=== PATIENT | female | born 1970 | race Caucasian/White ===

== ENCOUNTER 2016-05-04 02:36 | Inpatient (IN) | payer MEDICAID, OTHER ==
[2016-05-04] VITALS (12 sets, daily range): BP systolic 81–127; BP diastolic 47–78; PULSE 55–113; RESP 20–36; TEMP 99; Ht 167.6 cm; Wt 90.0 kg
[~2016-05-04] VITALS: Ht 167.6 cm; Wt 90.0 kg
[~2016-05-04 02:36] MED LIST: ACET650S13 PR; ASCO500S2 GTB; ATOR20TA38 GTB; BISA10SU58 PR; CLON-379 PO; CRAN3875 GTB; ENOX80DI12 SC; FAMO20TA18 PO; FER325 GTB; HYDR-3498 PO; HYDR-3671 PO; INSU100C SC; IPRA12.93 INHALATION; LEVE500S9 PO; MAGN2400 PO; MULT9LIQ4 GTB; ONDA4DIS4 IV; POLY15DR42 BOTH EYES; SENN-53 PO; UDREG GTB
[2016-05-04] MEDS ORDERED: IPRATROPIUM (NEB) 0.5 MG/2.5 ML AMP INH STA (02:44)
[2016-05-04] MEDS ORDERED: ALBUTEROL 0.5% (NEB) 2.5 MG/0.5 ML AMP INH STA (02:44)
--- NOTE | 2016-05-04 03:18 | RADRPT ---
PROCEDURE: CHEST - 1 VIEW CLINICAL INDICATION: 46-year-old female with shortness of breath. TECHNIQUE: A single frontal AP semi-erect view of the chest was performed portably. The images we re reviewed on a PACS workstation. COMPARISON: Chest x-ray January 08, 2016 FINDINGS: The cardiomediastinal silhouette is within normal limits. There is a shallow inspiration. There is no evidence for an infiltrate. There is no evidence for congestive heart failure. There is no evid ence for pneumothorax. The osseous structures are intact. IMPRESSION: No evidence for active cardiopulmonary disease. .Dimitri Montgomery MD, MD Date Time Electronically viewed and signed by .Dimitri Montgomery MD, on 05/04/2016 03:17 .Kathy/
[2016-05-04] MEDS ORDERED: SODIUM CHLORIDE 0.9% 1L BAG IV* STA (03:33)
[2016-05-04 03:35] LABS: ADD UMIC YES; URINE BILIRUBIN (Dip) 2+ (NEGATIVE); URINE BLOOD (Dip) TRACE (NEGATIVE); URINE COLOR AMBER (YELLOW); URINE GLUCOSE (Dip) NEGATIVE (NEGATIVE); URINE KETONES (Dip) 15 (NEGATIVE); URINE LEUKOCYTE ESTERASE (Dip) 1+ (NEGATIVE); URINE NITRITE (Dip) POSITIVE (NEGATIVE); URINE TOTAL PROTEIN (Dip) 2+ (NEGATIVE); URINE UROBILINOGEN (Dip) 1.0 E.U./dL (0.1-1.0)
[2016-05-04 03:38] LABS: BASOPHILS % 0.2 % (0.0-2.0); EOSINOPHILS # 0.3 10^3/ul (0.0-0.5); HEMATOCRIT 28.1 % (37.0-47.0); HEMOGLOBIN 9.4 g/dl (12.0-16.0); LYMPHOCYTES % 7.1 % (15.0-51.0); MEAN CORPUSCULAR HEMOGLOBIN 30.1 pg (29.0-33.0); MEAN CORPUSCULAR HGB CONC 33.7 g/dl (32.0-37.0); MEAN CORPUSCULAR VOLUME 89.3 fl (82.0-101.0); MEAN PLATELET VOLUME 9.7 fl (7.4-10.4); MONOCYTE # 0.5 10^3/ul (0.3-0.9); MONOCYTES % 3.3 % (0.0-11.0); NEUTROPHIL # 12.7 10^3/ul (1.6-7.5); NEUTROPHILS % 87.4 % (39.0-77.0); PLATELET COUNT 355 10^3/UL (140-440); RED BLOOD COUNT 3.14 10^6/ul (4.20-5.40); RED CELL DISTRIBUTION WIDTH 14.9 % (11.5-14.5); UNCORRECTED WBC 14.5 10^3/ul (4.8-10.8); WHITE BLOOD COUNT 14.5 10^3/ul (4.8-10.8)
[2016-05-04 03:48] LABS: CONDITION 1; LH ANALYZER COMMENTS 1; SUSPECT 1
[2016-05-04 03:57] LABS: INR 1.26; PROTIME 15.9 Sec (12.2-14.2); PT RATIO 1.2
[2016-05-04 03:58] LABS: ALBUMIN 3.2 g/dl (3.3-4.9); CHLORIDE 121 mmol/L (97-110)
[2016-05-04] MEDS ORDERED: CEFEPIME 2GM/50 ML (PMX) 50 ML IVPB STA (03:58)
[2016-05-04 03:59] LABS: SODIUM 156 mmol/L (135-144)
[2016-05-04] MEDS ORDERED: VANCOMYCIN 1 GM (PMX) 250 ML IVPB ONE (04:00)
[2016-05-04 04:01] LABS: ALBUMIN/GLOBULIN RATIO 0.72; ALKALINE PHOSPHATASE 389 IU/L (42-121); ANION GAP 23 (8-16); ASPARTATE AMINO TRANSFERASE 19 IU/L (15-46); BLOOD UREA NITROGEN 89 mg/dl (7-20); CARBON DIOXIDE 15 mmol/L (21-31); CREATININE 3.26 mg/dl (0.44-1.00); TOTAL PROTEIN 7.6 g/dl (6.1-8.1)
[2016-05-04 04:02] LABS: ICTOTEST NEGATIVE (NEGATIVE)
[2016-05-04 04:02] LABS: ALANINE AMINOTRANSFERASE 32 IU/L (13-69); CALCIUM 8.8 mg/dl (8.4-10.2); GLUCOSE 213 mg/dl (70-220)
[2016-05-04 04:04] LABS: POTASSIUM 2.9 mmol/L (3.5-5.1)
[2016-05-04 04:04] LABS: BACTERIA,URINE MODERATE; SQUAMOUS EPITHELIAL CELL,UR MODERATE
[2016-05-04 04:24] LABS: TROPONIN-I < 0.012 ng/ml (0.00-0.12)
[2016-05-04 04:25] LABS: PARTIAL THROMBOPLASTIN TIME 29.9 Sec (25.0-35.0)
[2016-05-04] MEDS ORDERED: POTASSIUM CHLORIDE 20 MEQ POWDER FOR ORAL SOLN GTB ONE (04:30)
[2016-05-04] MEDS ORDERED: POTASSIUM CHLORIDE 50 ML IVPB ONE (04:30)
--- NOTE | 2016-05-04 05:53 | ERA ---
ER Documentation Chief Complaint Date/Time DATE: 05/04/16 TIME: 05:51 Chief Complaint effort against vent noted by SO, requested transport to ER HPI This is a 46-year-old female brought in by rescue. Patient is a DNR and do not transfer, however the patient's requests that she be transferred to the ER as he noticed an increased work of breathing. History is per EMS when she noticing a transfer sheet. Patient cannot provide any relevant history secondary to baseline mental status. ROS All systems reviewed and are negative except as per history of present illness. Medications Home Meds Reported Medications Metoclopramide* (Reglan*) 10 Mg/10 Ml Soln, 10 ML GTB, ML 10/23/15 Famotidine* (Famotidine*) 20 Mg Tablet, 20 MG PO DAILY, #30 TAB 10/23/15 Multivit &Minerals/Ferrous Fum (MULTIVITAMIN LIQUID) 9 Mg/15 Ml Liquid, 5 CU GTB DAILY 10/23/15 Magnesium Hydroxide* (Milk Of Magnesia*) 2,400 Mg/10 Oral.susp, 30 ML PO DAILY , ML 10/23/15 Levetiracetam* (Keppra*) 500 Mg/5 Ml Solution, 10 ML PO Q12 for 30 Days, BOTTLE 10/23/15 Ferrous Sulfate* (Ferrous Sulfate*) 325 Mg Tabec, 330 MG GTB TID, TAB 10/23/15 Bisacodyl* (Dulcolax*) 10 Mg/Supp.rect Supp.rect, 10 MG AR Q24H Y for CONSTIPATION, SUPP.RECT 10/23/15 Hydralazine Hcl* (Hydralazine Hcl*) 25 Mg Tab, 25 MG PO Q6, #90 TAB 10/23/15 Clonidine Hcl* (Clonidine Hcl*) 0.1 Mg Tab, 0.1 MG PO Q6, TAB 10/23/15 Ascorbic Acid* (Vitamin C* Liq) 500 Mg/5 Ml Syrup, 500 MG GTB DAILY, ML 10/23/15 Cran/Vitc/Mannose/Inulin/Brom (Uti-Stat Liquid) 3,875 Mg/30 Ml Liquid, 3875 MG GTB DAILY 10/23/15 Atorvastatin Calcium* (Atorvastatin Calcium*) 20 Mg Tablet, 20 MG GTB QHS, #30 TAB 10/23/15 Ipratropium Lud[place]* (Atrovent HFA*) 12.9 Gm Aer.w.adap, 2 PUFF INHALATION Q4 for SHORTNESS OF BREATH, #1 INHALER 08/29/15 Hydrocodone Bit-Acetaminophen* (Schuyler*) 5-325 Mg Tab, 1 TAB PO Q6 Y for PAIN, TAB 08/29/15 Ondansetron HCl/Pf (Ondansetron HCl 4 mg/2 ml Syr) 4 Mg/2 Ml Syringe, 4 MG IV Q6 Y for NAUSEA AND/OR VOMITING 08/29/15 Sennosides* (Senna Lax*) 8.6 Mg Tablet, 2 TAB PO DAILY, TAB 08/29/15 Acetaminophen* (Acetaminophen* Supp) 650 Mg/Supp.rect Supp.rect, 650 MG AR Q4 Y for PAIN OR TEMP ABOVE 38C, SUPP.RECT 08/29/15 Insulin Lispro (Humalog) 100 U/Ml Cartridge, 0 SC SLIDING SCALE AC, EA 08/29/15 Enoxaparin Sodium* (Lovenox*) 80 Mg/0.8 Ml Disp.syrin, 80 MG SC Q12, SYR 08/29/15 Artificial Tears* (Artificial Tears* Ophth) 15 ml Opht, 1 DROP BOTH EYES Q4H WHILE AWAKE Y for DRY EYES, EA 08/29/15 Allergies Allergies: Coded Allergies: No Known Allergy (Unverified , 10/23/15) PMhx/Soc History of Surgery: Yes (c section, peg, trach) Anesthesia Reaction: No Hx Neurological Disorder: Yes (cva) Hx Respiratory Disorders: Yes (resp failure, trach,pe) Hx Cardiac Disorders: Yes (htn, cad, chf) Hx Psychiatric Problems: No Hx Miscellaneous Medical Probl: Yes (CHRONIC ENCEPHALOPATHY) Hx Alcohol Use: No Hx Substance Use: No Hx Tobacco Use: Yes Smoking Status: Former smoker Physical Exam Vitals Vital Signs Date Time Temp Pulse Resp B/P Pulse Ox O2 Delivery O2 Flow Rate FiO2 05/04/16 05:14 120 37 100 40 05/04/16 03:16 121 39 107/54 100 Mechanical Ventilator T Tube Trach Collar 05/04/16 02:47 99.8 124 36 137/71 100 05/04/16 02:45 124 41 100 40 Physical Exam Const: [] Head: Atraumatic Eyes: Normal Conjunctiva ENT: Normal External Ears, Nose and Mouth. Neck: Full range of motion..~ No meningismus. Resp: Clear to auscultation bilaterally Cardio: Regular rate and rhythm, no murmurs Abd: Soft, non tender, non distended. Normal bowel sounds Skin: No petechiae or rashes Back: No midline or flank tenderness Ext: No cyanosis, or edema Neur: Awake and alert Psych: Normal Mood and Affect Result Diagram: 05/04/1630905/04/16 0310 Results 24 hrs Laboratory Tests Test 05/04/16 03:08 05/04/16 03:10 Urine Bacteria MODERATE Urine Bilirubin 2+ Urine Clarity CLEAR Urine Color MARIS Urine Glucose NEGATIVE% Urine Hemoglobin TRACE Urine Ictotest NEGATIVE Urine Ketones 15 Urine Leukocyte Esterase 1+ Urine Microscopic RBC 2-5/HPF Urine Microscopic WBC 5-10/HPF Urine Nitrite POSITIVE Urine Specific [place] 1.025 Urine Squamous Epithelial Cells MODERATE Urine Total Protein 2+ Urine Urobilinogen 1.0 E.U./dL Urine Yeast MANY Urine pH 5.0 Activated Partial Thromboplast Time 29.9Sec Alanine Aminotransferase (ALT/SGPT) 32IU/L Albumin 3.2g/dl Albumin/Globulin Ratio 0.72 Alkaline Phosphatase 389IU/L Anion Gap 23 Aspartate Amino Transf (AST/SGOT) 19IU/L Basophils # 0.010^3/ul Basophils % 0.2% Blood Morphology Comment Blood Urea Nitrogen 89mg/dl Calcium Level 8.8mg/dl Carbon Dioxide Level 15mmol/L Chloride Level 121mmol/L Creatinine 3.26mg/dl Direct Bilirubin 0.00mg/dl Eosinophils # 0.310^3/ul Eosinophils % 2.0% Globulin 4.40g/dl Glucose Level 213mg/dl Hematocrit 28.1% Hemoglobin 9.4g/dl INR International Normalized Ratio 1.26 Indirect Bilirubin 0.0mg/dl Lactic Acid Level 3.3mmol/L Lymphocytes # 1.010^3/ul Lymphocytes % 7.1% Mean Corpuscular Hemoglobin 30.1pg Mean Corpuscular Hemoglobin Concent 33.7g/dl Mean Corpuscular Volume 89.3fl Mean Platelet Volume 9.7fl Monocytes # 0.510^3/ul Monocytes % 3.3% Neutrophils # 12.710^3/ul Neutrophils % 87.4% Nucleated Red Blood Cells # 0.010^3/ul Nucleated Red Blood Cells % 0.0/100WBC Platelet Count 50033^3/UL Potassium Level 2.9mmol/L Prothrombin Time 15.9Sec Prothrombin Time Ratio 1.2 Red Blood Count 3.1410^6/ul Red Cell Distribution Width 14.9% Sodium Level 156mmol/L Total Bilirubin 0.0mg/dl Total Protein 7.6g/dl Troponin I < 0.012ng/ml White Blood Count 14.510^3/ul Current Medications Medications (Trade) Dose Ordered Sig/Maximus Route PRN Reason Start Time Stop Time Status Last Admin Dose Admin Albuterol (Proventil 0.5% (Neb)) 5 mg ONCE STAT INH 05/04/16 02:44 05/04/16 02:45 DC 05/04/16 03:03 Ipratropium Lud[place] (Atrovent 0.02% (Neb)) 0.5 mg ONCE STAT INH 05/04/16 02:44 05/04/16 02:45 DC 05/04/16 03:03 Sodium Chloride 2790 ml 2,790 ml BOLUS OVER 2 HOURS STAT IV* 05/04/16 03:33 05/04/16 03:34 DC 05/04/16 03:55 Cefepime HCl 50 ml @ 100 mls/hr ONCE STAT IVPB 05/04/16 03:58 05/04/16 04:27 DC 05/04/16 04:11 Vancomycin HCl 250 ml @ 125 mls/hr ONCE ONCE IVPB 05/04/16 04:00 05/04/16 05:59 05/04/16 04:46 Potassium Chloride (KCl 20 MEQ/50 ML SW) 50 ml @ 25 mls/hr ONCE ONCE IVPB 05/04/16 04:30 05/04/16 06:29 Potassium Chloride (Potassium Chloride Pwd/Soln) 20 meq ONCE ONCE GTB 05/04/16 04:30 05/04/16 04:31 DC 05/04/16 04:33 Procedures/MDM Patient's infectious symptoms have not stabilized and the patient is at risk of rapid decompensation. The patient will be admitted for careful hydration, antibiotic therapy, and infectious source control. Severe Sepsis Assessment: Infectious Source: [pyleonephritis] End organ damage indicated by: [Lactate > 2.0 mmol/L Hypotension( SBP < 90 or >40 mmHG drop or MAP < 65) Acute Resp Failure (sat < 92% w/o oxygen) [employer] > 2.0 INR > 1.5 Plt < 100 Bili > 2] Severe Sepsis Managment: Blood Cultures X 2 before broad spectrum antibiotics initiated within 3 hours of recognition. 30 ml/kg NS bolus Completed Initial Lactate: Elevated Repeat Lactate pending Critical Care: Time: 45 minutes Treatments/Evaluations: Emergent fluid management, while maintaining close respiratory support. Immediate broad spectrum antibiotic therapy. Simultaneous assessment for possible sources in order to direct therapy. Consideration for invasive and chemical support to prevent respiratory or cardiac collapse. Perfusion Reassessment for Septic Shock: Temp 99, Pulse 116, RR18, BP132/77 Heart Exam: [Tachycardic] Lung Exam: [No Crackles] Capillary Refill: [Delayed] Peripheral Pulses: [Radially present] Skin: [Mottled, pale] Accepting Care Team: Current data and ongoing care discussed. Time: 530 Primary Provider: rosemary Consulting: [XOXOXO] Outstanding Data: none Departure Diagnosis: Primary Impression: Sepsis associated hypotension Condition: Stable JENNIFER PHAN May 04, 2016 05:53
[2016-05-04] MEDS ORDERED: morphine 2 MG INJ IV PRN (07:30)
[2016-05-04] MEDS ORDERED: hydrALAzine 20 MG INJ IV PRN (07:30)
[2016-05-04] MEDS ORDERED: ONDANSETRON HCL IV PRN (07:30)
[2016-05-04] MEDS ORDERED: MAGNESIUM HYDROXIDE 30ML CUP PO PRN (07:30)
[2016-05-04] MEDS ORDERED: ACETAMINOPHEN 325 MG TAB PO PRN (07:30)
[2016-05-04] MEDS ORDERED: ACETAMINOPHEN 650 MG SUPP PR PRN (07:30)
[2016-05-04] MEDS ORDERED: DOCUSATE SODIUM 100 MG CAP PO PRN (07:30)
[2016-05-04] MEDS ORDERED: ONDANSETRON 4 MG INJ IV PRN ×3 (07:30)
[2016-05-04] MEDS ORDERED: NACL 0.9% 3 ML SYG IV SCH (07:30)
[2016-05-04] MEDS ORDERED: NITROGLYCERIN (SL) 0.4 MG TAB SL PRN (07:30)
[2016-05-04] MEDS ORDERED: BISACODYL 10 MG SUPP PR PRN (07:30)
[2016-05-04] MEDS ORDERED: ARTIFICIAL TEARS 15 ML OPH BOTH EYES PRN (07:30)
[2016-05-04] MEDS ORDERED: HYDROCODONE/APAP (5/325) TAB PO PRN ×2 (07:30)
[2016-05-04] MEDS ORDERED: VANCOMYCIN IV PER PHARMACY XX SCH (07:30)
[2016-05-04] MEDS ORDERED: ALBUTEROL/IPRATROPIUM (NEB) 3 ML AMP HHN PRN (07:30)
[2016-05-04] MEDS ORDERED: NA PHOSPHATE/BIPHOS 133 ML ENEMA PR PRN (07:30)
[2016-05-04] MEDS ORDERED: ENOXAPARIN 80 MG/0.8 ML SYG SC SCH (09:00)
[2016-05-04] MEDS ORDERED: GLUCOSE GEL 15 GRAM TUBE BUCCAL PRN (09:00)
[2016-05-04] MEDS ORDERED: MAGNESIUM HYDROXIDE PO SCH (09:00)
[2016-05-04] MEDS ORDERED: DEXTROSE 50% 50 ML SYRINGE IV PRN ×2 (09:00)
[2016-05-04] MEDS ORDERED: NON-FORMULARY/PATIENT OWN MED (Cran/Vitc/Mannose/Inulin/Brom (Uti-Stat Liquid) 3,875 MG) GTB SCH (09:00)
[2016-05-04] MEDS ORDERED: GLUCAGON 1 MG INJ IM PRN (09:00)
[2016-05-04] MEDS ORDERED: GLUCOSE GEL 15 GRAM TUBE PO PRN ×2 (09:00)
[2016-05-04] MEDS ORDERED: HEPARIN 5,000 UNIT/0.5 ML SYG SC SCH (09:00)
[2016-05-04 09:40] LABS: AADO2 Arterial 70.1 mmHg (7.0-24.0); Allen Test ACCEPTAB; Arterial Base Excess -8.9 mmol/L (-3.0-3); Arterial COHb 0.3 % (0.0-3.0); Arterial Fraction of Oxyhgb 98.2 % (93.0-99.0); Arterial HCO3 12.9 mmol/L (22.0-26.0); Arterial MetHb 0.5 % (0.0-1.5); Arterial Total Hemglobin 8.1 g/dl (12.0-18.0); MODE VENT - AC
[2016-05-04] MEDS: DEXTROSE 5% 1,000 ML IV SCH ×2 (09:51→17:02)
[2016-05-04] MEDS: ASCORBIC ACID 500 MG TAB PO SCH (09:52)
[2016-05-04] MEDS: SENNA TAB GTB SCH (09:52)
[2016-05-04] MEDS: LEVETIRACETAM (100 MG/ML) 5ML CUP GTB SCH ×2 (09:52→21:25)
[2016-05-04] MEDS: FAMOTIDINE 20 MG TAB PO SCH (09:52)
--- NOTE | 2016-05-04 10:01 | QN ---
Documentation Comment Observation Note: Time: 4 hours Family Hx: Negative for diabetes Evaluation: Multiple exams showed improving symptoms and no evidence of clinical decompensation. WILSON LIND MD May 04, 2016 10:01
[2016-05-04] MEDS: INSULIN ASPART [NOVOLOG] 3 ML PEN SC SCH ×4 (10:09→21:33)
--- NOTE | 2016-05-04 14:14 | HP ---
DATE OF ADMISSION: 05/04/2016 CONSULTANTS: 1. Dr. Delmar Kline 2. Infectious disease CHIEF COMPLAINT: Notation: Great amount of information was obtained from the patient's previous art and ER doctor; the patient is not able to provide any information. Effort against vent noted by [facility], requested transfer to the emergency room. 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 [facility] was found to have respiratory distress; therefore, was brought into the emergency room via EMS secondary to having effort against ventilation. The patient's reque sted that the patient be transferred to the emergency room as he noticed increased work of breathing . The patient is not able to provide any relevant history secondary to baseline mental status. PAST MEDICAL AND SURGICAL HISTORY: As above per HPI. MEDICATIONS: 1. Tylenol. 2. [place]. 3. Vitamin C. 4. Lipitor. 5. Colace. 6. Dulcolax suppository. 7. Clonidine. 8. Multivitamin. 9. Lovenox. 10. Artificial tear. 11. Famotidine. 12. Ferrous sulfate. 13. Hydralazine. 14. Insulin lispro. 15. Atrovent. 16. Keppra. 17. Milk of magnesia. 18. Reglan. 19. Zofran. 20. Senna. ALLERGIES: NO KNOWN DRUG ALLERGIES. FAMILY HISTORY: Noncontributory. SOCIAL HISTORY: She is a former smoker, resides at the [facility]. Alcohol and illic it drugs is unknown. REVIEW OF SYSTEMS: As above per HPI, otherwise unobtainable secondary to the patient is not able to provide me any information. PHYSICAL EXAMINATION: VITAL SIGNS: Temperature 99.0, pulse 109, respiration rate 30 to 38, blood pressure 99/59, saturati on 100% on mechanical valve, FIO2 of 40%. GENERAL APPEARANCE: The patient is lying in the bed, does not respond to any pain or verbal stimuli . Has right-sided facial droop. Pupils are reactive to light bilaterally. NECK: There is a tracheostomy in place. LUNGS: Clear to auscultate bilaterally. ABDOMEN: There is a PEG tube in place. GASTROINTESTINAL: Abdomen is soft, nontender, not distended. CARDIOVASCULAR: Normal S1, S2. Atrial fibrillation. GENITOURINARY: There is a Reynolds in place.: Upper and lower extremities are flaccid. Positive cecilia a, bilateral lower extremities. NEUROLOGIC: No meaningful neurologic examination, is not obtainable secondary to patient is not abl e to follow any commands. LABORATORY WORK: WBC 14.5, hemoglobin 9.4, hematocrit 28.1, platelets 355. Sodium 156, potassium 2 .9, chloride 121, bicarbonate 15, BUN 89, creatinine 3.26, glucose 213, alkaline phosphatase 389. IMAGING: Chest x-ray: No evidence of active cardiopulmonary disease. Urinalysis: Positive nitrit es, bilirubin positive 2, leukocyte esterase positive 1. ASSESSMENT AND PLAN: 1. Sepsis, likely secondary to urinary tract infection. The patient has been started on Zosyn and vancomycin. Infectious disease doctor will be consulted. 2. Ventilator-dependent respiratory failure, status post trach. Pulmonology has been consulted. 3. Acute renal insufficiency, likely secondary to sepsis versus dehydration. We will consult nephr ology. The patient has been started on IV fluids. 4. Diabetes mellitus. Place the patient on insulin sliding scale. Continue Lantus. 5. History of hemorrhagic cerebrovascular accident. No acute issues at this time. 6. Dyslipidemia. Continue Lipitor. 7. Acute on chronic respiratory failure, vent-dependent, stable at this time, the patient's oxygen saturation is stable. 8. Hypertension, well controlled on medical management. We will continue to monitor patient closely. Further recommendations, management and treatment as p er clinical course. Total amount of time that was spent for evaluation of this patient and admission workup, 50 minutes. Dictated By: AMY HANKINS MD PN/NTS Conf#: [id number] DID#: [id number]
[2016-05-04] MEDS ORDERED: POTASSIUM CHLORIDE 20 MEQ in SOD CHLORIDE 0.9% 100 ML IVPB ONE (15:30)
[2016-05-04] MEDS: MULTIVITAMINS 5 ML CUP GTB SCH (15:38)
[2016-05-04] MEDS: PIPER-TAZO 3.375 GM IV (PMX) 100 ML IVPB SCH ×2 (15:39→17:01)
[2016-05-04 15:46] LABS: ADD UMIC YES; URINE BILIRUBIN (Dip) 2+ (NEGATIVE); URINE BLOOD (Dip) NEGATIVE (NEGATIVE); URINE COLOR AMBER (YELLOW); URINE GLUCOSE (Dip) NEGATIVE (NEGATIVE); URINE KETONES (Dip) 15 (NEGATIVE); URINE LEUKOCYTE ESTERASE (Dip) TRACE (NEGATIVE); URINE NITRITE (Dip) POSITIVE (NEGATIVE); URINE TOTAL PROTEIN (Dip) 2+ (NEGATIVE); URINE UROBILINOGEN (Dip) 1.0 E.U./dL (0.1-1.0)
[2016-05-04] MEDS ORDERED: VANCOMYCIN 750 MG in SOD CHLORIDE 0.9% 150 ML IVPB SCH (16:00)
[2016-05-04 16:24] LABS: BACTERIA,URINE MANY; SQUAMOUS EPITHELIAL CELL,UR FEW
[2016-05-04 16:25] LABS: ICTOTEST NEGATIVE (NEGATIVE)
[2016-05-04 16:54] LABS: POTASSIUM 3.2 mmol/L (3.5-5.1)
--- NOTE | 2016-05-04 16:54 | CONS ---
DATE OF ADMISSION: 05/04/2016 DATE OF CONSULTATION: 05/04/2016 TYPE OF CONSULTATION: Infectious Disease. REASON FOR CONSULTATION: Antibiotic management. HISTORY OF PRESENT ILLNESS: Britt Kenny is a 26-year-old female with numerous problems who was brought in by rescue. She is a DNR. Her problems include: 1. Ventilatory dependent respiratory failure, status post trach. 2. Dysphagia, status post percutaneous endoscopic gastrostomy. 3. Chronic encephalopathy. 4. Hypertension. 5. Coronary artery disease. 6. Congestive heart failure. 7. Status post . 8. History of being a former smoker. 9. Adult-onset diabetes mellitus. 10. Shortness of breath. The patient is on numerous medications for her breathing. She was uday t in with a white count of 14.5, H and H 9.4 and 28.1, platelet count 355,000. BUN and creatinine 8 9/3.26, glucose of 213,000. PAST MEDICAL HISTORY: Operations as outlined. FAMILY HISTORY: Noncontributory. SOCIAL HISTORY: She is a former smoker. She does not drink or abuse drugs. ALLERGIES: NONE TO PENICILLIN, SULFA OR FOODS. MEDICATIONS: Per chart. REVIEW OF SYSTEMS: As per HPI. PHYSICAL EXAMINATION: GENERAL: The patient is a chronically ill-appearing female who is obtunded on a respirator. She townsend s a trach-type Reynolds. SKIN: Without generalized rash. HEENT: Within normal limits. NECK: Supple. LYMPH NODES: None palpable. CHEST: Decreased breath sounds at the bases. HEART: Without murmur or gallop. ABDOMEN: Soft, nontender, without organosplenomegaly or masses. EXTREMITIES: Without cyanosis, clubbing, or edema. RECTAL AND GENITAL: Deferred. NEUROLOGIC: No focal neurological abnormalities. A chest x-ray was done which showed no active cardiopulmonary disease. Lactic acid was drawn. Urin e cultures and blood cultures were done. The patient was started on vancomycin and cefepime. We wi ll continue her on this current regimen. I will dictate my findings to Dr. Rivero . Dictated By: PAT MACHADO MD, JD/RAMIRO Conf#: [id number] DID#: [id number]
[2016-05-04 16:57] LABS: CREATININE 3.01 mg/dl (0.44-1.00)
--- NOTE | 2016-05-04 16:57 | CONS ---
Date/Time of Note Date/Time of Note DATE: 05/04/16 TIME: 16:55 Assessment/Plan Assessment/Plan Chief Complaint/Hosp Course ALEJANDRO ATN UNDERLYING PRE RENAL AZOTEMIA HYPERNATREMIA FREE WATER DEFICIT SEPSIS RES FAILURE PLAN LYTES ANTIBIOTIC UA IV FLUID Problems: Consultation Date/Type/Reason Admit Date/Time May 04, 2016 at 05:51 Initial Consult Date Type of Consultation: [id number] 24 HR Interval Summary Subjective hx not possible: pt non-verbal Exam/Review of Systems Vital Signs Vitals Vital Signs Date Time Temp Pulse Resp B/P Pulse Ox O2 Delivery O2 Flow Rate FiO2 05/04/16 16:25 105 05/04/16 16:02 36 100 40 05/04/16 15:24 101.1 127/78 05/04/16 13:00 Mechanical Ventilator Exam Neck: supple Respiratory: diminished breath sounds Cardiovascular: regular rate and rhythm Gastrointestinal: bowel sounds (+), soft, No tender Extremities: No edema Results Result Diagram: 05/04/16 0310 05/04/16 1555 Results 24 hrs Laboratory Tests Test 05/04/16 03:03 05/04/16 03:08 05/04/16 03:10 05/04/16 05:19 Bedside Glucose 221 H Urine Bacteria MODERATE Urine Bilirubin 2+ H Urine Clarity CLEAR Urine Color MARIS Urine Glucose NEGATIVE Urine Hemoglobin TRACE Urine Ictotest NEGATIVE Urine Ketones 15 Urine Leukocyte Esterase 1+ H Urine Microscopic RBC 2-5 Urine Microscopic WBC 5-10 Urine Nitrite POSITIVE H Urine Specific [place] 1.025 Urine Squamous Epithelial Cells MODERATE Urine Total Protein 2+ H Urine Urobilinogen 1.0 E.U./dL Urine Yeast MANY Urine pH 5.0 Activated Partial Thromboplast Time 29.9 Alanine Aminotransferase (ALT/SGPT) 32 Albumin 3.2 L Albumin/Globulin Ratio 0.72 Alkaline Phosphatase 389 H Anion Gap 23 H Aspartate Amino Transf (AST/SGOT) 19 Basophils # 0.0 Basophils % 0.2 Blood Morphology Comment Blood Urea Nitrogen 89 H Calcium Level 8.8 Carbon Dioxide Level 15 L Chloride Level 121 H Creatinine 3.26 H Direct Bilirubin 0.00 Eosinophils # 0.3 Eosinophils % 2.0 Globulin 4.40 H Glucose Level 213 Hematocrit 28.1 L Hemoglobin 9.4 L INR International Normalized Ratio 1.26 Indirect Bilirubin 0.0 Lactic Acid Level 3.3 H 2.4 H Lymphocytes # 1.0 Lymphocytes % 7.1 L Mean Corpuscular Hemoglobin 30.1 Mean Corpuscular Hemoglobin Concent 33.7 Mean Corpuscular Volume 89.3 Mean Platelet Volume 9.7 # Monocytes # 0.5 Monocytes % 3.3 Neutrophils # 12.7 H Neutrophils % 87.4 H Nucleated Red Blood Cells # 0.0 Nucleated Red Blood Cells % 0.0 Platelet Count 355 Potassium Level 2.9 *L Prothrombin Time 15.9 H Prothrombin Time Ratio 1.2 Red Blood Count 3.14 L Red Cell Distribution Width 14.9 H Sodium Level 156 H Total Bilirubin 0.0 L Total Protein 7.6 Troponin I < 0.012 White Blood Count 14.5 #H Test 05/04/16 09:23 05/04/16 10:06 05/04/16 10:40 05/04/16 13:15 Arterial Blood HCO3 12.9 L Arterial Blood Base Excess -8.9 L Arterial Blood Oxygen Saturation 99.0 H David Test ACCEPTAB Arterial Blood Gas Puncture Site Right Radial Arterial Blood Carboxyhemoglobin 0.3 Arterial Blood Date Drawn 05/04/2016 9:26:30 AM Arterial Blood Methemoglobin 0.5 Arterial Blood pCO2 (Temp correct) 17.1 L Arterial Blood pH (Temp corrected) 7.495 H Arterial Blood pO2 (Temp corrected) 195.4 H Blood Gas A-a O2 Differential 70.1 H Blood Gas Actual Respiration Rate 38 Blood Gas Critical Value Read Back WILSON GAUTHIER Blood Gas Inspiratory Pressure 30.0 Blood Gas Low PEEP Setting 5.0 Blood Gas Modality VENT - AC Blood Gas Notified Time 05/04/2016 9:40:18 AM Blood Gas Notified Whom KOLTON RTAngelia Blood Gas Respiration Rate 14.0 Blood Gas Specimen Source Blood arterial Blood Gas Temperature 37.0 Blood Gas Tidal Volume 525.0 FiO2 40.0 Oxyhemoglobin Percent 98.2 Total Hemoglobin 8.1 L Bedside Glucose 193 Free Thyroxine 1.11 Lactic Acid Level 2.5 H 3.1 H Test 05/04/16 14:45 05/04/16 14:58 05/04/16 15:55 Urine Bacteria MANY Urine Bilirubin 2+ H Urine Clarity CLEAR Urine Color MARIS Urine Glucose NEGATIVE Urine Hemoglobin NEGATIVE Urine Ictotest NEGATIVE Urine Ketones 15 Urine Leukocyte Esterase TRACE H Urine Microscopic RBC 5-10 Urine Microscopic WBC 5-10 Urine Nitrite POSITIVE H Urine Specific [place] 1.020 Urine Squamous Epithelial Cells FEW Urine Total Protein 2+ H Urine Urobilinogen 1.0 E.U./dL Urine Yeast MANY Urine pH 5.0 Bedside Glucose 209 Anion Gap Pending Blood Urea Nitrogen Pending Calcium Level Pending Carbon Dioxide Level Pending Chloride Level 123 H Creatinine Pending Glucose Level Pending Potassium Level 3.2 L Sodium Level 153 H Medications Medications Current Medications Acetaminophen (Tylenol Tab) 650 mg Q6H PRN PO PAIN LEVEL 1-3 OR FEVER; Start 05/04/16 at 07:30 Acetaminophen/ Hydrocodone Bitart ([place]ason (5/325)) 1 tab Q6H PRN PO MODERATE PAIN LEVEL 4-6; Start 05/04/16 at 07:30 Morphine Sulfate (morphine) 2 mg Q4H PRN IV SEVERE PAIN LEVEL 7-10; Start at 07:30 Docusate Sodium (Colace) 100 mg Q12H PRN PO CONSTIPATION; Start 05/04/16 at 07 :30 Magnesium Hydroxide (Milk Of Mag) 30 ml DAILY PRN PO CONSTIPATION; Start 05/04 at 07:30 Sodium Biphosphate/ Sodium Phosphate (Fleet Enema) 133 ml DAILY PRN GA CONSTIPATION; Start 05/04/16 at 07:30 Heparin Sodium (Porcine) (Heparin (5000 Units/0.5 ml)) 5,000 unit Q12 SC Last administered on 05/04/16at 09:53; Admin Dose 5,000 UNIT; Start 05/04/16 at 09: 00 Ondansetron HCl (Zofran Inj) 4 mg Q6H PRN IV NAUSEA AND/OR VOMITING; Start at 07:30 Lorazepam 0.5 mg 0.5 mg Q6H PRN IV ANXIETY; Start 05/04/16 at 07:30 Piperacillin Sod/ Tazobactam Sod (Zosyn 3.375gm/ 100 ml (Pmx)) 100 ml @ 200 mls /hr Q6 IVPB Last administered on 05/04/16at 15:39; Admin Dose 200 MLS/HR; Start 05/04/16 at 12:00 Hydralazine HCl (Apresoline) 10 mg Q6H PRN IV ELEVATED BLOOD PRESSURE; Start 05/04/16 at 07:30 Nitroglycerin (Nitroglycerin (Sl Tab) 0.4 Mg) 1 tab Q5M PRN SL ANGINA; Start 05/04/16 at 07:30 Insulin Aspart (Novolog Insulin Pen) NOVOLOG *MILD* ALGORI... Q4 SC Last administered on 05/04/16at 15:46; Admin Dose 2 UNIT; Start 05/04/16 at 09:00 Acetaminophen (Tylenol Supp) 650 mg Q4 PRN GA PAIN OR TEMP ABOVE 38C; Start at 07:30 Ascorbic Acid (Vitamin C) 500 mg DAILY PO Last administered on 05/04/16at 09:52 ; Admin Dose 500 MG; Start 05/04/16 at 09:00 Atorvastatin Calcium (Lipitor) 20 mg QHS GTB ; Start 05/04/16 at 21:00 Bisacodyl (Dulcolax Supp) 10 mg Q24H PRN GA CONSTIPATION; Start 05/04/16 at 07 :30 Clonidine (Catapres) 0.1 mg Q6 PO Last administered on 05/04/16at 15:39; Admin Dose 0.1 MG; Start 05/04/16 at 12:00 Enoxaparin Sodium (Lovenox) 80 mg Q12 SC Last administered on 05/04/16 09:52 ; Admin Dose 80 MG; Start 05/04/16 at 09:00 Famotidine (Pepcid) 20 mg DAILY PO Last administered on 05/04/16 09:52; Admin Dose 20 MG; Start 05/04/16 at 09:00 Hydralazine HCl (Apresoline) 25 mg Q6 PO Last administered on 05/04/16 15:39 ; Admin Dose 25 MG; Start 05/04/16 at 12:00 Levetiracetam (Keppra Liquid) 1,000 mg Q12 GTB Last administered on 05/04/16 09:52; Admin Dose 1,000 MG; Start 05/04/16 at 09:00 Senna (Senokot) 2 tab DAILY GTB Last administered on 05/04/16 09:52; Admin Dose 2 TAB; Start 05/04/16 at 09:00 Multivitamins 5 ml 5 ml DAILY GTB Last administered on 05/04/16at 15:38; Admin Dose 5 ML; Start 05/04/16 at 09:00 Dextrose (D5W) 1,000 ml @ 100 mls/hr Q10H IV Last administered on 05/04/16at 09:51; Admin Dose 100 MLS/HR; Start 05/04/16 at 07:30 Miscellaneous Information 1 ea NOTE XX ; Start 05/04/16 at 09:00 Glucose (Glutose) 15 gm Q15M PRN PO DECREASED GLUCOSE; Start 05/04/16 at 09:00 Glucose (Glutose) 22.5 gm Q15M PRN PO DECREASED GLUCOSE; Start 05/04/16 at 09: 00 Dextrose (D50w Syringe) 25 ml Q15M PRN IV DECREASED GLUCOSE; Start 05/04/16 at 09:00 Dextrose (D50w Syringe) 50 ml Q15M PRN IV DECREASED GLUCOSE; Start 05/04/16 at 09:00 Glucagon (Glucagen) 1 mg Q15M PRN IM DECREASED GLUCOSE; Start 05/04/16 at 09: 00 Glucose 15 gm 15 gm Q15M PRN BUCCAL DECREASED GLUCOSE; Start 05/04/16 at 09:00 Vancomycin HCl/ Sodium Chloride (Vancocin/NS) 150 ml @ 75 mls/hr ONCE IVPB ; Start 05/04/16 at 16:00; Stop 05/04/16 at 17:59 Influenza Virus Vaccine (Fluzone) 0.5 ml ONCE ONCE IM* ; Start 05/05/16 at 09: 00; Stop 05/05/16 at 09:01 AMBER LIEBERMAN MD May 04, 2016 16:57
[2016-05-04] MEDS: ACETAMINOPHEN 650MG/20.3ML CUP GTB PRN (18:13)
--- NOTE | 2016-05-04 18:52 | CONS ---
DATE OF ADMISSION: 05/04/2016 DATE OF CONSULTATION: TYPE OF CONSULTATION: Nephrology patient's ECG above. Thank you, Dr. Rivero, for kindly asking me to see this patient in consultation. HISTORY OF PRESENT ILLNESS: The patient is a 46-year-old female with history of hemorrhagic CVA, presented with septic syndrome. The patient previously was admitted with a diagnosis of severe hydrocephalus status post ventriculoperitoneal shunt replacement status post [employer] shunt infection, history of large abdominal abscess status post drainage, history of MRSA infection, history of Deyanira glabrata infection, history of chronic encephalopathy, history of Proteus mirabilis UTI, history of , history of diabetes, history of PE, tracheostomy, G-tube placement, seizure disorder, dysphagia, hypertension, CKD. ALLERGY HISTORY: NEGATIVE. FAMILY HISTORY: Not available. SOCIAL HISTORY: Cannot be obtained. MEDICATION HISTORY: Listed as home medications. The patient is on: 1. [place]. 2. Ascorbic acid. 3. Lipitor. 4. Bisacodyl. 5. Clonidine. 6. Lovenox. 7. Pepcid. 8. norco. 9. Hydralazine. 10. Insulin. 11. Keppra. 12. Magnesium. 13. Reglan. 14. Multiple vitamin. 15. Senna. CURRENT MEDICATIONS: The patient is on: 1. Tylenol suppository. 2. [place]. 3. Albuterol. 4. Ascorbic acid. 5. Atorvastatin. 6. Clonidine. 7. Docusate sodium. 8. Lovenox. 9. Pepcid 10. Glucagon. 11 Heparin. 12. Insulin. 13. Hydralazine. 14. Zosyn. 15. Senna. 16. ____ivfluid 17. Vancomycin. REVIEW OF SYSTEMS: Cannot be obtained. PHYSICAL EXAMINATION: GENERAL: The patient is on vent. VITAL SIGNS: Pulse of 110, blood pressure 127/78, temperature 101.1. HEENT: No scalp lesion noted at this point. Pupils, voluntary closing of both eyes. NECK: Tracheostomy in place. MOUTH: Dry mucous membranes. LUNGS: Clear anteriorly with a few rhonchi and basilar rhonchi. CARDIOVASCULAR: S1, S2 is normal. ABDOMEN: Nontender. Bowel sounds positive. G-tube in place. No palpable mass. EXTREMITIES: No cyanosis, clubbing, edema. CENTRAL NERVOUS SYSTEM: On the vent, noncommunicative. LABORATORY DATA: WBC 14.5, hematocrit 28.1, platelet count 355. Sodium high, potassium 2.9, chloride 121, CO2 15, BUN 18, creatinine 2.26. Lactic acid 3.3 . Urine specific and ketone positive. IMPRESSION: 1. Patient has ewaeo-tn-dijfusv kidney disease. 2. Acute renal failure due to dehydration. 3. Underlying acute tubular necrosis due to sepsis. 4. Severe sepsis. 5. hypernatremia. 6. Free water deficit. 7. Hypokalemia. 8. Lactic acidosis. 9. Normal alkaline phosphatase. 10. Anemia. 11. History of tracheostomy. PLAN: To obtain a UA, urine sodium, creatinine, eosinophil, IV fluids. Follow patient's electrolytes. Ultrasound of the kidney if kidney function does improve. The patient will also have water deficit replaced with G-tube water. Thank you, Dr. Rivero, for kindly asking me to see this patient in nephrology consultation. Dictated By: AMBER MURILLO/RAMIRO Conf#: [id number] DID#: [id number] JOSE GUADALUPE
[2016-05-04] MEDS: ATORVASTATIN 20 MG TAB GTB SCH (21:25)
[2016-05-05] VITALS (62 sets, daily range): BP systolic 74–133; BP diastolic 34–80; PULSE 60–114; RESP 18–39
[2016-05-05] MEDS: DEXTROSE 5% 1,000 ML IV SCH ×2 (01:24→12:01)
[2016-05-05] MEDS: PIPER-TAZO 3.375 GM IV (PMX) 100 ML IVPB SCH ×2 (01:27→09:25)
[2016-05-05] MEDS: INSULIN ASPART [NOVOLOG] 3 ML PEN SC SCH ×6 (01:34→21:41)
[2016-05-05 06:50] LABS: BASOPHILS % 0.1 % (0.0-2.0); EOSINOPHILS # 0.5 10^3/ul (0.0-0.5); EOSINOPHILS % 3.4 % (0.0-7.0); HEMATOCRIT 24.8 % (37.0-47.0); HEMOGLOBIN 8.5 g/dl (12.0-16.0); LYMPHOCYTES % 6.3 % (15.0-51.0); MEAN CORPUSCULAR HEMOGLOBIN 30.4 pg (29.0-33.0); MEAN CORPUSCULAR HGB CONC 34.1 g/dl (32.0-37.0); MEAN CORPUSCULAR VOLUME 89.3 fl (82.0-101.0); MEAN PLATELET VOLUME 9.8 fl (7.4-10.4); MONOCYTE # 0.6 10^3/ul (0.3-0.9); NEUTROPHIL # 13.4 10^3/ul (1.6-7.5); NEUTROPHILS % 86.2 % (39.0-77.0); PLATELET COUNT 282 10^3/UL (140-440); RED BLOOD COUNT 2.78 10^6/ul (4.20-5.40); RED CELL DISTRIBUTION WIDTH 14.8 % (11.5-14.5); UNCORRECTED WBC 15.5 10^3/ul (4.8-10.8); WHITE BLOOD COUNT 15.5 10^3/ul (4.8-10.8)
[2016-05-05 06:56] LABS: ALBUMIN 2.5 g/dl (3.3-4.9)
[2016-05-05 06:56] LABS: CONDITION 1; LH ANALYZER COMMENTS 1; SUSPECT 1
[2016-05-05 06:57] LABS: POTASSIUM 3.2 mmol/L (3.5-5.1)
[2016-05-05 06:59] LABS: ALBUMIN/GLOBULIN RATIO 0.65; BILIRUBIN,INDIRECT 0.1 mg/dl (0-1.1); BILIRUBIN,TOTAL 0.1 mg/dl (0.2-1.3); CREATININE 3.39 mg/dl (0.44-1.00); TOTAL PROTEIN 6.3 g/dl (6.1-8.1)
[2016-05-05 07:00] LABS: CALCIUM 7.9 mg/dl (8.4-10.2)
[2016-05-05 07:33] LABS: THYROID STIMULATING HORMONE 2.17 MIU/L (0.465-4.680)
[2016-05-05 07:37] LABS: MAGNESIUM 2.1 mg/dl (1.7-2.5); PHOSPHORUS 3.2 mg/dl (2.5-4.9)
[2016-05-05] MEDS ORDERED: INFLUENZA VIRUS VACCINE 0.5 ML (DISPENSING) IM* ONE (09:00)
[2016-05-05] MEDS: SENNA TAB GTB SCH (09:00)
[2016-05-05] MEDS: MULTIVITAMINS 5 ML CUP GTB SCH (09:24)
[2016-05-05] MEDS: LEVETIRACETAM (100 MG/ML) 5ML CUP GTB SCH ×2 (09:24→21:37)
[2016-05-05] MEDS: ACETAMINOPHEN 650MG/20.3ML CUP GTB PRN ×2 (09:24→21:37)
[2016-05-05] MEDS: ASCORBIC ACID 500 MG TAB PO SCH (09:24)
[2016-05-05] MEDS: ENOXAPARIN 100 MG/ML SYG SC SCH (09:26)
[2016-05-05] MEDS: FAMOTIDINE 20 MG TAB PO SCH (09:26)
[2016-05-05] MEDS: VORICONAZOLE 200 MG TAB PO SCH ×2 (13:06→21:37)
--- NOTE | 2016-05-05 13:59 | PN ---
Date/Time of Note Date/Time of Note DATE: 05/05/16 TIME: 13:52 Assessment/Plan VTE Prophylaxis VTE Prophylaxis Intervention: SCD's Lines/Catheters IV Catheter Type (from Nrsg): Peripheral IV Assessment/Plan Chief Complaint/Hosp Course ASSESSMENT AND PLAN: 1. Sepsis, likely secondary to urinary tract infection versus sacral decubitus. The patient has been started on Zosyn and vancomycin. Infectious disease doctor will be consulted. We'll continue monitor patient blood pressure, if patient blood pressure started to decline we will transfer the patient to ICU 2. Ventilator-dependent respiratory failure, status post trach. Pulmonology has been consulted. 3. Acute renal insufficiency, likely secondary to sepsis versus dehydration. We will consult nephrology. The patient has been started on IV fluids. 4. Diabetes mellitus. Place the patient on insulin sliding scale. Continue Lantus. 5. History of hemorrhagic cerebrovascular accident. No acute issues at this time. 6. Dyslipidemia. Continue Lipitor. 7. Acute on chronic respiratory failure, vent-dependent, stable at this time, the patient's oxygen saturation is stable. 8. Essential Hypertension, at this time patient blood pressure is found to be hypotensive therefore we will hold all blood pressure medications 9. C. difficile toxin, start Flagyl We will continue monitor patient closely for recommendation management treatment as per clinical course Problems: Subjective 24 Hr Interval Summary Free Text/Dictation Patient was found to have systolic blood pressure of low 80s this morning After speaking to her over the phone he has decided to change the CODE STATUS from DNR to full code Patient is unresponsive to pain or verbal stimuli Exam/Review of Systems Vital Signs Vitals Vital Signs Date Time Temp Pulse Resp B/P Pulse Ox O2 Delivery O2 Flow Rate FiO2 05/05/16 12:20 106 05/05/16 11:30 74/34 05/05/16 11:19 101.4 28 100 05/05/16 11:15 40 05/04/16 20:00 Mechanical Ventilator Intake and Output 05/04/16 05/04/16 05/05/16 15:00 23:00 07:00 Intake Total 300 ml 600 ml Output Total 300 ml Balance 0 ml 600 ml Exam General: The patient is a phasic, on vent via trach, does not respond to any pain or verbal stimuli HEENT: Atraumatic, normocephalic. The pupils are equal Neck: Supple , trach in place Chest: Normal Lungs: Decreased breath sounds bilateral lower lung field, positive crackles Heart: Normal S1-S2, Regular rhythm and rate. Abdomen: Soft , nontender, nondistended , bowel sounds are present. PEG tube in place Extremities: Flaccid, + 2 edema no cyanosis Neurologic: No meaningful neurologic examination findings Skin: Stage IV sacral decubitus Results Result Diagram: 05/05/16 0500 05/05/16 0555 Results 24 hrs Laboratory Tests Test 05/04/16 14:45 05/04/16 14:58 05/04/16 15:55 05/04/16 17:06 Urine Bacteria MANY Urine Bilirubin 2+ H Urine Clarity CLEAR Urine Color MARIS Urine Eosinophils % 0.0 Urine Glucose NEGATIVE Urine Hemoglobin NEGATIVE Urine Ictotest NEGATIVE Urine Ketones 15 Urine Leukocyte Esterase TRACE H Urine Microscopic RBC 5-10 Urine Microscopic WBC 5-10 Urine Nitrite POSITIVE H Urine Osmolality 399 Urine Random Sodium 21 L Urine Specific [place] 1.020 Urine Squamous Epithelial Cells FEW Urine Total Protein 2+ H Urine Urobilinogen 1.0 E.U./dL Urine Yeast MANY Urine pH 5.0 Bedside Glucose 209 201 Anion Gap 20 H Blood Urea Nitrogen 87 H Calcium Level 8.0 L Carbon Dioxide Level 13 L Chloride Level 123 H Creatinine 3.01 H Glucose Level 194 Potassium Level 3.2 L Prealbumin 17.4 L Sodium Level 153 H Test 05/04/16 18:40 05/04/16 21:29 05/05/16 01:31 05/05/16 05:00 Lactic Acid Level 3.5 H Osmolality 341 H Bedside Glucose 156 154 Basophils # 0.0 Basophils % 0.1 Blood Morphology Comment Differential Comment AUTO w/SCAN Eosinophils # 0.5 Eosinophils % 3.4 Hematocrit 24.8 L Hemoglobin 8.5 L Lymphocytes # 1.0 Lymphocytes % 6.3 L Mean Corpuscular Hemoglobin 30.4 Mean Corpuscular Hemoglobin Concent 34.1 Mean Corpuscular Volume 89.3 Mean Platelet Volume 9.8 Monocytes # 0.6 Monocytes % 4.0 Neutrophils # 13.4 H Neutrophils % 86.2 H Nucleated Red Blood Cells # 0.0 Nucleated Red Blood Cells % 0.0 Platelet Count 282 # Red Blood Count 2.78 L Red Cell Distribution Width 14.8 H White Blood Count 15.5 H Test 05/05/16 05:02 05/05/16 05:55 05/05/16 07:49 05/05/16 11:59 Bedside Glucose 176 159 223 H Alanine Aminotransferase (ALT/SGPT) 24 Albumin 2.5 L Albumin/Globulin Ratio 0.65 Alkaline Phosphatase 270 H Anion Gap 20 H Aspartate Amino Transf (AST/SGOT) 17 Blood Urea Nitrogen 88 H Calcium Level 7.9 L Carbon Dioxide Level 13 L Chloride Level 122 H Cholesterol Level 96 L Cholesterol/HDL Ratio 8.0 Creatinine 3.39 H Direct Bilirubin 0.00 Globulin 3.80 H Glucose Level 151 HDL Cholesterol 12 L Hemoglobin A1c 6.0 H Indirect Bilirubin 0.1 LDL Cholesterol, Calculated 22 Magnesium Level 2.1 Phosphorus Level 3.2 Potassium Level 3.2 L Sodium Level 152 H Thyroid Stimulating Hormone (TSH) 2.170 Total Bilirubin 0.1 L Total Protein 6.3 # Triglycerides Level 312 H Test 05/05/16 13:05 Lactic Acid Level 3.3 H Medications Medications Current Medications Acetaminophen/ Hydrocodone Bitart ([place] (5/325)) 1 tab Q6H PRN PO MODERATE PAIN LEVEL 4-6; Start 05/04/16 at 07:30 Morphine Sulfate (morphine) 2 mg Q4H PRN IV SEVERE PAIN LEVEL 7-10; Start at 07:30 Docusate Sodium (Colace) 100 mg Q12H PRN PO CONSTIPATION; Start 05/04/16 at 07 :30 Magnesium Hydroxide (Milk Of Mag) 30 ml DAILY PRN PO CONSTIPATION; Start 05/04 at 07:30 Sodium Biphosphate/ Sodium Phosphate (Fleet Enema) 133 ml DAILY PRN [place] CONSTIPATION; Start 05/04/16 at 07:30 Ondansetron HCl (Zofran Inj) 4 mg Q6H PRN IV NAUSEA AND/OR VOMITING; Start at 07:30 Lorazepam (Ativan) 0.5 mg Q6H PRN IV ANXIETY; Start 05/04/16 at 07:30 Hydralazine HCl (Apresoline) 10 mg Q6H PRN IV ELEVATED BLOOD PRESSURE; Start 05/04/16 at 07:30 Nitroglycerin (Nitroglycerin (Sl Tab) 0.4 Mg) 1 tab Q5M PRN SL ANGINA; Start 05/04/16 at 07:30 Insulin Aspart (Novolog Insulin Pen) NOVOLOG *MILD* ALGORI... Q4 SC Last administered on 05/05/16 12:07; Admin Dose 3 UNIT; Start 05/04/16 at 09:00 Acetaminophen (Tylenol Supp) 650 mg Q4 PRN [place] PAIN OR TEMP ABOVE 38C; Start at 07:30 Ascorbic Acid (Vitamin C) 500 mg DAILY PO Last administered on 05/05/16at 09:24 ; Admin Dose 500 MG; Start 05/04/16 at 09:00 Atorvastatin Calcium (Lipitor) 20 mg QHS GTB Last administered on 05/04/16at 21 :25; Admin Dose 20 MG; Start 05/04/16 at 21:00 Bisacodyl (Dulcolax Supp) 10 mg Q24H PRN [place] CONSTIPATION; Start 05/04/16 at 07 :30 Clonidine (Catapres) 0.1 mg Q6 PO Last administered on 05/04/16 17:01; Admin Dose 0.1 MG; Start 05/04/16 at 12:00 Famotidine (Pepcid) 20 mg DAILY PO Last administered on 05/05/16at 09:26; Admin Dose 20 MG; Start 05/04/16 at 09:00 Hydralazine HCl (Apresoline) 25 mg Q6 PO Last administered on 05/04/16 17:01 ; Admin Dose 25 MG; Start 05/04/16 at 12:00 Levetiracetam (Keppra Liquid) 1,000 mg Q12 GTB Last administered on 05/05/16 09:24; Admin Dose 1,000 MG; Start 05/04/16 at 09:00 Senna (Senokot) 2 tab DAILY GTB Last administered on 05/04/16at 09:52; Admin Dose 2 TAB; Start 05/04/16 at 09:00 Multivitamins 5 ml 5 ml DAILY GTB Last administered on 05/05/16 09:24; Admin Dose 5 ML; Start 05/04/16 at 09:00 Dextrose (D5W) 1,000 ml @ 100 mls/hr Q10H IV Last administered on 05/05/16at 12:01; Admin Dose 100 MLS/HR; Start 05/04/16 at 07:30 Miscellaneous Information 1 ea NOTE XX ; Start 05/04/16 at 09:00 Glucose (Glutose) 15 gm Q15M PRN PO DECREASED GLUCOSE; Start 05/04/16 at 09:00 Glucose (Glutose) 22.5 gm Q15M PRN PO DECREASED GLUCOSE; Start 05/04/16 at 09: 00 Dextrose (D50w Syringe) 25 ml Q15M PRN IV DECREASED GLUCOSE; Start 05/04/16 at 09:00 Dextrose (D50w Syringe) 50 ml Q15M PRN IV DECREASED GLUCOSE; Start 05/04/16 at 09:00 Glucagon (Glucagen) 1 mg Q15M PRN IM DECREASED GLUCOSE; Start 05/04/16 at 09: 00 Glucose (Glutose) 15 gm Q15M PRN BUCCAL DECREASED GLUCOSE; Start 05/04/16 at 09:00 Acetaminophen (Tylenol Liquid) 650 mg Q6H PRN GTB PAIN LEVEL 1-3 OR FEVER Last administered on 05/05/16at 09:24; Admin Dose 650 MG; Start 05/04/16 at 18:30 Enoxaparin Sodium (Lovenox) 90 mg Q24H SC Last administered on 05/05/16at 09:26 ; Admin Dose 90 MG; Start 05/05/16 at 10:00 Influenza Virus Vaccine (Fluzone) 0.5 ml ONCE ONCE IM* ; Start 05/08/16 at 11: 00; Stop 05/08/16 at 11:01 Voriconazole (Vfend) 200 mg BID PO Last administered on 05/05/16at 13:06; Admin Dose 200 MG; Start 05/05/16 at 12:00 Vancomycin HCl (Vancomycin Oral Syringe) 250 mg Q6 PO ; Start 05/05/16 at 12:00 AMY HANKINS MD May 05, 2016 13:59
[2016-05-05] MEDS: VANCOMYCIN HCL 250 MG/5ML POSYG PO SCH ×2 (14:00→17:57)
[2016-05-05] MEDS ORDERED: PHENYLephrine 20MG IN 250 ML 250 ML ONE (14:04)
--- NOTE | 2016-05-05 14:44 | PN ---
DATE: 05/05/2016 SUBJECTIVE: The patient is lying comfortably in bed, spiked fever of 101.4. She is nonverbal, nonc ommunicative. INDWELLINGS: Trach, PEG, [place]. MICROBIOLOGY: Urine culture grew yeast. Blood culture have been negative. Stool for C. difficile came back positive for MRSA. ANTIMICROBIALS: Antibiotics were changed to: 1. Oral voriconazole. 2. Oral vancomycin. PHYSICAL EXAMINATION: GENERAL: Chronically ill-appearing, middle-aged woman who is in no distress. HEENT: Head atraumatic, normocephalic. Sclerae anicteric. Buccal mucosa dry. NECK: Supple. Tracheostomy present. CHEST: Rise symmetrical. Breath sounds diminished at bases. HEART: S1, S2. ABDOMEN: Soft. Bowel sounds present. EXTREMITIES: Without cyanosis. ASSESSMENT: 1. Sepsis. 2. Clostridium difficile colitis. 3. Fungal urinary tract infection. 4. Chronic respiratory failure. 5. History of infected ventriculoperitoneal shunt removal, with placement of new one. 6. History of methicillin-resistant Staphylococcus aureus intra-abdominal abscesses drainage. 7. Chronic encephalopathy. 8. Sacral decubitus. PLAN: The patient remains stable. Started on voriconazole and oral vancomycin this morning. Her ch est x-ray revealed no infiltrates. We will continue her on current regimen. Dictated By: DUTCH STEELE ADVOCACY DIRECTOR for PAT ALMONTE/RAMIRO Conf#: [id number] DID#: [id number]
[2016-05-05] MEDS: metroNIDAZOLE 500 MG TAB GTB SCH ×2 (14:57→21:37)
[2016-05-05] MEDS: PHENYLephrine 40 MG in DEXTROSE 5% 496 ML IV SCH (16:41)
[2016-05-05] MEDS: ATORVASTATIN 20 MG TAB GTB SCH (21:37)
[2016-05-05] MEDS: LORAZEPAM 2 MG INJ IV PRN (23:34)
[2016-05-06] VITALS (103 sets, daily range): BP systolic 78–142; BP diastolic 26–107; PULSE 62–103; RESP 16–37
[2016-05-06] MEDS: DEXTROSE 5% 1,000 ML IV SCH ×2 (00:06→09:36)
[2016-05-06] MEDS: VANCOMYCIN HCL 250 MG/5ML POSYG PO SCH ×4 (00:52→17:57)
[2016-05-06] MEDS: INSULIN ASPART [NOVOLOG] 3 ML PEN SC SCH ×6 (00:58→21:51)
[2016-05-06] MEDS: PHENYLephrine 40 MG in DEXTROSE 5% 496 ML IV SCH ×2 (03:07→21:52)
[2016-05-06 05:09] LABS: BASOPHILS % 0.1 % (0.0-2.0); EOSINOPHILS # 0.3 10^3/ul (0.0-0.5); EOSINOPHILS % 1.1 % (0.0-7.0); HEMATOCRIT 27.3 % (37.0-47.0); LYMPHOCYTES # 1.6 10^3/ul (0.8-2.9); LYMPHOCYTES % 6.5 % (15.0-51.0); MEAN CORPUSCULAR HEMOGLOBIN 29.9 pg (29.0-33.0); MEAN CORPUSCULAR HGB CONC 33.1 g/dl (32.0-37.0); MEAN CORPUSCULAR VOLUME 90.1 fl (82.0-101.0); MEAN PLATELET VOLUME 9.6 fl (7.4-10.4); MONOCYTE # 1.2 10^3/ul (0.3-0.9); MONOCYTES % 5.1 % (0.0-11.0); NEUTROPHIL # 21.1 10^3/ul (1.6-7.5); NEUTROPHILS % 87.2 % (39.0-77.0); PLATELET COUNT 354 10^3/UL (140-440); RED BLOOD COUNT 3.03 10^6/ul (4.20-5.40); RED CELL DISTRIBUTION WIDTH 15.8 % (11.5-14.5); UNCORRECTED WBC 24.2 10^3/ul (4.8-10.8); WHITE BLOOD COUNT 24.2 10^3/ul (4.8-10.8)
[2016-05-06 05:19] LABS: CONDITION 1; LH ANALYZER COMMENTS 1; SUSPECT 1
[2016-05-06] MEDS: metroNIDAZOLE 500 MG TAB GTB SCH ×3 (05:38→21:32)
[2016-05-06 05:46] LABS: CREATININE 3.09 mg/dl (0.44-1.00)
[2016-05-06 05:47] LABS: CALCIUM 7.3 mg/dl (8.4-10.2)
[2016-05-06 06:03] LABS: POTASSIUM 2.8 mmol/L (3.5-5.1)
[2016-05-06] MEDS: SENNA TAB GTB SCH (09:00)
[2016-05-06] MEDS ORDERED: POTASSIUM CHLORIDE 250 ML IVPB ONE (09:00)
[2016-05-06] MEDS: LEVETIRACETAM (100 MG/ML) 5ML CUP GTB SCH ×2 (09:35→21:32)
[2016-05-06] MEDS: MULTIVITAMINS 5 ML CUP GTB SCH (09:35)
[2016-05-06] MEDS: FAMOTIDINE 20 MG TAB PO SCH (09:35)
[2016-05-06] MEDS: VORICONAZOLE 200 MG TAB PO SCH ×2 (09:35→21:32)
[2016-05-06] MEDS: ASCORBIC ACID 500 MG TAB PO SCH (09:35)
[2016-05-06] MEDS: ENOXAPARIN 100 MG/ML SYG SC SCH (09:38)
--- NOTE | 2016-05-06 10:42 | PN ---
Date/Time of Note Date/Time of Note DATE: 05/06/16 TIME: 10:37 Assessment/Plan VTE Prophylaxis VTE Prophylaxis Intervention: LMWH Lines/Catheters IV Catheter Type (from Nrs): Mid Line Central line still needed: Yes Urinary Cath still in place: Yes Reason Cath still needed: other (indicate) Assessment/Plan Chief Complaint/Hosp Course ASSESSMENT AND PLAN: 1. Sepsis, likely secondary to urinary tract infection versus sacral decubitus. The patient has been started on Zosyn and vancomycin. Infectious disease consulted. We'll continue monitor patient blood pressure, if patient blood pressure started to decline we will transfer the patient to ICU 2. Ventilator-dependent respiratory failure, status post trach. Pulmonology has been consulted. 3. Acute renal insufficiency, likely secondary to sepsis versus dehydration. nephrology consulted. Continue IV fluids. 4. Diabetes mellitus. Continue sliding scale and Lantus. 5. History of cerebrovascular accident. No acute issues at this time. Patient is bed bound and a phasic 6. Dyslipidemia. Continue Lipitor. 7. Acute on chronic respiratory failure, vent-dependent, stable at this time, the patient's oxygen saturation is stable. 8. Essential Hypertension, at this time patient blood pressure is found to be hypotensive therefore we will hold all blood pressure medications 9. C. difficile toxin, continue Flagyl We will continue monitor patient closely for recommendation management treatment as per clinical course Problems: Subjective 24 Hr Interval Summary Free Text/Dictation Patient has been transferred to ICU secondary to hypotension Has been started on pressor Vent dependent Exam/Review of Systems Vital Signs Vitals Vital Signs Date Time Temp Pulse Resp B/P Pulse Ox O2 Delivery O2 Flow Rate FiO2 05/06/16 09:00 82 28 126/70 100 Mechanical Ventilator 05/06/16 08:00 99.1 05/06/16 07:30 40 Intake and Output 05/05/16 05/05/16 05/06/16 15:00 23:00 07:00 Intake Total 300 ml 1067.50 ml 864.75 ml Output Total 550 ml 485 ml 510 ml Balance -250 ml 582.50 ml 354.75 ml Exam General: The patient is a phasic, on vent via trach, does not respond to any pain or verbal stimuli HEENT: Atraumatic, normocephalic. The pupils are equal Neck: Supple , trach in place Chest: Normal Lungs: Decreased breath sounds bilateral lower lung field, positive crackles Heart: Normal S1-S2, Regular rhythm and rate. Abdomen: Soft , nontender, nondistended , bowel sounds are present. PEG tube in place Extremities: Flaccid, + 2 edema no cyanosis Neurologic: No meaningful neurologic examination findings Skin: Stage IV sacral decubitus Results Result Diagram: 05/06/16 0445 05/06/16 0445 Results 24 hrs Laboratory Tests Test 05/05/16 11:59 05/05/16 13:05 05/05/16 17:12 05/05/16 17:15 Bedside Glucose 223 H 233 H Lactic Acid Level 3.3 H 2.2 Test 05/05/16 21:36 05/06/16 00:54 05/06/16 04:45 05/06/16 05:36 Bedside Glucose 281 H 343 H 352 H Anion Gap 22 H Basophils # 0.0 Basophils % 0.1 Blood Morphology Comment Blood Urea Nitrogen 83 H Calcium Level 7.3 L Carbon Dioxide Level 10 L Chloride Level 116 H Creatinine 3.09 H Eosinophils # 0.3 Eosinophils % 1.1 Glucose Level 298 #H Hematocrit 27.3 L Hemoglobin 9.0 L Lymphocytes # 1.6 Lymphocytes % 6.5 L Mean Corpuscular Hemoglobin 29.9 Mean Corpuscular Hemoglobin Concent 33.1 Mean Corpuscular Volume 90.1 Mean Platelet Volume 9.6 Monocytes # 1.2 H Monocytes % 5.1 Neutrophils # 21.1 H Neutrophils % 87.2 H Nucleated Red Blood Cells # 0.0 Nucleated Red Blood Cells % 0.0 Platelet Count 354 # Potassium Level 2.8 *L Red Blood Count 3.03 L Red Cell Distribution Width 15.8 H Sodium Level 145 H White Blood Count 24.2 #H Test 05/06/16 09:38 Bedside Glucose 341 H Medications Medications Current Medications Acetaminophen/ Hydrocodone Bitart ([place] (5/325)) 1 tab Q6H PRN PO MODERATE PAIN LEVEL 4-6; Start 05/04/16 at 07:30 Morphine Sulfate (morphine) 2 mg Q4H PRN IV SEVERE PAIN LEVEL 7-10; Start at 07:30 Docusate Sodium (Colace) 100 mg Q12H PRN PO CONSTIPATION; Start 05/04/16 at 07 :30 Magnesium Hydroxide (Milk Of Mag) 30 ml DAILY PRN PO CONSTIPATION; Start 05/04 at 07:30 Sodium Biphosphate/ Sodium Phosphate (Fleet Enema) 133 ml DAILY PRN MD CONSTIPATION; Start 05/04/16 at 07:30 Ondansetron HCl (Zofran Inj) 4 mg Q6H PRN IV NAUSEA AND/OR VOMITING Last administered on 05/05/16at 17:56; Admin Dose 4 MG; Start 05/04/16 at 07:30 Lorazepam (Ativan) 0.5 mg Q6H PRN IV ANXIETY Last administered on 05/05/16at 23 :34; Admin Dose 0.5 MG; Start 05/04/16 at 07:30 Hydralazine HCl (Apresoline) 10 mg Q6H PRN IV ELEVATED BLOOD PRESSURE; Start 05/04/16 at 07:30 Nitroglycerin (Nitroglycerin (Sl Tab) 0.4 Mg) 1 tab Q5M PRN SL ANGINA; Start 05/04/16 at 07:30 Insulin Aspart (Novolog Insulin Pen) NOVOLOG *MILD* ALGORI... Q4 SC Last administered on 05/06/16at 09:39; Admin Dose 5 UNIT; Start 05/04/16 at 09:00 Acetaminophen (Tylenol Supp) 650 mg Q4 PRN [place] PAIN OR TEMP ABOVE 38C; Start at 07:30 Ascorbic Acid (Vitamin C) 500 mg DAILY PO Last administered on 05/06/16at 09:35 ; Admin Dose 500 MG; Start 05/04/16 at 09:00 Atorvastatin Calcium (Lipitor) 20 mg QHS GTB Last administered on 05/05/16at 21 :37; Admin Dose 20 MG; Start 05/04/16 at 21:00 Bisacodyl (Dulcolax Supp) 10 mg Q24H PRN MD CONSTIPATION; Start 05/04/16 at 07 :30 Clonidine (Catapres) 0.1 mg Q6 PO Last administered on 05/04/16at 17:01; Admin Dose 0.1 MG; Start 05/04/16 at 12:00 Famotidine (Pepcid) 20 mg DAILY PO Last administered on 05/06/16at 09:35; Admin Dose 20 MG; Start 05/04/16 at 09:00 Hydralazine HCl (Apresoline) 25 mg Q6 PO Last administered on 05/04/16at 17:01 ; Admin Dose 25 MG; Start 05/04/16 at 12:00 Levetiracetam (Keppra Liquid) 1,000 mg Q12 GTB Last administered on 05/06/16at 09:35; Admin Dose 1,000 MG; Start 05/04/16 at 09:00 Senna (Senokot) 2 tab DAILY GTB Last administered on 05/04/16at 09:52; Admin Dose 2 TAB; Start 05/04/16 at 09:00 Multivitamins 5 ml 5 ml DAILY GTB Last administered on 05/06/16at 09:35; Admin Dose 5 ML; Start 05/04/16 at 09:00 Dextrose (D5W) 1,000 ml @ 100 mls/hr Q10H IV Last administered on 05/06/16at 09:36; Admin Dose 100 MLS/HR; Start 05/04/16 at 07:30 Miscellaneous Information 1 ea NOTE XX ; Start 05/04/16 at 09:00 Glucose (Glutose) 15 gm Q15M PRN PO DECREASED GLUCOSE; Start 05/04/16 at 09:00 Glucose (Glutose) 22.5 gm Q15M PRN PO DECREASED GLUCOSE; Start 05/04/16 at 09: 00 Dextrose (D50w Syringe) 25 ml Q15M PRN IV DECREASED GLUCOSE; Start 05/04/16 at 09:00 Dextrose (D50w Syringe) 50 ml Q15M PRN IV DECREASED GLUCOSE; Start 05/04/16 at 09:00 Glucagon (Glucagen) 1 mg Q15M PRN IM DECREASED GLUCOSE; Start 05/04/16 at 09: 00 Glucose (Glutose) 15 gm Q15M PRN BUCCAL DECREASED GLUCOSE; Start 05/04/16 at 09:00 Acetaminophen (Tylenol Liquid) 650 mg Q6H PRN GTB PAIN LEVEL 1-3 OR FEVER Last administered on 05/05/16at 21:37; Admin Dose 650 MG; Start 05/04/16 at 18:30 Enoxaparin Sodium (Lovenox) 90 mg Q24H SC Last administered on 05/06/16at 09:38 ; Admin Dose 90 MG; Start 05/05/16 at 10:00 Influenza Virus Vaccine (Fluzone) 0.5 ml ONCE ONCE IM* ; Start 12/17/16 at 11: 00; Stop 05/08/16 at 11:01 Voriconazole (Vfend) 200 mg BID PO Last administered on 05/06/16at 09:35; Admin Dose 200 MG; Start 05/05/16 at 12:00 Vancomycin HCl (Vancomycin Oral Syringe) 250 mg Q6 PO Last administered on at 05:38; Admin Dose 250 MG; Start 05/05/16 at 12:00 Metronidazole 500 mg 500 mg Q8 GTB Last administered on 05/06/16at 05:38; Admin Dose 500 MG; Start 05/05/16 at 14:00 Phenylephrine HCl 40 mg/Dextrose 500 ml @ 75 mls/hr TITRATE IV Last administered on 05/06/16at 03:07; Admin Dose 37.5 MLS/HR; Start 05/05/16 at 15: 00 Potassium Chloride (KCl 40 MEQ/250 ML NS) 250 ml @ 62.5 mls/hr ONCE ONCE IVPB Last administered on 05/06/16at 09:35; Admin Dose 62.5 MLS/HR; Start at 09:00; Stop 05/06/16 at 12:59 AMY HANKINS MD May 06, 2016 10:42
--- NOTE | 2016-05-06 12:59 | CONS ---
Date/Time of Note Date/Time of Note DATE: 05/06/16 TIME: 12:57 Assessment/Plan Assessment/Plan Chief Complaint/Hosp Course IMPRESSION: 1. Patient has [id number] kidney disease. 2. Acute renal failure due to dehydration. 3. Underlying acute tubular necrosis due to sepsis. 4. Severe sepsis. 5. hypernatremia. 6. Free water deficit. 7. Hypokalemia. 8. Lactic acidosis. 9. Normal alkaline phosphatase. 10. Anemia. 11. History of tracheostomy. PLAN KCL CK LABS Problems: Consultation Date/Type/Reason Admit Date/Time May 04, 2016 at 05:51 Type of Consultation: [id number] 24 HR Interval Summary Subjective hx not possible: pt non-verbal Exam/Review of Systems Vital Signs Vitals Vital Signs Date Time Temp Pulse Resp B/P Pulse Ox O2 Delivery O2 Flow Rate FiO2 05/06/16 11:30 93 27 106/71 100 Mechanical Ventilator 05/06/16 11:09 40 05/06/16 08:00 99.1 Intake and Output 05/05/16 05/05/16 05/06/16 15:00 23:00 07:00 Intake Total 300 ml 1067.50 ml 864.75 ml Output Total 550 ml 485 ml 540 ml Balance -250 ml 582.50 ml 324.75 ml Exam Neck: supple Respiratory: diminished breath sounds Cardiovascular: regular rate and rhythm Gastrointestinal: bowel sounds (+), soft Extremities: No edema Results Result Diagram: 05/06/16 0445 05/06/16 0445 Results 24 hrs Laboratory Tests Test 05/05/16 13:05 05/05/16 17:12 05/05/16 17:15 05/05/16 21:36 Lactic Acid Level 3.3 H 2.2 Bedside Glucose 233 H 281 H Test 05/06/16 00:54 05/06/16 04:45 05/06/16 05:36 05/06/16 09:38 Bedside Glucose 343 H 352 H 341 H Anion Gap 22 H Basophils # 0.0 Basophils % 0.1 Blood Morphology Comment Blood Urea Nitrogen 83 H Calcium Level 7.3 L Carbon Dioxide Level 10 L Chloride Level 116 H Creatinine 3.09 H Eosinophils # 0.3 Eosinophils % 1.1 Glucose Level 298 #H Hematocrit 27.3 L Hemoglobin 9.0 L Lymphocytes # 1.6 Lymphocytes % 6.5 L Mean Corpuscular Hemoglobin 29.9 Mean Corpuscular Hemoglobin Concent 33.1 Mean Corpuscular Volume 90.1 Mean Platelet Volume 9.6 Monocytes # 1.2 H Monocytes % 5.1 Neutrophils # 21.1 H Neutrophils % 87.2 H Nucleated Red Blood Cells # 0.0 Nucleated Red Blood Cells % 0.0 Platelet Count 354 # Potassium Level 2.8 *L Red Blood Count 3.03 L Red Cell Distribution Width 15.8 H Sodium Level 145 H White Blood Count 24.2 #H Medications Medications Current Medications Acetaminophen/ Hydrocodone Bitart ([place] (5/325)) 1 tab Q6H PRN PO MODERATE PAIN LEVEL 4-6; Start 05/04/16 at 07:30 Morphine Sulfate (morphine) 2 mg Q4H PRN IV SEVERE PAIN LEVEL 7-10; Start at 07:30 Docusate Sodium (Colace) 100 mg Q12H PRN PO CONSTIPATION; Start 05/04/16 at 07 :30 Magnesium Hydroxide (Milk Of Mag) 30 ml DAILY PRN PO CONSTIPATION; Start 05/04 at 07:30 Ondansetron HCl (Zofran Inj) 4 mg Q6H PRN IV NAUSEA AND/OR VOMITING Last administered on 05/05/16at 17:56; Admin Dose 4 MG; Start 05/04/16 at 07:30 Lorazepam (Ativan) 0.5 mg Q6H PRN IV ANXIETY Last administered on 05/05/16at 23 :34; Admin Dose 0.5 MG; Start 05/04/16 at 07:30 Hydralazine HCl (Apresoline) 10 mg Q6H PRN IV ELEVATED BLOOD PRESSURE; Start 05/04/16 at 07:30 Nitroglycerin (Nitroglycerin (Sl Tab) 0.4 Mg) 1 tab Q5M PRN SL ANGINA; Start 05/04/16 at 07:30 Insulin Aspart (Novolog Insulin Pen) NOVOLOG *MILD* ALGORI... Q4 SC Last administered on 05/06/16at 12:53; Admin Dose 3 UNIT; Start 05/04/16 at 09:00 Acetaminophen (Tylenol Supp) 650 mg Q4 PRN [place] PAIN OR TEMP ABOVE 38C; Start at 07:30 Ascorbic Acid (Vitamin C) 500 mg DAILY PO Last administered on 05/06/16 09:35 ; Admin Dose 500 MG; Start 05/04/16 at 09:00 Atorvastatin Calcium (Lipitor) 20 mg QHS GTB Last administered on 05/05/16at 21 :37; Admin Dose 20 MG; Start 05/04/16 at 21:00 Bisacodyl (Dulcolax Supp) 10 mg Q24H PRN CO CONSTIPATION; Start 05/04/16 at 07 :30 Clonidine (Catapres) 0.1 mg Q6 PO Last administered on 05/04/16at 17:01; Admin Dose 0.1 MG; Start 05/04/16 at 12:00 Famotidine (Pepcid) 20 mg DAILY PO Last administered on 05/06/16 09:35; Admin Dose 20 MG; Start 05/04/16 at 09:00 Hydralazine HCl (Apresoline) 25 mg Q6 PO Last administered on 05/04/16 17:01 ; Admin Dose 25 MG; Start 05/04/16 at 12:00 Levetiracetam (Keppra Liquid) 1,000 mg Q12 GTB Last administered on 05/06/16at 09:35; Admin Dose 1,000 MG; Start 05/04/16 at 09:00 Senna (Senokot) 2 tab DAILY GTB Last administered on 05/04/16 09:52; Admin Dose 2 TAB; Start 05/04/16 at 09:00 Multivitamins 5 ml 5 ml DAILY GTB Last administered on 05/06/16at 09:35; Admin Dose 5 ML; Start 05/04/16 at 09:00 Dextrose (D5W) 1,000 ml @ 100 mls/hr Q10H IV Last administered on 05/06/16at 09:36; Admin Dose 100 MLS/HR; Start 05/04/16 at 07:30 Miscellaneous Information 1 ea NOTE XX ; Start 05/04/16 at 09:00 Glucose (Glutose) 15 gm Q15M PRN PO DECREASED GLUCOSE; Start 05/04/16 at 09:00 Glucose (Glutose) 22.5 gm Q15M PRN PO DECREASED GLUCOSE; Start 05/04/16 at 09: 00 Dextrose (D50w Syringe) 25 ml Q15M PRN IV DECREASED GLUCOSE; Start 05/04/16 at 09:00 Dextrose (D50w Syringe) 50 ml Q15M PRN IV DECREASED GLUCOSE; Start 05/04/16 at 09:00 Glucagon (Glucagen) 1 mg Q15M PRN IM DECREASED GLUCOSE; Start 05/04/16 at 09: 00 Glucose (Glutose) 15 gm Q15M PRN BUCCAL DECREASED GLUCOSE; Start 05/04/16 at 09:00 Acetaminophen (Tylenol Liquid) 650 mg Q6H PRN GTB PAIN LEVEL 1-3 OR FEVER Last administered on 05/05/16at 21:37; Admin Dose 650 MG; Start 05/04/16 at 18:30 Enoxaparin Sodium (Lovenox) 90 mg Q24H SC Last administered on 05/06/16 09:38 ; Admin Dose 90 MG; Start 05/05/16 at 10:00 Influenza Virus Vaccine (Fluzone) 0.5 ml ONCE ONCE IM* ; Start 05/08/16 at 11: 00; Stop 05/08/16 at 11:01 Voriconazole (Vfend) 200 mg BID PO Last administered on 05/06/16at 09:35; Admin Dose 200 MG; Start 05/05/16 at 12:00 Vancomycin HCl (Vancomycin Oral Syringe) 250 mg Q6 PO Last administered on 12:52; Admin Dose 250 MG; Start 05/05/16 at 12:00 Metronidazole 500 mg 500 mg Q8 GTB Last administered on 05/06/16at 12:54; Admin Dose 500 MG; Start 05/05/16 at 14:00 Phenylephrine HCl 40 mg/Dextrose 500 ml @ 75 mls/hr TITRATE IV Last administered on 05/06/16at 03:07; Admin Dose 37.5 MLS/HR; Start 05/05/16 at 15: 00 Potassium Chloride (KCl 40 MEQ/250 ML NS) 250 ml @ 62.5 mls/hr ONCE ONCE IVPB Last administered on 05/06/16at 09:35; Admin Dose 62.5 MLS/HR; Start at 09:00; Stop 05/06/16 at 12:59 Insulin Glargine (Lantus) 5 unit QPM SC ; Start 05/06/16 at 21:00 AMBER LIEBERMAN MD May 06, 2016 12:59
--- NOTE | 2016-05-06 13:49 | CONS ---
DATE OF ADMISSION: 05/04/2016 DATE OF CONSULTATION: 05/06/2016 TYPE OF CONSULTATION: Pulmonary. REASON FOR CONSULTATION: Respiratory failure. HISTORY OF PRESENT ILLNESS: This is an unfortunate 46-year-old lady with history of hemorrhagic CVA , encephalopathy, vent-dependent respiratory failure, history of hydrocephalus with DIRECTOR PHARMACEUTICAL sh[facility] for low blood pressure and sepsis. The patient is nonverbal, brien ble to give me further details. MEDICATIONS: Per chart. ALLERGIES: NONE. SOCIAL HISTORY: Ex-smoker, no alcohol, no history of drug use. FAMILY HISTORY: Noncontributory. SYSTEMS REVIEW: A 12-point review of systems unable to perform. PHYSICAL EXAMINATION: GENERAL: Chronically ill appearing lady on mechanical ventilation, appears comfortable at rest on l ow dose vasopressor support. VITAL SIGNS: Temperature 98, pulse is 82, blood pressure 126/70, O2 saturation 96%, FIO2 of 40%. NECK: Supple. No JVD or lymphadenopathy. HEENT: Trach site clean and intact. CARDIAC: S1, S2, no added sounds or murmurs. CHEST: Diminished air entry bilaterally. ABDOMEN: Soft, nontender. No guarding or rebound. EXTREMITIES: No cyanosis, clubbing, edema. NEUROLOGIC: Unable to assess. LABORATORY DATA: White count 24.2, hemoglobin 9.0, platelets of 354. BUN 83, creatinine 3.09, INR 1.26. ABG: pH 7.45, pCO2 17, pO2 of 195, bicarbonate was 12.9. DIAGNOSTIC DATA: Chest x-ray was reviewed, shows clear, no infiltrates or effusions. IMPRESSION AND PLAN: 1. Septic shock, likely secondary to urinary tract infection. 2. Chronic encephalopathy. 3. History of hemorrhagic cerebrovascular accident. 4. Vent dependent respiratory failure. 5. Severe metabolic acidosis. The patient will need: 1. Continued vasopressor support. 2. Aggressive volume resuscitation. 3. Broad spectrum antibiotics. 4. Deep venous thrombosis and gastrointestinal prophylaxis. Overall prognosis is guarded. Dictated By: JIMMY MOLINA/RAMIRO Conf#: [id number] DID#: [id number]
[2016-05-06 14:35] LABS: Allen Test ACCEPTAB; MODE VENT - AC
[2016-05-06 14:51] LABS: AADO2 Arterial 76.8 mmHg (7.0-24.0); Allen Test ACCEPTAB; Arterial Base Excess -14.3 mmol/L (-3.0-3); Arterial COHb 0.2 % (0.0-3.0); Arterial Fraction of Oxyhgb 98.1 % (93.0-99.0); Arterial HCO3 8.7 mmol/L (22.0-26.0); Arterial MetHb 0.4 % (0.0-1.5); Arterial Total Hemglobin 10.2 g/dl (12.0-18.0); MODE VENT - AC
[2016-05-06] MEDS: LINEZOLID 600 MG/D5W (PMX) 300 ML IVPB SCH (15:52)
[2016-05-06] MEDS: MEROPENEM 500 MG in SOD CHLORIDE 0.9% 100 ML IVPB SCH ×2 (15:52→23:49)
[2016-05-06] MEDS ORDERED: COLLAGENASE 30 GM TUBE TOP PRN (16:00)
[2016-05-06] MEDS: COLLAGENASE 30 GM TUBE TOP SCH (16:30)
--- NOTE | 2016-05-06 17:08 | PN ---
DATE: 05/06/2016 SUBJECTIVE: Patient was transferred to ICU secondary to symptomatic hypotension now on pressors lyi ng comfortably in bed. She spiked fever of 101.2 last night, currently afebrile. VITAL SIGNS: Temperature 99, pulse 90, respirations 23, blood pressure 100/61, saturation 100 on ve nt. WBC today 24.2, H and H 9 and 27.3, platelets 354, neutrophils 87.2, BUN 83, creatinine 3.09. MICROBIOLOGY: Blood cultures remain negative. Urine culture growing Deyanira glabrata and Deyanira s pecies, not albicans. Stool for C. diff came back positive. INDWELLINGS: Trach, PEG, Reynolds. ANTIMICROBIALS: She is on Flagyl, oral vancomycin and Voriconazole PHYSICAL EXAMINATION: GENERAL: This is a chronically ill-appearing 46-year-old woman who is lying comfortably in bed. Patient is nonverbal, noncommunicative. HEENT: Head atraumatic, normocephalic. Sclerae anicteric. Buccal mucosa dry. NECK: Supple. Tracheostomy present. CHEST: Rise symmetrical. Breath sounds diminished to bases. HEART: S1, S2. ABDOMEN: Distended, soft. Bowel tones hypoactive. EXTREMITIES: Without cyanosis, wasted trace edema. SKIN: With unstageable sacral decubitus. ASSESSMENT: 1. Severe sepsis with shock. 2. Urinary tract infection. 3. Clostridium difficile colitis. 4. Unstageable sacral decubitus. 5. Chronic respiratory failure. 6. 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 7. Chronic encephalopathy. PLAN: We are going to start patient on Merrem and Zyvox for concern of infected sacral wound. Send wound cultures, follow on final cultures. Check her chest x-ray. Continue present care and consid er surgical evaluation for possible wound debridement. Dictated By: DUTCH STEELE [employer] PRODUCTION MANAGER for PAT ALMONTE/RAMIRO Conf#: [id number] DID#: [id number]
[2016-05-06] MEDS: SODIUM BICARBONATE (IV ADD) 150 MEQ in SOD CHLORIDE 0.45% 1,000 ML IV SCH (18:19)
[2016-05-06] MEDS ORDERED: INSULIN GLARGINE [LANtus] 3 ML PEN SC SCH (21:00)
[2016-05-06] MEDS: ATORVASTATIN 20 MG TAB GTB SCH (21:32)
[2016-05-06] MEDS: LORAZEPAM 2 MG INJ IV PRN (23:58)
[2016-05-07] VITALS (90 sets, daily range): BP systolic 82–142; BP diastolic 45–93; PULSE 79–109; RESP 16–37
[2016-05-07] MEDS: INSULIN ASPART [NOVOLOG] 3 ML PEN SC SCH ×6 (00:48→21:00)
[2016-05-07] MEDS: VANCOMYCIN HCL 250 MG/5ML POSYG PO SCH ×4 (00:48→18:27)
[2016-05-07] MEDS: LINEZOLID 600 MG/D5W (PMX) 300 ML IVPB SCH ×3 (00:48→20:54)
[2016-05-07 06:09] LABS: BASOPHILS % 0.1 % (0.0-2.0); EOSINOPHILS # 0.5 10^3/ul (0.0-0.5); EOSINOPHILS % 2.9 % (0.0-7.0); HEMATOCRIT 26.9 % (37.0-47.0); LYMPHOCYTES # 1.2 10^3/ul (0.8-2.9); LYMPHOCYTES % 6.7 % (15.0-51.0); MEAN CORPUSCULAR HEMOGLOBIN 29.5 pg (29.0-33.0); MEAN CORPUSCULAR HGB CONC 33.5 g/dl (32.0-37.0); MEAN CORPUSCULAR VOLUME 88.3 fl (82.0-101.0); MONOCYTE # 0.6 10^3/ul (0.3-0.9); MONOCYTES % 3.3 % (0.0-11.0); NEUTROPHIL # 15.5 10^3/ul (1.6-7.5); PLATELET COUNT 339 10^3/UL (140-440); RED BLOOD COUNT 3.05 10^6/ul (4.20-5.40); RED CELL DISTRIBUTION WIDTH 15.3 % (11.5-14.5); UNCORRECTED WBC 17.9 10^3/ul (4.8-10.8); WHITE BLOOD COUNT 17.9 10^3/ul (4.8-10.8)
[2016-05-07 06:17] LABS: CONDITION 1; LH ANALYZER COMMENTS 1; SUSPECT 1
[2016-05-07 06:25] LABS: CREATININE 2.69 mg/dl (0.44-1.00)
[2016-05-07 06:26] LABS: CALCIUM 7.4 mg/dl (8.4-10.2)
[2016-05-07 06:27] LABS: POTASSIUM 2.9 mmol/L (3.5-5.1)
--- NOTE | 2016-05-07 06:45 | RADRPT ---
PROCEDURE: XR Chest. CLINICAL INDICATION: Shortness of breath TECHNIQUE: Portable single view of the chest COMPARISON: 05/04 FINDINGS: Tracheostomy tube again overlies the airway. Ventriculoperitoneal shunt tubing is again seen on the left. Tubing overlying the medial right chest may be outside the patient. The appearance of the h eart lungs is unchanged without focal infiltrate. IMPRESSION: No significant interval change. No definite acute pulmonary disease. RPTAT: [facility] Physician Larry Date Time Electronically viewed and signed by Norma Bales Physician on 05/07/2016 06:45 LE/
[2016-05-07] MEDS: metroNIDAZOLE 500 MG TAB GTB SCH ×3 (06:51→22:17)
[2016-05-07] MEDS: SODIUM BICARBONATE (IV ADD) 150 MEQ in SOD CHLORIDE 0.45% 1,000 ML IV SCH ×2 (06:51→15:40)
[2016-05-07 07:46] LABS: AADO2 Arterial 67.6 mmHg (7.0-24.0); Arterial Base Excess -10.9 mmol/L (-3.0-3); Arterial COHb 0.3 % (0.0-3.0); Arterial Fraction of Oxyhgb 98.4 % (93.0-99.0); Arterial HCO3 11.1 mmol/L (22.0-26.0); Arterial MetHb 0.2 % (0.0-1.5); Arterial Total Hemglobin 8.7 g/dl (12.0-18.0)
[2016-05-07] MEDS: POTASSIUM CHLORIDE 250 ML IVPB SCH ×2 (08:00→12:00)
[2016-05-07] MEDS: COLLAGENASE 30 GM TUBE TOP SCH (09:00)
[2016-05-07] MEDS: SENNA TAB GTB SCH (09:00)
[2016-05-07] MEDS: LEVETIRACETAM (100 MG/ML) 5ML CUP GTB SCH ×2 (09:30→20:52)
[2016-05-07] MEDS: MULTIVITAMINS 5 ML CUP GTB SCH (09:30)
[2016-05-07] MEDS: MEROPENEM 500 MG in SOD CHLORIDE 0.9% 100 ML IVPB SCH ×2 (09:31→20:54)
[2016-05-07] MEDS: FAMOTIDINE 20 MG TAB PO SCH (09:31)
[2016-05-07] MEDS: VORICONAZOLE 200 MG TAB PO SCH ×2 (09:31→20:52)
[2016-05-07] MEDS: ASCORBIC ACID 500 MG TAB PO SCH (09:31)
--- NOTE | 2016-05-07 09:59 | PN ---
Date/Time of Note Date/Time of Note DATE: 05/07/16 TIME: 09:56 Assessment/Plan VTE Prophylaxis VTE Prophylaxis Intervention: SCD's Lines/Catheters IV Catheter Type (from Nrs): Mid Line Urinary Cath still in place: Yes Reason Cath still needed: other (indicate) Assessment/Plan Chief Complaint/Hosp Course ASSESSMENT AND PLAN: 1. Sepsis, likely secondary to urinary tract infection versus sacral decubitus. The patient has been started on Zosyn and vancomycin. Infectious disease consulted. We'll continue monitor patient blood pressure, continue pressors 2. Ventilator-dependent respiratory failure, status post trach. Pulmonology has been consulted. 3. Acute renal insufficiency, likely secondary to sepsis versus dehydration. nephrology consulted. Continue IV fluids. 4. Diabetes mellitus. Continue sliding scale and Lantus. 5. History of cerebrovascular accident. No acute issues at this time. Patient is bed bound and a phasic 6. Dyslipidemia. Continue Lipitor. 7. Acute on chronic respiratory failure, vent-dependent, stable at this time, the patient's oxygen saturation is stable. 8. Essential Hypertension, at this time patient blood pressure is found to be hypotensive therefore we will hold all blood pressure medications 9. C. difficile toxin, continue Flagyl 10. Hypokalemia, repleted We will continue monitor patient closely for recommendation management treatment as per clinical course Condition guarded Problems: Subjective 24 Hr Interval Summary Free Text/Dictation No acute changes Patient has been monitored in ICU Patient continues to be on pressors and vent Exam/Review of Systems Vital Signs Vitals Vital Signs Date Time Temp Pulse Resp B/P Pulse Ox O2 Delivery O2 Flow Rate FiO2 05/07/16 09:15 90 16 107/65 100 Mechanical Ventilator 05/07/16 08:00 98.8 05/07/16 05:24 40 Intake and Output 05/06/16 05/06/16 05/07/16 15:00 23:00 07:00 Intake Total 105 ml 1238.0 ml 1346.50 ml Output Total 335 ml 315 ml 215 ml Balance -230 ml 923.0 ml 1131.50 ml Exam General: The patient is a phasic, on vent via trach, does not respond to any pain or verbal stimuli HEENT: Atraumatic, normocephalic. The pupils are equal Neck: Supple , trach in place Chest: Normal Lungs: Decreased breath sounds bilateral lower lung field, positive crackles Heart: Normal S1-S2, Regular rhythm and rate. Abdomen: Soft , nontender, nondistended , bowel sounds are present. PEG tube in place Extremities: Flaccid, + 2 edema no cyanosis Neurologic: No meaningful neurologic examination findings Skin: Stage IV sacral decubitus Results Result Diagram: 05/07/16 0520 05/07/16 0520 Results 24 hrs Laboratory Tests Test 05/06/16 12:00 05/06/16 12:48 05/06/16 17:53 05/06/16 21:47 Arterial Blood HCO3 8.7 *L Arterial Blood Base Excess -14.3 L Arterial Blood Oxygen Saturation 98.7 H David Test ACCEPTAB Arterial Blood Gas Puncture Site Right Radial Arterial Blood Carboxyhemoglobin 0.2 Arterial Blood Date Drawn 05/06/2016 2:20:00 PM Arterial Blood Methemoglobin 0.4 Arterial Blood pCO2 (Temp correct) 15.2 L Arterial Blood pH (Temp corrected) 7.376 Arterial Blood pO2 (Temp corrected) 190.9 H Blood Gas A-a O2 Differential 76.8 H Blood Gas Actual Respiration Rate 36 Blood Gas Critical Value Read Back K FARLESS RN Blood Gas Low PEEP Setting 5.0 Blood Gas Modality VENT - AC Blood Gas Notified Time 05/06/2016 2:35:00 PM Blood Gas Notified Whom JLD Blood Gas Respiration Rate 14.0 Blood Gas Specimen Source Blood arterial Blood Gas Temperature 37.0 Blood Gas Tidal Volume 500.0 FiO2 40.0 Oxyhemoglobin Percent 98.1 Total Hemoglobin 10.2 L Bedside Glucose 277 H 241 H 245 H Test 05/07/16 00:44 05/07/16 05:20 05/07/16 06:48 05/07/16 07:00 Bedside Glucose 257 H 278 H Anion Gap 19 H Basophils # 0.0 Basophils % 0.1 Blood Morphology Comment Blood Urea Nitrogen 74 H Calcium Level 7.4 L Carbon Dioxide Level 12 L Chloride Level 116 H Creatinine 2.69 H Eosinophils # 0.5 Eosinophils % 2.9 Glucose Level 249 H Hematocrit 26.9 L Hemoglobin 9.0 L Lymphocytes # 1.2 Lymphocytes % 6.7 L Magnesium Level 1.9 Mean Corpuscular Hemoglobin 29.5 Mean Corpuscular Hemoglobin Concent 33.5 Mean Corpuscular Volume 88.3 Mean Platelet Volume 9.0 Monocytes # 0.6 Monocytes % 3.3 Neutrophils # 15.5 H Neutrophils % 87.0 H Nucleated Red Blood Cells # 0.0 Nucleated Red Blood Cells % 0.0 Platelet Count 339 Potassium Level 2.9 *L Red Blood Count 3.05 L Red Cell Distribution Width 15.3 H Sodium Level 144 White Blood Count 17.9 #H Arterial Blood HCO3 11.1 L Arterial Blood Base Excess -10.9 L Arterial Blood Oxygen Saturation 98.9 H David Test ACCEPTAB Arterial Blood Gas Puncture Site Right Radial Arterial Blood Carboxyhemoglobin 0.3 Arterial Blood Date Drawn 05/07/2016 7:20:00 AM Arterial Blood Methemoglobin 0.2 Arterial Blood pCO2 (Temp correct) 15.7 L Arterial Blood pH (Temp corrected) 7.467 H Arterial Blood pO2 (Temp corrected) 199.5 H Blood Gas A-a O2 Differential 67.6 H Blood Gas Actual Respiration Rate 33 Blood Gas Critical Value Read Back not critical Blood Gas Low PEEP Setting 5.0 Blood Gas Modality VENT - AC Blood Gas Notified Time 05/07/2016 7:46:00 AM Blood Gas Notified Whom JLD Blood Gas Respiration Rate 14.0 Blood Gas Specimen Source Blood arterial Blood Gas Temperature 37.0 Blood Gas Tidal Volume 500.0 FiO2 40.0 Oxyhemoglobin Percent 98.4 Total Hemoglobin 8.7 L Medications Medications Current Medications Acetaminophen/ Hydrocodone Bitart ([place] (5/325)) 1 tab Q6H PRN PO MODERATE PAIN LEVEL 4-6; Start 05/04/16 at 07:30 Morphine Sulfate (morphine) 2 mg Q4H PRN IV SEVERE PAIN LEVEL 7-10; Start at 07:30 Docusate Sodium (Colace) 100 mg Q12H PRN PO CONSTIPATION; Start 05/04/16 at 07 :30 Magnesium Hydroxide (Milk Of Mag) 30 ml DAILY PRN PO CONSTIPATION; Start 05/04 at 07:30 Ondansetron HCl (Zofran Inj) 4 mg Q6H PRN IV NAUSEA AND/OR VOMITING Last administered on 05/05/16at 17:56; Admin Dose 4 MG; Start 05/04/16 at 07:30 Lorazepam (Ativan) 0.5 mg Q6H PRN IV ANXIETY Last administered on 05/06/16at 23 :58; Admin Dose 0.5 MG; Start 05/04/16 at 07:30 Hydralazine HCl (Apresoline) 10 mg Q6H PRN IV ELEVATED BLOOD PRESSURE; Start 05/04/16 at 07:30 Nitroglycerin (Nitroglycerin (Sl Tab) 0.4 Mg) 1 tab Q5M PRN SL ANGINA; Start 05/04/16 at 07:30 Insulin Aspart (Novolog Insulin Pen) NOVOLOG *MILD* ALGORI... Q4 SC Last administered on 05/07/16at 06:50; Admin Dose 4 UNIT; Start 05/04/16 at 09:00 Acetaminophen (Tylenol Supp) 650 mg Q4 PRN [place] PAIN OR TEMP ABOVE 38C; Start at 07:30 Ascorbic Acid (Vitamin C) 500 mg DAILY PO Last administered on 05/07/16at 09:31 ; Admin Dose 500 MG; Start 05/04/16 at 09:00 Atorvastatin Calcium (Lipitor) 20 mg QHS GTB Last administered on 05/06/16at 21 :32; Admin Dose 20 MG; Start 05/04/16 at 21:00 Bisacodyl (Dulcolax Supp) 10 mg Q24H PRN NM CONSTIPATION; Start 05/04/16 at 07 :30 Clonidine (Catapres) 0.1 mg Q6 PO Last administered on 05/04/16at 17:01; Admin Dose 0.1 MG; Start 05/04/16 at 12:00 Famotidine (Pepcid) 20 mg DAILY PO Last administered on 05/07/16 09:31; Admin Dose 20 MG; Start 05/04/16 at 09:00 Hydralazine HCl (Apresoline) 25 mg Q6 PO Last administered on 05/04/16at 17:01 ; Admin Dose 25 MG; Start 05/04/16 at 12:00 Levetiracetam (Keppra Liquid) 1,000 mg Q12 GTB Last administered on 05/07/16 09:30; Admin Dose 1,000 MG; Start 05/04/16 at 09:00 Senna (Senokot) 2 tab DAILY GTB Last administered on 05/04/16 09:52; Admin Dose 2 TAB; Start 05/04/16 at 09:00 Multivitamins (Thera-Plus) 5 ml DAILY GTB Last administered on 05/07/16at 09:30 ; Admin Dose 5 ML; Start 05/04/16 at 09:00 Miscellaneous Information 1 ea NOTE XX ; Start 05/04/16 at 09:00 Glucose (Glutose) 15 gm Q15M PRN PO DECREASED GLUCOSE; Start 05/04/16 at 09:00 Glucose (Glutose) 22.5 gm Q15M PRN PO DECREASED GLUCOSE; Start 05/04/16 at 09: 00 Dextrose (D50w Syringe) 25 ml Q15M PRN IV DECREASED GLUCOSE; Start 05/04/16 at 09:00 Dextrose (D50w Syringe) 50 ml Q15M PRN IV DECREASED GLUCOSE; Start 05/04/16 at 09:00 Glucagon (Glucagen) 1 mg Q15M PRN IM DECREASED GLUCOSE; Start 05/04/16 at 09: 00 Glucose (Glutose) 15 gm Q15M PRN BUCCAL DECREASED GLUCOSE; Start 05/04/16 at 09:00 Acetaminophen (Tylenol Liquid) 650 mg Q6H PRN GTB PAIN LEVEL 1-3 OR FEVER Last administered on 05/05/16at 21:37; Admin Dose 650 MG; Start 05/04/16 at 18:30 Enoxaparin Sodium (Lovenox) 90 mg Q24H SC Last administered on 05/06/16at 09:38 ; Admin Dose 90 MG; Start 05/05/16 at 10:00 Influenza Virus Vaccine (Fluzone) 0.5 ml ONCE ONCE IM* ; Start 05/08/16 at 11: 00; Stop 05/08/16 at 11:01 Voriconazole (Vfend) 200 mg BID PO Last administered on 05/07/16at 09:31; Admin Dose 200 MG; Start 05/05/16 at 12:00 Vancomycin HCl (Vancomycin Oral Syringe) 250 mg Q6 PO Last administered on at 06:51; Admin Dose 250 MG; Start 05/05/16 at 12:00 Metronidazole 500 mg 500 mg Q8 GTB Last administered on 05/07/16at 06:51; Admin Dose 500 MG; Start 05/05/16 at 14:00 Phenylephrine HCl/ Dextrose (Oli-Synephrine/ D5W) 500 ml @ 75 mls/hr TITRATE IV Last administered on 05/06/16at 21:52; Admin Dose 16.5 MLS/HR; Start at 15:00 Insulin Glargine 5 unit 5 unit QPM SC Last administered on 05/06/16at 21:51; Admin Dose 5 UNIT; Start 05/06/16 at 21:00 Linezolid 300 ml @ 300 mls/hr Q12 IVPB Last administered on 05/07/16 09:31; Admin Dose 300 MLS/HR; Start 05/06/16 at 16:40 Meropenem 500 mg/ Sodium Chloride 100 ml @ 200 mls/hr Q12 IVPB Last administered on 05/07/16at 09:31; Admin Dose 200 MLS/HR; Start 05/06/16 at 15: 40 Sodium Bicarbonate/ Sodium Chloride (Na Bicarb/1/2 NS) 1,150 ml @ 100 mls/hr [id number] IV Last administered on 05/07/16at 06:51; Admin Dose 100 MLS/HR; Start 05/06/16 at 16:40 Collagenase (Santyl) APPLY TO NECROTIC TISSUE DAILY TOP Last administered on at 16:30; Admin Dose 1 APPLIC; Start 05/06/16 at 16:30 Collagenase APPLY TO NECROTIC AREA PRN PRN TOP SOILING; Start 05/06/16 at 16: 00 Potassium Chloride (KCl 40 MEQ/250 ML NS) 250 ml @ 62.5 mls/hr Q4H IVPB Last administered on 05/07/16at 08:00; Admin Dose 62.5 MLS/HR; Start 05/07/16 at 08: 00; Stop 05/07/16 at 15:59 AMY HANKINS MD May 07, 2016 09:59
--- NOTE | 2016-05-07 10:11 | CONS ---
DATE OF ADMISSION: 05/04/2016 DATE OF CONSULTATION: 05/07/2016 HISTORY OF PRESENT ILLNESS: Ms. Kenny is a 38-year-old female who is well known to me from prior h ospitalizations, has a history of hemorrhagic CVA, chronic encephalopathy secondary to the above. T he patient is trached, vented, chronically, lives in a subacute unit. Other comorbid medical proble ms including a history of hypertension and type 2 diabetes, previous infected CSF shunt and after a prolonged hospitalization was discharged to a subacute unit. I am asked to participate in conferenc e with patient's . During the last hospitalization he refused to speak to us about code stat us or goals of care in the future. At that time, the patient did not show up to some of the prior s cheduled conferences and therefore we did not push him on the issue of trying to change at least the code status, not the goals of care because he was very adamant about continuing to keep his darius landeros in spite of the fact that she would spend the rest of her life in a subacute unit. We understoo d this and therefore, once again we did not push him. However, the patient presented this time with a POLST form which says no aggressive intervention; however, in view of that the patient was sent t o the emergency room at [facility] with respiratory failure, hypotensive and clini kieran signs of septic shock. MEDICATIONS: Please refer to the reconciliation sheet. ALLERGIES: NO KNOWN DRUG ALLERGIES. MAJOR MEDICAL PROBLEMS: Include what is entirely per history of present illness. SOCIAL HISTORY: Lives in a subacute unit. FAMILY HISTORY: Noncontributory towards this hospitalization. REVIEW OF SYSTEMS: Cannot be obtained. PHYSICAL EXAMINATION: GENERAL: Shows a trached female who is nonresponsive to any verbal or tactile stimulation. She quinn s not move any extremities purposefully. She has roving eyes. She does not track at all. VITAL SIGNS: Blood pressure 109/62, pulse is 81 and regular, respirations of 28, temperature 98.8 d egrees, 100% saturation on 40% FIO2. HEENT: She is normocephalic and atraumatic. Anicteric, acyanotic. CHEST: Shows distant breath sounds throughout both lung [place]. Inspiratory and expiratory rhonchi . COR: S1, S2, without S3, S4, murmur, gallop, rub. Normal rate, normal rhythm. ABDOMEN: Grossly benign. LABORATORY DATA: Have been reviewed. ASSESSMENT AND PLAN: A family conference was scheduled today at 1300 hours, however, patient did no t show up to that appointment. He was called by [facility] family caseworker. He states that he had forgot t o call her, forgot her phone number and that the appointment will be rescheduled on 05/07/2016. Dictated By: PREETHI SNELL MD, LP/RAMIRO Conf#: [id number] DID#: [id number]
--- NOTE | 2016-05-07 10:50 | CONS ---
Date/Time of Note Date/Time of Note DATE: 05/07/16 TIME: 10:44 Consult Date/Type/Reason Admit Date/Time May 04, 2016 at 05:51 Initial Consult Date Type of Consultation: Pulm Subjective Minimally responsive on vent. No new events Continues vasopressors Tube feeding held secondary to elevated residuals. Objective Vital Signs Date Time Temp Pulse Resp B/P Pulse Ox O2 Delivery O2 Flow Rate FiO2 05/07/16 09:15 90 16 107/65 100 Mechanical Ventilator 05/07/16 08:00 98.8 05/07/16 05:24 40 Intake and Output 05/06/16 05/06/16 05/07/16 15:00 23:00 07:00 Intake Total 105 ml 1238.0 ml 1346.50 ml Output Total 335 ml 315 ml 215 ml Balance -230 ml 923.0 ml 1131.50 ml PHYSICAL EXAMINATION: GENERAL: Chronically ill appearing lady on mechanical ventilation, appears comfortable at rest on low dose vasopressor support. VITAL SIGNS: As above. NECK: Supple. No JVD or lymphadenopathy. HEENT: Trach site clean and intact. CARDIAC: S1, S2, no added sounds or murmurs. CHEST: Diminished air entry bilaterally. ABDOMEN: Soft, nontender. No guarding or rebound. EXTREMITIES: No cyanosis, clubbing, edema. NEUROLOGIC: Unable to assess. Results/Medications Result Diagram: 05/07/16 0520 05/07/16 0520 Results 24 hrs Laboratory Tests Test 05/06/16 12:00 05/06/16 12:48 05/06/16 17:53 05/06/16 21:47 Arterial Blood HCO3 8.7 *L Arterial Blood Base Excess -14.3 L Arterial Blood Oxygen Saturation 98.7 H David Test ACCEPTAB Arterial Blood Gas Puncture Site Right Radial Arterial Blood Carboxyhemoglobin 0.2 Arterial Blood Date Drawn 05/06/2016 2:20:00 PM Arterial Blood Methemoglobin 0.4 Arterial Blood pCO2 (Temp correct) 15.2 L Arterial Blood pH (Temp corrected) 7.376 Arterial Blood pO2 (Temp corrected) 190.9 H Blood Gas A-a O2 Differential 76.8 H Blood Gas Actual Respiration Rate 36 Blood Gas Critical Value Read Back K FARLESS RN Blood Gas Low PEEP Setting 5.0 Blood Gas Modality VENT - AC Blood Gas Notified Time 05/06/2016 2:35:00 PM Blood Gas Notified Whom JLD Blood Gas Respiration Rate 14.0 Blood Gas Specimen Source Blood arterial Blood Gas Temperature 37.0 Blood Gas Tidal Volume 500.0 FiO2 40.0 Oxyhemoglobin Percent 98.1 Total Hemoglobin 10.2 L Bedside Glucose 277 H 241 H 245 H Test 05/07/16 00:44 05/07/16 05:20 05/07/16 06:48 05/07/16 07:00 Bedside Glucose 257 H 278 H Anion Gap 19 H Basophils # 0.0 Basophils % 0.1 Blood Morphology Comment Blood Urea Nitrogen 74 H Calcium Level 7.4 L Carbon Dioxide Level 12 L Chloride Level 116 H Creatinine 2.69 H Eosinophils # 0.5 Eosinophils % 2.9 Glucose Level 249 H Hematocrit 26.9 L Hemoglobin 9.0 L Lymphocytes # 1.2 Lymphocytes % 6.7 L Magnesium Level 1.9 Mean Corpuscular Hemoglobin 29.5 Mean Corpuscular Hemoglobin Concent 33.5 Mean Corpuscular Volume 88.3 Mean Platelet Volume 9.0 Monocytes # 0.6 Monocytes % 3.3 Neutrophils # 15.5 H Neutrophils % 87.0 H Nucleated Red Blood Cells # 0.0 Nucleated Red Blood Cells % 0.0 Platelet Count 339 Potassium Level 2.9 *L Red Blood Count 3.05 L Red Cell Distribution Width 15.3 H Sodium Level 144 White Blood Count 17.9 #H Arterial Blood HCO3 11.1 L Arterial Blood Base Excess -10.9 L Arterial Blood Oxygen Saturation 98.9 H David Test ACCEPTAB Arterial Blood Gas Puncture Site Right Radial Arterial Blood Carboxyhemoglobin 0.3 Arterial Blood Date Drawn 05/07/2016 7:20:00 AM Arterial Blood Methemoglobin 0.2 Arterial Blood pCO2 (Temp correct) 15.7 L Arterial Blood pH (Temp corrected) 7.467 H Arterial Blood pO2 (Temp corrected) 199.5 H Blood Gas A-a O2 Differential 67.6 H Blood Gas Actual Respiration Rate 33 Blood Gas Critical Value Read Back not critical Blood Gas Low PEEP Setting 5.0 Blood Gas Modality VENT - AC Blood Gas Notified Time 05/07/2016 7:46:00 AM Blood Gas Notified Whom JLD Blood Gas Respiration Rate 14.0 Blood Gas Specimen Source Blood arterial Blood Gas Temperature 37.0 Blood Gas Tidal Volume 500.0 FiO2 40.0 Oxyhemoglobin Percent 98.4 Total Hemoglobin 8.7 L Test 05/07/16 09:56 Bedside Glucose 260 H Medications Current Medications Acetaminophen/ Hydrocodone Bitart (Clark (5/325)) 1 tab Q6H PRN PO MODERATE PAIN LEVEL 4-6; Start 05/04/16 at 07:30 Morphine Sulfate (morphine) 2 mg Q4H PRN IV SEVERE PAIN LEVEL 7-10; Start at 07:30 Docusate Sodium (Colace) 100 mg Q12H PRN PO CONSTIPATION; Start 05/04/16 at 07 :30 Magnesium Hydroxide (Milk Of Mag) 30 ml DAILY PRN PO CONSTIPATION; Start 05/04 at 07:30 Ondansetron HCl (Zofran Inj) 4 mg Q6H PRN IV NAUSEA AND/OR VOMITING Last administered on 05/05/16at 17:56; Admin Dose 4 MG; Start 05/04/16 at 07:30 Lorazepam (Ativan) 0.5 mg Q6H PRN IV ANXIETY Last administered on 05/06/16at 23 :58; Admin Dose 0.5 MG; Start 05/04/16 at 07:30 Hydralazine HCl (Apresoline) 10 mg Q6H PRN IV ELEVATED BLOOD PRESSURE; Start 05/04/16 at 07:30 Nitroglycerin (Nitroglycerin (Sl Tab) 0.4 Mg) 1 tab Q5M PRN SL ANGINA; Start 05/04/16 at 07:30 Acetaminophen (Tylenol Supp) 650 mg Q4 PRN [place] PAIN OR TEMP ABOVE 38C; Start at 07:30 Ascorbic Acid (Vitamin C) 500 mg DAILY PO Last administered on 05/07/16at 09:31 ; Admin Dose 500 MG; Start 05/04/16 at 09:00 Atorvastatin Calcium (Lipitor) 20 mg QHS GTB Last administered on 05/06/16at 21 :32; Admin Dose 20 MG; Start 05/04/16 at 21:00 Bisacodyl (Dulcolax Supp) 10 mg Q24H PRN [place] CONSTIPATION; Start 05/04/16 at 07 :30 Clonidine (Catapres) 0.1 mg Q6 PO Last administered on 05/04/16at 17:01; Admin Dose 0.1 MG; Start 05/04/16 at 12:00 Famotidine (Pepcid) 20 mg DAILY PO Last administered on 05/07/16at 09:31; Admin Dose 20 MG; Start 05/04/16 at 09:00 Hydralazine HCl (Apresoline) 25 mg Q6 PO Last administered on 05/04/16at 17:01 ; Admin Dose 25 MG; Start 05/04/16 at 12:00 Levetiracetam (Keppra Liquid) 1,000 mg Q12 GTB Last administered on 05/07/16at 09:30; Admin Dose 1,000 MG; Start 05/04/16 at 09:00 Senna (Senokot) 2 tab DAILY GTB Last administered on 05/04/16at 09:52; Admin Dose 2 TAB; Start 05/04/16 at 09:00 Multivitamins (Thera-Plus) 5 ml DAILY GTB Last administered on 05/07/16at 09:30 ; Admin Dose 5 ML; Start 05/04/16 at 09:00 Miscellaneous Information 1 ea NOTE XX ; Start 05/04/16 at 09:00 Glucose (Glutose) 15 gm Q15M PRN PO DECREASED GLUCOSE; Start 05/04/16 at 09:00 Glucose (Glutose) 22.5 gm Q15M PRN PO DECREASED GLUCOSE; Start 05/04/16 at 09: 00 Dextrose (D50w Syringe) 25 ml Q15M PRN IV DECREASED GLUCOSE; Start 05/04/16 at 09:00 Dextrose (D50w Syringe) 50 ml Q15M PRN IV DECREASED GLUCOSE; Start 05/04/16 at 09:00 Glucagon (Glucagen) 1 mg Q15M PRN IM DECREASED GLUCOSE; Start 05/04/16 at 09: 00 Glucose (Glutose) 15 gm Q15M PRN BUCCAL DECREASED GLUCOSE; Start 05/04/16 at 09:00 Acetaminophen (Tylenol Liquid) 650 mg Q6H PRN GTB PAIN LEVEL 1-3 OR FEVER Last administered on 05/05/16at 21:37; Admin Dose 650 MG; Start 05/04/16 at 18:30 Enoxaparin Sodium (Lovenox) 90 mg Q24H SC Last administered on 05/06/16at 09:38 ; Admin Dose 90 MG; Start 05/05/16 at 10:00 Influenza Virus Vaccine (Fluzone) 0.5 ml ONCE ONCE IM* ; Start 05/08/16 at 11: 00; Stop 05/08/16 at 11:01 Voriconazole (Vfend) 200 mg BID PO Last administered on 05/07/16 09:31; Admin Dose 200 MG; Start 05/05/16 at 12:00 Vancomycin HCl (Vancomycin Oral Syringe) 250 mg Q6 PO Last administered on 06:51; Admin Dose 250 MG; Start 05/05/16 at 12:00 Metronidazole 500 mg 500 mg Q8 GTB Last administered on 05/07/16 06:51; Admin Dose 500 MG; Start 05/05/16 at 14:00 Phenylephrine HCl 40 mg/Dextrose 500 ml @ 75 mls/hr TITRATE IV Last administered on 05/06/16 21:52; Admin Dose 16.5 MLS/HR; Start 05/05/16 at 15: 00 Linezolid 300 ml @ 300 mls/hr Q12 IVPB Last administered on 05/07/16 09:31; Admin Dose 300 MLS/HR; Start 05/06/16 at 16:40 Meropenem 500 mg/ Sodium Chloride 100 ml @ 200 mls/hr Q12 IVPB Last administered on 05/07/16 09:31; Admin Dose 200 MLS/HR; Start 05/06/16 at 15: 40 Sodium Bicarbonate/ Sodium Chloride (Na Bicarb/1/2 NS) 1,150 ml @ 100 mls/hr [id number] IV Last administered on 05/07/16 06:51; Admin Dose 100 MLS/HR; Start 05/06/16 at 16:40 Collagenase (Santyl) APPLY TO NECROTIC TISSUE DAILY TOP Last administered on at 16:30; Admin Dose 1 APPLIC; Start 05/06/16 at 16:30 Collagenase APPLY TO NECROTIC AREA PRN PRN TOP SOILING; Start 05/06/16 at 16: 00 Potassium Chloride (KCl 40 MEQ/250 ML NS) 250 ml @ 62.5 mls/hr Q4H IVPB Last administered on 05/07/16at 08:00; Admin Dose 62.5 MLS/HR; Start 05/07/16 at 08: 00; Stop 05/07/16 at 15:59 Insulin Glargine (Lantus) 10 unit QPM SC ; Start 05/07/16 at 21:00 Diagnostic Test (Pha) (Accucheck) 1 ea 02 XX ; Start 05/08/16 at 02:00 Assessment/Plan Chief Complaint/Hosp Course IMPRESSION AND PLAN: 1. Septic shock, likely secondary to urinary tract infection. 2. Chronic encephalopathy. 3. History of hemorrhagic cerebrovascular accident. 4. Vent dependent respiratory failure. 5. Severe metabolic acidosis. The patient will need: 1. Continued vasopressor support. 2. Aggressive volume resuscitation. 3. Broad spectrum antibiotics. 4. Deep venous thrombosis and gastrointestinal prophylaxis. 5. IV bicarb. Prognosis very poor, consider palliative care eval Problems: JIMMY GONSALEZ [facility], [facility] May 07, 2016 10:50
[2016-05-07] MEDS: ENOXAPARIN 100 MG/ML SYG SC SCH (11:34)
--- NOTE | 2016-05-07 16:55 | CONS ---
Date/Time of Note Date/Time of Note DATE: 05/07/16 TIME: 16:53 Assessment/Plan Assessment/Plan Chief Complaint/Hosp Course IMPRESSION: 1. Patient has [id number] kidney disease. 2. Acute renal failure due to dehydration. 3. Underlying acute tubular necrosis due to sepsis. 4. Severe sepsis. 5. hypernatremia. 6. Free water deficit. 7. Hypokalemia. 8. Lactic acidosis. 9. Normal alkaline phosphatase. 10. Anemia. 11. History of tracheostomy. 12 METABOLIC ACIDOSIS PLAN KCL CK LABS NAHCO3 BICITRA Problems: Consultation Date/Type/Reason Admit Date/Time May 04, 2016 at 05:51 Type of Consultation: RENAL 24 HR Interval Summary Subjective hx not possible: other (ON VENT) Exam/Review of Systems Vital Signs Vitals Vital Signs Date Time Temp Pulse Resp B/P Pulse Ox O2 Delivery O2 Flow Rate FiO2 05/07/16 16:00 101 05/07/16 15:15 27 106/65 100 Mechanical Ventilator 05/07/16 12:00 98.6 05/07/16 11:00 40 Intake and Output 05/06/16 05/06/16 05/07/16 15:00 23:00 07:00 Intake Total 105 ml 1238.0 ml 1346.50 ml Output Total 435 ml 565 ml 255 ml Balance -330 ml 673.0 ml 1091.50 ml Exam Neck: supple Respiratory: diminished breath sounds Cardiovascular: regular rate and rhythm Gastrointestinal: bowel sounds (+), soft Extremities: edema (+) Neurological: other (NON COMUNICATIVE) Results Result Diagram: 05/07/16 0520 05/07/16 0520 Results 24 hrs Laboratory Tests Test 05/06/16 17:53 05/06/16 21:47 05/07/16 00:44 05/07/16 05:20 Bedside Glucose 241 H 245 H 257 H Anion Gap 19 H Basophils # 0.0 Basophils % 0.1 Blood Morphology Comment Blood Urea Nitrogen 74 H Calcium Level 7.4 L Carbon Dioxide Level 12 L Chloride Level 116 H Creatinine 2.69 H Eosinophils # 0.5 Eosinophils % 2.9 Glucose Level 249 H Hematocrit 26.9 L Hemoglobin 9.0 L Lymphocytes # 1.2 Lymphocytes % 6.7 L Magnesium Level 1.9 Mean Corpuscular Hemoglobin 29.5 Mean Corpuscular Hemoglobin Concent 33.5 Mean Corpuscular Volume 88.3 Mean Platelet Volume 9.0 Monocytes # 0.6 Monocytes % 3.3 Neutrophils # 15.5 H Neutrophils % 87.0 H Nucleated Red Blood Cells # 0.0 Nucleated Red Blood Cells % 0.0 Platelet Count 339 Potassium Level 2.9 *L Red Blood Count 3.05 L Red Cell Distribution Width 15.3 H Sodium Level 144 White Blood Count 17.9 #H Test 05/07/16 06:48 05/07/16 07:00 05/07/16 09:56 05/07/16 11:36 Bedside Glucose 278 H 260 H 261 H Arterial Blood HCO3 11.1 L Arterial Blood Base Excess -10.9 L Arterial Blood Oxygen Saturation 98.9 H David Test ACCEPTAB Arterial Blood Gas Puncture Site Right Radial Arterial Blood Carboxyhemoglobin 0.3 Arterial Blood Date Drawn 05/07/2016 7:20:00 AM Arterial Blood Methemoglobin 0.2 Arterial Blood pCO2 (Temp correct) 15.7 L Arterial Blood pH (Temp corrected) 7.467 H Arterial Blood pO2 (Temp corrected) 199.5 H Blood Gas A-a O2 Differential 67.6 H Blood Gas Actual Respiration Rate 33 Blood Gas Critical Value Read Back not critical Blood Gas Low PEEP Setting 5.0 Blood Gas Modality VENT - AC Blood Gas Notified Time 05/07/2016 7:46:00 AM Blood Gas Notified Whom JLD Blood Gas Respiration Rate 14.0 Blood Gas Specimen Source Blood arterial Blood Gas Temperature 37.0 Blood Gas Tidal Volume 500.0 FiO2 40.0 Oxyhemoglobin Percent 98.4 Total Hemoglobin 8.7 L Medications Medications Current Medications Acetaminophen/ Hydrocodone Bitart (Anthon (5/325)) 1 tab Q6H PRN PO MODERATE PAIN LEVEL 4-6; Start 05/04/16 at 07:30 Morphine Sulfate (morphine) 2 mg Q4H PRN IV SEVERE PAIN LEVEL 7-10; Start at 07:30 Docusate Sodium (Colace) 100 mg Q12H PRN PO CONSTIPATION; Start 05/04/16 at 07 :30 Magnesium Hydroxide (Milk Of Mag) 30 ml DAILY PRN PO CONSTIPATION; Start 05/04 at 07:30 Ondansetron HCl (Zofran Inj) 4 mg Q6H PRN IV NAUSEA AND/OR VOMITING Last administered on 05/05/16at 17:56; Admin Dose 4 MG; Start 05/04/16 at 07:30 Lorazepam (Ativan) 0.5 mg Q6H PRN IV ANXIETY Last administered on 05/06/16 23 :58; Admin Dose 0.5 MG; Start 05/04/16 at 07:30 Hydralazine HCl (Apresoline) 10 mg Q6H PRN IV ELEVATED BLOOD PRESSURE; Start 05/04/16 at 07:30 Nitroglycerin (Nitroglycerin (Sl Tab) 0.4 Mg) 1 tab Q5M PRN SL ANGINA; Start 05/04/16 at 07:30 Acetaminophen (Tylenol Supp) 650 mg Q4 PRN [place] PAIN OR TEMP ABOVE 38C; Start at 07:30 Ascorbic Acid (Vitamin C) 500 mg DAILY PO Last administered on 05/07/16 09:31 ; Admin Dose 500 MG; Start 05/04/16 at 09:00 Atorvastatin Calcium (Lipitor) 20 mg QHS GTB Last administered on 05/06/16at 21 :32; Admin Dose 20 MG; Start 05/04/16 at 21:00 Bisacodyl (Dulcolax Supp) 10 mg Q24H PRN [place] CONSTIPATION; Start 05/04/16 at 07 :30 Clonidine (Catapres) 0.1 mg Q6 PO Last administered on 05/04/16 17:01; Admin Dose 0.1 MG; Start 05/04/16 at 12:00 Famotidine (Pepcid) 20 mg DAILY PO Last administered on 05/07/16 09:31; Admin Dose 20 MG; Start 05/04/16 at 09:00 Hydralazine HCl (Apresoline) 25 mg Q6 PO Last administered on 05/04/16 17:01 ; Admin Dose 25 MG; Start 05/04/16 at 12:00 Levetiracetam (Keppra Liquid) 1,000 mg Q12 GTB Last administered on 05/07/16 09:30; Admin Dose 1,000 MG; Start 05/04/16 at 09:00 Senna (Senokot) 2 tab DAILY GTB Last administered on 05/04/16 09:52; Admin Dose 2 TAB; Start 05/04/16 at 09:00 Multivitamins (Thera-Plus) 5 ml DAILY GTB Last administered on 05/07/16at 09:30 ; Admin Dose 5 ML; Start 05/04/16 at 09:00 Miscellaneous Information 1 ea NOTE XX ; Start 05/04/16 at 09:00 Glucose (Glutose) 15 gm Q15M PRN PO DECREASED GLUCOSE; Start 05/04/16 at 09:00 Glucose (Glutose) 22.5 gm Q15M PRN PO DECREASED GLUCOSE; Start 05/04/16 at 09: 00 Dextrose (D50w Syringe) 25 ml Q15M PRN IV DECREASED GLUCOSE; Start 05/04/16 at 09:00 Dextrose (D50w Syringe) 50 ml Q15M PRN IV DECREASED GLUCOSE; Start 05/04/16 at 09:00 Glucagon (Glucagen) 1 mg Q15M PRN IM DECREASED GLUCOSE; Start 05/04/16 at 09: 00 Glucose (Glutose) 15 gm Q15M PRN BUCCAL DECREASED GLUCOSE; Start 05/04/16 at 09:00 Acetaminophen (Tylenol Liquid) 650 mg Q6H PRN GTB PAIN LEVEL 1-3 OR FEVER Last administered on 05/05/16at 21:37; Admin Dose 650 MG; Start 05/04/16 at 18:30 Enoxaparin Sodium (Lovenox) 90 mg Q24H SC Last administered on 05/07/16at 11:34 ; Admin Dose 90 MG; Start 05/05/16 at 10:00 Influenza Virus Vaccine (Fluzone) 0.5 ml ONCE ONCE IM* ; Start 05/08/16 at 11: 00; Stop 05/08/16 at 11:01 Voriconazole (Vfend) 200 mg BID PO Last administered on 05/07/16at 09:31; Admin Dose 200 MG; Start 05/05/16 at 12:00 Vancomycin HCl (Vancomycin Oral Syringe) 250 mg Q6 PO Last administered on at 11:55; Admin Dose 250 MG; Start 05/05/16 at 12:00 Metronidazole 500 mg 500 mg Q8 GTB Last administered on 05/07/16at 14:00; Admin Dose 500 MG; Start 05/05/16 at 14:00 Phenylephrine HCl 40 mg/Dextrose 500 ml @ 75 mls/hr TITRATE IV Last administered on 05/06/16at 21:52; Admin Dose 16.5 MLS/HR; Start 05/05/16 at 15: 00 Linezolid 300 ml @ 300 mls/hr Q12 IVPB Last administered on 05/07/16at 09:31; Admin Dose 300 MLS/HR; Start 05/06/16 at 16:40 Meropenem 500 mg/ Sodium Chloride 100 ml @ 200 mls/hr Q12 IVPB Last administered on 05/07/16at 09:31; Admin Dose 200 MLS/HR; Start 05/06/16 at 15: 40 Sodium Bicarbonate/ Sodium Chloride (Na Bicarb/1/2 NS) 1,150 ml @ 100 mls/hr [id number] IV Last administered on 05/07/16at 06:51; Admin Dose 100 MLS/HR; Start 05/06/16 at 16:40 Collagenase (Santyl) APPLY TO NECROTIC TISSUE DAILY TOP Last administered on at 09:00; Admin Dose 1 APPLIC; Start 05/06/16 at 16:30 Collagenase (Santyl) APPLY TO NECROTIC AREA PRN PRN TOP SOILING; Start at 16:00 Insulin Glargine (Lantus) 10 unit QPM SC ; Start 05/07/16 at 21:00 Diagnostic Test (Pha) (Accucheck) 1 ea 02 XX ; Start 05/08/16 at 02:00 AMBER LIEBERMAN MD May 07, 2016 16:55
--- NOTE | 2016-05-07 16:58 | PN ---
DATE: 05/07/2016 SUBJECTIVE: No acute changes overnight. The patient is lying comfortably in bed. She is afebrile. She is still on low dose of Levophed. No fevers. LABORATORY: WBC today 17.9 with H and H 9 and 26.9, platelets 339, neutrophils 87. BUN 74, creatin ine 2.69, potassium 2.9. MICROBIOLOGY: Wound cultures pending. Nares swab came back negative for MRSA. INDWELLINGS: Trach, PEG, Reynolds, CORK SLABS SAWYER shunt. ANTIMICROBIALS: 1. Voriconazole. 2. Zyvox. 3. Merrem. 4. Flagyl. 5. Oral vancomycin. PHYSICAL EXAMINATION: GENERAL: This is a chronically ill-appearing, middle-aged woman who is obtunded in no distress. HEENT: Head atraumatic, normocephalic. Sclerae anicteric. Buccal mucosa dry. NECK: Supple. Tracheostomy present. CHEST: Rise symmetrical. Breath sounds diminished at the bases. HEART: S1, S2. ABDOMEN: Soft, bowel tones present. EXTREMITIES: Without cyanosis. ASSESSMENT: 1. Severe sepsis with shock. 2. Clostridium difficile colitis. 3. Unstageable sacral decubitus, possible osteomyelitis with a history of multiple debridements. 4. 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 5. Seizure disorder. 6. Chronic encephalopathy. 7. Urinary tract infection with culture grew Deyanira glabrata. PLAN: The patient remains hemodynamically unstable, covered with broad spectrum antibiotics pending wound cultures. Dictated By: DUTCH STEELE PHYSICIAN RELATIONS MANAGER for PAT ALMONTE/RAMIRO Conf#: [id number] DID#: [id number]
[2016-05-07] MEDS: ATORVASTATIN 20 MG TAB GTB SCH (20:52)
[2016-05-07] MEDS: CITRIC ACID/NA CITRATE 30 ML CUP PO SCH (20:52)
[2016-05-07] MEDS: INSULIN GLARGINE [LANtus] 3 ML PEN SC SCH (20:57)
[2016-05-08] VITALS (39 sets, daily range): BP systolic 92–114; BP diastolic 54–76; PULSE 85–106; RESP 17–36
[2016-05-08] MEDS: POTASSIUM CHLORIDE 50 ML IVPB PRN ×3 (00:26→06:10)
[2016-05-08] MEDS: SODIUM BICARBONATE (IV ADD) 150 MEQ in SOD CHLORIDE 0.45% 1,000 ML IV SCH (00:28)
[2016-05-08] MEDS: VANCOMYCIN HCL 250 MG/5ML POSYG PO SCH ×4 (01:04→18:24)
[2016-05-08] MEDS: ACCUCHECK XX SCH (02:02)
[2016-05-08 05:13] LABS: EOSINOPHILS # 0.4 10^3/ul (0.0-0.5); EOSINOPHILS % 2.9 % (0.0-7.0); HEMATOCRIT 22.2 % (37.0-47.0); HEMOGLOBIN 7.6 g/dl (12.0-16.0); LYMPHOCYTES # 1.4 10^3/ul (0.8-2.9); LYMPHOCYTES % 10.5 % (15.0-51.0); MEAN CORPUSCULAR HEMOGLOBIN 30.1 pg (29.0-33.0); MEAN CORPUSCULAR HGB CONC 34.1 g/dl (32.0-37.0); MEAN CORPUSCULAR VOLUME 88.4 fl (82.0-101.0); MEAN PLATELET VOLUME 9.3 fl (7.4-10.4); MONOCYTE # 0.5 10^3/ul (0.3-0.9); MONOCYTES % 3.6 % (0.0-11.0); NEUTROPHIL # 10.8 10^3/ul (1.6-7.5); PLATELET COUNT 306 10^3/UL (140-440); POTASSIUM 3.1 mmol/L (3.5-5.1); RED BLOOD COUNT 2.51 10^6/ul (4.20-5.40); RED CELL DISTRIBUTION WIDTH 15.6 % (11.5-14.5)
[2016-05-08 05:15] LABS: CREATININE 2.24 mg/dl (0.44-1.00)
[2016-05-08 05:16] LABS: CALCIUM 7.1 mg/dl (8.4-10.2)
[2016-05-08 05:28] LABS: CONDITION 1; LH ANALYZER COMMENTS 1
--- NOTE | 2016-05-08 06:06 | PN ---
DATE: 05/07/2016 FAMILY CONFERENCE Family conference was done with patient's daughter, and sister by conference call. We discus sed her current medical problem and the fact that she had come back in the hospital with a huge decu biti for which there is no surgical indication for trying to achieve a goal of closing his wound off , especially in patient's debilitated condition, malnourished condition and that it is past the stag e IV and into muscle and bone. Initially family members wanted time to think about it in more detail ; however, we had been through this before unfortunately with Mr. Kenny where he did not want to ad dress patient's code status. We asked that he consider this once again with his [id number] on the phone. The [id number] was very helpful and said she did not want her sister, Mrs. Kenny to suff er any longer and would agree with not doing any further aggressive care including cardiopulmonary r esuscitation in the future. However, we did not push for comfort measures, but other than explained what comfort measures would entail. Family members seem to understand this. They request having 2 4 hours to consider comfort measures. I will meet with them tomorrow prior to the patient being dis charged. Dictated By: PREETHI SNELL MD, LP/RAMIRO Conf#: [id number] DID#: [id number]
[2016-05-08] MEDS: metroNIDAZOLE 500 MG TAB GTB SCH ×2 (06:11→14:20)
[2016-05-08] MEDS: FAMOTIDINE 20 MG TAB PO SCH (08:21)
[2016-05-08] MEDS: ASCORBIC ACID 500 MG TAB PO SCH (08:21)
[2016-05-08] MEDS: MEROPENEM 500 MG in SOD CHLORIDE 0.9% 100 ML IVPB SCH ×2 (08:21→20:30)
[2016-05-08] MEDS: LEVETIRACETAM (100 MG/ML) 5ML CUP GTB SCH ×2 (08:22→20:31)
[2016-05-08] MEDS: LINEZOLID 600 MG/D5W (PMX) 300 ML IVPB SCH ×2 (08:22→22:45)
[2016-05-08] MEDS: CITRIC ACID/NA CITRATE 30 ML CUP PO SCH ×2 (08:23→21:00)
[2016-05-08] MEDS: VORICONAZOLE 200 MG TAB PO SCH ×2 (08:24→20:24)
[2016-05-08] MEDS: INSULIN ASPART [NOVOLOG] 3 ML PEN SC SCH ×4 (08:31→20:33)
[2016-05-08] MEDS: COLLAGENASE 30 GM TUBE TOP SCH (09:00)
[2016-05-08] MEDS: SENNA TAB GTB SCH (09:13)
[2016-05-08] MEDS: MULTIVITAMINS 5 ML CUP GTB SCH (09:13)
--- NOTE | 2016-05-08 09:38 | PN ---
Date/Time of Note Date/Time of Note DATE: 05/08/16 TIME: 09:35 Assessment/Plan VTE Prophylaxis VTE Prophylaxis Intervention: SCD's Lines/Catheters IV C[facility]ter Type (from [facility] Mid Line Urinary Cath still in place: Yes Reason Cath still needed: other (indicate) Assessment/Plan Chief Complaint/Hosp Course ASSESSMENT AND PLAN: 1. Sepsis, likely secondary to urinary tract infection versus sacral decubitus. The patient has been started on Zosyn and vancomycin. Infectious disease consulted. We'll continue monitor patient blood pressure, off pressors at this time 2. Ventilator-dependent respiratory failure, status post trach. Pulmonology has been consulted. 3. Acute renal insufficiency, likely secondary to sepsis versus dehydration. nephrology consulted. Continue IV fluids. 4. Diabetes mellitus. Continue sliding scale and Lantus. 5. History of cerebrovascular accident. No acute issues at this time. Patient is bed bound and a phasic 6. Dyslipidemia. Continue Lipitor. 7. Acute on chronic respiratory failure, vent-dependent, stable at this time, the patient's oxygen saturation is stable. 8. Essential Hypertension, at this time patient blood pressure is found to be hypotensive therefore we will hold all blood pressure medications 9. C. difficile toxin, continue Flagyl 10. Hypokalemia, repleted We will continue monitor patient closely for recommendation management treatment as per clinical course Condition guarded Transfer to telemetry floor Problems: Subjective 24 Hr Interval Summary Free Text/Dictation No acute changes Patient has been off pressors since yesterday afternoon Vent dependent On 05/07/2016 along with palliative care physician, social service, knit goods washer we met with patient's and daughter regarding the CODE STATUS and patient 's status. After discussing patient prognosis and her condition her decided to change the CODE STATUS to DNR. Exam/Review of Systems Vital Signs Vitals Vital Signs Date Time Temp Pulse Resp B/P Pulse Ox O2 Delivery O2 Flow Rate FiO2 05/08/16 08:00 89 05/08/16 05:08 33 100 40 05/08/16 04:00 98.8 92/76 Mechanical Ventilator Intake and Output 05/07/16 05/07/16 05/08/16 15:00 23:00 07:00 Intake Total 433.75 ml 1790 ml 1060 ml Output Total 365 ml 325 ml 300 ml Balance 68.75 ml 1465 ml 760 ml Exam General: The patient is a phasic, on vent via trach, does not respond to any pain or verbal stimuli HEENT: Atraumatic, normocephalic. The pupils are equal Neck: Supple , trach in place Chest: Normal Lungs: Decreased breath sounds bilateral lower lung field, positive crackles Heart: Normal S1-S2, Regular rhythm and rate. Abdomen: Soft , nontender, nondistended , bowel sounds are present. PEG tube in place Extremities: Flaccid, + 2 edema no cyanosis Neurologic: No meaningful neurologic examination findings Skin: Stage IV sacral decubitus Results Result Diagram: 05/08/16 04205/08/16 042 Results 24 hrs Laboratory Tests Test 05/07/16 09:56 05/07/16 11:36 05/07/16 18:22 05/07/16 18:57 Bedside Glucose 260 H 261 H 200 Potassium Level 3.5 Test 05/07/16 20:51 05/08/16 00:33 05/08/16 02:01 05/08/16 04:20 Bedside Glucose 150 188 Potassium Level 3.1 L 3.2 L Anion Gap 17 H Basophils # 0.0 Basophils % 0.0 Blood Morphology Comment Blood Urea Nitrogen 68 H Calcium Level 7.1 L Carbon Dioxide Level 17 L Chloride Level 115 H Creatinine 2.24 H Eosinophils # 0.4 Eosinophils % 2.9 Glucose Level 147 # Hematocrit 22.2 L Hemoglobin 7.6 L Lymphocytes # 1.4 Lymphocytes % 10.5 L Mean Corpuscular Hemoglobin 30.1 Mean Corpuscular Hemoglobin Concent 34.1 Mean Corpuscular Volume 88.4 Mean Platelet Volume 9.3 Monocytes # 0.5 Monocytes % 3.6 Neutrophils # 10.8 H Neutrophils % 83.0 H Nucleated Red Blood Cells # 0.0 Nucleated Red Blood Cells % 0.0 Platelet Count 306 Red Blood Count 2.51 L Red Cell Distribution Width 15.6 H Sodium Level 146 H White Blood Count 13.0 #H Test 05/08/16 07:56 Bedside Glucose 200 Medications Medications Current Medications Acetaminophen/ Hydrocodone Bitart ([place] (5/325)) 1 tab Q6H PRN PO MODERATE PAIN LEVEL 4-6; Start 05/04/16 at 07:30 Morphine Sulfate (morphine) 2 mg Q4H PRN IV SEVERE PAIN LEVEL 7-10 Last administered on 05/07/16at 18:26; Admin Dose 2 MG; Start 05/04/16 at 07:30 Docusate Sodium (Colace) 100 mg Q12H PRN PO CONSTIPATION; Start 05/04/16 at 07 :30 Magnesium Hydroxide (Milk Of Mag) 30 ml DAILY PRN PO CONSTIPATION; Start 05/04 at 07:30 Ondansetron HCl (Zofran Inj) 4 mg Q6H PRN IV NAUSEA AND/OR VOMITING Last administered on 05/05/16at 17:56; Admin Dose 4 MG; Start 05/04/16 at 07:30 Lorazepam (Ativan) 0.5 mg Q6H PRN IV ANXIETY Last administered on 05/06/16at 23 :58; Admin Dose 0.5 MG; Start 05/04/16 at 07:30 Hydralazine HCl (Apresoline) 10 mg Q6H PRN IV ELEVATED BLOOD PRESSURE; Start 05/04/16 at 07:30 Nitroglycerin (Nitroglycerin (Sl Tab) 0.4 Mg) 1 tab Q5M PRN SL ANGINA; Start 05/04/16 at 07:30 Acetaminophen (Tylenol Supp) 650 mg Q4 PRN [place] PAIN OR TEMP ABOVE 38C; Start at 07:30 Ascorbic Acid (Vitamin C) 500 mg DAILY PO Last administered on 05/08/16at 08:21 ; Admin Dose 500 MG; Start 05/04/16 at 09:00 Atorvastatin Calcium (Lipitor) 20 mg QHS GTB Last administered on 05/07/16at 20 :52; Admin Dose 20 MG; Start 05/04/16 at 21:00 Bisacodyl (Dulcolax Supp) 10 mg Q24H PRN [place] CONSTIPATION; Start 05/04/16 at 07 :30 Clonidine (Catapres) 0.1 mg Q6 PO Last administered on 05/08/16at 07:45; Admin Dose 0.1 MG; Start 05/04/16 at 12:00 Famotidine (Pepcid) 20 mg DAILY PO Last administered on 05/08/16at 08:21; Admin Dose 20 MG; Start 05/04/16 at 09:00 Hydralazine HCl (Apresoline) 25 mg Q6 PO Last administered on 05/08/16at 07:45 ; Admin Dose 25 MG; Start 05/04/16 at 12:00 Levetiracetam (Keppra Liquid) 1,000 mg Q12 GTB Last administered on 05/08/16at 08:22; Admin Dose 1,000 MG; Start 05/04/16 at 09:00 Senna (Senokot) 2 tab DAILY GTB Last administered on 05/08/16at 09:13; Admin Dose 2 TAB; Start 05/04/16 at 09:00 Multivitamins (Thera-Plus) 5 ml DAILY GTB Last administered on 05/08/16at 09:13 ; Admin Dose 5 ML; Start 05/04/16 at 09:00 Miscellaneous Information 1 ea NOTE XX ; Start 05/04/16 at 09:00 Glucose (Glutose) 15 gm Q15M PRN PO DECREASED GLUCOSE; Start 05/04/16 at 09:00 Glucose (Glutose) 22.5 gm Q15M PRN PO DECREASED GLUCOSE; Start 05/04/16 at 09: 00 Dextrose (D50w Syringe) 25 ml Q15M PRN IV DECREASED GLUCOSE; Start 05/04/16 at 09:00 Dextrose (D50w Syringe) 50 ml Q15M PRN IV DECREASED GLUCOSE; Start 05/04/16 at 09:00 Glucagon (Glucagen) 1 mg Q15M PRN IM DECREASED GLUCOSE; Start 05/04/16 at 09: 00 Glucose (Glutose) 15 gm Q15M PRN BUCCAL DECREASED GLUCOSE; Start 05/04/16 at 09:00 Acetaminophen (Tylenol Liquid) 650 mg Q6H PRN GTB PAIN LEVEL 1-3 OR FEVER Last administered on 05/05/16at 21:37; Admin Dose 650 MG; Start 05/04/16 at 18:30 Enoxaparin Sodium (Lovenox) 90 mg Q24H SC Last administered on 05/07/16at 11:34 ; Admin Dose 90 MG; Start 05/05/16 at 10:00 Influenza Virus Vaccine (Fluzone) 0.5 ml ONCE ONCE IM* ; Start 05/08/16 at 11: 00; Stop 05/08/16 at 11:01 Voriconazole (Vfend) 200 mg BID PO Last administered on 05/08/16at 08:24; Admin Dose 200 MG; Start 05/05/16 at 12:00 Vancomycin HCl (Vancomycin Oral Syringe) 250 mg Q6 PO Last administered on 06:17; Admin Dose 250 MG; Start 05/05/16 at 12:00 Metronidazole 500 mg 500 mg Q8 GTB Last administered on 05/08/16at 06:11; Admin Dose 500 MG; Start 05/05/16 at 14:00 Phenylephrine HCl 40 mg/Dextrose 500 ml @ 75 mls/hr TITRATE IV Last administered on 05/06/16at 21:52; Admin Dose 16.5 MLS/HR; Start 05/05/16 at 15: 00 Linezolid 300 ml @ 300 mls/hr Q12 IVPB Last administered on 05/08/16at 08:22; Admin Dose 300 MLS/HR; Start 05/06/16 at 16:40 Meropenem 500 mg/ Sodium Chloride 100 ml @ 200 mls/hr Q12 IVPB Last administered on 05/08/16at 08:21; Admin Dose 200 MLS/HR; Start 05/06/16 at 15: 40 Sodium Bicarbonate/ Sodium Chloride (Na Bicarb/1/2 NS) 1,150 ml @ 100 mls/hr [id number] IV Last administered on 05/08/16at 00:28; Admin Dose 100 MLS/HR; Start 05/06/16 at 16:40 Collagenase (Santyl) APPLY TO NECROTIC TISSUE DAILY TOP Last administered on at 09:00; Admin Dose 1 APPLIC; Start 05/06/16 at 16:30 Collagenase (Santyl) APPLY TO NECROTIC AREA PRN PRN TOP SOILING; Start at 16:00 Insulin Glargine (Lantus) 10 unit QPM SC Last administered on 05/07/16at 20:57 ; Admin Dose 10 UNIT; Start 05/07/16 at 21:00 Diagnostic Test (Pha) (Accucheck) 1 ea 02 XX Last administered on 05/08/16at 02 :02; Admin Dose 1 EA; Start 05/08/16 at 02:00 Citric Acid/ Sodium Citrate (Bicitra) 30 ml BID PO Last administered on at 08:23; Admin Dose 30 ML; Start 05/07/16 at 21:00 AMY HANKINS MD May 08, 2016 09:37
--- NOTE | 2016-05-08 10:02 | CONS ---
Date/Time of Note Date/Time of Note DATE: 05/08/16 TIME: 10:01 Consult Date/Type/Reason Admit Date/Time May 04, 2016 at 05:51 Type of Consultation: Pulmonary Subjective Patient remains somnolent on mechanical ventilation No vasopressors Currently hemodynamically stable Objective Vital Signs Date Time Temp Pulse Resp B/P Pulse Ox O2 Delivery O2 Flow Rate FiO2 05/08/16 08:00 89 05/08/16 05:08 33 100 40 05/08/16 04:00 98.8 92/76 Mechanical Ventilator Intake and Output 05/07/16 05/07/16 05/08/16 15:00 23:00 07:00 Intake Total 433.75 ml 1790 ml 1060 ml Output Total 365 ml 325 ml 300 ml Balance 68.75 ml 1465 ml 760 ml PHYSICAL EXAMINATION: GENERAL: Chronically ill appearing lady on mechanical ventilation, appears comfortable at rest VITAL SIGNS: As above. NECK: Supple. No JVD or lymphadenopathy. HEENT: Trach site clean and intact. CARDIAC: S1, S2, no added sounds or murmurs. CHEST: Diminished air entry bilaterally. ABDOMEN: Soft, nontender. No guarding or rebound. EXTREMITIES: No cyanosis, clubbing, yared edema +2 NEUROLOGIC: Unable to assess. Results/Medications Result Diagram: 05/08/16 0420 05/08/16 0420 Results 24 hrs Laboratory Tests Test 05/07/16 11:36 05/07/16 18:22 05/07/16 18:57 05/07/16 20:51 Bedside Glucose 261 H 200 150 Potassium Level 3.5 Test 05/08/16 00:33 05/08/16 02:01 05/08/16 04:20 05/08/16 07:56 Potassium Level 3.1 L 3.2 L Bedside Glucose 188 200 Anion Gap 17 H Basophils # 0.0 Basophils % 0.0 Blood Morphology Comment Blood Urea Nitrogen 68 H Calcium Level 7.1 L Carbon Dioxide Level 17 L Chloride Level 115 H Creatinine 2.24 H Eosinophils # 0.4 Eosinophils % 2.9 Glucose Level 147 # Hematocrit 22.2 L Hemoglobin 7.6 L Lymphocytes # 1.4 Lymphocytes % 10.5 L Mean Corpuscular Hemoglobin 30.1 Mean Corpuscular Hemoglobin Concent 34.1 Mean Corpuscular Volume 88.4 Mean Platelet Volume 9.3 Monocytes # 0.5 Monocytes % 3.6 Neutrophils # 10.8 H Neutrophils % 83.0 H Nucleated Red Blood Cells # 0.0 Nucleated Red Blood Cells % 0.0 Platelet Count 306 Red Blood Count 2.51 L Red Cell Distribution Width 15.6 H Sodium Level 146 H White Blood Count 13.0 #H Medications Current Medications Acetaminophen/ Hydrocodone Bitart ([place] (5/325)) 1 tab Q6H PRN PO MODERATE PAIN LEVEL 4-6; Start 05/04/16 at 07:30 Morphine Sulfate (morphine) 2 mg Q4H PRN IV SEVERE PAIN LEVEL 7-10 Last administered on 05/07/16at 18:26; Admin Dose 2 MG; Start 05/04/16 at 07:30 Docusate Sodium (Colace) 100 mg Q12H PRN PO CONSTIPATION; Start 05/04/16 at 07 :30 Magnesium Hydroxide (Milk Of Mag) 30 ml DAILY PRN PO CONSTIPATION; Start 05/04 at 07:30 Ondansetron HCl (Zofran Inj) 4 mg Q6H PRN IV NAUSEA AND/OR VOMITING Last administered on 05/05/16at 17:56; Admin Dose 4 MG; Start 05/04/16 at 07:30 Lorazepam (Ativan) 0.5 mg Q6H PRN IV ANXIETY Last administered on 05/06/16at 23 :58; Admin Dose 0.5 MG; Start 05/04/16 at 07:30 Hydralazine HCl (Apresoline) 10 mg Q6H PRN IV ELEVATED BLOOD PRESSURE; Start 05/04/16 at 07:30 Nitroglycerin (Nitroglycerin (Sl Tab) 0.4 Mg) 1 tab Q5M PRN SL ANGINA; Start 05/04/16 at 07:30 Acetaminophen (Tylenol Supp) 650 mg Q4 PRN [place] PAIN OR TEMP ABOVE 38C; Start at 07:30 Ascorbic Acid (Vitamin C) 500 mg DAILY PO Last administered on 05/08/16at 08:21 ; Admin Dose 500 MG; Start 05/04/16 at 09:00 Atorvastatin Calcium (Lipitor) 20 mg QHS GTB Last administered on 05/07/16at 20 :52; Admin Dose 20 MG; Start 05/04/16 at 21:00 Bisacodyl (Dulcolax Supp) 10 mg Q24H PRN [place] CONSTIPATION; Start 05/04/16 at 07 :30 Clonidine (Catapres) 0.1 mg Q6 PO Last administered on 05/08/16at 07:45; Admin Dose 0.1 MG; Start 05/04/16 at 12:00 Famotidine (Pepcid) 20 mg DAILY PO Last administered on 05/08/16at 08:21; Admin Dose 20 MG; Start 05/04/16 at 09:00 Hydralazine HCl (Apresoline) 25 mg Q6 PO Last administered on 05/08/16at 07:45 ; Admin Dose 25 MG; Start 05/04/16 at 12:00 Levetiracetam (Keppra Liquid) 1,000 mg Q12 GTB Last administered on 05/08/16at 08:22; Admin Dose 1,000 MG; Start 05/04/16 at 09:00 Senna (Senokot) 2 tab DAILY GTB Last administered on 05/08/16at 09:13; Admin Dose 2 TAB; Start 05/04/16 at 09:00 Multivitamins (Thera-Plus) 5 ml DAILY GTB Last administered on 05/08/16at 09:13 ; Admin Dose 5 ML; Start 05/04/16 at 09:00 Miscellaneous Information 1 ea NOTE XX ; Start 05/04/16 at 09:00 Glucose (Glutose) 15 gm Q15M PRN PO DECREASED GLUCOSE; Start 05/04/16 at 09:00 Glucose (Glutose) 22.5 gm Q15M PRN PO DECREASED GLUCOSE; Start 05/04/16 at 09: 00 Dextrose (D50w Syringe) 25 ml Q15M PRN IV DECREASED GLUCOSE; Start 05/04/16 at 09:00 Dextrose (D50w Syringe) 50 ml Q15M PRN IV DECREASED GLUCOSE; Start 05/04/16 at 09:00 Glucagon (Glucagen) 1 mg Q15M PRN IM DECREASED GLUCOSE; Start 05/04/16 at 09: 00 Glucose (Glutose) 15 gm Q15M PRN BUCCAL DECREASED GLUCOSE; Start 05/04/16 at 09:00 Acetaminophen (Tylenol Liquid) 650 mg Q6H PRN GTB PAIN LEVEL 1-3 OR FEVER Last administered on 05/05/16at 21:37; Admin Dose 650 MG; Start 05/04/16 at 18:30 Enoxaparin Sodium (Lovenox) 90 mg Q24H SC Last administered on 05/07/16at 11:34 ; Admin Dose 90 MG; Start 05/05/16 at 10:00 Influenza Virus Vaccine (Fluzone) 0.5 ml ONCE ONCE IM* ; Start 05/08/16 at 11: 00; Stop 05/08/16 at 11:01 Voriconazole (Vfend) 200 mg BID PO Last administered on 05/08/16at 08:24; Admin Dose 200 MG; Start 05/05/16 at 12:00 Vancomycin HCl (Vancomycin Oral Syringe) 250 mg Q6 PO Last administered on at 06:17; Admin Dose 250 MG; Start 05/05/16 at 12:00 Metronidazole 500 mg 500 mg Q8 GTB Last administered on 05/08/16at 06:11; Admin Dose 500 MG; Start 05/05/16 at 14:00 Phenylephrine HCl 40 mg/Dextrose 500 ml @ 75 mls/hr TITRATE IV Last administered on 05/06/16at 21:52; Admin Dose 16.5 MLS/HR; Start 05/05/16 at 15: 00 Linezolid 300 ml @ 300 mls/hr Q12 IVPB Last administered on 05/08/16at 08:22; Admin Dose 300 MLS/HR; Start 05/06/16 at 16:40 Meropenem 500 mg/ Sodium Chloride 100 ml @ 200 mls/hr Q12 IVPB Last administered on 05/08/16at 08:21; Admin Dose 200 MLS/HR; Start 05/06/16 at 15: 40 Sodium Bicarbonate/ Sodium Chloride (Na Bicarb/1/2 NS) 1,150 ml @ 100 mls/hr [id number] IV Last administered on 05/08/16at 00:28; Admin Dose 100 MLS/HR; Start 05/06/16 at 16:40 Collagenase (Santyl) APPLY TO NECROTIC TISSUE DAILY TOP Last administered on at 09:00; Admin Dose 1 APPLIC; Start 05/06/16 at 16:30 Collagenase (Santyl) APPLY TO NECROTIC AREA PRN PRN TOP SOILING; Start at 16:00 Insulin Glargine (Lantus) 10 unit QPM SC Last administered on 05/07/16at 20:57 ; Admin Dose 10 UNIT; Start 05/07/16 at 21:00 Diagnostic Test (Pha) (Accucheck) 1 ea 02 XX Last administered on 05/08/16at 02 :02; Admin Dose 1 EA; Start 05/08/16 at 02:00 Citric Acid/ Sodium Citrate (Bicitra) 30 ml BID PO Last administered on at 08:23; Admin Dose 30 ML; Start 05/07/16 at 21:00 Assessment/Plan Chief Complaint/Hosp Course IMPRESSION AND PLAN: 1. Septic shock, likely secondary to urinary tract infection. 2. Chronic encephalopathy. 3. History of hemorrhagic cerebrovascular accident. 4. Vent dependent respiratory failure. 5. Severe metabolic acidosis. 6. Anemia likely of chronic disease plus hemodilution The patient will need: 1. Consider transfusion 1 unit packed red blood cells 2. Volume resuscitation 3. Broad spectrum antibiotics. 4. Deep venous thrombosis and gastrointestinal prophylaxis. 5. IV bicarb. 6. Transfer to telemetry okay from pulmonary standpoint Prognosis very poor, consider palliative care eval Per nursing staff family conference scheduled for today Problems: JIMMY GONSALEZ MD, [facility] May 08, 2016 10:02
[2016-05-08] MEDS ORDERED: POTASSIUM CHLORIDE 20 MEQ in SOD CHLORIDE 0.9% 100 ML IVPB ONE (10:30)
--- NOTE | 2016-05-08 10:30 | CONS ---
Date/Time of Note Date/Time of Note DATE: 05/08/16 TIME: 10:07 Assessment/Plan Assessment/Plan Chief Complaint/Hosp Course ID PROGRESS NOTE 24H INTERVAL SUMMARY * Chronic encephalopathic, eyes open, non-tracking, Trach->Vent, VSS, no fevers , WBC down today * Large sacrococcygeal decub IV possible osteomyelitis, does not appear wound cultures have been ordered * LABORATORY: WBC down trending * INDWELLINGS: Trach, PEG, Reynolds, ACADEMIC COORDINATOR shunt. ANTIMICROBIALS: 1. Voriconazole. 2. Zyvox. 3. Merrem. 4. Flagyl. 5. Oral vancomycin. PHYSICAL EXAMINATION: GENERAL: 46 yo chronic encephalopathic, eyes open, non-tracking, non- communicative HEENT: Unremarkable, oral secretions require suction NECK: Supple. Tracheostomy present. CHEST: Rise symmetrical. HEART: NSR on tele ABDOMEN: Soft, Peg EXTREMITIES: Without cyanosis/atrophy ID ASSESSMENT: 1. Severe sepsis with shock. 2. Clostridium difficile colitis. 3. Unstageable sacral decubitus, possible osteomyelitis with a history of multiple debridements. 4. 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 5. Seizure disorder. 6. Chronic encephalopathy. 7. Urinary tract infection with culture grew Deyanira glabrata. ID PLAN: Continue current ABX Wound cx ordered today . Problems: Consultation Date/Type/Reason Admit Date/Time May 04, 2016 at 05:51 Initial Consult Date Type of Consultation: ID Exam/Review of Systems Vital Signs Vitals Vital Signs Date Time Temp Pulse Resp B/P Pulse Ox O2 Delivery O2 Flow Rate FiO2 05/08/16 08:00 89 05/08/16 05:08 33 100 40 05/08/16 04:00 98.8 92/76 Mechanical Ventilator Intake and Output 05/07/16 05/07/16 05/08/16 15:00 23:00 07:00 Intake Total 433.75 ml 1790 ml 1060 ml Output Total 365 ml 325 ml 300 ml Balance 68.75 ml 1465 ml 760 ml Results Result Diagram: 05/08/16 0420 05/08/16 0420 Results 24 hrs Laboratory Tests Test 05/07/16 11:36 05/07/16 18:22 05/07/16 18:57 05/07/16 20:51 Bedside Glucose 261 H 200 150 Potassium Level 3.5 Test 05/08/16 00:33 05/08/16 02:01 05/08/16 04:20 05/08/16 07:56 Potassium Level 3.1 L 3.2 L Bedside Glucose 188 200 Anion Gap 17 H Basophils # 0.0 Basophils % 0.0 Blood Morphology Comment Blood Urea Nitrogen 68 H Calcium Level 7.1 L Carbon Dioxide Level 17 L Chloride Level 115 H Creatinine 2.24 H Eosinophils # 0.4 Eosinophils % 2.9 Glucose Level 147 # Hematocrit 22.2 L Hemoglobin 7.6 L Lymphocytes # 1.4 Lymphocytes % 10.5 L Mean Corpuscular Hemoglobin 30.1 Mean Corpuscular Hemoglobin Concent 34.1 Mean Corpuscular Volume 88.4 Mean Platelet Volume 9.3 Monocytes # 0.5 Monocytes % 3.6 Neutrophils # 10.8 H Neutrophils % 83.0 H Nucleated Red Blood Cells # 0.0 Nucleated Red Blood Cells % 0.0 Platelet Count 306 Red Blood Count 2.51 L Red Cell Distribution Width 15.6 H Sodium Level 146 H White Blood Count 13.0 #H Medications Medications Current Medications Acetaminophen/ Hydrocodone Bitart ([place] (5/325)) 1 tab Q6H PRN PO MODERATE PAIN LEVEL 4-6; Start 05/04/16 at 07:30 Morphine Sulfate (morphine) 2 mg Q4H PRN IV SEVERE PAIN LEVEL 7-10 Last administered on 05/07/16at 18:26; Admin Dose 2 MG; Start 05/04/16 at 07:30 Docusate Sodium (Colace) 100 mg Q12H PRN PO CONSTIPATION; Start 05/04/16 at 07 :30 Magnesium Hydroxide (Milk Of Mag) 30 ml DAILY PRN PO CONSTIPATION; Start 05/04 at 07:30 Ondansetron HCl (Zofran Inj) 4 mg Q6H PRN IV NAUSEA AND/OR VOMITING Last administered on 05/05/16at 17:56; Admin Dose 4 MG; Start 05/04/16 at 07:30 Lorazepam (Ativan) 0.5 mg Q6H PRN IV ANXIETY Last administered on 05/06/16at 23 :58; Admin Dose 0.5 MG; Start 05/04/16 at 07:30 Hydralazine HCl (Apresoline) 10 mg Q6H PRN IV ELEVATED BLOOD PRESSURE; Start 05/04/16 at 07:30 Nitroglycerin (Nitroglycerin (Sl Tab) 0.4 Mg) 1 tab Q5M PRN SL ANGINA; Start 05/04/16 at 07:30 Acetaminophen (Tylenol Supp) 650 mg Q4 PRN [place] PAIN OR TEMP ABOVE 38C; Start at 07:30 Ascorbic Acid (Vitamin C) 500 mg DAILY PO Last administered on 05/08/16at 08:21 ; Admin Dose 500 MG; Start 05/04/16 at 09:00 Atorvastatin Calcium (Lipitor) 20 mg QHS GTB Last administered on 05/07/16at 20 :52; Admin Dose 20 MG; Start 05/04/16 at 21:00 Bisacodyl (Dulcolax Supp) 10 mg Q24H PRN [place] CONSTIPATION; Start 05/04/16 at 07 :30 Clonidine (Catapres) 0.1 mg Q6 PO Last administered on 05/08/16at 07:45; Admin Dose 0.1 MG; Start 05/04/16 at 12:00 Famotidine (Pepcid) 20 mg DAILY PO Last administered on 05/08/16at 08:21; Admin Dose 20 MG; Start 05/04/16 at 09:00 Hydralazine HCl (Apresoline) 25 mg Q6 PO Last administered on 05/08/16at 07:45 ; Admin Dose 25 MG; Start 05/04/16 at 12:00 Levetiracetam (Keppra Liquid) 1,000 mg Q12 GTB Last administered on 05/08/16at 08:22; Admin Dose 1,000 MG; Start 05/04/16 at 09:00 Senna (Senokot) 2 tab DAILY GTB Last administered on 05/08/16at 09:13; Admin Dose 2 TAB; Start 05/04/16 at 09:00 Multivitamins (Thera-Plus) 5 ml DAILY GTB Last administered on 05/08/16at 09:13 ; Admin Dose 5 ML; Start 05/04/16 at 09:00 Miscellaneous Information 1 ea NOTE XX ; Start 05/04/16 at 09:00 Glucose (Glutose) 15 gm Q15M PRN PO DECREASED GLUCOSE; Start 05/04/16 at 09:00 Glucose (Glutose) 22.5 gm Q15M PRN PO DECREASED GLUCOSE; Start 05/04/16 at 09: 00 Dextrose (D50w Syringe) 25 ml Q15M PRN IV DECREASED GLUCOSE; Start 05/04/16 at 09:00 Dextrose (D50w Syringe) 50 ml Q15M PRN IV DECREASED GLUCOSE; Start 05/04/16 at 09:00 Glucagon (Glucagen) 1 mg Q15M PRN IM DECREASED GLUCOSE; Start 05/04/16 at 09: 00 Glucose (Glutose) 15 gm Q15M PRN BUCCAL DECREASED GLUCOSE; Start 05/04/16 at 09:00 Acetaminophen (Tylenol Liquid) 650 mg Q6H PRN GTB PAIN LEVEL 1-3 OR FEVER Last administered on 05/05/16at 21:37; Admin Dose 650 MG; Start 05/04/16 at 18:30 Enoxaparin Sodium (Lovenox) 90 mg Q24H SC Last administered on 05/07/16at 11:34 ; Admin Dose 90 MG; Start 05/05/16 at 10:00 Influenza Virus Vaccine (Fluzone) 0.5 ml ONCE ONCE IM* ; Start 05/08/16 at 11: 00; Stop 05/08/16 at 11:01 Voriconazole (Vfend) 200 mg BID PO Last administered on 05/08/16at 08:24; Admin Dose 200 MG; Start 05/05/16 at 12:00 Vancomycin HCl (Vancomycin Oral Syringe) 250 mg Q6 PO Last administered on at 06:17; Admin Dose 250 MG; Start 05/05/16 at 12:00 Metronidazole 500 mg 500 mg Q8 GTB Last administered on 05/08/16at 06:11; Admin Dose 500 MG; Start 05/05/16 at 14:00 Phenylephrine HCl 40 mg/Dextrose 500 ml @ 75 mls/hr TITRATE IV Last administered on 05/06/16at 21:52; Admin Dose 16.5 MLS/HR; Start 05/05/16 at 15: 00 Linezolid 300 ml @ 300 mls/hr Q12 IVPB Last administered on 05/08/16at 08:22; Admin Dose 300 MLS/HR; Start 05/06/16 at 16:40 Meropenem 500 mg/ Sodium Chloride 100 ml @ 200 mls/hr Q12 IVPB Last administered on 05/08/16at 08:21; Admin Dose 200 MLS/HR; Start 05/06/16 at 15: 40 Sodium Bicarbonate/ Sodium Chloride (Na Bicarb/1/2 NS) 1,150 ml @ 100 mls/hr [id number] IV Last administered on 05/08/16at 00:28; Admin Dose 100 MLS/HR; Start 05/06/16 at 16:40 Collagenase (Santyl) APPLY TO NECROTIC TISSUE DAILY TOP Last administered on at 09:00; Admin Dose 1 APPLIC; Start 05/06/16 at 16:30 Collagenase (Santyl) APPLY TO NECROTIC AREA PRN PRN TOP SOILING; Start at 16:00 Insulin Glargine (Lantus) 10 unit QPM SC Last administered on 05/07/16at 20:57 ; Admin Dose 10 UNIT; Start 05/07/16 at 21:00 Diagnostic Test (Pha) (Accucheck) 1 ea 02 XX Last administered on 05/08/16at 02 :02; Admin Dose 1 EA; Start 05/08/16 at 02:00 Citric Acid/ Sodium Citrate (Bicitra) 30 ml BID PO Last administered on at 08:23; Admin Dose 30 ML; Start 05/07/16 at 21:00 MAURA COX NP May 08, 2016 10:30
[2016-05-08] MEDS ORDERED: INFLUENZA VIRUS VACCINE 0.5 ML (DISPENSING) IM* ONE (11:00)
[2016-05-08] MEDS: ENOXAPARIN 100 MG/ML SYG SC SCH (11:28)
--- NOTE | 2016-05-08 13:25 | CONS ---
Date/Time of Note Date/Time of Note DATE: 05/08/16 TIME: 13:24 Assessment/Plan Assessment/Plan Chief Complaint/Hosp Course IMPRESSION: 1. Patient has [id number] kidney disease. 2. Acute renal failure due to dehydration. 3. Underlying acute tubular necrosis due to sepsis. 4. Severe sepsis. 5. hypernatremia. 6. Free water deficit. 7. Hypokalemia. 8. Lactic acidosis. 9. Normal alkaline phosphatase. 10. Anemia. 11. History of tracheostomy. 12 METABOLIC ACIDOSIS PLAN KCL CK LABS NAHCO3 BICITRA Problems: Consultation Date/Type/Reason Admit Date/Time May 04, 2016 at 05:51 Type of Consultation: renal 24 HR Interval Summary Subjective hx not possible: other (on hd) Exam/Review of Systems Vital Signs Vitals Vital Signs Date Time Temp Pulse Resp B/P Pulse Ox O2 Delivery O2 Flow Rate FiO2 05/08/16 12:00 97 05/08/16 12:00 21 108/69 100 05/08/16 11:00 40 05/08/16 09:00 98.7 05/08/16 04:00 Mechanical Ventilator Intake and Output 05/07/16 05/07/16 05/08/16 15:00 23:00 07:00 Intake Total 433.75 ml 1790 ml 1060 ml Output Total 365 ml 525 ml 300 ml Balance 68.75 ml 1265 ml 760 ml Exam Respiratory: diminished breath sounds Cardiovascular: regular rate and rhythm Gastrointestinal: bowel sounds (+), soft Extremities: edema (+) Results Result Diagram: 05/08/16 0420 05/08/16 0420 Results 24 hrs Laboratory Tests Test 05/07/16 18:22 05/07/16 18:57 05/07/16 20:51 05/08/16 00:33 Bedside Glucose 200 150 Potassium Level 3.5 3.1 L Test 05/08/16 02:01 05/08/16 04:20 05/08/16 07:56 05/08/16 11:25 Bedside Glucose 188 200 220 Anion Gap 17 H Basophils # 0.0 Basophils % 0.0 Blood Morphology Comment Blood Urea Nitrogen 68 H Calcium Level 7.1 L Carbon Dioxide Level 17 L Chloride Level 115 H Creatinine 2.24 H Eosinophils # 0.4 Eosinophils % 2.9 Glucose Level 147 # Hematocrit 22.2 L Hemoglobin 7.6 L Lymphocytes # 1.4 Lymphocytes % 10.5 L Mean Corpuscular Hemoglobin 30.1 Mean Corpuscular Hemoglobin Concent 34.1 Mean Corpuscular Volume 88.4 Mean Platelet Volume 9.3 Monocytes # 0.5 Monocytes % 3.6 Neutrophils # 10.8 H Neutrophils % 83.0 H Nucleated Red Blood Cells # 0.0 Nucleated Red Blood Cells % 0.0 Platelet Count 306 Potassium Level 3.2 L Red Blood Count 2.51 L Red Cell Distribution Width 15.6 H Sodium Level 146 H White Blood Count 13.0 #H Medications Medications Current Medications Acetaminophen/ Hydrocodone Bitart ([place] (5/325)) 1 tab Q6H PRN PO MODERATE PAIN LEVEL 4-6; Start 05/04/16 at 07:30 Morphine Sulfate (morphine) 2 mg Q4H PRN IV SEVERE PAIN LEVEL 7-10 Last administered on 05/07/16at 18:26; Admin Dose 2 MG; Start 05/04/16 at 07:30 Docusate Sodium (Colace) 100 mg Q12H PRN PO CONSTIPATION; Start 05/04/16 at 07 :30 Magnesium Hydroxide (Milk Of Mag) 30 ml DAILY PRN PO CONSTIPATION; Start 05/04 at 07:30 Ondansetron HCl (Zofran Inj) 4 mg Q6H PRN IV NAUSEA AND/OR VOMITING Last administered on 05/05/16at 17:56; Admin Dose 4 MG; Start 05/04/16 at 07:30 Lorazepam (Ativan) 0.5 mg Q6H PRN IV ANXIETY Last administered on 05/06/16at 23 :58; Admin Dose 0.5 MG; Start 05/04/16 at 07:30 Hydralazine HCl (Apresoline) 10 mg Q6H PRN IV ELEVATED BLOOD PRESSURE; Start 05/04/16 at 07:30 Nitroglycerin (Nitroglycerin (Sl Tab) 0.4 Mg) 1 tab Q5M PRN SL ANGINA; Start 05/04/16 at 07:30 Acetaminophen (Tylenol Supp) 650 mg Q4 PRN [place] PAIN OR TEMP ABOVE 38C; Start at 07:30 Ascorbic Acid (Vitamin C) 500 mg DAILY PO Last administered on 05/08/16at 08:21 ; Admin Dose 500 MG; Start 05/04/16 at 09:00 Atorvastatin Calcium (Lipitor) 20 mg QHS GTB Last administered on 05/07/16at 20 :52; Admin Dose 20 MG; Start 05/04/16 at 21:00 Bisacodyl (Dulcolax Supp) 10 mg Q24H PRN [place] CONSTIPATION; Start 05/04/16 at 07 :30 Clonidine (Catapres) 0.1 mg Q6 PO Last administered on 05/08/16at 11:32; Admin Dose 0.1 MG; Start 05/04/16 at 12:00 Famotidine (Pepcid) 20 mg DAILY PO Last administered on 05/08/16at 08:21; Admin Dose 20 MG; Start 05/04/16 at 09:00 Hydralazine HCl (Apresoline) 25 mg Q6 PO Last administered on 05/08/16at 11:32 ; Admin Dose 25 MG; Start 05/04/16 at 12:00 Levetiracetam (Keppra Liquid) 1,000 mg Q12 GTB Last administered on 05/08/16at 08:22; Admin Dose 1,000 MG; Start 05/04/16 at 09:00 Senna (Senokot) 2 tab DAILY GTB Last administered on 05/08/16at 09:13; Admin Dose 2 TAB; Start 05/04/16 at 09:00 Multivitamins (Thera-Plus) 5 ml DAILY GTB Last administered on 05/08/16at 09:13 ; Admin Dose 5 ML; Start 05/04/16 at 09:00 Miscellaneous Information 1 ea NOTE XX ; Start 05/04/16 at 09:00 Glucose (Glutose) 15 gm Q15M PRN PO DECREASED GLUCOSE; Start 05/04/16 at 09:00 Glucose (Glutose) 22.5 gm Q15M PRN PO DECREASED GLUCOSE; Start 05/04/16 at 09: 00 Dextrose (D50w Syringe) 25 ml Q15M PRN IV DECREASED GLUCOSE; Start 05/04/16 at 09:00 Dextrose (D50w Syringe) 50 ml Q15M PRN IV DECREASED GLUCOSE; Start 05/04/16 at 09:00 Glucagon (Glucagen) 1 mg Q15M PRN IM DECREASED GLUCOSE; Start 05/04/16 at 09: 00 Glucose (Glutose) 15 gm Q15M PRN BUCCAL DECREASED GLUCOSE; Start 05/04/16 at 09:00 Acetaminophen (Tylenol Liquid) 650 mg Q6H PRN GTB PAIN LEVEL 1-3 OR FEVER Last administered on 05/05/16at 21:37; Admin Dose 650 MG; Start 05/04/16 at 18:30 Enoxaparin Sodium (Lovenox) 90 mg Q24H SC Last administered on 05/08/16at 11:28 ; Admin Dose 90 MG; Start 05/05/16 at 10:00 Voriconazole (Vfend) 200 mg BID PO Last administered on 05/08/16at 08:24; Admin Dose 200 MG; Start 05/05/16 at 12:00 Vancomycin HCl (Vancomycin Oral Syringe) 250 mg Q6 PO Last administered on at 11:33; Admin Dose 250 MG; Start 05/05/16 at 12:00 Metronidazole 500 mg 500 mg Q8 GTB Last administered on 05/08/16at 06:11; Admin Dose 500 MG; Start 05/05/16 at 14:00 Phenylephrine HCl 40 mg/Dextrose 500 ml @ 75 mls/hr TITRATE IV Last administered on 05/06/16at 21:52; Admin Dose 16.5 MLS/HR; Start 05/05/16 at 15: 00 Linezolid 300 ml @ 300 mls/hr Q12 IVPB Last administered on 05/08/16at 08:22; Admin Dose 300 MLS/HR; Start 05/06/16 at 16:40 Meropenem 500 mg/ Sodium Chloride 100 ml @ 200 mls/hr Q12 IVPB Last administered on 05/08/16at 08:21; Admin Dose 200 MLS/HR; Start 05/06/16 at 15: 40 Sodium Bicarbonate/ Sodium Chloride (Na Bicarb/1/2 NS) 1,150 ml @ 100 mls/hr [id number] IV Last administered on 05/08/16at 00:28; Admin Dose 100 MLS/HR; Start 05/06/16 at 16:40 Collagenase (Santyl) APPLY TO NECROTIC TISSUE DAILY TOP Last administered on at 09:00; Admin Dose 2 APPLIC; Start 05/06/16 at 16:30 Collagenase (Santyl) APPLY TO NECROTIC AREA PRN PRN TOP SOILING; Start at 16:00 Insulin Glargine (Lantus) 10 unit QPM SC Last administered on 05/07/16at 20:57 ; Admin Dose 10 UNIT; Start 05/07/16 at 21:00 Diagnostic Test (Pha) (Accucheck) 1 ea 02 XX Last administered on 05/08/16at 02 :02; Admin Dose 1 EA; Start 05/08/16 at 02:00 Citric Acid/ Sodium Citrate (Bicitra) 30 ml BID PO Last administered on at 08:23; Admin Dose 30 ML; Start 05/07/16 at 21:00 AMBER LIEBERMAN MD May 08, 2016 13:25
[2016-05-08] MEDS: ATORVASTATIN 20 MG TAB GTB SCH (20:24)
[2016-05-08] MEDS: INSULIN GLARGINE [LANtus] 3 ML PEN SC SCH (20:32)
[2016-05-09] VITALS (26 sets, daily range): BP systolic 95–131; BP diastolic 53–69; PULSE 78–109; RESP 15–28
[2016-05-09] MEDS: VANCOMYCIN HCL 250 MG/5ML POSYG PO SCH ×3 (00:11→13:36)
[2016-05-09] MEDS: metroNIDAZOLE 500 MG TAB GTB SCH ×4 (00:13→21:27)
[2016-05-09] MEDS: ACCUCHECK XX SCH (04:00)
[2016-05-09] MEDS: CITRIC ACID/NA CITRATE 30 ML CUP PO SCH ×2 (09:55→21:28)
[2016-05-09] MEDS: MULTIVITAMINS 5 ML CUP GTB SCH (09:55)
[2016-05-09] MEDS: LEVETIRACETAM (100 MG/ML) 5ML CUP GTB SCH ×2 (09:55→21:28)
[2016-05-09] MEDS: VORICONAZOLE 200 MG TAB PO SCH ×2 (09:55→21:27)
[2016-05-09] MEDS: ASCORBIC ACID 500 MG TAB PO SCH (09:55)
[2016-05-09] MEDS: FAMOTIDINE 20 MG TAB PO SCH (09:55)
[2016-05-09] MEDS: SENNA TAB GTB SCH (09:55)
[2016-05-09] MEDS: MEROPENEM 500 MG in SOD CHLORIDE 0.9% 100 ML IVPB SCH (09:56)
[2016-05-09] MEDS: LINEZOLID 600 MG/D5W (PMX) 300 ML IVPB SCH (09:56)
[2016-05-09] MEDS: COLLAGENASE 30 GM TUBE TOP SCH (09:57)
[2016-05-09] MEDS: ENOXAPARIN 100 MG/ML SYG SC SCH (09:58)
[2016-05-09 11:10] LABS: EOSINOPHILS # 0.4 10^3/ul (0.0-0.5); EOSINOPHILS % 2.8 % (0.0-7.0); HEMATOCRIT 22.9 % (37.0-47.0); HEMOGLOBIN 7.7 g/dl (12.0-16.0); LYMPHOCYTES # 1.4 10^3/ul (0.8-2.9); LYMPHOCYTES % 10.6 % (15.0-51.0); MEAN CORPUSCULAR HGB CONC 33.6 g/dl (32.0-37.0); MEAN PLATELET VOLUME 8.7 fl (7.4-10.4); MONOCYTE # 0.6 10^3/ul (0.3-0.9); MONOCYTES % 4.3 % (0.0-11.0); NEUTROPHIL # 10.6 10^3/ul (1.6-7.5); NEUTROPHILS % 82.3 % (39.0-77.0); PLATELET COUNT 327 10^3/UL (140-440); RED BLOOD COUNT 2.57 10^6/ul (4.20-5.40); RED CELL DISTRIBUTION WIDTH 15.3 % (11.5-14.5); UNCORRECTED WBC 12.9 10^3/ul (4.8-10.8); WHITE BLOOD COUNT 12.9 10^3/ul (4.8-10.8)
--- NOTE | 2016-05-09 11:10 | PN ---
Date/Time of Note Date/Time of Note DATE: 05/09/16 TIME: 10:58 Assessment/Plan VTE Prophylaxis VTE Prophylaxis Intervention: SCD's Lines/Catheters IV Catheter Type (from Nrsg): Mid Line Urinary Cath still in place: Yes Reason Cath still needed: other (indicate) Assessment/Plan Chief Complaint/Hosp Course ASSESSMENT AND PLAN: 1. Sepsis, likely secondary to urinary tract infection versus sacral decubitus. The patient has been started on vancomycin, meropenem, flagyl, Linezolid and V.fend as per ID recommendations . Follow up infectious disease recommendations. We'll continue monitor patient blood pressure, off pressors at this time 2. Acute on chronic respiratory failure, Ventilator-dependent respiratory failure, status post trach. Pulmonology has been consulted. 3. Acute renal insufficiency, likely secondary to sepsis versus dehydration. nephrology consulted. Continue IV fluids. 4. Diabetes mellitus. Continue sliding scale and Lantus. 5. History of cerebrovascular accident. No acute issues at this time. Patient is bed bound and a phasic 6. Dyslipidemia. Continue Lipitor. 7. Electrolyte imbalance , nephrology following 8. Essential Hypertension, continue to monitor restart blood pressure medications cautiously 9. C. difficile toxin, continue Flagyl 10. Hypokalemia, repleted We will continue monitor patient closely for recommendation management treatment as per clinical course Condition guarded Continue to monitor in telemetry floor Plan to discharge to assisted facility tomorrow 05/10/2016 Discharge/transfer antibiotics as per infectious disease Problems: Subjective 24 Hr Interval Summary Free Text/Dictation No acute changes Patient tolerating PEG tube feeding Exam/Review of Systems Vital Signs Vitals Vital Signs Date Time Temp Pulse Resp B/P Pulse Ox O2 Delivery O2 Flow Rate FiO2 05/09/16 08:45 93 25 100 40 05/09/16 07:44 98.8 107/69 05/09/16 04:00 Mechanical Ventilator Intake and Output 05/08/16 05/08/16 05/09/16 15:00 23:00 07:00 Intake Total 35 ml 480 ml 540 ml Output Total 200 ml 1020 ml 900 ml Balance -165 ml -540 ml -360 ml Exam General: The patient is a phasic, on vent via trach, does not respond to any pain or verbal stimuli HEENT: Atraumatic, normocephalic. The pupils are equal Neck: Supple , trach in place Chest: Normal Lungs: Decreased breath sounds bilateral lower lung field, positive crackles Heart: Normal S1-S2, Regular rhythm and rate. Abdomen: Soft , nontender, nondistended , bowel sounds are present. PEG tube in place Extremities: Flaccid, + 2 edema no cyanosis Neurologic: No meaningful neurologic examination findings Skin: Stage IV sacral decubitus Results Result Diagram: 05/08/16 04205/08/16 042 Results 24 hrs Laboratory Tests Test 05/08/16 11:25 05/08/16 18:21 05/08/16 20:25 05/09/16 04:41 Bedside Glucose 220 213 203 228 H Medications Medications Current Medications Acetaminophen/ Hydrocodone Bitart ([place] (5/325)) 1 tab Q6H PRN PO MODERATE PAIN LEVEL 4-6; Start 05/04/16 at 07:30 Morphine Sulfate (morphine) 2 mg Q4H PRN IV SEVERE PAIN LEVEL 7-10 Last administered on 05/07/16at 18:26; Admin Dose 2 MG; Start 05/04/16 at 07:30 Docusate Sodium (Colace) 100 mg Q12H PRN PO CONSTIPATION; Start 05/04/16 at 07 :30 Magnesium Hydroxide (Milk Of Mag) 30 ml DAILY PRN PO CONSTIPATION; Start 05/04 at 07:30 Ondansetron HCl (Zofran Inj) 4 mg Q6H PRN IV NAUSEA AND/OR VOMITING Last administered on 05/05/16at 17:56; Admin Dose 4 MG; Start 05/04/16 at 07:30 Lorazepam (Ativan) 0.5 mg Q6H PRN IV ANXIETY Last administered on 05/06/16at 23 :58; Admin Dose 0.5 MG; Start 05/04/16 at 07:30 Hydralazine HCl (Apresoline) 10 mg Q6H PRN IV ELEVATED BLOOD PRESSURE; Start 05/04/16 at 07:30 Nitroglycerin (Nitroglycerin (Sl Tab) 0.4 Mg) 1 tab Q5M PRN SL ANGINA; Start 05/04/16 at 07:30 Acetaminophen (Tylenol Supp) 650 mg Q4 PRN [place] PAIN OR TEMP ABOVE 38C; Start at 07:30 Ascorbic Acid (Vitamin C) 500 mg DAILY PO Last administered on 05/09/16at 09:55 ; Admin Dose 500 MG; Start 05/04/16 at 09:00 Atorvastatin Calcium (Lipitor) 20 mg QHS GTB Last administered on 05/08/16at 20 :24; Admin Dose 20 MG; Start 05/04/16 at 21:00 Bisacodyl (Dulcolax Supp) 10 mg Q24H PRN [place] CONSTIPATION; Start 05/04/16 at 07 :30 Clonidine (Catapres) 0.1 mg Q6 PO Last administered on 05/09/16at 00:14; Admin Dose 0.1 MG; Start 05/04/16 at 12:00 Famotidine (Pepcid) 20 mg DAILY PO Last administered on 05/09/16 09:55; Admin Dose 20 MG; Start 05/04/16 at 09:00 Hydralazine HCl (Apresoline) 25 mg Q6 PO Last administered on 05/09/16at 00:28 ; Admin Dose 25 MG; Start 05/04/16 at 12:00 Levetiracetam (Keppra Liquid) 1,000 mg Q12 GTB Last administered on 05/09/16 09:55; Admin Dose 1,000 MG; Start 05/04/16 at 09:00 Senna (Senokot) 2 tab DAILY GTB Last administered on 05/09/16 09:55; Admin Dose 2 TAB; Start 05/04/16 at 09:00 Multivitamins (Thera-Plus) 5 ml DAILY GTB Last administered on 05/09/16 09:55 ; Admin Dose 5 ML; Start 05/04/16 at 09:00 Miscellaneous Information 1 ea NOTE XX ; Start 05/04/16 at 09:00 Glucose (Glutose) 15 gm Q15M PRN PO DECREASED GLUCOSE; Start 05/04/16 at 09:00 Glucose (Glutose) 22.5 gm Q15M PRN PO DECREASED GLUCOSE; Start 05/04/16 at 09: 00 Dextrose (D50w Syringe) 25 ml Q15M PRN IV DECREASED GLUCOSE; Start 05/04/16 at 09:00 Dextrose (D50w Syringe) 50 ml Q15M PRN IV DECREASED GLUCOSE; Start 05/04/16 at 09:00 Glucagon (Glucagen) 1 mg Q15M PRN IM DECREASED GLUCOSE; Start 05/04/16 at 09: 00 Glucose (Glutose) 15 gm Q15M PRN BUCCAL DECREASED GLUCOSE; Start 05/04/16 at 09:00 Acetaminophen (Tylenol Liquid) 650 mg Q6H PRN GTB PAIN LEVEL 1-3 OR FEVER Last administered on 05/05/16at 21:37; Admin Dose 650 MG; Start 05/04/16 at 18:30 Enoxaparin Sodium (Lovenox) 90 mg Q24H SC Last administered on 05/09/16 09:58 ; Admin Dose 90 MG; Start 05/05/16 at 10:00 Voriconazole (Vfend) 200 mg BID PO Last administered on 05/09/16 09:55; Admin Dose 200 MG; Start 05/05/16 at 12:00 Vancomycin HCl (Vancomycin Oral Syringe) 250 mg Q6 PO Last administered on 06:07; Admin Dose 250 MG; Start 05/05/16 at 12:00 Metronidazole 500 mg 500 mg Q8 GTB Last administered on 05/09/16at 06:07; Admin Dose 500 MG; Start 05/05/16 at 14:00 Phenylephrine HCl 40 mg/Dextrose 500 ml @ 75 mls/hr TITRATE IV Last administered on 05/06/16at 21:52; Admin Dose 16.5 MLS/HR; Start 05/05/16 at 15: 00 Linezolid 300 ml @ 300 mls/hr Q12 IVPB Last administered on 05/09/16 09:56; Admin Dose 300 MLS/HR; Start 05/06/16 at 16:40 Meropenem/Sodium Chloride (Merrem/NS) 100 ml @ 200 mls/hr Q12 IVPB Last administered on 05/09/16at 09:56; Admin Dose 200 MLS/HR; Start 05/06/16 at 15: 40 Collagenase (Santyl) APPLY TO NECROTIC TISSUE DAILY TOP Last administered on at 09:57; Admin Dose 1 APPLIC; Start 05/06/16 at 16:30 Collagenase (Santyl) APPLY TO NECROTIC AREA PRN PRN TOP SOILING; Start at 16:00 Insulin Glargine (Lantus) 10 unit QPM SC Last administered on 05/08/16at 20:32 ; Admin Dose 10 UNIT; Start 05/07/16 at 21:00 Citric Acid/ Sodium Citrate (Bicitra) 30 ml BID PO Last administered on at 09:55; Admin Dose 30 ML; Start 05/07/16 at 21:00 Insulin Aspart NOVOLOG *MODERATE* ALGORITHM Q6 SC ; Start 05/09/16 at 12:00 Potassium Chloride/Sodium Chloride (KCl/NS) 110 ml @ 55 mls/hr ONCE ONCE IVPB ; Start 05/09/16 at 11:00; Stop 05/09/16 at 12:59; Status AMY MARIE MD May 09, 2016 11:09
[2016-05-09 11:20] LABS: CONDITION 1; LH ANALYZER COMMENTS 1; POTASSIUM 3.5 mmol/L (3.5-5.1)
[2016-05-09 11:23] LABS: CREATININE 2.11 mg/dl (0.44-1.00)
[2016-05-09 11:24] LABS: CALCIUM 7.6 mg/dl (8.4-10.2)
[2016-05-09] MEDS ORDERED: POTASSIUM CHLORIDE 20 MEQ in SOD CHLORIDE 0.9% 100 ML IVPB ONE (12:30)
[2016-05-09] MEDS: INSULIN ASPART [NOVOLOG] 3 ML PEN SC SCH ×2 (13:04→19:06)
--- NOTE | 2016-05-09 15:18 | CONS ---
Date/Time of Note Date/Time of Note DATE: 05/09/16 TIME: 15:17 Consult Date/Type/Reason Admit Date/Time May 04, 2016 at 05:51 Type of Consultation: pulmonary Subjective Patient remains somnolent on mechanical ventilation Objective Vital Signs Date Time Temp Pulse Resp B/P Pulse Ox O2 Delivery O2 Flow Rate FiO2 05/09/16 15:09 100.2 85 15 102/53 100 05/09/16 13:08 40 05/09/16 04:00 Mechanical Ventilator Intake and Output 05/08/16 05/08/16 05/09/16 14:59 22:59 06:59 Intake Total 30 ml 380 ml 675 ml Output Total 40 ml 1180 ml 940 ml Balance -10 ml -800 ml -265 ml PHYSICAL EXAMINATION: GENERAL: Chronically ill appearing lady on mechanical ventilation, appears comfortable at rest VITAL SIGNS: As above. NECK: Supple. No JVD or lymphadenopathy. HEENT: Trach site clean and intact. CARDIAC: S1, S2, no added sounds or murmurs. CHEST: Diminished air entry bilaterally. ABDOMEN: Soft, nontender. No guarding or rebound. EXTREMITIES: No cyanosis, clubbing, edema +2 NEUROLOGIC: Unable to assess. Results/Medications Result Diagram: 05/09/16 1005 05/09/16 1005 Results 24 hrs Laboratory Tests Test 05/08/16 18:21 05/08/16 20:25 05/09/16 04:41 05/09/16 10:05 Bedside Glucose 213 203 228 H Anion Gap 16 Basophils # 0.0 Basophils % 0.0 Blood Morphology Comment Blood Urea Nitrogen 65 H Calcium Level 7.6 L Carbon Dioxide Level 19 L Chloride Level 115 H Creatinine 2.11 H Eosinophils # 0.4 Eosinophils % 2.8 Glucose Level 223 H Hematocrit 22.9 L Hemoglobin 7.7 L Lymphocytes # 1.4 Lymphocytes % 10.6 L Mean Corpuscular Hemoglobin 30.0 Mean Corpuscular Hemoglobin Concent 33.6 Mean Corpuscular Volume 89.0 Mean Platelet Volume 8.7 Monocytes # 0.6 Monocytes % 4.3 Neutrophils # 10.6 H Neutrophils % 82.3 H Nucleated Red Blood Cells # 0.0 Nucleated Red Blood Cells % 0.0 Platelet Count 327 Potassium Level 3.5 Red Blood Count 2.57 L Red Cell Distribution Width 15.3 H Sodium Level 146 H White Blood Count 12.9 H Test 05/09/16 12:48 Bedside Glucose 286 H Medications Current Medications Acetaminophen/ Hydrocodone Bitart ([place] (5/325)) 1 tab Q6H PRN PO MODERATE PAIN LEVEL 4-6; Start 05/04/16 at 07:30 Morphine Sulfate (morphine) 2 mg Q4H PRN IV SEVERE PAIN LEVEL 7-10 Last administered on 05/07/16at 18:26; Admin Dose 2 MG; Start 05/04/16 at 07:30 Docusate Sodium (Colace) 100 mg Q12H PRN PO CONSTIPATION; Start 05/04/16 at 07 :30 Magnesium Hydroxide (Milk Of Mag) 30 ml DAILY PRN PO CONSTIPATION; Start 05/04 at 07:30 Ondansetron HCl (Zofran Inj) 4 mg Q6H PRN IV NAUSEA AND/OR VOMITING Last administered on 05/05/16at 17:56; Admin Dose 4 MG; Start 05/04/16 at 07:30 Lorazepam (Ativan) 0.5 mg Q6H PRN IV ANXIETY Last administered on 05/06/16at 23 :58; Admin Dose 0.5 MG; Start 05/04/16 at 07:30 Hydralazine HCl (Apresoline) 10 mg Q6H PRN IV ELEVATED BLOOD PRESSURE; Start 05/04/16 at 07:30 Nitroglycerin (Nitroglycerin (Sl Tab) 0.4 Mg) 1 tab Q5M PRN SL ANGINA; Start 05/04/16 at 07:30 Acetaminophen (Tylenol Supp) 650 mg Q4 PRN [place] PAIN OR TEMP ABOVE 38C; Start at 07:30 Ascorbic Acid (Vitamin C) 500 mg DAILY PO Last administered on 05/09/16at 09:55 ; Admin Dose 500 MG; Start 05/04/16 at 09:00 Atorvastatin Calcium (Lipitor) 20 mg QHS GTB Last administered on 05/08/16at 20 :24; Admin Dose 20 MG; Start 05/04/16 at 21:00 Bisacodyl (Dulcolax Supp) 10 mg Q24H PRN [place] CONSTIPATION; Start 05/04/16 at 07 :30 Clonidine (Catapres) 0.1 mg Q6 PO Last administered on 05/09/16at 00:14; Admin Dose 0.1 MG; Start 05/04/16 at 12:00 Famotidine (Pepcid) 20 mg DAILY PO Last administered on 05/09/16at 09:55; Admin Dose 20 MG; Start 05/04/16 at 09:00 Hydralazine HCl (Apresoline) 25 mg Q6 PO Last administered on 05/09/16at 00:28 ; Admin Dose 25 MG; Start 05/04/16 at 12:00 Levetiracetam (Keppra Liquid) 1,000 mg Q12 GTB Last administered on 05/09/16at 09:55; Admin Dose 1,000 MG; Start 05/04/16 at 09:00 Senna (Senokot) 2 tab DAILY GTB Last administered on 05/09/16at 09:55; Admin Dose 2 TAB; Start 05/04/16 at 09:00 Multivitamins (Thera-Plus) 5 ml DAILY GTB Last administered on 05/09/16 09:55 ; Admin Dose 5 ML; Start 05/04/16 at 09:00 Miscellaneous Information 1 ea NOTE XX ; Start 05/04/16 at 09:00 Glucose (Glutose) 15 gm Q15M PRN PO DECREASED GLUCOSE; Start 05/04/16 at 09:00 Glucose (Glutose) 22.5 gm Q15M PRN PO DECREASED GLUCOSE; Start 05/04/16 at 09: 00 Dextrose (D50w Syringe) 25 ml Q15M PRN IV DECREASED GLUCOSE; Start 05/04/16 at 09:00 Dextrose (D50w Syringe) 50 ml Q15M PRN IV DECREASED GLUCOSE; Start 05/04/16 at 09:00 Glucagon (Glucagen) 1 mg Q15M PRN IM DECREASED GLUCOSE; Start 05/04/16 at 09: 00 Glucose (Glutose) 15 gm Q15M PRN BUCCAL DECREASED GLUCOSE; Start 05/04/16 at 09:00 Acetaminophen (Tylenol Liquid) 650 mg Q6H PRN GTB PAIN LEVEL 1-3 OR FEVER Last administered on 05/05/16at 21:37; Admin Dose 650 MG; Start 05/04/16 at 18:30 Voriconazole (Vfend) 200 mg BID PO Last administered on 05/09/16at 09:55; Admin Dose 200 MG; Start 05/05/16 at 12:00 Vancomycin HCl (Vancomycin Oral Syringe) 250 mg Q6 PO Last administered on 13:36; Admin Dose 250 MG; Start 05/05/16 at 12:00 Metronidazole 500 mg 500 mg Q8 GTB Last administered on 05/09/16 06:07; Admin Dose 500 MG; Start 05/05/16 at 14:00 Phenylephrine HCl 40 mg/Dextrose 500 ml @ 75 mls/hr TITRATE IV Last administered on 05/06/16 21:52; Admin Dose 16.5 MLS/HR; Start 05/05/16 at 15: 00 Linezolid 300 ml @ 300 mls/hr Q12 IVPB Last administered on 05/09/16 09:56; Admin Dose 300 MLS/HR; Start 05/06/16 at 16:40 Meropenem/Sodium Chloride (Merrem/NS) 100 ml @ 200 mls/hr Q12 IVPB Last administered on 05/09/16 09:56; Admin Dose 200 MLS/HR; Start 05/06/16 at 15: 40 Collagenase (Santyl) APPLY TO NECROTIC TISSUE DAILY TOP Last administered on 09:57; Admin Dose 1 APPLIC; Start 05/06/16 at 16:30 Collagenase (Santyl) APPLY TO NECROTIC AREA PRN PRN TOP SOILING; Start at 16:00 Insulin Glargine (Lantus) 10 unit QPM SC Last administered on 05/08/16at 20:32 ; Admin Dose 10 UNIT; Start 05/07/16 at 21:00 Citric Acid/ Sodium Citrate (Bicitra) 30 ml BID PO Last administered on at 09:55; Admin Dose 30 ML; Start 05/07/16 at 21:00 Insulin Aspart (Novolog Insulin Pen) NOVOLOG *MODERATE* ALGORITHM Q6 SC Last administered on 05/09/16 13:04; Admin Dose 8 UNIT; Start 05/09/16 at 12:00 Aspirin (Aspirin) 81 mg DAILY GTB ; Start 05/10/16 at 09:00 Assessment/Plan Chief Complaint/Hosp Course IMPRESSION AND PLAN: 1. Status post Septic shock, likely secondary to urinary tract infection. 2. Chronic encephalopathy. 3. History of hemorrhagic cerebrovascular accident. 4. Vent dependent respiratory failure. 5. Severe metabolic acidosis. 6. Anemia likely of chronic disease plus hemodilution The patient will need: 1. Consider transfusion 1 unit packed red blood cells if patient is not for hospice 2. Volume resuscitation 3. Broad spectrum antibiotics. 4. Deep venous thrombosis and gastrointestinal prophylaxis. 5. IV bicarb. 6. Tube feeding as tolerated Prognosis very poor, consider palliative care eval Per nursing staff family conference scheduled for today Problems: JIMMY GONSALEZ MD, [facility] May 09, 2016 15:18
--- NOTE | 2016-05-09 16:53 | CONS ---
Date/Time of Note Date/Time of Note DATE: 05/09/16 TIME: 16:52 Assessment/Plan Assessment/Plan Chief Complaint/Hosp Course IMPRESSION: 1. Patient has [id number] kidney disease. 2. Acute renal failure due to dehydration. 3. Underlying acute tubular necrosis due to sepsis. 4. Severe sepsis. 5. hypernatremia. 6. Free water deficit. 7. Hypokalemia. 8. Lactic acidosis. 9. Normal alkaline phosphatase. 10. Anemia. 11. History of tracheostomy. 12 METABOLIC ACIDOSIS PLAN KCL CK LABS NAHCO3 BICITRA CK BMP Problems: Consultation Date/Type/Reason Admit Date/Time May 04, 2016 at 05:51 Type of Consultation: RENAL Exam/Review of Systems Vital Signs Vitals Vital Signs Date Time Temp Pulse Resp B/P Pulse Ox O2 Delivery O2 Flow Rate FiO2 05/09/16 16:25 88 05/09/16 15:54 21 100 40 05/09/16 15:09 100.2 102/53 05/09/16 04:00 Mechanical Ventilator Intake and Output 05/08/16 05/08/16 05/09/16 15:00 23:00 07:00 Intake Total 35 ml 480 ml 540 ml Output Total 200 ml 1020 ml 900 ml Balance -165 ml -540 ml -360 ml Exam Neck: supple Respiratory: clear to auscultation Cardiovascular: regular rate and rhythm Gastrointestinal: bowel sounds (+) Extremities: edema (+) Results Result Diagram: 05/09/16 1005 05/09/16 1005 Results 24 hrs Laboratory Tests Test 05/08/16 18:21 05/08/16 20:25 05/09/16 04:41 05/09/16 10:05 Bedside Glucose 213 203 228 H Anion Gap 16 Basophils # 0.0 Basophils % 0.0 Blood Morphology Comment Blood Urea Nitrogen 65 H Calcium Level 7.6 L Carbon Dioxide Level 19 L Chloride Level 115 H Creatinine 2.11 H Eosinophils # 0.4 Eosinophils % 2.8 Glucose Level 223 H Hematocrit 22.9 L Hemoglobin 7.7 L Lymphocytes # 1.4 Lymphocytes % 10.6 L Mean Corpuscular Hemoglobin 30.0 Mean Corpuscular Hemoglobin Concent 33.6 Mean Corpuscular Volume 89.0 Mean Platelet Volume 8.7 Monocytes # 0.6 Monocytes % 4.3 Neutrophils # 10.6 H Neutrophils % 82.3 H Nucleated Red Blood Cells # 0.0 Nucleated Red Blood Cells % 0.0 Platelet Count 327 Potassium Level 3.5 Red Blood Count 2.57 L Red Cell Distribution Width 15.3 H Sodium Level 146 H White Blood Count 12.9 H Test 05/09/16 12:48 Bedside Glucose 286 H Medications Medications Current Medications Acetaminophen/ Hydrocodone Bitart ([place] (5/325)) 1 tab Q6H PRN PO MODERATE PAIN LEVEL 4-6; Start 05/04/16 at 07:30 Morphine Sulfate (morphine) 2 mg Q4H PRN IV SEVERE PAIN LEVEL 7-10 Last administered on 05/07/16at 18:26; Admin Dose 2 MG; Start 05/04/16 at 07:30 Docusate Sodium (Colace) 100 mg Q12H PRN PO CONSTIPATION; Start 05/04/16 at 07 :30 Magnesium Hydroxide (Milk Of Mag) 30 ml DAILY PRN PO CONSTIPATION; Start 05/04 at 07:30 Ondansetron HCl (Zofran Inj) 4 mg Q6H PRN IV NAUSEA AND/OR VOMITING Last administered on 05/05/16at 17:56; Admin Dose 4 MG; Start 05/04/16 at 07:30 Lorazepam (Ativan) 0.5 mg Q6H PRN IV ANXIETY Last administered on 05/06/16at 23 :58; Admin Dose 0.5 MG; Start 05/04/16 at 07:30 Hydralazine HCl (Apresoline) 10 mg Q6H PRN IV ELEVATED BLOOD PRESSURE; Start 05/04/16 at 07:30 Nitroglycerin (Nitroglycerin (Sl Tab) 0.4 Mg) 1 tab Q5M PRN SL ANGINA; Start 05/04/16 at 07:30 Acetaminophen (Tylenol Supp) 650 mg Q4 PRN [place] PAIN OR TEMP ABOVE 38C; Start at 07:30 Ascorbic Acid (Vitamin C) 500 mg DAILY PO Last administered on 05/09/16at 09:55 ; Admin Dose 500 MG; Start 05/04/16 at 09:00 Atorvastatin Calcium (Lipitor) 20 mg QHS GTB Last administered on 05/08/16at 20 :24; Admin Dose 20 MG; Start 05/04/16 at 21:00 Bisacodyl (Dulcolax Supp) 10 mg Q24H PRN [place] CONSTIPATION; Start 05/04/16 at 07 :30 Clonidine (Catapres) 0.1 mg Q6 PO Last administered on 05/09/16at 00:14; Admin Dose 0.1 MG; Start 05/04/16 at 12:00 Famotidine (Pepcid) 20 mg DAILY PO Last administered on 05/09/16at 09:55; Admin Dose 20 MG; Start 05/04/16 at 09:00 Hydralazine HCl (Apresoline) 25 mg Q6 PO Last administered on 05/09/16at 00:28 ; Admin Dose 25 MG; Start 05/04/16 at 12:00 Levetiracetam (Keppra Liquid) 1,000 mg Q12 GTB Last administered on 05/09/16 09:55; Admin Dose 1,000 MG; Start 05/04/16 at 09:00 Senna (Senokot) 2 tab DAILY GTB Last administered on 05/09/16at 09:55; Admin Dose 2 TAB; Start 05/04/16 at 09:00 Multivitamins (Thera-Plus) 5 ml DAILY GTB Last administered on 05/09/16 09:55 ; Admin Dose 5 ML; Start 05/04/16 at 09:00 Miscellaneous Information 1 ea NOTE XX ; Start 05/04/16 at 09:00 Glucose (Glutose) 15 gm Q15M PRN PO DECREASED GLUCOSE; Start 05/04/16 at 09:00 Glucose (Glutose) 22.5 gm Q15M PRN PO DECREASED GLUCOSE; Start 05/04/16 at 09: 00 Dextrose (D50w Syringe) 25 ml Q15M PRN IV DECREASED GLUCOSE; Start 05/04/16 at 09:00 Dextrose (D50w Syringe) 50 ml Q15M PRN IV DECREASED GLUCOSE; Start 05/04/16 at 09:00 Glucagon (Glucagen) 1 mg Q15M PRN IM DECREASED GLUCOSE; Start 05/04/16 at 09: 00 Glucose (Glutose) 15 gm Q15M PRN BUCCAL DECREASED GLUCOSE; Start 05/04/16 at 09:00 Acetaminophen (Tylenol Liquid) 650 mg Q6H PRN GTB PAIN LEVEL 1-3 OR FEVER Last administered on 05/05/16at 21:37; Admin Dose 650 MG; Start 05/04/16 at 18:30 Voriconazole (Vfend) 200 mg BID PO Last administered on 05/09/16 09:55; Admin Dose 200 MG; Start 05/05/16 at 12:00 Vancomycin HCl (Vancomycin Oral Syringe) 250 mg Q6 PO Last administered on 13:36; Admin Dose 250 MG; Start 05/05/16 at 12:00 Metronidazole 500 mg 500 mg Q8 GTB Last administered on 05/09/16 15:18; Admin Dose 500 MG; Start 05/05/16 at 14:00 Phenylephrine HCl 40 mg/Dextrose 500 ml @ 75 mls/hr TITRATE IV Last administered on 05/06/16 21:52; Admin Dose 16.5 MLS/HR; Start 05/05/16 at 15: 00 Linezolid 300 ml @ 300 mls/hr Q12 IVPB Last administered on 05/09/16 09:56; Admin Dose 300 MLS/HR; Start 05/06/16 at 16:40 Meropenem/Sodium Chloride (Merrem/NS) 100 ml @ 200 mls/hr Q12 IVPB Last administered on 05/09/16 09:56; Admin Dose 200 MLS/HR; Start 05/06/16 at 15: 40 Collagenase (Santyl) APPLY TO NECROTIC TISSUE DAILY TOP Last administered on 09:57; Admin Dose 1 APPLIC; Start 05/06/16 at 16:30 Collagenase (Santyl) APPLY TO NECROTIC AREA PRN PRN TOP SOILING; Start at 16:00 Insulin Glargine (Lantus) 10 unit QPM SC Last administered on 05/08/16at 20:32 ; Admin Dose 10 UNIT; Start 05/07/16 at 21:00 Citric Acid/ Sodium Citrate (Bicitra) 30 ml BID PO Last administered on 09:55; Admin Dose 30 ML; Start 05/07/16 at 21:00 Insulin Aspart (Novolog Insulin Pen) NOVOLOG *MODERATE* ALGORITHM Q6 SC Last administered on 05/09/16 13:04; Admin Dose 8 UNIT; Start 05/09/16 at 12:00 Aspirin (Aspirin) 81 mg DAILY GTB ; Start 05/10/16 at 09:00 AMBER LIEBERMAN MD May 09, 2016 16:53
--- NOTE | 2016-05-09 17:03 | CONS ---
Date/Time of Note Date/Time of Note DATE: 05/09/16 TIME: 16:44 Assessment/Plan Assessment/Plan Chief Complaint/Hosp Course ID PROGRESS NOTE 24H INTERVAL SUMMARY * Chronic encephalopathic, eyes open, non-tracking, Trach->Vent, * Transferred out of ICU to [facility] - sepsis resolved, still with low grade temps * Large sacrococcygeal decub IV possible osteomyelitis, does not appear wound cultures have been ordered * LABORATORY: WBC down trending * INDWELLINGS: Trach, PEG, Reynolds, WEATHERIZATION TECHNICIAN shunt. Specimen: [id number] Status: Resulted Griselda: 05/06/16 Rcvd: 05/07 Source: [facility] Sp Descrip: Microbiology GRAM STAIN Final POLYMORPH. LEUKOCYTE RARE GRAM POS COCCI IN PAIRS 2+ GRAM POSITIVE RODS RARE GRAM NEGATIVE RODS 3+ YEAST 1+ WOUND CULTURE Preliminary Organism 1 KLEB PNEUMONIAE CARBAPENEMASE QUANTITY 3+ . MULTI DRUG RESISTANT ORGANISM Organism 2 GRAM NEGATIVE RASHAD QUANTITY 2+ PHONED TO GABY,TEL, LASHELL,PHARM, AND A COPY TO AT 1109 05/09/2016 BY JV. BACA PNEUM M.I.C. RX --------- --- AMIKACIN >64 R CEFAZOLIN R CEFOTAXIME R CEFTAZIDIME >=64 R CIPROFLOXACIN >=4 R GENTAMICIN >=16 R IMIPENEM 8 R LEVOFLOXACIN >=8 R TOBRAMYCIN >=16 R TRIMETHOPRIM/SULFAMETHOXAZOLE >=320 R PIPERACILLIN/TAZOBACTAM >=128 R ANTIMICROBIALS: 1. Voriconazole. 2. Zyvox. 3. Merrem. 4. Flagyl. 5. Oral vancomycin. PHYSICAL EXAMINATION: GENERAL: 46 yo chronic encephalopathic, eyes open, non-tracking, non- communicative HEENT: Unremarkable, oral secretions require suction NECK: Supple. Tracheostomy present. CHEST: Rise symmetrical. HEART: NSR on tele ABDOMEN: Soft, Peg EXTREMITIES: Without cyanosis/atrophy ID ASSESSMENT: 1. Severe sepsis with shock. 2. Clostridium difficile colitis. 3. Unstageable sacral decubitus, possible osteomyelitis with a history of multiple debridements. 4. 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 5. Seizure disorder. 6. Chronic encephalopathy. 7. Urinary tract infection with culture grew Deyanira glabrata. (-)MRSA Nares Screen CURRENT ABX START TODAY: Tygacil, Flagy PO/GT, Vfend ID PLAN: 1. Dr. Victoria was asked to review the multiple ABX onboard: Will consolidate ABX 2. DC Zyvox, Merrem (CRKP is resistant), Vanco PO => Replace with TYGACIL * Tygacil will treat CRE, VRE, MRSA, C.Diff, and most GNR except does not treat PSAR 3. Continue VFEND today is day #4 for poly-yeast UTI - Off load yeast from perineum w/Vag suppository 4. Continue Flagy PO/GT until diarrhea resolves. 5. F/U GNR#2 Sacral Wound cx pending = if (+)PSAR will need to consider additional ABX coverage. . . Problems: Consultation Date/Type/Reason Admit Date/Time May 04, 2016 at 05:51 Type of Consultation: ID Exam/Review of Systems Vital Signs Vitals Vital Signs Date Time Temp Pulse Resp B/P Pulse Ox O2 Delivery O2 Flow Rate FiO2 05/09/16 16:25 88 05/09/16 15:54 21 100 40 05/09/16 15:09 100.2 102/53 05/09/16 04:00 Mechanical Ventilator Intake and Output 05/08/16 05/08/16 05/09/16 15:00 23:00 07:00 Intake Total 35 ml 480 ml 540 ml Output Total 200 ml 1020 ml 900 ml Balance -165 ml -540 ml -360 ml Results Result Diagram: 05/09/16 1005 05/09/16 1005 Results 24 hrs Laboratory Tests Test 05/08/16 18:21 05/08/16 20:25 05/09/16 04:41 05/09/16 10:05 Bedside Glucose 213 203 228 H Anion Gap 16 Basophils # 0.0 Basophils % 0.0 Blood Morphology Comment Blood Urea Nitrogen 65 H Calcium Level 7.6 L Carbon Dioxide Level 19 L Chloride Level 115 H Creatinine 2.11 H Eosinophils # 0.4 Eosinophils % 2.8 Glucose Level 223 H Hematocrit 22.9 L Hemoglobin 7.7 L Lymphocytes # 1.4 Lymphocytes % 10.6 L Mean Corpuscular Hemoglobin 30.0 Mean Corpuscular Hemoglobin Concent 33.6 Mean Corpuscular Volume 89.0 Mean Platelet Volume 8.7 Monocytes # 0.6 Monocytes % 4.3 Neutrophils # 10.6 H Neutrophils % 82.3 H Nucleated Red Blood Cells # 0.0 Nucleated Red Blood Cells % 0.0 Platelet Count 327 Potassium Level 3.5 Red Blood Count 2.57 L Red Cell Distribution Width 15.3 H Sodium Level 146 H White Blood Count 12.9 H Test 05/09/16 12:48 Bedside Glucose 286 H Medications Medications Current Medications Acetaminophen/ Hydrocodone Bitart ([place] (5/325)) 1 tab Q6H PRN PO MODERATE PAIN LEVEL 4-6; Start 05/04/16 at 07:30 Morphine Sulfate (morphine) 2 mg Q4H PRN IV SEVERE PAIN LEVEL 7-10 Last administered on 05/07/16at 18:26; Admin Dose 2 MG; Start 05/04/16 at 07:30 Docusate Sodium (Colace) 100 mg Q12H PRN PO CONSTIPATION; Start 05/04/16 at 07 :30 Magnesium Hydroxide (Milk Of Mag) 30 ml DAILY PRN PO CONSTIPATION; Start 05/04 at 07:30 Ondansetron HCl (Zofran Inj) 4 mg Q6H PRN IV NAUSEA AND/OR VOMITING Last administered on 05/05/16at 17:56; Admin Dose 4 MG; Start 05/04/16 at 07:30 Lorazepam (Ativan) 0.5 mg Q6H PRN IV ANXIETY Last administered on 05/06/16at 23 :58; Admin Dose 0.5 MG; Start 05/04/16 at 07:30 Hydralazine HCl (Apresoline) 10 mg Q6H PRN IV ELEVATED BLOOD PRESSURE; Start 05/04/16 at 07:30 Nitroglycerin (Nitroglycerin (Sl Tab) 0.4 Mg) 1 tab Q5M PRN SL ANGINA; Start 05/04/16 at 07:30 Acetaminophen (Tylenol Supp) 650 mg Q4 PRN [place] PAIN OR TEMP ABOVE 38C; Start at 07:30 Ascorbic Acid (Vitamin C) 500 mg DAILY PO Last administered on 05/09/16at 09:55 ; Admin Dose 500 MG; Start 05/04/16 at 09:00 Atorvastatin Calcium (Lipitor) 20 mg QHS GTB Last administered on 05/08/16at 20 :24; Admin Dose 20 MG; Start 05/04/16 at 21:00 Bisacodyl (Dulcolax Supp) 10 mg Q24H PRN [place] CONSTIPATION; Start 05/04/16 at 07 :30 Clonidine (Catapres) 0.1 mg Q6 PO Last administered on 05/09/16at 00:14; Admin Dose 0.1 MG; Start 05/04/16 at 12:00 Famotidine (Pepcid) 20 mg DAILY PO Last administered on 05/09/16at 09:55; Admin Dose 20 MG; Start 05/04/16 at 09:00 Hydralazine HCl (Apresoline) 25 mg Q6 PO Last administered on 05/09/16at 00:28 ; Admin Dose 25 MG; Start 05/04/16 at 12:00 Levetiracetam (Keppra Liquid) 1,000 mg Q12 GTB Last administered on 05/09/16at 09:55; Admin Dose 1,000 MG; Start 05/04/16 at 09:00 Senna (Senokot) 2 tab DAILY GTB Last administered on 05/09/16at 09:55; Admin Dose 2 TAB; Start 05/04/16 at 09:00 Multivitamins (Thera-Plus) 5 ml DAILY GTB Last administered on 05/09/16at 09:55 ; Admin Dose 5 ML; Start 05/04/16 at 09:00 Miscellaneous Information 1 ea NOTE XX ; Start 05/04/16 at 09:00 Glucose (Glutose) 15 gm Q15M PRN PO DECREASED GLUCOSE; Start 05/04/16 at 09:00 Glucose (Glutose) 22.5 gm Q15M PRN PO DECREASED GLUCOSE; Start 05/04/16 at 09: 00 Dextrose (D50w Syringe) 25 ml Q15M PRN IV DECREASED GLUCOSE; Start 05/04/16 at 09:00 Dextrose (D50w Syringe) 50 ml Q15M PRN IV DECREASED GLUCOSE; Start 05/04/16 at 09:00 Glucagon (Glucagen) 1 mg Q15M PRN IM DECREASED GLUCOSE; Start 05/04/16 at 09: 00 Glucose (Glutose) 15 gm Q15M PRN BUCCAL DECREASED GLUCOSE; Start 05/04/16 at 09:00 Acetaminophen (Tylenol Liquid) 650 mg Q6H PRN GTB PAIN LEVEL 1-3 OR FEVER Last administered on 05/05/16at 21:37; Admin Dose 650 MG; Start 05/04/16 at 18:30 Voriconazole (Vfend) 200 mg BID PO Last administered on 05/09/16 09:55; Admin Dose 200 MG; Start 05/05/16 at 12:00 Vancomycin HCl (Vancomycin Oral Syringe) 250 mg Q6 PO Last administered on 13:36; Admin Dose 250 MG; Start 05/05/16 at 12:00 Metronidazole 500 mg 500 mg Q8 GTB Last administered on 05/09/16at 15:18; Admin Dose 500 MG; Start 05/05/16 at 14:00 Phenylephrine HCl 40 mg/Dextrose 500 ml @ 75 mls/hr TITRATE IV Last administered on 05/06/16at 21:52; Admin Dose 16.5 MLS/HR; Start 05/05/16 at 15: 00 Linezolid 300 ml @ 300 mls/hr Q12 IVPB Last administered on 05/09/16 09:56; Admin Dose 300 MLS/HR; Start 05/06/16 at 16:40 Meropenem/Sodium Chloride (Merrem/NS) 100 ml @ 200 mls/hr Q12 IVPB Last administered on 05/09/16at 09:56; Admin Dose 200 MLS/HR; Start 05/06/16 at 15: 40 Collagenase (Santyl) APPLY TO NECROTIC TISSUE DAILY TOP Last administered on at 09:57; Admin Dose 1 APPLIC; Start 05/06/16 at 16:30 Collagenase (Santyl) APPLY TO NECROTIC AREA PRN PRN TOP SOILING; Start at 16:00 Insulin Glargine (Lantus) 10 unit QPM SC Last administered on 05/08/16at 20:32 ; Admin Dose 10 UNIT; Start 05/07/16 at 21:00 Citric Acid/ Sodium Citrate (Bicitra) 30 ml BID PO Last administered on at 09:55; Admin Dose 30 ML; Start 05/07/16 at 21:00 Insulin Aspart (Novolog Insulin Pen) NOVOLOG *MODERATE* ALGORITHM Q6 SC Last administered on 05/09/16at 13:04; Admin Dose 8 UNIT; Start 05/09/16 at 12:00 Aspirin (Aspirin) 81 mg DAILY GTB ; Start 05/10/16 at 09:00 MAURA COX NP May 09, 2016 16:54
[2016-05-09] MEDS ORDERED: TIGECYCLINE 100 MG in SOD CHLORIDE 0.9% 100 ML IVPB ONE (18:00)
[2016-05-09] MEDS: ATORVASTATIN 20 MG TAB GTB SCH (21:27)
[2016-05-09] MEDS: MICONAZOLE 2% 45 GM VAG CR VAG SCH (21:28)
[2016-05-09] MEDS: INSULIN GLARGINE [LANtus] 3 ML PEN SC SCH (21:50)
[2016-05-10] VITALS (25 sets, daily range): BP systolic 90–118; BP diastolic 54–65; PULSE 80–89; RESP 15–30
[2016-05-10] MEDS: INSULIN ASPART [NOVOLOG] 3 ML PEN SC SCH ×5 (01:29→23:52)
[2016-05-10] MEDS: metroNIDAZOLE 500 MG TAB GTB SCH ×3 (06:05→22:39)
[2016-05-10] MEDS: TIGECYCLINE 50 MG in SOD CHLORIDE 0.9% 100 ML IVPB SCH ×2 (06:07→21:00)
[2016-05-10 09:16] LABS: EOSINOPHILS # 0.4 10^3/ul (0.0-0.5); EOSINOPHILS % 3.2 % (0.0-7.0); HEMATOCRIT 26.6 % (37.0-47.0); HEMOGLOBIN 8.9 g/dl (12.0-16.0); LYMPHOCYTES # 1.1 10^3/ul (0.8-2.9); LYMPHOCYTES % 8.7 % (15.0-51.0); MEAN CORPUSCULAR HEMOGLOBIN 29.9 pg (29.0-33.0); MEAN CORPUSCULAR HGB CONC 33.5 g/dl (32.0-37.0); MEAN CORPUSCULAR VOLUME 89.3 fl (82.0-101.0); MEAN PLATELET VOLUME 8.4 fl (7.4-10.4); MONOCYTE # 0.3 10^3/ul (0.3-0.9); MONOCYTES % 2.5 % (0.0-11.0); NEUTROPHIL # 10.9 10^3/ul (1.6-7.5); NEUTROPHILS % 85.6 % (39.0-77.0); PLATELET COUNT 299 10^3/UL (140-440); RED BLOOD COUNT 2.98 10^6/ul (4.20-5.40); RED CELL DISTRIBUTION WIDTH 15.8 % (11.5-14.5); UNCORRECTED WBC 12.8 10^3/ul (4.8-10.8); WHITE BLOOD COUNT 12.8 10^3/ul (4.8-10.8)
[2016-05-10 09:18] LABS: CONDITION 1; LH ANALYZER COMMENTS 1
[2016-05-10 09:35] LABS: POTASSIUM 3.4 mmol/L (3.5-5.1)
[2016-05-10 09:38] LABS: CALCIUM 7.3 mg/dl (8.4-10.2); CREATININE 1.8 mg/dl (0.44-1.00)
[2016-05-10] MEDS ORDERED: MAGNESIUM HYDROXIDE 30ML CUP GTB PRN (10:00)
[2016-05-10] MEDS: SENNA TAB GTB SCH (10:11)
[2016-05-10] MEDS: ASPIRIN 81 MG TAB GTB SCH (10:11)
[2016-05-10] MEDS: MULTIVITAMINS 5 ML CUP GTB SCH (10:12)
[2016-05-10] MEDS: LEVETIRACETAM (100 MG/ML) 5ML CUP GTB SCH ×2 (10:12→22:38)
[2016-05-10] MEDS: COLLAGENASE 30 GM TUBE TOP SCH (10:18)
[2016-05-10] MEDS: VORICONAZOLE 200 MG TAB GTB SCH ×2 (10:45→22:38)
[2016-05-10] MEDS: ASCORBIC ACID 500 MG TAB GTB SCH (10:45)
[2016-05-10] MEDS: CITRIC ACID/NA CITRATE 30 ML CUP GTB SCH ×2 (10:45→22:37)
[2016-05-10] MEDS: FAMOTIDINE 20 MG TAB GTB SCH (10:45)
--- NOTE | 2016-05-10 13:18 | PDOCDIS ---
Discharge Instructions CONDITION Patient Condition: Fair HOME CARE INSTRUCTIONS: Special Diet: G-tube feeding ACTIVITY: Activity Restrictions: Special Program AMY HANKINS MD May 10, 2016 13:18
[2016-05-10] MEDS ORDERED: HYDROCODONE/APAP (5/325) TAB GTB PRN (13:30)
--- NOTE | 2016-05-10 15:01 | CONS ---
Date/Time of Note Date/Time of Note DATE: 05/10/16 TIME: 14:59 Consult Date/Type/Reason Admit Date/Time May 04, 2016 at 05:51 Type of Consultation: pulmonary Subjective Patient's condition remains unchanged Objective Vital Signs Date Time Temp Pulse Resp B/P Pulse Ox O2 Delivery O2 Flow Rate FiO2 05/10/16 12:22 84 05/10/16 11:24 97.9 22 118/65 99 05/10/16 10:55 40 05/09/16 04:00 Mechanical Ventilator Intake and Output 05/09/16 05/09/16 05/10/16 15:00 23:00 07:00 Intake Total 650 ml 480 ml Output Total 650 ml 1050 ml Balance 0 ml -570 ml PHYSICAL EXAMINATION: GENERAL: Chronically ill appearing lady on mechanical ventilation, appears comfortable at rest VITAL SIGNS: As above. NECK: Supple. No JVD or lymphadenopathy. HEENT: Trach site clean and intact. CARDIAC: S1, S2, no added sounds or murmurs. CHEST: Diminished air entry bilaterally. ABDOMEN: Soft, nontender. No guarding or rebound. EXTREMITIES: No cyanosis, clubbing, edema +2 NEUROLOGIC: Unable to assess. Results/Medications Result Diagram: 05/10/16 0840 05/10/16 0840 Results 24 hrs Laboratory Tests Test 05/09/16 19:02 05/09/16 20:40 05/10/16 01:20 05/10/16 06:04 Bedside Glucose 212 206 181 180 Test 05/10/16 08:40 05/10/16 11:47 Anion Gap 14 Basophils # 0.0 Basophils % 0.0 Blood Morphology Comment Blood Urea Nitrogen 64 H Calcium Level 7.3 L Carbon Dioxide Level 20 L Chloride Level 117 H Creatinine 1.80 H Eosinophils # 0.4 Eosinophils % 3.2 Glucose Level 173 Hematocrit 26.6 L Hemoglobin 8.9 L Lymphocytes # 1.1 Lymphocytes % 8.7 L Mean Corpuscular Hemoglobin 29.9 Mean Corpuscular Hemoglobin Concent 33.5 Mean Corpuscular Volume 89.3 Mean Platelet Volume 8.4 Monocytes # 0.3 Monocytes % 2.5 Neutrophils # 10.9 H Neutrophils % 85.6 H Nucleated Red Blood Cells # 0.0 Nucleated Red Blood Cells % 0.0 Platelet Count 299 Potassium Level 3.4 L Red Blood Count 2.98 L Red Cell Distribution Width 15.8 H Sodium Level 148 H White Blood Count 12.8 H Bedside Glucose 196 Medications Current Medications Morphine Sulfate (morphine) 2 mg Q4H PRN IV SEVERE PAIN LEVEL 7-10 Last administered on 05/07/16 18:26; Admin Dose 2 MG; Start 05/04/16 at 07:30 Docusate Sodium (Colace) 100 mg Q12H PRN PO CONSTIPATION; Start 05/04/16 at 07 :30 Ondansetron HCl (Zofran Inj) 4 mg Q6H PRN IV NAUSEA AND/OR VOMITING Last administered on 05/05/16 17:56; Admin Dose 4 MG; Start 05/04/16 at 07:30 Lorazepam (Ativan) 0.5 mg Q6H PRN IV ANXIETY Last administered on 05/06/16 23 :58; Admin Dose 0.5 MG; Start 05/04/16 at 07:30 Hydralazine HCl (Apresoline) 10 mg Q6H PRN IV ELEVATED BLOOD PRESSURE; Start 05/04/16 at 07:30 Nitroglycerin (Nitroglycerin (Sl Tab) 0.4 Mg) 1 tab Q5M PRN SL ANGINA; Start 05/04/16 at 07:30 Acetaminophen (Tylenol Supp) 650 mg Q4 PRN [place] PAIN OR TEMP ABOVE 38C; Start at 07:30 Atorvastatin Calcium (Lipitor) 20 mg QHS GTB Last administered on 05/09/16at 21 :27; Admin Dose 20 MG; Start 05/04/16 at 21:00 Bisacodyl (Dulcolax Supp) 10 mg Q24H PRN [place] CONSTIPATION; Start 05/04/16 at 07 :30 Levetiracetam (Keppra Liquid) 1,000 mg Q12 GTB Last administered on 05/10/16at 10:12; Admin Dose 1,000 MG; Start 05/04/16 at 09:00 Senna (Senokot) 2 tab DAILY GTB Last administered on 05/10/16at 10:11; Admin Dose 2 TAB; Start 05/04/16 at 09:00 Multivitamins (Thera-Plus) 5 ml DAILY GTB Last administered on 05/10/16 10:12 ; Admin Dose 5 ML; Start 05/04/16 at 09:00 Miscellaneous Information 1 ea NOTE XX ; Start 05/04/16 at 09:00 Glucose (Glutose) 15 gm Q15M PRN PO DECREASED GLUCOSE; Start 05/04/16 at 09:00 Glucose (Glutose) 22.5 gm Q15M PRN PO DECREASED GLUCOSE; Start 05/04/16 at 09: 00 Dextrose (D50w Syringe) 25 ml Q15M PRN IV DECREASED GLUCOSE; Start 05/04/16 at 09:00 Dextrose (D50w Syringe) 50 ml Q15M PRN IV DECREASED GLUCOSE; Start 05/04/16 at 09:00 Glucagon (Glucagen) 1 mg Q15M PRN IM DECREASED GLUCOSE; Start 05/04/16 at 09: 00 Glucose (Glutose) 15 gm Q15M PRN BUCCAL DECREASED GLUCOSE; Start 05/04/16 at 09:00 Acetaminophen (Tylenol Liquid) 650 mg Q6H PRN GTB PAIN LEVEL 1-3 OR FEVER Last administered on 05/05/16at 21:37; Admin Dose 650 MG; Start 05/04/16 at 18:30 Metronidazole 500 mg 500 mg Q8 GTB Last administered on 05/10/16at 14:42; Admin Dose 500 MG; Start 05/05/16 at 14:00 Phenylephrine HCl/ Dextrose (Oli-Synephrine/ D5W) 500 ml @ 75 mls/hr TITRATE IV Last administered on 05/06/16at 21:52; Admin Dose 16.5 MLS/HR; Start at 15:00 Collagenase (Santyl) APPLY TO NECROTIC TISSUE DAILY TOP Last administered on at 10:18; Admin Dose 1 APPLIC; Start 05/06/16 at 16:30 Collagenase (Santyl) APPLY TO NECROTIC AREA PRN PRN TOP SOILING; Start at 16:00 Insulin Glargine (Lantus) 10 unit QPM SC Last administered on 05/09/16at 21:50 ; Admin Dose 10 UNIT; Start 05/07/16 at 21:00 Insulin Aspart (Novolog Insulin Pen) NOVOLOG *MODERATE* ALGORITHM Q6 SC Last administered on 05/10/16at 12:36; Admin Dose 4 UNIT; Start 05/09/16 at 12:00 Aspirin 81 mg 81 mg DAILY GTB Last administered on 05/10/16at 10:11; Admin Dose 81 MG; Start 05/10/16 at 09:00 Tigecycline/ Sodium Chloride (Tygacil/NS) 100 ml @ 200 mls/hr Q12 IVPB Last administered on 05/10/16 06:07; Admin Dose 200 MLS/HR; Start 05/10/16 at 06: 00 Miconazole Nitrate (Miconazole 2% Vag Cr) 1 applic HS VAG Last administered on 05/09/16 21:28; Admin Dose 1 APPLIC; Start 05/09/16 at 21:00; Stop 05/12/16 at 21:00 Ascorbic Acid (Vitamin C) 500 mg DAILY GTB Last administered on 05/10/16 10: 45; Admin Dose 500 MG; Start 05/10/16 at 11:00 Citric Acid/ Sodium Citrate (Bicitra) 30 ml BID GTB Last administered on 10:45; Admin Dose 30 ML; Start 05/10/16 at 11:00 Clonidine (Catapres) 0.1 mg Q6 GTB Last administered on 05/10/16at 12:33; Admin Dose 0.1 MG; Start 05/10/16 at 12:00 Famotidine (Pepcid) 20 mg DAILY GTB Last administered on 05/10/16 10:45; Admin Dose 20 MG; Start 05/10/16 at 11:00 Acetaminophen/ Hydrocodone Bitart ([place] (5/325)) 1 tab Q6H PRN GTB MODERATE PAIN LEVEL 4-6; Start 05/10/16 at 13:30 Magnesium Hydroxide (Milk Of Mag) 30 ml DAILY PRN GTB CONSTIPATION; Start at 10:00 Voriconazole (Vfend) 200 mg BID GTB Last administered on 05/10/16at 10:45; Admin Dose 200 MG; Start 05/10/16 at 11:00 Hydralazine HCl (Apresoline) 25 mg Q6 GTB Last administered on 05/10/16at 12:32 ; Admin Dose 25 MG; Start 05/10/16 at 12:00 Metoclopramide HCl (Reglan) 5 mg Q6 GTB ; Start 05/10/16 at 18:00 Assessment/Plan Chief Complaint/Hosp Course IMPRESSION AND PLAN: 1. Status post Septic shock, likely secondary to urinary tract infection. Persistent leukocytosis 2. Chronic encephalopathy. 3. History of hemorrhagic cerebrovascular accident. 4. Vent dependent respiratory failure. 5. Severe metabolic acidosis. 6. Anemia likely of chronic disease plus hemodilution The patient will need: 1. Monitor H&H 2. Gentle hydration 3. Broad spectrum antibiotics. 4. Deep venous thrombosis and gastrointestinal prophylaxis. 5. Intravenous bicarbonate needed 6. Tube feeding as tolerated Prognosis very poor, consider palliative care eval Consider discharge back to senior care facility with outpatient hospice eval Problems: JIMMY GONSALEZ MD, [facility] May 10, 2016 15:01
--- NOTE | 2016-05-10 16:06 | CONS ---
Date/Time of Note Date/Time of Note DATE: 05/10/16 TIME: 16:04 Consult Date/Type/Reason Admit Date/Time May 04, 2016 at 05:51 Initial Consult Date Type of Consultation: ID Subjective no acute changes, afebrile, still with diarrhea Objective Vital Signs Date Time Temp Pulse Resp B/P Pulse Ox O2 Delivery O2 Flow Rate FiO2 05/10/16 12:22 84 05/10/16 11:24 97.9 22 118/65 99 05/10/16 10:55 40 05/09/16 04:00 Mechanical Ventilator Intake and Output 05/09/16 05/09/16 05/10/16 15:00 23:00 07:00 Intake Total 650 ml 480 ml Output Total 650 ml 1050 ml Balance 0 ml -570 ml Results/Medications Result Diagram: 05/10/16 0840 05/10/16 0840 Results 24 hrs Laboratory Tests Test 05/09/16 19:02 05/09/16 20:40 05/10/16 01:20 05/10/16 06:04 Bedside Glucose 212 206 181 180 Test 05/10/16 08:40 05/10/16 11:47 Anion Gap 14 Basophils # 0.0 Basophils % 0.0 Blood Morphology Comment Blood Urea Nitrogen 64 H Calcium Level 7.3 L Carbon Dioxide Level 20 L Chloride Level 117 H Creatinine 1.80 H Eosinophils # 0.4 Eosinophils % 3.2 Glucose Level 173 Hematocrit 26.6 L Hemoglobin 8.9 L Lymphocytes # 1.1 Lymphocytes % 8.7 L Mean Corpuscular Hemoglobin 29.9 Mean Corpuscular Hemoglobin Concent 33.5 Mean Corpuscular Volume 89.3 Mean Platelet Volume 8.4 Monocytes # 0.3 Monocytes % 2.5 Neutrophils # 10.9 H Neutrophils % 85.6 H Nucleated Red Blood Cells # 0.0 Nucleated Red Blood Cells % 0.0 Platelet Count 299 Potassium Level 3.4 L Red Blood Count 2.98 L Red Cell Distribution Width 15.8 H Sodium Level 148 H White Blood Count 12.8 H Bedside Glucose 196 Medications Current Medications Morphine Sulfate (morphine) 2 mg Q4H PRN IV SEVERE PAIN LEVEL 7-10 Last administered on 05/07/16at 18:26; Admin Dose 2 MG; Start 05/04/16 at 07:30 Docusate Sodium (Colace) 100 mg Q12H PRN PO CONSTIPATION; Start 05/04/16 at 07 :30 Ondansetron HCl (Zofran Inj) 4 mg Q6H PRN IV NAUSEA AND/OR VOMITING Last administered on 05/05/16at 17:56; Admin Dose 4 MG; Start 05/04/16 at 07:30 Lorazepam (Ativan) 0.5 mg Q6H PRN IV ANXIETY Last administered on 05/06/16at 23 :58; Admin Dose 0.5 MG; Start 05/04/16 at 07:30 Hydralazine HCl (Apresoline) 10 mg Q6H PRN IV ELEVATED BLOOD PRESSURE; Start 05/04/16 at 07:30 Nitroglycerin (Nitroglycerin (Sl Tab) 0.4 Mg) 1 tab Q5M PRN SL ANGINA; Start 05/04/16 at 07:30 Acetaminophen (Tylenol Supp) 650 mg Q4 PRN [place] PAIN OR TEMP ABOVE 38C; Start at 07:30 Atorvastatin Calcium (Lipitor) 20 mg QHS GTB Last administered on 05/09/16at 21 :27; Admin Dose 20 MG; Start 05/04/16 at 21:00 Bisacodyl (Dulcolax Supp) 10 mg Q24H PRN [place] CONSTIPATION; Start 05/04/16 at 07 :30 Levetiracetam (Keppra Liquid) 1,000 mg Q12 GTB Last administered on 05/10/16at 10:12; Admin Dose 1,000 MG; Start 05/04/16 at 09:00 Senna (Senokot) 2 tab DAILY GTB Last administered on 05/10/16at 10:11; Admin Dose 2 TAB; Start 05/04/16 at 09:00 Multivitamins (Thera-Plus) 5 ml DAILY GTB Last administered on 05/10/16at 10:12 ; Admin Dose 5 ML; Start 05/04/16 at 09:00 Miscellaneous Information 1 ea NOTE XX ; Start 05/04/16 at 09:00 Glucose (Glutose) 15 gm Q15M PRN PO DECREASED GLUCOSE; Start 05/04/16 at 09:00 Glucose (Glutose) 22.5 gm Q15M PRN PO DECREASED GLUCOSE; Start 05/04/16 at 09: 00 Dextrose (D50w Syringe) 25 ml Q15M PRN IV DECREASED GLUCOSE; Start 05/04/16 at 09:00 Dextrose (D50w Syringe) 50 ml Q15M PRN IV DECREASED GLUCOSE; Start 05/04/16 at 09:00 Glucagon (Glucagen) 1 mg Q15M PRN IM DECREASED GLUCOSE; Start 05/04/16 at 09: 00 Glucose (Glutose) 15 gm Q15M PRN BUCCAL DECREASED GLUCOSE; Start 05/04/16 at 09:00 Acetaminophen (Tylenol Liquid) 650 mg Q6H PRN GTB PAIN LEVEL 1-3 OR FEVER Last administered on 05/05/16at 21:37; Admin Dose 650 MG; Start 05/04/16 at 18:30 Metronidazole 500 mg 500 mg Q8 GTB Last administered on 05/10/16at 14:42; Admin Dose 500 MG; Start 05/05/16 at 14:00 Phenylephrine HCl/ Dextrose (Oli-Synephrine/ D5W) 500 ml @ 75 mls/hr TITRATE IV Last administered on 05/06/16at 21:52; Admin Dose 16.5 MLS/HR; Start at 15:00 Collagenase (Santyl) APPLY TO NECROTIC TISSUE DAILY TOP Last administered on at 10:18; Admin Dose 1 APPLIC; Start 05/06/16 at 16:30 Collagenase (Santyl) APPLY TO NECROTIC AREA PRN PRN TOP SOILING; Start at 16:00 Insulin Glargine (Lantus) 10 unit QPM SC Last administered on 05/09/16at 21:50 ; Admin Dose 10 UNIT; Start 05/07/16 at 21:00 Insulin Aspart (Novolog Insulin Pen) NOVOLOG *MODERATE* ALGORITHM Q6 SC Last administered on 05/10/16at 12:36; Admin Dose 4 UNIT; Start 05/09/16 at 12:00 Aspirin 81 mg 81 mg DAILY GTB Last administered on 05/10/16at 10:11; Admin Dose 81 MG; Start 05/10/16 at 09:00 Tigecycline/ Sodium Chloride (Tygacil/NS) 100 ml @ 200 mls/hr Q12 IVPB Last administered on 05/10/16at 06:07; Admin Dose 200 MLS/HR; Start 05/10/16 at 06: 00 Miconazole Nitrate (Miconazole 2% Vag Cr) 1 applic HS VAG Last administered on 05/09/16at 21:28; Admin Dose 1 APPLIC; Start 05/09/16 at 21:00; Stop 05/12/16 at 21:00 Ascorbic Acid (Vitamin C) 500 mg DAILY GTB Last administered on 05/10/16at 10: 45; Admin Dose 500 MG; Start 05/10/16 at 11:00 Citric Acid/ Sodium Citrate (Bicitra) 30 ml BID GTB Last administered on 10:45; Admin Dose 30 ML; Start 05/10/16 at 11:00 Clonidine (Catapres) 0.1 mg Q6 GTB Last administered on 05/10/16 12:33; Admin Dose 0.1 MG; Start 05/10/16 at 12:00 Famotidine (Pepcid) 20 mg DAILY GTB Last administered on 05/10/16 10:45; Admin Dose 20 MG; Start 05/10/16 at 11:00 Acetaminophen/ Hydrocodone Bitart ([place] (5/325)) 1 tab Q6H PRN GTB MODERATE PAIN LEVEL 4-6; Start 05/10/16 at 13:30 Magnesium Hydroxide (Milk Of Mag) 30 ml DAILY PRN GTB CONSTIPATION; Start at 10:00 Voriconazole (Vfend) 200 mg BID GTB Last administered on 05/10/16at 10:45; Admin Dose 200 MG; Start 05/10/16 at 11:00 Hydralazine HCl (Apresoline) 25 mg Q6 GTB Last administered on 05/10/16at 12:32 ; Admin Dose 25 MG; Start 05/10/16 at 12:00 Metoclopramide HCl (Reglan) 5 mg Q6 GTB ; Start 05/10/16 at 18:00 Assessment/Plan Chief Complaint/Hosp Course INDWELLINGS: Trach, PEG, Reynolds, [employer] shunt. ANTIMICROBIALS: Tygacil, Flagyl, Voriconazole. PHYSICAL EXAMINATION: GENERAL: This is a chronically ill-appearing, middle-aged woman who is obtunded in no distress. HEENT: Head atraumatic, normocephalic. Sclerae anicteric. Buccal mucosa dry. NECK: Supple. Tracheostomy present. CHEST: Rise symmetrical. Breath sounds diminished at the bases. HEART: S1, S2. ABDOMEN: Soft, bowel tones present. EXTREMITIES: Without cyanosis. ASSESSMENT: 1. Severe sepsis with shock. 2. Clostridium difficile colitis. 3. Unstageable sacral decubitus, possible osteomyelitis with a history of multiple debridements. 4. 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 5. Seizure disorder. 6. Chronic encephalopathy. 7. Urinary tract infection with culture grew Deyanira glabrata. PLAN: Stable, continue abx, local wound care, pending [facility] staff Problems: DUTCH STEELE NP May 10, 2016 16:06
[2016-05-10] MEDS: METOCLOPRAMIDE (1 MG/ML) 10 ML CUP GTB SCH ×2 (17:57→23:57)
[2016-05-10] MEDS ORDERED: METOCLOPRAMIDE 5 MG TAB GTB SCH (18:00)
[2016-05-10] MEDS ORDERED: METOCLOPRAMIDE 10 MG TAB PO ONE (18:00)
[2016-05-10] MEDS: MICONAZOLE 2% 45 GM VAG CR VAG SCH (21:00)
[2016-05-10] MEDS ORDERED: POTASSIUM CHLORIDE 20 MEQ in SOD CHLORIDE 0.9% 100 ML IVPB ONE (22:00)
--- NOTE | 2016-05-10 22:28 | CONS ---
Date/Time of Note Date/Time of Note DATE: 05/10/16 TIME: 22:26 Assessment/Plan Assessment/Plan Chief Complaint/Hosp Course IMPRESSION: 1. Patient has [id number] kidney disease. 2. Acute renal failure due to dehydration. 3. Underlying acute tubular necrosis due to sepsis. 4. Severe sepsis. 5. hypernatremia. 6. Free water deficit. 7. Hypokalemia. 8. Lactic acidosis. 9. Normal alkaline phosphatase. 10. Anemia. 11. History of tracheostomy. 12 METABOLIC ACIDOSIS PLAN KCL CK LABS NAHCO3 BICITRA WATER G TUBE CK BMP Problems: Consultation Date/Type/Reason Admit Date/Time May 04, 2016 at 05:51 Type of Consultation: RENAL Exam/Review of Systems Vital Signs Vitals Vital Signs Date Time Temp Pulse Resp B/P Pulse Ox O2 Delivery O2 Flow Rate FiO2 05/10/16 20:28 87 05/10/16 19:44 98.5 25 90/55 100 05/10/16 17:04 40 05/09/16 04:00 Mechanical Ventilator Intake and Output 05/09/16 05/09/16 05/10/16 15:00 23:00 07:00 Intake Total 650 ml 480 ml Output Total 650 ml 1050 ml Balance 0 ml -570 ml Exam Respiratory: clear to auscultation Cardiovascular: regular rate and rhythm Gastrointestinal: soft Extremities: edema (+) Results Result Diagram: 05/10/16 0840 05/10/16 0840 Results 24 hrs Laboratory Tests Test 05/10/16 01:20 05/10/16 06:04 05/10/16 08:40 05/10/16 11:47 Bedside Glucose 181 180 196 Anion Gap 14 Basophils # 0.0 Basophils % 0.0 Blood Morphology Comment Blood Urea Nitrogen 64 H Calcium Level 7.3 L Carbon Dioxide Level 20 L Chloride Level 117 H Creatinine 1.80 H Eosinophils # 0.4 Eosinophils % 3.2 Glucose Level 173 Hematocrit 26.6 L Hemoglobin 8.9 L Lymphocytes # 1.1 Lymphocytes % 8.7 L Mean Corpuscular Hemoglobin 29.9 Mean Corpuscular Hemoglobin Concent 33.5 Mean Corpuscular Volume 89.3 Mean Platelet Volume 8.4 Monocytes # 0.3 Monocytes % 2.5 Neutrophils # 10.9 H Neutrophils % 85.6 H Nucleated Red Blood Cells # 0.0 Nucleated Red Blood Cells % 0.0 Platelet Count 299 Potassium Level 3.4 L Red Blood Count 2.98 L Red Cell Distribution Width 15.8 H Sodium Level 148 H White Blood Count 12.8 H Test 05/10/16 17:07 05/10/16 21:57 Bedside Glucose 172 154 Medications Medications Current Medications Morphine Sulfate (morphine) 2 mg Q4H PRN IV SEVERE PAIN LEVEL 7-10 Last administered on 05/07/16 18:26; Admin Dose 2 MG; Start 05/04/16 at 07:30 Docusate Sodium (Colace) 100 mg Q12H PRN PO CONSTIPATION; Start 05/04/16 at 07 :30 Ondansetron HCl (Zofran Inj) 4 mg Q6H PRN IV NAUSEA AND/OR VOMITING Last administered on 05/05/16at 17:56; Admin Dose 4 MG; Start 05/04/16 at 07:30 Lorazepam (Ativan) 0.5 mg Q6H PRN IV ANXIETY Last administered on 05/06/16at 23 :58; Admin Dose 0.5 MG; Start 05/04/16 at 07:30 Hydralazine HCl (Apresoline) 10 mg Q6H PRN IV ELEVATED BLOOD PRESSURE; Start 05/04/16 at 07:30 Nitroglycerin (Nitroglycerin (Sl Tab) 0.4 Mg) 1 tab Q5M PRN SL ANGINA; Start 05/04/16 at 07:30 Acetaminophen (Tylenol Supp) 650 mg Q4 PRN [place] PAIN OR TEMP ABOVE 38C; Start at 07:30 Atorvastatin Calcium (Lipitor) 20 mg QHS GTB Last administered on 05/09/16at 21 :27; Admin Dose 20 MG; Start 05/04/16 at 21:00 Bisacodyl (Dulcolax Supp) 10 mg Q24H PRN [place] CONSTIPATION; Start 05/04/16 at 07 :30 Levetiracetam (Keppra Liquid) 1,000 mg Q12 GTB Last administered on 05/10/16at 10:12; Admin Dose 1,000 MG; Start 05/04/16 at 09:00 Senna (Senokot) 2 tab DAILY GTB Last administered on 05/10/16at 10:11; Admin Dose 2 TAB; Start 05/04/16 at 09:00 Multivitamins (Thera-Plus) 5 ml DAILY GTB Last administered on 05/10/16at 10:12 ; Admin Dose 5 ML; Start 05/04/16 at 09:00 Miscellaneous Information 1 ea NOTE XX ; Start 05/04/16 at 09:00 Glucose (Glutose) 15 gm Q15M PRN PO DECREASED GLUCOSE; Start 05/04/16 at 09:00 Glucose (Glutose) 22.5 gm Q15M PRN PO DECREASED GLUCOSE; Start 05/04/16 at 09: 00 Dextrose (D50w Syringe) 25 ml Q15M PRN IV DECREASED GLUCOSE; Start 05/04/16 at 09:00 Dextrose (D50w Syringe) 50 ml Q15M PRN IV DECREASED GLUCOSE; Start 05/04/16 at 09:00 Glucagon (Glucagen) 1 mg Q15M PRN IM DECREASED GLUCOSE; Start 05/04/16 at 09: 00 Glucose (Glutose) 15 gm Q15M PRN BUCCAL DECREASED GLUCOSE; Start 05/04/16 at 09:00 Acetaminophen (Tylenol Liquid) 650 mg Q6H PRN GTB PAIN LEVEL 1-3 OR FEVER Last administered on 05/05/16at 21:37; Admin Dose 650 MG; Start 05/04/16 at 18:30 Metronidazole 500 mg 500 mg Q8 GTB Last administered on 05/10/16at 14:42; Admin Dose 500 MG; Start 05/05/16 at 14:00 Phenylephrine HCl/ Dextrose (Oli-Synephrine/ D5W) 500 ml @ 75 mls/hr TITRATE IV Last administered on 05/06/16at 21:52; Admin Dose 16.5 MLS/HR; Start at 15:00 Collagenase (Santyl) APPLY TO NECROTIC TISSUE DAILY TOP Last administered on at 10:18; Admin Dose 1 APPLIC; Start 05/06/16 at 16:30 Collagenase (Santyl) APPLY TO NECROTIC AREA PRN PRN TOP SOILING; Start at 16:00 Insulin Glargine (Lantus) 10 unit QPM SC Last administered on 05/09/16at 21:50 ; Admin Dose 10 UNIT; Start 05/07/16 at 21:00 Insulin Aspart (Novolog Insulin Pen) NOVOLOG *MODERATE* ALGORITHM Q6 SC Last administered on 05/10/16at 17:36; Admin Dose 2 UNIT; Start 05/09/16 at 12:00 Aspirin 81 mg 81 mg DAILY GTB Last administered on 05/10/16 10:11; Admin Dose 81 MG; Start 05/10/16 at 09:00 Tigecycline/ Sodium Chloride (Tygacil/NS) 100 ml @ 200 mls/hr Q12 IVPB Last administered on 05/10/16 06:07; Admin Dose 200 MLS/HR; Start 05/10/16 at 06: 00 Miconazole Nitrate (Miconazole 2% Vag Cr) 1 applic HS VAG Last administered on 05/09/16 21:28; Admin Dose 1 APPLIC; Start 05/09/16 at 21:00; Stop 05/12/16 at 21:00 Ascorbic Acid (Vitamin C) 500 mg DAILY GTB Last administered on 05/10/16at 10: 45; Admin Dose 500 MG; Start 05/10/16 at 11:00 Citric Acid/ Sodium Citrate (Bicitra) 30 ml BID GTB Last administered on at 10:45; Admin Dose 30 ML; Start 05/10/16 at 11:00 Clonidine (Catapres) 0.1 mg Q6 GTB Last administered on 05/10/16at 12:33; Admin Dose 0.1 MG; Start 05/10/16 at 12:00 Famotidine (Pepcid) 20 mg DAILY GTB Last administered on 05/10/16at 10:45; Admin Dose 20 MG; Start 05/10/16 at 11:00 Acetaminophen/ Hydrocodone Bitart ([place] (5/325)) 1 tab Q6H PRN GTB MODERATE PAIN LEVEL 4-6; Start 05/10/16 at 13:30 Magnesium Hydroxide (Milk Of Mag) 30 ml DAILY PRN GTB CONSTIPATION; Start at 10:00 Voriconazole (Vfend) 200 mg BID GTB Last administered on 05/10/16at 10:45; Admin Dose 200 MG; Start 05/10/16 at 11:00 Hydralazine HCl (Apresoline) 25 mg Q6 GTB Last administered on 05/10/16at 12:32 ; Admin Dose 25 MG; Start 05/10/16 at 12:00 Metoclopramide HCl 10 mg 10 mg Q6 GTB ; Start 05/10/16 at 18:00 Dextrose/Sodium Chloride 1,000 ml @ 75 mls/hr [id number] IV ; Start 05/10/16 at 22:00 Potassium Chloride/Sodium Chloride (KCl/NS) 110 ml @ 55 mls/hr ONCE ONCE IVPB ; Start 05/10/16 at 22:00; Stop 05/10/16 at 23:59 AMBER LIEBERMAN MD May 10, 2016 22:27
[2016-05-10] MEDS: ATORVASTATIN 20 MG TAB GTB SCH (22:38)
[2016-05-10] MEDS: DEXTROSE 5%-0.45% NACL 1,000 ML IV SCH (22:39)
[2016-05-10] MEDS: INSULIN GLARGINE [LANtus] 3 ML PEN SC SCH (22:51)
[2016-05-11] VITALS (28 sets, daily range): BP systolic 89–126; BP diastolic 50–64; PULSE 85–104; RESP 14–27
--- NOTE | 2016-05-11 05:38 | DS ---
DATE OF ADMISSION: 05/04/2016 DATE OF DISCHARGE: 05/10/2016 CONSULTANTS: 1. Dr. El Victoria 2. Dr. Ranjeet Omalley 3. Dr. Pederson DIAGNOSES: 1. Sepsis, likely secondary to urinary tract infection versus sacral decubitus. The patient is sta tus post vancomycin, Meropenem, Flagyl, linezolid, and Vfend. We will discharge on antibiotics as p er infectious disease. 2. Acute on chronic respiratory failure, ventilator-dependent respiratory failure, status post trac h. 3. Acute renal insufficiency, improved. 4. Diabetes mellitus. Continue insulin sliding scale and Lantus. 5. History of cerebrovascular accident. No acute issues at this time. The patient is bedbound and aphasic. 6. Dyslipidemia. Continue Lipitor. 7. Essential hypertension, well controlled on medical management. 8. Clostridium difficile toxin. Continue Flagyl. 9. Hypokalemia, repleted. 10. Dysphagia. Continue PEG tube feeding. MEDICATIONS: 1. Tylenol. 2. DuoNeb. 3. . 4. Vitamin C. 5. Aspirin. 6. Lipitor. 7. Dulcolax. 8. Bicitra. 9. Clonidine. 10. Collagenase. 11. Colace. 12. Pepcid. 13. Hydralazine. 14. [place]. 15. Insulin sliding scale. 16. Lantus. 17. Keppra. 18. Lorazepam. 19. Flagyl. 20. Miconazole. 21. Multivitamin. 22. Zofran. 23. Tigecycline. 24. Vfend. 25. Cranberry. 26. Ferrous sulfate. 27. Reglan. ALLERGIES: NO KNOWN DRUG ALLERGIES. 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 Therefore, it was requested the patient to be tra [facility]ferred to [facility] Emergency Room where she was found to have WBC of 14.5, hemoglobin 9 .4. Urinalysis was positive for urinary tract infection. The patient's urine culture showed Candid a glabrata. Stool was C. difficile positive. Wound culture positive for Klebsiella pneumoniae, mul tidrug resistant organism, proteus mirabilis. Infectious disease doctor, heel compressor, and palliat leti care physicians were consulted. The patient was placed on vancomycin and Zosyn and then was tra nsitioned to vancomycin, linezolid, Meropenem, Flagyl, and Vfend. She was continued on aggressive m edical management. Her WBC has been improving significantly. She is afebrile with temperature 97.7 , pulse 92, respiration 22, blood pressure 118/65, oxygen saturation 99% on the vent via FIO2 40%. The patient has been continued on aggressive medical management. Infectious disease doctor has been managing the IV antibiotics. Two family meetings with the family regarding the code status. The c ode status has been changed to DNR as per patient's daughter and request. At this time, the patient is in fair condition to be transferred to snf facility with IV antibiotics. Dictated By: AMY GARCIA/NTS Conf#: [id number] DID#: [id number]
[2016-05-11] MEDS: METOCLOPRAMIDE (1 MG/ML) 10 ML CUP GTB SCH ×3 (06:38→17:42)
[2016-05-11] MEDS: metroNIDAZOLE 500 MG TAB GTB SCH ×3 (06:38→21:50)
[2016-05-11] MEDS: ACETAMINOPHEN 650MG/20.3ML CUP GTB PRN (06:39)
[2016-05-11] MEDS: INSULIN ASPART [NOVOLOG] 3 ML PEN SC SCH ×3 (07:01→17:40)
[2016-05-11] MEDS: SENNA TAB GTB SCH (09:00)
[2016-05-11] MEDS: VORICONAZOLE 200 MG TAB GTB SCH ×2 (09:41→21:50)
[2016-05-11] MEDS: ASPIRIN 81 MG TAB GTB SCH (09:41)
[2016-05-11] MEDS: ASCORBIC ACID 500 MG TAB GTB SCH (09:41)
[2016-05-11] MEDS: FAMOTIDINE 20 MG TAB GTB SCH (09:41)
[2016-05-11] MEDS: LEVETIRACETAM (100 MG/ML) 5ML CUP GTB SCH ×2 (09:42→21:49)
[2016-05-11] MEDS: TIGECYCLINE 50 MG in SOD CHLORIDE 0.9% 100 ML IVPB SCH ×2 (09:42→21:47)
[2016-05-11] MEDS: COLLAGENASE 30 GM TUBE TOP SCH (09:42)
[2016-05-11] MEDS: CITRIC ACID/NA CITRATE 30 ML CUP GTB SCH ×2 (09:42→21:49)
[2016-05-11] MEDS: MULTIVITAMINS 5 ML CUP GTB SCH (09:47)
[2016-05-11] MEDS: DEXTROSE 5%-0.45% NACL 1,000 ML IV SCH ×2 (11:20→15:44)
[2016-05-11 11:48] LABS: BASOPHILS % 0.3 % (0.0-2.0); EOSINOPHILS # 0.3 10^3/ul (0.0-0.5); EOSINOPHILS % 2.4 % (0.0-7.0); HEMATOCRIT 27.3 % (37.0-47.0); LYMPHOCYTES # 1.9 10^3/ul (0.8-2.9); LYMPHOCYTES % 14.6 % (15.0-51.0); MEAN CORPUSCULAR HEMOGLOBIN 29.9 pg (29.0-33.0); MEAN CORPUSCULAR HGB CONC 32.9 g/dl (32.0-37.0); MEAN CORPUSCULAR VOLUME 90.8 fl (82.0-101.0); MEAN PLATELET VOLUME 9.1 fl (7.4-10.4); MONOCYTE # 0.3 10^3/ul (0.3-0.9); MONOCYTES % 2.6 % (0.0-11.0); NEUTROPHIL # 10.3 10^3/ul (1.6-7.5); NEUTROPHILS % 80.1 % (39.0-77.0); PLATELET COUNT 282 10^3/UL (140-440); RED BLOOD COUNT 3.01 10^6/ul (4.20-5.40); RED CELL DISTRIBUTION WIDTH 16.3 % (11.5-14.5); UNCORRECTED WBC 12.9 10^3/ul (4.8-10.8); WHITE BLOOD COUNT 12.9 10^3/ul (4.8-10.8)
[2016-05-11 11:55] LABS: CONDITION 1; LH ANALYZER COMMENTS 1
[2016-05-11 11:56] LABS: SUSPECT 1
[2016-05-11 11:59] LABS: POTASSIUM 3.5 mmol/L (3.5-5.1)
[2016-05-11 12:01] LABS: CREATININE 1.76 mg/dl (0.44-1.00)
[2016-05-11 12:02] LABS: CALCIUM 7.5 mg/dl (8.4-10.2)
--- NOTE | 2016-05-11 14:39 | PN ---
Date/Time of Note Date/Time of Note DATE: 05/11/16 TIME: 14:29 Assessment/Plan VTE Prophylaxis VTE Prophylaxis Intervention: SCD's Lines/Catheters IV Catheter Type (from Nrsg): Peripheral IV Urinary Cath still in place: Yes Reason Cath still needed: other (indicate) Assessment/Plan Chief Complaint/Hosp Course ASSESSMENT AND PLAN: 1. Sepsis, likely secondary to urinary tract infection versus sacral decubitus. The patient has been started on Tygacil , flagyl, and V.fend as per ID recommendations . Follow up infectious disease recommendations. We'll continue monitor patient blood pressure, off pressors at this time 2. Acute on chronic respiratory failure, Ventilator-dependent respiratory failure, status post trach. Pulmonology has been consulted. 3. Acute renal insufficiency, likely secondary to sepsis versus dehydration. nephrology consulted. Continue IV fluids. 4. Diabetes mellitus. Continue sliding scale and Lantus. 5. History of cerebrovascular accident. No acute issues at this time. Patient is bed bound and a phasic 6. Dyslipidemia. Continue Lipitor. 7. Electrolyte imbalance , nephrology following 8. Essential Hypertension, continue to monitor restart blood pressure medications cautiously 9. C. difficile toxin, continue Flagyl 10. Hypokalemia, repleted We will continue monitor patient closely for recommendation management treatment as per clinical course Condition guarded Continue to monitor in telemetry floor Plan to discharge to longterm facility when bed is available Discharge/transfer antibiotics as per infectious disease Problems: Subjective 24 Hr Interval Summary Free Text/Dictation No acute changes G-tube feeding has been held secondary to high amount of residual Exam/Review of Systems Vital Signs Vitals Vital Signs Date Time Temp Pulse Resp B/P Pulse Ox O2 Delivery O2 Flow Rate FiO2 05/11/16 12:29 89 05/11/16 11:57 98.6 18 99/58 99 05/11/16 11:10 40 05/11/16 04:00 Mechanical Ventilator Intake and Output 05/10/16 05/10/16 05/11/16 15:00 23:00 07:00 Intake Total 180 ml 1200 ml Output Total 650 ml 600 ml Balance -470 ml 600 ml Exam General: The patient is a phasic, on vent via trach, does not respond to any pain or verbal stimuli HEENT: Atraumatic, normocephalic. The pupils are equal Neck: Supple , trach in place Chest: Normal Lungs: Decreased breath sounds bilateral lower lung field, positive crackles Heart: Normal S1-S2, Regular rhythm and rate. Abdomen: Soft , nontender, nondistended , bowel sounds are present. PEG tube in place Extremities: Flaccid, + 2 edema no cyanosis Neurologic: No meaningful neurologic examination findings Skin: Stage IV sacral decubitus Results Result Diagram: 05/11/16 1052 05/11/16 1052 Results 24 hrs Laboratory Tests Test 05/10/16 17:07 05/10/16 21:57 05/11/16 06:33 05/11/16 06:41 Bedside Glucose 172 154 192 Lab Scanned Report REFERENCE LAB Test 05/11/16 10:52 05/11/16 11:57 Anion Gap 15 Basophils # 0.0 Basophils % 0.3 Blood Morphology Comment Blood Urea Nitrogen 60 H Calcium Level 7.5 L Carbon Dioxide Level 18 L Chloride Level 119 H Creatinine 1.76 H Eosinophils # 0.3 Eosinophils % 2.4 Glucose Level 198 Hematocrit 27.3 L Hemoglobin 9.0 L Lymphocytes # 1.9 Lymphocytes % 14.6 L Mean Corpuscular Hemoglobin 29.9 Mean Corpuscular Hemoglobin Concent 32.9 Mean Corpuscular Volume 90.8 Mean Platelet Volume 9.1 Monocytes # 0.3 Monocytes % 2.6 Neutrophils # 10.3 H Neutrophils % 80.1 H Nucleated Red Blood Cells # 0.0 Nucleated Red Blood Cells % 0.0 Platelet Count 282 Potassium Level 3.5 Red Blood Count 3.01 L Red Cell Distribution Width 16.3 H Sodium Level 148 H White Blood Count 12.9 H Bedside Glucose 224 H Medications Medications Current Medications Morphine Sulfate (morphine) 2 mg Q4H PRN IV SEVERE PAIN LEVEL 7-10 Last administered on 05/07/16at 18:26; Admin Dose 2 MG; Start 05/04/16 at 07:30 Docusate Sodium (Colace) 100 mg Q12H PRN PO CONSTIPATION; Start 05/04/16 at 07 :30 Ondansetron HCl (Zofran Inj) 4 mg Q6H PRN IV NAUSEA AND/OR VOMITING Last administered on 05/05/16at 17:56; Admin Dose 4 MG; Start 05/04/16 at 07:30 Lorazepam (Ativan) 0.5 mg Q6H PRN IV ANXIETY Last administered on 05/06/16at 23 :58; Admin Dose 0.5 MG; Start 05/04/16 at 07:30 Hydralazine HCl (Apresoline) 10 mg Q6H PRN IV ELEVATED BLOOD PRESSURE; Start 05/04/16 at 07:30 Nitroglycerin (Nitroglycerin (Sl Tab) 0.4 Mg) 1 tab Q5M PRN SL ANGINA; Start 05/04/16 at 07:30 Acetaminophen (Tylenol Supp) [address] PAIN OR TEMP ABOVE 38C; Start at 07:30 Atorvastatin Calcium (Lipitor) 20 mg QHS GTB Last administered on 05/10/16at 22 :38; Admin Dose 20 MG; Start 05/04/16 at 21:00 Bisacodyl (Dulcolax Supp) [address] CONSTIPATION; Start 05/04/16 at 07 :30 Levetiracetam (Keppra Liquid) 1,000 mg Q12 GTB Last administered on 05/11/16at 09:42; Admin Dose 1,000 MG; Start 05/04/16 at 09:00 Senna (Senokot) 2 tab DAILY GTB Last administered on 05/10/16at 10:11; Admin Dose 2 TAB; Start 05/04/16 at 09:00 Multivitamins (Thera-Plus) 5 ml DAILY GTB Last administered on 05/11/16at 09:47 ; Admin Dose 5 ML; Start 05/04/16 at 09:00 Miscellaneous Information 1 ea NOTE XX ; Start 05/04/16 at 09:00 Glucose (Glutose) 15 gm Q15M PRN PO DECREASED GLUCOSE; Start 05/04/16 at 09:00 Glucose (Glutose) 22.5 gm Q15M PRN PO DECREASED GLUCOSE; Start 05/04/16 at 09: 00 Dextrose (D50w Syringe) 25 ml Q15M PRN IV DECREASED GLUCOSE; Start 05/04/16 at 09:00 Dextrose (D50w Syringe) 50 ml Q15M PRN IV DECREASED GLUCOSE; Start 05/04/16 at 09:00 Glucagon (Glucagen) 1 mg Q15M PRN IM DECREASED GLUCOSE; Start 05/04/16 at 09: 00 Glucose (Glutose) 15 gm Q15M PRN BUCCAL DECREASED GLUCOSE; Start 05/04/16 at 09:00 Acetaminophen (Tylenol Liquid) 650 mg Q6H PRN GTB PAIN LEVEL 1-3 OR FEVER Last administered on 05/11/16 06:39; Admin Dose 650 MG; Start 05/04/16 at 18:30 Metronidazole (Flagyl) 500 mg Q8 GTB Last administered on 05/11/16 06:38; Admin Dose 500 MG; Start 05/05/16 at 14:00 Collagenase (Santyl) APPLY TO NECROTIC TISSUE DAILY TOP Last administered on 09:42; Admin Dose 1 APPLIC; Start 05/06/16 at 16:30 Collagenase (Santyl) APPLY TO NECROTIC AREA PRN PRN TOP SOILING; Start at 16:00 Insulin Glargine (Lantus) 10 unit QPM SC Last administered on 05/10/16 22:51 ; Admin Dose 10 UNIT; Start 05/07/16 at 21:00 Insulin Aspart (Novolog Insulin Pen) NOVOLOG *MODERATE* ALGORITHM Q6 SC Last administered on 05/11/16 12:01; Admin Dose 6 UNIT; Start 05/09/16 at 12:00 Aspirin 81 mg 81 mg DAILY GTB Last administered on 05/11/16 09:41; Admin Dose 81 MG; Start 05/10/16 at 09:00 Tigecycline/ Sodium Chloride (Tygacil/NS) 100 ml @ 200 mls/hr Q12 IVPB Last administered on 05/11/16 09:42; Admin Dose 200 MLS/HR; Start 05/10/16 at 06: 00 Miconazole Nitrate (Miconazole 2% Vag Cr) 1 applic HS VAG Last administered on 05/10/16 21:00; Admin Dose 1 APPLIC; Start 05/09/16 at 21:00; Stop 05/12/16 at 21:00 Ascorbic Acid (Vitamin C) 500 mg DAILY GTB Last administered on 05/11/16 09: 41; Admin Dose 500 MG; Start 05/10/16 at 11:00 Citric Acid/ Sodium Citrate (Bicitra) 30 ml BID GTB Last administered on 09:42; Admin Dose 30 ML; Start 05/10/16 at 11:00 Clonidine (Catapres) 0.1 mg Q6 GTB Last administered on 05/10/16 12:33; Admin Dose 0.1 MG; Start 05/10/16 at 12:00 Famotidine (Pepcid) 20 mg DAILY GTB Last administered on 05/11/16at 09:41; Admin Dose 20 MG; Start 05/10/16 at 11:00 Acetaminophen/ Hydrocodone Bitart ([place] (5/325)) 1 tab Q6H PRN GTB MODERATE PAIN LEVEL 4-6; Start 05/10/16 at 13:30 Magnesium Hydroxide (Milk Of Mag) 30 ml DAILY PRN GTB CONSTIPATION; Start at 10:00 Voriconazole (Vfend) 200 mg BID GTB Last administered on 05/11/16at 09:41; Admin Dose 200 MG; Start 05/10/16 at 11:00 Hydralazine HCl (Apresoline) 25 mg Q6 GTB Last administered on 05/10/16at 12:32 ; Admin Dose 25 MG; Start 05/10/16 at 12:00 Metoclopramide HCl 10 mg 10 mg Q6 GTB Last administered on 05/11/16at 12:07; Admin Dose 10 MG; Start 05/10/16 at 18:00 Dextrose/Sodium Chloride (D5-1/2ns) 1,000 ml @ 75 mls/hr [id number] IV Last administered on 05/10/16at 22:39; Admin Dose 75 MLS/HR; Start 05/10/16 at 22:00 AMY HANKINS MD May 11, 2016 14:39
--- NOTE | 2016-05-11 14:51 | CONS ---
Date/Time of Note Date/Time of Note DATE: 05/11/16 TIME: 14:50 Consult Date/Type/Reason Admit Date/Time May 04, 2016 at 05:51 Type of Consultation: ID Subjective no events per report, lying comfortably in bed, no fevers Objective Vital Signs Date Time Temp Pulse Resp B/P Pulse Ox O2 Delivery O2 Flow Rate FiO2 05/11/16 12:29 89 05/11/16 11:57 98.6 18 99/58 99 05/11/16 11:10 40 05/11/16 04:00 Mechanical Ventilator Intake and Output 05/10/16 05/10/16 05/11/16 15:00 23:00 07:00 Intake Total 180 ml 1200 ml Output Total 650 ml 600 ml Balance -470 ml 600 ml Results/Medications Result Diagram: 05/11/16 1052 05/11/16 1052 Results 24 hrs Laboratory Tests Test 05/10/16 17:07 05/10/16 21:57 05/11/16 06:33 05/11/16 06:41 Bedside Glucose 172 154 192 Lab Scanned Report REFERENCE LAB Test 05/11/16 10:52 05/11/16 11:57 Anion Gap 15 Basophils # 0.0 Basophils % 0.3 Blood Morphology Comment Blood Urea Nitrogen 60 H Calcium Level 7.5 L Carbon Dioxide Level 18 L Chloride Level 119 H Creatinine 1.76 H Eosinophils # 0.3 Eosinophils % 2.4 Glucose Level 198 Hematocrit 27.3 L Hemoglobin 9.0 L Lymphocytes # 1.9 Lymphocytes % 14.6 L Mean Corpuscular Hemoglobin 29.9 Mean Corpuscular Hemoglobin Concent 32.9 Mean Corpuscular Volume 90.8 Mean Platelet Volume 9.1 Monocytes # 0.3 Monocytes % 2.6 Neutrophils # 10.3 H Neutrophils % 80.1 H Nucleated Red Blood Cells # 0.0 Nucleated Red Blood Cells % 0.0 Platelet Count 282 Potassium Level 3.5 Red Blood Count 3.01 L Red Cell Distribution Width 16.3 H Sodium Level 148 H White Blood Count 12.9 H Bedside Glucose 224 H Medications Current Medications Morphine Sulfate (morphine) 2 mg Q4H PRN IV SEVERE PAIN LEVEL 7-10 Last administered on 05/07/16at 18:26; Admin Dose 2 MG; Start 05/04/16 at 07:30 Docusate Sodium (Colace) 100 mg Q12H PRN PO CONSTIPATION; Start 05/04/16 at 07 :30 Ondansetron HCl (Zofran Inj) 4 mg Q6H PRN IV NAUSEA AND/OR VOMITING Last administered on 05/05/16at 17:56; Admin Dose 4 MG; Start 05/04/16 at 07:30 Lorazepam (Ativan) 0.5 mg Q6H PRN IV ANXIETY Last administered on 05/06/16at 23 :58; Admin Dose 0.5 MG; Start 05/04/16 at 07:30 Hydralazine HCl (Apresoline) 10 mg Q6H PRN IV ELEVATED BLOOD PRESSURE; Start 05/04/16 at 07:30 Nitroglycerin (Nitroglycerin (Sl Tab) 0.4 Mg) 1 tab Q5M PRN SL ANGINA; Start 05/04/16 at 07:30 Acetaminophen (Tylenol Supp) 650 mg Q4 PRN [place] PAIN OR TEMP ABOVE 38C; Start at 07:30 Atorvastatin Calcium (Lipitor) 20 mg QHS GTB Last administered on 05/10/16at 22 :38; Admin Dose 20 MG; Start 05/04/16 at 21:00 Bisacodyl (Dulcolax Supp) 10 mg Q24H PRN [place] CONSTIPATION; Start 05/04/16 at 07 :30 Levetiracetam (Keppra Liquid) 1,000 mg Q12 GTB Last administered on 05/11/16at 09:42; Admin Dose 1,000 MG; Start 05/04/16 at 09:00 Senna (Senokot) 2 tab DAILY GTB Last administered on 05/10/16at 10:11; Admin Dose 2 TAB; Start 05/04/16 at 09:00 Multivitamins (Thera-Plus) 5 ml DAILY GTB Last administered on 05/11/16at 09:47 ; Admin Dose 5 ML; Start 05/04/16 at 09:00 Miscellaneous Information 1 ea NOTE XX ; Start 05/04/16 at 09:00 Glucose (Glutose) 15 gm Q15M PRN PO DECREASED GLUCOSE; Start 05/04/16 at 09:00 Glucose (Glutose) 22.5 gm Q15M PRN PO DECREASED GLUCOSE; Start 05/04/16 at 09: 00 Dextrose (D50w Syringe) 25 ml Q15M PRN IV DECREASED GLUCOSE; Start 05/04/16 at 09:00 Dextrose (D50w Syringe) 50 ml Q15M PRN IV DECREASED GLUCOSE; Start 05/04/16 at 09:00 Glucagon (Glucagen) 1 mg Q15M PRN IM DECREASED GLUCOSE; Start 05/04/16 at 09: 00 Glucose (Glutose) 15 gm Q15M PRN BUCCAL DECREASED GLUCOSE; Start 05/04/16 at 09:00 Acetaminophen (Tylenol Liquid) 650 mg Q6H PRN GTB PAIN LEVEL 1-3 OR FEVER Last administered on 05/11/16at 06:39; Admin Dose 650 MG; Start 05/04/16 at 18:30 Metronidazole (Flagyl) 500 mg Q8 GTB Last administered on 05/11/16at 14:37; Admin Dose 500 MG; Start 05/05/16 at 14:00 Collagenase (Santyl) APPLY TO NECROTIC TISSUE DAILY TOP Last administered on 09:42; Admin Dose 1 APPLIC; Start 05/06/16 at 16:30 Collagenase (Santyl) APPLY TO NECROTIC AREA PRN PRN TOP SOILING; Start at 16:00 Insulin Glargine (Lantus) 10 unit QPM SC Last administered on 05/10/16 22:51 ; Admin Dose 10 UNIT; Start 05/07/16 at 21:00 Insulin Aspart (Novolog Insulin Pen) NOVOLOG *MODERATE* ALGORITHM Q6 SC Last administered on 05/11/16at 12:01; Admin Dose 6 UNIT; Start 05/09/16 at 12:00 Aspirin 81 mg 81 mg DAILY GTB Last administered on 05/11/16at 09:41; Admin Dose 81 MG; Start 05/10/16 at 09:00 Tigecycline/ Sodium Chloride (Tygacil/NS) 100 ml @ 200 mls/hr Q12 IVPB Last administered on 05/11/16 09:42; Admin Dose 200 MLS/HR; Start 05/10/16 at 06: 00 Miconazole Nitrate (Miconazole 2% Vag Cr) 1 applic HS VAG Last administered on 05/10/16at 21:00; Admin Dose 1 APPLIC; Start 05/09/16 at 21:00; Stop 05/12/16 at 21:00 Ascorbic Acid (Vitamin C) 500 mg DAILY GTB Last administered on 05/11/16 09: 41; Admin Dose 500 MG; Start 05/10/16 at 11:00 Citric Acid/ Sodium Citrate (Bicitra) 30 ml BID GTB Last administered on 09:42; Admin Dose 30 ML; Start 05/10/16 at 11:00 Clonidine (Catapres) 0.1 mg Q6 GTB Last administered on 05/10/16 12:33; Admin Dose 0.1 MG; Start 05/10/16 at 12:00 Famotidine (Pepcid) 20 mg DAILY GTB Last administered on 05/11/16 09:41; Admin Dose 20 MG; Start 05/10/16 at 11:00 Acetaminophen/ Hydrocodone Bitart ([place] (5/325)) 1 tab Q6H PRN GTB MODERATE PAIN LEVEL 4-6; Start 05/10/16 at 13:30 Magnesium Hydroxide (Milk Of Mag) 30 ml DAILY PRN GTB CONSTIPATION; Start at 10:00 Voriconazole (Vfend) 200 mg BID GTB Last administered on 05/11/16 09:41; Admin Dose 200 MG; Start 05/10/16 at 11:00 Hydralazine HCl (Apresoline) 25 mg Q6 GTB Last administered on 05/10/16 12:32 ; Admin Dose 25 MG; Start 05/10/16 at 12:00 Metoclopramide HCl 10 mg 10 mg Q6 GTB Last administered on 05/11/16 12:07; Admin Dose 10 MG; Start 05/10/16 at 18:00 Dextrose/Sodium Chloride (D5-1/2ns) 1,000 ml @ 75 mls/hr [id number] IV Last administered on 05/10/16 22:39; Admin Dose 75 MLS/HR; Start 05/10/16 at 22:00 Assessment/Plan Chief Complaint/Hosp Course INDWELLINGS: Trach, PEG, Reynolds, DYE AND CHEMICAL COORDINATOR shunt. ANTIMICROBIALS: Tygacil, Flagyl, Voriconazole. PHYSICAL EXAMINATION: GENERAL: This is a chronically ill-appearing, middle-aged woman who is obtunded in no distress. HEENT: Head atraumatic, normocephalic. Sclerae anicteric. Buccal mucosa dry. NECK: Supple. Tracheostomy present. CHEST: Rise symmetrical. Breath sounds diminished at the bases. HEART: S1, S2. ABDOMEN: Soft, bowel tones present. EXTREMITIES: Without cyanosis. ASSESSMENT: 1. Severe sepsis with shock. 2. Clostridium difficile colitis. 3. Unstageable sacral decubitus, possible osteomyelitis with a history of multiple debridements. 4. 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 5. Seizure disorder. 6. Chronic encephalopathy. 7. Urinary tract infection with culture grew Deyanira glabrata. PLAN: Clinically unchanged, continue abx, local wound care, pending placement staff Problems: DUTCH STEELE NP May 11, 2016 14:51
--- NOTE | 2016-05-11 17:00 | CONS ---
Date/Time of Note Date/Time of Note DATE: 05/11/16 TIME: 16:58 Consult Date/Type/Reason Admit Date/Time May 04, 2016 at 05:51 Type of Consultation: Pulm Subjective Comfortable on vent. No new events. Objective Vital Signs Date Time Temp Pulse Resp B/P Pulse Ox O2 Delivery O2 Flow Rate FiO2 05/11/16 15:40 98.9 91 18 126/64 100 05/11/16 11:10 40 05/11/16 04:00 Mechanical Ventilator Intake and Output 05/10/16 05/10/16 05/11/16 15:00 23:00 07:00 Intake Total 180 ml 1200 ml Output Total 650 ml 600 ml Balance -470 ml 600 ml PHYSICAL EXAMINATION: GENERAL: Chronically ill appearing lady on mechanical ventilation, appears comfortable at rest VITAL SIGNS: As above. NECK: Supple. No JVD or lymphadenopathy. HEENT: Trach site clean and intact. CARDIAC: S1, S2, no added sounds or murmurs. CHEST: Diminished air entry bilaterally. ABDOMEN: Soft, nontender. No guarding or rebound. EXTREMITIES: No cyanosis, clubbing, edema +2 NEUROLOGIC: Unable to assess. Results/Medications Result Diagram: 05/11/16 1052 05/11/16 1052 Results 24 hrs Laboratory Tests Test 05/10/16 17:07 05/10/16 21:57 05/11/16 06:33 05/11/16 06:41 Bedside Glucose 172 154 192 Lab Scanned Report REFERENCE LAB Test 05/11/16 10:52 05/11/16 11:57 Anion Gap 15 Basophils # 0.0 Basophils % 0.3 Blood Morphology Comment Blood Urea Nitrogen 60 H Calcium Level 7.5 L Carbon Dioxide Level 18 L Chloride Level 119 H Creatinine 1.76 H Eosinophils # 0.3 Eosinophils % 2.4 Glucose Level 198 Hematocrit 27.3 L Hemoglobin 9.0 L Lymphocytes # 1.9 Lymphocytes % 14.6 L Mean Corpuscular Hemoglobin 29.9 Mean Corpuscular Hemoglobin Concent 32.9 Mean Corpuscular Volume 90.8 Mean Platelet Volume 9.1 Monocytes # 0.3 Monocytes % 2.6 Neutrophils # 10.3 H Neutrophils % 80.1 H Nucleated Red Blood Cells # 0.0 Nucleated Red Blood Cells % 0.0 Platelet Count 282 Potassium Level 3.5 Red Blood Count 3.01 L Red Cell Distribution Width 16.3 H Sodium Level 148 H White Blood Count 12.9 H Bedside Glucose 224 H Medications Current Medications Morphine Sulfate (morphine) 2 mg Q4H PRN IV SEVERE PAIN LEVEL 7-10 Last administered on 05/07/16 18:26; Admin Dose 2 MG; Start 05/04/16 at 07:30 Docusate Sodium (Colace) 100 mg Q12H PRN PO CONSTIPATION; Start 05/04/16 at 07 :30 Ondansetron HCl (Zofran Inj) 4 mg Q6H PRN IV NAUSEA AND/OR VOMITING Last administered on 05/05/16at 17:56; Admin Dose 4 MG; Start 05/04/16 at 07:30 Lorazepam (Ativan) 0.5 mg Q6H PRN IV ANXIETY Last administered on 05/06/16at 23 :58; Admin Dose 0.5 MG; Start 05/04/16 at 07:30 Hydralazine HCl (Apresoline) 10 mg Q6H PRN IV ELEVATED BLOOD PRESSURE; Start 05/04/16 at 07:30 Nitroglycerin (Nitroglycerin (Sl Tab) 0.4 Mg) 1 tab Q5M PRN SL ANGINA; Start 05/04/16 at 07:30 Acetaminophen (Tylenol Supp) 650 mg Q4 PRN [place] PAIN OR TEMP ABOVE 38C; Start at 07:30 Atorvastatin Calcium (Lipitor) 20 mg QHS GTB Last administered on 05/10/16at 22 :38; Admin Dose 20 MG; Start 05/04/16 at 21:00 Bisacodyl (Dulcolax Supp) 10 mg Q24H PRN [place] CONSTIPATION; Start 05/04/16 at 07 :30 Levetiracetam (Keppra Liquid) 1,000 mg Q12 GTB Last administered on 05/11/16at 09:42; Admin Dose 1,000 MG; Start 05/04/16 at 09:00 Senna (Senokot) 2 tab DAILY GTB Last administered on 05/10/16at 10:11; Admin Dose 2 TAB; Start 05/04/16 at 09:00 Multivitamins (Thera-Plus) 5 ml DAILY GTB Last administered on 05/11/16at 09:47 ; Admin Dose 5 ML; Start 05/04/16 at 09:00 Miscellaneous Information 1 ea NOTE XX ; Start 05/04/16 at 09:00 Glucose (Glutose) 15 gm Q15M PRN PO DECREASED GLUCOSE; Start 05/04/16 at 09:00 Glucose (Glutose) 22.5 gm Q15M PRN PO DECREASED GLUCOSE; Start 05/04/16 at 09: 00 Dextrose (D50w Syringe) 25 ml Q15M PRN IV DECREASED GLUCOSE; Start 05/04/16 at 09:00 Dextrose (D50w Syringe) 50 ml Q15M PRN IV DECREASED GLUCOSE; Start 05/04/16 at 09:00 Glucagon (Glucagen) 1 mg Q15M PRN IM DECREASED GLUCOSE; Start 05/04/16 at 09: 00 Glucose (Glutose) 15 gm Q15M PRN BUCCAL DECREASED GLUCOSE; Start 05/04/16 at 09:00 Acetaminophen (Tylenol Liquid) 650 mg Q6H PRN GTB PAIN LEVEL 1-3 OR FEVER Last administered on 05/11/16at 06:39; Admin Dose 650 MG; Start 05/04/16 at 18:30 Metronidazole (Flagyl) 500 mg Q8 GTB Last administered on 05/11/16at 14:37; Admin Dose 500 MG; Start 05/05/16 at 14:00 Collagenase (Santyl) APPLY TO NECROTIC TISSUE DAILY TOP Last administered on 09:42; Admin Dose 1 APPLIC; Start 05/06/16 at 16:30 Collagenase (Santyl) APPLY TO NECROTIC AREA PRN PRN TOP SOILING; Start at 16:00 Insulin Glargine (Lantus) 10 unit QPM SC Last administered on 05/10/16at 22:51 ; Admin Dose 10 UNIT; Start 05/07/16 at 21:00 Insulin Aspart (Novolog Insulin Pen) NOVOLOG *MODERATE* ALGORITHM Q6 SC Last administered on 05/11/16 12:01; Admin Dose 6 UNIT; Start 05/09/16 at 12:00 Aspirin 81 mg 81 mg DAILY GTB Last administered on 05/11/16 09:41; Admin Dose 81 MG; Start 05/10/16 at 09:00 Tigecycline/ Sodium Chloride (Tygacil/NS) 100 ml @ 200 mls/hr Q12 IVPB Last administered on 05/11/16 09:42; Admin Dose 200 MLS/HR; Start 05/10/16 at 06: 00 Miconazole Nitrate (Miconazole 2% Vag Cr) 1 applic HS VAG Last administered on 05/10/16at 21:00; Admin Dose 1 APPLIC; Start 05/09/16 at 21:00; Stop 05/12/16 at 21:00 Ascorbic Acid (Vitamin C) 500 mg DAILY GTB Last administered on 05/11/16 09: 41; Admin Dose 500 MG; Start 05/10/16 at 11:00 Citric Acid/ Sodium Citrate (Bicitra) 30 ml BID GTB Last administered on 09:42; Admin Dose 30 ML; Start 05/10/16 at 11:00 Clonidine (Catapres) 0.1 mg Q6 GTB Last administered on 05/10/16at 12:33; Admin Dose 0.1 MG; Start 05/10/16 at 12:00 Famotidine (Pepcid) 20 mg DAILY GTB Last administered on 05/11/16 09:41; Admin Dose 20 MG; Start 05/10/16 at 11:00 Acetaminophen/ Hydrocodone Bitart ([place] (5/325)) 1 tab Q6H PRN GTB MODERATE PAIN LEVEL 4-6; Start 05/10/16 at 13:30 Magnesium Hydroxide (Milk Of Mag) 30 ml DAILY PRN GTB CONSTIPATION; Start at 10:00 Voriconazole (Vfend) 200 mg BID GTB Last administered on 05/11/16 09:41; Admin Dose 200 MG; Start 05/10/16 at 11:00 Hydralazine HCl (Apresoline) 25 mg Q6 GTB Last administered on 05/10/16at 12:32 ; Admin Dose 25 MG; Start 05/10/16 at 12:00 Metoclopramide HCl 10 mg 10 mg Q6 GTB Last administered on 05/11/16at 12:07; Admin Dose 10 MG; Start 05/10/16 at 18:00 Dextrose/Sodium Chloride (D5-1/2ns) 1,000 ml @ 75 mls/hr [id number] IV Last administered on 05/11/16at 15:44; Admin Dose 75 MLS/HR; Start 05/10/16 at 22:00 Assessment/Plan Chief Complaint/Hosp Course IMPRESSION AND PLAN: 1. Status post Septic shock, likely secondary to urinary tract infection. Persistent leukocytosis 2. Chronic encephalopathy. 3. History of hemorrhagic cerebrovascular accident. 4. Vent dependent respiratory failure. 5. Severe metabolic acidosis. 6. Anemia likely of chronic disease plus hemodilution The patient will need: 1. Monitor H&H 2. Gentle hydration 3. Broad spectrum antibiotics. 4. Deep venous thrombosis and gastrointestinal prophylaxis. 5. Intravenous bicarbonate needed 6. Tube feeding as tolerated Prognosis very poor, consider palliative care eval Consider discharge back to half-way facility Problems: JIMMY GONSALEZ MD, [facility] May 11, 2016 16:59
--- NOTE | 2016-05-11 19:52 | CONS ---
Date/Time of Note Date/Time of Note DATE: 05/11/16 TIME: 19:51 Assessment/Plan Assessment/Plan Chief Complaint/Hosp Course IMPRESSION: 1. Patient has [id number] kidney disease. 2. Acute renal failure due to dehydration. 3. Underlying acute tubular necrosis due to sepsis. 4. Severe sepsis. 5. hypernatremia. 6. Free water deficit. 7. Hypokalemia. 8. Lactic acidosis. 9. Normal alkaline phosphatase. 10. Anemia. 11. History of tracheostomy. 12 METABOLIC ACIDOSIS PLAN KCL CK LABS NAHCO3 BICITRA WATER G TUBE CK BMP Problems: Consultation Date/Type/Reason Admit Date/Time May 04, 2016 at 05:51 Type of Consultation: renal Exam/Review of Systems Vital Signs Vitals Vital Signs Date Time Temp Pulse Resp B/P Pulse Ox O2 Delivery O2 Flow Rate FiO2 05/11/16 17:43 91 96/53 05/11/16 17:00 19 100 40 05/11/16 15:40 98.9 05/11/16 04:00 Mechanical Ventilator Intake and Output 05/10/16 05/10/16 05/11/16 15:00 23:00 07:00 Intake Total 180 ml 1200 ml Output Total 650 ml 600 ml Balance -470 ml 600 ml Exam Respiratory: diminished breath sounds Cardiovascular: regular rate and rhythm Gastrointestinal: soft Extremities: edema (+) Results Result Diagram: 05/11/16 1052 05/11/16 1052 Results 24 hrs Laboratory Tests Test 05/10/16 21:57 05/11/16 06:33 05/11/16 06:41 05/11/16 10:52 Bedside Glucose 154 192 Lab Scanned Report REFERENCE LAB Anion Gap 15 Basophils # 0.0 Basophils % 0.3 Blood Morphology Comment Blood Urea Nitrogen 60 H Calcium Level 7.5 L Carbon Dioxide Level 18 L Chloride Level 119 H Creatinine 1.76 H Eosinophils # 0.3 Eosinophils % 2.4 Glucose Level 198 Hematocrit 27.3 L Hemoglobin 9.0 L Lymphocytes # 1.9 Lymphocytes % 14.6 L Mean Corpuscular Hemoglobin 29.9 Mean Corpuscular Hemoglobin Concent 32.9 Mean Corpuscular Volume 90.8 Mean Platelet Volume 9.1 Monocytes # 0.3 Monocytes % 2.6 Neutrophils # 10.3 H Neutrophils % 80.1 H Nucleated Red Blood Cells # 0.0 Nucleated Red Blood Cells % 0.0 Platelet Count 282 Potassium Level 3.5 Red Blood Count 3.01 L Red Cell Distribution Width 16.3 H Sodium Level 148 H White Blood Count 12.9 H Test 05/11/16 11:57 05/11/16 17:35 Bedside Glucose 224 H 178 Medications Medications Current Medications Morphine Sulfate (morphine) 2 mg Q4H PRN IV SEVERE PAIN LEVEL 7-10 Last administered on 05/07/16 18:26; Admin Dose 2 MG; Start 05/04/16 at 07:30 Docusate Sodium (Colace) 100 mg Q12H PRN PO CONSTIPATION; Start 05/04/16 at 07 :30 Ondansetron HCl (Zofran Inj) 4 mg Q6H PRN IV NAUSEA AND/OR VOMITING Last administered on 05/05/16at 17:56; Admin Dose 4 MG; Start 05/04/16 at 07:30 Lorazepam (Ativan) 0.5 mg Q6H PRN IV ANXIETY Last administered on 05/06/16at 23 :58; Admin Dose 0.5 MG; Start 05/04/16 at 07:30 Hydralazine HCl (Apresoline) 10 mg Q6H PRN IV ELEVATED BLOOD PRESSURE; Start 05/04/16 at 07:30 Nitroglycerin (Nitroglycerin (Sl Tab) 0.4 Mg) 1 tab Q5M PRN SL ANGINA; Start 05/04/16 at 07:30 Acetaminophen (Tylenol Supp) 650 mg Q4 PRN [place] PAIN OR TEMP ABOVE 38C; Start at 07:30 Atorvastatin Calcium (Lipitor) 20 mg QHS GTB Last administered on 05/10/16at 22 :38; Admin Dose 20 MG; Start 05/04/16 at 21:00 Bisacodyl (Dulcolax Supp) 10 mg Q24H PRN [place] CONSTIPATION; Start 05/04/16 at 07 :30 Levetiracetam (Keppra Liquid) 1,000 mg Q12 GTB Last administered on 05/11/16at 09:42; Admin Dose 1,000 MG; Start 05/04/16 at 09:00 Senna (Senokot) 2 tab DAILY GTB Last administered on 05/10/16at 10:11; Admin Dose 2 TAB; Start 05/04/16 at 09:00 Multivitamins (Thera-Plus) 5 ml DAILY GTB Last administered on 05/11/16at 09:47 ; Admin Dose 5 ML; Start 05/04/16 at 09:00 Miscellaneous Information 1 ea NOTE XX ; Start 05/04/16 at 09:00 Glucose (Glutose) 15 gm Q15M PRN PO DECREASED GLUCOSE; Start 05/04/16 at 09:00 Glucose (Glutose) 22.5 gm Q15M PRN PO DECREASED GLUCOSE; Start 05/04/16 at 09: 00 Dextrose (D50w Syringe) 25 ml Q15M PRN IV DECREASED GLUCOSE; Start 05/04/16 at 09:00 Dextrose (D50w Syringe) 50 ml Q15M PRN IV DECREASED GLUCOSE; Start 05/04/16 at 09:00 Glucagon (Glucagen) 1 mg Q15M PRN IM DECREASED GLUCOSE; Start 05/04/16 at 09: 00 Glucose (Glutose) 15 gm Q15M PRN BUCCAL DECREASED GLUCOSE; Start 05/04/16 at 09:00 Acetaminophen (Tylenol Liquid) 650 mg Q6H PRN GTB PAIN LEVEL 1-3 OR FEVER Last administered on 05/11/16at 06:39; Admin Dose 650 MG; Start 05/04/16 at 18:30 Metronidazole (Flagyl) 500 mg Q8 GTB Last administered on 05/11/16at 14:37; Admin Dose 500 MG; Start 05/05/16 at 14:00 Collagenase (Santyl) APPLY TO NECROTIC TISSUE DAILY TOP Last administered on at 09:42; Admin Dose 1 APPLIC; Start 05/06/16 at 16:30 Collagenase (Santyl) APPLY TO NECROTIC AREA PRN PRN TOP SOILING; Start at 16:00 Insulin Glargine (Lantus) 10 unit QPM SC Last administered on 05/10/16at 22:51 ; Admin Dose 10 UNIT; Start 05/07/16 at 21:00 Insulin Aspart (Novolog Insulin Pen) NOVOLOG *MODERATE* ALGORITHM Q6 SC Last administered on 05/11/16at 17:40; Admin Dose 2 UNIT; Start 05/09/16 at 12:00 Aspirin 81 mg 81 mg DAILY GTB Last administered on 05/11/16at 09:41; Admin Dose 81 MG; Start 05/10/16 at 09:00 Tigecycline/ Sodium Chloride (Tygacil/NS) 100 ml @ 200 mls/hr Q12 IVPB Last administered on 05/11/16 09:42; Admin Dose 200 MLS/HR; Start 05/10/16 at 06: 00 Miconazole Nitrate (Miconazole 2% Vag Cr) 1 applic HS VAG Last administered on 05/10/16at 21:00; Admin Dose 1 APPLIC; Start 05/09/16 at 21:00; Stop 05/12/16 at 21:00 Ascorbic Acid (Vitamin C) 500 mg DAILY GTB Last administered on 05/11/16 09: 41; Admin Dose 500 MG; Start 05/10/16 at 11:00 Citric Acid/ Sodium Citrate (Bicitra) 30 ml BID GTB Last administered on 09:42; Admin Dose 30 ML; Start 05/10/16 at 11:00 Clonidine (Catapres) 0.1 mg Q6 GTB Last administered on 05/10/16at 12:33; Admin Dose 0.1 MG; Start 05/10/16 at 12:00 Famotidine (Pepcid) 20 mg DAILY GTB Last administered on 05/11/16 09:41; Admin Dose 20 MG; Start 05/10/16 at 11:00 Acetaminophen/ Hydrocodone Bitart ([place] (5/325)) 1 tab Q6H PRN GTB MODERATE PAIN LEVEL 4-6; Start 05/10/16 at 13:30 Magnesium Hydroxide (Milk Of Mag) 30 ml DAILY PRN GTB CONSTIPATION; Start at 10:00 Voriconazole (Vfend) 200 mg BID GTB Last administered on 05/11/16 09:41; Admin Dose 200 MG; Start 05/10/16 at 11:00 Hydralazine HCl (Apresoline) 25 mg Q6 GTB Last administered on 05/10/16at 12:32 ; Admin Dose 25 MG; Start 05/10/16 at 12:00 Metoclopramide HCl 10 mg 10 mg Q6 GTB Last administered on 05/11/16 17:42; Admin Dose 10 MG; Start 05/10/16 at 18:00 Dextrose/Sodium Chloride (D5-1/2ns) 1,000 ml @ 75 mls/hr [id number] IV Last administered on 12/20/16at 15:44; Admin Dose 75 MLS/HR; Start 05/10/16 at 22:00 AMBER LIEBERMAN MD May 11, 2016 19:51
[2016-05-11] MEDS: MICONAZOLE 2% 45 GM VAG CR VAG SCH (21:50)
[2016-05-11] MEDS: ATORVASTATIN 20 MG TAB GTB SCH (21:50)
[2016-05-12] VITALS (27 sets, daily range): BP systolic 95–133; BP diastolic 52–74; PULSE 66–95; RESP 14–25
[2016-05-12] MEDS: INSULIN GLARGINE [LANtus] 3 ML PEN SC SCH ×2 (00:06→22:04)
[2016-05-12] MEDS: METOCLOPRAMIDE (1 MG/ML) 10 ML CUP GTB SCH ×4 (00:08→17:49)
[2016-05-12] MEDS: metroNIDAZOLE 500 MG TAB GTB SCH ×3 (06:39→21:57)
[2016-05-12] MEDS: INSULIN ASPART [NOVOLOG] 3 ML PEN SC SCH ×4 (06:41→17:48)
[2016-05-12 07:42] LABS: BASOPHILS % 0.3 % (0.0-2.0); EOSINOPHILS # 0.4 10^3/ul (0.0-0.5); EOSINOPHILS % 3.3 % (0.0-7.0); HEMATOCRIT 26.7 % (37.0-47.0); HEMOGLOBIN 8.9 g/dl (12.0-16.0); LYMPHOCYTES # 1.8 10^3/ul (0.8-2.9); LYMPHOCYTES % 15.2 % (15.0-51.0); MEAN CORPUSCULAR HEMOGLOBIN 30.4 pg (29.0-33.0); MEAN CORPUSCULAR HGB CONC 33.5 g/dl (32.0-37.0); MEAN CORPUSCULAR VOLUME 90.9 fl (82.0-101.0); MEAN PLATELET VOLUME 7.7 fl (7.4-10.4); MONOCYTE # 0.4 10^3/ul (0.3-0.9); MONOCYTES % 3.1 % (0.0-11.0); NEUTROPHIL # 9.2 10^3/ul (1.6-7.5); NEUTROPHILS % 78.1 % (39.0-77.0); PLATELET COUNT 308 10^3/UL (140-440); RED BLOOD COUNT 2.93 10^6/ul (4.20-5.40); RED CELL DISTRIBUTION WIDTH 16.6 % (11.5-14.5); UNCORRECTED WBC 11.8 10^3/ul (4.8-10.8); WHITE BLOOD COUNT 11.8 10^3/ul (4.8-10.8)
[2016-05-12 07:44] LABS: CONDITION 1; LH ANALYZER COMMENTS 1
[2016-05-12 08:06] LABS: POTASSIUM 3.1 mmol/L (3.5-5.1)
[2016-05-12 08:09] LABS: CREATININE 1.53 mg/dl (0.44-1.00)
[2016-05-12 08:10] LABS: CALCIUM 7.3 mg/dl (8.4-10.2)
[2016-05-12] MEDS: TIGECYCLINE 50 MG in SOD CHLORIDE 0.9% 100 ML IVPB SCH ×2 (09:38→21:56)
[2016-05-12] MEDS: ASCORBIC ACID 500 MG TAB GTB SCH (09:40)
[2016-05-12] MEDS: FAMOTIDINE 20 MG TAB GTB SCH (09:40)
[2016-05-12] MEDS: ASPIRIN 81 MG TAB GTB SCH (09:40)
[2016-05-12] MEDS: SENNA TAB GTB SCH (09:40)
[2016-05-12] MEDS: VORICONAZOLE 200 MG TAB GTB SCH ×2 (09:40→21:57)
[2016-05-12] MEDS: LEVETIRACETAM (100 MG/ML) 5ML CUP GTB SCH ×2 (09:41→21:57)
[2016-05-12] MEDS: MULTIVITAMINS 5 ML CUP GTB SCH (09:41)
[2016-05-12] MEDS: CITRIC ACID/NA CITRATE 30 ML CUP GTB SCH ×2 (09:41→21:56)
[2016-05-12] MEDS: COLLAGENASE 30 GM TUBE TOP SCH (09:42)
--- NOTE | 2016-05-12 11:24 | CONS ---
Date/Time of Note Date/Time of Note DATE: 05/12/16 TIME: 11:22 Consult Date/Type/Reason Admit Date/Time May 04, 2016 at 05:51 Type of Consultation: Pulm Subjective No new events. Remains on vent. Objective Vital Signs Date Time Temp Pulse Resp B/P Pulse Ox O2 Delivery O2 Flow Rate FiO2 05/12/16 10:49 98.6 94 20 113/70 96 05/12/16 09:45 40 05/12/16 04:00 Mechanical Ventilator Intake and Output 05/11/16 05/11/16 05/12/16 15:00 23:00 07:00 Intake Total 1130 ml Output Total 850 ml Balance 280 ml PHYSICAL EXAMINATION: GENERAL: Chronically ill appearing lady on mechanical ventilation, appears comfortable at rest VITAL SIGNS: As above. NECK: Supple. No JVD or lymphadenopathy. HEENT: Trach site clean and intact. CARDIAC: S1, S2, no added sounds or murmurs. CHEST: Diminished air entry bilaterally. ABDOMEN: Soft, nontender. No guarding or rebound. EXTREMITIES: No cyanosis, clubbing, edema +2 NEUROLOGIC: Unable to assess. Results/Medications Result Diagram: 05/12/16 0654 05/12/16 0654 Results 24 hrs Laboratory Tests Test 05/11/16 11:57 05/11/16 17:35 05/11/16 21:47 05/12/16 06:37 Bedside Glucose 224 H 178 165 173 Test 05/12/16 06:54 Anion Gap 15 Basophils # 0.0 Basophils % 0.3 Blood Morphology Comment Blood Urea Nitrogen 53 H Calcium Level 7.3 L Carbon Dioxide Level 18 L Chloride Level 120 H Creatinine 1.53 H Eosinophils # 0.4 Eosinophils % 3.3 Glucose Level 158 Hematocrit 26.7 L Hemoglobin 8.9 L Lymphocytes # 1.8 Lymphocytes % 15.2 Mean Corpuscular Hemoglobin 30.4 Mean Corpuscular Hemoglobin Concent 33.5 Mean Corpuscular Volume 90.9 Mean Platelet Volume 7.7 Monocytes # 0.4 Monocytes % 3.1 Neutrophils # 9.2 H Neutrophils % 78.1 H Nucleated Red Blood Cells # 0.0 Nucleated Red Blood Cells % 0.0 Platelet Count 308 Potassium Level 3.1 L Red Blood Count 2.93 L Red Cell Distribution Width 16.6 H Sodium Level 150 H White Blood Count 11.8 H Medications Current Medications Morphine Sulfate (morphine) 2 mg Q4H PRN IV SEVERE PAIN LEVEL 7-10 Last administered on 05/07/16 18:26; Admin Dose 2 MG; Start 05/04/16 at 07:30 Docusate Sodium (Colace) 100 mg Q12H PRN PO CONSTIPATION; Start 05/04/16 at 07 :30 Ondansetron HCl (Zofran Inj) 4 mg Q6H PRN IV NAUSEA AND/OR VOMITING Last administered on 05/05/16at 17:56; Admin Dose 4 MG; Start 05/04/16 at 07:30 Lorazepam (Ativan) 0.5 mg Q6H PRN IV ANXIETY Last administered on 05/06/16at 23 :58; Admin Dose 0.5 MG; Start 05/04/16 at 07:30 Hydralazine HCl (Apresoline) 10 mg Q6H PRN IV ELEVATED BLOOD PRESSURE; Start 05/04/16 at 07:30 Nitroglycerin (Nitroglycerin (Sl Tab) 0.4 Mg) 1 tab Q5M PRN SL ANGINA; Start 05/04/16 at 07:30 Acetaminophen (Tylenol Supp) 650 mg Q4 PRN [place] PAIN OR TEMP ABOVE 38C; Start at 07:30 Atorvastatin Calcium (Lipitor) 20 mg QHS GTB Last administered on 05/11/16at 21 :50; Admin Dose 20 MG; Start 05/04/16 at 21:00 Bisacodyl (Dulcolax Supp) 10 mg Q24H PRN [place] CONSTIPATION; Start 05/04/16 at 07 :30 Levetiracetam (Keppra Liquid) 1,000 mg Q12 GTB Last administered on 05/12/16at 09:41; Admin Dose 1,000 MG; Start 05/04/16 at 09:00 Senna (Senokot) 2 tab DAILY GTB Last administered on 05/12/16at 09:40; Admin Dose 2 TAB; Start 05/04/16 at 09:00 Multivitamins (Thera-Plus) 5 ml DAILY GTB Last administered on 05/12/16at 09:41 ; Admin Dose 5 ML; Start 05/04/16 at 09:00 Miscellaneous Information 1 ea NOTE XX ; Start 05/04/16 at 09:00 Glucose (Glutose) 15 gm Q15M PRN PO DECREASED GLUCOSE; Start 05/04/16 at 09:00 Glucose (Glutose) 22.5 gm Q15M PRN PO DECREASED GLUCOSE; Start 05/04/16 at 09: 00 Dextrose (D50w Syringe) 25 ml Q15M PRN IV DECREASED GLUCOSE; Start 05/04/16 at 09:00 Dextrose (D50w Syringe) 50 ml Q15M PRN IV DECREASED GLUCOSE; Start 05/04/16 at 09:00 Glucagon (Glucagen) 1 mg Q15M PRN IM DECREASED GLUCOSE; Start 05/04/16 at 09: 00 Glucose (Glutose) 15 gm Q15M PRN BUCCAL DECREASED GLUCOSE; Start 05/04/16 at 09:00 Acetaminophen (Tylenol Liquid) 650 mg Q6H PRN GTB PAIN LEVEL 1-3 OR FEVER Last administered on 05/11/16at 06:39; Admin Dose 650 MG; Start 05/04/16 at 18:30 Metronidazole (Flagyl) 500 mg Q8 GTB Last administered on 05/12/16at 06:39; Admin Dose 500 MG; Start 05/05/16 at 14:00 Collagenase (Santyl) APPLY TO NECROTIC TISSUE DAILY TOP Last administered on at 09:42; Admin Dose 1 APPLIC; Start 05/06/16 at 16:30 Collagenase (Santyl) APPLY TO NECROTIC AREA PRN PRN TOP SOILING; Start at 16:00 Insulin Glargine (Lantus) 10 unit QPM SC Last administered on 05/12/16at 00:06 ; Admin Dose 10 UNIT; Start 05/07/16 at 21:00 Insulin Aspart (Novolog Insulin Pen) NOVOLOG *MODERATE* ALGORITHM Q6 SC Last administered on 05/12/16at 06:41; Admin Dose 2 UNIT; Start 05/09/16 at 12:00 Aspirin 81 mg 81 mg DAILY GTB Last administered on 05/12/16at 09:40; Admin Dose 81 MG; Start 05/10/16 at 09:00 Tigecycline/ Sodium Chloride (Tygacil/NS) 100 ml @ 200 mls/hr Q12 IVPB Last administered on 05/12/16at 09:38; Admin Dose 200 MLS/HR; Start 05/10/16 at 06: 00 Miconazole Nitrate (Miconazole 2% Vag Cr) 1 applic HS VAG Last administered on 05/11/16at 21:50; Admin Dose 1 APPLIC; Start 05/09/16 at 21:00; Stop 05/12/16 at 21:00 Ascorbic Acid (Vitamin C) 500 mg DAILY GTB Last administered on 05/12/16at 09: 40; Admin Dose 500 MG; Start 05/10/16 at 11:00 Citric Acid/ Sodium Citrate (Bicitra) 30 ml BID GTB Last administered on 09:41; Admin Dose 30 ML; Start 05/10/16 at 11:00 Clonidine (Catapres) 0.1 mg Q6 GTB Last administered on 05/10/16at 12:33; Admin Dose 0.1 MG; Start 05/10/16 at 12:00 Famotidine (Pepcid) 20 mg DAILY GTB Last administered on 05/12/16at 09:40; Admin Dose 20 MG; Start 05/10/16 at 11:00 Acetaminophen/ Hydrocodone Bitart ([place] (5/325)) 1 tab Q6H PRN GTB MODERATE PAIN LEVEL 4-6; Start 05/10/16 at 13:30 Magnesium Hydroxide (Milk Of Mag) 30 ml DAILY PRN GTB CONSTIPATION; Start at 10:00 Voriconazole (Vfend) 200 mg BID GTB Last administered on 05/12/16at 09:40; Admin Dose 200 MG; Start 05/10/16 at 11:00 Hydralazine HCl (Apresoline) 25 mg Q6 GTB Last administered on 05/10/16at 12:32 ; Admin Dose 25 MG; Start 05/10/16 at 12:00 Metoclopramide HCl 10 mg 10 mg Q6 GTB Last administered on 05/12/16at 06:39; Admin Dose 10 MG; Start 05/10/16 at 18:00 Dextrose/Sodium Chloride (D5-1/2ns) 1,000 ml @ 75 mls/hr [id number] IV Last administered on 05/11/16at 15:44; Admin Dose 75 MLS/HR; Start 05/10/16 at 22:00 ; Stop 05/12/16 at 11:30 Assessment/Plan Chief Complaint/Hosp Course IMPRESSION AND PLAN: 1. Status post Septic shock, likely secondary to urinary tract infection. Persistent leukocytosis, little better. 2. Chronic encephalopathy. 3. History of hemorrhagic cerebrovascular accident. 4. Vent dependent respiratory failure. 5. Severe metabolic acidosis. 6. Anemia likely of chronic disease plus hemodilution The patient will need: 1. Monitor H&H 2. Gentle hydration 3. Broad spectrum antibiotics. 4. Deep venous thrombosis and gastrointestinal prophylaxis. 5. Intravenous bicarbonate needed 6. Tube feeding as tolerated Prognosis very poor, consider palliative care eval Consider discharge back to [facility] facility Problems: JIMMY GONSALEZ MD, [facility] May 12, 2016 11:24
--- NOTE | 2016-05-12 12:28 | CONS ---
Date/Time of Note Date/Time of Note DATE: 05/12/16 TIME: 12:28 Consult Date/Type/Reason Admit Date/Time May 04, 2016 at 05:51 Type of Consultation: ID Subjective no events, looks comfortable, no fevers, nad Objective Vital Signs Date Time Temp Pulse Resp B/P Pulse Ox O2 Delivery O2 Flow Rate FiO2 05/12/16 11:20 95 16 100 40 05/12/16 10:49 98.6 113/70 05/12/16 04:00 Mechanical Ventilator Intake and Output 05/11/16 05/11/16 05/12/16 15:00 23:00 07:00 Intake Total 1130 ml Output Total 850 ml Balance 280 ml Results/Medications Result Diagram: 05/12/16 0654 05/12/16 0654 Results 24 hrs Laboratory Tests Test 05/11/16 17:35 05/11/16 21:47 05/12/16 06:37 05/12/16 06:54 Bedside Glucose 178 165 173 Anion Gap 15 Basophils # 0.0 Basophils % 0.3 Blood Morphology Comment Blood Urea Nitrogen 53 H Calcium Level 7.3 L Carbon Dioxide Level 18 L Chloride Level 120 H Creatinine 1.53 H Eosinophils # 0.4 Eosinophils % 3.3 Glucose Level 158 Hematocrit 26.7 L Hemoglobin 8.9 L Lymphocytes # 1.8 Lymphocytes % 15.2 Mean Corpuscular Hemoglobin 30.4 Mean Corpuscular Hemoglobin Concent 33.5 Mean Corpuscular Volume 90.9 Mean Platelet Volume 7.7 Monocytes # 0.4 Monocytes % 3.1 Neutrophils # 9.2 H Neutrophils % 78.1 H Nucleated Red Blood Cells # 0.0 Nucleated Red Blood Cells % 0.0 Platelet Count 308 Potassium Level 3.1 L Red Blood Count 2.93 L Red Cell Distribution Width 16.6 H Sodium Level 150 H White Blood Count 11.8 H Test 05/12/16 11:52 Bedside Glucose 172 Medications Current Medications Morphine Sulfate (morphine) 2 mg Q4H PRN IV SEVERE PAIN LEVEL 7-10 Last administered on 05/07/16at 18:26; Admin Dose 2 MG; Start 05/04/16 at 07:30 Docusate Sodium (Colace) 100 mg Q12H PRN PO CONSTIPATION; Start 05/04/16 at 07 :30 Ondansetron HCl (Zofran Inj) 4 mg Q6H PRN IV NAUSEA AND/OR VOMITING Last administered on 05/05/16at 17:56; Admin Dose 4 MG; Start 05/04/16 at 07:30 Lorazepam (Ativan) 0.5 mg Q6H PRN IV ANXIETY Last administered on 05/06/16at 23 :58; Admin Dose 0.5 MG; Start 05/04/16 at 07:30 Hydralazine HCl (Apresoline) 10 mg Q6H PRN IV ELEVATED BLOOD PRESSURE; Start 05/04/16 at 07:30 Nitroglycerin (Nitroglycerin (Sl Tab) 0.4 Mg) 1 tab Q5M PRN SL ANGINA; Start 05/04/16 at 07:30 Acetaminophen (Tylenol Supp) 650 mg Q4 PRN [place] PAIN OR TEMP ABOVE 38C; Start at 07:30 Atorvastatin Calcium (Lipitor) 20 mg QHS GTB Last administered on 05/11/16at 21 :50; Admin Dose 20 MG; Start 05/04/16 at 21:00 Bisacodyl (Dulcolax Supp) 10 mg Q24H PRN [place] CONSTIPATION; Start 05/04/16 at 07 :30 Levetiracetam (Keppra Liquid) 1,000 mg Q12 GTB Last administered on 05/12/16at 09:41; Admin Dose 1,000 MG; Start 05/04/16 at 09:00 Senna (Senokot) 2 tab DAILY GTB Last administered on 05/12/16at 09:40; Admin Dose 2 TAB; Start 05/04/16 at 09:00 Multivitamins (Thera-Plus) 5 ml DAILY GTB Last administered on 05/12/16at 09:41 ; Admin Dose 5 ML; Start 05/04/16 at 09:00 Miscellaneous Information 1 ea NOTE XX ; Start 05/04/16 at 09:00 Glucose (Glutose) 15 gm Q15M PRN PO DECREASED GLUCOSE; Start 05/04/16 at 09:00 Glucose (Glutose) 22.5 gm Q15M PRN PO DECREASED GLUCOSE; Start 05/04/16 at 09: 00 Dextrose (D50w Syringe) 25 ml Q15M PRN IV DECREASED GLUCOSE; Start 05/04/16 at 09:00 Dextrose (D50w Syringe) 50 ml Q15M PRN IV DECREASED GLUCOSE; Start 05/04/16 at 09:00 Glucagon (Glucagen) 1 mg Q15M PRN IM DECREASED GLUCOSE; Start 05/04/16 at 09: 00 Glucose (Glutose) 15 gm Q15M PRN BUCCAL DECREASED GLUCOSE; Start 05/04/16 at 09:00 Acetaminophen (Tylenol Liquid) 650 mg Q6H PRN GTB PAIN LEVEL 1-3 OR FEVER Last administered on 05/11/16at 06:39; Admin Dose 650 MG; Start 05/04/16 at 18:30 Metronidazole (Flagyl) 500 mg Q8 GTB Last administered on 05/12/16at 06:39; Admin Dose 500 MG; Start 05/05/16 at 14:00 Collagenase (Santyl) APPLY TO NECROTIC TISSUE DAILY TOP Last administered on at 09:42; Admin Dose 1 APPLIC; Start 05/06/16 at 16:30 Collagenase (Santyl) APPLY TO NECROTIC AREA PRN PRN TOP SOILING; Start at 16:00 Insulin Glargine (Lantus) 10 unit QPM SC Last administered on 05/12/16at 00:06 ; Admin Dose 10 UNIT; Start 05/07/16 at 21:00 Insulin Aspart (Novolog Insulin Pen) NOVOLOG *MODERATE* ALGORITHM Q6 SC Last administered on 05/12/16at 12:05; Admin Dose 2 UNIT; Start 05/09/16 at 12:00 Aspirin 81 mg 81 mg DAILY GTB Last administered on 05/12/16at 09:40; Admin Dose 81 MG; Start 05/10/16 at 09:00 Tigecycline/ Sodium Chloride (Tygacil/NS) 100 ml @ 200 mls/hr Q12 IVPB Last administered on 05/12/16at 09:38; Admin Dose 200 MLS/HR; Start 05/10/16 at 06: 00 Miconazole Nitrate (Miconazole 2% Vag Cr) 1 applic HS VAG Last administered on 05/11/16at 21:50; Admin Dose 1 APPLIC; Start 05/09/16 at 21:00; Stop 05/12/16 at 21:00 Ascorbic Acid (Vitamin C) 500 mg DAILY GTB Last administered on 05/12/16at 09: 40; Admin Dose 500 MG; Start 05/10/16 at 11:00 Citric Acid/ Sodium Citrate (Bicitra) 30 ml BID GTB Last administered on at 09:41; Admin Dose 30 ML; Start 05/10/16 at 11:00 Clonidine (Catapres) 0.1 mg Q6 GTB Last administered on 05/10/16at 12:33; Admin Dose 0.1 MG; Start 05/10/16 at 12:00 Famotidine (Pepcid) 20 mg DAILY GTB Last administered on 05/12/16at 09:40; Admin Dose 20 MG; Start 05/10/16 at 11:00 Acetaminophen/ Hydrocodone Bitart ([place] (5/325)) 1 tab Q6H PRN GTB MODERATE PAIN LEVEL 4-6; Start 05/10/16 at 13:30 Magnesium Hydroxide (Milk Of Mag) 30 ml DAILY PRN GTB CONSTIPATION; Start at 10:00 Voriconazole (Vfend) 200 mg BID GTB Last administered on 05/12/16at 09:40; Admin Dose 200 MG; Start 05/10/16 at 11:00 Hydralazine HCl (Apresoline) 25 mg Q6 GTB Last administered on 05/12/16at 12:06 ; Admin Dose 25 MG; Start 05/10/16 at 12:00 Metoclopramide HCl (Reglan Liq) 10 mg Q6 GTB Last administered on 05/12/16at 12 :06; Admin Dose 10 MG; Start 05/10/16 at 18:00 Assessment/Plan Chief Complaint/Hosp Course INDWELLINGS: Trach, PEG, Reynolds, BLEACH PACKER shunt. ANTIMICROBIALS: Tygacil, Flagyl, Voriconazole. PHYSICAL EXAMINATION: GENERAL: This is a chronically ill-appearing, middle-aged woman who is obtunded in no distress. HEENT: Head atraumatic, normocephalic. Sclerae anicteric. Buccal mucosa dry. NECK: Supple. Tracheostomy present. CHEST: Rise symmetrical. Breath sounds diminished at the bases. HEART: S1, S2. ABDOMEN: Soft, bowel tones present. EXTREMITIES: Without cyanosis. ASSESSMENT: 1. Severe sepsis with shock. 2. Clostridium difficile colitis. 3. Unstageable sacral decubitus, possible osteomyelitis with a history of multiple debridements. 4. 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 5. Seizure disorder. 6. Chronic encephalopathy. 7. Urinary tract infection with culture grew Deyanira glabrata. PLAN: Clinically unchanged, continue abx, local wound care, pending placement [facility] staff Problems: DUTCH STEELE NP May 12, 2016 12:28
--- NOTE | 2016-05-12 14:23 | PN ---
Date/Time of Note Date/Time of Note DATE: 05/12/16 TIME: 14:21 Assessment/Plan VTE Prophylaxis VTE Prophylaxis Intervention: SCD's Lines/Catheters IV Catheter Type (from Nrsg): Peripheral IV Urinary Cath still in place: Yes Reason Cath still needed: other (indicate) Assessment/Plan Chief Complaint/Hosp Course ASSESSMENT AND PLAN: 1. Sepsis, likely secondary to urinary tract infection versus sacral decubitus. The patient has been started on Tygacil , flagyl, and V.fend as per ID recommendations . Follow up infectious disease recommendations. We'll continue monitor patient blood pressure, off pressors at this time 2. Acute on chronic respiratory failure, Ventilator-dependent respiratory failure, status post trach. Pulmonology has been consulted. 3. Acute renal insufficiency, improving status post IVF, likely secondary to sepsis versus dehydration. nephrology consulted. Continue IV fluids. 4. Diabetes mellitus. Continue sliding scale and Lantus. 5. History of cerebrovascular accident. No acute issues at this time. Patient is bed bound and a phasic 6. Dyslipidemia. Continue Lipitor. 7. Electrolyte imbalance , nephrology following 8. Essential Hypertension, continue to monitor restart blood pressure medications cautiously 9. C. difficile toxin, continue Flagyl 10. Hypokalemia, repleted 11. Hypernatremia, start DW, follow up electrolytes in a.m. We will continue monitor patient closely for recommendation management treatment as per clinical course Condition guarded Continue to monitor in telemetry floor Plan to discharge to half-way facility when bed is available Discharge/transfer antibiotics as per infectious disease, follow-up with infectious disease physician regarding isolation status Problems: Subjective 24 Hr Interval Summary Free Text/Dictation No acute changes Exam/Review of Systems Vital Signs Vitals Vital Signs Date Time Temp Pulse Resp B/P Pulse Ox O2 Delivery O2 Flow Rate FiO2 05/12/16 12:23 94 05/12/16 11:20 16 100 40 05/12/16 10:49 98.6 113/70 05/12/16 04:00 Mechanical Ventilator Intake and Output 05/11/16 05/11/16 05/12/16 15:00 23:00 07:00 Intake Total 1130 ml Output Total 850 ml Balance 280 ml Exam General: The patient is a phasic, on vent via trach, does not respond to any pain or verbal stimuli HEENT: Atraumatic, normocephalic. The pupils are equal Neck: Supple , trach in place Chest: Normal Lungs: Decreased breath sounds bilateral lower lung field, positive crackles Heart: Normal S1-S2, Regular rhythm and rate. Abdomen: Soft , nontender, nondistended , bowel sounds are present. PEG tube in place Extremities: Flaccid, + 2 edema no cyanosis Neurologic: No meaningful neurologic examination findings Skin: Stage IV sacral decubitus Results Result Diagram: 05/12/16 0654 05/12/16 0654 Results 24 hrs Laboratory Tests Test 05/11/16 17:35 05/11/16 21:47 05/12/16 06:37 05/12/16 06:54 Bedside Glucose 178 165 173 Anion Gap 15 Basophils # 0.0 Basophils % 0.3 Blood Morphology Comment Blood Urea Nitrogen 53 H Calcium Level 7.3 L Carbon Dioxide Level 18 L Chloride Level 120 H Creatinine 1.53 H Eosinophils # 0.4 Eosinophils % 3.3 Glucose Level 158 Hematocrit 26.7 L Hemoglobin 8.9 L Lymphocytes # 1.8 Lymphocytes % 15.2 Mean Corpuscular Hemoglobin 30.4 Mean Corpuscular Hemoglobin Concent 33.5 Mean Corpuscular Volume 90.9 Mean Platelet Volume 7.7 Monocytes # 0.4 Monocytes % 3.1 Neutrophils # 9.2 H Neutrophils % 78.1 H Nucleated Red Blood Cells # 0.0 Nucleated Red Blood Cells % 0.0 Platelet Count 308 Potassium Level 3.1 L Red Blood Count 2.93 L Red Cell Distribution Width 16.6 H Sodium Level 150 H White Blood Count 11.8 H Test 05/12/16 11:52 Bedside Glucose 172 Medications Medications Current Medications Morphine Sulfate (morphine) 2 mg Q4H PRN IV SEVERE PAIN LEVEL 7-10 Last administered on 05/07/16at 18:26; Admin Dose 2 MG; Start 05/04/16 at 07:30 Docusate Sodium (Colace) 100 mg Q12H PRN PO CONSTIPATION; Start 05/04/16 at 07 :30 Ondansetron HCl (Zofran Inj) 4 mg Q6H PRN IV NAUSEA AND/OR VOMITING Last administered on 05/05/16at 17:56; Admin Dose 4 MG; Start 05/04/16 at 07:30 Lorazepam (Ativan) 0.5 mg Q6H PRN IV ANXIETY Last administered on 05/06/16at 23 :58; Admin Dose 0.5 MG; Start 05/04/16 at 07:30 Hydralazine HCl (Apresoline) 10 mg Q6H PRN IV ELEVATED BLOOD PRESSURE; Start 05/04/16 at 07:30 Nitroglycerin (Nitroglycerin (Sl Tab) 0.4 Mg) 1 tab Q5M PRN SL ANGINA; Start 05/04/16 at 07:30 Acetaminophen (Tylenol Supp) 650 mg Q4 PRN [place] PAIN OR TEMP ABOVE 38C; Start at 07:30 Atorvastatin Calcium (Lipitor) 20 mg QHS GTB Last administered on 05/11/16at 21 :50; Admin Dose 20 MG; Start 05/04/16 at 21:00 Bisacodyl (Dulcolax Supp) 10 mg Q24H PRN [place] CONSTIPATION; Start 05/04/16 at 07 :30 Levetiracetam (Keppra Liquid) 1,000 mg Q12 GTB Last administered on 05/12/16at 09:41; Admin Dose 1,000 MG; Start 05/04/16 at 09:00 Senna (Senokot) 2 tab DAILY GTB Last administered on 05/12/16at 09:40; Admin Dose 2 TAB; Start 05/04/16 at 09:00 Multivitamins (Thera-Plus) 5 ml DAILY GTB Last administered on 05/12/16at 09:41 ; Admin Dose 5 ML; Start 05/04/16 at 09:00 Miscellaneous Information 1 ea NOTE XX ; Start 05/04/16 at 09:00 Glucose (Glutose) 15 gm Q15M PRN PO DECREASED GLUCOSE; Start 05/04/16 at 09:00 Glucose (Glutose) 22.5 gm Q15M PRN PO DECREASED GLUCOSE; Start 05/04/16 at 09: 00 Dextrose (D50w Syringe) 25 ml Q15M PRN IV DECREASED GLUCOSE; Start 05/04/16 at 09:00 Dextrose (D50w Syringe) 50 ml Q15M PRN IV DECREASED GLUCOSE; Start 05/04/16 at 09:00 Glucagon (Glucagen) 1 mg Q15M PRN IM DECREASED GLUCOSE; Start 05/04/16 at 09: 00 Glucose (Glutose) 15 gm Q15M PRN BUCCAL DECREASED GLUCOSE; Start 05/04/16 at 09:00 Acetaminophen (Tylenol Liquid) 650 mg Q6H PRN GTB PAIN LEVEL 1-3 OR FEVER Last administered on 05/11/16 06:39; Admin Dose 650 MG; Start 05/04/16 at 18:30 Metronidazole (Flagyl) 500 mg Q8 GTB Last administered on 05/12/16 06:39; Admin Dose 500 MG; Start 05/05/16 at 14:00 Collagenase (Santyl) APPLY TO NECROTIC TISSUE DAILY TOP Last administered on 09:42; Admin Dose 1 APPLIC; Start 05/06/16 at 16:30 Collagenase (Santyl) APPLY TO NECROTIC AREA PRN PRN TOP SOILING; Start at 16:00 Insulin Glargine (Lantus) 10 unit QPM SC Last administered on 05/12/16at 00:06 ; Admin Dose 10 UNIT; Start 05/07/16 at 21:00 Insulin Aspart (Novolog Insulin Pen) NOVOLOG *MODERATE* ALGORITHM Q6 SC Last administered on 05/12/16at 12:05; Admin Dose 2 UNIT; Start 05/09/16 at 12:00 Aspirin 81 mg 81 mg DAILY GTB Last administered on 05/12/16 09:40; Admin Dose 81 MG; Start 05/10/16 at 09:00 Tigecycline/ Sodium Chloride (Tygacil/NS) 100 ml @ 200 mls/hr Q12 IVPB Last administered on 05/12/16 09:38; Admin Dose 200 MLS/HR; Start 05/10/16 at 06: 00 Miconazole Nitrate (Miconazole 2% Vag Cr) 1 applic HS VAG Last administered on 05/11/16at 21:50; Admin Dose 1 APPLIC; Start 05/09/16 at 21:00; Stop 05/12/16 at 21:00 Ascorbic Acid (Vitamin C) 500 mg DAILY GTB Last administered on 05/12/16 09: 40; Admin Dose 500 MG; Start 05/10/16 at 11:00 Citric Acid/ Sodium Citrate (Bicitra) 30 ml BID GTB Last administered on 09:41; Admin Dose 30 ML; Start 05/10/16 at 11:00 Clonidine (Catapres) 0.1 mg Q6 GTB Last administered on 12/21/16at 13:08; Admin Dose 0.1 MG; Start 05/10/16 at 12:00 Famotidine (Pepcid) 20 mg DAILY GTB Last administered on 05/12/16at 09:40; Admin Dose 20 MG; Start 05/10/16 at 11:00 Acetaminophen/ Hydrocodone Bitart ([place] (5/325)) 1 tab Q6H PRN GTB MODERATE PAIN LEVEL 4-6; Start 05/10/16 at 13:30 Magnesium Hydroxide (Milk Of Mag) 30 ml DAILY PRN GTB CONSTIPATION; Start at 10:00 Voriconazole (Vfend) 200 mg BID GTB Last administered on 05/12/16at 09:40; Admin Dose 200 MG; Start 05/10/16 at 11:00 Hydralazine HCl (Apresoline) 25 mg Q6 GTB Last administered on 05/12/16at 12:06 ; Admin Dose 25 MG; Start 05/10/16 at 12:00 Metoclopramide HCl (Reglan Liq) 10 mg Q6 GTB Last administered on 05/12/16at 12 :06; Admin Dose 10 MG; Start 05/10/16 at 18:00 AMY HANKINS MD May 12, 2016 14:23
[2016-05-12] MEDS ORDERED: D5W + KCL 20 MEQ 1,000 ML IV SCH (14:30)
[2016-05-12] MEDS ORDERED: POTASSIUM CHLORIDE 30 MEQ in DEXTROSE 5% 250 ML IVPB ONE (16:00)
--- NOTE | 2016-05-12 16:59 | CONS ---
Date/Time of Note Date/Time of Note DATE: 05/12/16 TIME: 16:58 Assessment/Plan Assessment/Plan Chief Complaint/Hosp Course IMPRESSION: 1. Patient has [id number] kidney disease. 2. Acute renal failure due to dehydration. 3. Underlying acute tubular necrosis due to sepsis. 4. Severe sepsis. 5. hypernatremia. 6. Free water deficit. 7. Hypokalemia. 8. Lactic acidosis. 9. Normal alkaline phosphatase. 10. Anemia. 11. History of tracheostomy. 12 METABOLIC ACIDOSIS PLAN KCL CK LABS d5 w WATER G TUBE CK BMP Problems: Consultation Date/Type/Reason Admit Date/Time May 04, 2016 at 05:51 Type of Consultation: renal Exam/Review of Systems Vital Signs Vitals Vital Signs Date Time Temp Pulse Resp B/P Pulse Ox O2 Delivery O2 Flow Rate FiO2 05/12/16 15:00 99 20 99 40 05/12/16 14:22 98.8 110/59 05/12/16 04:00 Mechanical Ventilator Intake and Output 05/11/16 05/11/16 05/12/16 15:00 23:00 07:00 Intake Total 1130 ml Output Total 850 ml Balance 280 ml Exam Respiratory: diminished breath sounds Cardiovascular: regular rate and rhythm Gastrointestinal: soft Genitourinary - Female: nl adnexae Results Result Diagram: 05/12/16 0654 05/12/16 0654 Results 24 hrs Laboratory Tests Test 05/11/16 17:35 05/11/16 21:47 05/12/16 06:37 05/12/16 06:54 Bedside Glucose 178 165 173 Anion Gap 15 Basophils # 0.0 Basophils % 0.3 Blood Morphology Comment Blood Urea Nitrogen 53 H Calcium Level 7.3 L Carbon Dioxide Level 18 L Chloride Level 120 H Creatinine 1.53 H Eosinophils # 0.4 Eosinophils % 3.3 Glucose Level 158 Hematocrit 26.7 L Hemoglobin 8.9 L Lymphocytes # 1.8 Lymphocytes % 15.2 Mean Corpuscular Hemoglobin 30.4 Mean Corpuscular Hemoglobin Concent 33.5 Mean Corpuscular Volume 90.9 Mean Platelet Volume 7.7 Monocytes # 0.4 Monocytes % 3.1 Neutrophils # 9.2 H Neutrophils % 78.1 H Nucleated Red Blood Cells # 0.0 Nucleated Red Blood Cells % 0.0 Platelet Count 308 Potassium Level 3.1 L Red Blood Count 2.93 L Red Cell Distribution Width 16.6 H Sodium Level 150 H White Blood Count 11.8 H Test 05/12/16 11:52 Bedside Glucose 172 Medications Medications Current Medications Morphine Sulfate (morphine) 2 mg Q4H PRN IV SEVERE PAIN LEVEL 7-10 Last administered on 05/07/16at 18:26; Admin Dose 2 MG; Start 05/04/16 at 07:30 Docusate Sodium (Colace) 100 mg Q12H PRN PO CONSTIPATION; Start 05/04/16 at 07 :30 Ondansetron HCl (Zofran Inj) 4 mg Q6H PRN IV NAUSEA AND/OR VOMITING Last administered on 05/05/16at 17:56; Admin Dose 4 MG; Start 05/04/16 at 07:30 Lorazepam (Ativan) 0.5 mg Q6H PRN IV ANXIETY Last administered on 05/06/16at 23 :58; Admin Dose 0.5 MG; Start 05/04/16 at 07:30 Hydralazine HCl (Apresoline) 10 mg Q6H PRN IV ELEVATED BLOOD PRESSURE; Start 05/04/16 at 07:30 Nitroglycerin (Nitroglycerin (Sl Tab) 0.4 Mg) 1 tab Q5M PRN SL ANGINA; Start 05/04/16 at 07:30 Acetaminophen (Tylenol Supp) 650 mg Q4 PRN [place] PAIN OR TEMP ABOVE 38C; Start at 07:30 Atorvastatin Calcium (Lipitor) 20 mg QHS GTB Last administered on 05/11/16at 21 :50; Admin Dose 20 MG; Start 05/04/16 at 21:00 Bisacodyl (Dulcolax Supp) 10 mg Q24H PRN [place] CONSTIPATION; Start 05/04/16 at 07 :30 Levetiracetam (Keppra Liquid) 1,000 mg Q12 GTB Last administered on 05/12/16at 09:41; Admin Dose 1,000 MG; Start 05/04/16 at 09:00 Senna (Senokot) 2 tab DAILY GTB Last administered on 05/12/16at 09:40; Admin Dose 2 TAB; Start 05/04/16 at 09:00 Multivitamins (Thera-Plus) 5 ml DAILY GTB Last administered on 05/12/16at 09:41 ; Admin Dose 5 ML; Start 05/04/16 at 09:00 Miscellaneous Information 1 ea NOTE XX ; Start 05/04/16 at 09:00 Glucose (Glutose) 15 gm Q15M PRN PO DECREASED GLUCOSE; Start 05/04/16 at 09:00 Glucose (Glutose) 22.5 gm Q15M PRN PO DECREASED GLUCOSE; Start 05/04/16 at 09: 00 Dextrose (D50w Syringe) 25 ml Q15M PRN IV DECREASED GLUCOSE; Start 05/04/16 at 09:00 Dextrose (D50w Syringe) 50 ml Q15M PRN IV DECREASED GLUCOSE; Start 05/04/16 at 09:00 Glucagon (Glucagen) 1 mg Q15M PRN IM DECREASED GLUCOSE; Start 05/04/16 at 09: 00 Glucose (Glutose) 15 gm Q15M PRN BUCCAL DECREASED GLUCOSE; Start 05/04/16 at 09:00 Acetaminophen (Tylenol Liquid) 650 mg Q6H PRN GTB PAIN LEVEL 1-3 OR FEVER Last administered on 05/11/16at 06:39; Admin Dose 650 MG; Start 05/04/16 at 18:30 Metronidazole (Flagyl) 500 mg Q8 GTB Last administered on 05/12/16at 14:23; Admin Dose 500 MG; Start 05/05/16 at 14:00 Collagenase (Santyl) APPLY TO NECROTIC TISSUE DAILY TOP Last administered on at 09:42; Admin Dose 1 APPLIC; Start 05/06/16 at 16:30 Collagenase (Santyl) APPLY TO NECROTIC AREA PRN PRN TOP SOILING; Start at 16:00 Insulin Glargine (Lantus) 10 unit QPM SC Last administered on 05/12/16at 00:06 ; Admin Dose 10 UNIT; Start 05/07/16 at 21:00 Insulin Aspart (Novolog Insulin Pen) NOVOLOG *MODERATE* ALGORITHM Q6 SC Last administered on 05/12/16at 12:05; Admin Dose 2 UNIT; Start 05/09/16 at 12:00 Aspirin 81 mg 81 mg DAILY GTB Last administered on 05/12/16at 09:40; Admin Dose 81 MG; Start 05/10/16 at 09:00 Tigecycline/ Sodium Chloride (Tygacil/NS) 100 ml @ 200 mls/hr Q12 IVPB Last administered on 05/12/16 09:38; Admin Dose 200 MLS/HR; Start 05/10/16 at 06: 00 Miconazole Nitrate (Miconazole 2% Vag Cr) 1 applic HS VAG Last administered on 05/11/16 21:50; Admin Dose 1 APPLIC; Start 05/09/16 at 21:00; Stop 05/12/16 at 21:00 Ascorbic Acid (Vitamin C) 500 mg DAILY GTB Last administered on 05/12/16 09: 40; Admin Dose 500 MG; Start 05/10/16 at 11:00 Citric Acid/ Sodium Citrate (Bicitra) 30 ml BID GTB Last administered on 09:41; Admin Dose 30 ML; Start 05/10/16 at 11:00 Clonidine (Catapres) 0.1 mg Q6 GTB Last administered on 05/12/16 13:08; Admin Dose 0.1 MG; Start 05/10/16 at 12:00 Famotidine (Pepcid) 20 mg DAILY GTB Last administered on 05/12/16 09:40; Admin Dose 20 MG; Start 05/10/16 at 11:00 Acetaminophen/ Hydrocodone Bitart ([place] (5/325)) 1 tab Q6H PRN GTB MODERATE PAIN LEVEL 4-6; Start 05/10/16 at 13:30 Magnesium Hydroxide (Milk Of Mag) 30 ml DAILY PRN GTB CONSTIPATION; Start at 10:00 Voriconazole (Vfend) 200 mg BID GTB Last administered on 05/12/16 09:40; Admin Dose 200 MG; Start 05/10/16 at 11:00 Hydralazine HCl (Apresoline) 25 mg Q6 GTB Last administered on 05/12/16 12:06 ; Admin Dose 25 MG; Start 05/10/16 at 12:00 Metoclopramide HCl 10 mg 10 mg Q6 GTB Last administered on 05/12/16 12:06; Admin Dose 10 MG; Start 05/10/16 at 18:00 Potassium Chloride/Dextrose 1,000 ml @ 60 mls/hr [id number] IV Last administered on 05/12/16 16:54; Admin Dose 60 MLS/HR; Start 05/12/16 at 14:30; Stop 05/13 at 07:09 Potassium Chloride/Dextrose (KCl/D5W) 265 ml @ 88.333 mls/ hr ONCE ONCE IVPB Last administered on 05/12/16at 16:54; Admin Dose 88.333 MLS/HR; Start at 16:00; Stop 05/12/16 at 18:59 AMBER LIEBERMAN MD May 12, 2016 16:59
[2016-05-12] MEDS: ATORVASTATIN 20 MG TAB GTB SCH (21:57)
[2016-05-12] MEDS: MICONAZOLE 2% 45 GM VAG CR VAG SCH (21:58)
[2016-05-13] VITALS (26 sets, daily range): BP systolic 103–128; BP diastolic 63–73; PULSE 75–100; RESP 14–27
[2016-05-13] MEDS: METOCLOPRAMIDE (1 MG/ML) 10 ML CUP GTB SCH ×4 (01:50→17:32)
[2016-05-13] MEDS: INSULIN ASPART [NOVOLOG] 3 ML PEN SC SCH ×4 (01:53→17:45)
[2016-05-13] MEDS: metroNIDAZOLE 500 MG TAB GTB SCH ×3 (06:36→21:52)
[2016-05-13 07:44] LABS: BASOPHIL # 0.1 10^3/ul (0.0-0.1); BASOPHILS % 0.4 % (0.0-2.0); EOSINOPHILS # 0.5 10^3/ul (0.0-0.5); HEMATOCRIT 26.2 % (37.0-47.0); HEMOGLOBIN 8.8 g/dl (12.0-16.0); LYMPHOCYTES % 16.5 % (15.0-51.0); MEAN CORPUSCULAR HEMOGLOBIN 30.5 pg (29.0-33.0); MEAN CORPUSCULAR HGB CONC 33.8 g/dl (32.0-37.0); MEAN CORPUSCULAR VOLUME 90.3 fl (82.0-101.0); MEAN PLATELET VOLUME 7.9 fl (7.4-10.4); MONOCYTE # 0.3 10^3/ul (0.3-0.9); MONOCYTES % 2.8 % (0.0-11.0); NEUTROPHIL # 9.1 10^3/ul (1.6-7.5); NEUTROPHILS % 76.3 % (39.0-77.0); PLATELET COUNT 295 10^3/UL (140-440); RED CELL DISTRIBUTION WIDTH 16.5 % (11.5-14.5); UNCORRECTED WBC 11.9 10^3/ul (4.8-10.8); WHITE BLOOD COUNT 11.9 10^3/ul (4.8-10.8)
[2016-05-13 08:02] LABS: CONDITION 1; LH ANALYZER COMMENTS 1
[2016-05-13 08:17] LABS: POTASSIUM 3.4 mmol/L (3.5-5.1)
[2016-05-13 08:19] LABS: CREATININE 1.38 mg/dl (0.44-1.00)
[2016-05-13 08:20] LABS: CALCIUM 7.1 mg/dl (8.4-10.2)
[2016-05-13] MEDS: SENNA TAB GTB SCH (09:00)
[2016-05-13] MEDS: MULTIVITAMINS 5 ML CUP GTB SCH (09:31)
[2016-05-13] MEDS: LEVETIRACETAM (100 MG/ML) 5ML CUP GTB SCH ×2 (09:31→21:52)
[2016-05-13] MEDS: ASCORBIC ACID 500 MG TAB GTB SCH (09:31)
[2016-05-13] MEDS: TIGECYCLINE 50 MG in SOD CHLORIDE 0.9% 100 ML IVPB SCH ×2 (09:31→21:51)
[2016-05-13] MEDS: CITRIC ACID/NA CITRATE 30 ML CUP GTB SCH ×2 (09:31→21:52)
[2016-05-13] MEDS: FAMOTIDINE 20 MG TAB GTB SCH (09:32)
[2016-05-13] MEDS: VORICONAZOLE 200 MG TAB GTB SCH ×2 (09:32→21:52)
[2016-05-13] MEDS: ASPIRIN 81 MG TAB GTB SCH (09:32)
[2016-05-13] MEDS: COLLAGENASE 30 GM TUBE TOP SCH (09:39)
--- NOTE | 2016-05-13 15:39 | PN ---
Date/Time of Note Date/Time of Note DATE: 05/13/16 TIME: 15:37 Assessment/Plan VTE Prophylaxis VTE Prophylaxis Intervention: SCD's Lines/Catheters IV Catheter Type (from Nrsg): Peripheral IV Urinary Cath still in place: Yes Reason Cath still needed: other (indicate) Assessment/Plan Chief Complaint/Hosp Course ASSESSMENT AND PLAN: 1. Sepsis, likely secondary to urinary tract infection versus sacral decubitus. The patient has been started on Tygacil , flagyl, and V.fend as per ID recommendations . Follow up infectious disease recommendations. We'll continue monitor patient blood pressure, off pressors at this time 2. Acute on chronic respiratory failure, Ventilator-dependent respiratory failure, status post trach. Pulmonology has been consulted. 3. Acute renal insufficiency, improving status post IVF, likely secondary to sepsis versus dehydration. nephrology consulted. Continue IV fluids. 4. Diabetes mellitus. Continue sliding scale and Lantus. 5. History of cerebrovascular accident. No acute issues at this time. Patient is bed bound and a phasic 6. Dyslipidemia. Continue Lipitor. 7. Electrolyte imbalance , nephrology following 8. Essential Hypertension, continue to monitor restart blood pressure medications cautiously 9. C. difficile toxin, continue Flagyl 10. Hypokalemia, repleted 11. Hypernatremia, continue DW also start free water with PEG tube feeding every 8 hours, follow up electrolytes in a.m. We will continue monitor patient closely for recommendation management treatment as per clinical course Condition guarded Continue to monitor in telemetry floor Plan to discharge to [facility] facility when bed is available Discharge/transfer antibiotics as per infectious disease, follow-up with infectious disease physician regarding isolation status Problems: Subjective 24 Hr Interval Summary Free Text/Dictation No acute changes Awaiting for [facility] facility placement Exam/Review of Systems Vital Signs Vitals Vital Signs Date Time Temp Pulse Resp B/P Pulse Ox O2 Delivery O2 Flow Rate FiO2 05/13/16 15:20 85 15 100 40 05/13/16 12:00 103/63 Mechanical Ventilator 05/13/16 10:58 98.7 Intake and Output 05/12/16 05/12/16 05/13/16 15:00 23:00 07:00 Intake Total 200 ml 475 ml 1320 ml Output Total 350 ml 1400 ml Balance 200 ml 125 ml -80 ml Exam General: The patient is a phasic, on vent via trach, does not respond to any pain or verbal stimuli HEENT: Atraumatic, normocephalic. The pupils are equal Neck: Supple , trach in place Chest: Normal Lungs: Decreased breath sounds bilateral lower lung field, positive crackles Heart: Normal S1-S2, Regular rhythm and rate. Abdomen: Soft , nontender, nondistended , bowel sounds are present. PEG tube in place Extremities: Flaccid, + 2 edema no cyanosis Neurologic: No meaningful neurologic examination findings Skin: Stage IV sacral decubitus Results Result Diagram: 05/13/16 0612 05/13/16 0612 Results 24 hrs Laboratory Tests Test 05/12/16 17:44 05/12/16 21:55 05/13/16 06:12 05/13/16 06:36 Bedside Glucose 158 199 204 Anion Gap 15 Basophils # 0.1 Basophils % 0.4 Blood Morphology Comment Blood Urea Nitrogen 48 H Calcium Level 7.1 L Carbon Dioxide Level 18 L Chloride Level 120 H Creatinine 1.38 H Eosinophils # 0.5 Eosinophils % 4.0 Glucose Level 168 Hematocrit 26.2 L Hemoglobin 8.8 L Lymphocytes # 2.0 Lymphocytes % 16.5 Mean Corpuscular Hemoglobin 30.5 Mean Corpuscular Hemoglobin Concent 33.8 Mean Corpuscular Volume 90.3 Mean Platelet Volume 7.9 Monocytes # 0.3 Monocytes % 2.8 Neutrophils # 9.1 H Neutrophils % 76.3 Nucleated Red Blood Cells # 0.0 Nucleated Red Blood Cells % 0.0 Platelet Count 295 Potassium Level 3.4 L Red Blood Count 2.90 L Red Cell Distribution Width 16.5 H Sodium Level 150 H White Blood Count 11.9 H Test 05/13/16 12:04 Bedside Glucose 160 Medications Medications Current Medications Morphine Sulfate (morphine) 2 mg Q4H PRN IV SEVERE PAIN LEVEL 7-10 Last administered on 05/07/16at 18:26; Admin Dose 2 MG; Start 05/04/16 at 07:30 Docusate Sodium (Colace) 100 mg Q12H PRN PO CONSTIPATION; Start 05/04/16 at 07 :30 Ondansetron HCl (Zofran Inj) 4 mg Q6H PRN IV NAUSEA AND/OR VOMITING Last administered on 05/05/16at 17:56; Admin Dose 4 MG; Start 05/04/16 at 07:30 Lorazepam (Ativan) 0.5 mg Q6H PRN IV ANXIETY Last administered on 05/06/16at 23 :58; Admin Dose 0.5 MG; Start 05/04/16 at 07:30 Hydralazine HCl (Apresoline) 10 mg Q6H PRN IV ELEVATED BLOOD PRESSURE; Start 05/04/16 at 07:30 Nitroglycerin (Nitroglycerin (Sl Tab) 0.4 Mg) 1 tab Q5M PRN SL ANGINA; Start 05/04/16 at 07:30 Acetaminophen (Tylenol Supp) 650 mg Q4 PRN [place] PAIN OR TEMP ABOVE 38C; Start at 07:30 Atorvastatin Calcium (Lipitor) 20 mg QHS GTB Last administered on 05/12/16at 21 :57; Admin Dose 20 MG; Start 05/04/16 at 21:00 Bisacodyl (Dulcolax Supp) 10 mg Q24H PRN [place] CONSTIPATION; Start 05/04/16 at 07 :30 Levetiracetam (Keppra Liquid) 1,000 mg Q12 GTB Last administered on 05/13/16at 09:31; Admin Dose 1,000 MG; Start 05/04/16 at 09:00 Senna (Senokot) 2 tab DAILY GTB Last administered on 05/12/16at 09:40; Admin Dose 2 TAB; Start 05/04/16 at 09:00 Multivitamins (Thera-Plus) 5 ml DAILY GTB Last administered on 05/13/16at 09:31 ; Admin Dose 5 ML; Start 05/04/16 at 09:00 Miscellaneous Information 1 ea NOTE XX ; Start 05/04/16 at 09:00 Glucose (Glutose) 15 gm Q15M PRN PO DECREASED GLUCOSE; Start 05/04/16 at 09:00 Glucose (Glutose) 22.5 gm Q15M PRN PO DECREASED GLUCOSE; Start 05/04/16 at 09: 00 Dextrose (D50w Syringe) 25 ml Q15M PRN IV DECREASED GLUCOSE; Start 05/04/16 at 09:00 Dextrose (D50w Syringe) 50 ml Q15M PRN IV DECREASED GLUCOSE; Start 05/04/16 at 09:00 Glucagon (Glucagen) 1 mg Q15M PRN IM DECREASED GLUCOSE; Start 05/04/16 at 09: 00 Glucose (Glutose) 15 gm Q15M PRN BUCCAL DECREASED GLUCOSE; Start 05/04/16 at 09:00 Acetaminophen (Tylenol Liquid) 650 mg Q6H PRN GTB PAIN LEVEL 1-3 OR FEVER Last administered on 05/11/16 06:39; Admin Dose 650 MG; Start 05/04/16 at 18:30 Metronidazole (Flagyl) 500 mg Q8 GTB Last administered on 05/13/16 13:57; Admin Dose 500 MG; Start 05/05/16 at 14:00 Collagenase (Santyl) APPLY TO NECROTIC TISSUE DAILY TOP Last administered on 09:39; Admin Dose 1 APPLIC; Start 05/06/16 at 16:30 Collagenase (Santyl) APPLY TO NECROTIC AREA PRN PRN TOP SOILING; Start at 16:00 Insulin Glargine (Lantus) 10 unit QPM SC Last administered on 05/12/16at 22:04 ; Admin Dose 10 UNIT; Start 05/07/16 at 21:00 Insulin Aspart (Novolog Insulin Pen) NOVOLOG *MODERATE* ALGORITHM Q6 SC Last administered on 05/13/16 12:58; Admin Dose 2 UNIT; Start 05/09/16 at 12:00 Aspirin 81 mg 81 mg DAILY GTB Last administered on 05/13/16 09:32; Admin Dose 81 MG; Start 05/10/16 at 09:00 Tigecycline/ Sodium Chloride (Tygacil/NS) 100 ml @ 200 mls/hr Q12 IVPB Last administered on 05/13/16 09:31; Admin Dose 200 MLS/HR; Start 05/10/16 at 06: 00 Ascorbic Acid (Vitamin C) 500 mg DAILY GTB Last administered on 05/13/16 09: 31; Admin Dose 500 MG; Start 05/10/16 at 11:00 Citric Acid/ Sodium Citrate (Bicitra) 30 ml BID GTB Last administered on 09:31; Admin Dose 30 ML; Start 05/10/16 at 11:00 Clonidine (Catapres) 0.1 mg Q6 GTB Last administered on 05/13/16 06:37; Admin Dose 0.1 MG; Start 05/10/16 at 12:00 Famotidine (Pepcid) 20 mg DAILY GTB Last administered on 05/13/16 09:32; Admin Dose 20 MG; Start 05/10/16 at 11:00 Acetaminophen/ Hydrocodone Bitart ([place] (5/325)) 1 tab Q6H PRN GTB MODERATE PAIN LEVEL 4-6; Start 05/10/16 at 13:30 Magnesium Hydroxide (Milk Of Mag) 30 ml DAILY PRN GTB CONSTIPATION; Start at 10:00 Voriconazole (Vfend) 200 mg BID GTB Last administered on 05/13/16at 09:32; Admin Dose 200 MG; Start 05/10/16 at 11:00 Hydralazine HCl (Apresoline) 25 mg Q6 GTB Last administered on 05/13/16 06:37 ; Admin Dose 25 MG; Start 05/10/16 at 12:00 Metoclopramide HCl (Reglan Liq) 10 mg Q6 GTB Last administered on 05/13/16 12 :51; Admin Dose 10 MG; Start 05/10/16 at 18:00 AMY HANKINS MD May 13, 2016 15:39
--- NOTE | 2016-05-13 15:49 | CONS ---
Date/Time of Note Date/Time of Note DATE: 05/13/16 TIME: 15:49 Assessment/Plan Assessment/Plan Chief Complaint/Hosp Course IMPRESSION: 1. Patient has [id number] kidney disease. 2. Acute renal failure due to dehydration. 3. Underlying acute tubular necrosis due to sepsis. 4. Severe sepsis. 5. hypernatremia. 6. Free water deficit. 7. Hypokalemia. 8. Lactic acidosis. 9. Normal alkaline phosphatase. 10. Anemia. 11. History of tracheostomy. 12 METABOLIC ACIDOSIS PLAN KCL CK LABS d5 w WATER G TUBE CK BMP Problems: Consultation Date/Type/Reason Admit Date/Time May 04, 2016 at 05:51 Type of Consultation: renal Exam/Review of Systems Vital Signs Vitals Vital Signs Date Time Temp Pulse Resp B/P Pulse Ox O2 Delivery O2 Flow Rate FiO2 05/13/16 15:45 98.8 91 20 108/65 100 05/13/16 15:20 40 05/13/16 12:00 Mechanical Ventilator Intake and Output 05/12/16 05/12/16 05/13/16 15:00 23:00 07:00 Intake Total 200 ml 475 ml 1320 ml Output Total 350 ml 1400 ml Balance 200 ml 125 ml -80 ml Exam Neck: supple Respiratory: clear to auscultation Cardiovascular: regular rate and rhythm Gastrointestinal: soft Musculoskeletal: nl extremities to inspection Results Result Diagram: 05/13/16 0612 05/13/16 0612 Results 24 hrs Laboratory Tests Test 05/12/16 17:44 05/12/16 21:55 05/13/16 06:12 05/13/16 06:36 Bedside Glucose 158 199 204 Anion Gap 15 Basophils # 0.1 Basophils % 0.4 Blood Morphology Comment Blood Urea Nitrogen 48 H Calcium Level 7.1 L Carbon Dioxide Level 18 L Chloride Level 120 H Creatinine 1.38 H Eosinophils # 0.5 Eosinophils % 4.0 Glucose Level 168 Hematocrit 26.2 L Hemoglobin 8.8 L Lymphocytes # 2.0 Lymphocytes % 16.5 Mean Corpuscular Hemoglobin 30.5 Mean Corpuscular Hemoglobin Concent 33.8 Mean Corpuscular Volume 90.3 Mean Platelet Volume 7.9 Monocytes # 0.3 Monocytes % 2.8 Neutrophils # 9.1 H Neutrophils % 76.3 Nucleated Red Blood Cells # 0.0 Nucleated Red Blood Cells % 0.0 Platelet Count 295 Potassium Level 3.4 L Red Blood Count 2.90 L Red Cell Distribution Width 16.5 H Sodium Level 150 H White Blood Count 11.9 H Test 05/13/16 12:04 Bedside Glucose 160 Medications Medications Current Medications Morphine Sulfate (morphine) 2 mg Q4H PRN IV SEVERE PAIN LEVEL 7-10 Last administered on 05/07/16 18:26; Admin Dose 2 MG; Start 05/04/16 at 07:30 Docusate Sodium (Colace) 100 mg Q12H PRN PO CONSTIPATION; Start 05/04/16 at 07 :30 Ondansetron HCl (Zofran Inj) 4 mg Q6H PRN IV NAUSEA AND/OR VOMITING Last administered on 05/05/16at 17:56; Admin Dose 4 MG; Start 05/04/16 at 07:30 Lorazepam (Ativan) 0.5 mg Q6H PRN IV ANXIETY Last administered on 05/06/16at 23 :58; Admin Dose 0.5 MG; Start 05/04/16 at 07:30 Hydralazine HCl (Apresoline) 10 mg Q6H PRN IV ELEVATED BLOOD PRESSURE; Start 05/04/16 at 07:30 Nitroglycerin (Nitroglycerin (Sl Tab) 0.4 Mg) 1 tab Q5M PRN SL ANGINA; Start 05/04/16 at 07:30 Acetaminophen (Tylenol Supp) 650 mg Q4 PRN [place] PAIN OR TEMP ABOVE 38C; Start at 07:30 Atorvastatin Calcium (Lipitor) 20 mg QHS GTB Last administered on 05/12/16at 21 :57; Admin Dose 20 MG; Start 05/04/16 at 21:00 Bisacodyl (Dulcolax Supp) 10 mg Q24H PRN [place] CONSTIPATION; Start 05/04/16 at 07 :30 Levetiracetam (Keppra Liquid) 1,000 mg Q12 GTB Last administered on 05/13/16at 09:31; Admin Dose 1,000 MG; Start 05/04/16 at 09:00 Senna (Senokot) 2 tab DAILY GTB Last administered on 05/12/16at 09:40; Admin Dose 2 TAB; Start 05/04/16 at 09:00 Multivitamins (Thera-Plus) 5 ml DAILY GTB Last administered on 05/13/16at 09:31 ; Admin Dose 5 ML; Start 05/04/16 at 09:00 Miscellaneous Information 1 ea NOTE XX ; Start 05/04/16 at 09:00 Glucose (Glutose) 15 gm Q15M PRN PO DECREASED GLUCOSE; Start 05/04/16 at 09:00 Glucose (Glutose) 22.5 gm Q15M PRN PO DECREASED GLUCOSE; Start 05/04/16 at 09: 00 Dextrose (D50w Syringe) 25 ml Q15M PRN IV DECREASED GLUCOSE; Start 05/04/16 at 09:00 Dextrose (D50w Syringe) 50 ml Q15M PRN IV DECREASED GLUCOSE; Start 05/04/16 at 09:00 Glucagon (Glucagen) 1 mg Q15M PRN IM DECREASED GLUCOSE; Start 05/04/16 at 09: 00 Glucose (Glutose) 15 gm Q15M PRN BUCCAL DECREASED GLUCOSE; Start 05/04/16 at 09:00 Acetaminophen (Tylenol Liquid) 650 mg Q6H PRN GTB PAIN LEVEL 1-3 OR FEVER Last administered on 05/11/16at 06:39; Admin Dose 650 MG; Start 05/04/16 at 18:30 Metronidazole (Flagyl) 500 mg Q8 GTB Last administered on 05/13/16at 13:57; Admin Dose 500 MG; Start 05/05/16 at 14:00 Collagenase (Santyl) APPLY TO NECROTIC TISSUE DAILY TOP Last administered on at 09:39; Admin Dose 1 APPLIC; Start 05/06/16 at 16:30 Collagenase (Santyl) APPLY TO NECROTIC AREA PRN PRN TOP SOILING; Start at 16:00 Insulin Glargine (Lantus) 10 unit QPM SC Last administered on 05/12/16at 22:04 ; Admin Dose 10 UNIT; Start 05/07/16 at 21:00 Insulin Aspart (Novolog Insulin Pen) NOVOLOG *MODERATE* ALGORITHM Q6 SC Last administered on 05/13/16at 12:58; Admin Dose 2 UNIT; Start 05/09/16 at 12:00 Aspirin 81 mg 81 mg DAILY GTB Last administered on 05/13/16at 09:32; Admin Dose 81 MG; Start 05/10/16 at 09:00 Tigecycline/ Sodium Chloride (Tygacil/NS) 100 ml @ 200 mls/hr Q12 IVPB Last administered on 05/13/16 09:31; Admin Dose 200 MLS/HR; Start 05/10/16 at 06: 00 Ascorbic Acid (Vitamin C) 500 mg DAILY GTB Last administered on 05/13/16 09: 31; Admin Dose 500 MG; Start 05/10/16 at 11:00 Citric Acid/ Sodium Citrate (Bicitra) 30 ml BID GTB Last administered on 09:31; Admin Dose 30 ML; Start 05/10/16 at 11:00 Clonidine (Catapres) 0.1 mg Q6 GTB Last administered on 05/13/16 06:37; Admin Dose 0.1 MG; Start 05/10/16 at 12:00 Famotidine (Pepcid) 20 mg DAILY GTB Last administered on 05/13/16 09:32; Admin Dose 20 MG; Start 05/10/16 at 11:00 Acetaminophen/ Hydrocodone Bitart ([place] (5/325)) 1 tab Q6H PRN GTB MODERATE PAIN LEVEL 4-6; Start 05/10/16 at 13:30 Magnesium Hydroxide (Milk Of Mag) 30 ml DAILY PRN GTB CONSTIPATION; Start at 10:00 Voriconazole (Vfend) 200 mg BID GTB Last administered on 05/13/16 09:32; Admin Dose 200 MG; Start 05/10/16 at 11:00 Hydralazine HCl (Apresoline) 25 mg Q6 GTB Last administered on 05/13/16 06:37 ; Admin Dose 25 MG; Start 05/10/16 at 12:00 Metoclopramide HCl (Reglan Liq) 10 mg Q6 GTB Last administered on 05/13/16 12 :51; Admin Dose 10 MG; Start 05/10/16 at 18:00 AMBER LIEBERMAN MD May 13, 2016 15:49
[2016-05-13] MEDS: POTASSIUM CHLORIDE 30 MEQ in DEXTROSE 5% 1,000 ML IV SCH (17:08)
--- NOTE | 2016-05-13 18:42 | CONS ---
Date/Time of Note Date/Time of Note DATE: 05/13/16 TIME: 18:41 Consult Date/Type/Reason Admit Date/Time May 04, 2016 at 05:51 Type of Consultation: ID Subjective no acute changes, afebrile, nad, still with loose stools==> Senn[place]ot dc'd Objective Vital Signs Date Time Temp Pulse Resp B/P Pulse Ox O2 Delivery O2 Flow Rate FiO2 05/13/16 17:19 83 16 100 40 05/13/16 15:45 98.8 108/65 05/13/16 12:00 Mechanical Ventilator Intake and Output 05/12/16 05/12/16 05/13/16 15:00 23:00 07:00 Intake Total 200 ml 475 ml 1320 ml Output Total 350 ml 1400 ml Balance 200 ml 125 ml -80 ml Results/Medications Result Diagram: 05/13/16 0612 05/13/16 0612 Results 24 hrs Laboratory Tests Test 05/12/16 21:55 05/13/16 06:12 05/13/16 06:36 05/13/16 12:04 Bedside Glucose 199 204 160 Anion Gap 15 Basophils # 0.1 Basophils % 0.4 Blood Morphology Comment Blood Urea Nitrogen 48 H Calcium Level 7.1 L Carbon Dioxide Level 18 L Chloride Level 120 H Creatinine 1.38 H Eosinophils # 0.5 Eosinophils % 4.0 Glucose Level 168 Hematocrit 26.2 L Hemoglobin 8.8 L Lymphocytes # 2.0 Lymphocytes % 16.5 Mean Corpuscular Hemoglobin 30.5 Mean Corpuscular Hemoglobin Concent 33.8 Mean Corpuscular Volume 90.3 Mean Platelet Volume 7.9 Monocytes # 0.3 Monocytes % 2.8 Neutrophils # 9.1 H Neutrophils % 76.3 Nucleated Red Blood Cells # 0.0 Nucleated Red Blood Cells % 0.0 Platelet Count 295 Potassium Level 3.4 L Red Blood Count 2.90 L Red Cell Distribution Width 16.5 H Sodium Level 150 H White Blood Count 11.9 H Test 05/13/16 17:05 Bedside Glucose 159 Medications Current Medications Morphine Sulfate (morphine) 2 mg Q4H PRN IV SEVERE PAIN LEVEL 7-10 Last administered on 05/07/16at 18:26; Admin Dose 2 MG; Start 05/04/16 at 07:30 Docusate Sodium (Colace) 100 mg Q12H PRN PO CONSTIPATION; Start 05/04/16 at 07 :30 Ondansetron HCl (Zofran Inj) 4 mg Q6H PRN IV NAUSEA AND/OR VOMITING Last administered on 05/05/16at 17:56; Admin Dose 4 MG; Start 05/04/16 at 07:30 Lorazepam (Ativan) 0.5 mg Q6H PRN IV ANXIETY Last administered on 05/06/16at 23 :58; Admin Dose 0.5 MG; Start 05/04/16 at 07:30 Hydralazine HCl (Apresoline) 10 mg Q6H PRN IV ELEVATED BLOOD PRESSURE; Start 05/04/16 at 07:30 Nitroglycerin (Nitroglycerin (Sl Tab) 0.4 Mg) 1 tab Q5M PRN SL ANGINA; Start 05/04/16 at 07:30 Acetaminophen (Tylenol Supp) 650 mg Q4 PRN [place] PAIN OR TEMP ABOVE 38C; Start at 07:30 Atorvastatin Calcium (Lipitor) 20 mg QHS GTB Last administered on 05/12/16at 21 :57; Admin Dose 20 MG; Start 05/04/16 at 21:00 Bisacodyl (Dulcolax Supp) 10 mg Q24H PRN [place] CONSTIPATION; Start 05/04/16 at 07 :30 Levetiracetam (Keppra Liquid) 1,000 mg Q12 GTB Last administered on 05/13/16at 09:31; Admin Dose 1,000 MG; Start 05/04/16 at 09:00 Multivitamins (Thera-Plus) 5 ml DAILY GTB Last administered on 05/13/16at 09:31 ; Admin Dose 5 ML; Start 05/04/16 at 09:00 Miscellaneous Information 1 ea NOTE XX ; Start 05/04/16 at 09:00 Glucose (Glutose) 15 gm Q15M PRN PO DECREASED GLUCOSE; Start 05/04/16 at 09:00 Glucose (Glutose) 22.5 gm Q15M PRN PO DECREASED GLUCOSE; Start 05/04/16 at 09: 00 Dextrose (D50w Syringe) 25 ml Q15M PRN IV DECREASED GLUCOSE; Start 05/04/16 at 09:00 Dextrose (D50w Syringe) 50 ml Q15M PRN IV DECREASED GLUCOSE; Start 05/04/16 at 09:00 Glucagon (Glucagen) 1 mg Q15M PRN IM DECREASED GLUCOSE; Start 05/04/16 at 09: 00 Glucose (Glutose) 15 gm Q15M PRN BUCCAL DECREASED GLUCOSE; Start 05/04/16 at 09:00 Acetaminophen (Tylenol Liquid) 650 mg Q6H PRN GTB PAIN LEVEL 1-3 OR FEVER Last administered on 05/11/16 06:39; Admin Dose 650 MG; Start 05/04/16 at 18:30 Metronidazole (Flagyl) 500 mg Q8 GTB Last administered on 05/13/16 13:57; Admin Dose 500 MG; Start 05/05/16 at 14:00 Collagenase (Santyl) APPLY TO NECROTIC TISSUE DAILY TOP Last administered on 09:39; Admin Dose 1 APPLIC; Start 05/06/16 at 16:30 Collagenase (Santyl) APPLY TO NECROTIC AREA PRN PRN TOP SOILING; Start at 16:00 Insulin Glargine (Lantus) 10 unit QPM SC Last administered on 05/12/16at 22:04 ; Admin Dose 10 UNIT; Start 05/07/16 at 21:00 Insulin Aspart (Novolog Insulin Pen) NOVOLOG *MODERATE* ALGORITHM Q6 SC Last administered on 05/13/16 17:45; Admin Dose 2 UNIT; Start 05/09/16 at 12:00 Aspirin 81 mg 81 mg DAILY GTB Last administered on 05/13/16 09:32; Admin Dose 81 MG; Start 05/10/16 at 09:00 Tigecycline/ Sodium Chloride (Tygacil/NS) 100 ml @ 200 mls/hr Q12 IVPB Last administered on 05/13/16 09:31; Admin Dose 200 MLS/HR; Start 05/10/16 at 06: 00 Ascorbic Acid (Vitamin C) 500 mg DAILY GTB Last administered on 05/13/16 09: 31; Admin Dose 500 MG; Start 05/10/16 at 11:00 Citric Acid/ Sodium Citrate (Bicitra) 30 ml BID GTB Last administered on 09:31; Admin Dose 30 ML; Start 05/10/16 at 11:00 Clonidine (Catapres) 0.1 mg Q6 GTB Last administered on 05/13/16 06:37; Admin Dose 0.1 MG; Start 05/10/16 at 12:00 Famotidine (Pepcid) 20 mg DAILY GTB Last administered on 05/13/16at 09:32; Admin Dose 20 MG; Start 05/10/16 at 11:00 Acetaminophen/ Hydrocodone Bitart ([place] (5/325)) 1 tab Q6H PRN GTB MODERATE PAIN LEVEL 4-6; Start 05/10/16 at 13:30 Magnesium Hydroxide (Milk Of Mag) 30 ml DAILY PRN GTB CONSTIPATION; Start at 10:00 Voriconazole (Vfend) 200 mg BID GTB Last administered on 05/13/16at 09:32; Admin Dose 200 MG; Start 05/10/16 at 11:00 Hydralazine HCl (Apresoline) 25 mg Q6 GTB Last administered on 05/13/16at 06:37 ; Admin Dose 25 MG; Start 05/10/16 at 12:00 Metoclopramide HCl 10 mg 10 mg Q6 GTB Last administered on 05/13/16at 17:32; Admin Dose 10 MG; Start 05/10/16 at 18:00 Potassium Chloride/Dextrose (KCl/D5W) 1,015 ml @ 100 mls/hr Q10H9M IV Last administered on 05/13/16at 17:08; Admin Dose 100 MLS/HR; Start 05/13/16 at 17: 30 Assessment/Plan Chief Complaint/Hosp Course INDWELLINGS: Trach, PEG, Reynolds, [employer] shunt. ANTIMICROBIALS: Tygacil, Flagyl, Voriconazole. PHYSICAL EXAMINATION: GENERAL: This is a chronically ill-appearing, middle-aged woman who is obtunded in no distress. HEENT: Head atraumatic, normocephalic. Sclerae anicteric. Buccal mucosa dry. NECK: Supple. Tracheostomy present. CHEST: Rise symmetrical. Breath sounds diminished at the bases. HEART: S1, S2. ABDOMEN: Soft, bowel tones present. EXTREMITIES: Without cyanosis. ASSESSMENT: 1. S/p sepsis with shock. 2. Clostridium difficile colitis. 3. Unstageable sacral decubitus, possible osteomyelitis with a history of multiple debridements. 4. 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 5. Seizure disorder. 6. Chronic encephalopathy. 7. Urinary tract infection with culture grew Deyanira glabrata. PLAN: Clinically unchanged, continue abx, local wound care, repeat stool for C dif DW staff Problems: DUTCH STEELE NP May 13, 2016 18:42
[2016-05-13] MEDS: ATORVASTATIN 20 MG TAB GTB SCH (21:52)
[2016-05-13] MEDS: INSULIN GLARGINE [LANtus] 3 ML PEN SC SCH (22:38)
[2016-05-14] VITALS (25 sets, daily range): BP systolic 107–131; BP diastolic 56–70; PULSE 75–89; RESP 14–24
[2016-05-14] MEDS: METOCLOPRAMIDE (1 MG/ML) 10 ML CUP GTB SCH ×4 (00:52→17:40)
[2016-05-14] MEDS: INSULIN ASPART [NOVOLOG] 3 ML PEN SC SCH ×4 (01:35→17:49)
[2016-05-14] MEDS: POTASSIUM CHLORIDE 30 MEQ in DEXTROSE 5% 1,000 ML IV SCH ×3 (05:08→17:40)
[2016-05-14] MEDS: metroNIDAZOLE 500 MG TAB GTB SCH ×3 (05:08→22:09)
[2016-05-14 07:35] LABS: BASOPHILS % 0.1 % (0.0-2.0); EOSINOPHILS # 0.4 10^3/ul (0.0-0.5); EOSINOPHILS % 3.6 % (0.0-7.0); HEMATOCRIT 25.9 % (37.0-47.0); HEMOGLOBIN 8.6 g/dl (12.0-16.0); LYMPHOCYTES # 2.3 10^3/ul (0.8-2.9); LYMPHOCYTES % 18.8 % (15.0-51.0); MEAN CORPUSCULAR HEMOGLOBIN 30.2 pg (29.0-33.0); MEAN CORPUSCULAR HGB CONC 33.1 g/dl (32.0-37.0); MEAN CORPUSCULAR VOLUME 91.1 fl (82.0-101.0); MEAN PLATELET VOLUME 7.6 fl (7.4-10.4); MONOCYTE # 0.6 10^3/ul (0.3-0.9); MONOCYTES % 4.6 % (0.0-11.0); NEUTROPHIL # 8.8 10^3/ul (1.6-7.5); NEUTROPHILS % 72.9 % (39.0-77.0); PLATELET COUNT 311 10^3/UL (140-440); RED BLOOD COUNT 2.84 10^6/ul (4.20-5.40); RED CELL DISTRIBUTION WIDTH 15.8 % (11.5-14.5)
[2016-05-14 07:39] LABS: POTASSIUM 3.9 mmol/L (3.5-5.1)
[2016-05-14 07:42] LABS: CREATININE 1.2 mg/dl (0.44-1.00)
[2016-05-14 07:43] LABS: CALCIUM 7.2 mg/dl (8.4-10.2)
[2016-05-14 07:52] LABS: CONDITION 1; LH ANALYZER COMMENTS 1
[2016-05-14] MEDS: CITRIC ACID/NA CITRATE 30 ML CUP GTB SCH (08:56)
[2016-05-14] MEDS: ASCORBIC ACID 500 MG TAB GTB SCH (08:57)
[2016-05-14] MEDS: LEVETIRACETAM (100 MG/ML) 5ML CUP GTB SCH ×2 (08:57→22:08)
[2016-05-14] MEDS: FAMOTIDINE 20 MG TAB GTB SCH (08:57)
[2016-05-14] MEDS: ASPIRIN 81 MG TAB GTB SCH (08:57)
[2016-05-14] MEDS: MULTIVITAMINS 5 ML CUP GTB SCH (08:57)
[2016-05-14] MEDS: VORICONAZOLE 200 MG TAB GTB SCH ×2 (09:01→22:09)
[2016-05-14] MEDS: TIGECYCLINE 50 MG in SOD CHLORIDE 0.9% 100 ML IVPB SCH ×2 (09:01→22:08)
[2016-05-14] MEDS: COLLAGENASE 30 GM TUBE TOP SCH (13:03)
--- NOTE | 2016-05-14 15:58 | PN ---
Date/Time of Note Date/Time of Note DATE: 05/14/16 TIME: 15:57 Assessment/Plan VTE Prophylaxis VTE Prophylaxis Intervention: SCD's Lines/Catheters IV Catheter Type (from Nrsg): Peripheral IV Urinary Cath still in place: Yes Reason Cath still needed: other (indicate) Assessment/Plan Chief Complaint/Hosp Course ASSESSMENT AND PLAN: 1. Sepsis, likely secondary to urinary tract infection versus sacral decubitus. The patient has been started on Tygacil , flagyl, and V.fend as per ID recommendations . Follow up infectious disease recommendations. We'll continue monitor patient blood pressure, off pressors at this time 2. Acute on chronic respiratory failure, Ventilator-dependent respiratory failure, status post trach. Pulmonology has been consulted. 3. Acute renal insufficiency, improving status post IVF, likely secondary to sepsis versus dehydration. nephrology consulted. Continue IV fluids. 4. Diabetes mellitus. Continue sliding scale and Lantus. 5. History of cerebrovascular accident. No acute issues at this time. Patient is bed bound and a phasic 6. Dyslipidemia. Continue Lipitor. 7. Electrolyte imbalance , nephrology following 8. Essential Hypertension, continue to monitor restart blood pressure medications cautiously 9. C. difficile toxin, continue Flagyl 10. Hypokalemia, repleted 11. Hypernatremia, continue DW also start free water with PEG tube feeding every 8 hours, follow up electrolytes in a.m. We will continue monitor patient closely for recommendation management treatment as per clinical course Condition guarded Continue to monitor in telemetry floor Plan to discharge to [facility] facility when bed is available Discharge/transfer antibiotics as per infectious disease, Problems: Subjective 24 Hr Interval Summary Free Text/Dictation No acute changes Tolerating PEG tube feeding Exam/Review of Systems Vital Signs Vitals Vital Signs Date Time Temp Pulse Resp B/P Pulse Ox O2 Delivery O2 Flow Rate FiO2 05/14/16 15:00 84 21 100 30 05/14/16 14:25 99.0 122/65 05/13/16 12:00 Mechanical Ventilator Intake and Output 05/13/16 05/13/16 05/14/16 15:00 23:00 07:00 Intake Total 100 ml 950 ml 1450 ml Output Total 1000 ml 720 ml Balance 100 ml -50 ml 730 ml Exam Exam General: The patient is a phasic, on vent via trach, does not respond to any pain or verbal stimuli HEENT: Atraumatic, normocephalic. The pupils are equal Neck: Supple , trach in place Chest: Normal Lungs: Decreased breath sounds bilateral lower lung field, positive crackles Heart: Normal S1-S2, Regular rhythm and rate. Abdomen: Soft , nontender, nondistended , bowel sounds are present. PEG tube in place Extremities: Flaccid, + 2 edema no cyanosis Neurologic: No meaningful neurologic examination findings Skin: Stage IV sacral decubitus Results Result Diagram: 05/14/16 0645 05/14/16 0645 Results 24 hrs Laboratory Tests Test 05/13/16 17:05 05/13/16 22:06 05/14/16 01:00 05/14/16 06:04 Bedside Glucose 159 230 H 247 H 237 H Test 05/14/16 06:45 05/14/16 11:32 Anion Gap 18 H Basophils # 0.0 Basophils % 0.1 Blood Morphology Comment Blood Urea Nitrogen 42 H Calcium Level 7.2 L Carbon Dioxide Level 19 L Chloride Level 117 H Creatinine 1.20 H Eosinophils # 0.4 Eosinophils % 3.6 Glucose Level 224 H Hematocrit 25.9 L Hemoglobin 8.6 L Lymphocytes # 2.3 Lymphocytes % 18.8 Mean Corpuscular Hemoglobin 30.2 Mean Corpuscular Hemoglobin Concent 33.1 Mean Corpuscular Volume 91.1 Mean Platelet Volume 7.6 Monocytes # 0.6 Monocytes % 4.6 Neutrophils # 8.8 H Neutrophils % 72.9 Nucleated Red Blood Cells # 0.0 Nucleated Red Blood Cells % 0.0 Platelet Count 311 Potassium Level 3.9 Red Blood Count 2.84 L Red Cell Distribution Width 15.8 H Sodium Level 150 H White Blood Count 12.0 H Bedside Glucose 250 H Medications Medications Current Medications Morphine Sulfate (morphine) 2 mg Q4H PRN IV SEVERE PAIN LEVEL 7-10 Last administered on 05/07/16at 18:26; Admin Dose 2 MG; Start 05/04/16 at 07:30 Docusate Sodium (Colace) 100 mg Q12H PRN PO CONSTIPATION; Start 05/04/16 at 07 :30 Ondansetron HCl (Zofran Inj) 4 mg Q6H PRN IV NAUSEA AND/OR VOMITING Last administered on 05/05/16at 17:56; Admin Dose 4 MG; Start 05/04/16 at 07:30 Lorazepam (Ativan) 0.5 mg Q6H PRN IV ANXIETY Last administered on 05/06/16at 23 :58; Admin Dose 0.5 MG; Start 05/04/16 at 07:30 Hydralazine HCl (Apresoline) 10 mg Q6H PRN IV ELEVATED BLOOD PRESSURE; Start 05/04/16 at 07:30 Nitroglycerin (Nitroglycerin (Sl Tab) 0.4 Mg) 1 tab Q5M PRN SL ANGINA; Start 05/04/16 at 07:30 Acetaminophen (Tylenol Supp) [address] PAIN OR TEMP ABOVE 38C; Start at 07:30 Atorvastatin Calcium (Lipitor) 20 mg QHS GTB Last administered on 05/13/16at 21 :52; Admin Dose 20 MG; Start 05/04/16 at 21:00 Bisacodyl (Dulcolax Supp) [address] CONSTIPATION; Start 05/04/16 at 07 :30 Levetiracetam (Keppra Liquid) 1,000 mg Q12 GTB Last administered on 05/14/16at 08:57; Admin Dose 1,000 MG; Start 05/04/16 at 09:00 Multivitamins (Thera-Plus) 5 ml DAILY GTB Last administered on 05/14/16at 08:57 ; Admin Dose 5 ML; Start 05/04/16 at 09:00 Miscellaneous Information 1 ea NOTE XX ; Start 05/04/16 at 09:00 Glucose (Glutose) 15 gm Q15M PRN PO DECREASED GLUCOSE; Start 05/04/16 at 09:00 Glucose (Glutose) 22.5 gm Q15M PRN PO DECREASED GLUCOSE; Start 05/04/16 at 09: 00 Dextrose (D50w Syringe) 25 ml Q15M PRN IV DECREASED GLUCOSE; Start 05/04/16 at 09:00 Dextrose (D50w Syringe) 50 ml Q15M PRN IV DECREASED GLUCOSE; Start 05/04/16 at 09:00 Glucagon (Glucagen) 1 mg Q15M PRN IM DECREASED GLUCOSE; Start 05/04/16 at 09: 00 Glucose (Glutose) 15 gm Q15M PRN BUCCAL DECREASED GLUCOSE; Start 05/04/16 at 09:00 Acetaminophen (Tylenol Liquid) 650 mg Q6H PRN GTB PAIN LEVEL 1-3 OR FEVER Last administered on 05/11/16 06:39; Admin Dose 650 MG; Start 05/04/16 at 18:30 Metronidazole (Flagyl) 500 mg Q8 GTB Last administered on 05/14/16 15:05; Admin Dose 500 MG; Start 05/05/16 at 14:00 Collagenase (Santyl) APPLY TO NECROTIC TISSUE DAILY TOP Last administered on 13:03; Admin Dose 1 APPLIC; Start 05/06/16 at 16:30 Collagenase (Santyl) APPLY TO NECROTIC AREA PRN PRN TOP SOILING; Start at 16:00 Insulin Aspart (Novolog Insulin Pen) NOVOLOG *MODERATE* ALGORITHM Q6 SC Last administered on 05/14/16 11:43; Admin Dose 6 UNIT; Start 05/09/16 at 12:00 Aspirin 81 mg 81 mg DAILY GTB Last administered on 05/14/16 08:57; Admin Dose 81 MG; Start 05/10/16 at 09:00 Tigecycline/ Sodium Chloride (Tygacil/NS) 100 ml @ 200 mls/hr Q12 IVPB Last administered on 05/14/16 09:01; Admin Dose 200 MLS/HR; Start 05/10/16 at 06: 00 Ascorbic Acid (Vitamin C) 500 mg DAILY GTB Last administered on 05/14/16 08: 57; Admin Dose 500 MG; Start 05/10/16 at 11:00 Citric Acid/ Sodium Citrate (Bicitra) 30 ml BID GTB Last administered on 08:56; Admin Dose 30 ML; Start 05/10/16 at 11:00 Famotidine (Pepcid) 20 mg DAILY GTB Last administered on 05/14/16 08:57; Admin Dose 20 MG; Start 05/10/16 at 11:00 Acetaminophen/ Hydrocodone Bitart ([place] (5/325)) 1 tab Q6H PRN GTB MODERATE PAIN LEVEL 4-6; Start 05/10/16 at 13:30 Magnesium Hydroxide (Milk Of Mag) 30 ml DAILY PRN GTB CONSTIPATION; Start at 10:00 Voriconazole (Vfend) 200 mg BID GTB Last administered on 05/14/16 09:01; Admin Dose 200 MG; Start 05/10/16 at 11:00 Metoclopramide HCl 10 mg 10 mg Q6 GTB Last administered on 05/14/16at 11:33; Admin Dose 10 MG; Start 05/10/16 at 18:00 Potassium Chloride/Dextrose (KCl/D5W) 1,015 ml @ 100 mls/hr Q10H9M IV Last administered on 05/14/16at 05:08; Admin Dose 100 MLS/HR; Start 05/13/16 at 17: 30 Hydralazine HCl (Apresoline) 25 mg Q8H GTB ; Start 05/14/16 at 20:00 AMY HANKINS MD May 14, 2016 15:58
--- NOTE | 2016-05-14 16:16 | CONS ---
Date/Time of Note Date/Time of Note DATE: 05/14/16 TIME: 16:15 Consult Date/Type/Reason Admit Date/Time May 04, 2016 at 05:51 Type of Consultation: ID Subjective no events, lying comfortably in bed, noncommunicative, no fevers Objective Vital Signs Date Time Temp Pulse Resp B/P Pulse Ox O2 Delivery O2 Flow Rate FiO2 05/14/16 15:00 84 21 100 30 05/14/16 14:25 99.0 122/65 05/13/16 12:00 Mechanical Ventilator Intake and Output 05/13/16 05/13/16 05/14/16 15:00 23:00 07:00 Intake Total 100 ml 950 ml 1450 ml Output Total 1000 ml 720 ml Balance 100 ml -50 ml 730 ml Results/Medications Result Diagram: 05/14/16 0645 05/14/16 0645 Results 24 hrs Laboratory Tests Test 05/13/16 17:05 05/13/16 22:06 05/14/16 01:00 05/14/16 06:04 Bedside Glucose 159 230 H 247 H 237 H Test 05/14/16 06:45 05/14/16 11:32 Anion Gap 18 H Basophils # 0.0 Basophils % 0.1 Blood Morphology Comment Blood Urea Nitrogen 42 H Calcium Level 7.2 L Carbon Dioxide Level 19 L Chloride Level 117 H Creatinine 1.20 H Eosinophils # 0.4 Eosinophils % 3.6 Glucose Level 224 H Hematocrit 25.9 L Hemoglobin 8.6 L Lymphocytes # 2.3 Lymphocytes % 18.8 Mean Corpuscular Hemoglobin 30.2 Mean Corpuscular Hemoglobin Concent 33.1 Mean Corpuscular Volume 91.1 Mean Platelet Volume 7.6 Monocytes # 0.6 Monocytes % 4.6 Neutrophils # 8.8 H Neutrophils % 72.9 Nucleated Red Blood Cells # 0.0 Nucleated Red Blood Cells % 0.0 Platelet Count 311 Potassium Level 3.9 Red Blood Count 2.84 L Red Cell Distribution Width 15.8 H Sodium Level 150 H White Blood Count 12.0 H Bedside Glucose 250 H Medications Current Medications Morphine Sulfate (morphine) 2 mg Q4H PRN IV SEVERE PAIN LEVEL 7-10 Last administered on 05/07/16at 18:26; Admin Dose 2 MG; Start 05/04/16 at 07:30 Docusate Sodium (Colace) 100 mg Q12H PRN PO CONSTIPATION; Start 05/04/16 at 07 :30 Ondansetron HCl (Zofran Inj) 4 mg Q6H PRN IV NAUSEA AND/OR VOMITING Last administered on 05/05/16at 17:56; Admin Dose 4 MG; Start 05/04/16 at 07:30 Lorazepam (Ativan) 0.5 mg Q6H PRN IV ANXIETY Last administered on 05/06/16at 23 :58; Admin Dose 0.5 MG; Start 05/04/16 at 07:30 Hydralazine HCl (Apresoline) 10 mg Q6H PRN IV ELEVATED BLOOD PRESSURE; Start 05/04/16 at 07:30 Nitroglycerin (Nitroglycerin (Sl Tab) 0.4 Mg) 1 tab Q5M PRN SL ANGINA; Start 05/04/16 at 07:30 Acetaminophen (Tylenol Supp) 650 mg Q4 PRN IN PAIN OR TEMP ABOVE 38C; Start at 07:30 Atorvastatin Calcium (Lipitor) 20 mg QHS GTB Last administered on 05/13/16at 21 :52; Admin Dose 20 MG; Start 05/04/16 at 21:00 Bisacodyl (Dulcolax Supp) 10 mg Q24H PRN IN CONSTIPATION; Start 05/04/16 at 07 :30 Levetiracetam (Keppra Liquid) 1,000 mg Q12 GTB Last administered on 05/14/16at 08:57; Admin Dose 1,000 MG; Start 05/04/16 at 09:00 Multivitamins (Thera-Plus) 5 ml DAILY GTB Last administered on 05/14/16at 08:57 ; Admin Dose 5 ML; Start 05/04/16 at 09:00 Miscellaneous Information 1 ea NOTE XX ; Start 05/04/16 at 09:00 Glucose (Glutose) 15 gm Q15M PRN PO DECREASED GLUCOSE; Start 05/04/16 at 09:00 Glucose (Glutose) 22.5 gm Q15M PRN PO DECREASED GLUCOSE; Start 05/04/16 at 09: 00 Dextrose (D50w Syringe) 25 ml Q15M PRN IV DECREASED GLUCOSE; Start 05/04/16 at 09:00 Dextrose (D50w Syringe) 50 ml Q15M PRN IV DECREASED GLUCOSE; Start 05/04/16 at 09:00 Glucagon (Glucagen) 1 mg Q15M PRN IM DECREASED GLUCOSE; Start 05/04/16 at 09: 00 Glucose (Glutose) 15 gm Q15M PRN BUCCAL DECREASED GLUCOSE; Start 05/04/16 at 09:00 Acetaminophen (Tylenol Liquid) 650 mg Q6H PRN GTB PAIN LEVEL 1-3 OR FEVER Last administered on 05/11/16 06:39; Admin Dose 650 MG; Start 05/04/16 at 18:30 Metronidazole (Flagyl) 500 mg Q8 GTB Last administered on 05/14/16 15:05; Admin Dose 500 MG; Start 05/05/16 at 14:00 Collagenase (Santyl) APPLY TO NECROTIC TISSUE DAILY TOP Last administered on 13:03; Admin Dose 1 APPLIC; Start 05/06/16 at 16:30 Collagenase (Santyl) APPLY TO NECROTIC AREA PRN PRN TOP SOILING; Start at 16:00 Insulin Aspart (Novolog Insulin Pen) NOVOLOG *MODERATE* ALGORITHM Q6 SC Last administered on 05/14/16 11:43; Admin Dose 6 UNIT; Start 05/09/16 at 12:00 Aspirin 81 mg 81 mg DAILY GTB Last administered on 05/14/16 08:57; Admin Dose 81 MG; Start 05/10/16 at 09:00 Tigecycline/ Sodium Chloride (Tygacil/NS) 100 ml @ 200 mls/hr Q12 IVPB Last administered on 05/14/16 09:01; Admin Dose 200 MLS/HR; Start 05/10/16 at 06: 00 Ascorbic Acid (Vitamin C) 500 mg DAILY GTB Last administered on 05/14/16 08: 57; Admin Dose 500 MG; Start 05/10/16 at 11:00 Citric Acid/ Sodium Citrate (Bicitra) 30 ml BID GTB Last administered on 08:56; Admin Dose 30 ML; Start 05/10/16 at 11:00 Famotidine (Pepcid) 20 mg DAILY GTB Last administered on 05/14/16 08:57; Admin Dose 20 MG; Start 05/10/16 at 11:00 Acetaminophen/ Hydrocodone Bitart (Leonard (5/325)) 1 tab Q6H PRN GTB MODERATE PAIN LEVEL 4-6; Start 05/10/16 at 13:30 Magnesium Hydroxide (Milk Of Mag) 30 ml DAILY PRN GTB CONSTIPATION; Start at 10:00 Voriconazole (Vfend) 200 mg BID GTB Last administered on 05/14/16at 09:01; Admin Dose 200 MG; Start 05/10/16 at 11:00 Metoclopramide HCl 10 mg 10 mg Q6 GTB Last administered on 05/14/16at 11:33; Admin Dose 10 MG; Start 05/10/16 at 18:00 Potassium Chloride/Dextrose (KCl/D5W) 1,015 ml @ 100 mls/hr Q10H9M IV Last administered on 05/14/16at 05:08; Admin Dose 100 MLS/HR; Start 05/13/16 at 17: 30 Hydralazine HCl (Apresoline) 25 mg Q8H GTB ; Start 05/14/16 at 20:00 Insulin Glargine (Lantus) 14 unit QPM SC ; Start 05/14/16 at 21:00 Assessment/Plan Chief Complaint/Hosp Course INDWELLINGS: Trach, PEG, Reynolds, ELECTRONIC FUNDS TRANSFER COORDINATOR shunt. ANTIMICROBIALS: Tygacil, Flagyl, Voriconazole. PHYSICAL EXAMINATION: GENERAL: This is a chronically ill-appearing, middle-aged woman who is obtunded in no distress. HEENT: Head atraumatic, normocephalic. Sclerae anicteric. Buccal mucosa dry. NECK: Supple. Tracheostomy present. CHEST: Rise symmetrical. Breath sounds diminished at the bases. HEART: S1, S2. ABDOMEN: Soft, bowel tones present. EXTREMITIES: Without cyanosis. ASSESSMENT: 1. S/p sepsis with shock. 2. Clostridium difficile colitis. 3. Unstageable sacral decubitus, possible osteomyelitis with a history of multiple debridements. 4. 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 5. Seizure disorder. 6. Chronic encephalopathy. 7. Urinary tract infection with culture grew Deyanira glabrata. PLAN: Clinically unchanged, continue abx, local wound care, f/u urine cx, f/u repeat stool for C dif DW staff Problems: DUTCH STEELE NP May 14, 2016 16:16
--- NOTE | 2016-05-14 16:26 | CONS ---
Date/Time of Note Date/Time of Note DATE: 05/14/16 TIME: 16:25 Assessment/Plan Assessment/Plan Chief Complaint/Hosp Course IMPRESSION: 1. Patient has [id number]-ghjpycv kidney disease. 2. Acute renal failure due to dehydration. 3. Underlying acute tubular necrosis due to sepsis. 4. Severe sepsis. 5. hypernatremia. 6. Free water deficit. 7. Hypokalemia. 8. Lactic acidosis. 9. Normal alkaline phosphatase. 10. Anemia. 11. History of tracheostomy. 12 METABOLIC ACIDOSIS PLAN KCL CK LABS d5 w WATER G TUBE CK BMP Problems: Consultation Date/Type/Reason Admit Date/Time May 04, 2016 at 05:51 Type of Consultation: renal Exam/Review of Systems Vital Signs Vitals Vital Signs Date Time Temp Pulse Resp B/P Pulse Ox O2 Delivery O2 Flow Rate FiO2 05/14/16 15:00 84 21 100 30 05/14/16 14:25 99.0 122/65 05/13/16 12:00 Mechanical Ventilator Intake and Output 05/13/16 05/13/16 05/14/16 15:00 23:00 07:00 Intake Total 100 ml 950 ml 1450 ml Output Total 1000 ml 720 ml Balance 100 ml -50 ml 730 ml Exam Neck: supple Respiratory: diminished breath sounds Cardiovascular: regular rate and rhythm Gastrointestinal: bowel sounds (+), soft Extremities: edema (+) Results Result Diagram: 05/14/16 0645 05/14/16 0645 Results 24 hrs Laboratory Tests Test 05/13/16 17:05 05/13/16 22:06 05/14/16 01:00 05/14/16 06:04 Bedside Glucose 159 230 H 247 H 237 H Test 05/14/16 06:45 05/14/16 11:32 Anion Gap 18 H Basophils # 0.0 Basophils % 0.1 Blood Morphology Comment Blood Urea Nitrogen 42 H Calcium Level 7.2 L Carbon Dioxide Level 19 L Chloride Level 117 H Creatinine 1.20 H Eosinophils # 0.4 Eosinophils % 3.6 Glucose Level 224 H Hematocrit 25.9 L Hemoglobin 8.6 L Lymphocytes # 2.3 Lymphocytes % 18.8 Mean Corpuscular Hemoglobin 30.2 Mean Corpuscular Hemoglobin Concent 33.1 Mean Corpuscular Volume 91.1 Mean Platelet Volume 7.6 Monocytes # 0.6 Monocytes % 4.6 Neutrophils # 8.8 H Neutrophils % 72.9 Nucleated Red Blood Cells # 0.0 Nucleated Red Blood Cells % 0.0 Platelet Count 311 Potassium Level 3.9 Red Blood Count 2.84 L Red Cell Distribution Width 15.8 H Sodium Level 150 H White Blood Count 12.0 H Bedside Glucose 250 H Medications Medications Current Medications Morphine Sulfate (morphine) 2 mg Q4H PRN IV SEVERE PAIN LEVEL 7-10 Last administered on 05/07/16 18:26; Admin Dose 2 MG; Start 05/04/16 at 07:30 Docusate Sodium (Colace) 100 mg Q12H PRN PO CONSTIPATION; Start 05/04/16 at 07 :30 Ondansetron HCl (Zofran Inj) 4 mg Q6H PRN IV NAUSEA AND/OR VOMITING Last administered on 05/05/16at 17:56; Admin Dose 4 MG; Start 05/04/16 at 07:30 Lorazepam (Ativan) 0.5 mg Q6H PRN IV ANXIETY Last administered on 05/06/16at 23 :58; Admin Dose 0.5 MG; Start 05/04/16 at 07:30 Hydralazine HCl (Apresoline) 10 mg Q6H PRN IV ELEVATED BLOOD PRESSURE; Start 05/04/16 at 07:30 Nitroglycerin (Nitroglycerin (Sl Tab) 0.4 Mg) 1 tab Q5M PRN SL ANGINA; Start 05/04/16 at 07:30 Acetaminophen (Tylenol Supp) 650 mg Q4 PRN [place] PAIN OR TEMP ABOVE 38C; Start at 07:30 Atorvastatin Calcium (Lipitor) 20 mg QHS GTB Last administered on 05/13/16at 21 :52; Admin Dose 20 MG; Start 05/04/16 at 21:00 Bisacodyl (Dulcolax Supp) 10 mg Q24H PRN [place] CONSTIPATION; Start 05/04/16 at 07 :30 Levetiracetam (Keppra Liquid) 1,000 mg Q12 GTB Last administered on 05/14/16at 08:57; Admin Dose 1,000 MG; Start 05/04/16 at 09:00 Multivitamins (Thera-Plus) 5 ml DAILY GTB Last administered on 05/14/16at 08:57 ; Admin Dose 5 ML; Start 05/04/16 at 09:00 Miscellaneous Information 1 ea NOTE XX ; Start 05/04/16 at 09:00 Glucose (Glutose) 15 gm Q15M PRN PO DECREASED GLUCOSE; Start 05/04/16 at 09:00 Glucose (Glutose) 22.5 gm Q15M PRN PO DECREASED GLUCOSE; Start 05/04/16 at 09: 00 Dextrose (D50w Syringe) 25 ml Q15M PRN IV DECREASED GLUCOSE; Start 05/04/16 at 09:00 Dextrose (D50w Syringe) 50 ml Q15M PRN IV DECREASED GLUCOSE; Start 05/04/16 at 09:00 Glucagon (Glucagen) 1 mg Q15M PRN IM DECREASED GLUCOSE; Start 05/04/16 at 09: 00 Glucose (Glutose) 15 gm Q15M PRN BUCCAL DECREASED GLUCOSE; Start 05/04/16 at 09:00 Acetaminophen (Tylenol Liquid) 650 mg Q6H PRN GTB PAIN LEVEL 1-3 OR FEVER Last administered on 05/11/16at 06:39; Admin Dose 650 MG; Start 05/04/16 at 18:30 Metronidazole (Flagyl) 500 mg Q8 GTB Last administered on 05/14/16at 15:05; Admin Dose 500 MG; Start 05/05/16 at 14:00 Collagenase (Santyl) APPLY TO NECROTIC TISSUE DAILY TOP Last administered on at 13:03; Admin Dose 1 APPLIC; Start 05/06/16 at 16:30 Collagenase (Santyl) APPLY TO NECROTIC AREA PRN PRN TOP SOILING; Start at 16:00 Insulin Aspart (Novolog Insulin Pen) NOVOLOG *MODERATE* ALGORITHM Q6 SC Last administered on 05/14/16at 11:43; Admin Dose 6 UNIT; Start 05/09/16 at 12:00 Aspirin 81 mg 81 mg DAILY GTB Last administered on 05/14/16at 08:57; Admin Dose 81 MG; Start 05/10/16 at 09:00 Tigecycline/ Sodium Chloride (Tygacil/NS) 100 ml @ 200 mls/hr Q12 IVPB Last administered on 05/14/16at 09:01; Admin Dose 200 MLS/HR; Start 05/10/16 at 06: 00 Ascorbic Acid (Vitamin C) 500 mg DAILY GTB Last administered on 05/14/16at 08: 57; Admin Dose 500 MG; Start 05/10/16 at 11:00 Citric Acid/ Sodium Citrate (Bicitra) 30 ml BID GTB Last administered on at 08:56; Admin Dose 30 ML; Start 05/10/16 at 11:00 Famotidine (Pepcid) 20 mg DAILY GTB Last administered on 05/14/16at 08:57; Admin Dose 20 MG; Start 05/10/16 at 11:00 Acetaminophen/ Hydrocodone Bitart (Arnold (5/325)) 1 tab Q6H PRN GTB MODERATE PAIN LEVEL 4-6; Start 05/10/16 at 13:30 Magnesium Hydroxide (Milk Of Mag) 30 ml DAILY PRN GTB CONSTIPATION; Start at 10:00 Voriconazole (Vfend) 200 mg BID GTB Last administered on 05/14/16at 09:01; Admin Dose 200 MG; Start 05/10/16 at 11:00 Metoclopramide HCl 10 mg 10 mg Q6 GTB Last administered on 05/14/16at 11:33; Admin Dose 10 MG; Start 05/10/16 at 18:00 Potassium Chloride/Dextrose (KCl/D5W) 1,015 ml @ 100 mls/hr Q10H9M IV Last administered on 05/14/16at 05:08; Admin Dose 100 MLS/HR; Start 05/13/16 at 17: 30 Hydralazine HCl (Apresoline) 25 mg Q8H GTB ; Start 05/14/16 at 20:00 Insulin Glargine (Lantus) 14 unit QPM SC ; Start 05/14/16 at 21:00 AMBER LIEBERMAN MD May 14, 2016 16:26
[2016-05-14] MEDS: ATORVASTATIN 20 MG TAB GTB SCH (22:09)
[2016-05-14] MEDS: INSULIN GLARGINE [LANtus] 3 ML PEN SC SCH (22:53)
[2016-05-15] VITALS (24 sets, daily range): BP systolic 80–127; BP diastolic 42–74; PULSE 79–90; RESP 15–21
[2016-05-15] MEDS: METOCLOPRAMIDE (1 MG/ML) 10 ML CUP GTB SCH ×4 (00:49→17:55)
[2016-05-15] MEDS: INSULIN ASPART [NOVOLOG] 3 ML PEN SC SCH ×4 (00:57→17:52)
[2016-05-15] MEDS: POTASSIUM CHLORIDE 30 MEQ in DEXTROSE 5% 1,000 ML IV SCH ×3 (04:17→21:13)
[2016-05-15] MEDS: metroNIDAZOLE 500 MG TAB GTB SCH ×3 (06:12→21:28)
[2016-05-15 06:43] LABS: BASOPHIL # 0.1 10^3/ul (0.0-0.1); BASOPHILS % 0.4 % (0.0-2.0); EOSINOPHILS # 0.5 10^3/ul (0.0-0.5); EOSINOPHILS % 3.8 % (0.0-7.0); HEMATOCRIT 25.1 % (37.0-47.0); HEMOGLOBIN 8.4 g/dl (12.0-16.0); LYMPHOCYTES # 2.3 10^3/ul (0.8-2.9); LYMPHOCYTES % 18.9 % (15.0-51.0); MEAN CORPUSCULAR HEMOGLOBIN 30.3 pg (29.0-33.0); MEAN CORPUSCULAR HGB CONC 33.3 g/dl (32.0-37.0); MEAN CORPUSCULAR VOLUME 90.9 fl (82.0-101.0); MEAN PLATELET VOLUME 7.7 fl (7.4-10.4); MONOCYTE # 0.5 10^3/ul (0.3-0.9); MONOCYTES % 3.8 % (0.0-11.0); NEUTROPHIL # 9.1 10^3/ul (1.6-7.5); NEUTROPHILS % 73.1 % (39.0-77.0); PLATELET COUNT 307 10^3/UL (140-440); RED BLOOD COUNT 2.76 10^6/ul (4.20-5.40); RED CELL DISTRIBUTION WIDTH 16.1 % (11.5-14.5); UNCORRECTED WBC 12.4 10^3/ul (4.8-10.8); WHITE BLOOD COUNT 12.4 10^3/ul (4.8-10.8)
[2016-05-15 06:50] LABS: POTASSIUM 4.5 mmol/L (3.5-5.1)
[2016-05-15 06:53] LABS: CREATININE 1.04 mg/dl (0.44-1.00)
[2016-05-15 06:54] LABS: CALCIUM 7.2 mg/dl (8.4-10.2)
[2016-05-15 07:04] LABS: CONDITION 1; LH ANALYZER COMMENTS 1
--- NOTE | 2016-05-15 08:22 | PN ---
Date/Time of Note Date/Time of Note DATE: 05/15/16 TIME: 08:19 Assessment/Plan VTE Prophylaxis VTE Prophylaxis Intervention: SCD's Lines/Catheters IV Catheter Type (from Nrsg): Peripheral IV Urinary Cath still in place: Yes Reason Cath still needed: other (indicate) Assessment/Plan Chief Complaint/Hosp Course ASSESSMENT AND PLAN: 1. Sepsis, likely secondary to urinary tract infection versus sacral decubitus. The patient has been started on Tygacil , flagyl, and V.fend as per ID recommendations . Follow up infectious disease recommendations. We'll continue monitor patient blood pressure, off pressors at this time 2. Acute on chronic respiratory failure, Ventilator-dependent respiratory failure, status post trach. Pulmonology has been consulted. 3. Acute renal insufficiency, improving status post IVF, likely secondary to sepsis versus dehydration. nephrology consulted. Continue IV fluids. 4. Diabetes mellitus. Continue sliding scale and Lantus. 5. History of cerebrovascular accident. No acute issues at this time. Patient is bed bound and a phasic 6. Dyslipidemia. Continue Lipitor. 7. Electrolyte imbalance , nephrology following 8. Essential Hypertension, continue to monitor restart blood pressure medications cautiously 9. C. difficile toxin, continue Flagyl 10. Hypokalemia, repleted 11. Hypernatremia, continue DW also start free water with PEG tube feeding every 8 hours, follow up electrolytes in a.m. We will continue monitor patient closely for recommendation management treatment as per clinical course Condition guarded Continue to monitor in telemetry floor Plan to discharge to [facility] facility when bed is available Discharge/transfer antibiotics as per infectious disease, Problems: Subjective 24 Hr Interval Summary Free Text/Dictation No acute changes Patient is tolerating PEG tube feeding Exam/Review of Systems Vital Signs Vitals Vital Signs Date Time Temp Pulse Resp B/P Pulse Ox O2 Delivery O2 Flow Rate FiO2 05/15/16 07:38 100.1 89 20 122/68 100 05/15/16 05:13 30 05/13/16 12:00 Mechanical Ventilator Intake and Output 05/14/16 05/14/16 05/15/16 15:00 23:00 07:00 Intake Total 100 ml 1510 ml 710 ml Output Total 1750 ml 1100 ml Balance 100 ml -240 ml -390 ml Exam General: The patient is a phasic, on vent via trach, does not respond to any pain or verbal stimuli HEENT: Atraumatic, normocephalic. The pupils are equal Neck: Supple , trach in place Chest: Normal Lungs: Decreased breath sounds bilateral lower lung field, positive crackles Heart: Normal S1-S2, Regular rhythm and rate. Abdomen: Soft , nontender, nondistended , bowel sounds are present. PEG tube in place Extremities: Flaccid, + 2 edema no cyanosis Neurologic: No meaningful neurologic examination findings Skin: Stage IV sacral decubitus Results Result Diagram: 05/15/16 0544 05/15/16 0544 Results 24 hrs Laboratory Tests Test 05/14/16 11:32 05/14/16 17:15 05/14/16 22:29 05/15/16 00:49 Bedside Glucose 250 H 271 H 205 212 Test 05/15/16 05:44 05/15/16 06:19 Anion Gap 16 Basophils # 0.1 Basophils % 0.4 Blood Morphology Comment Blood Urea Nitrogen 36 H Calcium Level 7.2 L Carbon Dioxide Level 19 L Chloride Level 114 H Creatinine 1.04 H Eosinophils # 0.5 Eosinophils % 3.8 Glucose Level 185 Hematocrit 25.1 L Hemoglobin 8.4 L Lymphocytes # 2.3 Lymphocytes % 18.9 Mean Corpuscular Hemoglobin 30.3 Mean Corpuscular Hemoglobin Concent 33.3 Mean Corpuscular Volume 90.9 Mean Platelet Volume 7.7 Monocytes # 0.5 Monocytes % 3.8 Neutrophils # 9.1 H Neutrophils % 73.1 Nucleated Red Blood Cells # 0.0 Nucleated Red Blood Cells % 0.0 Platelet Count 307 Potassium Level 4.5 Red Blood Count 2.76 L Red Cell Distribution Width 16.1 H Sodium Level 144 White Blood Count 12.4 H Bedside Glucose 205 Medications Medications Current Medications Morphine Sulfate (morphine) 2 mg Q4H PRN IV SEVERE PAIN LEVEL 7-10 Last administered on 05/07/16at 18:26; Admin Dose 2 MG; Start 05/04/16 at 07:30 Docusate Sodium (Colace) 100 mg Q12H PRN PO CONSTIPATION; Start 05/04/16 at 07 :30 Ondansetron HCl (Zofran Inj) 4 mg Q6H PRN IV NAUSEA AND/OR VOMITING Last administered on 05/05/16at 17:56; Admin Dose 4 MG; Start 05/04/16 at 07:30 Lorazepam (Ativan) 0.5 mg Q6H PRN IV ANXIETY Last administered on 05/06/16at 23 :58; Admin Dose 0.5 MG; Start 05/04/16 at 07:30 Hydralazine HCl (Apresoline) 10 mg Q6H PRN IV ELEVATED BLOOD PRESSURE; Start 05/04/16 at 07:30 Nitroglycerin (Nitroglycerin (Sl Tab) 0.4 Mg) 1 tab Q5M PRN SL ANGINA; Start 05/04/16 at 07:30 Acetaminophen (Tylenol Supp) [address] PAIN OR TEMP ABOVE 38C; Start at 07:30 Atorvastatin Calcium (Lipitor) 20 mg QHS GTB Last administered on 05/14/16at 22 :09; Admin Dose 20 MG; Start 05/04/16 at 21:00 Bisacodyl (Dulcolax Supp) [address] CONSTIPATION; Start 05/04/16 at 07 :30 Levetiracetam (Keppra Liquid) 1,000 mg Q12 GTB Last administered on 05/14/16at 22:08; Admin Dose 1,000 MG; Start 05/04/16 at 09:00 Multivitamins (Thera-Plus) 5 ml DAILY GTB Last administered on 05/14/16at 08:57 ; Admin Dose 5 ML; Start 05/04/16 at 09:00 Miscellaneous Information 1 ea NOTE XX ; Start 05/04/16 at 09:00 Glucose (Glutose) 15 gm Q15M PRN PO DECREASED GLUCOSE; Start 05/04/16 at 09:00 Glucose (Glutose) 22.5 gm Q15M PRN PO DECREASED GLUCOSE; Start 05/04/16 at 09: 00 Dextrose (D50w Syringe) 25 ml Q15M PRN IV DECREASED GLUCOSE; Start 05/04/16 at 09:00 Dextrose (D50w Syringe) 50 ml Q15M PRN IV DECREASED GLUCOSE; Start 05/04/16 at 09:00 Glucagon (Glucagen) 1 mg Q15M PRN IM DECREASED GLUCOSE; Start 05/04/16 at 09: 00 Glucose (Glutose) 15 gm Q15M PRN BUCCAL DECREASED GLUCOSE; Start 05/04/16 at 09:00 Acetaminophen (Tylenol Liquid) 650 mg Q6H PRN GTB PAIN LEVEL 1-3 OR FEVER Last administered on 05/11/16 06:39; Admin Dose 650 MG; Start 05/04/16 at 18:30 Metronidazole (Flagyl) 500 mg Q8 GTB Last administered on 05/15/16 06:12; Admin Dose 500 MG; Start 05/05/16 at 14:00 Collagenase (Santyl) APPLY TO NECROTIC TISSUE DAILY TOP Last administered on 13:03; Admin Dose 1 APPLIC; Start 05/06/16 at 16:30 Collagenase (Santyl) APPLY TO NECROTIC AREA PRN PRN TOP SOILING; Start at 16:00 Insulin Aspart (Novolog Insulin Pen) NOVOLOG *MODERATE* ALGORITHM Q6 SC Last administered on 05/15/16 06:26; Admin Dose 4 UNIT; Start 05/09/16 at 12:00 Aspirin 81 mg 81 mg DAILY GTB Last administered on 05/14/16 08:57; Admin Dose 81 MG; Start 05/10/16 at 09:00 Tigecycline/ Sodium Chloride (Tygacil/NS) 100 ml @ 200 mls/hr Q12 IVPB Last administered on 05/14/16 22:08; Admin Dose 200 MLS/HR; Start 05/10/16 at 06: 00 Ascorbic Acid (Vitamin C) 500 mg DAILY GTB Last administered on 05/14/16 08: 57; Admin Dose 500 MG; Start 05/10/16 at 11:00 Famotidine (Pepcid) 20 mg DAILY GTB Last administered on 05/14/16 08:57; Admin Dose 20 MG; Start 05/10/16 at 11:00 Acetaminophen/ Hydrocodone Bitart (Brant (5/325)) 1 tab Q6H PRN GTB MODERATE PAIN LEVEL 4-6; Start 05/10/16 at 13:30 Magnesium Hydroxide (Milk Of Mag) 30 ml DAILY PRN GTB CONSTIPATION; Start at 10:00 Voriconazole (Vfend) 200 mg BID GTB Last administered on 05/14/16 22:09; Admin Dose 200 MG; Start 05/10/16 at 11:00 Metoclopramide HCl 10 mg 10 mg Q6 GTB Last administered on 05/15/16 06:12; Admin Dose 10 MG; Start 05/10/16 at 18:00 Potassium Chloride/Dextrose (KCl/D5W) 1,015 ml @ 100 mls/hr Q10H9M IV Last administered on 05/15/16at 04:17; Admin Dose 100 MLS/HR; Start 05/13/16 at 17: 30 Hydralazine HCl (Apresoline) 25 mg Q8H GTB Last administered on 05/15/16at 04: 17; Admin Dose 25 MG; Start 05/14/16 at 20:00 Insulin Glargine (Lantus) 14 unit QPM SC Last administered on 05/14/16at 22:53 ; Admin Dose 14 UNIT; Start 05/14/16 at 21:00 AMY HANKINS MD May 15, 2016 08:22
[2016-05-15] MEDS: TIGECYCLINE 50 MG in SOD CHLORIDE 0.9% 100 ML IVPB SCH ×2 (09:00→21:20)
[2016-05-15] MEDS: ASCORBIC ACID 500 MG TAB GTB SCH (09:42)
[2016-05-15] MEDS: ASPIRIN 81 MG TAB GTB SCH (09:42)
[2016-05-15] MEDS: FAMOTIDINE 20 MG TAB GTB SCH (09:42)
[2016-05-15] MEDS: LEVETIRACETAM (100 MG/ML) 5ML CUP GTB SCH ×2 (09:43→21:13)
[2016-05-15] MEDS: VORICONAZOLE 200 MG TAB GTB SCH ×2 (09:44→21:13)
[2016-05-15] MEDS: MULTIVITAMINS 5 ML CUP GTB SCH (09:44)
[2016-05-15] MEDS: ACETAMINOPHEN 650MG/20.3ML CUP GTB PRN (09:44)
[2016-05-15] MEDS: COLLAGENASE 30 GM TUBE TOP SCH (09:45)
--- NOTE | 2016-05-15 13:16 | CONS ---
Date/Time of Note Date/Time of Note DATE: 05/15/16 TIME: 13:13 Assessment/Plan Assessment/Plan Additional Assessment/Plan 1. Sepsis, likely secondary to urinary tract infection versus sacral decubitus. 2. Acute on chronic respiratory failure, Ventilator-dependent respiratory failure, status post trach. Pulmonology has been consulted. 3. Acute kidney injury due to prerenal azotemia + ATN 4. Diabetes mellitus 5. History of cerebrovascular accident. 6. Dyslipidemia. Plan: Cr imrpoving, HCO3 still low- will start bicitra Expecting renal function to improve with IVF will follow up Consultation Date/Type/Reason Admit Date/Time May 04, 2016 at 05:51 Initial Consult Date Type of Consultation: NEPHROLOGY Referring Provider: AMY HANKINS MD 24 HR Interval Summary Free Text/Dictation no acute events, Cr better, Bp stable Exam/Review of Systems Vital Signs Vitals Vital Signs Date Time Temp Pulse Resp B/P Pulse Ox O2 Delivery O2 Flow Rate FiO2 05/15/16 12:20 79 05/15/16 12:07 99.5 20 114/63 100 05/15/16 11:07 30 05/13/16 12:00 Mechanical Ventilator Intake and Output 05/14/16 05/14/16 05/15/16 14:59 22:59 06:59 Intake Total 100 ml 1510 ml 710 ml Output Total 1750 ml 1100 ml Balance 100 ml -240 ml -390 ml Exam General: The patient is a phasic, on vent via trach, does not respond to any pain or verbal stimuli Lungs: Decreased breath sounds bilateral lower lung field, positive crackles Heart: Normal S1-S2, Regular rhythm and rate. Abdomen: Soft , nontender, nondistended , bowel sounds are present. PEG tube in place Extremities: Flaccid, + 2 edema no cyanosis Skin: Stage IV sacral decubitus Results Result Diagram: 05/15/16 0544 05/15/16 0544 Results 24 hrs Laboratory Tests Test 05/14/16 17:15 05/14/16 22:29 05/15/16 00:49 05/15/16 05:44 Bedside Glucose 271 H 205 212 Anion Gap 16 Basophils # 0.1 Basophils % 0.4 Blood Morphology Comment Blood Urea Nitrogen 36 H Calcium Level 7.2 L Carbon Dioxide Level 19 L Chloride Level 114 H Creatinine 1.04 H Eosinophils # 0.5 Eosinophils % 3.8 Glucose Level 185 Hematocrit 25.1 L Hemoglobin 8.4 L Lymphocytes # 2.3 Lymphocytes % 18.9 Mean Corpuscular Hemoglobin 30.3 Mean Corpuscular Hemoglobin Concent 33.3 Mean Corpuscular Volume 90.9 Mean Platelet Volume 7.7 Monocytes # 0.5 Monocytes % 3.8 Neutrophils # 9.1 H Neutrophils % 73.1 Nucleated Red Blood Cells # 0.0 Nucleated Red Blood Cells % 0.0 Platelet Count 307 Potassium Level 4.5 Red Blood Count 2.76 L Red Cell Distribution Width 16.1 H Sodium Level 144 White Blood Count 12.4 H Test 05/15/16 06:19 05/15/16 12:38 Bedside Glucose 205 205 Medications Medications Current Medications Morphine Sulfate (morphine) 2 mg Q4H PRN IV SEVERE PAIN LEVEL 7-10 Last administered on 05/07/16at 18:26; Admin Dose 2 MG; Start 05/04/16 at 07:30 Docusate Sodium (Colace) 100 mg Q12H PRN PO CONSTIPATION; Start 05/04/16 at 07 :30 Ondansetron HCl (Zofran Inj) 4 mg Q6H PRN IV NAUSEA AND/OR VOMITING Last administered on 05/05/16at 17:56; Admin Dose 4 MG; Start 05/04/16 at 07:30 Lorazepam (Ativan) 0.5 mg Q6H PRN IV ANXIETY Last administered on 05/06/16at 23 :58; Admin Dose 0.5 MG; Start 05/04/16 at 07:30 Hydralazine HCl (Apresoline) 10 mg Q6H PRN IV ELEVATED BLOOD PRESSURE; Start 05/04/16 at 07:30 Nitroglycerin (Nitroglycerin (Sl Tab) 0.4 Mg) 1 tab Q5M PRN SL ANGINA; Start 05/04/16 at 07:30 Acetaminophen (Tylenol Supp) 650 mg Q4 PRN [place] PAIN OR TEMP ABOVE 38C; Start at 07:30 Atorvastatin Calcium (Lipitor) 20 mg QHS GTB Last administered on 05/14/16at 22 :09; Admin Dose 20 MG; Start 05/04/16 at 21:00 Bisacodyl (Dulcolax Supp) 10 mg Q24H PRN [place] CONSTIPATION; Start 05/04/16 at 07 :30 Levetiracetam (Keppra Liquid) 1,000 mg Q12 GTB Last administered on 05/15/16at 09:43; Admin Dose 1,000 MG; Start 05/04/16 at 09:00 Multivitamins (Thera-Plus) 5 ml DAILY GTB Last administered on 05/15/16 09:44 ; Admin Dose 5 ML; Start 05/04/16 at 09:00 Miscellaneous Information 1 ea NOTE XX ; Start 05/04/16 at 09:00 Glucose (Glutose) 15 gm Q15M PRN PO DECREASED GLUCOSE; Start 05/04/16 at 09:00 Glucose (Glutose) 22.5 gm Q15M PRN PO DECREASED GLUCOSE; Start 05/04/16 at 09: 00 Dextrose (D50w Syringe) 25 ml Q15M PRN IV DECREASED GLUCOSE; Start 05/04/16 at 09:00 Dextrose (D50w Syringe) 50 ml Q15M PRN IV DECREASED GLUCOSE; Start 05/04/16 at 09:00 Glucagon (Glucagen) 1 mg Q15M PRN IM DECREASED GLUCOSE; Start 05/04/16 at 09: 00 Glucose (Glutose) 15 gm Q15M PRN BUCCAL DECREASED GLUCOSE; Start 05/04/16 at 09:00 Acetaminophen (Tylenol Liquid) 650 mg Q6H PRN GTB PAIN LEVEL 1-3 OR FEVER Last administered on 05/15/16at 09:44; Admin Dose 650 MG; Start 05/04/16 at 18:30 Metronidazole (Flagyl) 500 mg Q8 GTB Last administered on 05/15/16at 06:12; Admin Dose 500 MG; Start 05/05/16 at 14:00 Collagenase (Santyl) APPLY TO NECROTIC TISSUE DAILY TOP Last administered on at 09:45; Admin Dose 1 APPLIC; Start 05/06/16 at 16:30 Collagenase (Santyl) APPLY TO NECROTIC AREA PRN PRN TOP SOILING; Start at 16:00 Insulin Aspart (Novolog Insulin Pen) NOVOLOG *MODERATE* ALGORITHM Q6 SC Last administered on 05/15/16at 12:00; Admin Dose 4 UNIT; Start 05/09/16 at 12:00 Aspirin 81 mg 81 mg DAILY GTB Last administered on 05/15/16at 09:42; Admin Dose 81 MG; Start 05/10/16 at 09:00 Tigecycline/ Sodium Chloride (Tygacil/NS) 100 ml @ 200 mls/hr Q12 IVPB Last administered on 05/15/16 09:00; Admin Dose 200 MLS/HR; Start 05/10/16 at 06: 00 Ascorbic Acid (Vitamin C) 500 mg DAILY GTB Last administered on 05/15/16 09: 42; Admin Dose 500 MG; Start 05/10/16 at 11:00 Famotidine (Pepcid) 20 mg DAILY GTB Last administered on 05/15/16 09:42; Admin Dose 20 MG; Start 05/10/16 at 11:00 Acetaminophen/ Hydrocodone Bitart ([place] (5/325)) 1 tab Q6H PRN GTB MODERATE PAIN LEVEL 4-6; Start 05/10/16 at 13:30 Magnesium Hydroxide (Milk Of Mag) 30 ml DAILY PRN GTB CONSTIPATION; Start at 10:00 Voriconazole (Vfend) 200 mg BID GTB Last administered on 05/15/16 09:44; Admin Dose 200 MG; Start 05/10/16 at 11:00 Metoclopramide HCl 10 mg 10 mg Q6 GTB Last administered on 05/15/16 06:12; Admin Dose 10 MG; Start 05/10/16 at 18:00 Potassium Chloride/Dextrose (KCl/D5W) 1,015 ml @ 100 mls/hr Q10H9M IV Last administered on 05/15/16 04:17; Admin Dose 100 MLS/HR; Start 05/13/16 at 17: 30 Hydralazine HCl (Apresoline) 25 mg Q8H GTB Last administered on 05/15/16 04: 17; Admin Dose 25 MG; Start 05/14/16 at 20:00 Insulin Glargine (Lantus) 14 unit QPM SC Last administered on 05/14/16 22:53 ; Admin Dose 14 UNIT; Start 05/14/16 at 21:00 TAMMY NUÑEZ MD May 15, 2016 13:16
[2016-05-15] MEDS ORDERED: CITRIC ACID/NA CITRATE 30 ML CUP PO ONE (14:30)
[2016-05-15] MEDS: ATORVASTATIN 20 MG TAB GTB SCH (21:13)
[2016-05-15] MEDS: CITRIC ACID/NA CITRATE 30 ML CUP PO SCH (21:20)
[2016-05-15] MEDS: INSULIN GLARGINE [LANtus] 3 ML PEN SC SCH (21:24)
--- NOTE | 2016-05-15 21:48 | CONS ---
Date/Time of Note Date/Time of Note DATE: 05/15/16 TIME: 21:46 Consult Date/Type/Reason Admit Date/Time May 04, 2016 at 05:51 Type of Consultation: ID Ordering Provider: AMY HANKINS MD Subjective no events, lying comfortably in bed, no fevers Objective Vital Signs Date Time Temp Pulse Resp B/P Pulse Ox O2 Delivery O2 Flow Rate FiO2 05/15/16 20:53 83 05/15/16 20:36 98.7 20 80/42 99 05/15/16 19:10 30 05/13/16 12:00 Mechanical Ventilator Intake and Output 05/14/16 05/14/16 05/15/16 15:00 23:00 07:00 Intake Total 100 ml 1510 ml 710 ml Output Total 1750 ml 1100 ml Balance 100 ml -240 ml -390 ml Results/Medications Result Diagram: 05/15/16 0544 05/15/16 0544 Results 24 hrs Laboratory Tests Test 05/14/16 22:29 05/15/16 00:49 05/15/16 05:44 05/15/16 06:19 Bedside Glucose 205 212 205 Anion Gap 16 Basophils # 0.1 Basophils % 0.4 Blood Morphology Comment Blood Urea Nitrogen 36 H Calcium Level 7.2 L Carbon Dioxide Level 19 L Chloride Level 114 H Creatinine 1.04 H Eosinophils # 0.5 Eosinophils % 3.8 Glucose Level 185 Hematocrit 25.1 L Hemoglobin 8.4 L Lymphocytes # 2.3 Lymphocytes % 18.9 Mean Corpuscular Hemoglobin 30.3 Mean Corpuscular Hemoglobin Concent 33.3 Mean Corpuscular Volume 90.9 Mean Platelet Volume 7.7 Monocytes # 0.5 Monocytes % 3.8 Neutrophils # 9.1 H Neutrophils % 73.1 Nucleated Red Blood Cells # 0.0 Nucleated Red Blood Cells % 0.0 Platelet Count 307 Potassium Level 4.5 Red Blood Count 2.76 L Red Cell Distribution Width 16.1 H Sodium Level 144 White Blood Count 12.4 H Test 05/15/16 12:38 05/15/16 17:00 05/15/16 21:11 Bedside Glucose 205 174 164 Medications Current Medications Morphine Sulfate (morphine) 2 mg Q4H PRN IV SEVERE PAIN LEVEL 7-10 Last administered on 05/07/16at 18:26; Admin Dose 2 MG; Start 05/04/16 at 07:30 Docusate Sodium (Colace) 100 mg Q12H PRN PO CONSTIPATION; Start 05/04/16 at 07 :30 Ondansetron HCl (Zofran Inj) 4 mg Q6H PRN IV NAUSEA AND/OR VOMITING Last administered on 05/05/16at 17:56; Admin Dose 4 MG; Start 05/04/16 at 07:30 Lorazepam (Ativan) 0.5 mg Q6H PRN IV ANXIETY Last administered on 05/06/16at 23 :58; Admin Dose 0.5 MG; Start 05/04/16 at 07:30 Hydralazine HCl (Apresoline) 10 mg Q6H PRN IV ELEVATED BLOOD PRESSURE; Start 05/04/16 at 07:30 Nitroglycerin (Nitroglycerin (Sl Tab) 0.4 Mg) 1 tab Q5M PRN SL ANGINA; Start 05/04/16 at 07:30 Acetaminophen (Tylenol Supp) 650 mg Q4 PRN [place] PAIN OR TEMP ABOVE 38C; Start at 07:30 Atorvastatin Calcium (Lipitor) 20 mg QHS GTB Last administered on 05/15/16at 21 :13; Admin Dose 20 MG; Start 05/04/16 at 21:00 Bisacodyl (Dulcolax Supp) 10 mg Q24H PRN [place] CONSTIPATION; Start 05/04/16 at 07 :30 Levetiracetam (Keppra Liquid) 1,000 mg Q12 GTB Last administered on 05/15/16at 21:13; Admin Dose 1,000 MG; Start 05/04/16 at 09:00 Multivitamins (Thera-Plus) 5 ml DAILY GTB Last administered on 05/15/16at 09:44 ; Admin Dose 5 ML; Start 05/04/16 at 09:00 Miscellaneous Information 1 ea NOTE XX ; Start 05/04/16 at 09:00 Glucose (Glutose) 15 gm Q15M PRN PO DECREASED GLUCOSE; Start 05/04/16 at 09:00 Glucose (Glutose) 22.5 gm Q15M PRN PO DECREASED GLUCOSE; Start 05/04/16 at 09: 00 Dextrose (D50w Syringe) 25 ml Q15M PRN IV DECREASED GLUCOSE; Start 05/04/16 at 09:00 Dextrose (D50w Syringe) 50 ml Q15M PRN IV DECREASED GLUCOSE; Start 05/04/16 at 09:00 Glucagon (Glucagen) 1 mg Q15M PRN IM DECREASED GLUCOSE; Start 05/04/16 at 09: 00 Glucose (Glutose) 15 gm Q15M PRN BUCCAL DECREASED GLUCOSE; Start 05/04/16 at 09:00 Acetaminophen (Tylenol Liquid) 650 mg Q6H PRN GTB PAIN LEVEL 1-3 OR FEVER Last administered on 05/15/16 09:44; Admin Dose 650 MG; Start 05/04/16 at 18:30 Metronidazole (Flagyl) 500 mg Q8 GTB Last administered on 05/15/16 21:28; Admin Dose 500 MG; Start 05/05/16 at 14:00 Collagenase (Santyl) APPLY TO NECROTIC TISSUE DAILY TOP Last administered on 09:45; Admin Dose 1 APPLIC; Start 05/06/16 at 16:30 Collagenase (Santyl) APPLY TO NECROTIC AREA PRN PRN TOP SOILING; Start at 16:00 Insulin Aspart (Novolog Insulin Pen) NOVOLOG *MODERATE* ALGORITHM Q6 SC Last administered on 05/15/16 17:52; Admin Dose 2 UNIT; Start 05/09/16 at 12:00 Aspirin 81 mg 81 mg DAILY GTB Last administered on 05/15/16 09:42; Admin Dose 81 MG; Start 05/10/16 at 09:00 Tigecycline/ Sodium Chloride (Tygacil/NS) 100 ml @ 200 mls/hr Q12 IVPB Last administered on 05/15/16 21:20; Admin Dose 200 MLS/HR; Start 05/10/16 at 06: 00 Ascorbic Acid (Vitamin C) 500 mg DAILY GTB Last administered on 05/15/16 09: 42; Admin Dose 500 MG; Start 05/10/16 at 11:00 Famotidine (Pepcid) 20 mg DAILY GTB Last administered on 05/15/16 09:42; Admin Dose 20 MG; Start 05/10/16 at 11:00 Acetaminophen/ Hydrocodone Bitart ([place] (5/325)) 1 tab Q6H PRN GTB MODERATE PAIN LEVEL 4-6; Start 05/10/16 at 13:30 Magnesium Hydroxide (Milk Of Mag) 30 ml DAILY PRN GTB CONSTIPATION; Start at 10:00 Voriconazole (Vfend) 200 mg BID GTB Last administered on 05/15/16at 21:13; Admin Dose 200 MG; Start 05/10/16 at 11:00 Metoclopramide HCl 10 mg 10 mg Q6 GTB Last administered on 05/15/16at 17:55; Admin Dose 10 MG; Start 05/10/16 at 18:00 Potassium Chloride/Dextrose (KCl/D5W) 1,015 ml @ 100 mls/hr Q10H9M IV Last administered on 05/15/16at 21:13; Admin Dose 100 MLS/HR; Start 05/13/16 at 17: 30 Hydralazine HCl (Apresoline) 25 mg Q8H GTB Last administered on 05/15/16 04: 17; Admin Dose 25 MG; Start 05/14/16 at 20:00 Insulin Glargine (Lantus) 14 unit QPM SC Last administered on 05/15/16at 21:24 ; Admin Dose 14 UNIT; Start 05/14/16 at 21:00 Citric Acid/ Sodium Citrate (Bicitra) 30 ml TID PO Last administered on 21:20; Admin Dose 30 ML; Start 05/15/16 at 21:00 Assessment/Plan Chief Complaint/Hosp Course INDWELLINGS: Trach, PEG, Reynolds, KILN FIREMAN shunt. ANTIMICROBIALS: Tygacil, Flagyl, Voriconazole. PHYSICAL EXAMINATION: GENERAL: This is a chronically ill-appearing, middle-aged woman who is obtunded in no distress. HEENT: Head atraumatic, normocephalic. Sclerae anicteric. Buccal mucosa dry. NECK: Supple. Tracheostomy present. CHEST: Rise symmetrical. Breath sounds diminished at the bases. HEART: S1, S2. ABDOMEN: Soft, bowel tones present. EXTREMITIES: Without cyanosis. ASSESSMENT: 1. S/p sepsis with shock. 2. Clostridium difficile colitis. 3. Unstageable sacral decubitus, possible osteomyelitis with a history of multiple debridements. 4. 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 5. Seizure disorder. 6. Chronic encephalopathy. 7. Urinary tract infection===> MDRO, poss colonization. PLAN: Clinically unchanged, no fevers, renal f-n improving, continue abx, local wound care, pending placement. Repeat stool neg for C dif DW staff Problems: DUTCH STEELE NP May 15, 2016 21:48
[2016-05-16] VITALS (22 sets, daily range): BP systolic 103–124; BP diastolic 61–76; PULSE 85–97; RESP 15–29
[2016-05-16] MEDS: METOCLOPRAMIDE (1 MG/ML) 10 ML CUP GTB SCH ×4 (00:49→18:10)
[2016-05-16] MEDS: metroNIDAZOLE 500 MG TAB GTB SCH ×3 (05:56→21:33)
[2016-05-16] MEDS: INSULIN ASPART [NOVOLOG] 3 ML PEN SC SCH ×4 (05:56→18:12)
[2016-05-16] MEDS: POTASSIUM CHLORIDE 30 MEQ in DEXTROSE 5% 1,000 ML IV SCH ×2 (05:57→15:56)
[2016-05-16] MEDS: ASPIRIN 81 MG TAB GTB SCH (09:00)
[2016-05-16] MEDS: TIGECYCLINE 50 MG in SOD CHLORIDE 0.9% 100 ML IVPB SCH ×2 (09:00→21:30)
--- NOTE | 2016-05-16 09:21 | PN ---
Date/Time of Note Date/Time of Note DATE: 05/16/16 TIME: 09:19 Assessment/Plan VTE Prophylaxis VTE Prophylaxis Intervention: SCD's Lines/Catheters IV Catheter Type (from Nrsg): Peripheral IV Urinary Cath still in place: Yes Reason Cath still needed: other (indicate) Assessment/Plan Chief Complaint/Hosp Course ASSESSMENT AND PLAN: 1. Sepsis, likely secondary to urinary tract infection versus sacral decubitus. The patient has been started on Tygacil , flagyl, and V.fend as per ID recommendations . Follow up infectious disease recommendations. We'll continue monitor patient blood pressure, off pressors at this time 2. Acute on chronic respiratory failure, Ventilator-dependent respiratory failure, status post trach. Pulmonology has been consulted. 3. Acute renal insufficiency, improving status post IVF, likely secondary to sepsis versus dehydration. nephrology consulted. Continue IV fluids. 4. Diabetes mellitus. Continue sliding scale and Lantus. 5. History of cerebrovascular accident. No acute issues at this time. Patient is bed bound and a phasic 6. Dyslipidemia. Continue Lipitor. 7. Electrolyte imbalance , nephrology following 8. Essential Hypertension, continue to monitor restart blood pressure medications cautiously 9. C. difficile toxin, continue Flagyl 10. Hypokalemia, repleted 11. Hypernatremia, continue DW also start free water with PEG tube feeding every 8 hours, follow up electrolytes in a.m. We will continue monitor patient closely for recommendation management treatment as per clinical course Condition guarded Continue to monitor in telemetry floor Plan to discharge to nursing home facility when bed is available Discharge/transfer antibiotics as per infectious disease, Problems: Subjective 24 Hr Interval Summary Free Text/Dictation No acute changes Tolerating PEG tube feeding Exam/Review of Systems Vital Signs Vitals Vital Signs Date Time Temp Pulse Resp B/P Pulse Ox O2 Delivery O2 Flow Rate FiO2 05/16/16 08:41 93 05/16/16 07:34 99.5 20 119/69 100 05/16/16 07:00 30 05/13/16 12:00 Mechanical Ventilator Intake and Output 05/15/16 05/15/16 05/16/16 15:00 23:00 07:00 Intake Total 100 ml 300 ml Output Total 1725 ml 1050 ml Balance -1625 ml -750 ml Exam General: The patient is a phasic, on vent via trach, does not respond to any pain or verbal stimuli HEENT: Atraumatic, normocephalic. The pupils are equal Neck: Supple , trach in place Chest: Normal Lungs: Decreased breath sounds bilateral lower lung field, positive crackles Heart: Normal S1-S2, Regular rhythm and rate. Abdomen: Soft , nontender, nondistended , bowel sounds are present. PEG tube in place Extremities: Flaccid, + 2 edema no cyanosis Neurologic: No meaningful neurologic examination findings Skin: Stage IV sacral decubitus Results Result Diagram: 05/15/1644 05/15/16 0544 Results 24 hrs Laboratory Tests Test 05/15/16 12:38 05/15/16 17:00 05/15/16 21:11 05/16/16 00:44 Bedside Glucose 205 174 164 154 Test 05/16/16 05:55 Bedside Glucose 126 Medications Medications Current Medications Morphine Sulfate (morphine) 2 mg Q4H PRN IV SEVERE PAIN LEVEL 7-10 Last administered on 05/07/16at 18:26; Admin Dose 2 MG; Start 05/04/16 at 07:30 Docusate Sodium (Colace) 100 mg Q12H PRN PO CONSTIPATION; Start 05/04/16 at 07 :30 Ondansetron HCl (Zofran Inj) 4 mg Q6H PRN IV NAUSEA AND/OR VOMITING Last administered on 05/05/16at 17:56; Admin Dose 4 MG; Start 05/04/16 at 07:30 Lorazepam (Ativan) 0.5 mg Q6H PRN IV ANXIETY Last administered on 05/06/16at 23 :58; Admin Dose 0.5 MG; Start 05/04/16 at 07:30 Hydralazine HCl (Apresoline) 10 mg Q6H PRN IV ELEVATED BLOOD PRESSURE; Start 05/04/16 at 07:30 Nitroglycerin (Nitroglycerin (Sl Tab) 0.4 Mg) 1 tab Q5M PRN SL ANGINA; Start 05/04/16 at 07:30 Acetaminophen (Tylenol Supp) 650 mg Q4 PRN [place] PAIN OR TEMP ABOVE 38C; Start at 07:30 Atorvastatin Calcium (Lipitor) 20 mg QHS GTB Last administered on 05/15/16at 21 :13; Admin Dose 20 MG; Start 05/04/16 at 21:00 Bisacodyl (Dulcolax Supp) 10 mg Q24H PRN [place] CONSTIPATION; Start 05/04/16 at 07 :30 Levetiracetam (Keppra Liquid) 1,000 mg Q12 GTB Last administered on 05/15/16at 21:13; Admin Dose 1,000 MG; Start 05/04/16 at 09:00 Multivitamins (Thera-Plus) 5 ml DAILY GTB Last administered on 05/15/16at 09:44 ; Admin Dose 5 ML; Start 05/04/16 at 09:00 Miscellaneous Information 1 ea NOTE XX ; Start 05/04/16 at 09:00 Glucose (Glutose) 15 gm Q15M PRN PO DECREASED GLUCOSE; Start 05/04/16 at 09:00 Glucose (Glutose) 22.5 gm Q15M PRN PO DECREASED GLUCOSE; Start 05/04/16 at 09: 00 Dextrose (D50w Syringe) 25 ml Q15M PRN IV DECREASED GLUCOSE; Start 05/04/16 at 09:00 Dextrose (D50w Syringe) 50 ml Q15M PRN IV DECREASED GLUCOSE; Start 05/04/16 at 09:00 Glucagon (Glucagen) 1 mg Q15M PRN IM DECREASED GLUCOSE; Start 05/04/16 at 09: 00 Glucose (Glutose) 15 gm Q15M PRN BUCCAL DECREASED GLUCOSE; Start 05/04/16 at 09:00 Acetaminophen (Tylenol Liquid) 650 mg Q6H PRN GTB PAIN LEVEL 1-3 OR FEVER Last administered on 05/15/16at 09:44; Admin Dose 650 MG; Start 05/04/16 at 18:30 Metronidazole (Flagyl) 500 mg Q8 GTB Last administered on 05/16/16at 05:56; Admin Dose 500 MG; Start 05/05/16 at 14:00 Collagenase (Santyl) APPLY TO NECROTIC TISSUE DAILY TOP Last administered on at 09:45; Admin Dose 1 APPLIC; Start 05/06/16 at 16:30 Collagenase (Santyl) APPLY TO NECROTIC AREA PRN PRN TOP SOILING; Start at 16:00 Insulin Aspart (Novolog Insulin Pen) NOVOLOG *MODERATE* ALGORITHM Q6 SC Last administered on 05/15/16at 17:52; Admin Dose 2 UNIT; Start 05/09/16 at 12:00 Aspirin 81 mg 81 mg DAILY GTB Last administered on 05/15/16 09:42; Admin Dose 81 MG; Start 05/10/16 at 09:00 Tigecycline/ Sodium Chloride (Tygacil/NS) 100 ml @ 200 mls/hr Q12 IVPB Last administered on 05/15/16 21:20; Admin Dose 200 MLS/HR; Start 05/10/16 at 06: 00 Ascorbic Acid (Vitamin C) 500 mg DAILY GTB Last administered on 05/15/16 09: 42; Admin Dose 500 MG; Start 05/10/16 at 11:00 Famotidine (Pepcid) 20 mg DAILY GTB Last administered on 05/15/16 09:42; Admin Dose 20 MG; Start 05/10/16 at 11:00 Acetaminophen/ Hydrocodone Bitart ([place] (5/325)) 1 tab Q6H PRN GTB MODERATE PAIN LEVEL 4-6; Start 05/10/16 at 13:30 Magnesium Hydroxide (Milk Of Mag) 30 ml DAILY PRN GTB CONSTIPATION; Start at 10:00 Voriconazole (Vfend) 200 mg BID GTB Last administered on 05/15/16 21:13; Admin Dose 200 MG; Start 05/10/16 at 11:00 Metoclopramide HCl 10 mg 10 mg Q6 GTB Last administered on 05/16/16 05:56; Admin Dose 10 MG; Start 05/10/16 at 18:00 Potassium Chloride/Dextrose (KCl/D5W) 1,015 ml @ 100 mls/hr Q10H9M IV Last administered on 05/16/16 05:57; Admin Dose 100 MLS/HR; Start 05/13/16 at 17: 30 Hydralazine HCl (Apresoline) 25 mg Q8H GTB Last administered on 05/15/16 04: 17; Admin Dose 25 MG; Start 05/14/16 at 20:00 Insulin Glargine (Lantus) 14 unit QPM SC Last administered on 05/15/16 21:24 ; Admin Dose 14 UNIT; Start 05/14/16 at 21:00 Citric Acid/ Sodium Citrate (Bicitra) 30 ml TID PO Last administered on 21:20; Admin Dose 30 ML; Start 05/15/16 at 21:00 AMY HANKINS MD May 16, 2016 09:21
[2016-05-16] MEDS: FAMOTIDINE 20 MG TAB GTB SCH (10:00)
[2016-05-16] MEDS: LEVETIRACETAM (100 MG/ML) 5ML CUP GTB SCH ×2 (10:00→21:28)
[2016-05-16] MEDS: CITRIC ACID/NA CITRATE 30 ML CUP PO SCH ×3 (10:01→21:31)
[2016-05-16] MEDS: VORICONAZOLE 200 MG TAB GTB SCH ×2 (10:01→21:27)
[2016-05-16] MEDS: MULTIVITAMINS 5 ML CUP GTB SCH (10:01)
[2016-05-16] MEDS: COLLAGENASE 30 GM TUBE TOP SCH (10:01)
[2016-05-16] MEDS: ASCORBIC ACID 500 MG TAB GTB SCH (10:01)
--- NOTE | 2016-05-16 11:22 | CONS ---
Date/Time of Note Date/Time of Note DATE: 05/16/16 TIME: 11:21 Assessment/Plan Assessment/Plan Additional Assessment/Plan 1. Sepsis, likely secondary to urinary tract infection versus sacral decubitus. 2. Acute on chronic respiratory failure, Ventilator-dependent respiratory failure, status post trach. Pulmonology has been consulted. 3. Acute kidney injury due to prerenal azotemia + ATN 4. Diabetes mellitus 5. History of cerebrovascular accident. 6. Dyslipidemia. Plan: Cr imrpoving, HCO3 still low- will start bicitra Expecting renal function to improve with IVF will follow up Consultation Date/Type/Reason Admit Date/Time May 04, 2016 at 05:51 Type of Consultation: NEPHROLOGY Referring Provider: AMY HANKINS MD Exam/Review of Systems Vital Signs Vitals Vital Signs Date Time Temp Pulse Resp B/P Pulse Ox O2 Delivery O2 Flow Rate FiO2 05/16/16 09:30 91 18 100 30 05/16/16 07:34 99.5 119/69 05/13/16 12:00 Mechanical Ventilator Intake and Output 05/15/16 05/15/16 05/16/16 15:00 23:00 07:00 Intake Total 100 ml 300 ml Output Total 1725 ml 1050 ml Balance -1625 ml -750 ml Exam General: The patient is a phasic, on vent via trach, does not respond to any pain or verbal stimuli Lungs: Decreased breath sounds bilateral lower lung field, positive crackles Heart: Normal S1-S2, Regular rhythm and rate. Abdomen: Soft , nontender, nondistended , bowel sounds are present. PEG tube in place Extremities: Flaccid, + 2 edema no cyanosis Skin: Stage IV sacral decubitus Results Result Diagram: 05/15/16 0544 05/15/16 0544 Results 24 hrs Laboratory Tests Test 05/15/16 12:38 05/15/16 17:00 05/15/16 21:11 05/16/16 00:44 Bedside Glucose 205 174 164 154 Test 05/16/16 05:55 Bedside Glucose 126 Medications Medications Current Medications Morphine Sulfate (morphine) 2 mg Q4H PRN IV SEVERE PAIN LEVEL 7-10 Last administered on 05/07/16at 18:26; Admin Dose 2 MG; Start 05/04/16 at 07:30 Docusate Sodium (Colace) 100 mg Q12H PRN PO CONSTIPATION; Start 05/04/16 at 07 :30 Ondansetron HCl (Zofran Inj) 4 mg Q6H PRN IV NAUSEA AND/OR VOMITING Last administered on 05/05/16at 17:56; Admin Dose 4 MG; Start 05/04/16 at 07:30 Lorazepam (Ativan) 0.5 mg Q6H PRN IV ANXIETY Last administered on 05/06/16at 23 :58; Admin Dose 0.5 MG; Start 05/04/16 at 07:30 Hydralazine HCl (Apresoline) 10 mg Q6H PRN IV ELEVATED BLOOD PRESSURE; Start 05/04/16 at 07:30 Nitroglycerin (Nitroglycerin (Sl Tab) 0.4 Mg) 1 tab Q5M PRN SL ANGINA; Start 05/04/16 at 07:30 Acetaminophen (Tylenol Supp) 650 mg Q4 PRN [place] PAIN OR TEMP ABOVE 38C; Start at 07:30 Atorvastatin Calcium (Lipitor) 20 mg QHS GTB Last administered on 05/15/16at 21 :13; Admin Dose 20 MG; Start 05/04/16 at 21:00 Bisacodyl (Dulcolax Supp) 10 mg Q24H PRN [place] CONSTIPATION; Start 05/04/16 at 07 :30 Levetiracetam (Keppra Liquid) 1,000 mg Q12 GTB Last administered on 05/16/16at 10:00; Admin Dose 1,000 MG; Start 05/04/16 at 09:00 Multivitamins (Thera-Plus) 5 ml DAILY GTB Last administered on 05/16/16at 10:01 ; Admin Dose 5 ML; Start 05/04/16 at 09:00 Miscellaneous Information 1 ea NOTE XX ; Start 05/04/16 at 09:00 Glucose (Glutose) 15 gm Q15M PRN PO DECREASED GLUCOSE; Start 05/04/16 at 09:00 Glucose (Glutose) 22.5 gm Q15M PRN PO DECREASED GLUCOSE; Start 05/04/16 at 09: 00 Dextrose (D50w Syringe) 25 ml Q15M PRN IV DECREASED GLUCOSE; Start 05/04/16 at 09:00 Dextrose (D50w Syringe) 50 ml Q15M PRN IV DECREASED GLUCOSE; Start 05/04/16 at 09:00 Glucagon (Glucagen) 1 mg Q15M PRN IM DECREASED GLUCOSE; Start 05/04/16 at 09: 00 Glucose (Glutose) 15 gm Q15M PRN BUCCAL DECREASED GLUCOSE; Start 05/04/16 at 09:00 Acetaminophen (Tylenol Liquid) 650 mg Q6H PRN GTB PAIN LEVEL 1-3 OR FEVER Last administered on 05/15/16 09:44; Admin Dose 650 MG; Start 05/04/16 at 18:30 Metronidazole (Flagyl) 500 mg Q8 GTB Last administered on 05/16/16 05:56; Admin Dose 500 MG; Start 05/05/16 at 14:00 Collagenase (Santyl) APPLY TO NECROTIC TISSUE DAILY TOP Last administered on 10:01; Admin Dose 1 APPLIC; Start 05/06/16 at 16:30 Collagenase (Santyl) APPLY TO NECROTIC AREA PRN PRN TOP SOILING; Start at 16:00 Insulin Aspart (Novolog Insulin Pen) NOVOLOG *MODERATE* ALGORITHM Q6 SC Last administered on 05/15/16at 17:52; Admin Dose 2 UNIT; Start 05/09/16 at 12:00 Aspirin 81 mg 81 mg DAILY GTB Last administered on 05/16/16 09:00; Admin Dose 81 MG; Start 05/10/16 at 09:00 Tigecycline/ Sodium Chloride (Tygacil/NS) 100 ml @ 200 mls/hr Q12 IVPB Last administered on 05/16/16at 09:00; Admin Dose 200 MLS/HR; Start 05/10/16 at 06: 00 Ascorbic Acid (Vitamin C) 500 mg DAILY GTB Last administered on 05/16/16at 10: 01; Admin Dose 500 MG; Start 05/10/16 at 11:00 Famotidine (Pepcid) 20 mg DAILY GTB Last administered on 05/16/16 10:00; Admin Dose 20 MG; Start 05/10/16 at 11:00 Acetaminophen/ Hydrocodone Bitart ([place] (5/325)) 1 tab Q6H PRN GTB MODERATE PAIN LEVEL 4-6; Start 05/10/16 at 13:30 Magnesium Hydroxide (Milk Of Mag) 30 ml DAILY PRN GTB CONSTIPATION; Start at 10:00 Voriconazole (Vfend) 200 mg BID GTB Last administered on 05/16/16 10:01; Admin Dose 200 MG; Start 05/10/16 at 11:00 Metoclopramide HCl 10 mg 10 mg Q6 GTB Last administered on 05/16/16 05:56; Admin Dose 10 MG; Start 05/10/16 at 18:00 Potassium Chloride/Dextrose (KCl/D5W) 1,015 ml @ 100 mls/hr Q10H9M IV Last administered on 05/16/16 05:57; Admin Dose 100 MLS/HR; Start 05/13/16 at 17: 30 Hydralazine HCl (Apresoline) 25 mg Q8H GTB Last administered on 05/15/16 04: 17; Admin Dose 25 MG; Start 05/14/16 at 20:00 Insulin Glargine (Lantus) 14 unit QPM SC Last administered on 05/15/16 21:24 ; Admin Dose 14 UNIT; Start 05/14/16 at 21:00 Citric Acid/ Sodium Citrate (Bicitra) 30 ml TID PO Last administered on 10:01; Admin Dose 30 ML; Start 05/15/16 at 21:00 TAMMY NUÑEZ MD May 16, 2016 11:22
--- NOTE | 2016-05-16 15:05 | CONS ---
Date/Time of Note Date/Time of Note DATE: 05/16/16 TIME: 15:04 Consult Date/Type/Reason Admit Date/Time May 04, 2016 at 05:51 Type of Consultation: ID Ordering Provider: AMY HANKINS MD Subjective no events, noncommunicative, looks comfortable, afebrile Objective Vital Signs Date Time Temp Pulse Resp B/P Pulse Ox O2 Delivery O2 Flow Rate FiO2 05/16/16 12:24 88 05/16/16 11:45 99.6 20 107/69 100 05/16/16 11:20 30 05/13/16 12:00 Mechanical Ventilator Intake and Output 05/15/16 05/15/16 05/16/16 15:00 23:00 07:00 Intake Total 100 ml 300 ml Output Total 1725 ml 1050 ml Balance -1625 ml -750 ml Results/Medications Result Diagram: 05/15/16 0544 05/15/16 0544 Results 24 hrs Laboratory Tests Test 05/15/16 17:00 05/15/16 21:11 05/16/16 00:44 05/16/16 05:55 Bedside Glucose 174 164 154 126 Test 05/16/16 11:56 Bedside Glucose 125 Medications Current Medications Morphine Sulfate (morphine) 2 mg Q4H PRN IV SEVERE PAIN LEVEL 7-10 Last administered on 05/07/16at 18:26; Admin Dose 2 MG; Start 05/04/16 at 07:30 Docusate Sodium (Colace) 100 mg Q12H PRN PO CONSTIPATION; Start 05/04/16 at 07 :30 Ondansetron HCl (Zofran Inj) 4 mg Q6H PRN IV NAUSEA AND/OR VOMITING Last administered on 05/05/16at 17:56; Admin Dose 4 MG; Start 05/04/16 at 07:30 Lorazepam (Ativan) 0.5 mg Q6H PRN IV ANXIETY Last administered on 05/06/16at 23 :58; Admin Dose 0.5 MG; Start 05/04/16 at 07:30 Hydralazine HCl (Apresoline) 10 mg Q6H PRN IV ELEVATED BLOOD PRESSURE; Start 05/04/16 at 07:30 Nitroglycerin (Nitroglycerin (Sl Tab) 0.4 Mg) 1 tab Q5M PRN SL ANGINA; Start 05/04/16 at 07:30 Acetaminophen (Tylenol Supp) 650 mg Q4 PRN [place] PAIN OR TEMP ABOVE 38C; Start at 07:30 Atorvastatin Calcium (Lipitor) 20 mg QHS GTB Last administered on 05/15/16at 21 :13; Admin Dose 20 MG; Start 05/04/16 at 21:00 Bisacodyl (Dulcolax Supp) 10 mg Q24H PRN [place] CONSTIPATION; Start 05/04/16 at 07 :30 Levetiracetam (Keppra Liquid) 1,000 mg Q12 GTB Last administered on 05/16/16at 10:00; Admin Dose 1,000 MG; Start 05/04/16 at 09:00 Multivitamins (Thera-Plus) 5 ml DAILY GTB Last administered on 05/16/16at 10:01 ; Admin Dose 5 ML; Start 05/04/16 at 09:00 Miscellaneous Information 1 ea NOTE XX ; Start 05/04/16 at 09:00 Glucose (Glutose) 15 gm Q15M PRN PO DECREASED GLUCOSE; Start 05/04/16 at 09:00 Glucose (Glutose) 22.5 gm Q15M PRN PO DECREASED GLUCOSE; Start 05/04/16 at 09: 00 Dextrose (D50w Syringe) 25 ml Q15M PRN IV DECREASED GLUCOSE; Start 05/04/16 at 09:00 Dextrose (D50w Syringe) 50 ml Q15M PRN IV DECREASED GLUCOSE; Start 05/04/16 at 09:00 Glucagon (Glucagen) 1 mg Q15M PRN IM DECREASED GLUCOSE; Start 05/04/16 at 09: 00 Glucose (Glutose) 15 gm Q15M PRN BUCCAL DECREASED GLUCOSE; Start 05/04/16 at 09:00 Acetaminophen (Tylenol Liquid) 650 mg Q6H PRN GTB PAIN LEVEL 1-3 OR FEVER Last administered on 05/15/16at 09:44; Admin Dose 650 MG; Start 05/04/16 at 18:30 Metronidazole (Flagyl) 500 mg Q8 GTB Last administered on 05/16/16at 05:56; Admin Dose 500 MG; Start 05/05/16 at 14:00 Collagenase (Santyl) APPLY TO NECROTIC TISSUE DAILY TOP Last administered on at 10:01; Admin Dose 1 APPLIC; Start 05/06/16 at 16:30 Collagenase (Santyl) APPLY TO NECROTIC AREA PRN PRN TOP SOILING; Start at 16:00 Insulin Aspart (Novolog Insulin Pen) NOVOLOG *MODERATE* ALGORITHM Q6 SC Last administered on 05/15/16at 17:52; Admin Dose 2 UNIT; Start 05/09/16 at 12:00 Aspirin 81 mg 81 mg DAILY GTB Last administered on 05/16/16 09:00; Admin Dose 81 MG; Start 05/10/16 at 09:00 Tigecycline/ Sodium Chloride (Tygacil/NS) 100 ml @ 200 mls/hr Q12 IVPB Last administered on 05/16/16 09:00; Admin Dose 200 MLS/HR; Start 05/10/16 at 06: 00 Ascorbic Acid (Vitamin C) 500 mg DAILY GTB Last administered on 05/16/16 10: 01; Admin Dose 500 MG; Start 05/10/16 at 11:00 Famotidine (Pepcid) 20 mg DAILY GTB Last administered on 05/16/16 10:00; Admin Dose 20 MG; Start 05/10/16 at 11:00 Acetaminophen/ Hydrocodone Bitart ([place] (5/325)) 1 tab Q6H PRN GTB MODERATE PAIN LEVEL 4-6; Start 05/10/16 at 13:30 Magnesium Hydroxide (Milk Of Mag) 30 ml DAILY PRN GTB CONSTIPATION; Start at 10:00 Voriconazole (Vfend) 200 mg BID GTB Last administered on 05/16/16 10:01; Admin Dose 200 MG; Start 05/10/16 at 11:00 Metoclopramide HCl 10 mg 10 mg Q6 GTB Last administered on 05/16/16at 12:48; Admin Dose 10 MG; Start 05/10/16 at 18:00 Potassium Chloride/Dextrose (KCl/D5W) 1,015 ml @ 100 mls/hr Q10H9M IV Last administered on 05/16/16at 05:57; Admin Dose 100 MLS/HR; Start 05/13/16 at 17: 30 Hydralazine HCl (Apresoline) 25 mg Q8H GTB Last administered on 05/15/16 04: 17; Admin Dose 25 MG; Start 05/14/16 at 20:00 Insulin Glargine (Lantus) 14 unit QPM SC Last administered on 05/15/16at 21:24 ; Admin Dose 14 UNIT; Start 05/14/16 at 21:00 Citric Acid/ Sodium Citrate (Bicitra) 30 ml TID PO Last administered on at 12:48; Admin Dose 30 ML; Start 05/15/16 at 21:00 Assessment/Plan Chief Complaint/Hosp Course INDWELLINGS: Trach, PEG, Reynolds, [employer] shunt. ANTIMICROBIALS: Tygacil, Flagyl, Voriconazole. PHYSICAL EXAMINATION: GENERAL: This is a chronically ill-appearing, middle-aged woman who is obtunded in no distress. HEENT: Head atraumatic, normocephalic. Sclerae anicteric. Buccal mucosa dry. NECK: Supple. Tracheostomy present. CHEST: Rise symmetrical. Breath sounds diminished at the bases. HEART: S1, S2. ABDOMEN: Soft, bowel tones present. EXTREMITIES: Without cyanosis. ASSESSMENT: 1. S/p sepsis with shock. 2. Clostridium difficile colitis. 3. Unstageable sacral decubitus, possible osteomyelitis with a history of multiple debridements. 4. 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 5. Seizure disorder. 6. Chronic encephalopathy. 7. Urinary tract infection===> MDRO, poss colonization. PLAN: Clinically unchanged, no fevers, repeat stool neg for C dif, continue abx , local wound care, pending placement. [facility] staff Problems: DUTCH STEELE NP May 16, 2016 15:05
[2016-05-16] MEDS: ATORVASTATIN 20 MG TAB GTB SCH (21:28)
[2016-05-16] MEDS: INSULIN GLARGINE [LANtus] 3 ML PEN SC SCH (21:35)
[2016-05-17] VITALS (25 sets, daily range): BP systolic 99–141; BP diastolic 45–69; PULSE 69–96; RESP 15–25
[2016-05-17] MEDS: METOCLOPRAMIDE (1 MG/ML) 10 ML CUP GTB SCH ×5 (01:04→23:55)
[2016-05-17] MEDS: POTASSIUM CHLORIDE 30 MEQ in DEXTROSE 5% 1,000 ML IV SCH ×4 (02:56→23:00)
[2016-05-17] MEDS: metroNIDAZOLE 500 MG TAB GTB SCH ×3 (05:18→23:13)
[2016-05-17] MEDS: INSULIN ASPART [NOVOLOG] 3 ML PEN SC SCH ×4 (05:22→17:20)
[2016-05-17 07:14] LABS: BASOPHILS % 0.3 % (0.0-2.0); EOSINOPHILS # 0.4 10^3/ul (0.0-0.5); HEMATOCRIT 25.2 % (37.0-47.0); HEMOGLOBIN 8.5 g/dl (12.0-16.0); LYMPHOCYTES # 2.1 10^3/ul (0.8-2.9); LYMPHOCYTES % 15.7 % (15.0-51.0); MEAN CORPUSCULAR HEMOGLOBIN 30.6 pg (29.0-33.0); MEAN CORPUSCULAR HGB CONC 33.7 g/dl (32.0-37.0); MEAN CORPUSCULAR VOLUME 90.8 fl (82.0-101.0); MEAN PLATELET VOLUME 7.9 fl (7.4-10.4); MONOCYTE # 0.7 10^3/ul (0.3-0.9); MONOCYTES % 4.9 % (0.0-11.0); NEUTROPHIL # 10.2 10^3/ul (1.6-7.5); NEUTROPHILS % 76.1 % (39.0-77.0); PLATELET COUNT 318 10^3/UL (140-440); RED BLOOD COUNT 2.77 10^6/ul (4.20-5.40); RED CELL DISTRIBUTION WIDTH 16.1 % (11.5-14.5); UNCORRECTED WBC 13.4 10^3/ul (4.8-10.8); WHITE BLOOD COUNT 13.4 10^3/ul (4.8-10.8)
[2016-05-17 07:15] LABS: CONDITION 1; LH ANALYZER COMMENTS 1
[2016-05-17 07:23] LABS: POTASSIUM 5.1 mmol/L (3.5-5.1)
[2016-05-17 07:26] LABS: CREATININE 0.94 mg/dl (0.44-1.00)
[2016-05-17 07:27] LABS: CALCIUM 7.3 mg/dl (8.4-10.2)
[2016-05-17] MEDS: ASPIRIN 81 MG TAB GTB SCH (08:37)
[2016-05-17] MEDS: FAMOTIDINE 20 MG TAB GTB SCH (08:37)
[2016-05-17] MEDS: LEVETIRACETAM (100 MG/ML) 5ML CUP GTB SCH ×2 (08:37→21:49)
[2016-05-17] MEDS: TIGECYCLINE 50 MG in SOD CHLORIDE 0.9% 100 ML IVPB SCH ×2 (08:38→21:49)
[2016-05-17] MEDS: VORICONAZOLE 200 MG TAB GTB SCH ×2 (08:38→21:49)
[2016-05-17] MEDS: ASCORBIC ACID 500 MG TAB GTB SCH (08:38)
[2016-05-17] MEDS: MULTIVITAMINS 5 ML CUP GTB SCH (08:38)
[2016-05-17] MEDS: CITRIC ACID/NA CITRATE 30 ML CUP PO SCH ×3 (08:38→21:49)
[2016-05-17] MEDS: COLLAGENASE 30 GM TUBE TOP SCH (08:39)
--- NOTE | 2016-05-17 09:25 | PN ---
Date/Time of Note Date/Time of Note DATE: 05/17/16 TIME: 09:19 Assessment/Plan VTE Prophylaxis VTE Prophylaxis Intervention: SCD's Lines/Catheters IV Catheter Type (from Nrs): Peripheral IV Urinary Cath still in place: Yes Reason Cath still needed: other (indicate) Assessment/Plan Chief Complaint/Hosp Course ASSESSMENT AND PLAN: 1. Sepsis, likely secondary to urinary tract infection versus sacral decubitus. The patient has been started on Tygacil , flagyl, and V.fend as per ID recommendations . Follow up infectious disease recommendations. We'll continue monitor patient blood pressure, off pressors at this time 2. Ventilator-dependent respiratory failure, status post trach. Pulmonology has been consulted. 3. Acute renal insufficiency, improving status post IVF, likely secondary to sepsis versus dehydration. nephrology consulted. Continue IV fluids. 4. Diabetes mellitus. Continue sliding scale and Lantus. 5. History of cerebrovascular accident. No acute issues at this time. Patient is bed bound and a phasic Unstageable sacral decubitus, possible osteomyelitis with a history of multiple debridements. 6. 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 7. Seizure disorder. 8. Chronic encephalopathy. 9. Urinary tract infection===> MDRO, poss colonization. 10. Essential Hypertension, continue to monitor restart blood pressure medications cautiously 11. C. difficile toxin, continue Flagyl 12. Hypokalemia, repleted 13. Hypernatremia, continue DW also start free water with PEG tube feeding every 8 hours, follow up electrolytes in a.m. We will continue monitor patient closely for recommendation management treatment as per clinical course Condition guarded Continue to monitor in telemetry floor Plan to discharge to long-term facility when bed is available Discharge/transfer antibiotics as per infectious disease, Problems: Subjective 24 Hr Interval Summary Free Text/Dictation no acute events, noncommunicative, looks comfortable, afebrile Exam/Review of Systems Vital Signs Vitals Vital Signs Date Time Temp Pulse Resp B/P Pulse Ox O2 Delivery O2 Flow Rate FiO2 05/17/16 07:48 99.0 90 17 108/58 100 05/17/16 05:26 30 05/13/16 12:00 Mechanical Ventilator Intake and Output 05/16/16 05/16/16 05/17/16 15:00 23:00 07:00 Intake Total 1000 ml 1020 ml 1100 ml Output Total 1050 ml 1150 ml Balance 1000 ml -30 ml -50 ml Exam General: The patient is a phasic, on vent via trach, does not respond to any pain or verbal stimuli HEENT: Atraumatic, normocephalic. The pupils are equal Neck: Supple , trach in place Chest: Normal Lungs: Decreased breath sounds bilateral lower lung field, positive crackles Heart: Normal S1-S2, Regular rhythm and rate. Abdomen: Soft , nontender, nondistended , bowel sounds are present. PEG tube in place Extremities: Flaccid, + 2 edema no cyanosis Neurologic: No meaningful neurologic examination findings Skin: Stage IV sacral decubitus Results Result Diagram: 05/17/16 0600 05/17/16 0600 Results 24 hrs Laboratory Tests Test 05/16/16 11:56 05/16/16 18:09 05/16/16 21:32 05/17/16 01:01 Bedside Glucose 125 147 156 125 Test 05/17/16 05:21 05/17/16 06:00 Bedside Glucose 124 Anion Gap 13 Basophils # 0.0 Basophils % 0.3 Blood Morphology Comment Blood Urea Nitrogen 26 H Calcium Level 7.3 L Carbon Dioxide Level 17 L Chloride Level 111 H Creatinine 0.94 Eosinophils # 0.4 Eosinophils % 3.0 Glucose Level 101 Hematocrit 25.2 L Hemoglobin 8.5 L Lymphocytes # 2.1 Lymphocytes % 15.7 Mean Corpuscular Hemoglobin 30.6 Mean Corpuscular Hemoglobin Concent 33.7 Mean Corpuscular Volume 90.8 Mean Platelet Volume 7.9 Monocytes # 0.7 Monocytes % 4.9 Neutrophils # 10.2 H Neutrophils % 76.1 Nucleated Red Blood Cells # 0.0 Nucleated Red Blood Cells % 0.0 Platelet Count 318 Potassium Level 5.1 Red Blood Count 2.77 L Red Cell Distribution Width 16.1 H Sodium Level 136 White Blood Count 13.4 H Medications Medications Current Medications Morphine Sulfate (morphine) 2 mg Q4H PRN IV SEVERE PAIN LEVEL 7-10 Last administered on 05/07/16at 18:26; Admin Dose 2 MG; Start 05/04/16 at 07:30 Docusate Sodium (Colace) 100 mg Q12H PRN PO CONSTIPATION; Start 05/04/16 at 07 :30 Ondansetron HCl (Zofran Inj) 4 mg Q6H PRN IV NAUSEA AND/OR VOMITING Last administered on 05/05/16at 17:56; Admin Dose 4 MG; Start 05/04/16 at 07:30 Lorazepam (Ativan) 0.5 mg Q6H PRN IV ANXIETY Last administered on 05/06/16at 23 :58; Admin Dose 0.5 MG; Start 05/04/16 at 07:30 Hydralazine HCl (Apresoline) 10 mg Q6H PRN IV ELEVATED BLOOD PRESSURE; Start 05/04/16 at 07:30 Nitroglycerin (Nitroglycerin (Sl Tab) 0.4 Mg) 1 tab Q5M PRN SL ANGINA; Start 05/04/16 at 07:30 Acetaminophen (Tylenol Supp) 650 mg Q4 PRN [place] PAIN OR TEMP ABOVE 38C; Start at 07:30 Atorvastatin Calcium (Lipitor) 20 mg QHS GTB Last administered on 05/16/16at 21 :28; Admin Dose 20 MG; Start 05/04/16 at 21:00 Bisacodyl (Dulcolax Supp) 10 mg Q24H PRN [place] CONSTIPATION; Start 05/04/16 at 07 :30 Levetiracetam (Keppra Liquid) 1,000 mg Q12 GTB Last administered on 05/17/16at 08:37; Admin Dose 1,000 MG; Start 05/04/16 at 09:00 Multivitamins (Thera-Plus) 5 ml DAILY GTB Last administered on 05/17/16at 08:38 ; Admin Dose 5 ML; Start 05/04/16 at 09:00 Miscellaneous Information 1 ea NOTE XX ; Start 05/04/16 at 09:00 Glucose (Glutose) 15 gm Q15M PRN PO DECREASED GLUCOSE; Start 05/04/16 at 09:00 Glucose (Glutose) 22.5 gm Q15M PRN PO DECREASED GLUCOSE; Start 05/04/16 at 09: 00 Dextrose (D50w Syringe) 25 ml Q15M PRN IV DECREASED GLUCOSE; Start 05/04/16 at 09:00 Dextrose (D50w Syringe) 50 ml Q15M PRN IV DECREASED GLUCOSE; Start 05/04/16 at 09:00 Glucagon (Glucagen) 1 mg Q15M PRN IM DECREASED GLUCOSE; Start 05/04/16 at 09: 00 Glucose (Glutose) 15 gm Q15M PRN BUCCAL DECREASED GLUCOSE; Start 05/04/16 at 09:00 Acetaminophen (Tylenol Liquid) 650 mg Q6H PRN GTB PAIN LEVEL 1-3 OR FEVER Last administered on 05/15/16at 09:44; Admin Dose 650 MG; Start 05/04/16 at 18:30 Metronidazole (Flagyl) 500 mg Q8 GTB Last administered on 05/17/16at 05:18; Admin Dose 500 MG; Start 05/05/16 at 14:00 Collagenase (Santyl) APPLY TO NECROTIC TISSUE DAILY TOP Last administered on at 08:39; Admin Dose 1 APPLIC; Start 05/06/16 at 16:30 Collagenase (Santyl) APPLY TO NECROTIC AREA PRN PRN TOP SOILING; Start at 16:00 Insulin Aspart (Novolog Insulin Pen) NOVOLOG *MODERATE* ALGORITHM Q6 SC Last administered on 05/16/16at 18:12; Admin Dose 2 UNIT; Start 05/09/16 at 12:00 Aspirin 81 mg 81 mg DAILY GTB Last administered on 05/17/16at 08:37; Admin Dose 81 MG; Start 05/10/16 at 09:00 Tigecycline/ Sodium Chloride (Tygacil/NS) 100 ml @ 200 mls/hr Q12 IVPB Last administered on 05/17/16at 08:38; Admin Dose 200 MLS/HR; Start 05/10/16 at 06: 00 Ascorbic Acid (Vitamin C) 500 mg DAILY GTB Last administered on 05/17/16at 08: 38; Admin Dose 500 MG; Start 05/10/16 at 11:00 Famotidine (Pepcid) 20 mg DAILY GTB Last administered on 05/17/16at 08:37; Admin Dose 20 MG; Start 05/10/16 at 11:00 Acetaminophen/ Hydrocodone Bitart ([place] (5/325)) 1 tab Q6H PRN GTB MODERATE PAIN LEVEL 4-6; Start 05/10/16 at 13:30 Magnesium Hydroxide (Milk Of Mag) 30 ml DAILY PRN GTB CONSTIPATION; Start at 10:00 Voriconazole (Vfend) 200 mg BID GTB Last administered on 05/17/16at 08:38; Admin Dose 200 MG; Start 05/10/16 at 11:00 Metoclopramide HCl 10 mg 10 mg Q6 GTB Last administered on 05/17/16at 05:18; Admin Dose 10 MG; Start 05/10/16 at 18:00 Potassium Chloride/Dextrose (KCl/D5W) 1,015 ml @ 100 mls/hr Q10H9M IV Last administered on 05/17/16at 02:56; Admin Dose 100 MLS/HR; Start 05/13/16 at 17: 30 Hydralazine HCl (Apresoline) 25 mg Q8H GTB Last administered on 05/17/16at 04: 40; Admin Dose 25 MG; Start 05/14/16 at 20:00 Insulin Glargine (Lantus) 14 unit QPM SC Last administered on 05/16/16at 21:35 ; Admin Dose 14 UNIT; Start 05/14/16 at 21:00 Citric Acid/ Sodium Citrate (Bicitra) 30 ml TID PO Last administered on at 08:38; Admin Dose 30 ML; Start 05/15/16 at 21:00 AMY HANKINS MD May 17, 2016 09:25
--- NOTE | 2016-05-17 15:30 | CONS ---
Date/Time of Note Date/Time of Note DATE: 05/17/16 TIME: 15:29 Consult Date/Type/Reason Admit Date/Time May 04, 2016 at 05:51 Type of Consultation: ID Ordering Provider: AMY HANKINS MD Subjective no acute changes, no fevers, nad Objective Vital Signs Date Time Temp Pulse Resp B/P Pulse Ox O2 Delivery O2 Flow Rate FiO2 05/17/16 13:05 94 17 100 30 05/17/16 11:37 98.2 107/59 05/13/16 12:00 Mechanical Ventilator Intake and Output 05/16/16 05/16/16 05/17/16 15:00 23:00 07:00 Intake Total 1000 ml 1020 ml 1100 ml Output Total 1050 ml 1150 ml Balance 1000 ml -30 ml -50 ml Results/Medications Result Diagram: 05/17/16 0600 05/17/16 0600 Results 24 hrs Laboratory Tests Test 05/16/16 18:09 05/16/16 21:32 05/17/16 01:01 05/17/16 05:21 Bedside Glucose 147 156 125 124 Test 05/17/16 06:00 05/17/16 13:02 Anion Gap 13 Basophils # 0.0 Basophils % 0.3 Blood Morphology Comment Blood Urea Nitrogen 26 H Calcium Level 7.3 L Carbon Dioxide Level 17 L Chloride Level 111 H Creatinine 0.94 Eosinophils # 0.4 Eosinophils % 3.0 Glucose Level 101 Hematocrit 25.2 L Hemoglobin 8.5 L Lymphocytes # 2.1 Lymphocytes % 15.7 Mean Corpuscular Hemoglobin 30.6 Mean Corpuscular Hemoglobin Concent 33.7 Mean Corpuscular Volume 90.8 Mean Platelet Volume 7.9 Monocytes # 0.7 Monocytes % 4.9 Neutrophils # 10.2 H Neutrophils % 76.1 Nucleated Red Blood Cells # 0.0 Nucleated Red Blood Cells % 0.0 Platelet Count 318 Potassium Level 5.1 Red Blood Count 2.77 L Red Cell Distribution Width 16.1 H Sodium Level 136 White Blood Count 13.4 H Bedside Glucose 160 Medications Current Medications Morphine Sulfate (morphine) 2 mg Q4H PRN IV SEVERE PAIN LEVEL 7-10 Last administered on 05/07/16at 18:26; Admin Dose 2 MG; Start 05/04/16 at 07:30 Docusate Sodium (Colace) 100 mg Q12H PRN PO CONSTIPATION; Start 05/04/16 at 07 :30 Ondansetron HCl (Zofran Inj) 4 mg Q6H PRN IV NAUSEA AND/OR VOMITING Last administered on 05/05/16at 17:56; Admin Dose 4 MG; Start 05/04/16 at 07:30 Lorazepam (Ativan) 0.5 mg Q6H PRN IV ANXIETY Last administered on 05/06/16at 23 :58; Admin Dose 0.5 MG; Start 05/04/16 at 07:30 Hydralazine HCl (Apresoline) 10 mg Q6H PRN IV ELEVATED BLOOD PRESSURE; Start 05/04/16 at 07:30 Nitroglycerin (Nitroglycerin (Sl Tab) 0.4 Mg) 1 tab Q5M PRN SL ANGINA; Start 05/04/16 at 07:30 Acetaminophen (Tylenol Supp) 650 mg Q4 PRN [place] PAIN OR TEMP ABOVE 38C; Start at 07:30 Atorvastatin Calcium (Lipitor) 20 mg QHS GTB Last administered on 05/16/16at 21 :28; Admin Dose 20 MG; Start 05/04/16 at 21:00 Bisacodyl (Dulcolax Supp) 10 mg Q24H PRN [place] CONSTIPATION; Start 05/04/16 at 07 :30 Levetiracetam (Keppra Liquid) 1,000 mg Q12 GTB Last administered on 05/17/16at 08:37; Admin Dose 1,000 MG; Start 05/04/16 at 09:00 Multivitamins (Thera-Plus) 5 ml DAILY GTB Last administered on 05/17/16at 08:38 ; Admin Dose 5 ML; Start 05/04/16 at 09:00 Miscellaneous Information 1 ea NOTE XX ; Start 05/04/16 at 09:00 Glucose (Glutose) 15 gm Q15M PRN PO DECREASED GLUCOSE; Start 05/04/16 at 09:00 Glucose (Glutose) 22.5 gm Q15M PRN PO DECREASED GLUCOSE; Start 05/04/16 at 09: 00 Dextrose (D50w Syringe) 25 ml Q15M PRN IV DECREASED GLUCOSE; Start 05/04/16 at 09:00 Dextrose (D50w Syringe) 50 ml Q15M PRN IV DECREASED GLUCOSE; Start 05/04/16 at 09:00 Glucagon (Glucagen) 1 mg Q15M PRN IM DECREASED GLUCOSE; Start 05/04/16 at 09: 00 Glucose (Glutose) 15 gm Q15M PRN BUCCAL DECREASED GLUCOSE; Start 05/04/16 at 09:00 Acetaminophen (Tylenol Liquid) 650 mg Q6H PRN GTB PAIN LEVEL 1-3 OR FEVER Last administered on 05/15/16at 09:44; Admin Dose 650 MG; Start 05/04/16 at 18:30 Metronidazole (Flagyl) 500 mg Q8 GTB Last administered on 05/17/16at 13:10; Admin Dose 500 MG; Start 05/05/16 at 14:00 Collagenase (Santyl) APPLY TO NECROTIC TISSUE DAILY TOP Last administered on at 08:39; Admin Dose 1 APPLIC; Start 05/06/16 at 16:30 Collagenase (Santyl) APPLY TO NECROTIC AREA PRN PRN TOP SOILING; Start at 16:00 Insulin Aspart (Novolog Insulin Pen) NOVOLOG *MODERATE* ALGORITHM Q6 SC Last administered on 05/17/16at 13:07; Admin Dose 2 UNIT; Start 05/09/16 at 12:00 Aspirin 81 mg 81 mg DAILY GTB Last administered on 05/17/16at 08:37; Admin Dose 81 MG; Start 05/10/16 at 09:00 Tigecycline/ Sodium Chloride (Tygacil/NS) 100 ml @ 200 mls/hr Q12 IVPB Last administered on 05/17/16at 08:38; Admin Dose 200 MLS/HR; Start 05/10/16 at 06: 00 Ascorbic Acid (Vitamin C) 500 mg DAILY GTB Last administered on 05/17/16at 08: 38; Admin Dose 500 MG; Start 05/10/16 at 11:00 Famotidine (Pepcid) 20 mg DAILY GTB Last administered on 05/17/16at 08:37; Admin Dose 20 MG; Start 05/10/16 at 11:00 Acetaminophen/ Hydrocodone Bitart ([place] (5/325)) 1 tab Q6H PRN GTB MODERATE PAIN LEVEL 4-6; Start 05/10/16 at 13:30 Magnesium Hydroxide (Milk Of Mag) 30 ml DAILY PRN GTB CONSTIPATION; Start at 10:00 Voriconazole (Vfend) 200 mg BID GTB Last administered on 05/17/16at 08:38; Admin Dose 200 MG; Start 05/10/16 at 11:00 Metoclopramide HCl 10 mg 10 mg Q6 GTB Last administered on 05/17/16at 11:56; Admin Dose 10 MG; Start 05/10/16 at 18:00 Potassium Chloride/Dextrose (KCl/D5W) 1,015 ml @ 100 mls/hr Q10H9M IV Last administered on 05/17/16at 13:11; Admin Dose 100 MLS/HR; Start 05/13/16 at 17: 30 Hydralazine HCl (Apresoline) 25 mg Q8H GTB Last administered on 05/17/16 04: 40; Admin Dose 25 MG; Start 05/14/16 at 20:00 Insulin Glargine (Lantus) 14 unit QPM SC Last administered on 05/16/16at 21:35 ; Admin Dose 14 UNIT; Start 05/14/16 at 21:00 Citric Acid/ Sodium Citrate (Bicitra) 30 ml TID PO Last administered on at 13:10; Admin Dose 30 ML; Start 05/15/16 at 21:00 Assessment/Plan Chief Complaint/Hosp Course INDWELLINGS: Trach, PEG, [facility], FINISHING PAN OPERATOR shunt. ANTIMICROBIALS: Tygacil, Flagyl, Voriconazole. PHYSICAL EXAMINATION: GENERAL: This is a chronically ill-appearing, middle-aged woman who is obtunded in no distress. HEENT: Head atraumatic, normocephalic. Sclerae anicteric. Buccal mucosa dry. NECK: Supple. Tracheostomy present. CHEST: Rise symmetrical. Breath sounds diminished at the bases. HEART: S1, S2. ABDOMEN: Soft, bowel tones present. EXTREMITIES: Without cyanosis. ASSESSMENT: 1. S/p sepsis with shock. 2. Clostridium difficile colitis. 3. Unstageable sacral decubitus, possible osteomyelitis with a history of multiple debridements. 4. 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 5. Seizure disorder. 6. Chronic encephalopathy. 7. Urinary tract infection===> MDRO, poss colonization. PLAN: Clinically unchanged, no fevers, repeat stool neg for C dif, continue abx , local wound care, pending placement. Will change [facility] staff Problems: DUTCH STEELE NP May 17, 2016 15:29
--- NOTE | 2016-05-17 15:32 | CONS ---
Date/Time of Note Date/Time of Note DATE: 05/17/16 TIME: 15:30 Assessment/Plan Assessment/Plan Chief Complaint/Hosp Course IMPRESSION: 1. Patient has [id number] kidney disease. BETTER 2. Acute renal failure due to dehydration.BETTER 3. Underlying acute tubular necrosis due to sepsis.BETTER 4. Severe sepsis. 5. hypernatremia. 6. Free water deficit.BETTER 7. RES FAILURE 8. Lactic acidosis. 9. Normal alkaline phosphatase. 10. Anemia. 11. History of tracheostomy. 12 METABOLIC ACIDOSIS PLAN CK LABS d5 w WATER G TUBE CK BMP Problems: Consultation Date/Type/Reason Admit Date/Time May 04, 2016 at 05:51 Type of Consultation: RENAL Referring Provider: AMY HANKINS MD Exam/Review of Systems Vital Signs Vitals Vital Signs Date Time Temp Pulse Resp B/P Pulse Ox O2 Delivery O2 Flow Rate FiO2 05/17/16 13:05 94 17 100 30 05/17/16 11:37 98.2 107/59 05/13/16 12:00 Mechanical Ventilator Intake and Output 05/16/16 05/16/16 05/17/16 15:00 23:00 07:00 Intake Total 1000 ml 1020 ml 1100 ml Output Total 1050 ml 1150 ml Balance 1000 ml -30 ml -50 ml Exam Respiratory: clear to auscultation Cardiovascular: regular rate and rhythm Gastrointestinal: soft Extremities: edema (+) Results Result Diagram: 05/17/16 0600 05/17/16 0600 Results 24 hrs Laboratory Tests Test 05/16/16 18:09 05/16/16 21:32 05/17/16 01:01 05/17/16 05:21 Bedside Glucose 147 156 125 124 Test 05/17/16 06:00 05/17/16 13:02 Anion Gap 13 Basophils # 0.0 Basophils % 0.3 Blood Morphology Comment Blood Urea Nitrogen 26 H Calcium Level 7.3 L Carbon Dioxide Level 17 L Chloride Level 111 H Creatinine 0.94 Eosinophils # 0.4 Eosinophils % 3.0 Glucose Level 101 Hematocrit 25.2 L Hemoglobin 8.5 L Lymphocytes # 2.1 Lymphocytes % 15.7 Mean Corpuscular Hemoglobin 30.6 Mean Corpuscular Hemoglobin Concent 33.7 Mean Corpuscular Volume 90.8 Mean Platelet Volume 7.9 Monocytes # 0.7 Monocytes % 4.9 Neutrophils # 10.2 H Neutrophils % 76.1 Nucleated Red Blood Cells # 0.0 Nucleated Red Blood Cells % 0.0 Platelet Count 318 Potassium Level 5.1 Red Blood Count 2.77 L Red Cell Distribution Width 16.1 H Sodium Level 136 White Blood Count 13.4 H Bedside Glucose 160 Medications Medications Current Medications Morphine Sulfate (morphine) 2 mg Q4H PRN IV SEVERE PAIN LEVEL 7-10 Last administered on 05/07/16 18:26; Admin Dose 2 MG; Start 05/04/16 at 07:30 Docusate Sodium (Colace) 100 mg Q12H PRN PO CONSTIPATION; Start 05/04/16 at 07 :30 Ondansetron HCl (Zofran Inj) 4 mg Q6H PRN IV NAUSEA AND/OR VOMITING Last administered on 05/05/16at 17:56; Admin Dose 4 MG; Start 05/04/16 at 07:30 Lorazepam (Ativan) 0.5 mg Q6H PRN IV ANXIETY Last administered on 05/06/16at 23 :58; Admin Dose 0.5 MG; Start 05/04/16 at 07:30 Hydralazine HCl (Apresoline) 10 mg Q6H PRN IV ELEVATED BLOOD PRESSURE; Start 05/04/16 at 07:30 Nitroglycerin (Nitroglycerin (Sl Tab) 0.4 Mg) 1 tab Q5M PRN SL ANGINA; Start 05/04/16 at 07:30 Acetaminophen (Tylenol Supp) 650 mg Q4 PRN [place] PAIN OR TEMP ABOVE 38C; Start at 07:30 Atorvastatin Calcium (Lipitor) 20 mg QHS GTB Last administered on 05/16/16at 21 :28; Admin Dose 20 MG; Start 05/04/16 at 21:00 Bisacodyl (Dulcolax Supp) 10 mg Q24H PRN [place] CONSTIPATION; Start 05/04/16 at 07 :30 Levetiracetam (Keppra Liquid) 1,000 mg Q12 GTB Last administered on 05/17/16at 08:37; Admin Dose 1,000 MG; Start 05/04/16 at 09:00 Multivitamins (Thera-Plus) 5 ml DAILY GTB Last administered on 05/17/16at 08:38 ; Admin Dose 5 ML; Start 12/13/16 at 09:00 Miscellaneous Information 1 ea NOTE XX ; Start 05/04/16 at 09:00 Glucose (Glutose) 15 gm Q15M PRN PO DECREASED GLUCOSE; Start 05/04/16 at 09:00 Glucose (Glutose) 22.5 gm Q15M PRN PO DECREASED GLUCOSE; Start 05/04/16 at 09: 00 Dextrose (D50w Syringe) 25 ml Q15M PRN IV DECREASED GLUCOSE; Start 05/04/16 at 09:00 Dextrose (D50w Syringe) 50 ml Q15M PRN IV DECREASED GLUCOSE; Start 05/04/16 at 09:00 Glucagon (Glucagen) 1 mg Q15M PRN IM DECREASED GLUCOSE; Start 05/04/16 at 09: 00 Glucose (Glutose) 15 gm Q15M PRN BUCCAL DECREASED GLUCOSE; Start 05/04/16 at 09:00 Acetaminophen (Tylenol Liquid) 650 mg Q6H PRN GTB PAIN LEVEL 1-3 OR FEVER Last administered on 05/15/16at 09:44; Admin Dose 650 MG; Start 05/04/16 at 18:30 Metronidazole (Flagyl) 500 mg Q8 GTB Last administered on 05/17/16at 13:10; Admin Dose 500 MG; Start 05/05/16 at 14:00 Collagenase (Santyl) APPLY TO NECROTIC TISSUE DAILY TOP Last administered on at 08:39; Admin Dose 1 APPLIC; Start 05/06/16 at 16:30 Collagenase (Santyl) APPLY TO NECROTIC AREA PRN PRN TOP SOILING; Start at 16:00 Insulin Aspart (Novolog Insulin Pen) NOVOLOG *MODERATE* ALGORITHM Q6 SC Last administered on 05/17/16at 13:07; Admin Dose 2 UNIT; Start 05/09/16 at 12:00 Aspirin 81 mg 81 mg DAILY GTB Last administered on 05/17/16at 08:37; Admin Dose 81 MG; Start 05/10/16 at 09:00 Tigecycline/ Sodium Chloride (Tygacil/NS) 100 ml @ 200 mls/hr Q12 IVPB Last administered on 05/17/16at 08:38; Admin Dose 200 MLS/HR; Start 05/10/16 at 06: 00 Ascorbic Acid (Vitamin C) 500 mg DAILY GTB Last administered on 05/17/16at 08: 38; Admin Dose 500 MG; Start 05/10/16 at 11:00 Famotidine (Pepcid) 20 mg DAILY GTB Last administered on 05/17/16at 08:37; Admin Dose 20 MG; Start 05/10/16 at 11:00 Acetaminophen/ Hydrocodone Bitart ([place] (5/325)) 1 tab Q6H PRN GTB MODERATE PAIN LEVEL 4-6; Start 05/10/16 at 13:30 Magnesium Hydroxide (Milk Of Mag) 30 ml DAILY PRN GTB CONSTIPATION; Start at 10:00 Voriconazole (Vfend) 200 mg BID GTB Last administered on 05/17/16at 08:38; Admin Dose 200 MG; Start 05/10/16 at 11:00 Metoclopramide HCl 10 mg 10 mg Q6 GTB Last administered on 05/17/16at 11:56; Admin Dose 10 MG; Start 05/10/16 at 18:00 Potassium Chloride/Dextrose (KCl/D5W) 1,015 ml @ 100 mls/hr Q10H9M IV Last administered on 05/17/16at 13:11; Admin Dose 100 MLS/HR; Start 05/13/16 at 17: 30 Hydralazine HCl (Apresoline) 25 mg Q8H GTB Last administered on 05/17/16at 04: 40; Admin Dose 25 MG; Start 05/14/16 at 20:00 Insulin Glargine (Lantus) 14 unit QPM SC Last administered on 05/16/16at 21:35 ; Admin Dose 14 UNIT; Start 05/14/16 at 21:00 Citric Acid/ Sodium Citrate (Bicitra) 30 ml TID PO Last administered on at 13:10; Admin Dose 30 ML; Start 05/15/16 at 21:00 AMBER LIEBERMAN MD May 17, 2016 15:31
[2016-05-17] MEDS: INSULIN GLARGINE [LANtus] 3 ML PEN SC SCH (21:00)
[2016-05-17] MEDS: ATORVASTATIN 20 MG TAB GTB SCH (21:49)
[2016-05-18] VITALS (25 sets, daily range): BP systolic 101–118; BP diastolic 57–64; PULSE 85–101; RESP 16–30
[2016-05-18] MEDS: INSULIN ASPART [NOVOLOG] 3 ML PEN SC SCH ×4 (00:08→17:14)
[2016-05-18] MEDS: POTASSIUM CHLORIDE 30 MEQ in DEXTROSE 5% 1,000 ML IV SCH (04:31)
[2016-05-18] MEDS: metroNIDAZOLE 500 MG TAB GTB SCH ×3 (05:18→21:48)
[2016-05-18] MEDS: METOCLOPRAMIDE (1 MG/ML) 10 ML CUP GTB SCH ×3 (05:18→17:14)
[2016-05-18] MEDS: MULTIVITAMINS 5 ML CUP GTB SCH (09:13)
[2016-05-18] MEDS: ASCORBIC ACID 500 MG TAB GTB SCH (09:13)
[2016-05-18] MEDS: VORICONAZOLE 200 MG TAB GTB SCH (09:13)
[2016-05-18] MEDS: FAMOTIDINE 20 MG TAB GTB SCH (09:13)
[2016-05-18] MEDS: ASPIRIN 81 MG TAB GTB SCH (09:13)
[2016-05-18] MEDS: TIGECYCLINE 50 MG in SOD CHLORIDE 0.9% 100 ML IVPB SCH ×2 (09:13→21:49)
[2016-05-18] MEDS: CITRIC ACID/NA CITRATE 30 ML CUP PO SCH ×3 (09:13→21:50)
[2016-05-18] MEDS: LEVETIRACETAM (100 MG/ML) 5ML CUP GTB SCH ×2 (09:13→21:48)
[2016-05-18] MEDS: COLLAGENASE 30 GM TUBE TOP SCH (09:14)
--- NOTE | 2016-05-18 11:26 | PN ---
Date/Time of Note Date/Time of Note DATE: 05/18/16 TIME: 11:18 Assessment/Plan VTE Prophylaxis VTE Prophylaxis Intervention: SCD's Lines/Catheters IV [facility] Type (from [facility]): Peripheral IV Urinary Cath still in place: Yes Reason Cath still needed: other (indicate) Assessment/Plan Chief Complaint/Hosp Course ASSESSMENT AND PLAN: 1. Sepsis, likely secondary to urinary tract infection versus sacral decubitus. The patient has been started on Tygacil , flagyl, and V.fend as per ID recommendations . Follow up infectious disease recommendations. We'll continue monitor patient blood pressure, off pressors at this time 2. Ventilator-dependent respiratory failure, status post trach. Pulmonology has been consulted. 3. Acute renal insufficiency, improving status post IVF, likely secondary to sepsis versus dehydration. nephrology consulted. Continue IV fluids. 4. Diabetes mellitus. Continue sliding scale and Lantus. 5. History of cerebrovascular accident. No acute issues at this time. Patient is bed bound and a phasic Unstageable sacral decubitus, possible osteomyelitis with a history of multiple debridements. 6. 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 7. Seizure disorder. 8. Chronic encephalopathy. 9. Urinary tract infection===> MDRO, urine culture KLEB PNEUMONIAE CARBAPENEMASE, follow up in infectious disease recommendations 10. Essential Hypertension, continue to monitor restart blood pressure medications cautiously 11. C. difficile toxin, repeat stool negative for C. difficile , follow-up ID recommendations to discontinue Flagyl 12. Hypokalemia, repleted 13. Hypernatremia, resolved We will continue monitor patient closely for recommendation management treatment as per clinical course Condition guarded Continue to monitor in telemetry floor Plan to discharge to detention facility when bed is available We will follow up with infectious disease physician regarding isolation status and discharge Problems: Subjective 24 Hr Interval Summary Free Text/Dictation No acute changes Patient has no meaningful neurologic examination Tolerating PEG tube feeding Exam/Review of Systems Vital Signs Vitals Vital Signs Date Time Temp Pulse Resp B/P Pulse Ox O2 Delivery O2 Flow Rate FiO2 05/18/16 08:24 91 05/18/16 08:02 100.2 18 101/57 98 05/18/16 07:50 30 Intake and Output 05/17/16 05/17/16 05/18/16 15:00 23:00 07:00 Intake Total 1020 ml 850 ml Output Total 1275 ml 1000 ml Balance -255 ml -150 ml Exam General: The patient is a phasic, on vent via trach, does not respond to any pain or verbal stimuli HEENT: Atraumatic, normocephalic. The pupils are equal Neck: Supple , trach in place Chest: Normal Lungs: Decreased breath sounds bilateral lower lung field, positive crackles Heart: Normal S1-S2, Regular rhythm and rate. Abdomen: Soft , nontender, nondistended , bowel sounds are present. PEG tube in place Extremities: Flaccid, + 2 edema no cyanosis Neurologic: No meaningful neurologic examination findings Skin: Stage IV sacral decubitus Results Result Diagram: 05/17/16 0600 05/17/16 0600 Results 24 hrs Laboratory Tests Test 05/17/16 13:02 05/17/16 17:19 05/17/16 22:13 05/17/16 23:56 Bedside Glucose 160 129 160 197 Test 05/18/16 05:21 Bedside Glucose 190 Medications Medications Current Medications Morphine Sulfate (morphine) 2 mg Q4H PRN IV SEVERE PAIN LEVEL 7-10 Last administered on 05/07/16at 18:26; Admin Dose 2 MG; Start 05/04/16 at 07:30 Docusate Sodium (Colace) 100 mg Q12H PRN PO CONSTIPATION; Start 05/04/16 at 07 :30 Ondansetron HCl (Zofran Inj) 4 mg Q6H PRN IV NAUSEA AND/OR VOMITING Last administered on 05/05/16at 17:56; Admin Dose 4 MG; Start 05/04/16 at 07:30 Lorazepam (Ativan) 0.5 mg Q6H PRN IV ANXIETY Last administered on 05/06/16at 23 :58; Admin Dose 0.5 MG; Start 05/04/16 at 07:30 Hydralazine HCl (Apresoline) 10 mg Q6H PRN IV ELEVATED BLOOD PRESSURE; Start 05/04/16 at 07:30 Nitroglycerin (Nitroglycerin (Sl Tab) 0.4 Mg) 1 tab Q5M PRN SL ANGINA; Start 05/04/16 at 07:30 Acetaminophen (Tylenol Supp) 650 mg Q4 PRN [place] PAIN OR TEMP ABOVE 38C; Start at 07:30 Atorvastatin Calcium (Lipitor) 20 mg QHS GTB Last administered on 05/17/16at 21 :49; Admin Dose 20 MG; Start 05/04/16 at 21:00 Bisacodyl (Dulcolax Supp) 10 mg Q24H PRN [place] CONSTIPATION; Start 05/04/16 at 07 :30 Levetiracetam (Keppra Liquid) 1,000 mg Q12 GTB Last administered on 05/18/16at 09:13; Admin Dose 1,000 MG; Start 05/04/16 at 09:00 Multivitamins (Thera-Plus) 5 ml DAILY GTB Last administered on 05/18/16at 09:13 ; Admin Dose 5 ML; Start 05/04/16 at 09:00 Miscellaneous Information 1 ea NOTE XX ; Start 05/04/16 at 09:00 Glucose (Glutose) 15 gm Q15M PRN PO DECREASED GLUCOSE; Start 05/04/16 at 09:00 Glucose (Glutose) 22.5 gm Q15M PRN PO DECREASED GLUCOSE; Start 05/04/16 at 09: 00 Dextrose (D50w Syringe) 25 ml Q15M PRN IV DECREASED GLUCOSE; Start 05/04/16 at 09:00 Dextrose (D50w Syringe) 50 ml Q15M PRN IV DECREASED GLUCOSE; Start 05/04/16 at 09:00 Glucagon (Glucagen) 1 mg Q15M PRN IM DECREASED GLUCOSE; Start 05/04/16 at 09: 00 Glucose (Glutose) 15 gm Q15M PRN BUCCAL DECREASED GLUCOSE; Start 05/04/16 at 09:00 Acetaminophen (Tylenol Liquid) 650 mg Q6H PRN GTB PAIN LEVEL 1-3 OR FEVER Last administered on 05/15/16at 09:44; Admin Dose 650 MG; Start 05/04/16 at 18:30 Metronidazole (Flagyl) 500 mg Q8 GTB Last administered on 05/18/16at 05:18; Admin Dose 500 MG; Start 05/05/16 at 14:00 Collagenase (Santyl) APPLY TO NECROTIC TISSUE DAILY TOP Last administered on at 09:14; Admin Dose 1 APPLIC; Start 05/06/16 at 16:30 Collagenase (Santyl) APPLY TO NECROTIC AREA PRN PRN TOP SOILING; Start at 16:00 Insulin Aspart (Novolog Insulin Pen) NOVOLOG *MODERATE* ALGORITHM Q6 SC Last administered on 05/18/16 05:38; Admin Dose 4 UNIT; Start 05/09/16 at 12:00 Aspirin 81 mg 81 mg DAILY GTB Last administered on 05/18/16 09:13; Admin Dose 81 MG; Start 05/10/16 at 09:00 Tigecycline/ Sodium Chloride (Tygacil/NS) 100 ml @ 200 mls/hr Q12 IVPB Last administered on 05/18/16 09:13; Admin Dose 200 MLS/HR; Start 05/10/16 at 06: 00 Ascorbic Acid (Vitamin C) 500 mg DAILY GTB Last administered on 05/18/16 09: 13; Admin Dose 500 MG; Start 05/10/16 at 11:00 Famotidine (Pepcid) 20 mg DAILY GTB Last administered on 05/18/16 09:13; Admin Dose 20 MG; Start 05/10/16 at 11:00 Acetaminophen/ Hydrocodone Bitart ([place] (5/325)) 1 tab Q6H PRN GTB MODERATE PAIN LEVEL 4-6; Start 05/10/16 at 13:30 Magnesium Hydroxide (Milk Of Mag) 30 ml DAILY PRN GTB CONSTIPATION; Start at 10:00 Voriconazole (Vfend) 200 mg BID GTB Last administered on 05/18/16 09:13; Admin Dose 200 MG; Start 05/10/16 at 11:00 Metoclopramide HCl 10 mg 10 mg Q6 GTB Last administered on 05/18/16 05:18; Admin Dose 10 MG; Start 05/10/16 at 18:00 Potassium Chloride/Dextrose (KCl/D5W) 1,015 ml @ 100 mls/hr Q10H9M IV Last administered on 05/18/16 04:31; Admin Dose 100 MLS/HR; Start 05/13/16 at 17: 30 Hydralazine HCl (Apresoline) 25 mg Q8H GTB Last administered on 05/17/16 21: 50; Admin Dose 25 MG; Start 05/14/16 at 20:00 Insulin Glargine (Lantus) 14 unit QPM SC Last administered on 05/17/16 21:00 ; Admin Dose 14 UNIT; Start 05/14/16 at 21:00 Citric Acid/ Sodium Citrate (Bicitra) 30 ml TID PO Last administered on at 09:13; Admin Dose 30 ML; Start 05/15/16 at 21:00 AMY HANKINS MD May 18, 2016 11:26
[2016-05-18] MEDS ORDERED: D5W-0.45 NACL + KCL 30 MEQ 1,000 ML IV SCH (12:30)
--- NOTE | 2016-05-18 15:17 | CONS ---
Date/Time of Note Date/Time of Note DATE: 05/18/16 TIME: 15:16 Consult Date/Type/Reason Admit Date/Time May 04, 2016 at 05:51 Type of Consultation: ID Ordering Provider: AMY HANKINS MD Subjective events noted, nad, low grade temps Objective Vital Signs Date Time Temp Pulse Resp B/P Pulse Ox O2 Delivery O2 Flow Rate FiO2 05/18/16 15:07 99.0 90 16 106/60 100 05/18/16 07:50 30 Intake and Output 05/17/16 05/17/16 05/18/16 15:00 23:00 07:00 Intake Total 1020 ml 850 ml Output Total 1275 ml 1000 ml Balance -255 ml -150 ml Results/Medications Result Diagram: 05/17/16 0600 05/17/16 0600 Results 24 hrs Laboratory Tests Test 05/17/16 17:19 05/17/16 22:13 05/17/16 23:56 05/18/16 05:21 Bedside Glucose 129 160 197 190 Test 05/18/16 12:32 Bedside Glucose 145 Medications Current Medications Morphine Sulfate (morphine) 2 mg Q4H PRN IV SEVERE PAIN LEVEL 7-10 Last administered on 05/07/16at 18:26; Admin Dose 2 MG; Start 05/04/16 at 07:30 Docusate Sodium (Colace) 100 mg Q12H PRN PO CONSTIPATION; Start 05/04/16 at 07 :30 Ondansetron HCl (Zofran Inj) 4 mg Q6H PRN IV NAUSEA AND/OR VOMITING Last administered on 05/05/16at 17:56; Admin Dose 4 MG; Start 05/04/16 at 07:30 Lorazepam (Ativan) 0.5 mg Q6H PRN IV ANXIETY Last administered on 05/06/16at 23 :58; Admin Dose 0.5 MG; Start 05/04/16 at 07:30 Hydralazine HCl (Apresoline) 10 mg Q6H PRN IV ELEVATED BLOOD PRESSURE; Start 05/04/16 at 07:30 Nitroglycerin (Nitroglycerin (Sl Tab) 0.4 Mg) 1 tab Q5M PRN SL ANGINA; Start 05/04/16 at 07:30 Acetaminophen (Tylenol Supp) 650 mg Q4 PRN [place] PAIN OR TEMP ABOVE 38C; Start at 07:30 Atorvastatin Calcium (Lipitor) 20 mg QHS GTB Last administered on 05/17/16at 21 :49; Admin Dose 20 MG; Start 05/04/16 at 21:00 Bisacodyl (Dulcolax Supp) 10 mg Q24H PRN [place] CONSTIPATION; Start 05/04/16 at 07 :30 Levetiracetam (Keppra Liquid) 1,000 mg Q12 GTB Last administered on 05/18/16at 09:13; Admin Dose 1,000 MG; Start 05/04/16 at 09:00 Multivitamins (Thera-Plus) 5 ml DAILY GTB Last administered on 05/18/16at 09:13 ; Admin Dose 5 ML; Start 05/04/16 at 09:00 Miscellaneous Information 1 ea NOTE XX ; Start 05/04/16 at 09:00 Glucose (Glutose) 15 gm Q15M PRN PO DECREASED GLUCOSE; Start 05/04/16 at 09:00 Glucose (Glutose) 22.5 gm Q15M PRN PO DECREASED GLUCOSE; Start 05/04/16 at 09: 00 Dextrose (D50w Syringe) 25 ml Q15M PRN IV DECREASED GLUCOSE; Start 05/04/16 at 09:00 Dextrose (D50w Syringe) 50 ml Q15M PRN IV DECREASED GLUCOSE; Start 05/04/16 at 09:00 Glucagon (Glucagen) 1 mg Q15M PRN IM DECREASED GLUCOSE; Start 05/04/16 at 09: 00 Glucose (Glutose) 15 gm Q15M PRN BUCCAL DECREASED GLUCOSE; Start 05/04/16 at 09:00 Acetaminophen (Tylenol Liquid) 650 mg Q6H PRN GTB PAIN LEVEL 1-3 OR FEVER Last administered on 05/15/16at 09:44; Admin Dose 650 MG; Start 05/04/16 at 18:30 Metronidazole (Flagyl) 500 mg Q8 GTB Last administered on 05/18/16at 13:11; Admin Dose 500 MG; Start 05/05/16 at 14:00 Collagenase (Santyl) APPLY TO NECROTIC TISSUE DAILY TOP Last administered on at 09:14; Admin Dose 1 APPLIC; Start 05/06/16 at 16:30 Collagenase (Santyl) APPLY TO NECROTIC AREA PRN PRN TOP SOILING; Start at 16:00 Insulin Aspart (Novolog Insulin Pen) NOVOLOG *MODERATE* ALGORITHM Q6 SC Last administered on 05/18/16 12:42; Admin Dose 2 UNIT; Start 05/09/16 at 12:00 Aspirin 81 mg 81 mg DAILY GTB Last administered on 05/18/16 09:13; Admin Dose 81 MG; Start 05/10/16 at 09:00 Tigecycline/ Sodium Chloride (Tygacil/NS) 100 ml @ 200 mls/hr Q12 IVPB Last administered on 05/18/16 09:13; Admin Dose 200 MLS/HR; Start 05/10/16 at 06: 00 Ascorbic Acid (Vitamin C) 500 mg DAILY GTB Last administered on 05/18/16 09: 13; Admin Dose 500 MG; Start 05/10/16 at 11:00 Famotidine (Pepcid) 20 mg DAILY GTB Last administered on 05/18/16 09:13; Admin Dose 20 MG; Start 05/10/16 at 11:00 Acetaminophen/ Hydrocodone Bitart ([place] (5/325)) 1 tab Q6H PRN GTB MODERATE PAIN LEVEL 4-6; Start 05/10/16 at 13:30 Magnesium Hydroxide (Milk Of Mag) 30 ml DAILY PRN GTB CONSTIPATION; Start at 10:00 Voriconazole (Vfend) 200 mg BID GTB Last administered on 05/18/16 09:13; Admin Dose 200 MG; Start 05/10/16 at 11:00 Metoclopramide HCl (Reglan Liq) 10 mg Q6 GTB Last administered on 05/18/16 12 :32; Admin Dose 10 MG; Start 05/10/16 at 18:00 Hydralazine HCl (Apresoline) 25 mg Q8H GTB Last administered on 05/17/16 21: 50; Admin Dose 25 MG; Start 05/14/16 at 20:00 Insulin Glargine (Lantus) 14 unit QPM SC Last administered on 05/17/16 21:00 ; Admin Dose 14 UNIT; Start 05/14/16 at 21:00 Citric Acid/ Sodium Citrate 30 ml 30 ml TID PO Last administered on 05/18/16 12:33; Admin Dose 30 ML; Start 05/15/16 at 21:00 Potassium Chloride/Dextrose/ Sod Cl (D5-1/2ns + KCl 30 Meq) 1,000 ml @ 50 mls/ hr Q20H IV Last administered on 05/18/16at 12:33; Admin Dose 50 MLS/HR; Start 05/18/16 at 12:30; Stop 05/19/16 at 08:29 Assessment/Plan Chief Complaint/Hosp Course INDWELLINGS: Trach, PEG, Reynolds, POLE SETTER shunt. ANTIMICROBIALS: Tygacil, Flagyl, Voriconazole. PHYSICAL EXAMINATION: GENERAL: This is a chronically ill-appearing, middle-aged woman who is obtunded in no distress. HEENT: Head atraumatic, normocephalic. Sclerae anicteric. Buccal mucosa dry. NECK: Supple. Tracheostomy present. CHEST: Rise symmetrical. Breath sounds diminished at the bases. HEART: S1, S2. ABDOMEN: Soft, bowel tones present. EXTREMITIES: Without cyanosis. ASSESSMENT: 1. S/p sepsis with shock. 2. Clostridium difficile colitis. 3. Unstageable sacral decubitus, possible osteomyelitis with a history of multiple debridements. 4. 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 5. Seizure disorder. 6. Chronic encephalopathy. 7. Urinary tract infection===> MDRO, poss colonization. PLAN: Clinically unchanged, will repeat urine cx, continue abx, local wound care , pending placement. Jae [facility] staff Problems: DUTCH STEELE NP May 18, 2016 15:17
--- NOTE | 2016-05-18 18:04 | CONS ---
Date/Time of Note Date/Time of Note DATE: 05/18/16 TIME: 18:03 Assessment/Plan Assessment/Plan Chief Complaint/Hosp Course IMPRESSION: 1. Patient has [id number] kidney disease. BETTER 2. Acute renal failure due to dehydration.BETTER 3. Underlying acute tubular necrosis due to sepsis.BETTER 4. Severe sepsis. 5. hypernatremia. 6. Free water deficit.BETTER 7. RES FAILURE 8. Lactic acidosis. 9. Normal alkaline phosphatase. 10. Anemia. 11. History of tracheostomy. 12 METABOLIC ACIDOSIS better PLAN CK LABS d5 w WATER G TUBE f/u lytes Problems: Consultation Date/Type/Reason Admit Date/Time May 04, 2016 at 05:51 Type of Consultation: renal Referring Provider: AMY HANKINS MD 24 HR Interval Summary Subjective hx not possible: pt non-verbal Exam/Review of Systems Vital Signs Vitals Vital Signs Date Time Temp Pulse Resp B/P Pulse Ox O2 Delivery O2 Flow Rate FiO2 05/18/16 17:00 94 30 100 30 05/18/16 15:07 99.0 106/60 Intake and Output 05/17/16 05/17/16 05/18/16 15:00 23:00 07:00 Intake Total 1020 ml 850 ml Output Total 1275 ml 1000 ml Balance -255 ml -150 ml Exam Respiratory: diminished breath sounds Cardiovascular: regular rate and rhythm Gastrointestinal: soft Extremities: No edema Results Result Diagram: 05/17/16 0600 05/17/16 0600 Results 24 hrs Laboratory Tests Test 05/17/16 22:13 05/17/16 23:56 05/18/16 05:21 05/18/16 12:32 Bedside Glucose 160 197 190 145 Test 05/18/16 17:13 Bedside Glucose 116 Medications Medications Current Medications Morphine Sulfate (morphine) 2 mg Q4H PRN IV SEVERE PAIN LEVEL 7-10 Last administered on 05/07/16at 18:26; Admin Dose 2 MG; Start 05/04/16 at 07:30 Docusate Sodium (Colace) 100 mg Q12H PRN PO CONSTIPATION; Start 05/04/16 at 07 :30 Ondansetron HCl (Zofran Inj) 4 mg Q6H PRN IV NAUSEA AND/OR VOMITING Last administered on 05/05/16at 17:56; Admin Dose 4 MG; Start 05/04/16 at 07:30 Lorazepam (Ativan) 0.5 mg Q6H PRN IV ANXIETY Last administered on 05/06/16at 23 :58; Admin Dose 0.5 MG; Start 05/04/16 at 07:30 Hydralazine HCl (Apresoline) 10 mg Q6H PRN IV ELEVATED BLOOD PRESSURE; Start 05/04/16 at 07:30 Nitroglycerin (Nitroglycerin (Sl Tab) 0.4 Mg) 1 tab Q5M PRN SL ANGINA; Start 05/04/16 at 07:30 Acetaminophen (Tylenol Supp) 650 mg Q4 PRN [place] PAIN OR TEMP ABOVE 38C; Start at 07:30 Atorvastatin Calcium (Lipitor) 20 mg QHS GTB Last administered on 05/17/16at 21 :49; Admin Dose 20 MG; Start 05/04/16 at 21:00 Bisacodyl (Dulcolax Supp) 10 mg Q24H PRN [place] CONSTIPATION; Start 05/04/16 at 07 :30 Levetiracetam (Keppra Liquid) 1,000 mg Q12 GTB Last administered on 05/18/16at 09:13; Admin Dose 1,000 MG; Start 05/04/16 at 09:00 Multivitamins (Thera-Plus) 5 ml DAILY GTB Last administered on 05/18/16at 09:13 ; Admin Dose 5 ML; Start 05/04/16 at 09:00 Miscellaneous Information 1 ea NOTE XX ; Start 05/04/16 at 09:00 Glucose (Glutose) 15 gm Q15M PRN PO DECREASED GLUCOSE; Start 05/04/16 at 09:00 Glucose (Glutose) 22.5 gm Q15M PRN PO DECREASED GLUCOSE; Start 05/04/16 at 09: 00 Dextrose (D50w Syringe) 25 ml Q15M PRN IV DECREASED GLUCOSE; Start 05/04/16 at 09:00 Dextrose (D50w Syringe) 50 ml Q15M PRN IV DECREASED GLUCOSE; Start 05/04/16 at 09:00 Glucagon (Glucagen) 1 mg Q15M PRN IM DECREASED GLUCOSE; Start 05/04/16 at 09: 00 Glucose (Glutose) 15 gm Q15M PRN BUCCAL DECREASED GLUCOSE; Start 05/04/16 at 09:00 Acetaminophen (Tylenol Liquid) 650 mg Q6H PRN GTB PAIN LEVEL 1-3 OR FEVER Last administered on 05/15/16 09:44; Admin Dose 650 MG; Start 05/04/16 at 18:30 Metronidazole (Flagyl) 500 mg Q8 GTB Last administered on 05/18/16 13:11; Admin Dose 500 MG; Start 05/05/16 at 14:00 Collagenase (Santyl) APPLY TO NECROTIC TISSUE DAILY TOP Last administered on 09:14; Admin Dose 1 APPLIC; Start 05/06/16 at 16:30 Collagenase (Santyl) APPLY TO NECROTIC AREA PRN PRN TOP SOILING; Start at 16:00 Insulin Aspart (Novolog Insulin Pen) NOVOLOG *MODERATE* ALGORITHM Q6 SC Last administered on 05/18/16 12:42; Admin Dose 2 UNIT; Start 05/09/16 at 12:00 Aspirin 81 mg 81 mg DAILY GTB Last administered on 05/18/16 09:13; Admin Dose 81 MG; Start 05/10/16 at 09:00 Tigecycline/ Sodium Chloride (Tygacil/NS) 100 ml @ 200 mls/hr Q12 IVPB Last administered on 05/18/16 09:13; Admin Dose 200 MLS/HR; Start 05/10/16 at 06: 00 Ascorbic Acid (Vitamin C) 500 mg DAILY GTB Last administered on 05/18/16 09: 13; Admin Dose 500 MG; Start 05/10/16 at 11:00 Famotidine (Pepcid) 20 mg DAILY GTB Last administered on 05/18/16 09:13; Admin Dose 20 MG; Start 05/10/16 at 11:00 Acetaminophen/ Hydrocodone Bitart ([place] (5/325)) 1 tab Q6H PRN GTB MODERATE PAIN LEVEL 4-6; Start 05/10/16 at 13:30 Magnesium Hydroxide (Milk Of Mag) 30 ml DAILY PRN GTB CONSTIPATION; Start at 10:00 Metoclopramide HCl (Reglan Liq) 10 mg Q6 GTB Last administered on 05/18/16 17 :14; Admin Dose 10 MG; Start 05/10/16 at 18:00 Hydralazine HCl (Apresoline) 25 mg Q8H GTB Last administered on 12/26/16at 21: 50; Admin Dose 25 MG; Start 05/14/16 at 20:00 Insulin Glargine (Lantus) 14 unit QPM SC Last administered on 05/17/16at 21:00 ; Admin Dose 14 UNIT; Start 05/14/16 at 21:00 Citric Acid/ Sodium Citrate 30 ml 30 ml TID PO Last administered on 05/18/16at 12:33; Admin Dose 30 ML; Start 05/15/16 at 21:00 Potassium Chloride/Dextrose/ Sod Cl (D5-1/2ns + KCl 30 Meq) 1,000 ml @ 50 mls/ hr Q20H IV Last administered on 05/18/16at 12:33; Admin Dose 50 MLS/HR; Start 05/18/16 at 12:30; Stop 05/19/16 at 08:29 AMBER LIEBERMAN MD May 18, 2016 18:04
[2016-05-18] MEDS: ATORVASTATIN 20 MG TAB GTB SCH (21:48)
[2016-05-18] MEDS: INSULIN GLARGINE [LANtus] 3 ML PEN SC SCH (22:08)
[2016-05-19] VITALS (23 sets, daily range): BP systolic 96–122; BP diastolic 56–72; PULSE 90–108; RESP 15–25
[2016-05-19] MEDS: METOCLOPRAMIDE (1 MG/ML) 10 ML CUP GTB SCH ×5 (00:41→22:55)
[2016-05-19] MEDS: metroNIDAZOLE 500 MG TAB GTB SCH ×3 (06:12→20:11)
[2016-05-19] MEDS: INSULIN ASPART [NOVOLOG] 3 ML PEN SC SCH ×5 (06:30→22:55)
[2016-05-19 07:44] LABS: POTASSIUM 5.1 mmol/L (3.5-5.1)
[2016-05-19 07:47] LABS: CREATININE 0.88 mg/dl (0.44-1.00)
[2016-05-19 07:50] LABS: BASOPHIL # 0.1 10^3/ul (0.0-0.1); BASOPHILS % 0.7 % (0.0-2.0); EOSINOPHILS # 0.5 10^3/ul (0.0-0.5); EOSINOPHILS % 3.7 % (0.0-7.0); HEMOGLOBIN 7.7 g/dl (12.0-16.0); LYMPHOCYTES # 2.3 10^3/ul (0.8-2.9); LYMPHOCYTES % 16.1 % (15.0-51.0); MEAN CORPUSCULAR HEMOGLOBIN 30.6 pg (29.0-33.0); MEAN CORPUSCULAR HGB CONC 33.7 g/dl (32.0-37.0); MEAN CORPUSCULAR VOLUME 90.8 fl (82.0-101.0); MEAN PLATELET VOLUME 8.2 fl (7.4-10.4); MONOCYTE # 0.4 10^3/ul (0.3-0.9); MONOCYTES % 3.1 % (0.0-11.0); NEUTROPHIL # 10.7 10^3/ul (1.6-7.5); NEUTROPHILS % 76.4 % (39.0-77.0); PLATELET COUNT 311 10^3/UL (140-440); RED BLOOD COUNT 2.53 10^6/ul (4.20-5.40); RED CELL DISTRIBUTION WIDTH 15.8 % (11.5-14.5)
[2016-05-19 07:55] LABS: CONDITION 1; LH ANALYZER COMMENTS 1
[2016-05-19] MEDS: CITRIC ACID/NA CITRATE 30 ML CUP PO SCH ×3 (08:25→20:11)
[2016-05-19] MEDS: MULTIVITAMINS 5 ML CUP GTB SCH (08:26)
[2016-05-19] MEDS: FAMOTIDINE 20 MG TAB GTB SCH (08:26)
[2016-05-19] MEDS: ASPIRIN 81 MG TAB GTB SCH (08:26)
[2016-05-19] MEDS: ASCORBIC ACID 500 MG TAB GTB SCH (08:26)
[2016-05-19] MEDS: LEVETIRACETAM (100 MG/ML) 5ML CUP GTB SCH ×2 (08:26→20:11)
[2016-05-19] MEDS: TIGECYCLINE 50 MG in SOD CHLORIDE 0.9% 100 ML IVPB SCH ×2 (08:29→20:12)
[2016-05-19] MEDS: COLLAGENASE 30 GM TUBE TOP SCH (11:42)
--- NOTE | 2016-05-19 12:02 | PN ---
Date/Time of Note Date/Time of Note DATE: 05/19/16 TIME: 12:00 Assessment/Plan VTE Prophylaxis VTE Prophylaxis Intervention: SCD's Lines/Catheters IV C[facility]ter Type (from [facility] Peripheral IV Urinary Cath still in place: Yes Reason Cath still needed: other (indicate) Assessment/Plan Chief Complaint/Hosp Course ASSESSMENT AND PLAN: 1. Sepsis, likely secondary to urinary tract infection versus sacral decubitus. The patient has been started on Tygacil , flagyl, and V.fend as per ID recommendations . Follow up infectious disease recommendations. We'll continue monitor patient blood pressure, off pressors at this time 2. Ventilator-dependent respiratory failure, status post trach. Pulmonology has been consulted. 3. Acute renal insufficiency, improving status post IVF, likely secondary to sepsis versus dehydration. nephrology consulted. Continue IV fluids. 4. Diabetes mellitus. Continue sliding scale and Lantus. 5. History of cerebrovascular accident. No acute issues at this time. Patient is bed bound and a phasic Unstageable sacral decubitus, possible osteomyelitis with a history of multiple debridements. 6. 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 7. Seizure disorder. 8. Chronic encephalopathy. 9. Urinary tract infection===> MDRO, urine culture KLEB PNEUMONIAE CARBAPENEMASE, follow up in infectious disease recommendations 10. Essential Hypertension, continue to monitor restart blood pressure medications cautiously 11. C. difficile toxin, repeat stool negative for C. difficile , follow-up ID recommendations to discontinue Flagyl 12. Hypokalemia, repleted 13. Hypernatremia, resolved We will continue monitor patient closely for recommendation management treatment as per clinical course Condition guarded Continue to monitor in telemetry floor Plan to discharge to intermediate facility when bed is available We will follow up with infectious disease physician regarding isolation status and discharge Problems: Subjective 24 Hr Interval Summary Free Text/Dictation No acute changes Patient remains afebrile Tolerating PEG tube feeding Exam/Review of Systems Vital Signs Vitals Vital Signs Date Time Temp Pulse Resp B/P Pulse Ox O2 Delivery O2 Flow Rate FiO2 05/19/16 11:58 99.0 95 15 96/67 97 05/19/16 10:53 30 Intake and Output 05/18/16 05/18/16 05/19/16 15:00 23:00 07:00 Intake Total 100 ml 1020 ml 920 ml Output Total 550 ml 1600 ml Balance 100 ml 470 ml -680 ml Exam General: The patient is a phasic, on vent via trach, does not respond to any pain or verbal stimuli HEENT: Atraumatic, normocephalic. The pupils are equal Neck: Supple , trach in place Chest: Normal Lungs: Decreased breath sounds bilateral lower lung field, positive crackles Heart: Normal S1-S2, Regular rhythm and rate. Abdomen: Soft , nontender, nondistended , bowel sounds are present. PEG tube in place Extremities: Flaccid, + 2 edema no cyanosis Neurologic: No meaningful neurologic examination findings Skin: Stage IV sacral decubitus Results Result Diagram: 05/19/16 0657 05/19/16 0657 Results 24 hrs Laboratory Tests Test 05/18/16 12:32 05/18/16 17:13 05/18/16 21:45 05/19/16 00:40 Bedside Glucose 145 116 172 148 Test 05/19/16 06:15 05/19/16 06:57 05/19/16 11:39 Bedside Glucose 156 185 Anion Gap 12 Basophils # 0.1 Basophils % 0.7 Blood Morphology Comment Blood Urea Nitrogen 24 H Calcium Level 7.0 L Carbon Dioxide Level 18 L Chloride Level 106 Creatinine 0.88 Eosinophils # 0.5 Eosinophils % 3.7 Glucose Level 134 Hematocrit 23.0 L Hemoglobin 7.7 L Lymphocytes # 2.3 Lymphocytes % 16.1 Mean Corpuscular Hemoglobin 30.6 Mean Corpuscular Hemoglobin Concent 33.7 Mean Corpuscular Volume 90.8 Mean Platelet Volume 8.2 Monocytes # 0.4 Monocytes % 3.1 Neutrophils # 10.7 H Neutrophils % 76.4 Nucleated Red Blood Cells # 0.0 Nucleated Red Blood Cells % 0.0 Platelet Count 311 Potassium Level 5.1 Red Blood Count 2.53 L Red Cell Distribution Width 15.8 H Sodium Level 131 L White Blood Count 14.0 H Medications Medications Current Medications Morphine Sulfate (morphine) 2 mg Q4H PRN IV SEVERE PAIN LEVEL 7-10 Last administered on 05/07/16at 18:26; Admin Dose 2 MG; Start 05/04/16 at 07:30 Docusate Sodium (Colace) 100 mg Q12H PRN PO CONSTIPATION; Start 05/04/16 at 07 :30 Ondansetron HCl (Zofran Inj) 4 mg Q6H PRN IV NAUSEA AND/OR VOMITING Last administered on 05/05/16at 17:56; Admin Dose 4 MG; Start 05/04/16 at 07:30 Lorazepam (Ativan) 0.5 mg Q6H PRN IV ANXIETY Last administered on 05/06/16at 23 :58; Admin Dose 0.5 MG; Start 05/04/16 at 07:30 Hydralazine HCl (Apresoline) 10 mg Q6H PRN IV ELEVATED BLOOD PRESSURE; Start 05/04/16 at 07:30 Nitroglycerin (Nitroglycerin (Sl Tab) 0.4 Mg) 1 tab Q5M PRN SL ANGINA; Start 05/04/16 at 07:30 Acetaminophen (Tylenol Supp) 650 mg Q4 PRN [place] PAIN OR TEMP ABOVE 38C; Start at 07:30 Atorvastatin Calcium (Lipitor) 20 mg QHS GTB Last administered on 05/18/16at 21 :48; Admin Dose 20 MG; Start 05/04/16 at 21:00 Bisacodyl (Dulcolax Supp) 10 mg Q24H PRN [place] CONSTIPATION; Start 05/04/16 at 07 :30 Levetiracetam (Keppra Liquid) 1,000 mg Q12 GTB Last administered on 05/19/16at 08:26; Admin Dose 1,000 MG; Start 05/04/16 at 09:00 Multivitamins (Thera-Plus) 5 ml DAILY GTB Last administered on 05/19/16at 08:26 ; Admin Dose 5 ML; Start 05/04/16 at 09:00 Miscellaneous Information 1 ea NOTE XX ; Start 05/04/16 at 09:00 Glucose (Glutose) 15 gm Q15M PRN PO DECREASED GLUCOSE; Start 05/04/16 at 09:00 Glucose (Glutose) 22.5 gm Q15M PRN PO DECREASED GLUCOSE; Start 05/04/16 at 09: 00 Dextrose (D50w Syringe) 25 ml Q15M PRN IV DECREASED GLUCOSE; Start 05/04/16 at 09:00 Dextrose (D50w Syringe) 50 ml Q15M PRN IV DECREASED GLUCOSE; Start 05/04/16 at 09:00 Glucagon (Glucagen) 1 mg Q15M PRN IM DECREASED GLUCOSE; Start 05/04/16 at 09: 00 Glucose (Glutose) 15 gm Q15M PRN BUCCAL DECREASED GLUCOSE; Start 05/04/16 at 09:00 Acetaminophen (Tylenol Liquid) 650 mg Q6H PRN GTB PAIN LEVEL 1-3 OR FEVER Last administered on 05/15/16 09:44; Admin Dose 650 MG; Start 05/04/16 at 18:30 Metronidazole (Flagyl) 500 mg Q8 GTB Last administered on 05/19/16 06:12; Admin Dose 500 MG; Start 05/05/16 at 14:00 Collagenase (Santyl) APPLY TO NECROTIC TISSUE DAILY TOP Last administered on 11:42; Admin Dose 1 APPLIC; Start 05/06/16 at 16:30 Collagenase (Santyl) APPLY TO NECROTIC AREA PRN PRN TOP SOILING; Start at 16:00 Insulin Aspart (Novolog Insulin Pen) NOVOLOG *MODERATE* ALGORITHM Q6 SC Last administered on 05/19/16 11:55; Admin Dose 4 UNIT; Start 05/09/16 at 12:00 Aspirin 81 mg 81 mg DAILY GTB Last administered on 05/19/16 08:26; Admin Dose 81 MG; Start 05/10/16 at 09:00 Tigecycline/ Sodium Chloride (Tygacil/NS) 100 ml @ 200 mls/hr Q12 IVPB Last administered on 05/19/16 08:29; Admin Dose 200 MLS/HR; Start 05/10/16 at 06: 00 Ascorbic Acid (Vitamin C) 500 mg DAILY GTB Last administered on 05/19/16 08: 26; Admin Dose 500 MG; Start 05/10/16 at 11:00 Famotidine (Pepcid) 20 mg DAILY GTB Last administered on 05/19/16 08:26; Admin Dose 20 MG; Start 05/10/16 at 11:00 Acetaminophen/ Hydrocodone Bitart ([place] (5/325)) 1 tab Q6H PRN GTB MODERATE PAIN LEVEL 4-6; Start 05/10/16 at 13:30 Magnesium Hydroxide (Milk Of Mag) 30 ml DAILY PRN GTB CONSTIPATION; Start at 10:00 Metoclopramide HCl (Reglan Liq) 10 mg Q6 GTB Last administered on 05/19/16 11 :43; Admin Dose 10 MG; Start 05/10/16 at 18:00 Hydralazine HCl (Apresoline) 25 mg Q8H GTB Last administered on 05/19/16 11: 44; Admin Dose 25 MG; Start 05/14/16 at 20:00 Insulin Glargine (Lantus) 14 unit QPM SC Last administered on 05/18/16 22:08 ; Admin Dose 14 UNIT; Start 05/14/16 at 21:00 Citric Acid/ Sodium Citrate (Bicitra) 30 ml TID PO Last administered on 08:25; Admin Dose 30 ML; Start 05/15/16 at 21:00 AMY HANKINS MD May 19, 2016 12:02
[2016-05-19] MEDS: COLISTIMETHATE 75 MG in SOD CHLORIDE 0.9% 100 ML IVPB SCH ×2 (13:41→21:50)
--- NOTE | 2016-05-19 14:46 | CONS ---
Date/Time of Note Date/Time of Note DATE: 05/19/16 TIME: 14:44 Consult Date/Type/Reason Admit Date/Time May 04, 2016 at 05:51 Type of Consultation: ID Ordering Provider: AMY HANKINS MD Subjective low grade temps, nad, persistent diarrhea Objective Vital Signs Date Time Temp Pulse Resp B/P Pulse Ox O2 Delivery O2 Flow Rate FiO2 05/19/16 13:13 98 20 100 30 05/19/16 11:58 99.0 96/67 Intake and Output 05/18/16 05/18/16 05/19/16 15:00 23:00 07:00 Intake Total 100 ml 1020 ml 920 ml Output Total 550 ml 1600 ml Balance 100 ml 470 ml -680 ml Results/Medications Result Diagram: 05/19/16 0657 05/19/16 0657 Results 24 hrs Laboratory Tests Test 05/18/16 17:13 05/18/16 21:45 05/19/16 00:40 05/19/16 06:15 Bedside Glucose 116 172 148 156 Test 05/19/16 06:57 05/19/16 11:39 Anion Gap 12 Basophils # 0.1 Basophils % 0.7 Blood Morphology Comment Blood Urea Nitrogen 24 H Calcium Level 7.0 L Carbon Dioxide Level 18 L Chloride Level 106 Creatinine 0.88 Eosinophils # 0.5 Eosinophils % 3.7 Glucose Level 134 Hematocrit 23.0 L Hemoglobin 7.7 L Lymphocytes # 2.3 Lymphocytes % 16.1 Mean Corpuscular Hemoglobin 30.6 Mean Corpuscular Hemoglobin Concent 33.7 Mean Corpuscular Volume 90.8 Mean Platelet Volume 8.2 Monocytes # 0.4 Monocytes % 3.1 Neutrophils # 10.7 H Neutrophils % 76.4 Nucleated Red Blood Cells # 0.0 Nucleated Red Blood Cells % 0.0 Platelet Count 311 Potassium Level 5.1 Red Blood Count 2.53 L Red Cell Distribution Width 15.8 H Sodium Level 131 L White Blood Count 14.0 H Bedside Glucose 185 Medications Current Medications Morphine Sulfate (morphine) 2 mg Q4H PRN IV SEVERE PAIN LEVEL 7-10 Last administered on 05/07/16at 18:26; Admin Dose 2 MG; Start 05/04/16 at 07:30 Docusate Sodium (Colace) 100 mg Q12H PRN PO CONSTIPATION; Start 05/04/16 at 07 :30 Ondansetron HCl (Zofran Inj) 4 mg Q6H PRN IV NAUSEA AND/OR VOMITING Last administered on 05/05/16at 17:56; Admin Dose 4 MG; Start 05/04/16 at 07:30 Lorazepam (Ativan) 0.5 mg Q6H PRN IV ANXIETY Last administered on 05/06/16at 23 :58; Admin Dose 0.5 MG; Start 05/04/16 at 07:30 Hydralazine HCl (Apresoline) 10 mg Q6H PRN IV ELEVATED BLOOD PRESSURE; Start 05/04/16 at 07:30 Nitroglycerin (Nitroglycerin (Sl Tab) 0.4 Mg) 1 tab Q5M PRN SL ANGINA; Start 05/04/16 at 07:30 Acetaminophen (Tylenol Supp) 650 mg Q4 PRN [place] PAIN OR TEMP ABOVE 38C; Start at 07:30 Atorvastatin Calcium (Lipitor) 20 mg QHS GTB Last administered on 05/18/16at 21 :48; Admin Dose 20 MG; Start 05/04/16 at 21:00 Bisacodyl (Dulcolax Supp) 10 mg Q24H PRN [place] CONSTIPATION; Start 05/04/16 at 07 :30 Levetiracetam (Keppra Liquid) 1,000 mg Q12 GTB Last administered on 05/19/16at 08:26; Admin Dose 1,000 MG; Start 05/04/16 at 09:00 Multivitamins (Thera-Plus) 5 ml DAILY GTB Last administered on 05/19/16at 08:26 ; Admin Dose 5 ML; Start 05/04/16 at 09:00 Miscellaneous Information 1 ea NOTE XX ; Start 05/04/16 at 09:00 Glucose (Glutose) 15 gm Q15M PRN PO DECREASED GLUCOSE; Start 05/04/16 at 09:00 Glucose (Glutose) 22.5 gm Q15M PRN PO DECREASED GLUCOSE; Start 05/04/16 at 09: 00 Dextrose (D50w Syringe) 25 ml Q15M PRN IV DECREASED GLUCOSE; Start 05/04/16 at 09:00 Dextrose (D50w Syringe) 50 ml Q15M PRN IV DECREASED GLUCOSE; Start 05/04/16 at 09:00 Glucagon (Glucagen) 1 mg Q15M PRN IM DECREASED GLUCOSE; Start 05/04/16 at 09: 00 Glucose (Glutose) 15 gm Q15M PRN BUCCAL DECREASED GLUCOSE; Start 05/04/16 at 09:00 Acetaminophen (Tylenol Liquid) 650 mg Q6H PRN GTB PAIN LEVEL 1-3 OR FEVER Last administered on 05/15/16at 09:44; Admin Dose 650 MG; Start 05/04/16 at 18:30 Metronidazole (Flagyl) 500 mg Q8 GTB Last administered on 05/19/16at 13:07; Admin Dose 500 MG; Start 05/05/16 at 14:00 Collagenase (Santyl) APPLY TO NECROTIC TISSUE DAILY TOP Last administered on at 11:42; Admin Dose 1 APPLIC; Start 05/06/16 at 16:30 Collagenase (Santyl) APPLY TO NECROTIC AREA PRN PRN TOP SOILING; Start at 16:00 Insulin Aspart (Novolog Insulin Pen) NOVOLOG *MODERATE* ALGORITHM Q6 SC Last administered on 05/19/16at 11:55; Admin Dose 4 UNIT; Start 05/09/16 at 12:00 Aspirin 81 mg 81 mg DAILY GTB Last administered on 05/19/16at 08:26; Admin Dose 81 MG; Start 05/10/16 at 09:00 Tigecycline/ Sodium Chloride (Tygacil/NS) 100 ml @ 200 mls/hr Q12 IVPB Last administered on 05/19/16at 08:29; Admin Dose 200 MLS/HR; Start 05/10/16 at 06: 00 Ascorbic Acid (Vitamin C) 500 mg DAILY GTB Last administered on 05/19/16at 08: 26; Admin Dose 500 MG; Start 05/10/16 at 11:00 Famotidine (Pepcid) 20 mg DAILY GTB Last administered on 05/19/16at 08:26; Admin Dose 20 MG; Start 05/10/16 at 11:00 Acetaminophen/ Hydrocodone Bitart ([place] (5/325)) 1 tab Q6H PRN GTB MODERATE PAIN LEVEL 4-6; Start 05/10/16 at 13:30 Magnesium Hydroxide (Milk Of Mag) 30 ml DAILY PRN GTB CONSTIPATION; Start at 10:00 Metoclopramide HCl (Reglan Liq) 10 mg Q6 GTB Last administered on 05/19/16 11 :43; Admin Dose 10 MG; Start 05/10/16 at 18:00 Hydralazine HCl (Apresoline) 25 mg Q8H GTB Last administered on 05/19/16at 11: 44; Admin Dose 25 MG; Start 05/14/16 at 20:00 Insulin Glargine (Lantus) 14 unit QPM SC Last administered on 05/18/16at 22:08 ; Admin Dose 14 UNIT; Start 05/14/16 at 21:00 Citric Acid/ Sodium Citrate 30 ml 30 ml TID PO Last administered on 05/19/16 13:07; Admin Dose 30 ML; Start 05/15/16 at 21:00 Colistimethate Sodium/Sodium Chloride (Coly-Mycin/NS) 100 ml @ 50 mls/hr Q12 IVPB Last administered on 05/19/16 13:41; Admin Dose 50 MLS/HR; Start at 13:30 Assessment/Plan Chief Complaint/Hosp Course INDWELLINGS: Trach, PEG, Reynolds, HARBORMASTER shunt. ANTIMICROBIALS: Tygacil, Flagyl PHYSICAL EXAMINATION: GENERAL: This is a chronically ill-appearing, middle-aged woman who is obtunded in no distress. HEENT: Head atraumatic, normocephalic. Sclerae anicteric. Buccal mucosa dry. NECK: Supple. Tracheostomy present. CHEST: Rise symmetrical. Breath sounds diminished at the bases. HEART: S1, S2. ABDOMEN: Soft, bowel tones present. EXTREMITIES: Without cyanosis. ASSESSMENT: 1. S/p sepsis with shock. 2. Clostridium difficile colitis. 3. Unstageable sacral decubitus, possible osteomyelitis with a history of multiple debridements. 4. 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 5. Seizure disorder. 6. Chronic encephalopathy. 7. Urinary tract infection===> MDRO, poss colonization. PLAN: Clinically unchanged, repeat urine cx growing GNR, pt start on IV Colistin for MDRO, continue local wound care, pending placement [facility] staff Problems: DUTCH STEELE NP May 19, 2016 14:46
--- NOTE | 2016-05-19 16:06 | CONS ---
Date/Time of Note Date/Time of Note DATE: 05/19/16 TIME: 16:05 Consult Date/Type/Reason Admit Date/Time May 04, 2016 at 05:51 Type of Consultation: pulmonary Ordering Provider: AMY HANKINS MD Subjective Patient remained stable no new events Continues mechanical ventilation Objective Vital Signs Date Time Temp Pulse Resp B/P Pulse Ox O2 Delivery O2 Flow Rate FiO2 05/19/16 15:59 98.3 101 16 122/72 100 05/19/16 15:42 30 Intake and Output 05/18/16 05/18/16 05/19/16 15:00 23:00 07:00 Intake Total 100 ml 1020 ml 920 ml Output Total 550 ml 1600 ml Balance 100 ml 470 ml -680 ml PHYSICAL EXAMINATION GENERAL: Chronically ill-appearing lady comfortable at rest VITAL SIGNS: see below. HEENT: Pupils equal, round, and reactive to light. Tracheostomy site clean and intact. CARDIAC: S1, S2, CHEST: Diminished air entry bilaterally. ABDOMEN: Mildly distended. No bowel sounds. EXTREMITIES: No cyanosis, clubbing, edema +1 NEUROLOGIC: Generalized weakness Results/Medications Result Diagram: 05/19/16 0657 05/19/16 0657 Results 24 hrs Laboratory Tests Test 05/18/16 17:13 05/18/16 21:45 05/19/16 00:40 05/19/16 06:15 Bedside Glucose 116 172 148 156 Test 05/19/16 06:57 05/19/16 11:39 Anion Gap 12 Basophils # 0.1 Basophils % 0.7 Blood Morphology Comment Blood Urea Nitrogen 24 H Calcium Level 7.0 L Carbon Dioxide Level 18 L Chloride Level 106 Creatinine 0.88 Eosinophils # 0.5 Eosinophils % 3.7 Glucose Level 134 Hematocrit 23.0 L Hemoglobin 7.7 L Lymphocytes # 2.3 Lymphocytes % 16.1 Mean Corpuscular Hemoglobin 30.6 Mean Corpuscular Hemoglobin Concent 33.7 Mean Corpuscular Volume 90.8 Mean Platelet Volume 8.2 Monocytes # 0.4 Monocytes % 3.1 Neutrophils # 10.7 H Neutrophils % 76.4 Nucleated Red Blood Cells # 0.0 Nucleated Red Blood Cells % 0.0 Platelet Count 311 Potassium Level 5.1 Red Blood Count 2.53 L Red Cell Distribution Width 15.8 H Sodium Level 131 L White Blood Count 14.0 H Bedside Glucose 185 Medications Current Medications Morphine Sulfate (morphine) 2 mg Q4H PRN IV SEVERE PAIN LEVEL 7-10 Last administered on 05/07/16at 18:26; Admin Dose 2 MG; Start 05/04/16 at 07:30 Docusate Sodium (Colace) 100 mg Q12H PRN PO CONSTIPATION; Start 05/04/16 at 07 :30 Ondansetron HCl (Zofran Inj) 4 mg Q6H PRN IV NAUSEA AND/OR VOMITING Last administered on 05/05/16at 17:56; Admin Dose 4 MG; Start 05/04/16 at 07:30 Lorazepam (Ativan) 0.5 mg Q6H PRN IV ANXIETY Last administered on 05/06/16at 23 :58; Admin Dose 0.5 MG; Start 05/04/16 at 07:30 Hydralazine HCl (Apresoline) 10 mg Q6H PRN IV ELEVATED BLOOD PRESSURE; Start 05/04/16 at 07:30 Nitroglycerin (Nitroglycerin (Sl Tab) 0.4 Mg) 1 tab Q5M PRN SL ANGINA; Start 05/04/16 at 07:30 Acetaminophen (Tylenol Supp) 650 mg Q4 PRN [place] PAIN OR TEMP ABOVE 38C; Start at 07:30 Atorvastatin Calcium (Lipitor) 20 mg QHS GTB Last administered on 05/18/16at 21 :48; Admin Dose 20 MG; Start 05/04/16 at 21:00 Bisacodyl (Dulcolax Supp) 10 mg Q24H PRN [place] CONSTIPATION; Start 05/04/16 at 07 :30 Levetiracetam (Keppra Liquid) 1,000 mg Q12 GTB Last administered on 05/19/16at 08:26; Admin Dose 1,000 MG; Start 05/04/16 at 09:00 Multivitamins (Thera-Plus) 5 ml DAILY GTB Last administered on 05/19/16at 08:26 ; Admin Dose 5 ML; Start 05/04/16 at 09:00 Miscellaneous Information 1 ea NOTE XX ; Start 05/04/16 at 09:00 Glucose (Glutose) 15 gm Q15M PRN PO DECREASED GLUCOSE; Start 05/04/16 at 09:00 Glucose (Glutose) 22.5 gm Q15M PRN PO DECREASED GLUCOSE; Start 05/04/16 at 09: 00 Dextrose (D50w Syringe) 25 ml Q15M PRN IV DECREASED GLUCOSE; Start 05/04/16 at 09:00 Dextrose (D50w Syringe) 50 ml Q15M PRN IV DECREASED GLUCOSE; Start 05/04/16 at 09:00 Glucagon (Glucagen) 1 mg Q15M PRN IM DECREASED GLUCOSE; Start 05/04/16 at 09: 00 Glucose (Glutose) 15 gm Q15M PRN BUCCAL DECREASED GLUCOSE; Start 05/04/16 at 09:00 Acetaminophen (Tylenol Liquid) 650 mg Q6H PRN GTB PAIN LEVEL 1-3 OR FEVER Last administered on 05/15/16 09:44; Admin Dose 650 MG; Start 05/04/16 at 18:30 Metronidazole (Flagyl) 500 mg Q8 GTB Last administered on 05/19/16 13:07; Admin Dose 500 MG; Start 05/05/16 at 14:00 Collagenase (Santyl) APPLY TO NECROTIC TISSUE DAILY TOP Last administered on 11:42; Admin Dose 1 APPLIC; Start 05/06/16 at 16:30 Collagenase (Santyl) APPLY TO NECROTIC AREA PRN PRN TOP SOILING; Start at 16:00 Insulin Aspart (Novolog Insulin Pen) NOVOLOG *MODERATE* ALGORITHM Q6 SC Last administered on 05/19/16 11:55; Admin Dose 4 UNIT; Start 05/09/16 at 12:00 Aspirin 81 mg 81 mg DAILY GTB Last administered on 05/19/16 08:26; Admin Dose 81 MG; Start 05/10/16 at 09:00 Tigecycline/ Sodium Chloride (Tygacil/NS) 100 ml @ 200 mls/hr Q12 IVPB Last administered on 05/19/16 08:29; Admin Dose 200 MLS/HR; Start 05/10/16 at 06: 00 Ascorbic Acid (Vitamin C) 500 mg DAILY GTB Last administered on 05/19/16 08: 26; Admin Dose 500 MG; Start 05/10/16 at 11:00 Famotidine (Pepcid) 20 mg DAILY GTB Last administered on 05/19/16 08:26; Admin Dose 20 MG; Start 05/10/16 at 11:00 Acetaminophen/ Hydrocodone Bitart ([place] (5/325)) 1 tab Q6H PRN GTB MODERATE PAIN LEVEL 4-6; Start 05/10/16 at 13:30 Magnesium Hydroxide (Milk Of Mag) 30 ml DAILY PRN GTB CONSTIPATION; Start at 10:00 Metoclopramide HCl (Reglan Liq) 10 mg Q6 GTB Last administered on 05/19/16at 11 :43; Admin Dose 10 MG; Start 05/10/16 at 18:00 Hydralazine HCl (Apresoline) 25 mg Q8H GTB Last administered on 05/19/16at 11: 44; Admin Dose 25 MG; Start 05/14/16 at 20:00 Insulin Glargine (Lantus) 14 unit QPM SC Last administered on 05/18/16at 22:08 ; Admin Dose 14 UNIT; Start 05/14/16 at 21:00 Citric Acid/ Sodium Citrate 30 ml 30 ml TID PO Last administered on 05/19/16at 13:07; Admin Dose 30 ML; Start 05/15/16 at 21:00 Colistimethate Sodium/Sodium Chloride (Coly-Mycin/NS) 100 ml @ 50 mls/hr Q12 IVPB Last administered on 05/19/16at 13:41; Admin Dose 50 MLS/HR; Start at 13:30 Assessment/Plan Chief Complaint/Hosp Course IMPRESSION AND PLAN: 1. Status post Septic shock, likely secondary to urinary tract infection. Persistent leukocytosis, little better. 2. Chronic encephalopathy. 3. History of hemorrhagic cerebrovascular accident. 4. Vent dependent respiratory failure. 5. Severe metabolic acidosis. 6. Anemia likely of chronic disease plus hemodilution The patient will need: 1. Monitor H&H 2. Gentle hydration 3. Broad spectrum antibiotics. 4. Deep venous thrombosis and gastrointestinal prophylaxis. 5. Intravenous bicarbonate needed 6. Tube feeding as tolerated Prognosis very poor, consider palliative care eval Consider discharge back to snf facility Problems: JIMMY GONSALEZ MD, [facility] May 19, 2016 16:06
--- NOTE | 2016-05-19 19:16 | CONS ---
Date/Time of Note Date/Time of Note DATE: 05/19/16 TIME: 19:15 Assessment/Plan Assessment/Plan Chief Complaint/Hosp Course IMPRESSION: 1. Patient has [id number] kidney disease. BETTER 2. Acute renal failure due to dehydration.BETTER 3. Underlying acute tubular necrosis due to sepsis.BETTER 4. Severe sepsis. 5. hypernatremia.better now hyponatremia 6. Free water deficit.BETTER 7. RES FAILURE 8. Lactic acidosis. 9. vdrf. 10. Anemia. 11. History of tracheostomy. 12 METABOLIC ACIDOSIS better PLAN CK LABS WATER G TUBE f/u lytes Problems: Consultation Date/Type/Reason Admit Date/Time May 04, 2016 at 05:51 Type of Consultation: renal Referring Provider: AMY HANKINS MD 24 HR Interval Summary Subjective hx not possible: pt non-verbal Exam/Review of Systems Vital Signs Vitals Vital Signs Date Time Temp Pulse Resp B/P Pulse Ox O2 Delivery O2 Flow Rate FiO2 05/19/16 17:26 109 21 100 30 05/19/16 15:59 98.3 122/72 Intake and Output 05/18/16 05/18/16 05/19/16 15:00 23:00 07:00 Intake Total 100 ml 1020 ml 920 ml Output Total 550 ml 1600 ml Balance 100 ml 470 ml -680 ml Exam Respiratory: diminished breath sounds Cardiovascular: regular rate and rhythm Gastrointestinal: soft Extremities: edema (tr) Results Result Diagram: 05/19/16 0657 05/19/16 0657 Results 24 hrs Laboratory Tests Test 05/18/16 21:45 05/19/16 00:40 05/19/16 06:15 05/19/16 06:57 Bedside Glucose 172 148 156 Anion Gap 12 Basophils # 0.1 Basophils % 0.7 Blood Morphology Comment Blood Urea Nitrogen 24 H Calcium Level 7.0 L Carbon Dioxide Level 18 L Chloride Level 106 Creatinine 0.88 Eosinophils # 0.5 Eosinophils % 3.7 Glucose Level 134 Hematocrit 23.0 L Hemoglobin 7.7 L Lymphocytes # 2.3 Lymphocytes % 16.1 Mean Corpuscular Hemoglobin 30.6 Mean Corpuscular Hemoglobin Concent 33.7 Mean Corpuscular Volume 90.8 Mean Platelet Volume 8.2 Monocytes # 0.4 Monocytes % 3.1 Neutrophils # 10.7 H Neutrophils % 76.4 Nucleated Red Blood Cells # 0.0 Nucleated Red Blood Cells % 0.0 Platelet Count 311 Potassium Level 5.1 Red Blood Count 2.53 L Red Cell Distribution Width 15.8 H Sodium Level 131 L White Blood Count 14.0 H Test 05/19/16 11:39 05/19/16 17:53 Bedside Glucose 185 133 Medications Medications Current Medications Morphine Sulfate (morphine) 2 mg Q4H PRN IV SEVERE PAIN LEVEL 7-10 Last administered on 05/07/16 18:26; Admin Dose 2 MG; Start 05/04/16 at 07:30 Docusate Sodium (Colace) 100 mg Q12H PRN PO CONSTIPATION; Start 05/04/16 at 07 :30 Ondansetron HCl (Zofran Inj) 4 mg Q6H PRN IV NAUSEA AND/OR VOMITING Last administered on 05/05/16at 17:56; Admin Dose 4 MG; Start 05/04/16 at 07:30 Lorazepam (Ativan) 0.5 mg Q6H PRN IV ANXIETY Last administered on 05/06/16at 23 :58; Admin Dose 0.5 MG; Start 05/04/16 at 07:30 Hydralazine HCl (Apresoline) 10 mg Q6H PRN IV ELEVATED BLOOD PRESSURE; Start 05/04/16 at 07:30 Nitroglycerin (Nitroglycerin (Sl Tab) 0.4 Mg) 1 tab Q5M PRN SL ANGINA; Start 05/04/16 at 07:30 Acetaminophen (Tylenol Supp) 650 mg Q4 PRN [place] PAIN OR TEMP ABOVE 38C; Start at 07:30 Atorvastatin Calcium (Lipitor) 20 mg QHS GTB Last administered on 05/18/16at 21 :48; Admin Dose 20 MG; Start 05/04/16 at 21:00 Bisacodyl (Dulcolax Supp) 10 mg Q24H PRN [place] CONSTIPATION; Start 05/04/16 at 07 :30 Levetiracetam (Keppra Liquid) 1,000 mg Q12 GTB Last administered on 05/19/16at 08:26; Admin Dose 1,000 MG; Start 05/04/16 at 09:00 Multivitamins (Thera-Plus) 5 ml DAILY GTB Last administered on 05/19/16at 08:26 ; Admin Dose 5 ML; Start 05/04/16 at 09:00 Miscellaneous Information 1 ea NOTE XX ; Start 05/04/16 at 09:00 Glucose (Glutose) 15 gm Q15M PRN PO DECREASED GLUCOSE; Start 05/04/16 at 09:00 Glucose (Glutose) 22.5 gm Q15M PRN PO DECREASED GLUCOSE; Start 05/04/16 at 09: 00 Dextrose (D50w Syringe) 25 ml Q15M PRN IV DECREASED GLUCOSE; Start 05/04/16 at 09:00 Dextrose (D50w Syringe) 50 ml Q15M PRN IV DECREASED GLUCOSE; Start 05/04/16 at 09:00 Glucagon (Glucagen) 1 mg Q15M PRN IM DECREASED GLUCOSE; Start 05/04/16 at 09: 00 Glucose (Glutose) 15 gm Q15M PRN BUCCAL DECREASED GLUCOSE; Start 05/04/16 at 09:00 Acetaminophen (Tylenol Liquid) 650 mg Q6H PRN GTB PAIN LEVEL 1-3 OR FEVER Last administered on 05/15/16at 09:44; Admin Dose 650 MG; Start 05/04/16 at 18:30 Metronidazole (Flagyl) 500 mg Q8 GTB Last administered on 05/19/16at 13:07; Admin Dose 500 MG; Start 05/05/16 at 14:00 Collagenase (Santyl) APPLY TO NECROTIC TISSUE DAILY TOP Last administered on at 11:42; Admin Dose 1 APPLIC; Start 05/06/16 at 16:30 Collagenase (Santyl) APPLY TO NECROTIC AREA PRN PRN TOP SOILING; Start at 16:00 Insulin Aspart (Novolog Insulin Pen) NOVOLOG *MODERATE* ALGORITHM Q6 SC Last administered on 05/19/16at 11:55; Admin Dose 4 UNIT; Start 05/09/16 at 12:00 Aspirin 81 mg 81 mg DAILY GTB Last administered on 05/19/16 08:26; Admin Dose 81 MG; Start 05/10/16 at 09:00 Tigecycline/ Sodium Chloride (Tygacil/NS) 100 ml @ 200 mls/hr Q12 IVPB Last administered on 05/19/16 08:29; Admin Dose 200 MLS/HR; Start 05/10/16 at 06: 00 Ascorbic Acid (Vitamin C) 500 mg DAILY GTB Last administered on 12/28/16at 08: 26; Admin Dose 500 MG; Start 05/10/16 at 11:00 Famotidine (Pepcid) 20 mg DAILY GTB Last administered on 05/19/16 08:26; Admin Dose 20 MG; Start 05/10/16 at 11:00 Acetaminophen/ Hydrocodone Bitart ([place] (5/325)) 1 tab Q6H PRN GTB MODERATE PAIN LEVEL 4-6; Start 05/10/16 at 13:30 Magnesium Hydroxide (Milk Of Mag) 30 ml DAILY PRN GTB CONSTIPATION; Start at 10:00 Metoclopramide HCl (Reglan Liq) 10 mg Q6 GTB Last administered on 05/19/16at 18 :01; Admin Dose 10 MG; Start 05/10/16 at 18:00 Hydralazine HCl (Apresoline) 25 mg Q8H GTB Last administered on 05/19/16at 11: 44; Admin Dose 25 MG; Start 05/14/16 at 20:00 Insulin Glargine (Lantus) 14 unit QPM SC Last administered on 05/18/16at 22:08 ; Admin Dose 14 UNIT; Start 05/14/16 at 21:00 Citric Acid/ Sodium Citrate 30 ml 30 ml TID PO Last administered on 05/19/16at 13:07; Admin Dose 30 ML; Start 05/15/16 at 21:00 Colistimethate Sodium/Sodium Chloride (Coly-Mycin/NS) 100 ml @ 50 mls/hr Q12 IVPB Last administered on 05/19/16at 13:41; Admin Dose 50 MLS/HR; Start at 13:30 AMBER LIEBERMAN MD May 19, 2016 19:16
[2016-05-19] MEDS: ATORVASTATIN 20 MG TAB GTB SCH (20:12)
[2016-05-19] MEDS: INSULIN GLARGINE [LANtus] 3 ML PEN SC SCH (20:18)
[2016-05-20] VITALS (23 sets, daily range): BP systolic 80–117; BP diastolic 44–67; PULSE 92–107; RESP 14–28
[2016-05-20] MEDS: METOCLOPRAMIDE (1 MG/ML) 10 ML CUP GTB SCH ×3 (05:00→17:37)
[2016-05-20] MEDS: INSULIN ASPART [NOVOLOG] 3 ML PEN SC SCH ×4 (05:00→22:00)
[2016-05-20] MEDS: ACETAMINOPHEN 650MG/20.3ML CUP GTB PRN (05:00)
[2016-05-20] MEDS: metroNIDAZOLE 500 MG TAB GTB SCH ×3 (05:00→22:57)
[2016-05-20] MEDS: MULTIVITAMINS 5 ML CUP GTB SCH (08:16)
[2016-05-20] MEDS: LEVETIRACETAM (100 MG/ML) 5ML CUP GTB SCH ×2 (08:16→22:56)
[2016-05-20] MEDS: CITRIC ACID/NA CITRATE 30 ML CUP PO SCH ×3 (08:17→22:57)
[2016-05-20] MEDS: FAMOTIDINE 20 MG TAB GTB SCH (08:17)
[2016-05-20] MEDS: ASCORBIC ACID 500 MG TAB GTB SCH (08:17)
[2016-05-20] MEDS: ASPIRIN 81 MG TAB GTB SCH (08:17)
[2016-05-20] MEDS: COLLAGENASE 30 GM TUBE TOP SCH (08:18)
[2016-05-20] MEDS: TIGECYCLINE 50 MG in SOD CHLORIDE 0.9% 100 ML IVPB SCH ×2 (08:26→22:57)
[2016-05-20] MEDS: COLISTIMETHATE 75 MG in SOD CHLORIDE 0.9% 100 ML IVPB SCH ×2 (09:31→22:57)
--- NOTE | 2016-05-20 12:26 | PN ---
Date/Time of Note Date/Time of Note DATE: 05/20/16 TIME: 12:24 Assessment/Plan VTE Prophylaxis VTE Prophylaxis Intervention: SCD's Lines/Catheters IV Catheter Type (from Nrs): Peripheral IV Urinary Cath still in place: Yes Reason Cath still needed: other (indicate) Assessment/Plan Chief Complaint/Hosp Course ASSESSMENT AND PLAN: 1. Sepsis, likely secondary to urinary tract infection versus sacral decubitus. The patient has been started on Tygacil , flagyl, and V.fend as per ID recommendations . Follow up infectious disease recommendations. 2. Ventilator-dependent respiratory failure, status post trach. Pulmonology has been consulted. 3. Acute renal insufficiency, improving status post IVF, likely secondary to sepsis versus dehydration. nephrology consulted. Continue IV fluids. 4. Diabetes mellitus. Continue sliding scale and Lantus. 5. History of cerebrovascular accident. No acute issues at this time. Patient is bed bound and a phasic Unstageable sacral decubitus, possible osteomyelitis with a history of multiple debridements. 6. 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 7. Seizure disorder. 8. Chronic encephalopathy. 9. Urinary tract infection===> MDRO, urine culture KLEB PNEUMONIAE CARBAPENEMASE, follow up in infectious disease recommendations 10. Essential Hypertension, continue to monitor restart blood pressure medications cautiously 11. C. difficile toxin, repeat stool negative for C. difficile , follow-up ID recommendations to discontinue Flagyl 12. Hypokalemia, repleted 13. Hypernatremia, resolved We will continue monitor patient closely for recommendation management treatment as per clinical course Condition guarded Continue to monitor in telemetry floor Plan to discharge to group home facility when bed is available We will follow up with infectious disease physician regarding isolation status and discharge Problems: Subjective 24 Hr Interval Summary Free Text/Dictation No acute changes Patient is tolerating PEG tube feeding No family at the bedside Exam/Review of Systems Vital Signs Vitals Vital Signs Date Time Temp Pulse Resp B/P Pulse Ox O2 Delivery O2 Flow Rate FiO2 05/20/16 12:04 99.6 80 18 113/50 100 05/20/16 11:03 30 Intake and Output 05/19/16 05/19/16 05/20/16 15:00 23:00 07:00 Intake Total 1120 ml 920 ml Output Total 1250 ml 1200 ml Balance -130 ml -280 ml Exam Exam General: The patient is a phasic, on vent via trach, does not respond to any pain or verbal stimuli HEENT: Atraumatic, normocephalic. The pupils are equal Neck: Supple , trach in place Chest: Normal Lungs: Decreased breath sounds bilateral lower lung field, positive crackles Heart: Normal S1-S2, Regular rhythm and rate. Abdomen: Soft , nontender, nondistended , bowel sounds are present. PEG tube in place Extremities: Flaccid, + 2 edema no cyanosis Neurologic: No meaningful neurologic examination findings Skin: Stage IV sacral decubitus Results Result Diagram: 05/19/16 0657 05/19/16 0657 Results 24 hrs Laboratory Tests Test 05/19/16 17:53 05/19/16 20:05 05/19/16 22:54 05/20/16 04:54 Bedside Glucose 133 129 116 92 Test 05/20/16 12:15 Bedside Glucose 106 Medications Medications Current Medications Morphine Sulfate (morphine) 2 mg Q4H PRN IV SEVERE PAIN LEVEL 7-10 Last administered on 05/07/16at 18:26; Admin Dose 2 MG; Start 05/04/16 at 07:30 Docusate Sodium (Colace) 100 mg Q12H PRN PO CONSTIPATION; Start 05/04/16 at 07 :30 Ondansetron HCl (Zofran Inj) 4 mg Q6H PRN IV NAUSEA AND/OR VOMITING Last administered on 05/05/16at 17:56; Admin Dose 4 MG; Start 05/04/16 at 07:30 Lorazepam (Ativan) 0.5 mg Q6H PRN IV ANXIETY Last administered on 05/06/16at 23 :58; Admin Dose 0.5 MG; Start 05/04/16 at 07:30 Hydralazine HCl (Apresoline) 10 mg Q6H PRN IV ELEVATED BLOOD PRESSURE; Start 05/04/16 at 07:30 Nitroglycerin (Nitroglycerin (Sl Tab) 0.4 Mg) 1 tab Q5M PRN SL ANGINA; Start 05/04/16 at 07:30 Acetaminophen (Tylenol Supp) 650 mg Q4 PRN [place] PAIN OR TEMP ABOVE 38C; Start at 07:30 Atorvastatin Calcium (Lipitor) 20 mg QHS GTB Last administered on 05/19/16at 20 :12; Admin Dose 20 MG; Start 05/04/16 at 21:00 Bisacodyl (Dulcolax Supp) 10 mg Q24H PRN [place] CONSTIPATION; Start 05/04/16 at 07 :30 Levetiracetam (Keppra Liquid) 1,000 mg Q12 GTB Last administered on 05/20/16at 08:16; Admin Dose 1,000 MG; Start 05/04/16 at 09:00 Multivitamins (Thera-Plus) 5 ml DAILY GTB Last administered on 05/20/16at 08:16 ; Admin Dose 5 ML; Start 05/04/16 at 09:00 Miscellaneous Information 1 ea NOTE XX ; Start 05/04/16 at 09:00 Glucose (Glutose) 15 gm Q15M PRN PO DECREASED GLUCOSE; Start 05/04/16 at 09:00 Glucose (Glutose) 22.5 gm Q15M PRN PO DECREASED GLUCOSE; Start 05/04/16 at 09: 00 Dextrose (D50w Syringe) 25 ml Q15M PRN IV DECREASED GLUCOSE; Start 05/04/16 at 09:00 Dextrose (D50w Syringe) 50 ml Q15M PRN IV DECREASED GLUCOSE; Start 05/04/16 at 09:00 Glucagon (Glucagen) 1 mg Q15M PRN IM DECREASED GLUCOSE; Start 05/04/16 at 09: 00 Glucose (Glutose) 15 gm Q15M PRN BUCCAL DECREASED GLUCOSE; Start 05/04/16 at 09:00 Acetaminophen (Tylenol Liquid) 650 mg Q6H PRN GTB PAIN LEVEL 1-3 OR FEVER Last administered on 05/20/16at 05:00; Admin Dose 650 MG; Start 05/04/16 at 18:30 Metronidazole (Flagyl) 500 mg Q8 GTB Last administered on 05/20/16at 05:00; Admin Dose 500 MG; Start 05/05/16 at 14:00 Collagenase (Santyl) APPLY TO NECROTIC TISSUE DAILY TOP Last administered on at 08:18; Admin Dose 1 APPLIC; Start 05/06/16 at 16:30 Collagenase (Santyl) APPLY TO NECROTIC AREA PRN PRN TOP SOILING; Start at 16:00 Insulin Aspart (Novolog Insulin Pen) NOVOLOG *MODERATE* ALGORITHM Q6 SC Last administered on 05/19/16 11:55; Admin Dose 4 UNIT; Start 05/09/16 at 12:00 Aspirin 81 mg 81 mg DAILY GTB Last administered on 05/20/16 08:17; Admin Dose 81 MG; Start 05/10/16 at 09:00 Tigecycline/ Sodium Chloride (Tygacil/NS) 100 ml @ 200 mls/hr Q12 IVPB Last administered on 05/20/16 08:26; Admin Dose 200 MLS/HR; Start 05/10/16 at 06: 00 Ascorbic Acid (Vitamin C) 500 mg DAILY GTB Last administered on 05/20/16 08: 17; Admin Dose 500 MG; Start 05/10/16 at 11:00 Famotidine (Pepcid) 20 mg DAILY GTB Last administered on 05/20/16 08:17; Admin Dose 20 MG; Start 05/10/16 at 11:00 Acetaminophen/ Hydrocodone Bitart ([place] (5/325)) 1 tab Q6H PRN GTB MODERATE PAIN LEVEL 4-6; Start 05/10/16 at 13:30 Magnesium Hydroxide (Milk Of Mag) 30 ml DAILY PRN GTB CONSTIPATION; Start at 10:00 Metoclopramide HCl (Reglan Liq) 10 mg Q6 GTB Last administered on 05/20/16 12 :16; Admin Dose 10 MG; Start 05/10/16 at 18:00 Hydralazine HCl (Apresoline) 25 mg Q8H GTB Last administered on 05/20/16 12: 16; Admin Dose 25 MG; Start 05/14/16 at 20:00 Insulin Glargine (Lantus) 14 unit QPM SC Last administered on 05/19/16 20:18 ; Admin Dose 14 UNIT; Start 05/14/16 at 21:00 Citric Acid/ Sodium Citrate 30 ml 30 ml TID PO Last administered on 05/20/16 08:17; Admin Dose 30 ML; Start 05/15/16 at 21:00 Colistimethate Sodium/Sodium Chloride (Coly-Mycin/NS) 100 ml @ 50 mls/hr Q12 IVPB Last administered on 05/20/16 09:31; Admin Dose 50 MLS/HR; Start at 13:30 AMY HANKINS MD May 20, 2016 12:26
--- NOTE | 2016-05-20 15:59 | CONS ---
Date/Time of Note Date/Time of Note DATE: 05/20/16 TIME: 15:58 Consult Date/Type/Reason Admit Date/Time May 04, 2016 at 05:51 Type of Consultation: pulmonary Ordering Provider: AMY HANKINS MD Subjective No significant change in condition Objective Vital Signs Date Time Temp Pulse Resp B/P Pulse Ox O2 Delivery O2 Flow Rate FiO2 05/20/16 15:26 99.4 90 14 97/59 100 05/20/16 11:03 30 Intake and Output 05/19/16 05/19/16 05/20/16 14:59 22:59 06:59 Intake Total 1120 ml 920 ml Output Total 1250 ml 1200 ml Balance -130 ml -280 ml PHYSICAL EXAMINATION GENERAL: Chronically ill-appearing lady comfortable at rest VITAL SIGNS: see below. HEENT: Pupils equal, round, and reactive to light. Tracheostomy site clean and intact. CARDIAC: S1, S2, CHEST: Diminished air entry bilaterally. ABDOMEN: Mildly distended. No bowel sounds. EXTREMITIES: No cyanosis, clubbing, edema +1 NEUROLOGIC: Generalized weakness Results/Medications Result Diagram: 05/19/16 0657 05/19/16 0657 Results 24 hrs Laboratory Tests Test 05/19/16 17:53 05/19/16 20:05 05/19/16 22:54 05/20/16 04:54 Bedside Glucose 133 129 116 92 Test 05/20/16 12:15 05/20/16 14:09 Bedside Glucose 106 106 Medications Current Medications Morphine Sulfate (morphine) 2 mg Q4H PRN IV SEVERE PAIN LEVEL 7-10 Last administered on 05/07/16at 18:26; Admin Dose 2 MG; Start 05/04/16 at 07:30 Docusate Sodium (Colace) 100 mg Q12H PRN PO CONSTIPATION; Start 05/04/16 at 07 :30 Lorazepam (Ativan) 0.5 mg Q6H PRN IV ANXIETY Last administered on 05/06/16at 23 :58; Admin Dose 0.5 MG; Start 05/04/16 at 07:30 Hydralazine HCl (Apresoline) 10 mg Q6H PRN IV ELEVATED BLOOD PRESSURE; Start 05/04/16 at 07:30 Nitroglycerin (Nitroglycerin (Sl Tab) 0.4 Mg) 1 tab Q5M PRN SL ANGINA; Start 05/04/16 at 07:30 Acetaminophen (Tylenol Supp) 650 mg Q4 PRN [place] PAIN OR TEMP ABOVE 38C; Start at 07:30 Atorvastatin Calcium (Lipitor) 20 mg QHS GTB Last administered on 05/19/16at 20 :12; Admin Dose 20 MG; Start 05/04/16 at 21:00 Bisacodyl (Dulcolax Supp) 10 mg Q24H PRN [place] CONSTIPATION; Start 05/04/16 at 07 :30 Levetiracetam (Keppra Liquid) 1,000 mg Q12 GTB Last administered on 05/20/16at 08:16; Admin Dose 1,000 MG; Start 05/04/16 at 09:00 Multivitamins (Thera-Plus) 5 ml DAILY GTB Last administered on 05/20/16at 08:16 ; Admin Dose 5 ML; Start 05/04/16 at 09:00 Miscellaneous Information 1 ea NOTE XX ; Start 05/04/16 at 09:00 Glucose (Glutose) 15 gm Q15M PRN PO DECREASED GLUCOSE; Start 05/04/16 at 09:00 Glucose (Glutose) 22.5 gm Q15M PRN PO DECREASED GLUCOSE; Start 05/04/16 at 09: 00 Dextrose (D50w Syringe) 25 ml Q15M PRN IV DECREASED GLUCOSE; Start 05/04/16 at 09:00 Dextrose (D50w Syringe) 50 ml Q15M PRN IV DECREASED GLUCOSE; Start 05/04/16 at 09:00 Glucagon (Glucagen) 1 mg Q15M PRN IM DECREASED GLUCOSE; Start 05/04/16 at 09: 00 Glucose (Glutose) 15 gm Q15M PRN BUCCAL DECREASED GLUCOSE; Start 05/04/16 at 09:00 Acetaminophen (Tylenol Liquid) 650 mg Q6H PRN GTB PAIN LEVEL 1-3 OR FEVER Last administered on 05/20/16at 05:00; Admin Dose 650 MG; Start 05/04/16 at 18:30 Metronidazole (Flagyl) 500 mg Q8 GTB Last administered on 05/20/16at 13:31; Admin Dose 500 MG; Start 05/05/16 at 14:00 Collagenase (Santyl) APPLY TO NECROTIC TISSUE DAILY TOP Last administered on at 08:18; Admin Dose 1 APPLIC; Start 05/06/16 at 16:30 Collagenase (Santyl) APPLY TO NECROTIC AREA PRN PRN TOP SOILING; Start at 16:00 Aspirin 81 mg 81 mg DAILY GTB Last administered on 05/20/16at 08:17; Admin Dose 81 MG; Start 05/10/16 at 09:00 Tigecycline/ Sodium Chloride (Tygacil/NS) 100 ml @ 200 mls/hr Q12 IVPB Last administered on 05/20/16at 08:26; Admin Dose 200 MLS/HR; Start 05/10/16 at 06: 00 Ascorbic Acid (Vitamin C) 500 mg DAILY GTB Last administered on 05/20/16 08: 17; Admin Dose 500 MG; Start 05/10/16 at 11:00 Famotidine (Pepcid) 20 mg DAILY GTB Last administered on 05/20/16 08:17; Admin Dose 20 MG; Start 05/10/16 at 11:00 Acetaminophen/ Hydrocodone Bitart ([place] (5/325)) 1 tab Q6H PRN GTB MODERATE PAIN LEVEL 4-6; Start 05/10/16 at 13:30 Metoclopramide HCl (Reglan Liq) 10 mg Q6 GTB Last administered on 05/20/16at 12 :16; Admin Dose 10 MG; Start 05/10/16 at 18:00 Hydralazine HCl (Apresoline) 25 mg Q8H GTB Last administered on 05/20/16at 12: 16; Admin Dose 25 MG; Start 05/14/16 at 20:00 Insulin Glargine (Lantus) 14 unit QPM SC Last administered on 05/19/16at 20:18 ; Admin Dose 14 UNIT; Start 05/14/16 at 21:00 Citric Acid/ Sodium Citrate 30 ml 30 ml TID PO Last administered on 05/20/16 13:31; Admin Dose 30 ML; Start 05/15/16 at 21:00 Colistimethate Sodium/Sodium Chloride (Coly-Mycin/NS) 100 ml @ 50 mls/hr Q12 IVPB Last administered on 05/20/16at 09:31; Admin Dose 50 MLS/HR; Start at 13:30 Insulin Aspart (Novolog Insulin Pen) NOVOLOG *MODERATE* ALGORITHM Q8 SC ; Start 05/20/16 at 14:00 Assessment/Plan Chief Complaint/Hosp Course IMPRESSION AND PLAN: 1. Status post Septic shock, likely secondary to urinary tract infection. Persistent leukocytosis, little better. 2. Chronic encephalopathy. 3. History of hemorrhagic cerebrovascular accident. 4. Vent dependent respiratory failure. 5. Severe metabolic acidosis. 6. Anemia likely of chronic disease plus hemodilution The patient will need: 1. Monitor H&H, consider transfusion 1 unit PRBCs 2. Gentle hydration 3. Broad spectrum antibiotics. 4. Deep venous thrombosis and gastrointestinal prophylaxis. 5. Intravenous bicarbonate needed 6. Tube feeding as tolerated Problems: JIMMY GONSALEZ MD, [facility] May 20, 2016 15:59
--- NOTE | 2016-05-20 16:40 | CONS ---
Date/Time of Note Date/Time of Note DATE: 05/20/16 TIME: 16:39 Assessment/Plan Assessment/Plan Chief Complaint/Hosp Course IMPRESSION: 1. Patient has idvas-bq-ghaefzn kidney disease. BETTER 2. Acute renal failure due to dehydration.BETTER 3. Underlying acute tubular necrosis due to sepsis.BETTER 4. Severe sepsis. 5. hypernatremia.better now hyponatremia 6. Free water deficit.BETTER 7. RES FAILURE 8. Lactic acidosis. 9. vdrf. 10. Anemia. 11. History of tracheostomy. 12 METABOLIC ACIDOSIS better PLAN CK LABS WATER G TUBE f/u lytes Problems: Consultation Date/Type/Reason Admit Date/Time May 04, 2016 at 05:51 Type of Consultation: RENAL Referring Provider: AMY HANKINS MD Exam/Review of Systems Vital Signs Vitals Vital Signs Date Time Temp Pulse Resp B/P Pulse Ox O2 Delivery O2 Flow Rate FiO2 05/20/16 16:09 92 28 99 30 05/20/16 15:26 99.4 97/59 Intake and Output 05/19/16 05/19/16 05/20/16 14:59 22:59 06:59 Intake Total 1120 ml 920 ml Output Total 1250 ml 1200 ml Balance -130 ml -280 ml Exam Eyes: nl conjunctiva ENMT: nl external ears & nose Neck: supple Respiratory: clear to auscultation Results Result Diagram: 05/19/16 0657 05/19/16 0657 Results 24 hrs Laboratory Tests Test 05/19/16 17:53 05/19/16 20:05 05/19/16 22:54 05/20/16 04:54 Bedside Glucose 133 129 116 92 Test 05/20/16 12:15 05/20/16 14:09 Bedside Glucose 106 106 Medications Medications Current Medications Morphine Sulfate (morphine) 2 mg Q4H PRN IV SEVERE PAIN LEVEL 7-10 Last administered on 05/07/16at 18:26; Admin Dose 2 MG; Start 05/04/16 at 07:30 Docusate Sodium (Colace) 100 mg Q12H PRN PO CONSTIPATION; Start 05/04/16 at 07 :30 Lorazepam (Ativan) 0.5 mg Q6H PRN IV ANXIETY Last administered on 05/06/16at 23 :58; Admin Dose 0.5 MG; Start 05/04/16 at 07:30 Hydralazine HCl (Apresoline) 10 mg Q6H PRN IV ELEVATED BLOOD PRESSURE; Start 05/04/16 at 07:30 Nitroglycerin (Nitroglycerin (Sl Tab) 0.4 Mg) 1 tab Q5M PRN SL ANGINA; Start 05/04/16 at 07:30 Acetaminophen (Tylenol Supp) 650 mg Q4 PRN [place] PAIN OR TEMP ABOVE 38C; Start at 07:30 Atorvastatin Calcium (Lipitor) 20 mg QHS GTB Last administered on 05/19/16at 20 :12; Admin Dose 20 MG; Start 05/04/16 at 21:00 Bisacodyl (Dulcolax Supp) 10 mg Q24H PRN [place] CONSTIPATION; Start 05/04/16 at 07 :30 Levetiracetam (Keppra Liquid) 1,000 mg Q12 GTB Last administered on 05/20/16at 08:16; Admin Dose 1,000 MG; Start 05/04/16 at 09:00 Multivitamins (Thera-Plus) 5 ml DAILY GTB Last administered on 05/20/16at 08:16 ; Admin Dose 5 ML; Start 05/04/16 at 09:00 Miscellaneous Information 1 ea NOTE XX ; Start 05/04/16 at 09:00 Glucose (Glutose) 15 gm Q15M PRN PO DECREASED GLUCOSE; Start 05/04/16 at 09:00 Glucose (Glutose) 22.5 gm Q15M PRN PO DECREASED GLUCOSE; Start 05/04/16 at 09: 00 Dextrose (D50w Syringe) 25 ml Q15M PRN IV DECREASED GLUCOSE; Start 05/04/16 at 09:00 Dextrose (D50w Syringe) 50 ml Q15M PRN IV DECREASED GLUCOSE; Start 05/04/16 at 09:00 Glucagon (Glucagen) 1 mg Q15M PRN IM DECREASED GLUCOSE; Start 05/04/16 at 09: 00 Glucose (Glutose) 15 gm Q15M PRN BUCCAL DECREASED GLUCOSE; Start 05/04/16 at 09:00 Acetaminophen (Tylenol Liquid) 650 mg Q6H PRN GTB PAIN LEVEL 1-3 OR FEVER Last administered on 05/20/16at 05:00; Admin Dose 650 MG; Start 05/04/16 at 18:30 Metronidazole (Flagyl) 500 mg Q8 GTB Last administered on 05/20/16 13:31; Admin Dose 500 MG; Start 05/05/16 at 14:00 Collagenase (Santyl) APPLY TO NECROTIC TISSUE DAILY TOP Last administered on 08:18; Admin Dose 1 APPLIC; Start 05/06/16 at 16:30 Collagenase (Santyl) APPLY TO NECROTIC AREA PRN PRN TOP SOILING; Start at 16:00 Aspirin 81 mg 81 mg DAILY GTB Last administered on 05/20/16 08:17; Admin Dose 81 MG; Start 05/10/16 at 09:00 Tigecycline/ Sodium Chloride (Tygacil/NS) 100 ml @ 200 mls/hr Q12 IVPB Last administered on 05/20/16 08:26; Admin Dose 200 MLS/HR; Start 05/10/16 at 06: 00 Ascorbic Acid (Vitamin C) 500 mg DAILY GTB Last administered on 05/20/16 08: 17; Admin Dose 500 MG; Start 05/10/16 at 11:00 Famotidine (Pepcid) 20 mg DAILY GTB Last administered on 05/20/16 08:17; Admin Dose 20 MG; Start 05/10/16 at 11:00 Acetaminophen/ Hydrocodone Bitart ([place] (5/325)) 1 tab Q6H PRN GTB MODERATE PAIN LEVEL 4-6; Start 05/10/16 at 13:30 Metoclopramide HCl (Reglan Liq) 10 mg Q6 GTB Last administered on 05/20/16 12 :16; Admin Dose 10 MG; Start 05/10/16 at 18:00 Hydralazine HCl (Apresoline) 25 mg Q8H GTB Last administered on 05/20/16 12: 16; Admin Dose 25 MG; Start 05/14/16 at 20:00 Insulin Glargine (Lantus) 14 unit QPM SC Last administered on 05/19/16at 20:18 ; Admin Dose 14 UNIT; Start 05/14/16 at 21:00 Citric Acid/ Sodium Citrate 30 ml 30 ml TID PO Last administered on 05/20/16 13:31; Admin Dose 30 ML; Start 05/15/16 at 21:00 Colistimethate Sodium/Sodium Chloride (Coly-Mycin/NS) 100 ml @ 50 mls/hr Q12 IVPB Last administered on 05/20/16at 09:31; Admin Dose 50 MLS/HR; Start at 13:30 Insulin Aspart (Novolog Insulin Pen) NOVOLOG *MODERATE* ALGORITHM Q8 SC ; Start 05/20/16 at 14:00 AMBER LIEBERMAN MD May 20, 2016 16:40
--- NOTE | 2016-05-20 19:00 | CONS ---
Date/Time of Note Date/Time of Note DATE: 05/20/16 TIME: 18:59 Consult Date/Type/Reason Admit Date/Time May 04, 2016 at 05:51 Type of Consultation: ID Ordering Provider: AMY HANKINS MD Subjective events noted, looks comfortable, no fevers, nad Objective Vital Signs Date Time Temp Pulse Resp B/P Pulse Ox O2 Delivery O2 Flow Rate FiO2 05/20/16 16:45 98 05/20/16 16:09 28 99 30 05/20/16 15:26 99.4 97/59 Intake and Output 05/19/16 05/19/16 05/20/16 15:00 23:00 07:00 Intake Total 1120 ml 920 ml Output Total 1250 ml 1200 ml Balance -130 ml -280 ml Results/Medications Result Diagram: 05/19/16 0657 05/19/16 0657 Results 24 hrs Laboratory Tests Test 05/19/16 20:05 05/19/16 22:54 05/20/16 04:54 05/20/16 12:15 Bedside Glucose 129 116 92 106 Test 05/20/16 14:09 Bedside Glucose 106 Medications Current Medications Morphine Sulfate (morphine) 2 mg Q4H PRN IV SEVERE PAIN LEVEL 7-10 Last administered on 05/07/16at 18:26; Admin Dose 2 MG; Start 05/04/16 at 07:30 Docusate Sodium (Colace) 100 mg Q12H PRN PO CONSTIPATION; Start 05/04/16 at 07 :30 Lorazepam (Ativan) 0.5 mg Q6H PRN IV ANXIETY Last administered on 05/06/16at 23 :58; Admin Dose 0.5 MG; Start 05/04/16 at 07:30 Hydralazine HCl (Apresoline) 10 mg Q6H PRN IV ELEVATED BLOOD PRESSURE; Start 05/04/16 at 07:30 Nitroglycerin (Nitroglycerin (Sl Tab) 0.4 Mg) 1 tab Q5M PRN SL ANGINA; Start 05/04/16 at 07:30 Acetaminophen (Tylenol Supp) 650 mg Q4 PRN [place] PAIN OR TEMP ABOVE 38C; Start at 07:30 Atorvastatin Calcium (Lipitor) 20 mg QHS GTB Last administered on 05/19/16at 20 :12; Admin Dose 20 MG; Start 05/04/16 at 21:00 Bisacodyl (Dulcolax Supp) 10 mg Q24H PRN [place] CONSTIPATION; Start 05/04/16 at 07 :30 Levetiracetam (Keppra Liquid) 1,000 mg Q12 GTB Last administered on 05/20/16at 08:16; Admin Dose 1,000 MG; Start 05/04/16 at 09:00 Multivitamins (Thera-Plus) 5 ml DAILY GTB Last administered on 05/20/16at 08:16 ; Admin Dose 5 ML; Start 05/04/16 at 09:00 Miscellaneous Information 1 ea NOTE XX ; Start 05/04/16 at 09:00 Glucose (Glutose) 15 gm Q15M PRN PO DECREASED GLUCOSE; Start 05/04/16 at 09:00 Glucose (Glutose) 22.5 gm Q15M PRN PO DECREASED GLUCOSE; Start 05/04/16 at 09: 00 Dextrose (D50w Syringe) 25 ml Q15M PRN IV DECREASED GLUCOSE; Start 05/04/16 at 09:00 Dextrose (D50w Syringe) 50 ml Q15M PRN IV DECREASED GLUCOSE; Start 05/04/16 at 09:00 Glucagon (Glucagen) 1 mg Q15M PRN IM DECREASED GLUCOSE; Start 05/04/16 at 09: 00 Glucose (Glutose) 15 gm Q15M PRN BUCCAL DECREASED GLUCOSE; Start 05/04/16 at 09:00 Acetaminophen (Tylenol Liquid) 650 mg Q6H PRN GTB PAIN LEVEL 1-3 OR FEVER Last administered on 05/20/16at 05:00; Admin Dose 650 MG; Start 05/04/16 at 18:30 Metronidazole (Flagyl) 500 mg Q8 GTB Last administered on 05/20/16at 13:31; Admin Dose 500 MG; Start 05/05/16 at 14:00 Collagenase (Santyl) APPLY TO NECROTIC TISSUE DAILY TOP Last administered on at 08:18; Admin Dose 1 APPLIC; Start 05/06/16 at 16:30 Collagenase (Santyl) APPLY TO NECROTIC AREA PRN PRN TOP SOILING; Start at 16:00 Aspirin 81 mg 81 mg DAILY GTB Last administered on 05/20/16at 08:17; Admin Dose 81 MG; Start 05/10/16 at 09:00 Tigecycline/ Sodium Chloride (Tygacil/NS) 100 ml @ 200 mls/hr Q12 IVPB Last administered on 05/20/16at 08:26; Admin Dose 200 MLS/HR; Start 05/10/16 at 06: 00 Ascorbic Acid (Vitamin C) 500 mg DAILY GTB Last administered on 05/20/16 08: 17; Admin Dose 500 MG; Start 05/10/16 at 11:00 Famotidine (Pepcid) 20 mg DAILY GTB Last administered on 05/20/16at 08:17; Admin Dose 20 MG; Start 05/10/16 at 11:00 Acetaminophen/ Hydrocodone Bitart ([place] (5/325)) 1 tab Q6H PRN GTB MODERATE PAIN LEVEL 4-6; Start 05/10/16 at 13:30 Metoclopramide HCl (Reglan Liq) 10 mg Q6 GTB Last administered on 05/20/16at 17 :37; Admin Dose 10 MG; Start 05/10/16 at 18:00 Hydralazine HCl (Apresoline) 25 mg Q8H GTB Last administered on 05/20/16at 12: 16; Admin Dose 25 MG; Start 05/14/16 at 20:00 Insulin Glargine (Lantus) 14 unit QPM SC Last administered on 05/19/16at 20:18 ; Admin Dose 14 UNIT; Start 05/14/16 at 21:00 Citric Acid/ Sodium Citrate 30 ml 30 ml TID PO Last administered on 05/20/16at 13:31; Admin Dose 30 ML; Start 05/15/16 at 21:00 Colistimethate Sodium/Sodium Chloride (Coly-Mycin/NS) 100 ml @ 50 mls/hr Q12 IVPB Last administered on 05/20/16 09:31; Admin Dose 50 MLS/HR; Start at 13:30 Insulin Aspart (Novolog Insulin Pen) NOVOLOG *MODERATE* ALGORITHM Q8 SC ; Start 05/20/16 at 14:00 Assessment/Plan Chief Complaint/Hosp Course INDWELLINGS: Trach, PEG, [place], DEF[employer]IVING [employer]CTOR shunt. ANTIMICROBIALS: Tygacil, Flagyl Colistin PHYSICAL EXAMINATION: GENERAL: This is a chronically ill-appearing, middle-aged woman who is obtunded in no distress. HEENT: Head atraumatic, normocephalic. Sclerae anicteric. Buccal mucosa dry. NECK: Supple. Tracheostomy present. CHEST: Rise symmetrical. Breath sounds diminished at the bases. HEART: S1, S2. ABDOMEN: Soft, bowel tones present. EXTREMITIES: Without cyanosis. ASSESSMENT: 1. S/p sepsis with shock. 2. Clostridium difficile colitis. 3. Unstageable sacral decubitus, possible osteomyelitis with a history of multiple debridements. 4. History of methicillin-resistant Staphylococcus aureus infected ventriculoperitoneal shunt removal with new DEFENSIVE DRIVING INSTRUCTOR shunt placement. 5. Seizure disorder. 6. Chronic encephalopathy. 7. Urinary tract infection===> MDRO. PLAN: Clinically unchanged, repeat urine cx growing GNR==>statrted on IV Colistin, continue local wound care, pending placement [facility] staff Problems: DUTCH STEELE NP May 20, 2016 19:00
[2016-05-20] MEDS: ATORVASTATIN 20 MG TAB GTB SCH (22:57)
[2016-05-20] MEDS: INSULIN GLARGINE [LANtus] 3 ML PEN SC SCH (23:06)
[2016-05-21] VITALS (23 sets, daily range): BP systolic 101–116; BP diastolic 56–62; PULSE 89–105; RESP 14–20
[2016-05-21] MEDS: METOCLOPRAMIDE (1 MG/ML) 10 ML CUP GTB SCH ×4 (02:32→17:45)
[2016-05-21] MEDS: metroNIDAZOLE 500 MG TAB GTB SCH ×3 (05:51→22:21)
[2016-05-21] MEDS: INSULIN ASPART [NOVOLOG] 3 ML PEN SC SCH ×3 (06:00→22:00)
[2016-05-21 07:25] LABS: POTASSIUM 4.3 mmol/L (3.5-5.1)
[2016-05-21 07:27] LABS: CREATININE 0.94 mg/dl (0.44-1.00)
[2016-05-21 07:28] LABS: CALCIUM 7.4 mg/dl (8.4-10.2)
[2016-05-21] MEDS: CITRIC ACID/NA CITRATE 30 ML CUP PO SCH ×3 (09:04→22:03)
[2016-05-21] MEDS: ASCORBIC ACID 500 MG TAB GTB SCH (09:04)
[2016-05-21] MEDS: LEVETIRACETAM (100 MG/ML) 5ML CUP GTB SCH ×2 (09:04→22:03)
[2016-05-21] MEDS: ASPIRIN 81 MG TAB GTB SCH (09:04)
[2016-05-21] MEDS: MULTIVITAMINS 5 ML CUP GTB SCH (09:04)
[2016-05-21] MEDS: FAMOTIDINE 20 MG TAB GTB SCH (09:04)
[2016-05-21] MEDS: TIGECYCLINE 50 MG in SOD CHLORIDE 0.9% 100 ML IVPB SCH (09:05)
[2016-05-21] MEDS: COLLAGENASE 30 GM TUBE TOP SCH (09:05)
[2016-05-21] MEDS: COLISTIMETHATE 75 MG in SOD CHLORIDE 0.9% 100 ML IVPB SCH ×2 (09:05→22:03)
--- NOTE | 2016-05-21 13:54 | CONS ---
Date/Time of Note Date/Time of Note DATE: 05/21/16 TIME: 13:51 Consult Date/Type/Reason Admit Date/Time May 04, 2016 at 05:51 Type of Consultation: pulmonary Ordering Provider: AMY HANKINS MD Subjective Patient remained stable no significant changes Objective Vital Signs Date Time Temp Pulse Resp B/P Pulse Ox O2 Delivery O2 Flow Rate FiO2 05/21/16 12:41 98.6 95 18 110/58 98 05/21/16 11:34 30 05/21/16 04:00 Mechanical Ventilator Trach Collar Intake and Output 05/20/16 05/20/16 05/21/16 15:00 23:00 07:00 Intake Total 1120 ml 840 ml Output Total 1050 ml 950 ml Balance 70 ml -110 ml PHYSICAL EXAMINATION GENERAL: Chronically ill-appearing lady comfortable at rest VITAL SIGNS: see below. HEENT: Pupils equal, round, and reactive to light. Tracheostomy site clean and intact. CARDIAC: S1, S2, CHEST: Diminished air entry bilaterally. ABDOMEN: Mildly distended. No bowel sounds. EXTREMITIES: No cyanosis, clubbing, edema +1 NEUROLOGIC: Generalized weakness Results/Medications Result Diagram: 05/19/16 0657 05/21/16 0609 Results 24 hrs Laboratory Tests Test 05/20/16 14:09 05/20/16 22:54 05/21/16 06:05 05/21/16 06:09 Bedside Glucose 106 99 80 Anion Gap 12 Blood Urea Nitrogen 25 H Calcium Level 7.4 L Carbon Dioxide Level 22 Chloride Level 108 Creatinine 0.94 Glucose Level 54 #L Potassium Level 4.3 Sodium Level 138 Medications Current Medications Morphine Sulfate (morphine) 2 mg Q4H PRN IV SEVERE PAIN LEVEL 7-10 Last administered on 05/07/16at 18:26; Admin Dose 2 MG; Start 05/04/16 at 07:30 Docusate Sodium (Colace) 100 mg Q12H PRN PO CONSTIPATION; Start 05/04/16 at 07 :30 Lorazepam (Ativan) 0.5 mg Q6H PRN IV ANXIETY Last administered on 05/06/16at 23 :58; Admin Dose 0.5 MG; Start 05/04/16 at 07:30 Hydralazine HCl (Apresoline) 10 mg Q6H PRN IV ELEVATED BLOOD PRESSURE; Start 05/04/16 at 07:30 Nitroglycerin (Nitroglycerin (Sl Tab) 0.4 Mg) 1 tab Q5M PRN SL ANGINA; Start 05/04/16 at 07:30 Acetaminophen (Tylenol Supp) 650 mg Q4 PRN [place] PAIN OR TEMP ABOVE 38C; Start at 07:30 Atorvastatin Calcium (Lipitor) 20 mg QHS GTB Last administered on 05/20/16at 22 :57; Admin Dose 20 MG; Start 05/04/16 at 21:00 Bisacodyl (Dulcolax Supp) 10 mg Q24H PRN [place] CONSTIPATION; Start 05/04/16 at 07 :30 Levetiracetam (Keppra Liquid) 1,000 mg Q12 GTB Last administered on 05/21/16at 09:04; Admin Dose 1,000 MG; Start 05/04/16 at 09:00 Multivitamins (Thera-Plus) 5 ml DAILY GTB Last administered on 05/21/16at 09:04 ; Admin Dose 5 ML; Start 05/04/16 at 09:00 Miscellaneous Information 1 ea NOTE XX ; Start 05/04/16 at 09:00 Glucose (Glutose) 15 gm Q15M PRN PO DECREASED GLUCOSE; Start 05/04/16 at 09:00 Glucose (Glutose) 22.5 gm Q15M PRN PO DECREASED GLUCOSE; Start 05/04/16 at 09: 00 Dextrose (D50w Syringe) 25 ml Q15M PRN IV DECREASED GLUCOSE; Start 05/04/16 at 09:00 Dextrose (D50w Syringe) 50 ml Q15M PRN IV DECREASED GLUCOSE; Start 05/04/16 at 09:00 Glucagon (Glucagen) 1 mg Q15M PRN IM DECREASED GLUCOSE; Start 05/04/16 at 09: 00 Glucose (Glutose) 15 gm Q15M PRN BUCCAL DECREASED GLUCOSE; Start 05/04/16 at 09:00 Acetaminophen (Tylenol Liquid) 650 mg Q6H PRN GTB PAIN LEVEL 1-3 OR FEVER Last administered on 05/20/16at 05:00; Admin Dose 650 MG; Start 05/04/16 at 18:30 Metronidazole (Flagyl) 500 mg Q8 GTB Last administered on 05/21/16at 05:51; Admin Dose 500 MG; Start 05/05/16 at 14:00 Collagenase (Santyl) APPLY TO NECROTIC TISSUE DAILY TOP Last administered on 09:05; Admin Dose 1 APPLIC; Start 05/06/16 at 16:30 Collagenase (Santyl) APPLY TO NECROTIC AREA PRN PRN [place] SOILING; Start at 16:00 Aspirin 81 mg 81 mg DAILY GTB Last administered on 05/21/16 09:04; Admin Dose 81 MG; Start 05/10/16 at 09:00 Tigecycline/ Sodium Chloride (Tygacil/NS) 100 ml @ 200 mls/hr Q12 IVPB Last administered on 05/21/16 09:05; Admin Dose 200 MLS/HR; Start 05/10/16 at 06: 00 Ascorbic Acid (Vitamin C) 500 mg DAILY GTB Last administered on 05/21/16 09: 04; Admin Dose 500 MG; Start 05/10/16 at 11:00 Famotidine (Pepcid) 20 mg DAILY GTB Last administered on 05/21/16 09:04; Admin Dose 20 MG; Start 05/10/16 at 11:00 Acetaminophen/ Hydrocodone Bitart ([place] (5/325)) 1 tab Q6H PRN GTB MODERATE PAIN LEVEL 4-6; Start 05/10/16 at 13:30 Metoclopramide HCl (Reglan Liq) 10 mg Q6 GTB Last administered on 05/21/16 12 :49; Admin Dose 10 MG; Start 05/10/16 at 18:00 Hydralazine HCl (Apresoline) 25 mg Q8H GTB Last administered on 05/21/16 12: 49; Admin Dose 25 MG; Start 05/14/16 at 20:00 Insulin Glargine (Lantus) 14 unit QPM SC Last administered on 05/20/16 23:06 ; Admin Dose 14 UNIT; Start 05/14/16 at 21:00 Citric Acid/ Sodium Citrate 30 ml 30 ml TID PO Last administered on 05/21/16 12:49; Admin Dose 30 ML; Start 05/15/16 at 21:00 Colistimethate Sodium/Sodium Chloride (Coly-Mycin/NS) 100 ml @ 50 mls/hr Q12 IVPB Last administered on 05/21/16 09:05; Admin Dose 50 MLS/HR; Start at 13:30 Insulin Aspart (Novolog Insulin Pen) NOVOLOG *MODERATE* ALGORITHM Q8 SC ; Start 05/20/16 at 14:00 Assessment/Plan Chief Complaint/Hosp Course IMPRESSION AND PLAN: 1. Status post Septic shock, likely secondary to urinary tract infection. Improving leukocytosis 2. Chronic encephalopathy. 3. History of hemorrhagic cerebrovascular accident. 4. Vent dependent respiratory failure. 5. Severe metabolic acidosis. 6. Anemia likely of chronic disease plus hemodilution 7. VRE wound The patient will need: 1. Monitor H&H, consider transfusion 1 unit PRBCs 2. Gentle hydration 3. Broad spectrum antibiotics. 4. Deep venous thrombosis and gastrointestinal prophylaxis. 5. Intravenous bicarbonate needed 6. Tube feeding as tolerated Problems: JIMMY GONSALEZ MD, [facility] May 21, 2016 13:54
--- NOTE | 2016-05-21 14:10 | PN ---
Date/Time of Note Date/Time of Note DATE: 05/21/16 TIME: 14:10 Assessment/Plan VTE Prophylaxis VTE Prophylaxis Intervention: SCD's Lines/Catheters IV Catheter Type (from Nrs): Peripheral IV Urinary Cath still in place: Yes Reason Cath still needed: other (indicate) Assessment/Plan Chief Complaint/Hosp Course ASSESSMENT AND PLAN: 1. Sepsis, likely secondary to urinary tract infection versus sacral decubitus. The patient has been started on Tygacil , flagyl, and V.fend as per ID recommendations . Follow up infectious disease recommendations. 2. Ventilator-dependent respiratory failure, status post trach. Pulmonology has been consulted. 3. Acute renal insufficiency, improving status post IVF, likely secondary to sepsis versus dehydration. nephrology consulted. Continue IV fluids. 4. Diabetes mellitus. Continue sliding scale and Lantus. 5. History of cerebrovascular accident. No acute issues at this time. Patient is bed bound and a phasic Unstageable sacral decubitus, possible osteomyelitis with a history of multiple debridements. 6. 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 7. Seizure disorder. 8. Chronic encephalopathy. 9. Urinary tract infection===> MDRO, urine culture KLEB PNEUMONIAE CARBAPENEMASE, follow up in infectious disease recommendations 10. Essential Hypertension, continue to monitor restart blood pressure medications cautiously 11. C. difficile toxin, repeat stool negative for C. difficile , follow-up ID recommendations to discontinue Flagyl 12. Hypokalemia, repleted 13. Hypernatremia, resolved We will continue monitor patient closely for recommendation management treatment as per clinical course Condition guarded Continue to monitor in telemetry floor Plan to discharge to care home facility when bed is available We will follow up with infectious disease physician regarding isolation status and discharge Problems: Subjective 24 Hr Interval Summary Free Text/Dictation No acute changes Patient tolerating PEG tube feeding Exam/Review of Systems Vital Signs Vitals Vital Signs Date Time Temp Pulse Resp B/P Pulse Ox O2 Delivery O2 Flow Rate FiO2 05/21/16 12:41 98.6 95 18 110/58 98 05/21/16 11:34 30 05/21/16 04:00 Mechanical Ventilator Trach Collar Intake and Output 05/20/16 05/20/16 05/21/16 15:00 23:00 07:00 Intake Total 1120 ml 840 ml Output Total 1050 ml 950 ml Balance 70 ml -110 ml Exam General: The patient is a phasic, on vent via trach, does not respond to any pain or verbal stimuli HEENT: Atraumatic, normocephalic. The pupils are equal Neck: Supple , trach in place Chest: Normal Lungs: Decreased breath sounds bilateral lower lung field, positive crackles Heart: Normal S1-S2, Regular rhythm and rate. Abdomen: Soft , nontender, nondistended , bowel sounds are present. PEG tube in place Extremities: Flaccid, + 2 edema no cyanosis Neurologic: No meaningful neurologic examination findings Skin: Stage IV sacral decubitus Results Result Diagram: 05/19/16 0657 05/21/16 0609 Results 24 hrs Laboratory Tests Test 05/20/16 22:54 05/21/16 06:05 05/21/16 06:09 05/21/16 13:58 Bedside Glucose 99 80 101 Anion Gap 12 Blood Urea Nitrogen 25 H Calcium Level 7.4 L Carbon Dioxide Level 22 Chloride Level 108 Creatinine 0.94 Glucose Level 54 #L Potassium Level 4.3 Sodium Level 138 Medications Medications Current Medications Morphine Sulfate (morphine) 2 mg Q4H PRN IV SEVERE PAIN LEVEL 7-10 Last administered on 05/07/16at 18:26; Admin Dose 2 MG; Start 05/04/16 at 07:30 Docusate Sodium (Colace) 100 mg Q12H PRN PO CONSTIPATION; Start 05/04/16 at 07 :30 Lorazepam (Ativan) 0.5 mg Q6H PRN IV ANXIETY Last administered on 05/06/16at 23 :58; Admin Dose 0.5 MG; Start 05/04/16 at 07:30 Hydralazine HCl (Apresoline) 10 mg Q6H PRN IV ELEVATED BLOOD PRESSURE; Start 05/04/16 at 07:30 Nitroglycerin (Nitroglycerin (Sl Tab) 0.4 Mg) 1 tab Q5M PRN SL ANGINA; Start 05/04/16 at 07:30 Acetaminophen (Tylenol Supp) 650 mg Q4 PRN [place] PAIN OR TEMP ABOVE 38C; Start at 07:30 Atorvastatin Calcium (Lipitor) 20 mg QHS GTB Last administered on 05/20/16at 22 :57; Admin Dose 20 MG; Start 05/04/16 at 21:00 Bisacodyl (Dulcolax Supp) 10 mg Q24H PRN [place] CONSTIPATION; Start 05/04/16 at 07 :30 Levetiracetam (Keppra Liquid) 1,000 mg Q12 GTB Last administered on 05/21/16at 09:04; Admin Dose 1,000 MG; Start 05/04/16 at 09:00 Multivitamins (Thera-Plus) 5 ml DAILY GTB Last administered on 05/21/16at 09:04 ; Admin Dose 5 ML; Start 05/04/16 at 09:00 Miscellaneous Information 1 ea NOTE XX ; Start 05/04/16 at 09:00 Glucose (Glutose) 15 gm Q15M PRN PO DECREASED GLUCOSE; Start 05/04/16 at 09:00 Glucose (Glutose) 22.5 gm Q15M PRN PO DECREASED GLUCOSE; Start 05/04/16 at 09: 00 Dextrose (D50w Syringe) 25 ml Q15M PRN IV DECREASED GLUCOSE; Start 05/04/16 at 09:00 Dextrose (D50w Syringe) 50 ml Q15M PRN IV DECREASED GLUCOSE; Start 05/04/16 at 09:00 Glucagon (Glucagen) 1 mg Q15M PRN IM DECREASED GLUCOSE; Start 05/04/16 at 09: 00 Glucose (Glutose) 15 gm Q15M PRN BUCCAL DECREASED GLUCOSE; Start 05/04/16 at 09:00 Acetaminophen (Tylenol Liquid) 650 mg Q6H PRN GTB PAIN LEVEL 1-3 OR FEVER Last administered on 05/20/16at 05:00; Admin Dose 650 MG; Start 05/04/16 at 18:30 Metronidazole (Flagyl) 500 mg Q8 GTB Last administered on 05/21/16at 13:58; Admin Dose 500 MG; Start 05/05/16 at 14:00 Collagenase (Santyl) APPLY TO NECROTIC TISSUE DAILY TOP Last administered on at 09:05; Admin Dose 1 APPLIC; Start 05/06/16 at 16:30 Collagenase (Santyl) APPLY TO NECROTIC AREA PRN PRN TOP SOILING; Start at 16:00 Aspirin 81 mg 81 mg DAILY GTB Last administered on 05/21/16at 09:04; Admin Dose 81 MG; Start 05/10/16 at 09:00 Tigecycline/ Sodium Chloride (Tygacil/NS) 100 ml @ 200 mls/hr Q12 IVPB Last administered on 05/21/16 09:05; Admin Dose 200 MLS/HR; Start 05/10/16 at 06: 00 Ascorbic Acid (Vitamin C) 500 mg DAILY GTB Last administered on 05/21/16 09: 04; Admin Dose 500 MG; Start 05/10/16 at 11:00 Famotidine (Pepcid) 20 mg DAILY GTB Last administered on 05/21/16 09:04; Admin Dose 20 MG; Start 05/10/16 at 11:00 Acetaminophen/ Hydrocodone Bitart ([place] (5/325)) 1 tab Q6H PRN GTB MODERATE PAIN LEVEL 4-6; Start 05/10/16 at 13:30 Metoclopramide HCl (Reglan Liq) 10 mg Q6 GTB Last administered on 05/21/16at 12 :49; Admin Dose 10 MG; Start 05/10/16 at 18:00 Hydralazine HCl (Apresoline) 25 mg Q8H GTB Last administered on 05/21/16at 12: 49; Admin Dose 25 MG; Start 05/14/16 at 20:00 Insulin Glargine (Lantus) 14 unit QPM SC Last administered on 05/20/16 23:06 ; Admin Dose 14 UNIT; Start 05/14/16 at 21:00 Citric Acid/ Sodium Citrate 30 ml 30 ml TID PO Last administered on 05/21/16at 12:49; Admin Dose 30 ML; Start 05/15/16 at 21:00 Colistimethate Sodium/Sodium Chloride (Coly-Mycin/NS) 100 ml @ 50 mls/hr Q12 IVPB Last administered on 05/21/16 09:05; Admin Dose 50 MLS/HR; Start at 13:30 Insulin Aspart (Novolog Insulin Pen) NOVOLOG *MODERATE* ALGORITHM Q8 SC ; Start 05/20/16 at 14:00 AMY HANKINS MD May 21, 2016 14:10
[2016-05-21] MEDS: DAPTOMYCIN 540 MG in SOD CHLORIDE 0.9% 100 ML IVPB SCH (16:17)
--- NOTE | 2016-05-21 16:39 | CONS ---
Date/Time of Note Date/Time of Note DATE: 05/21/16 TIME: 16:37 Consult Date/Type/Reason Admit Date/Time May 04, 2016 at 05:51 Type of Consultation: ID Ordering Provider: AMY HANKINS MD Objective Vital Signs Date Time Temp Pulse Resp B/P Pulse Ox O2 Delivery O2 Flow Rate FiO2 05/21/16 15:49 13 16 100 30 05/21/16 12:41 98.6 110/58 05/21/16 04:00 Mechanical Ventilator Trach Collar Intake and Output 05/20/16 05/20/16 05/21/16 15:00 23:00 07:00 Intake Total 1120 ml 840 ml Output Total 1050 ml 950 ml Balance 70 ml -110 ml Results/Medications Result Diagram: 05/19/16 0657 05/21/16 0609 Results 24 hrs Laboratory Tests Test 05/20/16 22:54 05/21/16 06:05 05/21/16 06:09 05/21/16 13:58 Bedside Glucose 99 80 101 Anion Gap 12 Blood Urea Nitrogen 25 H Calcium Level 7.4 L Carbon Dioxide Level 22 Chloride Level 108 Creatinine 0.94 Glucose Level 54 #L Potassium Level 4.3 Sodium Level 138 Medications Current Medications Morphine Sulfate (morphine) 2 mg Q4H PRN IV SEVERE PAIN LEVEL 7-10 Last administered on 05/07/16at 18:26; Admin Dose 2 MG; Start 05/04/16 at 07:30 Docusate Sodium (Colace) 100 mg Q12H PRN PO CONSTIPATION; Start 05/04/16 at 07 :30 Lorazepam (Ativan) 0.5 mg Q6H PRN IV ANXIETY Last administered on 05/06/16at 23 :58; Admin Dose 0.5 MG; Start 05/04/16 at 07:30 Hydralazine HCl (Apresoline) 10 mg Q6H PRN IV ELEVATED BLOOD PRESSURE; Start 05/04/16 at 07:30 Nitroglycerin (Nitroglycerin (Sl Tab) 0.4 Mg) 1 tab Q5M PRN SL ANGINA; Start 05/04/16 at 07:30 Acetaminophen (Tylenol Supp) 650 mg Q4 PRN [place] PAIN OR TEMP ABOVE 38C; Start at 07:30 Atorvastatin Calcium (Lipitor) 20 mg QHS GTB Last administered on 05/20/16at 22 :57; Admin Dose 20 MG; Start 05/04/16 at 21:00 Bisacodyl (Dulcolax Supp) 10 mg Q24H PRN [place] CONSTIPATION; Start 05/04/16 at 07 :30 Levetiracetam (Keppra Liquid) 1,000 mg Q12 GTB Last administered on 05/21/16at 09:04; Admin Dose 1,000 MG; Start 05/04/16 at 09:00 Multivitamins (Thera-Plus) 5 ml DAILY GTB Last administered on 05/21/16at 09:04 ; Admin Dose 5 ML; Start 05/04/16 at 09:00 Miscellaneous Information 1 ea NOTE XX ; Start 05/04/16 at 09:00 Glucose (Glutose) 15 gm Q15M PRN PO DECREASED GLUCOSE; Start 05/04/16 at 09:00 Glucose (Glutose) 22.5 gm Q15M PRN PO DECREASED GLUCOSE; Start 05/04/16 at 09: 00 Dextrose (D50w Syringe) 25 ml Q15M PRN IV DECREASED GLUCOSE; Start 05/04/16 at 09:00 Dextrose (D50w Syringe) 50 ml Q15M PRN IV DECREASED GLUCOSE; Start 05/04/16 at 09:00 Glucagon (Glucagen) 1 mg Q15M PRN IM DECREASED GLUCOSE; Start 05/04/16 at 09: 00 Glucose (Glutose) 15 gm Q15M PRN BUCCAL DECREASED GLUCOSE; Start 05/04/16 at 09:00 Acetaminophen (Tylenol Liquid) 650 mg Q6H PRN GTB PAIN LEVEL 1-3 OR FEVER Last administered on 05/20/16at 05:00; Admin Dose 650 MG; Start 05/04/16 at 18:30 Metronidazole (Flagyl) 500 mg Q8 GTB Last administered on 05/21/16at 13:58; Admin Dose 500 MG; Start 05/05/16 at 14:00 Collagenase (Santyl) APPLY TO NECROTIC TISSUE DAILY TOP Last administered on at 09:05; Admin Dose 1 APPLIC; Start 05/06/16 at 16:30 Collagenase (Santyl) APPLY TO NECROTIC AREA PRN PRN TOP SOILING; Start at 16:00 Aspirin (Aspirin) 81 mg DAILY GTB Last administered on 05/21/16at 09:04; Admin Dose 81 MG; Start 05/10/16 at 09:00 Ascorbic Acid (Vitamin C) 500 mg DAILY GTB Last administered on 05/21/16at 09: 04; Admin Dose 500 MG; Start 05/10/16 at 11:00 Famotidine (Pepcid) 20 mg DAILY GTB Last administered on 05/21/16 09:04; Admin Dose 20 MG; Start 05/10/16 at 11:00 Acetaminophen/ Hydrocodone Bitart ([place] (5/325)) 1 tab Q6H PRN GTB MODERATE PAIN LEVEL 4-6; Start 05/10/16 at 13:30 Metoclopramide HCl (Reglan Liq) 10 mg Q6 GTB Last administered on 05/21/16at 12 :49; Admin Dose 10 MG; Start 05/10/16 at 18:00 Hydralazine HCl (Apresoline) 25 mg Q8H GTB Last administered on 05/21/16at 12: 49; Admin Dose 25 MG; Start 05/14/16 at 20:00 Insulin Glargine (Lantus) 14 unit QPM SC Last administered on 05/20/16at 23:06 ; Admin Dose 14 UNIT; Start 05/14/16 at 21:00 Citric Acid/ Sodium Citrate 30 ml 30 ml TID PO Last administered on 05/21/16at 12:49; Admin Dose 30 ML; Start 05/15/16 at 21:00 Colistimethate Sodium/Sodium Chloride (Coly-Mycin/NS) 100 ml @ 50 mls/hr Q12 IVPB Last administered on 05/21/16at 09:05; Admin Dose 50 MLS/HR; Start at 13:30 Insulin Aspart NOVOLOG *MODERATE* ALGORITHM Q8 SC ; Start 05/20/16 at 14:00 Daptomycin/Sodium Chloride (Cubicin/NS) 100 ml @ 200 mls/hr Q24H IVPB Last administered on 05/21/16 16:17; Admin Dose 200 MLS/HR; Start 05/21/16 at 14: 30 Assessment/Plan Chief Complaint/Hosp Course INDWELLINGS: Trach, PEG, Reynolds, [employer] shunt. ANTIMICROBIALS: Daptomycin Flagyl Colistin PHYSICAL EXAMINATION: GENERAL: This is a chronically ill-appearing, middle-aged woman who is obtunded in no distress. HEENT: Head atraumatic, normocephalic. Sclerae anicteric. Buccal mucosa dry. NECK: Supple. Tracheostomy present. CHEST: Rise symmetrical. Breath sounds diminished at the bases. HEART: S1, S2. ABDOMEN: Soft, bowel tones present. EXTREMITIES: Without cyanosis. ASSESSMENT: 1. S/p sepsis with shock. 2. Clostridium difficile colitis. 3. Unstageable sacral decubitus, possible osteomyelitis with a history of multiple debridements. 4. 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 5. Seizure disorder. 6. Chronic encephalopathy. 7. Urinary tract infection===> MDRO. PLAN: Clinically unchanged, repeat urine cx growing GNR==>started on IV Colistin , continue local wound care, pending placement [facility] staff Problems: DUTCH STEELE NP May 21, 2016 16:39
--- NOTE | 2016-05-21 18:25 | CONS ---
Date/Time of Note Date/Time of Note DATE: 05/21/16 TIME: 18:24 Assessment/Plan Assessment/Plan Chief Complaint/Hosp Course IMPRESSION: 1. Patient has [id number] kidney disease. BETTER 2. Acute renal failure due to dehydration.BETTER 3. Underlying acute tubular necrosis due to sepsis.BETTER 4. Severe sepsis. 5. hypernatremia.better now hyponatremia 6. Free water deficit.BETTER 7. RES FAILURE 8. Lactic acidosis.BETTER 9. vdrf. 10. Anemia. 11. History of tracheostomy. 12 METABOLIC ACIDOSIS better PLAN CK LABS WATER G TUBE f/u lytes Problems: Consultation Date/Type/Reason Admit Date/Time May 04, 2016 at 05:51 Type of Consultation: RENAL Referring Provider: AMY HANKINS MD 24 HR Interval Summary Subjective hx not possible: pt non-verbal Exam/Review of Systems Vital Signs Vitals Vital Signs Date Time Temp Pulse Resp B/P Pulse Ox O2 Delivery O2 Flow Rate FiO2 05/21/16 17:31 102 14 99 30 05/21/16 17:06 98.6 101/56 05/21/16 04:00 Mechanical Ventilator Trach Collar Intake and Output 05/20/16 05/20/16 05/21/16 15:00 23:00 07:00 Intake Total 1120 ml 840 ml Output Total 1050 ml 950 ml Balance 70 ml -110 ml Exam Respiratory: clear to auscultation Cardiovascular: regular rate and rhythm Gastrointestinal: soft Extremities: edema (+) Results Result Diagram: 05/19/16 0657 05/21/16 0609 Results 24 hrs Laboratory Tests Test 05/20/16 22:54 05/21/16 06:05 05/21/16 06:09 05/21/16 13:58 Bedside Glucose 99 80 101 Anion Gap 12 Blood Urea Nitrogen 25 H Calcium Level 7.4 L Carbon Dioxide Level 22 Chloride Level 108 Creatinine 0.94 Glucose Level 54 #L Potassium Level 4.3 Sodium Level 138 Medications Medications Current Medications Morphine Sulfate (morphine) 2 mg Q4H PRN IV SEVERE PAIN LEVEL 7-10 Last administered on 05/07/16at 18:26; Admin Dose 2 MG; Start 05/04/16 at 07:30 Docusate Sodium (Colace) 100 mg Q12H PRN PO CONSTIPATION; Start 05/04/16 at 07 :30 Lorazepam (Ativan) 0.5 mg Q6H PRN IV ANXIETY Last administered on 05/06/16at 23 :58; Admin Dose 0.5 MG; Start 05/04/16 at 07:30 Hydralazine HCl (Apresoline) 10 mg Q6H PRN IV ELEVATED BLOOD PRESSURE; Start 05/04/16 at 07:30 Nitroglycerin (Nitroglycerin (Sl Tab) 0.4 Mg) 1 tab Q5M PRN SL ANGINA; Start 05/04/16 at 07:30 Acetaminophen (Tylenol Supp) 650 mg Q4 PRN [place] PAIN OR TEMP ABOVE 38C; Start at 07:30 Atorvastatin Calcium (Lipitor) 20 mg QHS GTB Last administered on 05/20/16at 22 :57; Admin Dose 20 MG; Start 05/04/16 at 21:00 Bisacodyl (Dulcolax Supp) 10 mg Q24H PRN [place] CONSTIPATION; Start 05/04/16 at 07 :30 Levetiracetam (Keppra Liquid) 1,000 mg Q12 GTB Last administered on 05/21/16at 09:04; Admin Dose 1,000 MG; Start 05/04/16 at 09:00 Multivitamins (Thera-Plus) 5 ml DAILY GTB Last administered on 05/21/16at 09:04 ; Admin Dose 5 ML; Start 05/04/16 at 09:00 Miscellaneous Information 1 ea NOTE XX ; Start 05/04/16 at 09:00 Glucose (Glutose) 15 gm Q15M PRN PO DECREASED GLUCOSE; Start 05/04/16 at 09:00 Glucose (Glutose) 22.5 gm Q15M PRN PO DECREASED GLUCOSE; Start 05/04/16 at 09: 00 Dextrose (D50w Syringe) 25 ml Q15M PRN IV DECREASED GLUCOSE; Start 05/04/16 at 09:00 Dextrose (D50w Syringe) 50 ml Q15M PRN IV DECREASED GLUCOSE; Start 05/04/16 at 09:00 Glucagon (Glucagen) 1 mg Q15M PRN IM DECREASED GLUCOSE; Start 05/04/16 at 09: 00 Glucose (Glutose) 15 gm Q15M PRN BUCCAL DECREASED GLUCOSE; Start 05/04/16 at 09:00 Acetaminophen (Tylenol Liquid) 650 mg Q6H PRN GTB PAIN LEVEL 1-3 OR FEVER Last administered on 05/20/16 05:00; Admin Dose 650 MG; Start 05/04/16 at 18:30 Metronidazole (Flagyl) 500 mg Q8 GTB Last administered on 05/21/16at 13:58; Admin Dose 500 MG; Start 05/05/16 at 14:00 Collagenase (Santyl) APPLY TO NECROTIC TISSUE DAILY TOP Last administered on at 09:05; Admin Dose 1 APPLIC; Start 05/06/16 at 16:30 Collagenase (Santyl) APPLY TO NECROTIC AREA PRN PRN TOP SOILING; Start at 16:00 Aspirin (Aspirin) 81 mg DAILY GTB Last administered on 05/21/16at 09:04; Admin Dose 81 MG; Start 05/10/16 at 09:00 Ascorbic Acid (Vitamin C) 500 mg DAILY GTB Last administered on 05/21/16 09: 04; Admin Dose 500 MG; Start 05/10/16 at 11:00 Famotidine (Pepcid) 20 mg DAILY GTB Last administered on 05/21/16at 09:04; Admin Dose 20 MG; Start 05/10/16 at 11:00 Acetaminophen/ Hydrocodone Bitart ([place] (5/325)) 1 tab Q6H PRN GTB MODERATE PAIN LEVEL 4-6; Start 05/10/16 at 13:30 Metoclopramide HCl (Reglan Liq) 10 mg Q6 GTB Last administered on 05/21/16at 17 :45; Admin Dose 10 MG; Start 05/10/16 at 18:00 Hydralazine HCl (Apresoline) 25 mg Q8H GTB Last administered on 05/21/16at 12: 49; Admin Dose 25 MG; Start 05/14/16 at 20:00 Insulin Glargine (Lantus) 14 unit QPM SC Last administered on 05/20/16at 23:06 ; Admin Dose 14 UNIT; Start 05/14/16 at 21:00 Citric Acid/ Sodium Citrate 30 ml 30 ml TID PO Last administered on 05/21/16 12:49; Admin Dose 30 ML; Start 05/15/16 at 21:00 Colistimethate Sodium/Sodium Chloride (Coly-Mycin/NS) 100 ml @ 50 mls/hr Q12 IVPB Last administered on 05/21/16at 09:05; Admin Dose 50 MLS/HR; Start at 13:30 Insulin Aspart NOVOLOG *MODERATE* ALGORITHM Q8 SC ; Start 05/20/16 at 14:00 Daptomycin/Sodium Chloride (Cubicin/NS) 100 ml @ 200 mls/hr Q24H IVPB Last administered on 05/21/16at 16:17; Admin Dose 200 MLS/HR; Start 05/21/16 at 14: 30 AMBER LIEBERMAN MD May 21, 2016 18:24
[2016-05-21] MEDS: ATORVASTATIN 20 MG TAB GTB SCH (22:03)
[2016-05-21] MEDS: INSULIN GLARGINE [LANtus] 3 ML PEN SC SCH (22:11)
[2016-05-22] VITALS (23 sets, daily range): BP systolic 93–119; BP diastolic 51–69; PULSE 89–103; RESP 14–21
[2016-05-22] MEDS: METOCLOPRAMIDE (1 MG/ML) 10 ML CUP GTB SCH ×4 (03:25→18:11)
[2016-05-22] MEDS: INSULIN ASPART [NOVOLOG] 3 ML PEN SC SCH ×3 (05:29→22:00)
[2016-05-22] MEDS: metroNIDAZOLE 500 MG TAB GTB SCH ×3 (05:29→22:21)
[2016-05-22 07:19] LABS: BASOPHILS % 0.2 % (0.0-2.0); EOSINOPHILS # 0.4 10^3/ul (0.0-0.5); EOSINOPHILS % 3.4 % (0.0-7.0); HEMATOCRIT 23.2 % (37.0-47.0); HEMOGLOBIN 7.8 g/dl (12.0-16.0); LYMPHOCYTES # 1.8 10^3/ul (0.8-2.9); LYMPHOCYTES % 13.7 % (15.0-51.0); MEAN CORPUSCULAR HEMOGLOBIN 30.7 pg (29.0-33.0); MEAN CORPUSCULAR HGB CONC 33.6 g/dl (32.0-37.0); MEAN CORPUSCULAR VOLUME 91.4 fl (82.0-101.0); MONOCYTE # 0.8 10^3/ul (0.3-0.9); MONOCYTES % 6.2 % (0.0-11.0); NEUTROPHIL # 9.8 10^3/ul (1.6-7.5); NEUTROPHILS % 76.5 % (39.0-77.0); PLATELET COUNT 428 10^3/UL (140-440); RED BLOOD COUNT 2.54 10^6/ul (4.20-5.40); RED CELL DISTRIBUTION WIDTH 15.8 % (11.5-14.5); UNCORRECTED WBC 12.8 10^3/ul (4.8-10.8); WHITE BLOOD COUNT 12.8 10^3/ul (4.8-10.8)
[2016-05-22 07:21] LABS: CONDITION 1; LH ANALYZER COMMENTS 1
[2016-05-22 07:41] LABS: ALBUMIN 2.1 g/dl (3.3-4.9)
[2016-05-22 07:42] LABS: POTASSIUM 4.1 mmol/L (3.5-5.1)
[2016-05-22 07:44] LABS: ALBUMIN/GLOBULIN RATIO 0.56; CALCIUM 7.3 mg/dl (8.4-10.2); CREATININE 0.94 mg/dl (0.44-1.00); TOTAL PROTEIN 5.8 g/dl (6.1-8.1)
[2016-05-22 07:45] LABS: MAGNESIUM 1.4 mg/dl (1.7-2.5)
[2016-05-22] MEDS: MULTIVITAMINS 5 ML CUP GTB SCH (08:41)
[2016-05-22] MEDS: FAMOTIDINE 20 MG TAB GTB SCH (08:41)
[2016-05-22] MEDS: CITRIC ACID/NA CITRATE 30 ML CUP PO SCH ×3 (08:41→20:32)
[2016-05-22] MEDS: LEVETIRACETAM (100 MG/ML) 5ML CUP GTB SCH ×2 (08:41→20:32)
[2016-05-22] MEDS: COLISTIMETHATE 75 MG in SOD CHLORIDE 0.9% 100 ML IVPB SCH ×2 (08:41→20:32)
[2016-05-22] MEDS: ASCORBIC ACID 500 MG TAB GTB SCH (08:41)
[2016-05-22] MEDS: ASPIRIN 81 MG TAB GTB SCH (08:41)
[2016-05-22] MEDS: COLLAGENASE 30 GM TUBE TOP SCH (08:42)
--- NOTE | 2016-05-22 10:10 | PN ---
Date/Time of Note Date/Time of Note DATE: 05/22/16 TIME: 10:03 Assessment/Plan VTE Prophylaxis VTE Prophylaxis Intervention: other Lines/Catheters IV [facility] Saline Lock Urinary Cath still in place: Yes Reason Cath still needed: pres ulcer contaminated by urine Assessment/Plan Problems: (1) Respiratory failure for > 28 days Status: Chronic Comment: She remains on the ventilator and is being managed with pulmonary assistance. Please note this is been a long-term issue and her overall prognosis for meaningful recovery is extremely low (2) VRE (vancomycin-resistant Enterococci) infection Status: Acute Comment: She has multiple drug-resistant organism infection sepsis possibly from urine but also possibly from the unstageable decubitus. Infectious diseases involved in her care. Continue on antibiotic therapy pending placement. (3) Hydrocephalus in adult Status: Chronic Comment: She has a [employer] shunt in and and actually had an extended stay because the prior [employer] shunt was infected. Overall prognosis is poor she remains on DNR status. She has chronic encephalopathic state Subjective 24 Hr Interval Summary Free Text/Dictation Chronic trach patient Subjective hx not possible: pt non-verbal Exam/Review of Systems Vital Signs Vitals Vital Signs Date Time Temp Pulse Resp B/P Pulse Ox O2 Delivery O2 Flow Rate FiO2 05/22/16 08:22 97 05/22/16 07:50 18 100 30 05/22/16 07:40 98.6 100/55 05/21/16 04:00 Mechanical Ventilator Trach Collar Intake and Output 05/21/16 05/21/16 05/22/16 15:00 23:00 07:00 Intake Total 750 ml 890 ml Output Total 1500 ml 1260 ml Balance -750 ml -370 ml Exam Constitutional: non-verbal Neck: non-tender, supple Respiratory: clear to auscultation, normal air movement Cardiovascular: nl pulses, regular rate and rhythm Results Result Diagram: 05/22/16 0600 05/22/16 0600 Results 24 hrs Laboratory Tests Test 05/21/16 13:58 05/21/16 22:02 05/22/16 05:28 05/22/16 06:00 Bedside Glucose 101 100 72 Alanine Aminotransferase (ALT/SGPT) 20 Albumin 2.1 L Albumin/Globulin Ratio 0.56 Alkaline Phosphatase 514 H Anion Gap 16 Aspartate Amino Transf (AST/SGOT) 20 Basophils # 0.0 Basophils % 0.2 Blood Morphology Comment Blood Urea Nitrogen 25 H Calcium Level 7.3 L Carbon Dioxide Level 19 L Chloride Level 108 Creatine Kinase < 20 L Creatinine 0.94 Direct Bilirubin 0.00 Eosinophils # 0.4 Eosinophils % 3.4 Globulin 3.70 H Glucose Level 53 L Hematocrit 23.2 L Hemoglobin 7.8 L Indirect Bilirubin 0.0 Lymphocytes # 1.8 Lymphocytes % 13.7 L Magnesium Level 1.4 L Mean Corpuscular Hemoglobin 30.7 Mean Corpuscular Hemoglobin Concent 33.6 Mean Corpuscular Volume 91.4 Mean Platelet Volume 8.0 Monocytes # 0.8 Monocytes % 6.2 Neutrophils # 9.8 H Neutrophils % 76.5 Nucleated Red Blood Cells # 0.0 Nucleated Red Blood Cells % 0.0 Platelet Count 428 # Potassium Level 4.1 Red Blood Count 2.54 L Red Cell Distribution Width 15.8 H Sodium Level 139 Total Bilirubin 0.0 L Total Protein 5.8 L White Blood Count 12.8 H Medications Medications Current Medications Morphine Sulfate (morphine) 2 mg Q4H PRN IV SEVERE PAIN LEVEL 7-10 Last administered on 05/07/16at 18:26; Admin Dose 2 MG; Start 05/04/16 at 07:30 Docusate Sodium (Colace) 100 mg Q12H PRN PO CONSTIPATION; Start 05/04/16 at 07 :30 Lorazepam (Ativan) 0.5 mg Q6H PRN IV ANXIETY Last administered on 05/06/16at 23 :58; Admin Dose 0.5 MG; Start 05/04/16 at 07:30 Hydralazine HCl (Apresoline) 10 mg Q6H PRN IV ELEVATED BLOOD PRESSURE; Start 05/04/16 at 07:30 Nitroglycerin (Nitroglycerin (Sl Tab) 0.4 Mg) 1 tab Q5M PRN SL ANGINA; Start 05/04/16 at 07:30 Acetaminophen (Tylenol Supp) 650 mg Q4 PRN [place] PAIN OR TEMP ABOVE 38C; Start at 07:30 Atorvastatin Calcium (Lipitor) 20 mg QHS GTB Last administered on 05/21/16at 22 :03; Admin Dose 20 MG; Start 05/04/16 at 21:00 Bisacodyl (Dulcolax Supp) 10 mg Q24H PRN [place] CONSTIPATION; Start 05/04/16 at 07 :30 Levetiracetam (Keppra Liquid) 1,000 mg Q12 GTB Last administered on 05/22/16at 08:41; Admin Dose 1,000 MG; Start 05/04/16 at 09:00 Multivitamins (Thera-Plus) 5 ml DAILY GTB Last administered on 05/22/16at 08:41 ; Admin Dose 5 ML; Start 05/04/16 at 09:00 Miscellaneous Information 1 ea NOTE XX ; Start 05/04/16 at 09:00 Glucose (Glutose) 15 gm Q15M PRN PO DECREASED GLUCOSE; Start 05/04/16 at 09:00 Glucose (Glutose) 22.5 gm Q15M PRN PO DECREASED GLUCOSE; Start 05/04/16 at 09: 00 Dextrose (D50w Syringe) 25 ml Q15M PRN IV DECREASED GLUCOSE; Start 05/04/16 at 09:00 Dextrose (D50w Syringe) 50 ml Q15M PRN IV DECREASED GLUCOSE; Start 05/04/16 at 09:00 Glucagon (Glucagen) 1 mg Q15M PRN IM DECREASED GLUCOSE; Start 05/04/16 at 09: 00 Glucose (Glutose) 15 gm Q15M PRN BUCCAL DECREASED GLUCOSE; Start 05/04/16 at 09:00 Acetaminophen (Tylenol Liquid) 650 mg Q6H PRN GTB PAIN LEVEL 1-3 OR FEVER Last administered on 05/20/16at 05:00; Admin Dose 650 MG; Start 05/04/16 at 18:30 Metronidazole (Flagyl) 500 mg Q8 GTB Last administered on 05/22/16at 05:29; Admin Dose 500 MG; Start 05/05/16 at 14:00 Collagenase (Santyl) APPLY TO NECROTIC TISSUE DAILY TOP Last administered on at 08:42; Admin Dose 1 APPLIC; Start 05/06/16 at 16:30 Collagenase (Santyl) APPLY TO NECROTIC AREA PRN PRN TOP SOILING Last administered on 05/21/16at 22:04; Admin Dose 3 APPLIC; Start 05/06/16 at 16:00 Aspirin (Aspirin) 81 mg DAILY GTB Last administered on 05/22/16at 08:41; Admin Dose 81 MG; Start 05/10/16 at 09:00 Ascorbic Acid (Vitamin C) 500 mg DAILY GTB Last administered on 05/22/16 08: 41; Admin Dose 500 MG; Start 05/10/16 at 11:00 Famotidine (Pepcid) 20 mg DAILY GTB Last administered on 05/22/16 08:41; Admin Dose 20 MG; Start 05/10/16 at 11:00 Acetaminophen/ Hydrocodone Bitart ([place] (5/325)) 1 tab Q6H PRN GTB MODERATE PAIN LEVEL 4-6; Start 05/10/16 at 13:30 Metoclopramide HCl (Reglan Liq) 10 mg Q6 GTB Last administered on 05/22/16 05 :29; Admin Dose 10 MG; Start 05/10/16 at 18:00 Hydralazine HCl (Apresoline) 25 mg Q8H GTB Last administered on 05/21/16at 12: 49; Admin Dose 25 MG; Start 05/14/16 at 20:00 Insulin Glargine (Lantus) 14 unit QPM SC Last administered on 05/21/16at 22:11 ; Admin Dose 14 UNIT; Start 05/14/16 at 21:00 Citric Acid/ Sodium Citrate 30 ml 30 ml TID PO Last administered on 05/22/16 08:41; Admin Dose 30 ML; Start 05/15/16 at 21:00 Colistimethate Sodium/Sodium Chloride (Coly-Mycin/NS) 100 ml @ 50 mls/hr Q12 IVPB Last administered on 05/22/16 08:41; Admin Dose 50 MLS/HR; Start at 13:30 Insulin Aspart NOVOLOG *MODERATE* ALGORITHM Q8 SC ; Start 05/20/16 at 14:00 Daptomycin/Sodium Chloride (Cubicin/NS) 100 ml @ 200 mls/hr Q24H IVPB Last administered on 05/21/16 16:17; Admin Dose 200 MLS/HR; Start 05/21/16 at 14: 30 CECILIA IGLESIAS MD May 22, 2016 10:10
--- NOTE | 2016-05-22 13:33 | PN ---
DATE: 05/22/2016 SUBJECTIVE: Patient Efraín remains stable this morning. No new events. Continues mechanical venti lation. VITAL SIGNS: Temperature 98, pulse 100, blood pressure 100/55, O2 saturation 96% on mechanical vent ilation, FIO2 of 30%. NECK: Trach site clean and intact. CARDIAC: S1, S2, no added sounds or murmurs. CHEST: Diminished air entry bilaterally. No rales or wheezes. ABDOMEN: Soft, nontender. No guarding or rebound. EXTREMITIES: No cyanosis, clubbing, edema. NEUROLOGIC: Generalized weakness, unable to assess. LABORATORY DATA: White count 12.8, hemoglobin 7.8, platelets within normal limits. BUN 25, creatin ine 0.94. IMPRESSION AND PLAN 1. Chronic vent dependent respiratory failure. 2. Chronic encephalopathy. 3. Anemia of chronic disease. 4. Resolving sepsis. 5. Dysphagia with G-tube. The patient will require 1. Continued antibiotics per ID. 2. Vent support. 3. Wound care. 4. DVT and GI prophylaxis. 5. Transfusion 1 unit packed red blood cells prior to discharge back to half-way facility. Dictated By: JIMMY MOLINA/RAMIRO Conf#: [id number] DID#: [id number]
[2016-05-22] MEDS: DAPTOMYCIN 540 MG in SOD CHLORIDE 0.9% 100 ML IVPB SCH (14:02)
--- NOTE | 2016-05-22 15:43 | CONS ---
Date/Time of Note Date/Time of Note DATE: 05/22/16 TIME: 15:42 Assessment/Plan Assessment/Plan Chief Complaint/Hosp Course IMPRESSION: 1. Patient has [id number] kidney disease. BETTER 2. Acute renal failure due to dehydration.BETTER 3. Underlying acute tubular necrosis due to sepsis.BETTER 4. Severe sepsis. 5. hypernatremia.better now hyponatremia 6. Free water deficit.BETTER 7. RES FAILURE 8. Lactic acidosis.BETTER 9. vdrf. 10. Anemia. 11. History of tracheostomy. 12 METABOLIC ACIDOSIS better PLAN [facility] LABS Problems: Consultation Date/Type/Reason Admit Date/Time May 04, 2016 at 05:51 Type of Consultation: RENAL Referring Provider: AMY HANKINS MD 24 HR Interval Summary Subjective hx not possible: pt non-verbal Exam/Review of Systems Vital Signs Vitals Vital Signs Date Time Temp Pulse Resp B/P Pulse Ox O2 Delivery O2 Flow Rate FiO2 05/22/16 15:39 98.6 98 20 116/69 100 05/22/16 15:00 30 05/21/16 04:00 Mechanical Ventilator Trach Collar Intake and Output 05/21/16 05/21/16 05/22/16 15:00 23:00 07:00 Intake Total 750 ml 890 ml Output Total 1500 ml 1260 ml Balance -750 ml -370 ml Exam Neck: supple Respiratory: clear to auscultation Cardiovascular: regular rate and rhythm Gastrointestinal: soft Results Result Diagram: 05/22/16 0600 05/22/16 0600 Results 24 hrs Laboratory Tests Test 05/21/16 22:02 05/22/16 05:28 05/22/16 06:00 05/22/16 13:42 Bedside Glucose 100 72 103 Alanine Aminotransferase (ALT/SGPT) 20 Albumin 2.1 L Albumin/Globulin Ratio 0.56 Alkaline Phosphatase 514 H Anion Gap 16 Aspartate Amino Transf (AST/SGOT) 20 Basophils # 0.0 Basophils % 0.2 Blood Morphology Comment Blood Urea Nitrogen 25 H Calcium Level 7.3 L Carbon Dioxide Level 19 L Chloride Level 108 Creatine Kinase < 20 L Creatinine 0.94 Direct Bilirubin 0.00 Eosinophils # 0.4 Eosinophils % 3.4 Globulin 3.70 H Glucose Level 53 L Hematocrit 23.2 L Hemoglobin 7.8 L Indirect Bilirubin 0.0 Lymphocytes # 1.8 Lymphocytes % 13.7 L Magnesium Level 1.4 L Mean Corpuscular Hemoglobin 30.7 Mean Corpuscular Hemoglobin Concent 33.6 Mean Corpuscular Volume 91.4 Mean Platelet Volume 8.0 Monocytes # 0.8 Monocytes % 6.2 Neutrophils # 9.8 H Neutrophils % 76.5 Nucleated Red Blood Cells # 0.0 Nucleated Red Blood Cells % 0.0 Platelet Count 428 # Potassium Level 4.1 Red Blood Count 2.54 L Red Cell Distribution Width 15.8 H Sodium Level 139 Total Bilirubin 0.0 L Total Protein 5.8 L White Blood Count 12.8 H Medications Medications Current Medications Morphine Sulfate (morphine) 2 mg Q4H PRN IV SEVERE PAIN LEVEL 7-10 Last administered on 05/07/16 18:26; Admin Dose 2 MG; Start 05/04/16 at 07:30 Docusate Sodium (Colace) 100 mg Q12H PRN PO CONSTIPATION; Start 05/04/16 at 07 :30 Lorazepam (Ativan) 0.5 mg Q6H PRN IV ANXIETY Last administered on 05/06/16at 23 :58; Admin Dose 0.5 MG; Start 05/04/16 at 07:30 Hydralazine HCl (Apresoline) 10 mg Q6H PRN IV ELEVATED BLOOD PRESSURE; Start 05/04/16 at 07:30 Nitroglycerin (Nitroglycerin (Sl Tab) 0.4 Mg) 1 tab Q5M PRN SL ANGINA; Start 05/04/16 at 07:30 Acetaminophen (Tylenol Supp) 650 mg Q4 PRN [place] PAIN OR TEMP ABOVE 38C; Start at 07:30 Atorvastatin Calcium (Lipitor) 20 mg QHS GTB Last administered on 05/21/16at 22 :03; Admin Dose 20 MG; Start 05/04/16 at 21:00 Bisacodyl (Dulcolax Supp) 10 mg Q24H PRN [place] CONSTIPATION; Start 05/04/16 at 07 :30 Levetiracetam (Keppra Liquid) 1,000 mg Q12 GTB Last administered on 05/22/16at 08:41; Admin Dose 1,000 MG; Start 05/04/16 at 09:00 Multivitamins (Thera-Plus) 5 ml DAILY GTB Last administered on 05/22/16at 08:41 ; Admin Dose 5 ML; Start 05/04/16 at 09:00 Miscellaneous Information 1 ea NOTE XX ; Start 05/04/16 at 09:00 Glucose (Glutose) 15 gm Q15M PRN PO DECREASED GLUCOSE; Start 05/04/16 at 09:00 Glucose (Glutose) 22.5 gm Q15M PRN PO DECREASED GLUCOSE; Start 05/04/16 at 09: 00 Dextrose (D50w Syringe) 25 ml Q15M PRN IV DECREASED GLUCOSE; Start 05/04/16 at 09:00 Dextrose (D50w Syringe) 50 ml Q15M PRN IV DECREASED GLUCOSE; Start 05/04/16 at 09:00 Glucagon (Glucagen) 1 mg Q15M PRN IM DECREASED GLUCOSE; Start 05/04/16 at 09: 00 Glucose (Glutose) 15 gm Q15M PRN BUCCAL DECREASED GLUCOSE; Start 05/04/16 at 09:00 Acetaminophen (Tylenol Liquid) 650 mg Q6H PRN GTB PAIN LEVEL 1-3 OR FEVER Last administered on 05/20/16at 05:00; Admin Dose 650 MG; Start 05/04/16 at 18:30 Metronidazole (Flagyl) 500 mg Q8 GTB Last administered on 05/22/16at 14:02; Admin Dose 500 MG; Start 05/05/16 at 14:00 Collagenase (Santyl) APPLY TO NECROTIC TISSUE DAILY TOP Last administered on at 08:42; Admin Dose 1 APPLIC; Start 05/06/16 at 16:30 Collagenase (Santyl) APPLY TO NECROTIC AREA PRN PRN TOP SOILING Last administered on 05/21/16at 22:04; Admin Dose 3 APPLIC; Start 05/06/16 at 16:00 Aspirin (Aspirin) 81 mg DAILY GTB Last administered on 05/22/16at 08:41; Admin Dose 81 MG; Start 05/10/16 at 09:00 Ascorbic Acid (Vitamin C) 500 mg DAILY GTB Last administered on 05/22/16at 08: 41; Admin Dose 500 MG; Start 05/10/16 at 11:00 Famotidine (Pepcid) 20 mg DAILY GTB Last administered on 05/22/16at 08:41; Admin Dose 20 MG; Start 05/10/16 at 11:00 Acetaminophen/ Hydrocodone Bitart ([place] (5/325)) 1 tab Q6H PRN GTB MODERATE PAIN LEVEL 4-6; Start 05/10/16 at 13:30 Metoclopramide HCl (Reglan Liq) 10 mg Q6 GTB Last administered on 05/22/16at 12 :18; Admin Dose 10 MG; Start 05/10/16 at 18:00 Hydralazine HCl (Apresoline) 25 mg Q8H GTB Last administered on 05/21/16 12: 49; Admin Dose 25 MG; Start 05/14/16 at 20:00 Insulin Glargine (Lantus) 14 unit QPM SC Last administered on 05/21/16at 22:11 ; Admin Dose 14 UNIT; Start 05/14/16 at 21:00 Citric Acid/ Sodium Citrate 30 ml 30 ml TID PO Last administered on 05/22/16at 12:18; Admin Dose 30 ML; Start 05/15/16 at 21:00 Colistimethate Sodium/Sodium Chloride (Coly-Mycin/NS) 100 ml @ 50 mls/hr Q12 IVPB Last administered on 05/22/16at 08:41; Admin Dose 50 MLS/HR; Start at 13:30 Insulin Aspart NOVOLOG *MODERATE* ALGORITHM Q8 SC ; Start 05/20/16 at 14:00 Daptomycin/Sodium Chloride (Cubicin/NS) 100 ml @ 200 mls/hr Q24H IVPB Last administered on 05/22/16at 14:02; Admin Dose 200 MLS/HR; Start 05/21/16 at 14: 30 AMBER LIEBERMAN MD May 22, 2016 15:42
--- NOTE | 2016-05-22 15:59 | CONS ---
Date/Time of Note Date/Time of Note DATE: 05/22/16 TIME: 15:50 Assessment/Plan Assessment/Plan Chief Complaint/Hosp Course ID PROGRESS NOTE 24H INTERVAL SUMMARY * Chronic encephalopathic-> hx of [employer] Shunt replacement for infection * WBC down to 12.8, Large sacrococcygeal decub IV possible osteomyelitis * Recurrent CRKP MDRO UTI * INDWELLINGS: Trach, PEG, Reynolds, [employer] shunt. PHYSICAL EXAMINATION: GENERAL: 46 yo chronic encephalopathic, eyes open, non-tracking, non- communicative HEENT: Unremarkable, oral secretions require suction NECK: Supple. Tracheostomy present. CHEST: Rise symmetrical. HEART: NSR on tele ABDOMEN: Soft, Peg EXTREMITIES: Without cyanosis/atrophy ID ASSESSMENT: 1. Severe sepsis with shock = RESOLVED 2. Clostridium difficile colitis (+)05/04 -> Now (-)05/14 post Rx Tygacil/ Vanco PO/Flagyl = OFF FLAGYL 3. Unstageable sacral decubitus, possible osteomyelitis with a history of multiple dbridements. 4. 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 5. Seizure disorder. 6. Chronic encephalopathy. 7. Complicated UTI = GNR CRKP MDRO * s/p Urinary tract infection with culture grew Deyanira glabrata. (-)MRSA Nares Screen CURRENT ABX START TODAY: Daptomycin, Colistin IV ID PLAN: 1. Continue current ABX 2. Change FC = CRKP is recurrent 3. OFF Flagyl = watch for recurrent C.Diff on current ABX . . . . Problems: Consultation Date/Type/Reason Admit Date/Time May 04, 2016 at 05:51 Type of Consultation: ID Referring Provider: AMY HANKINS MD Exam/Review of Systems Vital Signs Vitals Vital Signs Date Time Temp Pulse Resp B/P Pulse Ox O2 Delivery O2 Flow Rate FiO2 05/22/16 15:39 98.6 98 20 116/69 100 05/22/16 15:00 30 05/21/16 04:00 Mechanical Ventilator Trach Collar Intake and Output 05/21/16 05/21/16 05/22/16 15:00 23:00 07:00 Intake Total 750 ml 890 ml Output Total 1500 ml 1260 ml Balance -750 ml -370 ml Results Result Diagram: 05/22/16 0600 12/31/16 0600 Results 24 hrs Laboratory Tests Test 05/21/16 22:02 05/22/16 05:28 05/22/16 06:00 05/22/16 13:42 Bedside Glucose 100 72 103 Alanine Aminotransferase (ALT/SGPT) 20 Albumin 2.1 L Albumin/Globulin Ratio 0.56 Alkaline Phosphatase 514 H Anion Gap 16 Aspartate Amino Transf (AST/SGOT) 20 Basophils # 0.0 Basophils % 0.2 Blood Morphology Comment Blood Urea Nitrogen 25 H Calcium Level 7.3 L Carbon Dioxide Level 19 L Chloride Level 108 Creatine Kinase < 20 L Creatinine 0.94 Direct Bilirubin 0.00 Eosinophils # 0.4 Eosinophils % 3.4 Globulin 3.70 H Glucose Level 53 L Hematocrit 23.2 L Hemoglobin 7.8 L Indirect Bilirubin 0.0 Lymphocytes # 1.8 Lymphocytes % 13.7 L Magnesium Level 1.4 L Mean Corpuscular Hemoglobin 30.7 Mean Corpuscular Hemoglobin Concent 33.6 Mean Corpuscular Volume 91.4 Mean Platelet Volume 8.0 Monocytes # 0.8 Monocytes % 6.2 Neutrophils # 9.8 H Neutrophils % 76.5 Nucleated Red Blood Cells # 0.0 Nucleated Red Blood Cells % 0.0 Platelet Count 428 # Potassium Level 4.1 Red Blood Count 2.54 L Red Cell Distribution Width 15.8 H Sodium Level 139 Total Bilirubin 0.0 L Total Protein 5.8 L White Blood Count 12.8 H Medications Medications Current Medications Morphine Sulfate (morphine) 2 mg Q4H PRN IV SEVERE PAIN LEVEL 7-10 Last administered on 05/07/16at 18:26; Admin Dose 2 MG; Start 05/04/16 at 07:30 Docusate Sodium (Colace) 100 mg Q12H PRN PO CONSTIPATION; Start 05/04/16 at 07 :30 Lorazepam (Ativan) 0.5 mg Q6H PRN IV ANXIETY Last administered on 05/06/16at 23 :58; Admin Dose 0.5 MG; Start 05/04/16 at 07:30 Hydralazine HCl (Apresoline) 10 mg Q6H PRN IV ELEVATED BLOOD PRESSURE; Start 05/04/16 at 07:30 Nitroglycerin (Nitroglycerin (Sl Tab) 0.4 Mg) 1 tab Q5M PRN SL ANGINA; Start 05/04/16 at 07:30 Acetaminophen (Tylenol Supp) 650 mg Q4 PRN [place] PAIN OR TEMP ABOVE 38C; Start at 07:30 Atorvastatin Calcium (Lipitor) 20 mg QHS GTB Last administered on 05/21/16at 22 :03; Admin Dose 20 MG; Start 05/04/16 at 21:00 Bisacodyl (Dulcolax Supp) 10 mg Q24H PRN [place] CONSTIPATION; Start 05/04/16 at 07 :30 Levetiracetam (Keppra Liquid) 1,000 mg Q12 GTB Last administered on 05/22/16at 08:41; Admin Dose 1,000 MG; Start 05/04/16 at 09:00 Multivitamins (Thera-Plus) 5 ml DAILY GTB Last administered on 05/22/16at 08:41 ; Admin Dose 5 ML; Start 05/04/16 at 09:00 Miscellaneous Information 1 ea NOTE XX ; Start 05/04/16 at 09:00 Glucose (Glutose) 15 gm Q15M PRN PO DECREASED GLUCOSE; Start 05/04/16 at 09:00 Glucose (Glutose) 22.5 gm Q15M PRN PO DECREASED GLUCOSE; Start 05/04/16 at 09: 00 Dextrose (D50w Syringe) 25 ml Q15M PRN IV DECREASED GLUCOSE; Start 05/04/16 at 09:00 Dextrose (D50w Syringe) 50 ml Q15M PRN IV DECREASED GLUCOSE; Start 05/04/16 at 09:00 Glucagon (Glucagen) 1 mg Q15M PRN IM DECREASED GLUCOSE; Start 05/04/16 at 09: 00 Glucose (Glutose) 15 gm Q15M PRN BUCCAL DECREASED GLUCOSE; Start 05/04/16 at 09:00 Acetaminophen (Tylenol Liquid) 650 mg Q6H PRN GTB PAIN LEVEL 1-3 OR FEVER Last administered on 05/20/16at 05:00; Admin Dose 650 MG; Start 05/04/16 at 18:30 Metronidazole (Flagyl) 500 mg Q8 GTB Last administered on 05/22/16at 14:02; Admin Dose 500 MG; Start 05/05/16 at 14:00 Collagenase (Santyl) APPLY TO NECROTIC TISSUE DAILY TOP Last administered on at 08:42; Admin Dose 1 APPLIC; Start 05/06/16 at 16:30 Collagenase (Santyl) APPLY TO NECROTIC AREA PRN PRN TOP SOILING Last administered on 05/21/16 22:04; Admin Dose 3 APPLIC; Start 05/06/16 at 16:00 Aspirin (Aspirin) 81 mg DAILY GTB Last administered on 05/22/16 08:41; Admin Dose 81 MG; Start 05/10/16 at 09:00 Ascorbic Acid (Vitamin C) 500 mg DAILY GTB Last administered on 05/22/16 08: 41; Admin Dose 500 MG; Start 05/10/16 at 11:00 Famotidine (Pepcid) 20 mg DAILY GTB Last administered on 05/22/16 08:41; Admin Dose 20 MG; Start 05/10/16 at 11:00 Acetaminophen/ Hydrocodone Bitart ([place] (5/325)) 1 tab Q6H PRN GTB MODERATE PAIN LEVEL 4-6; Start 05/10/16 at 13:30 Metoclopramide HCl (Reglan Liq) 10 mg Q6 GTB Last administered on 05/22/16 12 :18; Admin Dose 10 MG; Start 05/10/16 at 18:00 Hydralazine HCl (Apresoline) 25 mg Q8H GTB Last administered on 05/21/16 12: 49; Admin Dose 25 MG; Start 05/14/16 at 20:00 Insulin Glargine (Lantus) 14 unit QPM SC Last administered on 05/21/16 22:11 ; Admin Dose 14 UNIT; Start 05/14/16 at 21:00 Citric Acid/ Sodium Citrate 30 ml 30 ml TID PO Last administered on 05/22/16at 12:18; Admin Dose 30 ML; Start 05/15/16 at 21:00 Colistimethate Sodium/Sodium Chloride (Coly-Mycin/NS) 100 ml @ 50 mls/hr Q12 IVPB Last administered on 05/22/16 08:41; Admin Dose 50 MLS/HR; Start at 13:30 Insulin Aspart NOVOLOG *MODERATE* ALGORITHM Q8 SC ; Start 05/20/16 at 14:00 Daptomycin/Sodium Chloride (Cubicin/NS) 100 ml @ 200 mls/hr Q24H IVPB Last administered on 05/22/16at 14:02; Admin Dose 200 MLS/HR; Start 05/21/16 at 14: 30 MAURA COX NP May 22, 2016 15:59
[2016-05-22] MEDS: ATORVASTATIN 20 MG TAB GTB SCH (20:33)
[2016-05-22] MEDS: INSULIN GLARGINE [LANtus] 3 ML PEN SC SCH (21:00)
[2016-05-23] VITALS (25 sets, daily range): BP systolic 99–125; BP diastolic 57–72; PULSE 96–111; RESP 14–25
[2016-05-23] MEDS: METOCLOPRAMIDE (1 MG/ML) 10 ML CUP GTB SCH ×4 (00:33→17:46)
[2016-05-23] MEDS: INSULIN ASPART [NOVOLOG] 3 ML PEN SC SCH ×3 (06:00→21:47)
[2016-05-23] MEDS: metroNIDAZOLE 500 MG TAB GTB SCH ×3 (06:27→21:31)
[2016-05-23] MEDS: LEVETIRACETAM (100 MG/ML) 5ML CUP GTB SCH ×2 (09:04→21:20)
[2016-05-23] MEDS: ASCORBIC ACID 500 MG TAB GTB SCH (09:05)
[2016-05-23] MEDS: COLLAGENASE 30 GM TUBE TOP SCH (09:05)
[2016-05-23] MEDS: ASPIRIN 81 MG TAB GTB SCH (09:05)
[2016-05-23] MEDS: CITRIC ACID/NA CITRATE 30 ML CUP PO SCH ×3 (09:05→21:20)
[2016-05-23] MEDS: FAMOTIDINE 20 MG TAB GTB SCH (09:05)
[2016-05-23] MEDS: COLISTIMETHATE 75 MG in SOD CHLORIDE 0.9% 100 ML IVPB SCH ×2 (09:05→21:20)
[2016-05-23] MEDS: MULTIVITAMINS 5 ML CUP GTB SCH (09:11)
--- NOTE | 2016-05-23 09:52 | PN ---
Date/Time of Note Date/Time of Note DATE: 05/23/16 TIME: 09:50 Assessment/Plan VTE Prophylaxis VTE Prophylaxis Intervention: LMWH Lines/Catheters IV Catheter Type (from Nrs): Saline Lock Urinary Cath still in place: Yes Reason Cath still needed: pres ulcer contaminated by urine Assessment/Plan Problems: (1) Respiratory failure for > 28 days Status: Chronic Comment: Patient remains chronically on the ventilator without hope for recovery of this. Continue treatment. 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 (3) Sepsis associated hypotension Status: Acute Comment: Resolved Subjective 24 Hr Interval Summary Subjective hx not possible: pt non-verbal (Chronic ventilator dependent) Exam/Review of Systems Vital Signs Vitals Vital Signs Date Time Temp Pulse Resp B/P Pulse Ox O2 Delivery O2 Flow Rate FiO2 05/23/16 08:42 111 05/23/16 07:09 98.6 99/57 100 05/23/16 05:01 14 30 05/21/16 04:00 Mechanical Ventilator Trach Collar Intake and Output 05/22/16 05/22/16 05/23/16 15:00 23:00 07:00 Intake Total 1425 ml 460 ml Output Total 1050 ml 900 ml Balance 375 ml -440 ml Exam Constitutional: non-verbal Respiratory: clear to auscultation, normal air movement (On ventilator) Cardiovascular: nl pulses, regular rate and rhythm Results Result Diagram: 05/22/16 0600 05/22/16 0600 Results 24 hrs Laboratory Tests Test 05/22/16 13:42 05/22/16 20:31 05/23/16 06:26 Bedside Glucose 103 75 110 Medications Medications Current Medications Morphine Sulfate (morphine) 2 mg Q4H PRN IV SEVERE PAIN LEVEL 7-10 Last administered on 05/07/16at 18:26; Admin Dose 2 MG; Start 05/04/16 at 07:30 Docusate Sodium (Colace) 100 mg Q12H PRN PO CONSTIPATION; Start 05/04/16 at 07 :30 Lorazepam (Ativan) 0.5 mg Q6H PRN IV ANXIETY Last administered on 05/06/16at 23 :58; Admin Dose 0.5 MG; Start 05/04/16 at 07:30 Hydralazine HCl (Apresoline) 10 mg Q6H PRN IV ELEVATED BLOOD PRESSURE; Start 05/04/16 at 07:30 Nitroglycerin (Nitroglycerin (Sl Tab) 0.4 Mg) 1 tab Q5M PRN SL ANGINA; Start 05/04/16 at 07:30 Acetaminophen (Tylenol Supp) 650 mg Q4 PRN [place] PAIN OR TEMP ABOVE 38C; Start at 07:30 Atorvastatin Calcium (Lipitor) 20 mg QHS GTB Last administered on 05/22/16at 20 :33; Admin Dose 20 MG; Start 05/04/16 at 21:00 Bisacodyl (Dulcolax Supp) 10 mg Q24H PRN [place] CONSTIPATION; Start 05/04/16 at 07 :30 Levetiracetam (Keppra Liquid) 1,000 mg Q12 GTB Last administered on 05/23/16 09 :04; Admin Dose 1,000 MG; Start 05/04/16 at 09:00 Multivitamins (Thera-Plus) 5 ml DAILY GTB Last administered on 05/23/16 09:11; Admin Dose 5 ML; Start 05/04/16 at 09:00 Miscellaneous Information 1 ea NOTE XX ; Start 05/04/16 at 09:00 Glucose (Glutose) 15 gm Q15M PRN PO DECREASED GLUCOSE; Start 05/04/16 at 09:00 Glucose (Glutose) 22.5 gm Q15M PRN PO DECREASED GLUCOSE; Start 05/04/16 at 09: 00 Dextrose (D50w Syringe) 25 ml Q15M PRN IV DECREASED GLUCOSE; Start 05/04/16 at 09:00 Dextrose (D50w Syringe) 50 ml Q15M PRN IV DECREASED GLUCOSE; Start 05/04/16 at 09:00 Glucagon (Glucagen) 1 mg Q15M PRN IM DECREASED GLUCOSE; Start 05/04/16 at 09: 00 Glucose (Glutose) 15 gm Q15M PRN BUCCAL DECREASED GLUCOSE; Start 05/04/16 at 09:00 Acetaminophen (Tylenol Liquid) 650 mg Q6H PRN GTB PAIN LEVEL 1-3 OR FEVER Last administered on 05/20/16at 05:00; Admin Dose 650 MG; Start 05/04/16 at 18:30 Metronidazole (Flagyl) 500 mg Q8 GTB Last administered on 05/23/16 06:27; Admin Dose 500 MG; Start 05/05/16 at 14:00 Collagenase (Santyl) APPLY TO NECROTIC TISSUE DAILY TOP Last administered on 09:05; Admin Dose 1 APPLIC; Start 05/06/16 at 16:30 Collagenase (Santyl) APPLY TO NECROTIC AREA PRN PRN TOP SOILING Last administered on 05/21/16at 22:04; Admin Dose 3 APPLIC; Start 05/06/16 at 16:00 Aspirin (Aspirin) 81 mg DAILY GTB Last administered on 05/23/16 09:05; Admin Dose 81 MG; Start 05/10/16 at 09:00 Ascorbic Acid (Vitamin C) 500 mg DAILY GTB Last administered on 05/23/16 09:05 ; Admin Dose 500 MG; Start 05/10/16 at 11:00 Famotidine (Pepcid) 20 mg DAILY GTB Last administered on 05/23/16 09:05; Admin Dose 20 MG; Start 05/10/16 at 11:00 Acetaminophen/ Hydrocodone Bitart ([place] (5/325)) 1 tab Q6H PRN GTB MODERATE PAIN LEVEL 4-6; Start 05/10/16 at 13:30 Metoclopramide HCl (Reglan Liq) 10 mg Q6 GTB Last administered on 05/23/16 06: 27; Admin Dose 10 MG; Start 05/10/16 at 18:00 Hydralazine HCl (Apresoline) 25 mg Q8H GTB Last administered on 05/22/16at 20: 32; Admin Dose 25 MG; Start 05/14/16 at 20:00 Insulin Glargine (Lantus) 14 unit QPM SC Last administered on 05/21/16at 22:11 ; Admin Dose 14 UNIT; Start 05/14/16 at 21:00 Citric Acid/ Sodium Citrate 30 ml 30 ml TID PO Last administered on 05/23/16 09 :05; Admin Dose 30 ML; Start 05/15/16 at 21:00 Colistimethate Sodium/Sodium Chloride (Coly-Mycin/NS) 100 ml @ 50 mls/hr Q12 IVPB Last administered on 05/23/16 09:05; Admin Dose 50 MLS/HR; Start at 13:30 Insulin Aspart NOVOLOG *MODERATE* ALGORITHM Q8 SC ; Start 05/20/16 at 14:00 Daptomycin/Sodium Chloride (Cubicin/NS) 100 ml @ 200 mls/hr Q24H IVPB Last administered on 05/22/16at 14:02; Admin Dose 200 MLS/HR; Start 05/21/16 at 14: 30 CECILIA IGLESIAS MD May 23, 2016 09:51
--- NOTE | 2016-05-23 11:29 | CONS ---
Date/Time of Note Date/Time of Note DATE: 05/23/16 TIME: 11:22 Consult Date/Type/Reason Admit Date/Time May 04, 2016 at 05:51 Type of Consultation: pulmonary Ordering Provider: AMY HANKINS MD Subjective Status post transfusion 1 unit packed red blood cells Clinically stable Repeat H&H pending Objective Vital Signs Date Time Temp Pulse Resp B/P Pulse Ox O2 Delivery O2 Flow Rate FiO2 05/23/16 11:05 97.9 111 20 118/72 100 05/23/16 05:01 30 05/21/16 04:00 Mechanical Ventilator Trach Collar Intake and Output 05/22/16 05/22/16 05/23/16 15:00 23:00 07:00 Intake Total 1425 ml 460 ml Output Total 1050 ml 900 ml Balance 375 ml -440 ml VITAL SIGNS: as above NECK: Trach site clean and intact. CARDIAC: S1, S2, no added sounds or murmurs. CHEST: Diminished air entry bilaterally. No rales or wheezes. ABDOMEN: Soft, nontender. No guarding or rebound. EXTREMITIES: No cyanosis, clubbing, edema. NEUROLOGIC: Generalized weakness, unable to assess. Results/Medications Result Diagram: 05/22/16 0600 05/22/16 06 Results 24 hrs Laboratory Tests Test 05/22/16 13:42 05/22/16 20:31 05/23/16 06:26 Bedside Glucose 103 75 110 Medications Current Medications Morphine Sulfate (morphine) 2 mg Q4H PRN IV SEVERE PAIN LEVEL 7-10 Last administered on 05/07/16at 18:26; Admin Dose 2 MG; Start 05/04/16 at 07:30 Docusate Sodium (Colace) 100 mg Q12H PRN PO CONSTIPATION; Start 05/04/16 at 07 :30 Lorazepam (Ativan) 0.5 mg Q6H PRN IV ANXIETY Last administered on 05/06/16at 23 :58; Admin Dose 0.5 MG; Start 05/04/16 at 07:30 Hydralazine HCl (Apresoline) 10 mg Q6H PRN IV ELEVATED BLOOD PRESSURE; Start 05/04/16 at 07:30 Nitroglycerin (Nitroglycerin (Sl Tab) 0.4 Mg) 1 tab Q5M PRN SL ANGINA; Start 05/04/16 at 07:30 Acetaminophen (Tylenol Supp) 650 mg Q4 PRN [place] PAIN OR TEMP ABOVE 38C; Start at 07:30 Atorvastatin Calcium (Lipitor) 20 mg QHS GTB Last administered on 05/22/16at 20 :33; Admin Dose 20 MG; Start 05/04/16 at 21:00 Bisacodyl (Dulcolax Supp) 10 mg Q24H PRN [place] CONSTIPATION; Start 05/04/16 at 07 :30 Levetiracetam (Keppra Liquid) 1,000 mg Q12 GTB Last administered on 05/23/16 09 :04; Admin Dose 1,000 MG; Start 05/04/16 at 09:00 Multivitamins (Thera-Plus) 5 ml DAILY GTB Last administered on 05/23/16 09:11; Admin Dose 5 ML; Start 05/04/16 at 09:00 Miscellaneous Information 1 ea NOTE XX ; Start 05/04/16 at 09:00 Glucose (Glutose) 15 gm Q15M PRN PO DECREASED GLUCOSE; Start 05/04/16 at 09:00 Glucose (Glutose) 22.5 gm Q15M PRN PO DECREASED GLUCOSE; Start 05/04/16 at 09: 00 Dextrose (D50w Syringe) 25 ml Q15M PRN IV DECREASED GLUCOSE; Start 05/04/16 at 09:00 Dextrose (D50w Syringe) 50 ml Q15M PRN IV DECREASED GLUCOSE; Start 05/04/16 at 09:00 Glucagon (Glucagen) 1 mg Q15M PRN IM DECREASED GLUCOSE; Start 05/04/16 at 09: 00 Glucose (Glutose) 15 gm Q15M PRN BUCCAL DECREASED GLUCOSE; Start 05/04/16 at 09:00 Acetaminophen (Tylenol Liquid) 650 mg Q6H PRN GTB PAIN LEVEL 1-3 OR FEVER Last administered on 05/20/16at 05:00; Admin Dose 650 MG; Start 05/04/16 at 18:30 Metronidazole (Flagyl) 500 mg Q8 GTB Last administered on 05/23/16 06:27; Admin Dose 500 MG; Start 05/05/16 at 14:00 Collagenase (Santyl) APPLY TO NECROTIC TISSUE DAILY TOP Last administered on 09:05; Admin Dose 1 APPLIC; Start 12/15/16 at 16:30 Collagenase (Santyl) APPLY TO NECROTIC AREA PRN PRN TOP SOILING Last administered on 05/21/16at 22:04; Admin Dose 3 APPLIC; Start 05/06/16 at 16:00 Aspirin (Aspirin) 81 mg DAILY GTB Last administered on 05/23/16 09:05; Admin Dose 81 MG; Start 05/10/16 at 09:00 Ascorbic Acid (Vitamin C) 500 mg DAILY GTB Last administered on 05/23/16 09:05 ; Admin Dose 500 MG; Start 05/10/16 at 11:00 Famotidine (Pepcid) 20 mg DAILY GTB Last administered on 05/23/16 09:05; Admin Dose 20 MG; Start 05/10/16 at 11:00 Acetaminophen/ Hydrocodone Bitart ([place] (5/325)) 1 tab Q6H PRN GTB MODERATE PAIN LEVEL 4-6; Start 05/10/16 at 13:30 Metoclopramide HCl (Reglan Liq) 10 mg Q6 GTB Last administered on 05/23/16 06: 27; Admin Dose 10 MG; Start 05/10/16 at 18:00 Hydralazine HCl (Apresoline) 25 mg Q8H GTB Last administered on 05/22/16at 20: 32; Admin Dose 25 MG; Start 05/14/16 at 20:00 Insulin Glargine (Lantus) 14 unit QPM SC Last administered on 05/21/16at 22:11 ; Admin Dose 14 UNIT; Start 05/14/16 at 21:00 Citric Acid/ Sodium Citrate 30 ml 30 ml TID PO Last administered on 05/23/16 09 :05; Admin Dose 30 ML; Start 05/15/16 at 21:00 Colistimethate Sodium/Sodium Chloride (Coly-Mycin/NS) 100 ml @ 50 mls/hr Q12 IVPB Last administered on 05/23/16 09:05; Admin Dose 50 MLS/HR; Start at 13:30 Insulin Aspart NOVOLOG *MODERATE* ALGORITHM Q8 SC ; Start 05/20/16 at 14:00 Daptomycin/Sodium Chloride (Cubicin/NS) 100 ml @ 200 mls/hr Q24H IVPB Last administered on 05/22/16at 14:02; Admin Dose 200 MLS/HR; Start 05/21/16 at 14: 30 Assessment/Plan Chief Complaint/Hosp Course IMPRESSION AND PLAN 1. Chronic vent dependent respiratory failure. 2. Chronic encephalopathy. 3. Anemia of chronic disease. 4. Resolving sepsis. 5. Dysphagia with G-tube. The patient will require 1. Continued antibiotics per ID. 2. Vent support. 3. Wound care. 4. DVT and GI prophylaxis. 5. repeat h/h Problems: JIMMY GONSALEZ MD, [facility] May 23, 2016 11:29
[2016-05-23 12:40] LABS: HEMATOCRIT 25.6 % (37.0-47.0); HEMOGLOBIN 8.5 g/dl (12.0-16.0)
[2016-05-23] MEDS: DAPTOMYCIN 540 MG in SOD CHLORIDE 0.9% 100 ML IVPB SCH (13:47)
--- NOTE | 2016-05-23 15:10 | CONS ---
Date/Time of Note Date/Time of Note DATE: 05/23/16 TIME: 15:09 Assessment/Plan Assessment/Plan Chief Complaint/Hosp Course IMPRESSION: 1. Patient has [id number] kidney disease. BETTER 2. Acute renal failure due to dehydration.BETTER 3. Underlying acute tubular necrosis due to sepsis.BETTER 4. Severe sepsis. 5. hypernatremia.better now hyponatremia 6. Free water deficit.BETTER 7. RES FAILURE 8. Lactic acidosis.BETTER 9. vdrf. 10. Anemia. 11. History of tracheostomy. 12 METABOLIC ACIDOSIS better PLAN [facility] Problems: Consultation Date/Type/Reason Admit Date/Time May 04, 2016 at 05:51 Type of Consultation: renal Referring Provider: AMY HANKINS MD Exam/Review of Systems Vital Signs Vitals Vital Signs Date Time Temp Pulse Resp B/P Pulse Ox O2 Delivery O2 Flow Rate FiO2 05/23/16 12:56 110 05/23/16 11:20 15 100 30 05/23/16 11:05 97.9 118/72 05/21/16 04:00 Mechanical Ventilator Trach Collar Intake and Output 05/22/16 05/22/16 05/23/16 15:00 23:00 07:00 Intake Total 1425 ml 460 ml Output Total 1050 ml 900 ml Balance 375 ml -440 ml Exam Respiratory: clear to auscultation Results Result Diagram: 05/23/16 1205 05/22/16 0600 Results 24 hrs Laboratory Tests Test 05/22/16 20:31 05/23/16 06:26 05/23/16 12:05 05/23/16 13:49 Bedside Glucose 75 110 101 Hematocrit 25.6 L Hemoglobin 8.5 L Medications Medications Current Medications Morphine Sulfate (morphine) 2 mg Q4H PRN IV SEVERE PAIN LEVEL 7-10 Last administered on 05/07/16at 18:26; Admin Dose 2 MG; Start 05/04/16 at 07:30 Docusate Sodium (Colace) 100 mg Q12H PRN PO CONSTIPATION; Start 05/04/16 at 07 :30 Lorazepam (Ativan) 0.5 mg Q6H PRN IV ANXIETY Last administered on 05/06/16at 23 :58; Admin Dose 0.5 MG; Start 05/04/16 at 07:30 Hydralazine HCl (Apresoline) 10 mg Q6H PRN IV ELEVATED BLOOD PRESSURE; Start 05/04/16 at 07:30 Nitroglycerin (Nitroglycerin (Sl Tab) 0.4 Mg) 1 tab Q5M PRN SL ANGINA; Start 05/04/16 at 07:30 Acetaminophen (Tylenol Supp) 650 mg Q4 PRN [place] PAIN OR TEMP ABOVE 38C; Start at 07:30 Atorvastatin Calcium (Lipitor) 20 mg QHS GTB Last administered on 05/22/16at 20 :33; Admin Dose 20 MG; Start 05/04/16 at 21:00 Bisacodyl (Dulcolax Supp) 10 mg Q24H PRN [place] CONSTIPATION; Start 05/04/16 at 07 :30 Levetiracetam (Keppra Liquid) 1,000 mg Q12 GTB Last administered on 05/23/16 09 :04; Admin Dose 1,000 MG; Start 05/04/16 at 09:00 Multivitamins (Thera-Plus) 5 ml DAILY GTB Last administered on 05/23/16 09:11; Admin Dose 5 ML; Start 05/04/16 at 09:00 Miscellaneous Information 1 ea NOTE XX ; Start 05/04/16 at 09:00 Glucose (Glutose) 15 gm Q15M PRN PO DECREASED GLUCOSE; Start 05/04/16 at 09:00 Glucose (Glutose) 22.5 gm Q15M PRN PO DECREASED GLUCOSE; Start 05/04/16 at 09: 00 Dextrose (D50w Syringe) 25 ml Q15M PRN IV DECREASED GLUCOSE; Start 05/04/16 at 09:00 Dextrose (D50w Syringe) 50 ml Q15M PRN IV DECREASED GLUCOSE; Start 05/04/16 at 09:00 Glucagon (Glucagen) 1 mg Q15M PRN IM DECREASED GLUCOSE; Start 05/04/16 at 09: 00 Glucose (Glutose) 15 gm Q15M PRN BUCCAL DECREASED GLUCOSE; Start 05/04/16 at 09:00 Acetaminophen (Tylenol Liquid) 650 mg Q6H PRN GTB PAIN LEVEL 1-3 OR FEVER Last administered on 05/20/16at 05:00; Admin Dose 650 MG; Start 05/04/16 at 18:30 Metronidazole (Flagyl) 500 mg Q8 GTB Last administered on 05/23/16 13:47; Admin Dose 500 MG; Start 05/05/16 at 14:00 Collagenase (Santyl) APPLY TO NECROTIC TISSUE DAILY TOP Last administered on 09:05; Admin Dose 1 APPLIC; Start 05/06/16 at 16:30 Collagenase (Santyl) APPLY TO NECROTIC AREA PRN PRN TOP SOILING Last administered on 05/21/16at 22:04; Admin Dose 3 APPLIC; Start 05/06/16 at 16:00 Aspirin (Aspirin) 81 mg DAILY GTB Last administered on 05/23/16 09:05; Admin Dose 81 MG; Start 05/10/16 at 09:00 Ascorbic Acid (Vitamin C) 500 mg DAILY GTB Last administered on 05/23/16 09:05 ; Admin Dose 500 MG; Start 05/10/16 at 11:00 Famotidine (Pepcid) 20 mg DAILY GTB Last administered on 05/23/16 09:05; Admin Dose 20 MG; Start 05/10/16 at 11:00 Acetaminophen/ Hydrocodone Bitart ([place] (5/325)) 1 tab Q6H PRN GTB MODERATE PAIN LEVEL 4-6; Start 05/10/16 at 13:30 Metoclopramide HCl (Reglan Liq) 10 mg Q6 GTB Last administered on 05/23/16 12: 41; Admin Dose 10 MG; Start 05/10/16 at 18:00 Hydralazine HCl (Apresoline) 25 mg Q8H GTB Last administered on 05/23/16 12:42 ; Admin Dose 25 MG; Start 05/14/16 at 20:00 Insulin Glargine (Lantus) 14 unit QPM SC Last administered on 05/21/16at 22:11 ; Admin Dose 14 UNIT; Start 05/14/16 at 21:00 Citric Acid/ Sodium Citrate 30 ml 30 ml TID PO Last administered on 05/23/16 12 :41; Admin Dose 30 ML; Start 05/15/16 at 21:00 Colistimethate Sodium/Sodium Chloride (Coly-Mycin/NS) 100 ml @ 50 mls/hr Q12 IVPB Last administered on 05/23/16 09:05; Admin Dose 50 MLS/HR; Start at 13:30 Insulin Aspart NOVOLOG *MODERATE* ALGORITHM Q8 SC ; Start 05/20/16 at 14:00 Daptomycin/Sodium Chloride (Cubicin/NS) 100 ml @ 200 mls/hr Q24H IVPB Last administered on 05/23/16t 13:47; Admin Dose 200 MLS/HR; Start 05/21/16 at 14:30 AMBER LIEBERMAN MD May 23, 2016 15:10
--- NOTE | 2016-05-23 15:57 | CONS ---
Date/Time of Note Date/Time of Note DATE: 05/23/16 TIME: 15:55 Assessment/Plan Assessment/Plan Chief Complaint/Hosp Course ID PROGRESS NOTE 24H INTERVAL SUMMARY * No new issues -- stable w/chronic encephalopathy > hx of CHARGE AIDE Shunt replacement for infection * WBC down to 12.8, Large sacrococcygeal decub IV possible osteomyelitis * Recurrent CRKP MDRO UTI * INDWELLINGS: Trach, PEG, Reynolds, CHARGE AIDE shunt. PHYSICAL EXAMINATION: GENERAL: 46 yo chronic encephalopathic, eyes open, non-tracking, non- communicative HEENT: Unremarkable, oral secretions require suction NECK: Supple. Tracheostomy present. CHEST: Rise symmetrical. HEART: NSR on tele ABDOMEN: Soft, Peg EXTREMITIES: Without cyanosis/atrophy ID ASSESSMENT: 1. Severe sepsis with shock = RESOLVED 2. Clostridium difficile colitis (+)05/04 -> Now (-)05/14 post Rx Tygacil/ Vanco PO/Flagyl = OFF FLAGYL 3. Unstageable sacral decubitus, possible osteomyelitis with a history of multiple dbridements. 4. 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 5. Seizure disorder. 6. Chronic encephalopathy. 7. Complicated UTI = GNR CRKP MDRO * s/p Urinary tract infection with culture grew Deyanira glabrata. (-)MRSA Nares Screen CURRENT ABX START TODAY: Daptomycin, Colistin IV ID PLAN: 1. Continue current ABX 2. s/p Change FC = was done prior confirmed by nurse 3. OFF Flagyl = watch for recurrent C.Diff on current ABX . . . . Problems: Consultation Date/Type/Reason Admit Date/Time May 04, 2016 at 05:51 Type of Consultation: ID Referring Provider: AMY HANKINS MD Exam/Review of Systems Vital Signs Vitals Vital Signs Date Time Temp Pulse Resp B/P Pulse Ox O2 Delivery O2 Flow Rate FiO2 05/23/16 12:56 110 05/23/16 11:20 15 100 30 05/23/16 11:05 97.9 118/72 05/21/16 04:00 Mechanical Ventilator Trach Collar Intake and Output 05/22/16 05/22/16 05/23/16 15:00 23:00 07:00 Intake Total 1425 ml 460 ml Output Total 1050 ml 900 ml Balance 375 ml -440 ml Results Result Diagram: 05/23/16 1205 05/22/16 0600 Results 24 hrs Laboratory Tests Test 05/22/16 20:31 05/23/16 06:26 05/23/16 12:05 05/23/16 13:49 Bedside Glucose 75 110 101 Hematocrit 25.6 L Hemoglobin 8.5 L Medications Medications Current Medications Morphine Sulfate (morphine) 2 mg Q4H PRN IV SEVERE PAIN LEVEL 7-10 Last administered on 05/07/16at 18:26; Admin Dose 2 MG; Start 05/04/16 at 07:30 Docusate Sodium (Colace) 100 mg Q12H PRN PO CONSTIPATION; Start 05/04/16 at 07 :30 Lorazepam (Ativan) 0.5 mg Q6H PRN IV ANXIETY Last administered on 05/06/16at 23 :58; Admin Dose 0.5 MG; Start 05/04/16 at 07:30 Hydralazine HCl (Apresoline) 10 mg Q6H PRN IV ELEVATED BLOOD PRESSURE; Start 05/04/16 at 07:30 Nitroglycerin (Nitroglycerin (Sl Tab) 0.4 Mg) 1 tab Q5M PRN SL ANGINA; Start 05/04/16 at 07:30 Acetaminophen (Tylenol Supp) 650 mg Q4 PRN [place] PAIN OR TEMP ABOVE 38C; Start at 07:30 Atorvastatin Calcium (Lipitor) 20 mg QHS GTB Last administered on 05/22/16at 20 :33; Admin Dose 20 MG; Start 05/04/16 at 21:00 Bisacodyl (Dulcolax Supp) 10 mg Q24H PRN [place] CONSTIPATION; Start 05/04/16 at 07 :30 Levetiracetam (Keppra Liquid) 1,000 mg Q12 GTB Last administered on 05/23/16 09 :04; Admin Dose 1,000 MG; Start 05/04/16 at 09:00 Multivitamins (Thera-Plus) 5 ml DAILY GTB Last administered on 05/23/16 09:11; Admin Dose 5 ML; Start 05/04/16 at 09:00 Miscellaneous Information 1 ea NOTE XX ; Start 05/04/16 at 09:00 Glucose (Glutose) 15 gm Q15M PRN PO DECREASED GLUCOSE; Start 05/04/16 at 09:00 Glucose (Glutose) 22.5 gm Q15M PRN PO DECREASED GLUCOSE; Start 05/04/16 at 09: 00 Dextrose (D50w Syringe) 25 ml Q15M PRN IV DECREASED GLUCOSE; Start 05/04/16 at 09:00 Dextrose (D50w Syringe) 50 ml Q15M PRN IV DECREASED GLUCOSE; Start 05/04/16 at 09:00 Glucagon (Glucagen) 1 mg Q15M PRN IM DECREASED GLUCOSE; Start 05/04/16 at 09: 00 Glucose (Glutose) 15 gm Q15M PRN BUCCAL DECREASED GLUCOSE; Start 05/04/16 at 09:00 Acetaminophen (Tylenol Liquid) 650 mg Q6H PRN GTB PAIN LEVEL 1-3 OR FEVER Last administered on 05/20/16at 05:00; Admin Dose 650 MG; Start 05/04/16 at 18:30 Metronidazole (Flagyl) 500 mg Q8 GTB Last administered on 05/23/16 13:47; Admin Dose 500 MG; Start 05/05/16 at 14:00 Collagenase (Santyl) APPLY TO NECROTIC TISSUE DAILY TOP Last administered on 09:05; Admin Dose 1 APPLIC; Start 05/06/16 at 16:30 Collagenase (Santyl) APPLY TO NECROTIC AREA PRN PRN TOP SOILING Last administered on 05/21/16at 22:04; Admin Dose 3 APPLIC; Start 05/06/16 at 16:00 Aspirin (Aspirin) 81 mg DAILY GTB Last administered on 05/23/16 09:05; Admin Dose 81 MG; Start 05/10/16 at 09:00 Ascorbic Acid (Vitamin C) 500 mg DAILY GTB Last administered on 05/23/16 09:05 ; Admin Dose 500 MG; Start 05/10/16 at 11:00 Famotidine (Pepcid) 20 mg DAILY GTB Last administered on 05/23/16 09:05; Admin Dose 20 MG; Start 05/10/16 at 11:00 Acetaminophen/ Hydrocodone Bitart ([place] (5/325)) 1 tab Q6H PRN GTB MODERATE PAIN LEVEL 4-6; Start 05/10/16 at 13:30 Metoclopramide HCl (Reglan Liq) 10 mg Q6 GTB Last administered on 05/23/16 12: 41; Admin Dose 10 MG; Start 05/10/16 at 18:00 Hydralazine HCl (Apresoline) 25 mg Q8H GTB Last administered on 05/23/16 12:42 ; Admin Dose 25 MG; Start 05/14/16 at 20:00 Insulin Glargine (Lantus) 14 unit QPM SC Last administered on 05/21/16at 22:11 ; Admin Dose 14 UNIT; Start 05/14/16 at 21:00 Citric Acid/ Sodium Citrate 30 ml 30 ml TID PO Last administered on 05/23/16 12 :41; Admin Dose 30 ML; Start 05/15/16 at 21:00 Colistimethate Sodium/Sodium Chloride (Coly-Mycin/NS) 100 ml @ 50 mls/hr Q12 IVPB Last administered on 05/23/16 09:05; Admin Dose 50 MLS/HR; Start at 13:30 Insulin Aspart NOVOLOG *MODERATE* ALGORITHM Q8 SC ; Start 05/20/16 at 14:00 Daptomycin/Sodium Chloride (Cubicin/NS) 100 ml @ 200 mls/hr Q24H IVPB Last administered on 05/23/16 13:47; Admin Dose 200 MLS/HR; Start 05/21/16 at 14:30 MAURA COX NP May 23, 2016 15:56
[2016-05-23] MEDS: ATORVASTATIN 20 MG TAB GTB SCH (21:20)
[2016-05-23] MEDS: INSULIN GLARGINE [LANtus] 3 ML PEN SC SCH (21:47)
[2016-05-24] VITALS (24 sets, daily range): BP systolic 116–142; BP diastolic 61–86; PULSE 85–101; RESP 14–20
[2016-05-24] MEDS: METOCLOPRAMIDE (1 MG/ML) 10 ML CUP GTB SCH ×4 (00:11→17:44)
[2016-05-24] MEDS: metroNIDAZOLE 500 MG TAB GTB SCH ×3 (05:43→21:17)
[2016-05-24] MEDS: INSULIN ASPART [NOVOLOG] 3 ML PEN SC SCH ×3 (05:46→22:00)
[2016-05-24 06:56] LABS: POTASSIUM 4.4 mmol/L (3.5-5.1)
[2016-05-24 06:58] LABS: CREATININE 1.42 mg/dl (0.44-1.00)
[2016-05-24 06:59] LABS: CALCIUM 7.4 mg/dl (8.4-10.2)
[2016-05-24] MEDS: FAMOTIDINE 20 MG TAB GTB SCH (10:02)
[2016-05-24] MEDS: MULTIVITAMINS 5 ML CUP GTB SCH (10:02)
[2016-05-24] MEDS: ASPIRIN 81 MG TAB GTB SCH (10:02)
[2016-05-24] MEDS: CITRIC ACID/NA CITRATE 30 ML CUP PO SCH ×3 (10:02→20:56)
[2016-05-24] MEDS: ASCORBIC ACID 500 MG TAB GTB SCH (10:02)
[2016-05-24] MEDS: LEVETIRACETAM (100 MG/ML) 5ML CUP GTB SCH ×2 (10:02→20:56)
[2016-05-24] MEDS: COLISTIMETHATE 75 MG in SOD CHLORIDE 0.9% 100 ML IVPB SCH ×2 (10:02→21:02)
[2016-05-24] MEDS: COLLAGENASE 30 GM TUBE TOP SCH (10:03)
--- NOTE | 2016-05-24 12:39 | CONS ---
Date/Time of Note Date/Time of Note DATE: 05/24/16 TIME: 12:38 Assessment/Plan Assessment/Plan Chief Complaint/Hosp Course ID PROGRESS NOTE 24H INTERVAL SUMMARY * Low grade temps, clinically status quo -- stable w/chronic encephalopathy > hx of SLICE CUTTING MACHINE OPERATOR Shunt replacement for infection * WBC down to 12.8, Large sacrococcygeal decub IV possible osteomyelitis * Recurrent CRKP MDRO UTI * INDWELLINGS: Trach, PEG, Reynolds, SLICE CUTTING MACHINE OPERATOR shunt. PHYSICAL EXAMINATION: GENERAL: 46 yo chronic encephalopathic, eyes open, non-tracking, non- communicative HEENT: Unremarkable, oral secretions require suction NECK: Supple. Tracheostomy present. CHEST: Rise symmetrical. HEART: NSR on tele ABDOMEN: Soft, Peg EXTREMITIES: Without cyanosis/atrophy ID ASSESSMENT: 1. Severe sepsis with shock = RESOLVED 2. Clostridium difficile colitis (+)05/04 -> Now (-)05/14 post Rx Tygacil/ Vanco PO/Flagyl = OFF FLAGYL 3. Unstageable sacral decubitus, possible osteomyelitis with a history of multiple dbridements. 4. 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 5. Seizure disorder. 6. Chronic encephalopathy. 7. Complicated UTI = GNR CRKP MDRO * s/p Urinary tract infection with culture grew Deyanira glabrata. (-)MRSA Nares Screen CURRENT ABX START TODAY: Daptomycin, Colistin IV ID PLAN: 1. Continue current ABX 2. s/p Change FC = was done prior confirmed by nurse 3. OFF Flagyl = watch for recurrent C.Diff on current ABX . . . . Problems: Consultation Date/Type/Reason Admit Date/Time May 04, 2016 at 05:51 Type of Consultation: ID Referring Provider: AMY HANKINS MD Exam/Review of Systems Vital Signs Vitals Vital Signs Date Time Temp Pulse Resp B/P Pulse Ox O2 Delivery O2 Flow Rate FiO2 05/24/16 12:24 99 05/24/16 11:51 98.5 20 116/63 100 05/24/16 11:42 30 05/21/16 04:00 Mechanical Ventilator Trach Collar Intake and Output 05/23/16 05/23/16 05/24/16 15:00 23:00 07:00 Intake Total 1360 ml 951 ml Output Total 1100 ml 600 ml Balance 260 ml 351 ml Results Result Diagram: 05/23/16 1205 05/24/16 0546 Results 24 hrs Laboratory Tests Test 05/23/16 13:49 05/23/16 21:32 05/24/16 05:45 05/24/16 05:46 Bedside Glucose 101 88 91 Anion Gap 19 H Blood Urea Nitrogen 34 H Calcium Level 7.4 L Carbon Dioxide Level 18 L Chloride Level 107 Creatinine 1.42 H Glucose Level 65 #L Potassium Level 4.4 Sodium Level 140 Medications Medications Current Medications Morphine Sulfate (morphine) 2 mg Q4H PRN IV SEVERE PAIN LEVEL 7-10 Last administered on 05/07/16at 18:26; Admin Dose 2 MG; Start 05/04/16 at 07:30 Docusate Sodium (Colace) 100 mg Q12H PRN PO CONSTIPATION; Start 05/04/16 at 07 :30 Lorazepam (Ativan) 0.5 mg Q6H PRN IV ANXIETY Last administered on 05/06/16at 23 :58; Admin Dose 0.5 MG; Start 05/04/16 at 07:30 Hydralazine HCl (Apresoline) 10 mg Q6H PRN IV ELEVATED BLOOD PRESSURE; Start 05/04/16 at 07:30 Nitroglycerin (Nitroglycerin (Sl Tab) 0.4 Mg) 1 tab Q5M PRN SL ANGINA; Start 05/04/16 at 07:30 Acetaminophen (Tylenol Supp) 650 mg Q4 PRN [place] PAIN OR TEMP ABOVE 38C; Start at 07:30 Atorvastatin Calcium (Lipitor) 20 mg QHS GTB Last administered on 05/23/16 21: 20; Admin Dose 20 MG; Start 05/04/16 at 21:00 Bisacodyl (Dulcolax Supp) 10 mg Q24H PRN [place] CONSTIPATION; Start 05/04/16 at 07 :30 Levetiracetam (Keppra Liquid) 1,000 mg Q12 GTB Last administered on 05/24/16 10 :02; Admin Dose 1,000 MG; Start 05/04/16 at 09:00 Multivitamins (Thera-Plus) 5 ml DAILY GTB Last administered on 05/24/16 10:02; Admin Dose 5 ML; Start 05/04/16 at 09:00 Miscellaneous Information 1 ea NOTE XX ; Start 05/04/16 at 09:00 Glucose (Glutose) 15 gm Q15M PRN PO DECREASED GLUCOSE; Start 05/04/16 at 09:00 Glucose (Glutose) 22.5 gm Q15M PRN PO DECREASED GLUCOSE; Start 05/04/16 at 09: 00 Dextrose (D50w Syringe) 25 ml Q15M PRN IV DECREASED GLUCOSE; Start 05/04/16 at 09:00 Dextrose (D50w Syringe) 50 ml Q15M PRN IV DECREASED GLUCOSE; Start 05/04/16 at 09:00 Glucagon (Glucagen) 1 mg Q15M PRN IM DECREASED GLUCOSE; Start 05/04/16 at 09: 00 Glucose (Glutose) 15 gm Q15M PRN BUCCAL DECREASED GLUCOSE; Start 05/04/16 at 09:00 Acetaminophen (Tylenol Liquid) 650 mg Q6H PRN GTB PAIN LEVEL 1-3 OR FEVER Last administered on 05/20/16at 05:00; Admin Dose 650 MG; Start 05/04/16 at 18:30 Metronidazole (Flagyl) 500 mg Q8 GTB Last administered on 05/24/16 05:43; Admin Dose 500 MG; Start 05/05/16 at 14:00 Collagenase (Santyl) APPLY TO NECROTIC TISSUE DAILY TOP Last administered on 10:03; Admin Dose 1 APPLIC; Start 05/06/16 at 16:30 Collagenase (Santyl) APPLY TO NECROTIC AREA PRN PRN [place] SOILING Last administered on 05/21/16at 22:04; Admin Dose 3 APPLIC; Start 05/06/16 at 16:00 Aspirin (Aspirin) 81 mg DAILY GTB Last administered on 05/24/16 10:02; Admin Dose 81 MG; Start 05/10/16 at 09:00 Ascorbic Acid (Vitamin C) 500 mg DAILY GTB Last administered on 05/24/16 10:02 ; Admin Dose 500 MG; Start 05/10/16 at 11:00 Famotidine (Pepcid) 20 mg DAILY GTB Last administered on 05/24/16 10:02; Admin Dose 20 MG; Start 05/10/16 at 11:00 Acetaminophen/ Hydrocodone Bitart ([place] (5/325)) 1 tab Q6H PRN GTB MODERATE PAIN LEVEL 4-6; Start 05/10/16 at 13:30 Metoclopramide HCl (Reglan Liq) 10 mg Q6 GTB Last administered on 05/24/16 05: 42; Admin Dose 10 MG; Start 05/10/16 at 18:00 Hydralazine HCl (Apresoline) 25 mg Q8H GTB Last administered on 05/24/16 05:46 ; Admin Dose 25 MG; Start 05/14/16 at 20:00 Insulin Glargine (Lantus) 14 unit QPM SC Last administered on 05/23/16 21:47; Admin Dose 14 UNIT; Start 05/14/16 at 21:00 Citric Acid/ Sodium Citrate 30 ml 30 ml TID PO Last administered on 05/24/16 10 :02; Admin Dose 30 ML; Start 05/15/16 at 21:00 Colistimethate Sodium/Sodium Chloride (Coly-Mycin/NS) 100 ml @ 50 mls/hr Q12 IVPB Last administered on 05/24/16 10:02; Admin Dose 50 MLS/HR; Start at 13:30 Insulin Aspart NOVOLOG *MODERATE* ALGORITHM Q8 SC ; Start 05/20/16 at 14:00 Daptomycin/Sodium Chloride (Cubicin/NS) 100 ml @ 200 mls/hr Q24H IVPB Last administered on 05/23/16 13:47; Admin Dose 200 MLS/HR; Start 05/21/16 at 14:30 MAURA COX NP May 24, 2016 12:39
--- NOTE | 2016-05-24 13:07 | CONS ---
Date/Time of Note Date/Time of Note DATE: 05/24/16 TIME: 13:06 Consult Date/Type/Reason Admit Date/Time May 04, 2016 at 05:51 Type of Consultation: Pulm Ordering Provider: AMY HANKINS MD Subjective Comfortable. Objective Vital Signs Date Time Temp Pulse Resp B/P Pulse Ox O2 Delivery O2 Flow Rate FiO2 05/24/16 12:24 99 05/24/16 11:51 98.5 20 116/63 100 05/24/16 11:42 30 05/21/16 04:00 Mechanical Ventilator Trach Collar Intake and Output 05/23/16 05/23/16 05/24/16 15:00 23:00 07:00 Intake Total 1360 ml 951 ml Output Total 1100 ml 600 ml Balance 260 ml 351 ml VITAL SIGNS: as above NECK: Trach site clean and intact. CARDIAC: S1, S2, no added sounds or murmurs. CHEST: Diminished air entry bilaterally. No rales or wheezes. ABDOMEN: Soft, nontender. No guarding or rebound. EXTREMITIES: No cyanosis, clubbing, edema. NEUROLOGIC: Generalized weakness, unable to assess. Results/Medications Result Diagram: 05/23/16 1205 05/24/16 0546 Results 24 hrs Laboratory Tests Test 05/23/16 13:49 05/23/16 21:32 05/24/16 05:45 05/24/16 05:46 Bedside Glucose 101 88 91 Anion Gap 19 H Blood Urea Nitrogen 34 H Calcium Level 7.4 L Carbon Dioxide Level 18 L Chloride Level 107 Creatinine 1.42 H Glucose Level 65 #L Potassium Level 4.4 Sodium Level 140 Medications Current Medications Morphine Sulfate (morphine) 2 mg Q4H PRN IV SEVERE PAIN LEVEL 7-10 Last administered on 05/07/16at 18:26; Admin Dose 2 MG; Start 05/04/16 at 07:30 Docusate Sodium (Colace) 100 mg Q12H PRN PO CONSTIPATION; Start 05/04/16 at 07 :30 Lorazepam (Ativan) 0.5 mg Q6H PRN IV ANXIETY Last administered on 05/06/16at 23 :58; Admin Dose 0.5 MG; Start 05/04/16 at 07:30 Hydralazine HCl (Apresoline) 10 mg Q6H PRN IV ELEVATED BLOOD PRESSURE; Start 05/04/16 at 07:30 Nitroglycerin (Nitroglycerin (Sl Tab) 0.4 Mg) 1 tab Q5M PRN SL ANGINA; Start 05/04/16 at 07:30 Acetaminophen (Tylenol Supp) 650 mg Q4 PRN [place] PAIN OR TEMP ABOVE 38C; Start at 07:30 Atorvastatin Calcium (Lipitor) 20 mg QHS GTB Last administered on 05/23/16 21: 20; Admin Dose 20 MG; Start 05/04/16 at 21:00 Bisacodyl (Dulcolax Supp) 10 mg Q24H PRN [place] CONSTIPATION; Start 05/04/16 at 07 :30 Levetiracetam (Keppra Liquid) 1,000 mg Q12 GTB Last administered on 05/24/16 10 :02; Admin Dose 1,000 MG; Start 05/04/16 at 09:00 Multivitamins (Thera-Plus) 5 ml DAILY GTB Last administered on 05/24/16 10:02; Admin Dose 5 ML; Start 05/04/16 at 09:00 Miscellaneous Information 1 ea NOTE XX ; Start 05/04/16 at 09:00 Glucose (Glutose) 15 gm Q15M PRN PO DECREASED GLUCOSE; Start 05/04/16 at 09:00 Glucose (Glutose) 22.5 gm Q15M PRN PO DECREASED GLUCOSE; Start 05/04/16 at 09: 00 Dextrose (D50w Syringe) 25 ml Q15M PRN IV DECREASED GLUCOSE; Start 05/04/16 at 09:00 Dextrose (D50w Syringe) 50 ml Q15M PRN IV DECREASED GLUCOSE; Start 05/04/16 at 09:00 Glucagon (Glucagen) 1 mg Q15M PRN IM DECREASED GLUCOSE; Start 05/04/16 at 09: 00 Glucose (Glutose) 15 gm Q15M PRN BUCCAL DECREASED GLUCOSE; Start 05/04/16 at 09:00 Acetaminophen (Tylenol Liquid) 650 mg Q6H PRN GTB PAIN LEVEL 1-3 OR FEVER Last administered on 05/20/16at 05:00; Admin Dose 650 MG; Start 05/04/16 at 18:30 Metronidazole (Flagyl) 500 mg Q8 GTB Last administered on 05/24/16 05:43; Admin Dose 500 MG; Start 05/05/16 at 14:00 Collagenase (Santyl) APPLY TO NECROTIC TISSUE DAILY TOP Last administered on 10:03; Admin Dose 1 APPLIC; Start 05/06/16 at 16:30 Collagenase (Santyl) APPLY TO NECROTIC AREA PRN PRN TOP SOILING Last administered on 05/21/16at 22:04; Admin Dose 3 APPLIC; Start 05/06/16 at 16:00 Aspirin (Aspirin) 81 mg DAILY GTB Last administered on 05/24/16 10:02; Admin Dose 81 MG; Start 05/10/16 at 09:00 Ascorbic Acid (Vitamin C) 500 mg DAILY GTB Last administered on 05/24/16 10:02 ; Admin Dose 500 MG; Start 05/10/16 at 11:00 Famotidine (Pepcid) 20 mg DAILY GTB Last administered on 05/24/16 10:02; Admin Dose 20 MG; Start 05/10/16 at 11:00 Acetaminophen/ Hydrocodone Bitart ([place] (5/325)) 1 tab Q6H PRN GTB MODERATE PAIN LEVEL 4-6; Start 05/10/16 at 13:30 Metoclopramide HCl (Reglan Liq) 10 mg Q6 GTB Last administered on 05/24/16 05: 42; Admin Dose 10 MG; Start 05/10/16 at 18:00 Hydralazine HCl (Apresoline) 25 mg Q8H GTB Last administered on 05/24/16 05:46 ; Admin Dose 25 MG; Start 05/14/16 at 20:00 Insulin Glargine (Lantus) 14 unit QPM SC Last administered on 05/23/16 21:47; Admin Dose 14 UNIT; Start 05/14/16 at 21:00 Citric Acid/ Sodium Citrate 30 ml 30 ml TID PO Last administered on 05/24/16 10 :02; Admin Dose 30 ML; Start 05/15/16 at 21:00 Colistimethate Sodium/Sodium Chloride (Coly-Mycin/NS) 100 ml @ 50 mls/hr Q12 IVPB Last administered on 05/24/16 10:02; Admin Dose 50 MLS/HR; Start at 13:30 Insulin Aspart NOVOLOG *MODERATE* ALGORITHM Q8 SC ; Start 12/29/16 at 14:00 Daptomycin/Sodium Chloride (Cubicin/NS) 100 ml @ 200 mls/hr Q24H IVPB Last administered on 05/23/16t 13:47; Admin Dose 200 MLS/HR; Start 05/21/16 at 14:30 Assessment/Plan Chief Complaint/Hosp Course IMPRESSION AND PLAN 1. Chronic vent dependent respiratory failure. 2. Chronic encephalopathy. 3. Anemia of chronic disease. 4. Resolving sepsis. 5. Dysphagia with G-tube. The patient will require 1. Continued antibiotics per ID. 2. Vent support. 3. Wound care. 4. DVT and GI prophylaxis. 5. Monitor Hb. dc planning. Problems: JIMMY GONSALEZ MD, FCCP May 24, 2016 13:06
[2016-05-24] MEDS: DAPTOMYCIN 540 MG in SOD CHLORIDE 0.9% 100 ML IVPB SCH (14:02)
--- NOTE | 2016-05-24 14:06 | CONS ---
Date/Time of Note Date/Time of Note DATE: 05/24/16 TIME: 14:04 Assessment/Plan Assessment/Plan Chief Complaint/Hosp Course IMPRESSION: 1. Patient has [id number] kidney disease. 2. Acute renal failure due to dehydration.BETTER 3. Underlying acute tubular necrosis due to sepsis. 4. Severe sepsis. 5. hypernatremia.better now hyponatremia 6. Free water deficit.BETTER 7. RES FAILURE 8. Lactic acidosis.BETTER 9. vdrf. 10. Anemia. 11. History of tracheostomy. 12 METABOLIC ACIDOSIS better PLAN [facility] avoid nephrotoxic drugs iv fluid Problems: Consultation Date/Type/Reason Admit Date/Time May 04, 2016 at 05:51 Type of Consultation: renal Referring Provider: AMY HANKINS MD 24 HR Interval Summary Subjective hx not possible: pt non-verbal Exam/Review of Systems Vital Signs Vitals Vital Signs Date Time Temp Pulse Resp B/P Pulse Ox O2 Delivery O2 Flow Rate FiO2 05/24/16 13:43 104 14 100 30 05/24/16 11:51 98.5 116/63 05/21/16 04:00 Mechanical Ventilator Trach Collar Intake and Output 05/23/16 05/23/16 05/24/16 15:00 23:00 07:00 Intake Total 1360 ml 951 ml Output Total 1100 ml 600 ml Balance 260 ml 351 ml Exam Respiratory: clear to auscultation Cardiovascular: regular rate and rhythm Gastrointestinal: bowel sounds (+), soft Extremities: edema (tr) Results Result Diagram: 05/23/16 1205 05/24/16 0546 Results 24 hrs Laboratory Tests Test 05/23/16 21:32 05/24/16 05:45 05/24/16 05:46 Bedside Glucose 88 91 Anion Gap 19 H Blood Urea Nitrogen 34 H Calcium Level 7.4 L Carbon Dioxide Level 18 L Chloride Level 107 Creatinine 1.42 H Glucose Level 65 #L Potassium Level 4.4 Sodium Level 140 Medications Medications Current Medications Morphine Sulfate (morphine) 2 mg Q4H PRN IV SEVERE PAIN LEVEL 7-10 Last administered on 05/07/16at 18:26; Admin Dose 2 MG; Start 05/04/16 at 07:30 Docusate Sodium (Colace) 100 mg Q12H PRN PO CONSTIPATION; Start 05/04/16 at 07 :30 Lorazepam (Ativan) 0.5 mg Q6H PRN IV ANXIETY Last administered on 05/06/16at 23 :58; Admin Dose 0.5 MG; Start 05/04/16 at 07:30 Hydralazine HCl (Apresoline) 10 mg Q6H PRN IV ELEVATED BLOOD PRESSURE; Start 05/04/16 at 07:30 Nitroglycerin (Nitroglycerin (Sl Tab) 0.4 Mg) 1 tab Q5M PRN SL ANGINA; Start 05/04/16 at 07:30 Acetaminophen (Tylenol Supp) 650 mg Q4 PRN [place] PAIN OR TEMP ABOVE 38C; Start at 07:30 Atorvastatin Calcium (Lipitor) 20 mg QHS GTB Last administered on 05/23/16 21: 20; Admin Dose 20 MG; Start 05/04/16 at 21:00 Bisacodyl (Dulcolax Supp) 10 mg Q24H PRN [place] CONSTIPATION; Start 05/04/16 at 07 :30 Levetiracetam (Keppra Liquid) 1,000 mg Q12 GTB Last administered on 05/24/16 10 :02; Admin Dose 1,000 MG; Start 05/04/16 at 09:00 Multivitamins (Thera-Plus) 5 ml DAILY GTB Last administered on 05/24/16 10:02; Admin Dose 5 ML; Start 05/04/16 at 09:00 Miscellaneous Information 1 ea NOTE XX ; Start 05/04/16 at 09:00 Glucose (Glutose) 15 gm Q15M PRN PO DECREASED GLUCOSE; Start 05/04/16 at 09:00 Glucose (Glutose) 22.5 gm Q15M PRN PO DECREASED GLUCOSE; Start 05/04/16 at 09: 00 Dextrose (D50w Syringe) 25 ml Q15M PRN IV DECREASED GLUCOSE; Start 05/04/16 at 09:00 Dextrose (D50w Syringe) 50 ml Q15M PRN IV DECREASED GLUCOSE; Start 05/04/16 at 09:00 Glucagon (Glucagen) 1 mg Q15M PRN IM DECREASED GLUCOSE; Start 05/04/16 at 09: 00 Glucose (Glutose) 15 gm Q15M PRN BUCCAL DECREASED GLUCOSE; Start 05/04/16 at 09:00 Acetaminophen (Tylenol Liquid) 650 mg Q6H PRN GTB PAIN LEVEL 1-3 OR FEVER Last administered on 05/20/16at 05:00; Admin Dose 650 MG; Start 05/04/16 at 18:30 Metronidazole (Flagyl) 500 mg Q8 GTB Last administered on 05/24/16 14:01; Admin Dose 500 MG; Start 05/05/16 at 14:00 Collagenase (Santyl) APPLY TO NECROTIC TISSUE DAILY TOP Last administered on 10:03; Admin Dose 1 APPLIC; Start 05/06/16 at 16:30 Collagenase (Santyl) APPLY TO NECROTIC AREA PRN PRN TOP SOILING Last administered on 05/21/16at 22:04; Admin Dose 3 APPLIC; Start 05/06/16 at 16:00 Aspirin (Aspirin) 81 mg DAILY GTB Last administered on 05/24/16 10:02; Admin Dose 81 MG; Start 05/10/16 at 09:00 Ascorbic Acid (Vitamin C) 500 mg DAILY GTB Last administered on 05/24/16 10:02 ; Admin Dose 500 MG; Start 05/10/16 at 11:00 Famotidine (Pepcid) 20 mg DAILY GTB Last administered on 05/24/16 10:02; Admin Dose 20 MG; Start 05/10/16 at 11:00 Acetaminophen/ Hydrocodone Bitart ([place] (5/325)) 1 tab Q6H PRN GTB MODERATE PAIN LEVEL 4-6; Start 05/10/16 at 13:30 Metoclopramide HCl (Reglan Liq) 10 mg Q6 GTB Last administered on 05/24/16 14: 01; Admin Dose 10 MG; Start 05/10/16 at 18:00 Hydralazine HCl (Apresoline) 25 mg Q8H GTB Last administered on 05/24/16 14:02 ; Admin Dose 25 MG; Start 05/14/16 at 20:00 Insulin Glargine (Lantus) 14 unit QPM SC Last administered on 05/23/16 21:47; Admin Dose 14 UNIT; Start 05/14/16 at 21:00 Citric Acid/ Sodium Citrate 30 ml 30 ml TID PO Last administered on 05/24/16 14 :01; Admin Dose 30 ML; Start 05/15/16 at 21:00 Colistimethate Sodium/Sodium Chloride (Coly-Mycin/NS) 100 ml @ 50 mls/hr Q12 IVPB Last administered on 05/24/16 10:02; Admin Dose 50 MLS/HR; Start at 13:30 Insulin Aspart NOVOLOG *MODERATE* ALGORITHM Q8 SC ; Start 05/20/16 at 14:00 Daptomycin/Sodium Chloride (Cubicin/NS) 100 ml @ 200 mls/hr Q24H IVPB Last administered on 05/24/16 14:02; Admin Dose 200 MLS/HR; Start 05/21/16 at 14:30 AMBER LIEBERMAN MD May 24, 2016 14:06
--- NOTE | 2016-05-24 14:27 | PN ---
Date/Time of Note Date/Time of Note DATE: 05/24/16 TIME: 14:25 Assessment/Plan VTE Prophylaxis VTE Prophylaxis Intervention: other Lines/Catheters IV Catheter Type (from Nrsg): Saline Lock Urinary Cath still in place: Yes Reason Cath still needed: pres ulcer contaminated by urine Assessment/Plan Problems: (1) Anemia of chronic disease Status: Chronic Comment: Transfuse 1 more unit of blood in preparation for discharge (2) Respiratory failure for > 28 days Status: Chronic Comment: Remains ventilator dependent and will continue so for the foreseeable future (3) CVA (cerebral vascular accident) Status: Acute Comment: Stable with prognosis limited Qualifiers: CVA mechanism: unspecified Qualified Code: I63.9 - Cerebrovascular accident (CVA), unspecified mechanism Subjective 24 Hr Interval Summary Subjective hx not possible: pt non-verbal Exam/Review of Systems Vital Signs Vitals Vital Signs Date Time Temp Pulse Resp B/P Pulse Ox O2 Delivery O2 Flow Rate FiO2 05/24/16 13:43 104 14 100 30 05/24/16 11:51 98.5 116/63 05/21/16 04:00 Mechanical Ventilator Trach Collar Intake and Output 05/23/16 05/23/16 05/24/16 15:00 23:00 07:00 Intake Total 1360 ml 951 ml Output Total 1100 ml 600 ml Balance 260 ml 351 ml Exam Respiratory: clear to auscultation, normal air movement (Ventilator dependent) Cardiovascular: nl pulses, regular rate and rhythm Results Result Diagram: 05/23/16 1205 05/24/16 0546 Results 24 hrs Laboratory Tests Test 05/23/16 21:32 05/24/16 05:45 05/24/16 05:46 05/24/16 14:09 Bedside Glucose 88 91 96 Anion Gap 19 H Blood Urea Nitrogen 34 H Calcium Level 7.4 L Carbon Dioxide Level 18 L Chloride Level 107 Creatinine 1.42 H Glucose Level 65 #L Potassium Level 4.4 Sodium Level 140 Medications Medications Current Medications Morphine Sulfate (morphine) 2 mg Q4H PRN IV SEVERE PAIN LEVEL 7-10 Last administered on 05/07/16at 18:26; Admin Dose 2 MG; Start 05/04/16 at 07:30 Docusate Sodium (Colace) 100 mg Q12H PRN PO CONSTIPATION; Start 05/04/16 at 07 :30 Lorazepam (Ativan) 0.5 mg Q6H PRN IV ANXIETY Last administered on 05/06/16at 23 :58; Admin Dose 0.5 MG; Start 05/04/16 at 07:30 Hydralazine HCl (Apresoline) 10 mg Q6H PRN IV ELEVATED BLOOD PRESSURE; Start 05/04/16 at 07:30 Nitroglycerin (Nitroglycerin (Sl Tab) 0.4 Mg) 1 tab Q5M PRN SL ANGINA; Start 05/04/16 at 07:30 Acetaminophen (Tylenol Supp) 650 mg Q4 PRN [place] PAIN OR TEMP ABOVE 38C; Start at 07:30 Atorvastatin Calcium (Lipitor) 20 mg QHS GTB Last administered on 05/23/16 21: 20; Admin Dose 20 MG; Start 05/04/16 at 21:00 Bisacodyl (Dulcolax Supp) 10 mg Q24H PRN [place] CONSTIPATION; Start 05/04/16 at 07 :30 Levetiracetam (Keppra Liquid) 1,000 mg Q12 GTB Last administered on 05/24/16 10 :02; Admin Dose 1,000 MG; Start 05/04/16 at 09:00 Multivitamins (Thera-Plus) 5 ml DAILY GTB Last administered on 05/24/16 10:02; Admin Dose 5 ML; Start 05/04/16 at 09:00 Miscellaneous Information 1 ea NOTE XX ; Start 05/04/16 at 09:00 Glucose (Glutose) 15 gm Q15M PRN PO DECREASED GLUCOSE; Start 05/04/16 at 09:00 Glucose (Glutose) 22.5 gm Q15M PRN PO DECREASED GLUCOSE; Start 05/04/16 at 09: 00 Dextrose (D50w Syringe) 25 ml Q15M PRN IV DECREASED GLUCOSE; Start 05/04/16 at 09:00 Dextrose (D50w Syringe) 50 ml Q15M PRN IV DECREASED GLUCOSE; Start 05/04/16 at 09:00 Glucagon (Glucagen) 1 mg Q15M PRN IM DECREASED GLUCOSE; Start 05/04/16 at 09: 00 Glucose (Glutose) 15 gm Q15M PRN BUCCAL DECREASED GLUCOSE; Start 05/04/16 at 09:00 Acetaminophen (Tylenol Liquid) 650 mg Q6H PRN GTB PAIN LEVEL 1-3 OR FEVER Last administered on 05/20/16at 05:00; Admin Dose 650 MG; Start 05/04/16 at 18:30 Metronidazole (Flagyl) 500 mg Q8 GTB Last administered on 05/24/16 14:01; Admin Dose 500 MG; Start 05/05/16 at 14:00 Collagenase (Santyl) APPLY TO NECROTIC TISSUE DAILY TOP Last administered on 10:03; Admin Dose 1 APPLIC; Start 05/06/16 at 16:30 Collagenase (Santyl) APPLY TO NECROTIC AREA PRN PRN TOP SOILING Last administered on 05/21/16at 22:04; Admin Dose 3 APPLIC; Start 05/06/16 at 16:00 Aspirin (Aspirin) 81 mg DAILY GTB Last administered on 05/24/16 10:02; Admin Dose 81 MG; Start 05/10/16 at 09:00 Ascorbic Acid (Vitamin C) 500 mg DAILY GTB Last administered on 05/24/16 10:02 ; Admin Dose 500 MG; Start 05/10/16 at 11:00 Famotidine (Pepcid) 20 mg DAILY GTB Last administered on 05/24/16 10:02; Admin Dose 20 MG; Start 05/10/16 at 11:00 Acetaminophen/ Hydrocodone Bitart ([place] (5/325)) 1 tab Q6H PRN GTB MODERATE PAIN LEVEL 4-6; Start 05/10/16 at 13:30 Metoclopramide HCl (Reglan Liq) 10 mg Q6 GTB Last administered on 05/24/16 14: 01; Admin Dose 10 MG; Start 05/10/16 at 18:00 Hydralazine HCl (Apresoline) 25 mg Q8H GTB Last administered on 05/24/16 14:02 ; Admin Dose 25 MG; Start 05/14/16 at 20:00 Insulin Glargine (Lantus) 14 unit QPM SC Last administered on 05/23/16 21:47; Admin Dose 14 UNIT; Start 05/14/16 at 21:00 Citric Acid/ Sodium Citrate 30 ml 30 ml TID PO Last administered on 05/24/16 14 :01; Admin Dose 30 ML; Start 05/15/16 at 21:00 Colistimethate Sodium/Sodium Chloride (Coly-Mycin/NS) 100 ml @ 50 mls/hr Q12 IVPB Last administered on 05/24/16 10:02; Admin Dose 50 MLS/HR; Start at 13:30 Insulin Aspart NOVOLOG *MODERATE* ALGORITHM Q8 SC ; Start 05/20/16 at 14:00 Daptomycin 540 mg/ Sodium Chloride 100 ml @ 200 mls/hr Q24H IVPB Last administered on 05/24/16 14:02; Admin Dose 200 MLS/HR; Start 05/21/16 at 14:30 Sodium Chloride (12 NS) 1,000 ml @ 60 mls/hr [id number] IV ; Start 05/24/16 at 14: 30 CECILIA IGLESIAS MD May 24, 2016 14:27
[2016-05-24] MEDS: SOD CHLORIDE 0.45% 1,000 ML IV SCH (15:37)
[2016-05-24] MEDS: ATORVASTATIN 20 MG TAB GTB SCH (20:55)
[2016-05-24] MEDS: INSULIN GLARGINE [LANtus] 3 ML PEN SC SCH (21:00)
[2016-05-25] VITALS (23 sets, daily range): BP systolic 103–128; BP diastolic 60–74; PULSE 96–108; RESP 14–22
[2016-05-25] MEDS: METOCLOPRAMIDE (1 MG/ML) 10 ML CUP GTB SCH ×4 (00:43→18:20)
[2016-05-25] MEDS: COLLAGENASE 30 GM TUBE TOP SCH (04:42)
[2016-05-25] MEDS: INSULIN ASPART [NOVOLOG] 3 ML PEN SC SCH ×3 (06:00→21:08)
[2016-05-25 06:03] LABS: POTASSIUM 4.2 mmol/L (3.5-5.1)
[2016-05-25 06:05] LABS: CREATININE 1.81 mg/dl (0.44-1.00)
[2016-05-25 06:06] LABS: CALCIUM 7.9 mg/dl (8.4-10.2)
[2016-05-25] MEDS: metroNIDAZOLE 500 MG TAB GTB SCH ×3 (06:24→21:07)
[2016-05-25] MEDS: SOD CHLORIDE 0.45% 1,000 ML IV SCH ×3 (09:32→23:50)
[2016-05-25] MEDS: CITRIC ACID/NA CITRATE 30 ML CUP PO SCH ×3 (09:32→21:08)
[2016-05-25] MEDS: LEVETIRACETAM (100 MG/ML) 5ML CUP GTB SCH ×2 (09:32→21:08)
[2016-05-25] MEDS: MULTIVITAMINS 5 ML CUP GTB SCH (09:32)
[2016-05-25] MEDS: ASPIRIN 81 MG TAB GTB SCH (09:33)
[2016-05-25] MEDS: FAMOTIDINE 20 MG TAB GTB SCH (09:33)
[2016-05-25] MEDS: ASCORBIC ACID 500 MG TAB GTB SCH (09:33)
[2016-05-25] MEDS ORDERED: COLISTIMETHATE 135 MG in SOD CHLORIDE 0.9% 100 ML IVPB SCH (11:00)
--- NOTE | 2016-05-25 11:20 | PN ---
Date/Time of Note Date/Time of Note DATE: 05/25/16 TIME: 11:17 Assessment/Plan VTE Prophylaxis VTE Prophylaxis Intervention: SCD's Lines/Catheters IV Catheter Type (from Nrs): Peripheral IV Urinary Cath still in place: Yes Reason Cath still needed: other (indicate) Assessment/Plan Chief Complaint/Hosp Course ASSESSMENT AND PLAN: 1. Sepsis, likely secondary to urinary tract infection versus sacral decubitus. The patient has been started on Tygacil , flagyl, and V.fend as per ID recommendations . Follow up infectious disease recommendations. 2. Ventilator-dependent respiratory failure, status post trach. Pulmonology has been consulted. 3. Acute renal insufficiency, improving status post IVF, likely secondary to sepsis versus dehydration. nephrology consulted. Continue IV fluids. 4. Diabetes mellitus. Continue sliding scale and Lantus. 5. History of cerebrovascular accident. No acute issues at this time. Patient is bed bound and a phasic Unstageable sacral decubitus, possible osteomyelitis with a history of multiple debridements. 6. 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 7. Seizure disorder. 8. Chronic encephalopathy. 9. Urinary tract infection===> MDRO, urine culture KLEB PNEUMONIAE CARBAPENEMASE, follow up in infectious disease recommendations 10. Essential Hypertension, continue to monitor restart blood pressure medications cautiously 11. C. difficile toxin, repeat stool negative for C. difficile , follow-up ID recommendations to discontinue Flagyl 12. Hypokalemia, repleted 13. Hypernatremia, resolved We will continue monitor patient closely for recommendation management treatment as per clinical course Condition guarded Continue to monitor in telemetry floor [facility] available We will follow up with infectious disease physician regarding isolation status and discharge Problems: Subjective 24 Hr Interval Summary Free Text/Dictation No acute changes Tolerating PEG tube feeding Exam/Review of Systems Vital Signs Vitals Vital Signs Date Time Temp Pulse Resp B/P Pulse Ox O2 Delivery O2 Flow Rate FiO2 05/25/16 09:57 97 14 100 30 05/25/16 07:56 98.2 113/70 Intake and Output 05/24/16 05/24/16 05/25/16 15:00 23:00 07:00 Intake Total 980 ml 610 ml Output Total 400 ml 1200 ml Balance 580 ml -590 ml Exam Exam General: The patient is a phasic, on vent via trach, does not respond to any pain or verbal stimuli HEENT: Atraumatic, normocephalic. The pupils are equal Neck: Supple , trach in place Chest: Normal Lungs: Decreased breath sounds bilateral lower lung field, positive crackles Heart: Normal S1-S2, Regular rhythm and rate. Abdomen: Soft , nontender, nondistended , bowel sounds are present. PEG tube in place Extremities: Flaccid, + 2 edema no cyanosis Neurologic: No meaningful neurologic examination findings Skin: Stage IV sacral decubitus Results Result Diagram: 05/23/16 1205 05/25/16 0535 Results 24 hrs Laboratory Tests Test 05/24/16 14:09 05/24/16 21:11 05/25/16 05:35 05/25/16 06:25 Bedside Glucose 96 77 79 Anion Gap 15 Blood Urea Nitrogen 36 H Calcium Level 7.9 L Carbon Dioxide Level 23 Chloride Level 107 Creatinine 1.81 H Glucose Level 67 L Potassium Level 4.2 Sodium Level 141 Medications Medications Current Medications Morphine Sulfate (morphine) 2 mg Q4H PRN IV SEVERE PAIN LEVEL 7-10 Last administered on 05/07/16at 18:26; Admin Dose 2 MG; Start 05/04/16 at 07:30 Docusate Sodium (Colace) 100 mg Q12H PRN [place] CONSTIPATION; Start 05/04/16 at 07 :30 Lorazepam (Ativan) 0.5 mg Q6H PRN IV ANXIETY Last administered on 05/06/16at 23 :58; Admin Dose 0.5 MG; Start 05/04/16 at 07:30 Hydralazine HCl (Apresoline) 10 mg Q6H PRN IV ELEVATED BLOOD PRESSURE; Start 05/04/16 at 07:30 Nitroglycerin (Nitroglycerin (Sl Tab) 0.4 Mg) 1 tab Q5M PRN SL ANGINA; Start 05/04/16 at 07:30 Acetaminophen (Tylenol Supp) 650 mg Q4 PRN [place] PAIN OR TEMP ABOVE 38C; Start at 07:30 Atorvastatin Calcium (Lipitor) 20 mg QHS GTB Last administered on 05/24/16t 20: 55; Admin Dose 20 MG; Start 05/04/16 at 21:00 Bisacodyl (Dulcolax Supp) 10 mg Q24H PRN [place] CONSTIPATION; Start 05/04/16 at 07 :30 Levetiracetam (Keppra Liquid) 1,000 mg Q12 GTB Last administered on 05/25/16 09 :32; Admin Dose 1,000 MG; Start 05/04/16 at 09:00 Multivitamins (Thera-Plus) 5 ml DAILY GTB Last administered on 05/25/16 09:32; Admin Dose 5 ML; Start 05/04/16 at 09:00 Miscellaneous Information 1 ea NOTE XX ; Start 05/04/16 at 09:00 Glucose (Glutose) 15 gm Q15M PRN PO DECREASED GLUCOSE; Start 05/04/16 at 09:00 Glucose (Glutose) 22.5 gm Q15M PRN PO DECREASED GLUCOSE; Start 05/04/16 at 09: 00 Dextrose (D50w Syringe) 25 ml Q15M PRN IV DECREASED GLUCOSE; Start 05/04/16 at 09:00 Dextrose (D50w Syringe) 50 ml Q15M PRN IV DECREASED GLUCOSE; Start 05/04/16 at 09:00 Glucagon (Glucagen) 1 mg Q15M PRN IM DECREASED GLUCOSE; Start 05/04/16 at 09: 00 Glucose (Glutose) 15 gm Q15M PRN BUCCAL DECREASED GLUCOSE; Start 05/04/16 at 09:00 Acetaminophen (Tylenol Liquid) 650 mg Q6H PRN GTB PAIN LEVEL 1-3 OR FEVER Last administered on 05/20/16at 05:00; Admin Dose 650 MG; Start 05/04/16 at 18:30 Metronidazole (Flagyl) 500 mg Q8 GTB Last administered on 05/25/16 06:24; Admin Dose 500 MG; Start 05/05/16 at 14:00 Collagenase (Santyl) APPLY TO NECROTIC TISSUE DAILY TOP Last administered on 04:42; Admin Dose 1 APPLIC; Start 05/06/16 at 16:30 Collagenase (Santyl) APPLY TO NECROTIC AREA PRN PRN [place] SOILING Last administered on 05/21/16at 22:04; Admin Dose 3 APPLIC; Start 05/06/16 at 16:00 Aspirin (Aspirin) 81 mg DAILY GTB Last administered on 05/25/16 09:33; Admin Dose 81 MG; Start 05/10/16 at 09:00 Ascorbic Acid (Vitamin C) 500 mg DAILY GTB Last administered on 05/25/16 09:33 ; Admin Dose 500 MG; Start 05/10/16 at 11:00 Famotidine (Pepcid) 20 mg DAILY GTB Last administered on 05/25/16 09:33; Admin Dose 20 MG; Start 05/10/16 at 11:00 Acetaminophen/ Hydrocodone Bitart ([place] (5/325)) 1 tab Q6H PRN GTB MODERATE PAIN LEVEL 4-6; Start 05/10/16 at 13:30 Metoclopramide HCl (Reglan Liq) 10 mg Q6 GTB Last administered on 05/25/16 06: 23; Admin Dose 10 MG; Start 05/10/16 at 18:00 Hydralazine HCl (Apresoline) 25 mg Q8H GTB Last administered on 05/25/16 04:40 ; Admin Dose 25 MG; Start 05/14/16 at 20:00 Insulin Glargine (Lantus) 14 unit QPM SC Last administered on 05/23/16 21:47; Admin Dose 14 UNIT; Start 05/14/16 at 21:00 Citric Acid/ Sodium Citrate (Bicitra) 30 ml TID PO Last administered on 09:32; Admin Dose 30 ML; Start 05/15/16 at 21:00 Insulin Aspart NOVOLOG *MODERATE* ALGORITHM Q8 SC ; Start 05/20/16 at 14:00 Daptomycin 540 mg/ Sodium Chloride 100 ml @ 200 mls/hr Q24H IVPB Last administered on 05/24/16 14:02; Admin Dose 200 MLS/HR; Start 05/21/16 at 14:30 Sodium Chloride 1,000 ml @ 60 mls/hr [id number] IV Last administered on 05/24/16 15:37; Admin Dose 60 MLS/HR; Start 05/24/16 at 14:30 Colistimethate Sodium/Sodium Chloride (Coly-Mycin/NS) 100 ml @ 50 mls/hr Q24H IVPB ; Start 05/25/16 at 11:00 AMY HANKINS MD May 25, 2016 11:20
--- NOTE | 2016-05-25 12:07 | CONS ---
Date/Time of Note Date/Time of Note DATE: 05/25/16 TIME: 12:06 Consult Date/Type/Reason Admit Date/Time May 04, 2016 at 05:51 Type of Consultation: ID Ordering Provider: AMY HANKINS MD Subjective no events per RN, no fevers, noncommunicative, comfortable on vent Objective Vital Signs Date Time Temp Pulse Resp B/P Pulse Ox O2 Delivery O2 Flow Rate FiO2 05/25/16 11:50 98.5 104 18 116/66 100 05/25/16 11:22 30 Intake and Output 05/24/16 05/24/16 05/25/16 15:00 23:00 07:00 Intake Total 980 ml 610 ml Output Total 400 ml 1200 ml Balance 580 ml -590 ml Results/Medications Result Diagram: 05/23/16 1205 05/25/16 0535 Results 24 hrs Laboratory Tests Test 05/24/16 14:09 05/24/16 21:11 05/25/16 05:35 05/25/16 06:25 Bedside Glucose 96 77 79 Anion Gap 15 Blood Urea Nitrogen 36 H Calcium Level 7.9 L Carbon Dioxide Level 23 Chloride Level 107 Creatinine 1.81 H Glucose Level 67 L Potassium Level 4.2 Sodium Level 141 Medications Current Medications Morphine Sulfate (morphine) 2 mg Q4H PRN IV SEVERE PAIN LEVEL 7-10 Last administered on 05/07/16at 18:26; Admin Dose 2 MG; Start 05/04/16 at 07:30 Docusate Sodium (Colace) 100 mg Q12H PRN [place] CONSTIPATION; Start 05/04/16 at 07 :30 Lorazepam (Ativan) 0.5 mg Q6H PRN IV ANXIETY Last administered on 05/06/16at 23 :58; Admin Dose 0.5 MG; Start 05/04/16 at 07:30 Hydralazine HCl (Apresoline) 10 mg Q6H PRN IV ELEVATED BLOOD PRESSURE; Start 05/04/16 at 07:30 Nitroglycerin (Nitroglycerin (Sl Tab) 0.4 Mg) 1 tab Q5M PRN SL ANGINA; Start 05/04/16 at 07:30 Acetaminophen (Tylenol Supp) 650 mg Q4 PRN [place] PAIN OR TEMP ABOVE 38C; Start at 07:30 Atorvastatin Calcium (Lipitor) 20 mg QHS GTB Last administered on 05/24/16 20: 55; Admin Dose 20 MG; Start 05/04/16 at 21:00 Bisacodyl (Dulcolax Supp) 10 mg Q24H PRN [place] CONSTIPATION; Start 05/04/16 at 07 :30 Levetiracetam (Keppra Liquid) 1,000 mg Q12 GTB Last administered on 05/25/16 09 :32; Admin Dose 1,000 MG; Start 05/04/16 at 09:00 Multivitamins (Thera-Plus) 5 ml DAILY GTB Last administered on 05/25/16 09:32; Admin Dose 5 ML; Start 05/04/16 at 09:00 Miscellaneous Information 1 ea NOTE XX ; Start 05/04/16 at 09:00 Glucose (Glutose) 15 gm Q15M PRN PO DECREASED GLUCOSE; Start 05/04/16 at 09:00 Glucose (Glutose) 22.5 gm Q15M PRN PO DECREASED GLUCOSE; Start 05/04/16 at 09: 00 Dextrose (D50w Syringe) 25 ml Q15M PRN IV DECREASED GLUCOSE; Start 05/04/16 at 09:00 Dextrose (D50w Syringe) 50 ml Q15M PRN IV DECREASED GLUCOSE; Start 05/04/16 at 09:00 Glucagon (Glucagen) 1 mg Q15M PRN IM DECREASED GLUCOSE; Start 05/04/16 at 09: 00 Glucose (Glutose) 15 gm Q15M PRN BUCCAL DECREASED GLUCOSE; Start 05/04/16 at 09:00 Acetaminophen (Tylenol Liquid) 650 mg Q6H PRN GTB PAIN LEVEL 1-3 OR FEVER Last administered on 05/20/16at 05:00; Admin Dose 650 MG; Start 05/04/16 at 18:30 Metronidazole (Flagyl) 500 mg Q8 GTB Last administered on 05/25/16 06:24; Admin Dose 500 MG; Start 05/05/16 at 14:00 Collagenase (Santyl) APPLY TO NECROTIC TISSUE DAILY TOP Last administered on 04:42; Admin Dose 1 APPLIC; Start 05/06/16 at 16:30 Collagenase (Santyl) APPLY TO NECROTIC AREA PRN PRN TOP SOILING Last administered on 05/21/16at 22:04; Admin Dose 3 APPLIC; Start 05/06/16 at 16:00 Aspirin (Aspirin) 81 mg DAILY GTB Last administered on 05/25/16 09:33; Admin Dose 81 MG; Start 05/10/16 at 09:00 Ascorbic Acid (Vitamin C) 500 mg DAILY GTB Last administered on 05/25/16 09:33 ; Admin Dose 500 MG; Start 05/10/16 at 11:00 Famotidine (Pepcid) 20 mg DAILY GTB Last administered on 05/25/16 09:33; Admin Dose 20 MG; Start 05/10/16 at 11:00 Acetaminophen/ Hydrocodone Bitart ([place] (5/325)) 1 tab Q6H PRN GTB MODERATE PAIN LEVEL 4-6; Start 05/10/16 at 13:30 Metoclopramide HCl (Reglan Liq) 10 mg Q6 GTB Last administered on 05/25/16 06: 23; Admin Dose 10 MG; Start 05/10/16 at 18:00 Hydralazine HCl (Apresoline) 25 mg Q8H GTB Last administered on 05/25/16 04:40 ; Admin Dose 25 MG; Start 05/14/16 at 20:00 Insulin Glargine (Lantus) 14 unit QPM SC Last administered on 05/23/16 21:47; Admin Dose 14 UNIT; Start 05/14/16 at 21:00 Citric Acid/ Sodium Citrate (Bicitra) 30 ml TID PO Last administered on 09:32; Admin Dose 30 ML; Start 05/15/16 at 21:00 Insulin Aspart NOVOLOG *MODERATE* ALGORITHM Q8 SC ; Start 05/20/16 at 14:00 Daptomycin 540 mg/ Sodium Chloride 100 ml @ 200 mls/hr Q24H IVPB Last administered on 05/24/16 14:02; Admin Dose 200 MLS/HR; Start 05/21/16 at 14:30 Sodium Chloride 1,000 ml @ 60 mls/hr [id number] IV Last administered on 05/24/16 15:37; Admin Dose 60 MLS/HR; Start 05/24/16 at 14:30 Colistimethate Sodium/Sodium Chloride (Coly-Mycin/NS) 100 ml @ 50 mls/hr Q24H IVPB Last administered on 05/25/16 11:32; Admin Dose 50 MLS/HR; Start 05/25/16 at 11:00 Assessment/Plan Chief Complaint/Hosp Course INDWELLINGS: Trach, PEG, Reynolds, LOGISTICS SYSTEM ENGINEER shunt. ANTIMICROBIALS: Daptomycin Flagyl Colistin PHYSICAL EXAMINATION: GENERAL: This is a chronically ill-appearing, middle-aged woman who is obtunded in no distress. HEENT: Head atraumatic, normocephalic. Sclerae anicteric. Buccal mucosa dry. NECK: Supple. Tracheostomy present. CHEST: Rise symmetrical. Breath sounds diminished at the bases. HEART: S1, S2. ABDOMEN: Soft, bowel tones present. EXTREMITIES: Without cyanosis. ASSESSMENT: 1. S/p sepsis with shock. 2. Clostridium difficile colitis. 3. Unstageable sacral decubitus, possible osteomyelitis with a history of multiple debridements. 4. History of methicillin-resistant Staphylococcus aureus infected ventriculoperitoneal shunt removal with new LOGISTICS SYSTEM ENGINEER shunt placement. 5. Seizure disorder. 6. Chronic encephalopathy. 7. Urinary tract infection===> MDRO. 8. A/CKD PLAN: Clinically unchanged, continue abx, consider surgical eval for poss wound debridement DW staff DW staff Problems: DUTCH STEELE NP May 25, 2016 12:07
[2016-05-25] MEDS: DAPTOMYCIN 540 MG in SOD CHLORIDE 0.9% 100 ML IVPB SCH (13:55)
--- NOTE | 2016-05-25 16:04 | CONS ---
Date/Time of Note Date/Time of Note DATE: 05/25/16 TIME: 16:03 Consult Date/Type/Reason Admit Date/Time May 04, 2016 at 05:51 Type of Consultation: Pulm Ordering Provider: AMY HANKINS MD Subjective Comfortable. Objective Vital Signs Date Time Temp Pulse Resp B/P Pulse Ox O2 Delivery O2 Flow Rate FiO2 05/25/16 15:50 98.5 104 20 116/71 100 05/25/16 14:42 30 Intake and Output 05/24/16 05/24/16 05/25/16 15:00 23:00 07:00 Intake Total 980 ml 610 ml Output Total 400 ml 1200 ml Balance 580 ml -590 ml VITAL SIGNS: as above NECK: Trach site clean and intact. CARDIAC: S1, S2, no added sounds or murmurs. CHEST: Diminished air entry bilaterally. No rales or wheezes. ABDOMEN: Soft, nontender. No guarding or rebound. EXTREMITIES: No cyanosis, clubbing, edema. NEUROLOGIC: Generalized weakness, unable to assess. Results/Medications Result Diagram: 05/23/16 1205 05/25/16 0535 Results 24 hrs Laboratory Tests Test 05/24/16 21:11 05/25/16 05:35 05/25/16 06:25 05/25/16 14:03 Bedside Glucose 77 79 100 Anion Gap 15 Blood Urea Nitrogen 36 H Calcium Level 7.9 L Carbon Dioxide Level 23 Chloride Level 107 Creatinine 1.81 H Glucose Level 67 L Potassium Level 4.2 Sodium Level 141 Medications Current Medications Morphine Sulfate (morphine) 2 mg Q4H PRN IV SEVERE PAIN LEVEL 7-10 Last administered on 05/07/16at 18:26; Admin Dose 2 MG; Start 05/04/16 at 07:30 Docusate Sodium (Colace) 100 mg Q12H PRN PO CONSTIPATION; Start 05/04/16 at 07 :30 Lorazepam (Ativan) 0.5 mg Q6H PRN IV ANXIETY Last administered on 05/06/16at 23 :58; Admin Dose 0.5 MG; Start 05/04/16 at 07:30 Hydralazine HCl (Apresoline) 10 mg Q6H PRN IV ELEVATED BLOOD PRESSURE; Start 05/04/16 at 07:30 Nitroglycerin (Nitroglycerin (Sl Tab) 0.4 Mg) 1 tab Q5M PRN SL ANGINA; Start 05/04/16 at 07:30 Acetaminophen (Tylenol Supp) 650 mg Q4 PRN [place] PAIN OR TEMP ABOVE 38C; Start at 07:30 Atorvastatin Calcium (Lipitor) 20 mg QHS GTB Last administered on 05/24/16 20: 55; Admin Dose 20 MG; Start 05/04/16 at 21:00 Bisacodyl (Dulcolax Supp) 10 mg Q24H PRN [place] CONSTIPATION; Start 05/04/16 at 07 :30 Levetiracetam (Keppra Liquid) 1,000 mg Q12 GTB Last administered on 05/25/16 09 :32; Admin Dose 1,000 MG; Start 05/04/16 at 09:00 Multivitamins (Thera-Plus) 5 ml DAILY GTB Last administered on 05/25/16 09:32; Admin Dose 5 ML; Start 05/04/16 at 09:00 Miscellaneous Information 1 ea NOTE XX ; Start 05/04/16 at 09:00 Glucose (Glutose) 15 gm Q15M PRN PO DECREASED GLUCOSE; Start 05/04/16 at 09:00 Glucose (Glutose) 22.5 gm Q15M PRN PO DECREASED GLUCOSE; Start 05/04/16 at 09: 00 Dextrose (D50w Syringe) 25 ml Q15M PRN IV DECREASED GLUCOSE; Start 05/04/16 at 09:00 Dextrose (D50w Syringe) 50 ml Q15M PRN IV DECREASED GLUCOSE; Start 05/04/16 at 09:00 Glucagon (Glucagen) 1 mg Q15M PRN IM DECREASED GLUCOSE; Start 05/04/16 at 09: 00 Glucose (Glutose) 15 gm Q15M PRN BUCCAL DECREASED GLUCOSE; Start 05/04/16 at 09:00 Acetaminophen (Tylenol Liquid) 650 mg Q6H PRN GTB PAIN LEVEL 1-3 OR FEVER Last administered on 05/20/16at 05:00; Admin Dose 650 MG; Start 05/04/16 at 18:30 Metronidazole (Flagyl) 500 mg Q8 GTB Last administered on 05/25/16 13:55; Admin Dose 500 MG; Start 05/05/16 at 14:00 Collagenase (Santyl) APPLY TO NECROTIC TISSUE DAILY TOP Last administered on 04:42; Admin Dose 1 APPLIC; Start 05/06/16 at 16:30 Collagenase (Santyl) APPLY TO NECROTIC AREA PRN PRN TOP SOILING Last administered on 05/21/16at 22:04; Admin Dose 3 APPLIC; Start 05/06/16 at 16:00 Aspirin (Aspirin) 81 mg DAILY GTB Last administered on 05/25/16 09:33; Admin Dose 81 MG; Start 05/10/16 at 09:00 Ascorbic Acid (Vitamin C) 500 mg DAILY GTB Last administered on 05/25/16 09:33 ; Admin Dose 500 MG; Start 05/10/16 at 11:00 Famotidine (Pepcid) 20 mg DAILY GTB Last administered on 05/25/16 09:33; Admin Dose 20 MG; Start 05/10/16 at 11:00 Acetaminophen/ Hydrocodone Bitart ([place] (5/325)) 1 tab Q6H PRN GTB MODERATE PAIN LEVEL 4-6; Start 05/10/16 at 13:30 Metoclopramide HCl (Reglan Liq) 10 mg Q6 GTB Last administered on 05/25/16 12: 21; Admin Dose 10 MG; Start 05/10/16 at 18:00 Hydralazine HCl (Apresoline) 25 mg Q8H GTB Last administered on 05/25/16 12:21 ; Admin Dose 25 MG; Start 05/14/16 at 20:00 Insulin Glargine (Lantus) 14 unit QPM SC Last administered on 05/23/16 21:47; Admin Dose 14 UNIT; Start 05/14/16 at 21:00 Citric Acid/ Sodium Citrate (Bicitra) 30 ml TID PO Last administered on 12:21; Admin Dose 30 ML; Start 05/15/16 at 21:00 Insulin Aspart NOVOLOG *MODERATE* ALGORITHM Q8 SC ; Start 05/20/16 at 14:00 Daptomycin 540 mg/ Sodium Chloride 100 ml @ 200 mls/hr Q24H IVPB Last administered on 05/25/16 13:55; Admin Dose 200 MLS/HR; Start 05/21/16 at 14:30 Sodium Chloride 1,000 ml @ 60 mls/hr [id number] IV Last administered on 1/2/17at 15:37; Admin Dose 60 MLS/HR; Start 05/24/16 at 14:30 Colistimethate Sodium/Sodium Chloride (Coly-Mycin/NS) 100 ml @ 50 mls/hr Q24H IVPB Last administered on 05/25/16t 11:32; Admin Dose 50 MLS/HR; Start 05/25/16 at 11:00 Assessment/Plan Chief Complaint/Hosp Course IMPRESSION AND PLAN 1. Chronic vent dependent respiratory failure. 2. Chronic encephalopathy. 3. Anemia of chronic disease. 4. Resolving sepsis. 5. Dysphagia with G-tube. The patient will require 1. Continued antibiotics per ID. 2. Vent support. 3. Wound care. 4. DVT and GI prophylaxis. 5. Monitor Hb. dc planning. Problems: JIMMY GONSALEZ MD, [facility] May 25, 2016 16:04
--- NOTE | 2016-05-25 17:02 | CONS ---
Date/Time of Note Date/Time of Note DATE: 05/25/16 TIME: 17:00 Assessment/Plan Assessment/Plan Chief Complaint/Hosp Course IMPRESSION: 1. Patient has [id number] kidney disease. 2. Acute renal failure due to dehydration.BETTER 3. Underlying acute tubular necrosis due to sepsis/meds. 4. Severe sepsis. 5. hypernatremia.better 6. Free water deficit.BETTER 7. RES FAILURE 8. Lactic acidosis.BETTER 9. vdrf. 10. Anemia. 11. History of tracheostomy. 12 METABOLIC ACIDOSIS better PLAN [facility] avoid nephrotoxic drugs iv fluid Problems: Consultation Date/Type/Reason Admit Date/Time May 04, 2016 at 05:51 Type of Consultation: renal Referring Provider: AMY HANKINS MD 24 HR Interval Summary Subjective hx not possible: pt non-verbal Exam/Review of Systems Vital Signs Vitals Vital Signs Date Time Temp Pulse Resp B/P Pulse Ox O2 Delivery O2 Flow Rate FiO2 05/25/16 15:50 98.5 104 20 116/71 100 05/25/16 14:42 30 Intake and Output 05/24/16 05/24/16 05/25/16 15:00 23:00 07:00 Intake Total 980 ml 610 ml Output Total 400 ml 1200 ml Balance 580 ml -590 ml Exam Neck: supple Respiratory: clear to auscultation Cardiovascular: regular rate and rhythm Gastrointestinal: soft Musculoskeletal: nl extremities to inspection Extremities: normal pulses Results Result Diagram: 05/23/16 1205 05/25/16 0535 Results 24 hrs Laboratory Tests Test 05/24/16 21:11 05/25/16 05:35 05/25/16 06:25 05/25/16 14:03 Bedside Glucose 77 79 100 Anion Gap 15 Blood Urea Nitrogen 36 H Calcium Level 7.9 L Carbon Dioxide Level 23 Chloride Level 107 Creatinine 1.81 H Glucose Level 67 L Potassium Level 4.2 Sodium Level 141 Medications Medications Current Medications Morphine Sulfate (morphine) 2 mg Q4H PRN IV SEVERE PAIN LEVEL 7-10 Last administered on 05/07/16at 18:26; Admin Dose 2 MG; Start 05/04/16 at 07:30 Docusate Sodium (Colace) 100 mg Q12H PRN PO CONSTIPATION; Start 05/04/16 at 07 :30 Lorazepam (Ativan) 0.5 mg Q6H PRN IV ANXIETY Last administered on 05/06/16at 23 :58; Admin Dose 0.5 MG; Start 05/04/16 at 07:30 Hydralazine HCl (Apresoline) 10 mg Q6H PRN IV ELEVATED BLOOD PRESSURE; Start 05/04/16 at 07:30 Nitroglycerin (Nitroglycerin (Sl Tab) 0.4 Mg) 1 tab Q5M PRN SL ANGINA; Start 05/04/16 at 07:30 Acetaminophen (Tylenol Supp) 650 mg Q4 PRN [place] PAIN OR TEMP ABOVE 38C; Start at 07:30 Atorvastatin Calcium (Lipitor) 20 mg QHS GTB Last administered on 05/24/16 20: 55; Admin Dose 20 MG; Start 05/04/16 at 21:00 Bisacodyl (Dulcolax Supp) 10 mg Q24H PRN [place] CONSTIPATION; Start 05/04/16 at 07 :30 Levetiracetam (Keppra Liquid) 1,000 mg Q12 GTB Last administered on 05/25/16 09 :32; Admin Dose 1,000 MG; Start 05/04/16 at 09:00 Multivitamins (Thera-Plus) 5 ml DAILY GTB Last administered on 05/25/16 09:32; Admin Dose 5 ML; Start 05/04/16 at 09:00 Miscellaneous Information 1 ea NOTE XX ; Start 05/04/16 at 09:00 Glucose (Glutose) 15 gm Q15M PRN PO DECREASED GLUCOSE; Start 05/04/16 at 09:00 Glucose (Glutose) 22.5 gm Q15M PRN PO DECREASED GLUCOSE; Start 05/04/16 at 09: 00 Dextrose (D50w Syringe) 25 ml Q15M PRN IV DECREASED GLUCOSE; Start 05/04/16 at 09:00 Dextrose (D50w Syringe) 50 ml Q15M PRN IV DECREASED GLUCOSE; Start 05/04/16 at 09:00 Glucagon (Glucagen) 1 mg Q15M PRN IM DECREASED GLUCOSE; Start 05/04/16 at 09: 00 Glucose (Glutose) 15 gm Q15M PRN BUCCAL DECREASED GLUCOSE; Start 05/04/16 at 09:00 Acetaminophen (Tylenol Liquid) 650 mg Q6H PRN GTB PAIN LEVEL 1-3 OR FEVER Last administered on 05/20/16at 05:00; Admin Dose 650 MG; Start 05/04/16 at 18:30 Metronidazole (Flagyl) 500 mg Q8 GTB Last administered on 05/25/16 13:55; Admin Dose 500 MG; Start 05/05/16 at 14:00 Collagenase (Santyl) APPLY TO NECROTIC TISSUE DAILY TOP Last administered on 04:42; Admin Dose 1 APPLIC; Start 05/06/16 at 16:30 Collagenase (Santyl) APPLY TO NECROTIC AREA PRN PRN [place] SOILING Last administered on 05/21/16at 22:04; Admin Dose 3 APPLIC; Start 05/06/16 at 16:00 Aspirin (Aspirin) 81 mg DAILY GTB Last administered on 05/25/16 09:33; Admin Dose 81 MG; Start 05/10/16 at 09:00 Ascorbic Acid (Vitamin C) 500 mg DAILY GTB Last administered on 05/25/16 09:33 ; Admin Dose 500 MG; Start 05/10/16 at 11:00 Famotidine (Pepcid) 20 mg DAILY GTB Last administered on 05/25/16 09:33; Admin Dose 20 MG; Start 05/10/16 at 11:00 Acetaminophen/ Hydrocodone Bitart ([place] (5/325)) 1 tab Q6H PRN GTB MODERATE PAIN LEVEL 4-6; Start 05/10/16 at 13:30 Metoclopramide HCl (Reglan Liq) 10 mg Q6 GTB Last administered on 05/25/16 12: 21; Admin Dose 10 MG; Start 05/10/16 at 18:00 Hydralazine HCl (Apresoline) 25 mg Q8H GTB Last administered on 05/25/16 12:21 ; Admin Dose 25 MG; Start 05/14/16 at 20:00 Insulin Glargine (Lantus) 14 unit QPM SC Last administered on 05/23/16 21:47; Admin Dose 14 UNIT; Start 05/14/16 at 21:00 Citric Acid/ Sodium Citrate (Bicitra) 30 ml TID PO Last administered on 12:21; Admin Dose 30 ML; Start 05/15/16 at 21:00 Insulin Aspart NOVOLOG *MODERATE* ALGORITHM Q8 SC ; Start 12/29/16 at 14:00 Daptomycin 540 mg/ Sodium Chloride 100 ml @ 200 mls/hr Q24H IVPB Last administered on 05/25/16 13:55; Admin Dose 200 MLS/HR; Start 05/21/16 at 14:30 Sodium Chloride 1,000 ml @ 60 mls/hr [id number] IV Last administered on 05/24/16 15:37; Admin Dose 60 MLS/HR; Start 05/24/16 at 14:30 Colistimethate Sodium/Sodium Chloride (Coly-Mycin/NS) 100 ml @ 50 mls/hr Q24H IVPB Last administered on 05/25/16 11:32; Admin Dose 50 MLS/HR; Start 05/25/16 at 11:00 AMBER LIEBERMAN MD May 25, 2016 17:02
[2016-05-25] MEDS: ATORVASTATIN 20 MG TAB GTB SCH (21:08)
[2016-05-25] MEDS: INSULIN GLARGINE [LANtus] 3 ML PEN SC SCH (21:26)
[2016-05-26] VITALS (24 sets, daily range): BP systolic 112–128; BP diastolic 65–79; PULSE 92–106; RESP 14–20
[2016-05-26] MEDS: METOCLOPRAMIDE (1 MG/ML) 10 ML CUP GTB SCH ×4 (01:28→18:54)
[2016-05-26 05:55] LABS: BASOPHILS % 0.3 % (0.0-2.0); EOSINOPHILS # 0.5 10^3/ul (0.0-0.5); EOSINOPHILS % 3.1 % (0.0-7.0); HEMATOCRIT 31.5 % (37.0-47.0); HEMOGLOBIN 10.7 g/dl (12.0-16.0); LYMPHOCYTES # 2.5 10^3/ul (0.8-2.9); LYMPHOCYTES % 16.2 % (15.0-51.0); MEAN CORPUSCULAR VOLUME 91.4 fl (82.0-101.0); MEAN PLATELET VOLUME 6.9 fl (7.4-10.4); MONOCYTES % 6.7 % (0.0-11.0); NEUTROPHIL # 11.2 10^3/ul (1.6-7.5); NEUTROPHILS % 73.7 % (39.0-77.0); PLATELET COUNT 515 10^3/UL (140-440); RED BLOOD COUNT 3.45 10^6/ul (4.20-5.40); RED CELL DISTRIBUTION WIDTH 15.9 % (11.5-14.5); UNCORRECTED WBC 15.2 10^3/ul (4.8-10.8); WHITE BLOOD COUNT 15.2 10^3/ul (4.8-10.8)
[2016-05-26] MEDS: INSULIN ASPART [NOVOLOG] 3 ML PEN SC SCH ×3 (06:00→21:01)
[2016-05-26 06:06] LABS: POTASSIUM 4.2 mmol/L (3.5-5.1)
[2016-05-26 06:09] LABS: CALCIUM 7.8 mg/dl (8.4-10.2); CREATININE 2.02 mg/dl (0.44-1.00)
[2016-05-26] MEDS: metroNIDAZOLE 500 MG TAB GTB SCH ×3 (06:12→21:00)
[2016-05-26 06:22] LABS: CONDITION 1; LH ANALYZER COMMENTS 1; SUSPECT 1
[2016-05-26] MEDS: MULTIVITAMINS 5 ML CUP GTB SCH (09:29)
[2016-05-26] MEDS: CITRIC ACID/NA CITRATE 30 ML CUP PO SCH ×3 (09:29→20:58)
[2016-05-26] MEDS: FAMOTIDINE 20 MG TAB GTB SCH (09:29)
[2016-05-26] MEDS: ASPIRIN 81 MG TAB GTB SCH (09:29)
[2016-05-26] MEDS: LEVETIRACETAM (100 MG/ML) 5ML CUP GTB SCH ×2 (09:29→20:57)
[2016-05-26] MEDS: COLLAGENASE 30 GM TUBE TOP SCH (09:29)
[2016-05-26] MEDS: ASCORBIC ACID 500 MG TAB GTB SCH (09:29)
--- NOTE | 2016-05-26 11:40 | PN ---
Date/Time of Note Date/Time of Note DATE: 05/26/16 TIME: 11:36 Assessment/Plan VTE Prophylaxis VTE Prophylaxis Intervention: SCD's Lines/Catheters IV Catheter Type (from [facility]): Peripheral IV Urinary Cath still in place: Yes Reason Cath still needed: other (indicate) Assessment/Plan Chief Complaint/Hosp Course ASSESSMENT AND PLAN: 1. Sepsis, likely secondary to urinary tract infection versus sacral decubitus. The patient has been started on daptomycin and Colistimethate as per ID recommendations . Follow up infectious disease recommendations. 2. Ventilator-dependent respiratory failure, status post trach. Pulmonology has been consulted. 3. Acute renal insufficiency, improving status post IVF, likely secondary to sepsis versus dehydration. nephrology consulted. Continue IV fluids. 4. Diabetes mellitus. Continue sliding scale and Lantus. 5. History of cerebrovascular accident. No acute issues at this time. Patient is bed bound and a phasic 6. 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 7. Seizure disorder. 8. Chronic encephalopathy. 9. Urinary tract infection===> MDRO, urine culture KLEB PNEUMONIAE CARBAPENEMASE, follow up in infectious disease recommendations 10. Essential Hypertension, continue to monitor restart blood pressure medications cautiously 11. C. difficile toxin, repeat stool negative for C. difficile , follow-up ID recommendations to discontinue Flagyl 12. Hypokalemia, repleted 13. Hypernatremia, resolved 14. Unstageable sacral decubitus, possible osteomyelitis with a history of multiple debridements. We will continue monitor patient closely for recommendation management treatment as per clinical course Condition guarded Continue to monitor in telemetry floor Plan to discharge to [facility] facility when bed is available We will follow up with infectious disease physician regarding isolation status and discharge Problems: Subjective 24 Hr Interval Summary Free Text/Dictation No acute changes Patient tolerating PEG tube feeding Plan to meet up with patient's yesterday although unfortunately he could not make it Exam/Review of Systems Vital Signs Vitals Vital Signs Date Time Temp Pulse Resp B/P Pulse Ox O2 Delivery O2 Flow Rate FiO2 05/26/16 11:23 93 14 100 30 05/26/16 11:21 98.3 128/77 Intake and Output 05/25/16 05/25/16 05/26/16 15:00 23:00 07:00 Intake Total 480 ml 560 ml 420 ml Output Total 700 ml 600 ml Balance 480 ml -140 ml -180 ml Exam General: The patient is a phasic, on vent via trach, does not respond to any pain or verbal stimuli HEENT: Atraumatic, normocephalic. The pupils are equal Neck: Supple , trach in place Chest: Normal Lungs: Decreased breath sounds bilateral lower lung field, positive crackles Heart: Normal S1-S2, Regular rhythm and rate. Abdomen: Soft , nontender, nondistended , bowel sounds are present. PEG tube in place Extremities: Flaccid, + 2 edema no cyanosis Neurologic: No meaningful neurologic examination findings Skin: Stage IV sacral decubitus Results Result Diagram: 05/26/16 0530 05/26/16 0530 Results 24 hrs Laboratory Tests Test 05/25/16 14:03 05/25/16 21:07 05/26/16 05:30 05/26/16 06:11 Bedside Glucose 100 104 101 Anion Gap 14 Basophils # 0.0 Basophils % 0.3 Blood Morphology Comment Blood Urea Nitrogen 39 H Calcium Level 7.8 L Carbon Dioxide Level 23 Chloride Level 108 Creatinine 2.02 H Eosinophils # 0.5 Eosinophils % 3.1 Glucose Level 77 Hematocrit 31.5 #L Hemoglobin 10.7 #L Lymphocytes # 2.5 Lymphocytes % 16.2 Mean Corpuscular Hemoglobin 31.0 Mean Corpuscular Hemoglobin Concent 34.0 Mean Corpuscular Volume 91.4 Mean Platelet Volume 6.9 L Monocytes # 1.0 H Monocytes % 6.7 Neutrophils # 11.2 H Neutrophils % 73.7 Nucleated Red Blood Cells # 0.0 Nucleated Red Blood Cells % 0.0 Platelet Count 515 #H Potassium Level 4.2 Red Blood Count 3.45 #L Red Cell Distribution Width 15.9 H Sodium Level 141 White Blood Count 15.2 H Medications Medications Current Medications Morphine Sulfate (morphine) 2 mg Q4H PRN IV SEVERE PAIN LEVEL 7-10 Last administered on 05/07/16at 18:26; Admin Dose 2 MG; Start 05/04/16 at 07:30 Docusate Sodium (Colace) 100 mg Q12H PRN PO CONSTIPATION; Start 05/04/16 at 07 :30 Lorazepam (Ativan) 0.5 mg Q6H PRN IV ANXIETY Last administered on 05/06/16at 23 :58; Admin Dose 0.5 MG; Start 05/04/16 at 07:30 Hydralazine HCl (Apresoline) 10 mg Q6H PRN IV ELEVATED BLOOD PRESSURE; Start 05/04/16 at 07:30 Nitroglycerin (Nitroglycerin (Sl Tab) 0.4 Mg) 1 tab Q5M PRN SL ANGINA; Start 05/04/16 at 07:30 Acetaminophen (Tylenol Supp) 650 mg Q4 PRN [place] PAIN OR TEMP ABOVE 38C; Start at 07:30 Atorvastatin Calcium (Lipitor) 20 mg QHS GTB Last administered on 05/25/16 21: 08; Admin Dose 20 MG; Start 05/04/16 at 21:00 Bisacodyl (Dulcolax Supp) 10 mg Q24H PRN [place] CONSTIPATION; Start 05/04/16 at 07 :30 Levetiracetam (Keppra Liquid) 1,000 mg Q12 GTB Last administered on 05/26/16 09 :29; Admin Dose 1,000 MG; Start 05/04/16 at 09:00 Multivitamins (Thera-Plus) 5 ml DAILY GTB Last administered on 05/26/16 09:29; Admin Dose 5 ML; Start 05/04/16 at 09:00 Miscellaneous Information 1 ea NOTE XX ; Start 05/04/16 at 09:00 Glucose (Glutose) 15 gm Q15M PRN PO DECREASED GLUCOSE; Start 05/04/16 at 09:00 Glucose (Glutose) 22.5 gm Q15M PRN PO DECREASED GLUCOSE; Start 05/04/16 at 09: 00 Dextrose (D50w Syringe) 25 ml Q15M PRN IV DECREASED GLUCOSE; Start 05/04/16 at 09:00 Dextrose (D50w Syringe) 50 ml Q15M PRN IV DECREASED GLUCOSE; Start 05/04/16 at 09:00 Glucagon (Glucagen) 1 mg Q15M PRN IM DECREASED GLUCOSE; Start 05/04/16 at 09: 00 Glucose (Glutose) 15 gm Q15M PRN BUCCAL DECREASED GLUCOSE; Start 05/04/16 at 09:00 Acetaminophen (Tylenol Liquid) 650 mg Q6H PRN GTB PAIN LEVEL 1-3 OR FEVER Last administered on 05/20/16at 05:00; Admin Dose 650 MG; Start 05/04/16 at 18:30 Metronidazole (Flagyl) 500 mg Q8 GTB Last administered on 05/26/16 06:12; Admin Dose 500 MG; Start 05/05/16 at 14:00 Collagenase (Santyl) APPLY TO NECROTIC TISSUE DAILY TOP Last administered on 09:29; Admin Dose 1 APPLIC; Start 05/06/16 at 16:30 Collagenase (Santyl) APPLY TO NECROTIC AREA PRN PRN TOP SOILING Last administered on 05/21/16at 22:04; Admin Dose 3 APPLIC; Start 05/06/16 at 16:00 Aspirin (Aspirin) 81 mg DAILY GTB Last administered on 05/26/16 09:29; Admin Dose 81 MG; Start 05/10/16 at 09:00 Ascorbic Acid (Vitamin C) 500 mg DAILY GTB Last administered on 05/26/16 09:29 ; Admin Dose 500 MG; Start 05/10/16 at 11:00 Famotidine (Pepcid) 20 mg DAILY GTB Last administered on 05/26/16 09:29; Admin Dose 20 MG; Start 05/10/16 at 11:00 Acetaminophen/ Hydrocodone Bitart ([place] (5/325)) 1 tab Q6H PRN GTB MODERATE PAIN LEVEL 4-6; Start 05/10/16 at 13:30 Metoclopramide HCl (Reglan Liq) 10 mg Q6 GTB Last administered on 05/26/16 06: 12; Admin Dose 10 MG; Start 05/10/16 at 18:00 Hydralazine HCl (Apresoline) 25 mg Q8H GTB Last administered on 05/25/16 12:21 ; Admin Dose 25 MG; Start 05/14/16 at 20:00 Insulin Glargine (Lantus) 14 unit QPM SC Last administered on 05/25/16 21:26; Admin Dose 14 UNIT; Start 05/14/16 at 21:00 Citric Acid/ Sodium Citrate (Bicitra) 30 ml TID PO Last administered on 09:29; Admin Dose 30 ML; Start 05/15/16 at 21:00 Insulin Aspart NOVOLOG *MODERATE* ALGORITHM Q8 SC ; Start 05/20/16 at 14:00 Daptomycin 540 mg/ Sodium Chloride 100 ml @ 200 mls/hr Q24H IVPB Last administered on 05/25/16 13:55; Admin Dose 200 MLS/HR; Start 05/21/16 at 14:30 Sodium Chloride 1,000 ml @ 60 mls/hr [id number] IV Last administered on 05/25/16 21:09; Admin Dose 60 MLS/HR; Start 05/24/16 at 14:30 Colistimethate Sodium/Sodium Chloride (Coly-Mycin/NS) 100 ml @ 50 mls/hr Q24H IVPB Last administered on 05/25/16 11:32; Admin Dose 50 MLS/HR; Start 05/25/16 at 11:00 AMY HANKINS MD May 26, 2016 11:40
--- NOTE | 2016-05-26 12:23 | PN ---
DATE: 05/26/2016 SUBJECTIVE: No events. The patient is lying comfortably in bed. She is nonverbal, noncommunicativ e. No fevers. WBC today 15.2, platelets 515, no shift, no bands. BUN 39, creatinine 2.02. ANTIMICROBIALS: Patient is on daptomycin, colistin and Flagyl. INDWELLINGS: Trach, PEG, Reynolds. PHYSICAL EXAMINATION: GENERAL: Chronically ill-appearing, middle-aged woman who is lying comfortably in bed. HEENT: Head atraumatic, normocephalic. Sclerae anicteric. Buccal mucosa dry. NECK: Supple. Tracheostomy present. CHEST: Rise symmetrical. Breath sounds diminished to bases. HEART: S1, S2. ABDOMEN: Soft, bowel tones present. EXTREMITIES: No cyanosis. ASSESSMENT: 1. Systemic inflammatory response syndrome with persistent leukocytosis. 2. Acute renal failure, likely secondary to antibiotics. 3. Multidrug resistant urinary tract infection. 4. Clostridium difficile colitis. 5. Unstageable sacral decubitus, possible osteomyelitis. 6. Chronic respiratory failure. 7. Seizure disorder. 8. History of methicillin-resistant Staphylococcus aureus infected ventriculoperitoneal shunt, stat us post changed. PLAN: The patient remains clinically unchanged with persistent leukocytosis and worsening renal fun ction. We are going to discontinue colistin. Continue her on daptomycin and oral Flagyl. Continue local wound care. Consider surgical evaluation for wound debridement. The patient is DNR status. Dictated By: [employer] PERSON for PAT ALMONTE/RAMIRO Conf#: [id number] DID#: [id number]
[2016-05-26] MEDS: SOD CHLORIDE 0.45% 1,000 ML IV SCH (14:21)
[2016-05-26] MEDS: DAPTOMYCIN 540 MG in SOD CHLORIDE 0.9% 100 ML IVPB SCH (14:52)
--- NOTE | 2016-05-26 16:10 | CONS ---
Date/Time of Note Date/Time of Note DATE: 05/26/16 TIME: 16:09 Consult Date/Type/Reason Admit Date/Time May 04, 2016 at 05:51 Type of Consultation: pulmonary Ordering Provider: AMY HANKINS MD Subjective Patient stable no new events Objective Vital Signs Date Time Temp Pulse Resp B/P Pulse Ox O2 Delivery O2 Flow Rate FiO2 05/26/16 15:13 98.3 97 20 119/77 100 05/26/16 15:10 30 Intake and Output 05/25/16 05/25/16 05/26/16 15:00 23:00 07:00 Intake Total 480 ml 560 ml 420 ml Output Total 700 ml 600 ml Balance 480 ml -140 ml -180 ml Results/Medications Result Diagram: 05/26/16 0530 05/26/16 0530 Results 24 hrs Laboratory Tests Test 05/25/16 21:07 05/26/16 05:30 05/26/16 06:11 05/26/16 14:27 Bedside Glucose 104 101 113 Anion Gap 14 Basophils # 0.0 Basophils % 0.3 Blood Morphology Comment Blood Urea Nitrogen 39 H Calcium Level 7.8 L Carbon Dioxide Level 23 Chloride Level 108 Creatinine 2.02 H Eosinophils # 0.5 Eosinophils % 3.1 Glucose Level 77 Hematocrit 31.5 #L Hemoglobin 10.7 #L Lymphocytes # 2.5 Lymphocytes % 16.2 Mean Corpuscular Hemoglobin 31.0 Mean Corpuscular Hemoglobin Concent 34.0 Mean Corpuscular Volume 91.4 Mean Platelet Volume 6.9 L Monocytes # 1.0 H Monocytes % 6.7 Neutrophils # 11.2 H Neutrophils % 73.7 Nucleated Red Blood Cells # 0.0 Nucleated Red Blood Cells % 0.0 Platelet Count 515 #H Potassium Level 4.2 Red Blood Count 3.45 #L Red Cell Distribution Width 15.9 H Sodium Level 141 White Blood Count 15.2 H Medications Current Medications Morphine Sulfate (morphine) 2 mg Q4H PRN IV SEVERE PAIN LEVEL 7-10 Last administered on 05/07/16at 18:26; Admin Dose 2 MG; Start 05/04/16 at 07:30 Docusate Sodium (Colace) 100 mg Q12H PRN PO CONSTIPATION; Start 05/04/16 at 07 :30 Lorazepam (Ativan) 0.5 mg Q6H PRN IV ANXIETY Last administered on 05/06/16at 23 :58; Admin Dose 0.5 MG; Start 05/04/16 at 07:30 Hydralazine HCl (Apresoline) 10 mg Q6H PRN IV ELEVATED BLOOD PRESSURE; Start 05/04/16 at 07:30 Nitroglycerin (Nitroglycerin (Sl Tab) 0.4 Mg) 1 tab Q5M PRN SL ANGINA; Start 05/04/16 at 07:30 Acetaminophen (Tylenol Supp) 650 mg Q4 PRN [place] PAIN OR TEMP ABOVE 38C; Start at 07:30 Atorvastatin Calcium (Lipitor) 20 mg QHS GTB Last administered on 05/25/16 21: 08; Admin Dose 20 MG; Start 05/04/16 at 21:00 Bisacodyl (Dulcolax Supp) 10 mg Q24H PRN [place] CONSTIPATION; Start 05/04/16 at 07 :30 Levetiracetam (Keppra Liquid) 1,000 mg Q12 GTB Last administered on 05/26/16 09 :29; Admin Dose 1,000 MG; Start 05/04/16 at 09:00 Multivitamins (Thera-Plus) 5 ml DAILY GTB Last administered on 05/26/16 09:29; Admin Dose 5 ML; Start 05/04/16 at 09:00 Miscellaneous Information 1 ea NOTE XX ; Start 05/04/16 at 09:00 Glucose (Glutose) 15 gm Q15M PRN PO DECREASED GLUCOSE; Start 05/04/16 at 09:00 Glucose (Glutose) 22.5 gm Q15M PRN PO DECREASED GLUCOSE; Start 05/04/16 at 09: 00 Dextrose (D50w Syringe) 25 ml Q15M PRN IV DECREASED GLUCOSE; Start 05/04/16 at 09:00 Dextrose (D50w Syringe) 50 ml Q15M PRN IV DECREASED GLUCOSE; Start 05/04/16 at 09:00 Glucagon (Glucagen) 1 mg Q15M PRN IM DECREASED GLUCOSE; Start 05/04/16 at 09: 00 Glucose (Glutose) 15 gm Q15M PRN BUCCAL DECREASED GLUCOSE; Start 05/04/16 at 09:00 Acetaminophen (Tylenol Liquid) 650 mg Q6H PRN GTB PAIN LEVEL 1-3 OR FEVER Last administered on 05/20/16at 05:00; Admin Dose 650 MG; Start 05/04/16 at 18:30 Metronidazole (Flagyl) 500 mg Q8 GTB Last administered on 05/26/16 14:21; Admin Dose 500 MG; Start 05/05/16 at 14:00 Collagenase (Santyl) APPLY TO NECROTIC TISSUE DAILY TOP Last administered on 09:29; Admin Dose 1 APPLIC; Start 05/06/16 at 16:30 Collagenase (Santyl) APPLY TO NECROTIC AREA PRN PRN TOP SOILING Last administered on 05/21/16at 22:04; Admin Dose 3 APPLIC; Start 05/06/16 at 16:00 Aspirin (Aspirin) 81 mg DAILY GTB Last administered on 05/26/16 09:29; Admin Dose 81 MG; Start 05/10/16 at 09:00 Ascorbic Acid (Vitamin C) 500 mg DAILY GTB Last administered on 05/26/16 09:29 ; Admin Dose 500 MG; Start 05/10/16 at 11:00 Famotidine (Pepcid) 20 mg DAILY GTB Last administered on 05/26/16 09:29; Admin Dose 20 MG; Start 05/10/16 at 11:00 Acetaminophen/ Hydrocodone Bitart ([place] (5/325)) 1 tab Q6H PRN GTB MODERATE PAIN LEVEL 4-6; Start 05/10/16 at 13:30 Metoclopramide HCl (Reglan Liq) 10 mg Q6 GTB Last administered on 05/26/16 12: 54; Admin Dose 10 MG; Start 05/10/16 at 18:00 Hydralazine HCl (Apresoline) 25 mg Q8H GTB Last administered on 05/26/16 12:53 ; Admin Dose 25 MG; Start 05/14/16 at 20:00 Insulin Glargine (Lantus) 14 unit QPM SC Last administered on 05/25/16 21:26; Admin Dose 14 UNIT; Start 05/14/16 at 21:00 Citric Acid/ Sodium Citrate (Bicitra) 30 ml TID PO Last administered on 12:53; Admin Dose 30 ML; Start 05/15/16 at 21:00 Insulin Aspart NOVOLOG *MODERATE* ALGORITHM Q8 SC ; Start 05/20/16 at 14:00 Daptomycin 540 mg/ Sodium Chloride 100 ml @ 200 mls/hr Q24H IVPB Last administered on 05/26/16 14:52; Admin Dose 200 MLS/HR; Start 05/21/16 at 14:30 Sodium Chloride (1/2 NS) 1,000 ml @ 60 mls/hr [id number] IV Last administered on 05/26/16 14:21; Admin Dose 60 MLS/HR; Start 05/24/16 at 14:30 Assessment/Plan Chief Complaint/Hosp Course IMPRESSION AND PLAN 1. Chronic vent dependent respiratory failure. 2. Chronic encephalopathy. 3. Anemia of chronic disease. 4. Resolving sepsis. 5. Dysphagia with G-tube. The patient will require 1. Continued antibiotics per ID. 2. Vent support. 3. Wound care. 4. DVT and GI prophylaxis. 5. Monitor Hb. Problems: JIMMY GONSALEZ MD, [facility] May 26, 2016 16:10
--- NOTE | 2016-05-26 18:43 | CONS ---
Date/Time of Note Date/Time of Note DATE: 05/26/16 TIME: 18:41 Assessment/Plan Assessment/Plan Chief Complaint/Hosp Course IMPRESSION: 1. Patient has [id number] kidney disease. 2. Acute renal failure due to dehydration.BETTER 3. Underlying acute tubular necrosis due to sepsis/meds. 4. Severe sepsis.c diff 5. hypernatremia.better 6. Free water deficit.BETTER 7. RES FAILURE 8. Lactic acidosis.BETTER 9. vdrf. 10. Anemia. 11. History of tracheostomy. 12 METABOLIC ACIDOSIS better PLAN [facility] avoid nephrotoxic drugs iv fluid Problems: Consultation Date/Type/Reason Admit Date/Time May 04, 2016 at 05:51 Type of Consultation: renal Referring Provider: AMY HANKINS MD Exam/Review of Systems Vital Signs Vitals Vital Signs Date Time Temp Pulse Resp B/P Pulse Ox O2 Delivery O2 Flow Rate FiO2 05/26/16 17:28 92 14 100 30 05/26/16 15:13 98.3 119/77 Intake and Output 05/25/16 05/25/16 05/26/16 14:59 22:59 06:59 Intake Total 480 ml 560 ml 420 ml Output Total 700 ml 600 ml Balance 480 ml -140 ml -180 ml Exam Respiratory: clear to auscultation Cardiovascular: regular rate and rhythm Gastrointestinal: soft Musculoskeletal: nl extremities to inspection Results Result Diagram: 05/26/16 0530 05/26/16 0530 Results 24 hrs Laboratory Tests Test 05/25/16 21:07 05/26/16 05:30 05/26/16 06:11 05/26/16 14:27 Bedside Glucose 104 101 113 Anion Gap 14 Basophils # 0.0 Basophils % 0.3 Blood Morphology Comment Blood Urea Nitrogen 39 H Calcium Level 7.8 L Carbon Dioxide Level 23 Chloride Level 108 Creatinine 2.02 H Eosinophils # 0.5 Eosinophils % 3.1 Glucose Level 77 Hematocrit 31.5 #L Hemoglobin 10.7 #L Lymphocytes # 2.5 Lymphocytes % 16.2 Mean Corpuscular Hemoglobin 31.0 Mean Corpuscular Hemoglobin Concent 34.0 Mean Corpuscular Volume 91.4 Mean Platelet Volume 6.9 L Monocytes # 1.0 H Monocytes % 6.7 Neutrophils # 11.2 H Neutrophils % 73.7 Nucleated Red Blood Cells # 0.0 Nucleated Red Blood Cells % 0.0 Platelet Count 515 #H Potassium Level 4.2 Red Blood Count 3.45 #L Red Cell Distribution Width 15.9 H Sodium Level 141 White Blood Count 15.2 H Medications Medications Current Medications Morphine Sulfate (morphine) 2 mg Q4H PRN IV SEVERE PAIN LEVEL 7-10 Last administered on 05/07/16at 18:26; Admin Dose 2 MG; Start 05/04/16 at 07:30 Docusate Sodium (Colace) 100 mg Q12H PRN PO CONSTIPATION; Start 05/04/16 at 07 :30 Lorazepam (Ativan) 0.5 mg Q6H PRN IV ANXIETY Last administered on 05/06/16at 23 :58; Admin Dose 0.5 MG; Start 05/04/16 at 07:30 Hydralazine HCl (Apresoline) 10 mg Q6H PRN IV ELEVATED BLOOD PRESSURE; Start 05/04/16 at 07:30 Nitroglycerin (Nitroglycerin (Sl Tab) 0.4 Mg) 1 tab Q5M PRN SL ANGINA; Start 05/04/16 at 07:30 Acetaminophen (Tylenol Supp) 650 mg Q4 PRN [place] PAIN OR TEMP ABOVE 38C; Start at 07:30 Atorvastatin Calcium (Lipitor) 20 mg QHS GTB Last administered on 05/25/16 21: 08; Admin Dose 20 MG; Start 05/04/16 at 21:00 Bisacodyl (Dulcolax Supp) 10 mg Q24H PRN [place] CONSTIPATION; Start 05/04/16 at 07 :30 Levetiracetam (Keppra Liquid) 1,000 mg Q12 GTB Last administered on 05/26/16 09 :29; Admin Dose 1,000 MG; Start 05/04/16 at 09:00 Multivitamins (Thera-Plus) 5 ml DAILY GTB Last administered on 05/26/16 09:29; Admin Dose 5 ML; Start 05/04/16 at 09:00 Miscellaneous Information 1 ea NOTE XX ; Start 05/04/16 at 09:00 Glucose (Glutose) 15 gm Q15M PRN PO DECREASED GLUCOSE; Start 05/04/16 at 09:00 Glucose (Glutose) 22.5 gm Q15M PRN PO DECREASED GLUCOSE; Start 05/04/16 at 09: 00 Dextrose (D50w Syringe) 25 ml Q15M PRN IV DECREASED GLUCOSE; Start 05/04/16 at 09:00 Dextrose (D50w Syringe) 50 ml Q15M PRN IV DECREASED GLUCOSE; Start 05/04/16 at 09:00 Glucagon (Glucagen) 1 mg Q15M PRN IM DECREASED GLUCOSE; Start 05/04/16 at 09: 00 Glucose (Glutose) 15 gm Q15M PRN BUCCAL DECREASED GLUCOSE; Start 05/04/16 at 09:00 Acetaminophen (Tylenol Liquid) 650 mg Q6H PRN GTB PAIN LEVEL 1-3 OR FEVER Last administered on 05/20/16at 05:00; Admin Dose 650 MG; Start 05/04/16 at 18:30 Metronidazole (Flagyl) 500 mg Q8 GTB Last administered on 05/26/16 14:21; Admin Dose 500 MG; Start 05/05/16 at 14:00 Collagenase (Santyl) APPLY TO NECROTIC TISSUE DAILY TOP Last administered on 09:29; Admin Dose 1 APPLIC; Start 05/06/16 at 16:30 Collagenase (Santyl) APPLY TO NECROTIC AREA PRN PRN TOP SOILING Last administered on 05/21/16at 22:04; Admin Dose 3 APPLIC; Start 05/06/16 at 16:00 Aspirin (Aspirin) 81 mg DAILY GTB Last administered on 05/26/16 09:29; Admin Dose 81 MG; Start 05/10/16 at 09:00 Ascorbic Acid (Vitamin C) 500 mg DAILY GTB Last administered on 05/26/16 09:29 ; Admin Dose 500 MG; Start 05/10/16 at 11:00 Famotidine (Pepcid) 20 mg DAILY GTB Last administered on 05/26/16 09:29; Admin Dose 20 MG; Start 05/10/16 at 11:00 Acetaminophen/ Hydrocodone Bitart ([place] (5/325)) 1 tab Q6H PRN GTB MODERATE PAIN LEVEL 4-6; Start 05/10/16 at 13:30 Metoclopramide HCl (Reglan Liq) 10 mg Q6 GTB Last administered on 05/26/16 12: 54; Admin Dose 10 MG; Start 05/10/16 at 18:00 Hydralazine HCl (Apresoline) 25 mg Q8H GTB Last administered on 05/26/16 12:53 ; Admin Dose 25 MG; Start 05/14/16 at 20:00 Insulin Glargine (Lantus) 14 unit QPM SC Last administered on 05/25/16 21:26; Admin Dose 14 UNIT; Start 05/14/16 at 21:00 Citric Acid/ Sodium Citrate (Bicitra) 30 ml TID PO Last administered on 12:53; Admin Dose 30 ML; Start 05/15/16 at 21:00 Insulin Aspart NOVOLOG *MODERATE* ALGORITHM Q8 SC ; Start 05/20/16 at 14:00 Daptomycin 540 mg/ Sodium Chloride 100 ml @ 200 mls/hr Q24H IVPB Last administered on 05/26/16 14:52; Admin Dose 200 MLS/HR; Start 05/21/16 at 14:30 Sodium Chloride (1/2 NS) 1,000 ml @ 60 mls/hr [id number] Last administered on 05/26/16 14:21; Admin Dose 60 MLS/HR; Start 05/24/16 at 14:30 AMBER LIEBERMAN MD May 26, 2016 18:42
[2016-05-26] MEDS: ATORVASTATIN 20 MG TAB GTB SCH (20:57)
[2016-05-26] MEDS: INSULIN GLARGINE [LANtus] 3 ML PEN SC SCH (21:13)
[2016-05-27] VITALS (24 sets, daily range): BP systolic 117–130; BP diastolic 65–80; PULSE 103–114; RESP 14–19
[2016-05-27] MEDS: METOCLOPRAMIDE (1 MG/ML) 10 ML CUP GTB SCH ×5 (00:30→23:44)
[2016-05-27] MEDS: SOD CHLORIDE 0.45% 1,000 ML IV SCH ×3 (05:02→23:44)
[2016-05-27] MEDS: metroNIDAZOLE 500 MG TAB GTB SCH ×3 (05:07→21:22)
[2016-05-27] MEDS: INSULIN ASPART [NOVOLOG] 3 ML PEN SC SCH ×3 (05:12→21:22)
[2016-05-27] MEDS: MULTIVITAMINS 5 ML CUP GTB SCH (08:35)
[2016-05-27] MEDS: ASCORBIC ACID 500 MG TAB GTB SCH (08:35)
[2016-05-27] MEDS: FAMOTIDINE 20 MG TAB GTB SCH (08:35)
[2016-05-27] MEDS: ASPIRIN 81 MG TAB GTB SCH (08:35)
[2016-05-27] MEDS: CITRIC ACID/NA CITRATE 30 ML CUP PO SCH ×3 (08:35→20:43)
[2016-05-27] MEDS: LEVETIRACETAM (100 MG/ML) 5ML CUP GTB SCH ×2 (08:35→20:45)
[2016-05-27] MEDS: COLLAGENASE 30 GM TUBE TOP SCH (08:36)
--- NOTE | 2016-05-27 12:34 | CONS ---
Date/Time of Note Date/Time of Note DATE: 05/27/16 TIME: 12:32 Consult Date/Type/Reason Admit Date/Time May 04, 2016 at 05:51 Type of Consultation: ID Ordering Provider: AMY HANKINS MD Subjective no changes, afebrile, noncommunicative, nad Objective Vital Signs Date Time Temp Pulse Resp B/P Pulse Ox O2 Delivery O2 Flow Rate FiO2 05/27/16 12:30 103 05/27/16 11:10 17 99 30 05/27/16 07:35 99.1 127/80 Intake and Output 05/26/16 05/26/16 05/27/16 15:00 23:00 07:00 Intake Total 1440 ml 1340 ml Output Total 1150 ml 1100 ml Balance 290 ml 240 ml Results/Medications Result Diagram: 05/26/16 0530 05/26/16 0530 Results 24 hrs Laboratory Tests Test 05/26/16 14:27 05/26/16 21:01 05/27/16 05:11 Bedside Glucose 113 123 100 Medications Current Medications Morphine Sulfate (morphine) 2 mg Q4H PRN IV SEVERE PAIN LEVEL 7-10 Last administered on 05/07/16at 18:26; Admin Dose 2 MG; Start 05/04/16 at 07:30 Docusate Sodium (Colace) 100 mg Q12H PRN PO CONSTIPATION; Start 05/04/16 at 07 :30 Lorazepam (Ativan) 0.5 mg Q6H PRN IV ANXIETY Last administered on 05/06/16at 23 :58; Admin Dose 0.5 MG; Start 05/04/16 at 07:30 Hydralazine HCl (Apresoline) 10 mg Q6H PRN IV ELEVATED BLOOD PRESSURE; Start 05/04/16 at 07:30 Nitroglycerin (Nitroglycerin (Sl Tab) 0.4 Mg) 1 tab Q5M PRN SL ANGINA; Start 05/04/16 at 07:30 Acetaminophen (Tylenol Supp) 650 mg Q4 PRN [place] PAIN OR TEMP ABOVE 38C; Start at 07:30 Atorvastatin Calcium (Lipitor) 20 mg QHS GTB Last administered on 05/26/16t 20: 57; Admin Dose 20 MG; Start 05/04/16 at 21:00 Bisacodyl (Dulcolax Supp) 10 mg Q24H PRN OR CONSTIPATION; Start 05/04/16 at 07 :30 Levetiracetam (Keppra Liquid) 1,000 mg Q12 GTB Last administered on 05/27/16 08 :35; Admin Dose 1,000 MG; Start 05/04/16 at 09:00 Multivitamins (Thera-Plus) 5 ml DAILY GTB Last administered on 05/27/16 08:35; Admin Dose 5 ML; Start 05/04/16 at 09:00 Miscellaneous Information 1 ea NOTE XX ; Start 05/04/16 at 09:00 Glucose (Glutose) 15 gm Q15M PRN PO DECREASED GLUCOSE; Start 05/04/16 at 09:00 Glucose (Glutose) 22.5 gm Q15M PRN PO DECREASED GLUCOSE; Start 05/04/16 at 09: 00 Dextrose (D50w Syringe) 25 ml Q15M PRN IV DECREASED GLUCOSE; Start 05/04/16 at 09:00 Dextrose (D50w Syringe) 50 ml Q15M PRN IV DECREASED GLUCOSE; Start 05/04/16 at 09:00 Glucagon (Glucagen) 1 mg Q15M PRN IM DECREASED GLUCOSE; Start 05/04/16 at 09: 00 Glucose (Glutose) 15 gm Q15M PRN BUCCAL DECREASED GLUCOSE; Start 05/04/16 at 09:00 Acetaminophen (Tylenol Liquid) 650 mg Q6H PRN GTB PAIN LEVEL 1-3 OR FEVER Last administered on 05/20/16at 05:00; Admin Dose 650 MG; Start 05/04/16 at 18:30 Metronidazole (Flagyl) 500 mg Q8 GTB Last administered on 05/27/16 05:07; Admin Dose 500 MG; Start 05/05/16 at 14:00 Collagenase (Santyl) APPLY TO NECROTIC TISSUE DAILY TOP Last administered on 08:36; Admin Dose 1 APPLIC; Start 05/06/16 at 16:30 Collagenase (Santyl) APPLY TO NECROTIC AREA PRN PRN TOP SOILING Last administered on 05/21/16at 22:04; Admin Dose 3 APPLIC; Start 05/06/16 at 16:00 Aspirin (Aspirin) 81 mg DAILY GTB Last administered on 05/27/16 08:35; Admin Dose 81 MG; Start 12/19/16 at 09:00 Ascorbic Acid (Vitamin C) 500 mg DAILY GTB Last administered on 05/27/16 08:35 ; Admin Dose 500 MG; Start 05/10/16 at 11:00 Famotidine (Pepcid) 20 mg DAILY GTB Last administered on 05/27/16 08:35; Admin Dose 20 MG; Start 05/10/16 at 11:00 Acetaminophen/ Hydrocodone Bitart ([place] (5/325)) 1 tab Q6H PRN GTB MODERATE PAIN LEVEL 4-6; Start 05/10/16 at 13:30 Metoclopramide HCl (Reglan Liq) 10 mg Q6 GTB Last administered on 05/27/16 05: 05; Admin Dose 10 MG; Start 05/10/16 at 18:00 Hydralazine HCl (Apresoline) 25 mg Q8H GTB Last administered on 05/27/16 04:40 ; Admin Dose 25 MG; Start 05/14/16 at 20:00 Insulin Glargine (Lantus) 14 unit QPM SC Last administered on 05/26/16 21:13; Admin Dose 14 UNIT; Start 05/14/16 at 21:00 Citric Acid/ Sodium Citrate (Bicitra) 30 ml TID PO Last administered on 08:35; Admin Dose 30 ML; Start 05/15/16 at 21:00 Insulin Aspart NOVOLOG *MODERATE* ALGORITHM Q8 SC ; Start 05/20/16 at 14:00 Daptomycin 540 mg/ Sodium Chloride 100 ml @ 200 mls/hr Q24H IVPB Last administered on 05/26/16 14:52; Admin Dose 200 MLS/HR; Start 05/21/16 at 14:30 Sodium Chloride (1/2 NS) 1,000 ml @ 60 mls/hr [id number] IV Last administered on 05/27/16 05:02; Admin Dose 60 MLS/HR; Start 05/24/16 at 14:30 Assessment/Plan Chief Complaint/Hosp Course INDWELLINGS: Trach, PEG, Reynolds, DREDGE PIPEMAN shunt. ANTIMICROBIALS: Daptomycin Flagyl PHYSICAL EXAMINATION: GENERAL: This is a chronically ill-appearing, middle-aged woman who is obtunded in no distress. HEENT: Head atraumatic, normocephalic. Sclerae anicteric. Buccal mucosa dry. NECK: Supple. Tracheostomy present. CHEST: Rise symmetrical. Breath sounds diminished at the bases. HEART: S1, S2. ABDOMEN: Soft, bowel tones present. EXTREMITIES: Without cyanosis. ASSESSMENT: 1. S/p sepsis with shock. 2. Clostridium difficile colitis. 3. Unstageable sacral decubitus, possible osteomyelitis with a history of multiple debridements. 4. 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 5. Seizure disorder. 6. Chronic encephalopathy. 7. Urinary tract infection===> MDRO. 8. A/CKD PLAN: Clinically unchanged, Col[place] was dc's 2 to worsening renal f-n, continue abx, consider surgical eval for poss wound debridement. ?palliative care eval staff Problems: DUTCH STEELE NP May 27, 2016 12:34
--- NOTE | 2016-05-27 12:38 | PN ---
Date/Time of Note Date/Time of Note DATE: 05/27/16 TIME: 12:29 Assessment/Plan VTE Prophylaxis VTE Prophylaxis Intervention: SCD's Lines/Catheters [facility] Peripheral IV Urinary Cath still in place: Yes Reason Cath still needed: other (indicate) Assessment/Plan Chief Complaint/Hosp Course ASSESSMENT AND PLAN: 1. Sepsis, likely secondary to urinary tract infection versus sacral decubitus. The patient has been started on daptomycin and Colistimethate as per ID recommendations . Follow up infectious disease recommendations. 2. Ventilator-dependent respiratory failure, status post trach. Pulmonology has been consulted. 3. Acute renal insufficiency, improving status post IVF, likely secondary to sepsis versus dehydration. nephrology consulted. Continue IV fluids. 4. Diabetes mellitus. Continue sliding scale and Lantus. 5. History of cerebrovascular accident. No acute issues at this time. Patient is bed bound and a phasic 6. 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 7. Seizure disorder. 8. Chronic encephalopathy. 9. Urinary tract infection===> MDRO, urine culture KLEB PNEUMONIAE CARBAPENEMASE, follow up in infectious disease recommendations 10. Essential Hypertension, continue to monitor restart blood pressure medications cautiously 11. C. difficile toxin, repeat stool negative for C. difficile , follow-up ID recommendations to discontinue Flagyl 12. Hypokalemia, repleted 13. Hypernatremia, resolved 14. Unstageable sacral decubitus, possible osteomyelitis with a history of multiple debridements. We will continue monitor patient closely for recommendation management treatment as per clinical course Condition guarded Continue to monitor in telemetry floor Plan to discharge to [facility] facility when bed is available We will follow up with infectious disease physician regarding isolation status and discharge Problems: Subjective 24 Hr Interval Summary Free Text/Dictation No acute changes Patient tolerating PEG tube feeding Waiting for [place] respiratory evaluation after insurance change Exam/Review of Systems Vital Signs Vitals Vital Signs Date Time Temp Pulse Resp B/P Pulse Ox O2 Delivery O2 Flow Rate FiO2 05/27/16 11:10 103 17 99 30 05/27/16 07:35 99.1 127/80 Intake and Output 05/26/16 05/26/16 05/27/16 15:00 23:00 07:00 Intake Total 1440 ml 1340 ml Output Total 1150 ml 1100 ml Balance 290 ml 240 ml Exam General: The patient is a phasic, on vent via trach, does not respond to any pain or verbal stimuli HEENT: Atraumatic, normocephalic. The pupils are equal Neck: Supple , trach in place Chest: Normal Lungs: Decreased breath sounds bilateral lower lung field, positive crackles Heart: Normal S1-S2, Regular rhythm and rate. Abdomen: Soft , nontender, nondistended , bowel sounds are present. PEG tube in place Extremities: Flaccid, + 2 edema no cyanosis Neurologic: No meaningful neurologic examination findings Skin: Stage IV sacral decubitus Results Result Diagram: 05/26/16 0530 05/26/16 0530 Results 24 hrs Laboratory Tests Test 05/26/16 14:27 05/26/16 21:01 05/27/16 05:11 Bedside Glucose 113 123 100 Medications Medications Current Medications Morphine Sulfate (morphine) 2 mg Q4H PRN IV SEVERE PAIN LEVEL 7-10 Last administered on 05/07/16at 18:26; Admin Dose 2 MG; Start 05/04/16 at 07:30 Docusate Sodium (Colace) 100 mg Q12H PRN PO CONSTIPATION; Start 05/04/16 at 07 :30 Lorazepam (Ativan) 0.5 mg Q6H PRN IV ANXIETY Last administered on 05/06/16at 23 :58; Admin Dose 0.5 MG; Start 05/04/16 at 07:30 Hydralazine HCl (Apresoline) 10 mg Q6H PRN IV ELEVATED BLOOD PRESSURE; Start 05/04/16 at 07:30 Nitroglycerin (Nitroglycerin (Sl Tab) 0.4 Mg) 1 tab Q5M PRN SL ANGINA; Start 05/04/16 at 07:30 Acetaminophen (Tylenol Supp) 650 mg Q4 PRN [place] PAIN OR TEMP ABOVE 38C; Start at 07:30 Atorvastatin Calcium (Lipitor) 20 mg QHS GTB Last administered on 05/26/16 20: 57; Admin Dose 20 MG; Start 05/04/16 at 21:00 Bisacodyl (Dulcolax Supp) 10 mg Q24H PRN [place] CONSTIPATION; Start 05/04/16 at 07 :30 Levetiracetam (Keppra Liquid) 1,000 mg Q12 GTB Last administered on 05/27/16 08 :35; Admin Dose 1,000 MG; Start 05/04/16 at 09:00 Multivitamins (Thera-Plus) 5 ml DAILY GTB Last administered on 05/27/16 08:35; Admin Dose 5 ML; Start 05/04/16 at 09:00 Miscellaneous Information 1 ea NOTE XX ; Start 05/04/16 at 09:00 Glucose (Glutose) 15 gm Q15M PRN PO DECREASED GLUCOSE; Start 05/04/16 at 09:00 Glucose (Glutose) 22.5 gm Q15M PRN PO DECREASED GLUCOSE; Start 05/04/16 at 09: 00 Dextrose (D50w Syringe) 25 ml Q15M PRN IV DECREASED GLUCOSE; Start 05/04/16 at 09:00 Dextrose (D50w Syringe) 50 ml Q15M PRN IV DECREASED GLUCOSE; Start 05/04/16 at 09:00 Glucagon (Glucagen) 1 mg Q15M PRN IM DECREASED GLUCOSE; Start 05/04/16 at 09: 00 Glucose (Glutose) 15 gm Q15M PRN BUCCAL DECREASED GLUCOSE; Start 05/04/16 at 09:00 Acetaminophen (Tylenol Liquid) 650 mg Q6H PRN GTB PAIN LEVEL 1-3 OR FEVER Last administered on 05/20/16at 05:00; Admin Dose 650 MG; Start 05/04/16 at 18:30 Metronidazole (Flagyl) 500 mg Q8 GTB Last administered on 05/27/16 05:07; Admin Dose 500 MG; Start 05/05/16 at 14:00 Collagenase (Santyl) APPLY TO NECROTIC TISSUE DAILY TOP Last administered on 08:36; Admin Dose 1 APPLIC; Start 05/06/16 at 16:30 Collagenase (Santyl) APPLY TO NECROTIC AREA PRN PRN TOP SOILING Last administered on 05/21/16at 22:04; Admin Dose 3 APPLIC; Start 05/06/16 at 16:00 Aspirin (Aspirin) 81 mg DAILY GTB Last administered on 05/27/16 08:35; Admin Dose 81 MG; Start 05/10/16 at 09:00 Ascorbic Acid (Vitamin C) 500 mg DAILY GTB Last administered on 05/27/16 08:35 ; Admin Dose 500 MG; Start 05/10/16 at 11:00 Famotidine (Pepcid) 20 mg DAILY GTB Last administered on 05/27/16 08:35; Admin Dose 20 MG; Start 05/10/16 at 11:00 Acetaminophen/ Hydrocodone Bitart ([employer] (5/325)) 1 tab Q6H PRN GTB MODERATE PAIN LEVEL 4-6; Start 05/10/16 at 13:30 Metoclopramide HCl (Reglan Liq) 10 mg Q6 GTB Last administered on 05/27/16 05: 05; Admin Dose 10 MG; Start 05/10/16 at 18:00 Hydralazine HCl (Apresoline) 25 mg Q8H GTB Last administered on 05/27/16 04:40 ; Admin Dose 25 MG; Start 05/14/16 at 20:00 Insulin Glargine (Lantus) 14 unit QPM SC Last administered on 05/26/16 21:13; Admin Dose 14 UNIT; Start 05/14/16 at 21:00 Citric Acid/ Sodium Citrate (Bicitra) 30 ml TID PO Last administered on 08:35; Admin Dose 30 ML; Start 05/15/16 at 21:00 Insulin Aspart NOVOLOG *MODERATE* ALGORITHM Q8 SC ; Start 05/20/16 at 14:00 Daptomycin 540 mg/ Sodium Chloride 100 ml @ 200 mls/hr Q24H IVPB Last administered on 05/26/16 14:52; Admin Dose 200 MLS/HR; Start 05/21/16 at 14:30 Sodium Chloride (1/2 NS) 1,000 ml @ 60 mls/hr [id number] IV Last administered on 05/27/16 05:02; Admin Dose 60 MLS/HR; Start 05/24/16 at 14:30 AMY HANKINS MD May 27, 2016 12:38
--- NOTE | 2016-05-27 13:59 | CONS ---
Date/Time of Note Date/Time of Note DATE: 05/27/16 TIME: 13:57 Assessment/Plan Assessment/Plan Chief Complaint/Hosp Course IMPRESSION: 1. Patient has ajanl-oi-wvoiuoi kidney disease. 2. Acute renal failure drug induced atn 3. Underlying acute tubular necrosis due to sepsis/meds. 4. Severe sepsis.c diff 5. hypernatremia.better 6. Free water deficit.BETTER 7. RES FAILURE 8. Lactic acidosis.BETTER 9. vdrf. 10. Anemia. 11. History of tracheostomy. 12 METABOLIC ACIDOSIS better PLAN [facility] avoid nephrotoxic drugs iv fluid Problems: Consultation Date/Type/Reason Admit Date/Time May 04, 2016 at 05:51 Type of Consultation: renal Referring Provider: AMY HANKINS MD 24 HR Interval Summary Subjective hx not possible: pt non-verbal Exam/Review of Systems Vital Signs Vitals Vital Signs Date Time Temp Pulse Resp B/P Pulse Ox O2 Delivery O2 Flow Rate FiO2 05/27/16 13:05 71 15 94 30 05/27/16 12:39 98.4 117/71 Intake and Output 05/26/16 05/26/16 05/27/16 15:00 23:00 07:00 Intake Total 1440 ml 1340 ml Output Total 1150 ml 1100 ml Balance 290 ml 240 ml Exam Neck: supple Respiratory: clear to auscultation Cardiovascular: regular rate and rhythm Gastrointestinal: soft Extremities: edema (++) Results Result Diagram: 05/26/16 0530 05/26/16 0530 Results 24 hrs Laboratory Tests Test 05/26/16 14:27 05/26/16 21:01 05/27/16 05:11 05/27/16 13:17 Bedside Glucose 113 123 100 96 Medications Medications Current Medications Morphine Sulfate (morphine) 2 mg Q4H PRN IV SEVERE PAIN LEVEL 7-10 Last administered on 05/07/16at 18:26; Admin Dose 2 MG; Start 05/04/16 at 07:30 Docusate Sodium (Colace) 100 mg Q12H PRN PO CONSTIPATION; Start 05/04/16 at 07 :30 Lorazepam (Ativan) 0.5 mg Q6H PRN IV ANXIETY Last administered on 05/06/16at 23 :58; Admin Dose 0.5 MG; Start 05/04/16 at 07:30 Hydralazine HCl (Apresoline) 10 mg Q6H PRN IV ELEVATED BLOOD PRESSURE; Start 05/04/16 at 07:30 Nitroglycerin (Nitroglycerin (Sl Tab) 0.4 Mg) 1 tab Q5M PRN SL ANGINA; Start 05/04/16 at 07:30 Acetaminophen (Tylenol Supp) 650 mg Q4 PRN [place] PAIN OR TEMP ABOVE 38C; Start at 07:30 Atorvastatin Calcium (Lipitor) 20 mg QHS GTB Last administered on 05/26/16 20: 57; Admin Dose 20 MG; Start 05/04/16 at 21:00 Bisacodyl (Dulcolax Supp) 10 mg Q24H PRN [place] CONSTIPATION; Start 05/04/16 at 07 :30 Levetiracetam (Keppra Liquid) 1,000 mg Q12 GTB Last administered on 05/27/16 08 :35; Admin Dose 1,000 MG; Start 05/04/16 at 09:00 Multivitamins (Thera-Plus) 5 ml DAILY GTB Last administered on 05/27/16 08:35; Admin Dose 5 ML; Start 05/04/16 at 09:00 Miscellaneous Information 1 ea NOTE XX ; Start 05/04/16 at 09:00 Glucose (Glutose) 15 gm Q15M PRN PO DECREASED GLUCOSE; Start 05/04/16 at 09:00 Glucose (Glutose) 22.5 gm Q15M PRN PO DECREASED GLUCOSE; Start 05/04/16 at 09: 00 Dextrose (D50w Syringe) 25 ml Q15M PRN IV DECREASED GLUCOSE; Start 05/04/16 at 09:00 Dextrose (D50w Syringe) 50 ml Q15M PRN IV DECREASED GLUCOSE; Start 05/04/16 at 09:00 Glucagon (Glucagen) 1 mg Q15M PRN IM DECREASED GLUCOSE; Start 05/04/16 at 09: 00 Glucose (Glutose) 15 gm Q15M PRN BUCCAL DECREASED GLUCOSE; Start 05/04/16 at 09:00 Acetaminophen (Tylenol Liquid) 650 mg Q6H PRN GTB PAIN LEVEL 1-3 OR FEVER Last administered on 05/20/16at 05:00; Admin Dose 650 MG; Start 05/04/16 at 18:30 Metronidazole (Flagyl) 500 mg Q8 GTB Last administered on 05/27/16 13:18; Admin Dose 500 MG; Start 05/05/16 at 14:00 Collagenase (Santyl) APPLY TO NECROTIC TISSUE DAILY TOP Last administered on 08:36; Admin Dose 1 APPLIC; Start 05/06/16 at 16:30 Collagenase (Santyl) APPLY TO NECROTIC AREA PRN PRN TOP SOILING Last administered on 05/21/16at 22:04; Admin Dose 3 APPLIC; Start 05/06/16 at 16:00 Aspirin (Aspirin) 81 mg DAILY GTB Last administered on 05/27/16 08:35; Admin Dose 81 MG; Start 05/10/16 at 09:00 Ascorbic Acid (Vitamin C) 500 mg DAILY GTB Last administered on 05/27/16 08:35 ; Admin Dose 500 MG; Start 05/10/16 at 11:00 Famotidine (Pepcid) 20 mg DAILY GTB Last administered on 05/27/16 08:35; Admin Dose 20 MG; Start 05/10/16 at 11:00 Acetaminophen/ Hydrocodone Bitart ([place] (5/325)) 1 tab Q6H PRN GTB MODERATE PAIN LEVEL 4-6; Start 05/10/16 at 13:30 Metoclopramide HCl (Reglan Liq) 10 mg Q6 GTB Last administered on 05/27/16 12: 51; Admin Dose 10 MG; Start 05/10/16 at 18:00 Hydralazine HCl (Apresoline) 25 mg Q8H GTB Last administered on 05/27/16 12:51 ; Admin Dose 25 MG; Start 05/14/16 at 20:00 Insulin Glargine (Lantus) 14 unit QPM SC Last administered on 05/26/16 21:13; Admin Dose 14 UNIT; Start 05/14/16 at 21:00 Citric Acid/ Sodium Citrate (Bicitra) 30 ml TID PO Last administered on 12:51; Admin Dose 30 ML; Start 05/15/16 at 21:00 Insulin Aspart NOVOLOG *MODERATE* ALGORITHM Q8 SC ; Start 05/20/16 at 14:00 Daptomycin 540 mg/ Sodium Chloride 100 ml @ 200 mls/hr Q24H IVPB Last administered on 05/26/16 14:52; Admin Dose 200 MLS/HR; Start 05/21/16 at 14:30 Sodium Chloride (1/2 NS) 1,000 ml @ 60 mls/hr [id number] IV Last administered on 05/27/16t 05:02; Admin Dose 60 MLS/HR; Start 05/24/16 at 14:30 AMBER LIEBERMAN MD May 27, 2016 13:59
[2016-05-27] MEDS: DAPTOMYCIN 540 MG in SOD CHLORIDE 0.9% 100 ML IVPB SCH (14:28)
[2016-05-27] MEDS: ATORVASTATIN 20 MG TAB GTB SCH (20:45)
[2016-05-27] MEDS: INSULIN GLARGINE [LANtus] 3 ML PEN SC SCH (20:53)
[2016-05-28] VITALS (23 sets, daily range): BP systolic 116–135; BP diastolic 69–79; PULSE 99–108; RESP 14–21
[2016-05-28] MEDS: METOCLOPRAMIDE (1 MG/ML) 10 ML CUP GTB SCH ×4 (05:02→23:06)
[2016-05-28] MEDS: metroNIDAZOLE 500 MG TAB GTB SCH ×3 (05:03→20:02)
[2016-05-28] MEDS: INSULIN ASPART [NOVOLOG] 3 ML PEN SC SCH ×3 (05:03→20:03)
[2016-05-28] MEDS: ASPIRIN 81 MG TAB GTB SCH (08:05)
[2016-05-28] MEDS: LEVETIRACETAM (100 MG/ML) 5ML CUP GTB SCH ×2 (08:05→20:02)
[2016-05-28] MEDS: ASCORBIC ACID 500 MG TAB GTB SCH (08:06)
[2016-05-28] MEDS: MULTIVITAMINS 5 ML CUP GTB SCH (08:06)
[2016-05-28] MEDS: FAMOTIDINE 20 MG TAB GTB SCH (08:12)
[2016-05-28] MEDS: CITRIC ACID/NA CITRATE 30 ML CUP PO SCH ×3 (08:12→20:07)
--- NOTE | 2016-05-28 11:36 | CONS ---
Date/Time of Note Date/Time of Note DATE: 05/28/16 TIME: 11:35 Consult Date/Type/Reason Admit Date/Time May 04, 2016 at 05:51 Type of Consultation: pulmonary Ordering Provider: AMY HANKINS MD Subjective No new events remained stable on mechanical ventilation Objective Vital Signs Date Time Temp Pulse Resp B/P Pulse Ox O2 Delivery O2 Flow Rate FiO2 05/28/16 11:00 101 14 100 30 05/28/16 07:46 98.7 116/79 Intake and Output 05/27/16 05/27/16 05/28/16 15:00 23:00 07:00 Intake Total 1440 ml 620 ml Output Total 1300 ml 1000 ml Balance 140 ml -380 ml VITAL SIGNS: as above, chronically ill-appearing lady on mechanical ventilation NECK: Trach site clean and intact. CARDIAC: S1, S2, no added sounds or murmurs. CHEST: Diminished air entry bilaterally. No rales or wheezes. ABDOMEN: Soft, nontender. No guarding or rebound. EXTREMITIES: No cyanosis, clubbing, edema. NEUROLOGIC: Generalized weakness, unable to assess. Results/Medications Result Diagram: 05/26/1652905/26/16529 Results 24 hrs Laboratory Tests Test 05/27/16 13:17 05/27/16 20:49 05/28/16 04:57 Bedside Glucose 96 98 117 Medications Current Medications Morphine Sulfate (morphine) 2 mg Q4H PRN IV SEVERE PAIN LEVEL 7-10 Last administered on 05/07/16at 18:26; Admin Dose 2 MG; Start 05/04/16 at 07:30 Docusate Sodium (Colace) 100 mg Q12H PRN PO CONSTIPATION; Start 05/04/16 at 07 :30 Lorazepam (Ativan) 0.5 mg Q6H PRN IV ANXIETY Last administered on 05/06/16at 23 :58; Admin Dose 0.5 MG; Start 05/04/16 at 07:30 Hydralazine HCl (Apresoline) 10 mg Q6H PRN IV ELEVATED BLOOD PRESSURE; Start 05/04/16 at 07:30 Nitroglycerin (Nitroglycerin (Sl Tab) 0.4 Mg) 1 tab Q5M PRN SL ANGINA; Start 05/04/16 at 07:30 Acetaminophen (Tylenol Supp) 650 mg Q4 PRN [place] PAIN OR TEMP ABOVE 38C; Start at 07:30 Atorvastatin Calcium (Lipitor) 20 mg QHS GTB Last administered on 05/27/16 20: 45; Admin Dose 20 MG; Start 05/04/16 at 21:00 Bisacodyl (Dulcolax Supp) 10 mg Q24H PRN [place] CONSTIPATION; Start 05/04/16 at 07 :30 Levetiracetam (Keppra Liquid) 1,000 mg Q12 GTB Last administered on 05/28/16 08 :05; Admin Dose 1,000 MG; Start 05/04/16 at 09:00 Multivitamins (Thera-Plus) 5 ml DAILY GTB Last administered on 05/28/16 08:06; Admin Dose 5 ML; Start 05/04/16 at 09:00 Miscellaneous Information 1 ea NOTE XX ; Start 05/04/16 at 09:00 Glucose (Glutose) 15 gm Q15M PRN PO DECREASED GLUCOSE; Start 05/04/16 at 09:00 Glucose (Glutose) 22.5 gm Q15M PRN PO DECREASED GLUCOSE; Start 05/04/16 at 09: 00 Dextrose (D50w Syringe) 25 ml Q15M PRN IV DECREASED GLUCOSE; Start 05/04/16 at 09:00 Dextrose (D50w Syringe) 50 ml Q15M PRN IV DECREASED GLUCOSE; Start 05/04/16 at 09:00 Glucagon (Glucagen) 1 mg Q15M PRN IM DECREASED GLUCOSE; Start 05/04/16 at 09: 00 Glucose (Glutose) 15 gm Q15M PRN BUCCAL DECREASED GLUCOSE; Start 05/04/16 at 09:00 Acetaminophen (Tylenol Liquid) 650 mg Q6H PRN GTB PAIN LEVEL 1-3 OR FEVER Last administered on 05/20/16at 05:00; Admin Dose 650 MG; Start 05/04/16 at 18:30 Metronidazole (Flagyl) 500 mg Q8 GTB Last administered on 05/28/16 05:03; Admin Dose 500 MG; Start 05/05/16 at 14:00 Collagenase (Santyl) APPLY TO NECROTIC TISSUE DAILY TOP Last administered on 08:36; Admin Dose 1 APPLIC; Start 05/06/16 at 16:30 Collagenase (Santyl) APPLY TO NECROTIC AREA PRN PRN TOP SOILING Last administered on 05/21/16at 22:04; Admin Dose 3 APPLIC; Start 05/06/16 at 16:00 Aspirin (Aspirin) 81 mg DAILY GTB Last administered on 05/28/16 08:05; Admin Dose 81 MG; Start 05/10/16 at 09:00 Ascorbic Acid (Vitamin C) 500 mg DAILY GTB Last administered on 05/28/16 08:06 ; Admin Dose 500 MG; Start 05/10/16 at 11:00 Famotidine (Pepcid) 20 mg DAILY GTB Last administered on 05/28/16 08:12; Admin Dose 20 MG; Start 05/10/16 at 11:00 Acetaminophen/ Hydrocodone Bitart ([place] (5/325)) 1 tab Q6H PRN GTB MODERATE PAIN LEVEL 4-6; Start 05/10/16 at 13:30 Metoclopramide HCl (Reglan Liq) 10 mg Q6 GTB Last administered on 05/28/16 05: 02; Admin Dose 10 MG; Start 05/10/16 at 18:00 Hydralazine HCl (Apresoline) 25 mg Q8H GTB Last administered on 05/28/16 05:03 ; Admin Dose 25 MG; Start 05/14/16 at 20:00 Insulin Glargine (Lantus) 14 unit QPM SC Last administered on 05/27/16 20:53; Admin Dose 14 UNIT; Start 05/14/16 at 21:00 Citric Acid/ Sodium Citrate (Bicitra) 30 ml TID PO Last administered on 08:12; Admin Dose 30 ML; Start 05/15/16 at 21:00 Insulin Aspart NOVOLOG *MODERATE* ALGORITHM Q8 SC ; Start 05/20/16 at 14:00 Daptomycin 540 mg/ Sodium Chloride 100 ml @ 200 mls/hr Q24H IVPB Last administered on 05/27/16 14:28; Admin Dose 200 MLS/HR; Start 05/21/16 at 14:30 Sodium Chloride (1/2 NS) 1,000 ml @ 60 mls/hr [id number] IV Last administered on 05/27/16 23:44; Admin Dose 60 MLS/HR; Start 05/24/16 at 14:30 Assessment/Plan Chief Complaint/Hosp Course IMPRESSION AND PLAN 1. Chronic vent dependent respiratory failure. 2. Chronic encephalopathy. 3. Anemia of chronic disease. 4. Resolving sepsis. 5. Dysphagia with G-tube. The patient will require 1. Continued antibiotics per ID. 2. Vent support. 3. Wound care. 4. DVT and GI prophylaxis. 5. Monitor Hb. Placement Problems: JIMMY GONSALEZ MD, [facility] May 28, 2016 11:36
[2016-05-28] MEDS: COLLAGENASE 30 GM TUBE TOP SCH (12:30)
--- NOTE | 2016-05-28 13:49 | CONS ---
Date/Time of Note Date/Time of Note DATE: 05/28/16 TIME: 13:48 Consult Date/Type/Reason Admit Date/Time May 04, 2016 at 05:51 Type of Consultation: ID Ordering Provider: AMY HANKINS MD Subjective no acute changes, looks comfortable, no fevers Objective Vital Signs Date Time Temp Pulse Resp B/P Pulse Ox O2 Delivery O2 Flow Rate FiO2 05/28/16 13:02 106 15 100 30 05/28/16 11:47 98.5 120/75 Intake and Output 05/27/16 05/27/16 05/28/16 15:00 23:00 07:00 Intake Total 1440 ml 620 ml Output Total 1300 ml 1000 ml Balance 140 ml -380 ml Results/Medications Result Diagram: 05/26/1630 05/26/16 0530 Results 24 hrs Laboratory Tests Test 05/27/16 20:49 05/28/16 04:57 Bedside Glucose 98 117 Medications Current Medications Morphine Sulfate (morphine) 2 mg Q4H PRN IV SEVERE PAIN LEVEL 7-10 Last administered on 05/07/16at 18:26; Admin Dose 2 MG; Start 05/04/16 at 07:30 Docusate Sodium (Colace) 100 mg Q12H PRN PO CONSTIPATION; Start 05/04/16 at 07 :30 Lorazepam (Ativan) 0.5 mg Q6H PRN IV ANXIETY Last administered on 05/06/16at 23 :58; Admin Dose 0.5 MG; Start 05/04/16 at 07:30 Hydralazine HCl (Apresoline) 10 mg Q6H PRN IV ELEVATED BLOOD PRESSURE; Start 05/04/16 at 07:30 Nitroglycerin (Nitroglycerin (Sl Tab) 0.4 Mg) 1 tab Q5M PRN SL ANGINA; Start 05/04/16 at 07:30 Acetaminophen (Tylenol Supp) 650 mg Q4 PRN [place] PAIN OR TEMP ABOVE 38C; Start at 07:30 Atorvastatin Calcium (Lipitor) 20 mg QHS GTB Last administered on 05/27/16t 20: 45; Admin Dose 20 MG; Start 05/04/16 at 21:00 Bisacodyl (Dulcolax Supp) 10 mg Q24H PRN [place] CONSTIPATION; Start 05/04/16 at 07 :30 Levetiracetam (Keppra Liquid) 1,000 mg Q12 GTB Last administered on 05/28/16 08 :05; Admin Dose 1,000 MG; Start 05/04/16 at 09:00 Multivitamins (Thera-Plus) 5 ml DAILY GTB Last administered on 05/28/16 08:06; Admin Dose 5 ML; Start 05/04/16 at 09:00 Miscellaneous Information 1 ea NOTE XX ; Start 05/04/16 at 09:00 Glucose (Glutose) 15 gm Q15M PRN PO DECREASED GLUCOSE; Start 05/04/16 at 09:00 Glucose (Glutose) 22.5 gm Q15M PRN PO DECREASED GLUCOSE; Start 05/04/16 at 09: 00 Dextrose (D50w Syringe) 25 ml Q15M PRN IV DECREASED GLUCOSE; Start 05/04/16 at 09:00 Dextrose (D50w Syringe) 50 ml Q15M PRN IV DECREASED GLUCOSE; Start 05/04/16 at 09:00 Glucagon (Glucagen) 1 mg Q15M PRN IM DECREASED GLUCOSE; Start 05/04/16 at 09: 00 Glucose (Glutose) 15 gm Q15M PRN BUCCAL DECREASED GLUCOSE; Start 05/04/16 at 09:00 Acetaminophen (Tylenol Liquid) 650 mg Q6H PRN GTB PAIN LEVEL 1-3 OR FEVER Last administered on 05/20/16at 05:00; Admin Dose 650 MG; Start 05/04/16 at 18:30 Metronidazole (Flagyl) 500 mg Q8 GTB Last administered on 05/28/16 05:03; Admin Dose 500 MG; Start 05/05/16 at 14:00 Collagenase (Santyl) APPLY TO NECROTIC TISSUE DAILY TOP Last administered on 12:30; Admin Dose 1 APPLIC; Start 05/06/16 at 16:30 Collagenase (Santyl) APPLY TO NECROTIC AREA PRN PRN TOP SOILING Last administered on 05/21/16at 22:04; Admin Dose 3 APPLIC; Start 05/06/16 at 16:00 Aspirin (Aspirin) 81 mg DAILY GTB Last administered on 05/28/16 08:05; Admin Dose 81 MG; Start 05/10/16 at 09:00 Ascorbic Acid (Vitamin C) 500 mg DAILY GTB Last administered on 05/28/16 08:06 ; Admin Dose 500 MG; Start 05/10/16 at 11:00 Famotidine (Pepcid) 20 mg DAILY GTB Last administered on 05/28/16 08:12; Admin Dose 20 MG; Start 05/10/16 at 11:00 Acetaminophen/ Hydrocodone Bitart ([place] (5/325)) 1 tab Q6H PRN GTB MODERATE PAIN LEVEL 4-6; Start 05/10/16 at 13:30 Metoclopramide HCl (Reglan Liq) 10 mg Q6 GTB Last administered on 05/28/16 12: 51; Admin Dose 10 MG; Start 05/10/16 at 18:00 Hydralazine HCl (Apresoline) 25 mg Q8H GTB Last administered on 05/28/16 12:51 ; Admin Dose 25 MG; Start 05/14/16 at 20:00 Insulin Glargine (Lantus) 14 unit QPM SC Last administered on 05/27/16 20:53; Admin Dose 14 UNIT; Start 05/14/16 at 21:00 Citric Acid/ Sodium Citrate (Bicitra) 30 ml TID PO Last administered on 12:51; Admin Dose 30 ML; Start 05/15/16 at 21:00 Insulin Aspart NOVOLOG *MODERATE* ALGORITHM Q8 SC ; Start 05/20/16 at 14:00 Daptomycin 540 mg/ Sodium Chloride 100 ml @ 200 mls/hr Q24H IVPB Last administered on 05/27/16 14:28; Admin Dose 200 MLS/HR; Start 05/21/16 at 14:30 Sodium Chloride (1/2 NS) 1,000 ml @ 60 mls/hr [id number] IV Last administered on 05/27/16 23:44; Admin Dose 60 MLS/HR; Start 05/24/16 at 14:30 Assessment/Plan Chief Complaint/Hosp Course INDWELLINGS: Trach, PEG, Reynolds, SALES AND SERVICE CONSULTANT shunt. ANTIMICROBIALS: Daptomycin Flagyl PHYSICAL EXAMINATION: GENERAL: This is a chronically ill-appearing, middle-aged woman who is obtunded in no distress. HEENT: Head atraumatic, normocephalic. Sclerae anicteric. Buccal mucosa dry. NECK: Supple. Tracheostomy present. CHEST: Rise symmetrical. Breath sounds diminished at the bases. HEART: S1, S2. ABDOMEN: Soft, bowel tones present. EXTREMITIES: Without cyanosis. ASSESSMENT: 1. S/p sepsis with shock. 2. Clostridium difficile colitis. 3. Unstageable sacral decubitus, possible osteomyelitis with a history of multiple debridements. 4. 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 5. Seizure disorder. 6. Chronic encephalopathy. 7. Urinary tract infection===> MDRO. 8. A/CKD PLAN: Clinically unchanged, Colistin was dc's 2 to worsening renal f-n, continue abx, consider surgical eval for poss wound debridement. ?palliative care eval staff Problems: DUTCH STEELE NP May 28, 2016 13:49
--- NOTE | 2016-05-28 14:11 | PN ---
Date/Time of Note Date/Time of Note DATE: 05/28/16 TIME: 14:08 Assessment/Plan VTE Prophylaxis VTE Prophylaxis Intervention: SCD's Lines/Catheters IV Catheter Type (from [facility]): Peripheral IV Urinary Cath still in place: Yes Reason Cath still needed: other (indicate) Assessment/Plan Chief Complaint/Hosp Course ASSESSMENT AND PLAN: 1. Sepsis, likely secondary to urinary tract infection versus sacral decubitus. The patient has been started on daptomycin and Colistimethate as per ID recommendations . Follow up infectious disease recommendations. 2. Ventilator-dependent respiratory failure, status post trach. Pulmonology has been consulted. 3. Acute renal insufficiency, improving status post IVF, likely secondary to sepsis versus dehydration. nephrology consulted. 4. Diabetes mellitus. Continue sliding scale and Lantus. 5. History of cerebrovascular accident. No acute issues at this time. Patient is bed bound and a phasic 6. 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 7. Seizure disorder. 8. Chronic encephalopathy. 9. Urinary tract infection===> MDRO, urine culture KLEB PNEUMONIAE CARBAPENEMASE, follow up in infectious disease recommendations 10. Essential Hypertension, continue to monitor restart blood pressure medications cautiously 11. C. difficile toxin, repeat stool negative for C. difficile , follow-up ID recommendations to discontinue Flagyl 12. Hypokalemia, repleted 13. Hypernatremia, resolved 14. Unstageable sacral decubitus, possible osteomyelitis with a history of multiple debridements. We will continue monitor patient closely for recommendation management treatment as per clinical course Condition guarded Continue to monitor in telemetry floor Plan to discharge to halfway facility when bed is available We will follow up with infectious disease physician regarding isolation status and discharge Problems: Subjective 24 Hr Interval Summary Free Text/Dictation No acute changes Patient is afebrile Unfortunately her was not able to make to the hospital to meet with the physician to discuss the care Tolerating PEG tube feeding Exam/Review of Systems Vital Signs Vitals Vital Signs Date Time Temp Pulse Resp B/P Pulse Ox O2 Delivery O2 Flow Rate FiO2 05/28/16 13:02 106 15 100 30 05/28/16 11:47 98.5 120/75 Intake and Output 05/27/16 05/27/16 05/28/16 15:00 23:00 07:00 Intake Total 1440 ml 620 ml Output Total 1300 ml 1000 ml Balance 140 ml -380 ml Exam General: The patient is a phasic, on vent via trach, does not respond to any pain or verbal stimuli HEENT: Atraumatic, normocephalic. The pupils are equal Neck: Supple , trach in place Chest: Normal Lungs: Decreased breath sounds bilateral lower lung field, positive crackles Heart: Normal S1-S2, Regular rhythm and rate. Abdomen: Soft , nontender, nondistended , bowel sounds are present. PEG tube in place Extremities: Flaccid, + 2 edema no cyanosis Neurologic: No meaningful neurologic examination findings Skin: Stage IV sacral decubitus Results Result Diagram: 05/26/16 0530 05/26/16 0530 Results 24 hrs Laboratory Tests Test 05/27/16 20:49 05/28/16 04:57 Bedside Glucose 98 117 Medications Medications Current Medications Morphine Sulfate (morphine) 2 mg Q4H PRN IV SEVERE PAIN LEVEL 7-10 Last administered on 05/07/16at 18:26; Admin Dose 2 MG; Start 05/04/16 at 07:30 Docusate Sodium (Colace) 100 mg Q12H PRN PO CONSTIPATION; Start 05/04/16 at 07 :30 Lorazepam (Ativan) 0.5 mg Q6H PRN IV ANXIETY Last administered on 05/06/16at 23 :58; Admin Dose 0.5 MG; Start 05/04/16 at 07:30 Hydralazine HCl (Apresoline) 10 mg Q6H PRN IV ELEVATED BLOOD PRESSURE; Start 05/04/16 at 07:30 Nitroglycerin (Nitroglycerin (Sl Tab) 0.4 Mg) 1 tab Q5M PRN SL ANGINA; Start 05/04/16 at 07:30 Acetaminophen (Tylenol Supp) 650 mg Q4 PRN [place] PAIN OR TEMP ABOVE 38C; Start at 07:30 Atorvastatin Calcium (Lipitor) 20 mg QHS GTB Last administered on 05/27/16t 20: 45; Admin Dose 20 MG; Start 05/04/16 at 21:00 Bisacodyl (Dulcolax Supp) 10 mg Q24H PRN [place] CONSTIPATION; Start 05/04/16 at 07 :30 Levetiracetam (Keppra Liquid) 1,000 mg Q12 GTB Last administered on 05/28/16 08 :05; Admin Dose 1,000 MG; Start 05/04/16 at 09:00 Multivitamins (Thera-Plus) 5 ml DAILY GTB Last administered on 05/28/16 08:06; Admin Dose 5 ML; Start 05/04/16 at 09:00 Miscellaneous Information 1 ea NOTE XX ; Start 05/04/16 at 09:00 Glucose (Glutose) 15 gm Q15M PRN PO DECREASED GLUCOSE; Start 05/04/16 at 09:00 Glucose (Glutose) 22.5 gm Q15M PRN PO DECREASED GLUCOSE; Start 05/04/16 at 09: 00 Dextrose (D50w Syringe) 25 ml Q15M PRN IV DECREASED GLUCOSE; Start 05/04/16 at 09:00 Dextrose (D50w Syringe) 50 ml Q15M PRN IV DECREASED GLUCOSE; Start 05/04/16 at 09:00 Glucagon (Glucagen) 1 mg Q15M PRN IM DECREASED GLUCOSE; Start 05/04/16 at 09: 00 Glucose (Glutose) 15 gm Q15M PRN BUCCAL DECREASED GLUCOSE; Start 05/04/16 at 09:00 Acetaminophen (Tylenol Liquid) 650 mg Q6H PRN GTB PAIN LEVEL 1-3 OR FEVER Last administered on 05/20/16at 05:00; Admin Dose 650 MG; Start 05/04/16 at 18:30 Metronidazole (Flagyl) 500 mg Q8 GTB Last administered on 05/28/16 05:03; Admin Dose 500 MG; Start 05/05/16 at 14:00 Collagenase (Santyl) APPLY TO NECROTIC TISSUE DAILY TOP Last administered on 12:30; Admin Dose 1 APPLIC; Start 05/06/16 at 16:30 Collagenase (Santyl) APPLY TO NECROTIC AREA PRN PRN TOP SOILING Last administered on 05/21/16at 22:04; Admin Dose 3 APPLIC; Start 05/06/16 at 16:00 Aspirin (Aspirin) 81 mg DAILY GTB Last administered on 05/28/16 08:05; Admin Dose 81 MG; Start 05/10/16 at 09:00 Ascorbic Acid (Vitamin C) 500 mg DAILY GTB Last administered on 05/28/16 08:06 ; Admin Dose 500 MG; Start 05/10/16 at 11:00 Famotidine (Pepcid) 20 mg DAILY GTB Last administered on 05/28/16 08:12; Admin Dose 20 MG; Start 05/10/16 at 11:00 Acetaminophen/ Hydrocodone Bitart ([place] (5/325)) 1 tab Q6H PRN GTB MODERATE PAIN LEVEL 4-6; Start 05/10/16 at 13:30 Metoclopramide HCl (Reglan Liq) 10 mg Q6 GTB Last administered on 05/28/16 12: 51; Admin Dose 10 MG; Start 05/10/16 at 18:00 Hydralazine HCl (Apresoline) 25 mg Q8H GTB Last administered on 05/28/16 12:51 ; Admin Dose 25 MG; Start 05/14/16 at 20:00 Insulin Glargine (Lantus) 14 unit QPM SC Last administered on 05/27/16 20:53; Admin Dose 14 UNIT; Start 05/14/16 at 21:00 Citric Acid/ Sodium Citrate (Bicitra) 30 ml TID PO Last administered on 12:51; Admin Dose 30 ML; Start 05/15/16 at 21:00 Insulin Aspart NOVOLOG *MODERATE* ALGORITHM Q8 SC ; Start 05/20/16 at 14:00 Daptomycin 540 mg/ Sodium Chloride 100 ml @ 200 mls/hr Q24H IVPB Last administered on 05/27/16 14:28; Admin Dose 200 MLS/HR; Start 05/21/16 at 14:30 Sodium Chloride (1/2 NS) 1,000 ml @ 60 mls/hr [id number] IV Last administered on 05/27/16 23:44; Admin Dose 60 MLS/HR; Start 05/24/16 at 14:30 AMY HANKINS MD May 28, 2016 14:10
[2016-05-28] MEDS: DAPTOMYCIN 540 MG in SOD CHLORIDE 0.9% 100 ML IVPB SCH (15:10)
--- NOTE | 2016-05-28 17:17 | CONS ---
Date/Time of Note Date/Time of Note DATE: 05/28/16 TIME: 17:16 Assessment/Plan Assessment/Plan Chief Complaint/Hosp Course IMPRESSION: 1. Patient has [id number] kidney disease. 2. Acute renal failure drug induced atn 3. Underlying acute tubular necrosis due to sepsis/meds. 4. Severe sepsis.c diff 5. hypernatremia.better 6. Free water deficit.BETTER 7. RES FAILURE 8. Lactic acidosis.BETTER 9. vdrf. 10. Anemia. 11. History of tracheostomy. 12 METABOLIC ACIDOSIS better PLAN [facility] avoid nephrotoxic drugs iv fluid Problems: Consultation Date/Type/Reason Admit Date/Time May 04, 2016 at 05:51 Type of Consultation: renal Referring Provider: AMY HANKINS MD 24 HR Interval Summary Subjective hx not possible: pt non-verbal Exam/Review of Systems Vital Signs Vitals Vital Signs Date Time Temp Pulse Resp B/P Pulse Ox O2 Delivery O2 Flow Rate FiO2 05/28/16 16:30 99 05/28/16 16:27 98.5 20 135/79 99 05/28/16 15:06 30 Intake and Output 05/27/16 05/27/16 05/28/16 14:59 22:59 06:59 Intake Total 1440 ml 620 ml Output Total 1300 ml 1000 ml Balance 140 ml -380 ml Exam Neck: supple Respiratory: clear to auscultation Cardiovascular: regular rate and rhythm Gastrointestinal: soft Results Result Diagram: 05/26/16 0530 05/26/16 0530 Results 24 hrs Laboratory Tests Test 05/27/16 20:49 05/28/16 04:57 05/28/16 14:27 Bedside Glucose 98 117 98 Medications Medications Current Medications Morphine Sulfate (morphine) 2 mg Q4H PRN IV SEVERE PAIN LEVEL 7-10 Last administered on 05/07/16at 18:26; Admin Dose 2 MG; Start 05/04/16 at 07:30 Docusate Sodium (Colace) 100 mg Q12H PRN PO CONSTIPATION; Start 05/04/16 at 07 :30 Lorazepam (Ativan) 0.5 mg Q6H PRN IV ANXIETY Last administered on 05/06/16at 23 :58; Admin Dose 0.5 MG; Start 05/04/16 at 07:30 Hydralazine HCl (Apresoline) 10 mg Q6H PRN IV ELEVATED BLOOD PRESSURE; Start 05/04/16 at 07:30 Nitroglycerin (Nitroglycerin (Sl Tab) 0.4 Mg) 1 tab Q5M PRN SL ANGINA; Start 05/04/16 at 07:30 Acetaminophen (Tylenol Supp) 650 mg Q4 PRN [place] PAIN OR TEMP ABOVE 38C; Start at 07:30 Atorvastatin Calcium (Lipitor) 20 mg QHS GTB Last administered on 05/27/16 20: 45; Admin Dose 20 MG; Start 05/04/16 at 21:00 Bisacodyl (Dulcolax Supp) 10 mg Q24H PRN [place] CONSTIPATION; Start 05/04/16 at 07 :30 Levetiracetam (Keppra Liquid) 1,000 mg Q12 GTB Last administered on 05/28/16 08 :05; Admin Dose 1,000 MG; Start 05/04/16 at 09:00 Multivitamins (Thera-Plus) 5 ml DAILY GTB Last administered on 05/28/16 08:06; Admin Dose 5 ML; Start 05/04/16 at 09:00 Miscellaneous Information 1 ea NOTE XX ; Start 05/04/16 at 09:00 Glucose (Glutose) 15 gm Q15M PRN PO DECREASED GLUCOSE; Start 05/04/16 at 09:00 Glucose (Glutose) 22.5 gm Q15M PRN PO DECREASED GLUCOSE; Start 05/04/16 at 09: 00 Dextrose (D50w Syringe) 25 ml Q15M PRN IV DECREASED GLUCOSE; Start 05/04/16 at 09:00 Dextrose (D50w Syringe) 50 ml Q15M PRN IV DECREASED GLUCOSE; Start 05/04/16 at 09:00 Glucagon (Glucagen) 1 mg Q15M PRN IM DECREASED GLUCOSE; Start 05/04/16 at 09: 00 Glucose (Glutose) 15 gm Q15M PRN BUCCAL DECREASED GLUCOSE; Start 05/04/16 at 09:00 Acetaminophen (Tylenol Liquid) 650 mg Q6H PRN GTB PAIN LEVEL 1-3 OR FEVER Last administered on 05/20/16at 05:00; Admin Dose 650 MG; Start 05/04/16 at 18:30 Metronidazole (Flagyl) 500 mg Q8 GTB Last administered on 1/6/17at 14:22; Admin Dose 500 MG; Start 05/05/16 at 14:00 Collagenase (Santyl) APPLY TO NECROTIC TISSUE DAILY TOP Last administered on 12:30; Admin Dose 1 APPLIC; Start 05/06/16 at 16:30 Collagenase (Santyl) APPLY TO NECROTIC AREA PRN PRN TOP SOILING Last administered on 05/21/16at 22:04; Admin Dose 3 APPLIC; Start 05/06/16 at 16:00 Aspirin (Aspirin) 81 mg DAILY GTB Last administered on 05/28/16 08:05; Admin Dose 81 MG; Start 05/10/16 at 09:00 Ascorbic Acid (Vitamin C) 500 mg DAILY GTB Last administered on 05/28/16 08:06 ; Admin Dose 500 MG; Start 05/10/16 at 11:00 Famotidine (Pepcid) 20 mg DAILY GTB Last administered on 05/28/16 08:12; Admin Dose 20 MG; Start 05/10/16 at 11:00 Acetaminophen/ Hydrocodone Bitart ([place] (5/325)) 1 tab Q6H PRN GTB MODERATE PAIN LEVEL 4-6; Start 05/10/16 at 13:30 Metoclopramide HCl (Reglan Liq) 10 mg Q6 GTB Last administered on 05/28/16 12: 51; Admin Dose 10 MG; Start 05/10/16 at 18:00 Hydralazine HCl (Apresoline) 25 mg Q8H GTB Last administered on 05/28/16 12:51 ; Admin Dose 25 MG; Start 05/14/16 at 20:00 Insulin Glargine (Lantus) 14 unit QPM SC Last administered on 05/27/16 20:53; Admin Dose 14 UNIT; Start 05/14/16 at 21:00 Citric Acid/ Sodium Citrate (Bicitra) 30 ml TID PO Last administered on 12:51; Admin Dose 30 ML; Start 05/15/16 at 21:00 Insulin Aspart NOVOLOG *MODERATE* ALGORITHM Q8 SC ; Start 05/20/16 at 14:00 Daptomycin 540 mg/ Sodium Chloride 100 ml @ 200 mls/hr Q24H IVPB Last administered on 05/28/16 15:10; Admin Dose 200 MLS/HR; Start 05/21/16 at 14:30 Sodium Chloride (1/2 NS) 1,000 ml @ 60 mls/hr [id number] IV Last administered on 05/27/16t 23:44; Admin Dose 60 MLS/HR; Start 05/24/16 at 14:30 AMBER LIEBERMAN MD May 28, 2016 17:16
[2016-05-28] MEDS: SOD CHLORIDE 0.45% 1,000 ML IV SCH (18:17)
[2016-05-28] MEDS: ATORVASTATIN 20 MG TAB GTB SCH (20:02)
[2016-05-28] MEDS: INSULIN GLARGINE [LANtus] 3 ML PEN SC SCH (20:05)
[2016-05-29] VITALS (26 sets, daily range): BP systolic 105–127; BP diastolic 57–82; PULSE 96–109; RESP 14–26
[2016-05-29] MEDS: metroNIDAZOLE 500 MG TAB GTB SCH ×3 (05:12→22:48)
[2016-05-29] MEDS: METOCLOPRAMIDE (1 MG/ML) 10 ML CUP GTB SCH ×4 (05:12→22:47)
[2016-05-29] MEDS: INSULIN ASPART [NOVOLOG] 3 ML PEN SC SCH ×3 (05:12→22:00)
[2016-05-29 06:19] LABS: BASOPHILS % 0.1 % (0.0-2.0); EOSINOPHILS # 0.2 10^3/ul (0.0-0.5); EOSINOPHILS % 1.5 % (0.0-7.0); HEMATOCRIT 29.2 % (37.0-47.0); LYMPHOCYTES # 2.1 10^3/ul (0.8-2.9); MEAN CORPUSCULAR HGB CONC 34.1 g/dl (32.0-37.0); MEAN CORPUSCULAR VOLUME 90.9 fl (82.0-101.0); MEAN PLATELET VOLUME 6.9 fl (7.4-10.4); MONOCYTE # 1.1 10^3/ul (0.3-0.9); MONOCYTES % 7.5 % (0.0-11.0); NEUTROPHIL # 11.7 10^3/ul (1.6-7.5); NEUTROPHILS % 76.9 % (39.0-77.0); PLATELET COUNT 550 10^3/UL (140-440); RED BLOOD COUNT 3.22 10^6/ul (4.20-5.40); RED CELL DISTRIBUTION WIDTH 15.6 % (11.5-14.5); UNCORRECTED WBC 15.2 10^3/ul (4.8-10.8); WHITE BLOOD COUNT 15.2 10^3/ul (4.8-10.8)
[2016-05-29 06:37] LABS: CONDITION 1; LH ANALYZER COMMENTS 1
[2016-05-29 06:59] LABS: POTASSIUM 4.3 mmol/L (3.5-5.1)
[2016-05-29 07:02] LABS: CALCIUM 7.9 mg/dl (8.4-10.2); CREATININE 2.09 mg/dl (0.44-1.00)
[2016-05-29] MEDS: LEVETIRACETAM (100 MG/ML) 5ML CUP GTB SCH ×2 (08:55→22:48)
[2016-05-29] MEDS: ASCORBIC ACID 500 MG TAB GTB SCH (08:55)
[2016-05-29] MEDS: ASPIRIN 81 MG TAB GTB SCH (08:55)
[2016-05-29] MEDS: FAMOTIDINE 20 MG TAB GTB SCH (08:56)
[2016-05-29] MEDS: COLLAGENASE 30 GM TUBE TOP SCH (08:56)
[2016-05-29] MEDS: MULTIVITAMINS 5 ML CUP GTB SCH (08:56)
[2016-05-29] MEDS: CITRIC ACID/NA CITRATE 30 ML CUP PO SCH ×3 (08:56→22:48)
--- NOTE | 2016-05-29 11:21 | PN ---
Date/Time of Note Date/Time of Note DATE: 05/29/16 TIME: 11:18 Assessment/Plan VTE Prophylaxis VTE Prophylaxis Intervention: SCD's Lines/Catheters IV Catheter Type (from Nrs): Peripheral IV Urinary Cath still in place: Yes Reason Cath still needed: urinary retention Assessment/Plan Chief Complaint/Hosp Course ASSESSMENT AND PLAN: 1. Sepsis, likely secondary to urinary tract infection versus sacral decubitus. The patient has been started on daptomycin and Colistimethate as per ID recommendations . Follow up infectious disease recommendations. 2. Ventilator-dependent respiratory failure, status post trach. Pulmonology has been consulted. 3. Acute renal insufficiency, restart IVF, likely secondary to sepsis versus dehydration. nephrology consulted. 4. Diabetes mellitus. Continue sliding scale and Lantus. 5. History of cerebrovascular accident. No acute issues at this time. Patient is bed bound and a phasic 6. History of methicillin-resistant Staphylococcus aureus infected ventriculoperitoneal shunt removal with new LOAN SUPERVISOR shunt placement. 7. Seizure disorder. Continue Keppra 8. Chronic encephalopathy. Secondary to history of CVA 9. Urinary tract infection===> MDRO, urine culture KLEB PNEUMONIAE CARBAPENEMASE, follow up in infectious disease recommendations 10. Essential Hypertension, continue to monitor restart blood pressure medications cautiously 11. C. difficile toxin, repeat stool negative for C. difficile , follow-up ID recommendations to discontinue Flagyl 12. Hypokalemia, repleted 13. Hypernatremia, resolved 14. Unstageable sacral decubitus, possible osteomyelitis with a history of multiple debridements. We will continue monitor patient closely for recommendation management treatment as per clinical course Condition guarded Continue to monitor in telemetry floor Plan to discharge to intermediate facility when bed is available Plan to transfer to [facility] when excepted Problems: Subjective 24 Hr Interval Summary Free Text/Dictation No acute changes Tolerating PEG tube feeding Exam/Review of Systems Vital Signs Vitals Vital Signs Date Time Temp Pulse Resp B/P Pulse Ox O2 Delivery O2 Flow Rate FiO2 05/29/16 09:35 96 22 100 30 05/29/16 08:09 98.5 118/82 Intake and Output 05/28/16 05/28/16 05/29/16 15:00 23:00 07:00 Intake Total 60 ml 1640 ml Output Total 800 ml Balance 60 ml 840 ml Exam General: The patient is a phasic, on vent via trach, does not respond to any pain or verbal stimuli HEENT: Atraumatic, normocephalic. The pupils are equal Neck: Supple , trach in place Chest: Normal Lungs: Decreased breath sounds bilateral lower lung field, positive crackles Heart: Normal S1-S2, Regular rhythm and rate. Abdomen: Soft , nontender, nondistended , bowel sounds are present. PEG tube in place Extremities: Flaccid, + 2 edema no cyanosis Neurologic: No meaningful neurologic examination findings Skin: Stage IV sacral decubitus Results Result Diagram: 05/29/16 0538 05/29/16 0538 Results 24 hrs Laboratory Tests Test 05/28/16 14:27 05/28/16 19:55 05/28/16 23:03 05/29/16 05:10 Bedside Glucose 98 97 120 108 Test 05/29/16 05:38 Anion Gap 17 H Basophils # 0.0 Basophils % 0.1 Blood Morphology Comment Blood Urea Nitrogen 45 H Calcium Level 7.9 L Carbon Dioxide Level 21 Chloride Level 105 Creatine Kinase < 20 L Creatinine 2.09 H Eosinophils # 0.2 Eosinophils % 1.5 Glucose Level 77 Hematocrit 29.2 L Hemoglobin 10.0 L Lymphocytes # 2.1 Lymphocytes % 14.0 L Mean Corpuscular Hemoglobin 31.0 Mean Corpuscular Hemoglobin Concent 34.1 Mean Corpuscular Volume 90.9 Mean Platelet Volume 6.9 L Monocytes # 1.1 H Monocytes % 7.5 Neutrophils # 11.7 H Neutrophils % 76.9 Nucleated Red Blood Cells # 0.0 Nucleated Red Blood Cells % 0.0 Platelet Count 550 H Potassium Level 4.3 Red Blood Count 3.22 L Red Cell Distribution Width 15.6 H Sodium Level 139 White Blood Count 15.2 H Medications Medications Current Medications Morphine Sulfate (morphine) 2 mg Q4H PRN IV SEVERE PAIN LEVEL 7-10 Last administered on 05/07/16at 18:26; Admin Dose 2 MG; Start 05/04/16 at 07:30 Docusate Sodium (Colace) 100 mg Q12H PRN PO CONSTIPATION; Start 05/04/16 at 07 :30 Lorazepam (Ativan) 0.5 mg Q6H PRN IV ANXIETY Last administered on 05/06/16at 23 :58; Admin Dose 0.5 MG; Start 05/04/16 at 07:30 Hydralazine HCl (Apresoline) 10 mg Q6H PRN IV ELEVATED BLOOD PRESSURE; Start 05/04/16 at 07:30 Nitroglycerin (Nitroglycerin (Sl Tab) 0.4 Mg) 1 tab Q5M PRN SL ANGINA; Start 05/04/16 at 07:30 Acetaminophen (Tylenol Supp) 650 mg Q4 PRN [place] PAIN OR TEMP ABOVE 38C; Start at 07:30 Atorvastatin Calcium (Lipitor) 20 mg QHS GTB Last administered on 05/28/16 20: 02; Admin Dose 20 MG; Start 05/04/16 at 21:00 Bisacodyl (Dulcolax Supp) 10 mg Q24H PRN [place] CONSTIPATION; Start 05/04/16 at 07 :30 Levetiracetam (Keppra Liquid) 1,000 mg Q12 GTB Last administered on 05/29/16 08 :55; Admin Dose 1,000 MG; Start 05/04/16 at 09:00 Multivitamins (Thera-Plus) 5 ml DAILY GTB Last administered on 05/29/16 08:56; Admin Dose 5 ML; Start 05/04/16 at 09:00 Miscellaneous Information 1 ea NOTE XX ; Start 05/04/16 at 09:00 Glucose (Glutose) 15 gm Q15M PRN PO DECREASED GLUCOSE; Start 05/04/16 at 09:00 Glucose (Glutose) 22.5 gm Q15M PRN PO DECREASED GLUCOSE; Start 05/04/16 at 09: 00 Dextrose (D50w Syringe) 25 ml Q15M PRN IV DECREASED GLUCOSE; Start 05/04/16 at 09:00 Dextrose (D50w Syringe) 50 ml Q15M PRN IV DECREASED GLUCOSE; Start 05/04/16 at 09:00 Glucagon (Glucagen) 1 mg Q15M PRN IM DECREASED GLUCOSE; Start 05/04/16 at 09: 00 Glucose (Glutose) 15 gm Q15M PRN BUCCAL DECREASED GLUCOSE; Start 05/04/16 at 09:00 Acetaminophen (Tylenol Liquid) 650 mg Q6H PRN GTB PAIN LEVEL 1-3 OR FEVER Last administered on 05/20/16at 05:00; Admin Dose 650 MG; Start 05/04/16 at 18:30 Metronidazole (Flagyl) 500 mg Q8 GTB Last administered on 05/29/16 05:12; Admin Dose 500 MG; Start 05/05/16 at 14:00 Collagenase (Santyl) APPLY TO NECROTIC TISSUE DAILY TOP Last administered on 08:56; Admin Dose 1 APPLIC; Start 05/06/16 at 16:30 Collagenase (Santyl) APPLY TO NECROTIC AREA PRN PRN TOP SOILING Last administered on 05/21/16at 22:04; Admin Dose 3 APPLIC; Start 05/06/16 at 16:00 Aspirin (Aspirin) 81 mg DAILY GTB Last administered on 05/29/16 08:55; Admin Dose 81 MG; Start 05/10/16 at 09:00 Ascorbic Acid (Vitamin C) 500 mg DAILY GTB Last administered on 05/29/16 08:55 ; Admin Dose 500 MG; Start 05/10/16 at 11:00 Famotidine (Pepcid) 20 mg DAILY GTB Last administered on 05/29/16 08:56; Admin Dose 20 MG; Start 05/10/16 at 11:00 Acetaminophen/ Hydrocodone Bitart ([place] (5/325)) 1 tab Q6H PRN GTB MODERATE PAIN LEVEL 4-6; Start 05/10/16 at 13:30 Metoclopramide HCl (Reglan Liq) 10 mg Q6 GTB Last administered on 05/29/16 05: 12; Admin Dose 10 MG; Start 05/10/16 at 18:00 Hydralazine HCl (Apresoline) 25 mg Q8H GTB Last administered on 05/29/16 04:00 ; Admin Dose 25 MG; Start 05/14/16 at 20:00 Insulin Glargine (Lantus) 14 unit QPM SC Last administered on 05/28/16 20:05; Admin Dose 14 UNIT; Start 05/14/16 at 21:00 Citric Acid/ Sodium Citrate (Bicitra) 30 ml TID PO Last administered on 08:56; Admin Dose 30 ML; Start 05/15/16 at 21:00 Insulin Aspart NOVOLOG *MODERATE* ALGORITHM Q8 SC ; Start 05/20/16 at 14:00 Daptomycin 540 mg/ Sodium Chloride 100 ml @ 200 mls/hr Q24H IVPB Last administered on 1/6/17at 15:10; Admin Dose 200 MLS/HR; Start 05/21/16 at 14:30 Dextrose/Sodium Chloride (D5-1/2ns) 1,000 ml @ 50 mls/hr Q20H IV ; Start at 11:30; Stop 05/31/16 at 11:29 AMY HANKINS MD May 29, 2016 11:21
[2016-05-29] MEDS: DEXTROSE 5%-0.45% NACL 1,000 ML IV SCH (11:32)
--- NOTE | 2016-05-29 13:00 | CONS ---
Date/Time of Note Date/Time of Note DATE: 05/29/16 TIME: 12:58 Assessment/Plan Assessment/Plan Additional Assessment/Plan 1. Sepsis, likely secondary to urinary tract infection versus sacral decubitus. 2. Ventilator-dependent respiratory failure, status post trach. 3. ALEJANDRO due to severe prerenal azotemia 4. Diabetes mellitus. 5. History of cerebrovascular accident. 6. History of methicillin-resistant Staphylococcus aureus infected ventriculoperitoneal shunt removal with new GEODETIC COMPUTATOR shunt placement. 7. Seizure disorder. 8. Chronic encephalopathy. Secondary to history of CVA 9. Hypernatremia 10. Hypokalemia Plan: electrolytes stable today agree with switching IVF to D51/2NS will follow up Consultation Date/Type/Reason Admit Date/Time May 04, 2016 at 05:51 Type of Consultation: NEPHROLOGY Referring Provider: AMY HANKINS MD 24 HR Interval Summary Free Text/Dictation Electrolytes stable, BUN/Cr slightly increasing Exam/Review of Systems Vital Signs Vitals Vital Signs Date Time Temp Pulse Resp B/P Pulse Ox O2 Delivery O2 Flow Rate FiO2 05/29/16 12:19 103 05/29/16 12:01 98.5 19 127/79 99 05/29/16 11:18 30 Intake and Output 05/28/16 05/28/16 05/29/16 15:00 23:00 07:00 Intake Total 60 ml 1640 ml Output Total 800 ml Balance 60 ml 840 ml Results Result Diagram: 05/29/16 0538 05/29/16 0538 Results 24 hrs Laboratory Tests Test 05/28/16 14:27 05/28/16 19:55 05/28/16 23:03 05/29/16 05:10 Bedside Glucose 98 97 120 108 Test 05/29/16 05:38 Anion Gap 17 H Basophils # 0.0 Basophils % 0.1 Blood Morphology Comment Blood Urea Nitrogen 45 H Calcium Level 7.9 L Carbon Dioxide Level 21 Chloride Level 105 Creatine Kinase < 20 L Creatinine 2.09 H Eosinophils # 0.2 Eosinophils % 1.5 Glucose Level 77 Hematocrit 29.2 L Hemoglobin 10.0 L Lymphocytes # 2.1 Lymphocytes % 14.0 L Mean Corpuscular Hemoglobin 31.0 Mean Corpuscular Hemoglobin Concent 34.1 Mean Corpuscular Volume 90.9 Mean Platelet Volume 6.9 L Monocytes # 1.1 H Monocytes % 7.5 Neutrophils # 11.7 H Neutrophils % 76.9 Nucleated Red Blood Cells # 0.0 Nucleated Red Blood Cells % 0.0 Platelet Count 550 H Potassium Level 4.3 Red Blood Count 3.22 L Red Cell Distribution Width 15.6 H Sodium Level 139 White Blood Count 15.2 H Medications Medications Current Medications Morphine Sulfate (morphine) 2 mg Q4H PRN IV SEVERE PAIN LEVEL 7-10 Last administered on 05/07/16at 18:26; Admin Dose 2 MG; Start 05/04/16 at 07:30 Docusate Sodium (Colace) 100 mg Q12H PRN PO CONSTIPATION; Start 05/04/16 at 07 :30 Lorazepam (Ativan) 0.5 mg Q6H PRN IV ANXIETY Last administered on 05/06/16at 23 :58; Admin Dose 0.5 MG; Start 05/04/16 at 07:30 Hydralazine HCl (Apresoline) 10 mg Q6H PRN IV ELEVATED BLOOD PRESSURE; Start 05/04/16 at 07:30 Nitroglycerin (Nitroglycerin (Sl Tab) 0.4 Mg) 1 tab Q5M PRN SL ANGINA; Start 05/04/16 at 07:30 Acetaminophen (Tylenol Supp) 650 mg Q4 PRN [place] PAIN OR TEMP ABOVE 38C; Start at 07:30 Atorvastatin Calcium (Lipitor) 20 mg QHS GTB Last administered on 05/28/16 20: 02; Admin Dose 20 MG; Start 05/04/16 at 21:00 Bisacodyl (Dulcolax Supp) 10 mg Q24H PRN [place] CONSTIPATION; Start 05/04/16 at 07 :30 Levetiracetam (Keppra Liquid) 1,000 mg Q12 GTB Last administered on 05/29/16 08 :55; Admin Dose 1,000 MG; Start 05/04/16 at 09:00 Multivitamins (Thera-Plus) 5 ml DAILY GTB Last administered on 05/29/16 08:56; Admin Dose 5 ML; Start 05/04/16 at 09:00 Miscellaneous Information 1 ea NOTE XX ; Start 05/04/16 at 09:00 Glucose (Glutose) 15 gm Q15M PRN PO DECREASED GLUCOSE; Start 05/04/16 at 09:00 Glucose (Glutose) 22.5 gm Q15M PRN PO DECREASED GLUCOSE; Start 05/04/16 at 09: 00 Dextrose (D50w Syringe) 25 ml Q15M PRN IV DECREASED GLUCOSE; Start 05/04/16 at 09:00 Dextrose (D50w Syringe) 50 ml Q15M PRN IV DECREASED GLUCOSE; Start 05/04/16 at 09:00 Glucagon (Glucagen) 1 mg Q15M PRN IM DECREASED GLUCOSE; Start 05/04/16 at 09: 00 Glucose (Glutose) 15 gm Q15M PRN BUCCAL DECREASED GLUCOSE; Start 05/04/16 at 09:00 Acetaminophen (Tylenol Liquid) 650 mg Q6H PRN GTB PAIN LEVEL 1-3 OR FEVER Last administered on 05/20/16at 05:00; Admin Dose 650 MG; Start 05/04/16 at 18:30 Metronidazole (Flagyl) 500 mg Q8 GTB Last administered on 05/29/16 05:12; Admin Dose 500 MG; Start 05/05/16 at 14:00 Collagenase (Santyl) APPLY TO NECROTIC TISSUE DAILY TOP Last administered on 08:56; Admin Dose 1 APPLIC; Start 05/06/16 at 16:30 Collagenase (Santyl) APPLY TO NECROTIC AREA PRN PRN TOP SOILING Last administered on 05/21/16at 22:04; Admin Dose 3 APPLIC; Start 05/06/16 at 16:00 Aspirin (Aspirin) 81 mg DAILY GTB Last administered on 05/29/16 08:55; Admin Dose 81 MG; Start 05/10/16 at 09:00 Ascorbic Acid (Vitamin C) 500 mg DAILY GTB Last administered on 05/29/16 08:55 ; Admin Dose 500 MG; Start 05/10/16 at 11:00 Famotidine (Pepcid) 20 mg DAILY GTB Last administered on 05/29/16 08:56; Admin Dose 20 MG; Start 05/10/16 at 11:00 Acetaminophen/ Hydrocodone Bitart ([place] (5/325)) 1 tab Q6H PRN GTB MODERATE PAIN LEVEL 4-6; Start 05/10/16 at 13:30 Metoclopramide HCl (Reglan Liq) 10 mg Q6 GTB Last administered on 05/29/16 11: 32; Admin Dose 10 MG; Start 05/10/16 at 18:00 Hydralazine HCl (Apresoline) 25 mg Q8H GTB Last administered on 05/29/16 11:35 ; Admin Dose 25 MG; Start 05/14/16 at 20:00 Insulin Glargine (Lantus) 14 unit QPM SC Last administered on 05/28/16 20:05; Admin Dose 14 UNIT; Start 05/14/16 at 21:00 Citric Acid/ Sodium Citrate (Bicitra) 30 ml TID PO Last administered on 08:56; Admin Dose 30 ML; Start 05/15/16 at 21:00 Insulin Aspart NOVOLOG *MODERATE* ALGORITHM Q8 SC ; Start 05/20/16 at 14:00 Daptomycin 540 mg/ Sodium Chloride 100 ml @ 200 mls/hr Q24H IVPB Last administered on 05/28/16 15:10; Admin Dose 200 MLS/HR; Start 05/21/16 at 14:30 Dextrose/Sodium Chloride (D5-1/2ns) 1,000 ml @ 50 mls/hr Q20H IV Last administered on 05/29/16 11:32; Admin Dose 50 MLS/HR; Start 05/29/16 at 11:30; Stop 05/31/16 at 11:29 TAMMY NUÑEZ MD May 29, 2016 13:00
[2016-05-29] MEDS: DAPTOMYCIN 540 MG in SOD CHLORIDE 0.9% 100 ML IVPB SCH (13:18)
--- NOTE | 2016-05-29 14:28 | CONS ---
Date/Time of Note Date/Time of Note DATE: 05/29/16 TIME: 14:27 Consult Date/Type/Reason Admit Date/Time May 04, 2016 at 05:51 Type of Consultation: id Ordering Provider: AMY HANKINS MD Subjective no fevers, no events, noncommunicative, nad Objective Vital Signs Date Time Temp Pulse Resp B/P Pulse Ox O2 Delivery O2 Flow Rate FiO2 05/29/16 13:55 101 18 100 30 05/29/16 12:01 98.5 127/79 Intake and Output 05/28/16 05/28/16 05/29/16 15:00 23:00 07:00 Intake Total 60 ml 1640 ml Output Total 800 ml Balance 60 ml 840 ml Results/Medications Result Diagram: 05/29/16 0538 05/29/16 0538 Results 24 hrs Laboratory Tests Test 05/28/16 19:55 05/28/16 23:03 05/29/16 05:10 05/29/16 05:38 Bedside Glucose 97 120 108 Anion Gap 17 H Basophils # 0.0 Basophils % 0.1 Blood Morphology Comment Blood Urea Nitrogen 45 H Calcium Level 7.9 L Carbon Dioxide Level 21 Chloride Level 105 Creatine Kinase < 20 L Creatinine 2.09 H Eosinophils # 0.2 Eosinophils % 1.5 Glucose Level 77 Hematocrit 29.2 L Hemoglobin 10.0 L Lymphocytes # 2.1 Lymphocytes % 14.0 L Mean Corpuscular Hemoglobin 31.0 Mean Corpuscular Hemoglobin Concent 34.1 Mean Corpuscular Volume 90.9 Mean Platelet Volume 6.9 L Monocytes # 1.1 H Monocytes % 7.5 Neutrophils # 11.7 H Neutrophils % 76.9 Nucleated Red Blood Cells # 0.0 Nucleated Red Blood Cells % 0.0 Platelet Count 550 H Potassium Level 4.3 Red Blood Count 3.22 L Red Cell Distribution Width 15.6 H Sodium Level 139 White Blood Count 15.2 H Test 05/29/16 13:15 Bedside Glucose 114 Medications Current Medications Morphine Sulfate (morphine) 2 mg Q4H PRN IV SEVERE PAIN LEVEL 7-10 Last administered on 05/07/16at 18:26; Admin Dose 2 MG; Start 05/04/16 at 07:30 Docusate Sodium (Colace) 100 mg Q12H PRN PO CONSTIPATION; Start 05/04/16 at 07 :30 Lorazepam (Ativan) 0.5 mg Q6H PRN IV ANXIETY Last administered on 05/06/16at 23 :58; Admin Dose 0.5 MG; Start 05/04/16 at 07:30 Hydralazine HCl (Apresoline) 10 mg Q6H PRN IV ELEVATED BLOOD PRESSURE; Start 05/04/16 at 07:30 Nitroglycerin (Nitroglycerin (Sl Tab) 0.4 Mg) 1 tab Q5M PRN SL ANGINA; Start 05/04/16 at 07:30 Acetaminophen (Tylenol Supp) 650 mg Q4 PRN [place] PAIN OR TEMP ABOVE 38C; Start at 07:30 Atorvastatin Calcium (Lipitor) 20 mg QHS GTB Last administered on 05/28/16 20: 02; Admin Dose 20 MG; Start 05/04/16 at 21:00 Bisacodyl (Dulcolax Supp) 10 mg Q24H PRN [place] CONSTIPATION; Start 05/04/16 at 07 :30 Levetiracetam (Keppra Liquid) 1,000 mg Q12 GTB Last administered on 05/29/16 08 :55; Admin Dose 1,000 MG; Start 05/04/16 at 09:00 Multivitamins (Thera-Plus) 5 ml DAILY GTB Last administered on 05/29/16 08:56; Admin Dose 5 ML; Start 05/04/16 at 09:00 Miscellaneous Information 1 ea NOTE XX ; Start 05/04/16 at 09:00 Glucose (Glutose) 15 gm Q15M PRN PO DECREASED GLUCOSE; Start 05/04/16 at 09:00 Glucose (Glutose) 22.5 gm Q15M PRN PO DECREASED GLUCOSE; Start 05/04/16 at 09: 00 Dextrose (D50w Syringe) 25 ml Q15M PRN IV DECREASED GLUCOSE; Start 05/04/16 at 09:00 Dextrose (D50w Syringe) 50 ml Q15M PRN IV DECREASED GLUCOSE; Start 05/04/16 at 09:00 Glucagon (Glucagen) 1 mg Q15M PRN IM DECREASED GLUCOSE; Start 05/04/16 at 09: 00 Glucose (Glutose) 15 gm Q15M PRN BUCCAL DECREASED GLUCOSE; Start 05/04/16 at 09:00 Acetaminophen (Tylenol Liquid) 650 mg Q6H PRN GTB PAIN LEVEL 1-3 OR FEVER Last administered on 05/20/16at 05:00; Admin Dose 650 MG; Start 05/04/16 at 18:30 Metronidazole (Flagyl) 500 mg Q8 GTB Last administered on 05/29/16 13:17; Admin Dose 500 MG; Start 05/05/16 at 14:00 Collagenase (Santyl) APPLY TO NECROTIC TISSUE DAILY TOP Last administered on 08:56; Admin Dose 1 APPLIC; Start 05/06/16 at 16:30 Collagenase (Santyl) APPLY TO NECROTIC AREA PRN PRN TOP SOILING Last administered on 05/21/16at 22:04; Admin Dose 3 APPLIC; Start 05/06/16 at 16:00 Aspirin (Aspirin) 81 mg DAILY GTB Last administered on 05/29/16 08:55; Admin Dose 81 MG; Start 05/10/16 at 09:00 Ascorbic Acid (Vitamin C) 500 mg DAILY GTB Last administered on 05/29/16 08:55 ; Admin Dose 500 MG; Start 05/10/16 at 11:00 Famotidine (Pepcid) 20 mg DAILY GTB Last administered on 05/29/16 08:56; Admin Dose 20 MG; Start 05/10/16 at 11:00 Acetaminophen/ Hydrocodone Bitart ([place] (5/325)) 1 tab Q6H PRN GTB MODERATE PAIN LEVEL 4-6; Start 05/10/16 at 13:30 Metoclopramide HCl (Reglan Liq) 10 mg Q6 GTB Last administered on 05/29/16 11: 32; Admin Dose 10 MG; Start 05/10/16 at 18:00 Hydralazine HCl (Apresoline) 25 mg Q8H GTB Last administered on 05/29/16 11:35 ; Admin Dose 25 MG; Start 05/14/16 at 20:00 Insulin Glargine (Lantus) 14 unit QPM SC Last administered on 05/28/16 20:05; Admin Dose 14 UNIT; Start 05/14/16 at 21:00 Citric Acid/ Sodium Citrate (Bicitra) 30 ml TID PO Last administered on 13:16; Admin Dose 30 ML; Start 05/15/16 at 21:00 Insulin Aspart NOVOLOG *MODERATE* ALGORITHM Q8 SC ; Start 05/20/16 at 14:00 Daptomycin 540 mg/ Sodium Chloride 100 ml @ 200 mls/hr Q24H IVPB Last administered on 05/29/16 13:18; Admin Dose 200 MLS/HR; Start 05/21/16 at 14:30 Dextrose/Sodium Chloride (D5-1/2ns) 1,000 ml @ 50 mls/hr Q20H IV Last administered on 05/29/16 11:32; Admin Dose 50 MLS/HR; Start 05/29/16 at 11:30; Stop 05/31/16 at 11:29 Assessment/Plan Chief Complaint/Hosp Course INDWELLINGS: Trach, PEG, Reynolds, ORCHID SUPERINTENDENT shunt. ANTIMICROBIALS: Daptomycin Flagyl PHYSICAL EXAMINATION: GENERAL: This is a chronically ill-appearing, middle-aged woman who is obtunded in no distress. HEENT: Head atraumatic, normocephalic. Sclerae anicteric. Buccal mucosa dry. NECK: Supple. Tracheostomy present. CHEST: Rise symmetrical. Breath sounds diminished at the bases. HEART: S1, S2. ABDOMEN: Soft, bowel tones present. EXTREMITIES: Without cyanosis. ASSESSMENT: 1. S/p sepsis with shock. 2. Clostridium difficile colitis. 3. Unstageable sacral decubitus, possible osteomyelitis with a history of multiple debridements. 4. History of methicillin-resistant Staphylococcus aureus infected ventriculoperitoneal shunt removal with new ORCHID SUPERINTENDENT shunt placement. 5. Seizure disorder. 6. Chronic encephalopathy. 7. Urinary tract infection===> MDRO. 8. A/CKD PLAN: Clinically unchanged, will repeat cx's and cxr given persistent leukocytosis, continue local wound care, abx, renal/pulmonary rec-s staff Problems: DUTCH STEELE NP May 29, 2016 14:28
--- NOTE | 2016-05-29 15:26 | RADRPT ---
PROCEDURE: XR Chest. CLINICAL INDICATION: Possible pneumonia. Chest pain TECHNIQUE: AP view of the chest was performed. COMPARISON: None. FINDINGS: Tracheostomy tube is present. Patchy hazy airspace opacity in the left lower lobe. Right lung fiel d is clear. The lung volumes are normal. The heart size is normal. The osseous structures are inta ct. MECHANICAL DESIGN ENGINE[employer]ODUCTS shunt is present. IMPRESSION: Patchy hazy airspace opacity in the left lower lobe. Findings are likely quality audit representative of 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 RPTAT: QQ .Edson Sidhu MD, MD Date Time Electronically viewed and signed by .Edson Sidhu MD, on 05/29/2016 15:25 .M/
--- NOTE | 2016-05-29 15:57 | CONS ---
Date/Time of Note Date/Time of Note DATE: 05/29/16 TIME: 15:56 Consult Date/Type/Reason Admit Date/Time May 04, 2016 at 05:51 Initial Consult Date Type of Consultation: pulm Ordering Provider: AMY HANKINS MD Subjective No events on MV Objective Vital Signs Date Time Temp Pulse Resp B/P Pulse Ox O2 Delivery O2 Flow Rate FiO2 05/29/16 15:44 96 15 100 30 05/29/16 12:01 98.5 127/79 Intake and Output 05/28/16 05/28/16 05/29/16 15:00 23:00 07:00 Intake Total 60 ml 1640 ml Output Total 800 ml Balance 60 ml 840 ml NECK: Trach site clean and intact. CARDIAC: S1, S2, no added sounds or murmurs. CHEST: Diminished air entry bilaterally. No rales or wheezes. ABDOMEN: Soft, nontender. No guarding or rebound. EXTREMITIES: No cyanosis, clubbing, edema. Results/Medications Result Diagram: 05/29/16 0538 05/29/16 0538 Results 24 hrs Laboratory Tests Test 05/28/16 19:55 05/28/16 23:03 05/29/16 05:10 05/29/16 05:38 Bedside Glucose 97 120 108 Anion Gap 17 H Basophils # 0.0 Basophils % 0.1 Blood Morphology Comment Blood Urea Nitrogen 45 H Calcium Level 7.9 L Carbon Dioxide Level 21 Chloride Level 105 Creatine Kinase < 20 L Creatinine 2.09 H Eosinophils # 0.2 Eosinophils % 1.5 Glucose Level 77 Hematocrit 29.2 L Hemoglobin 10.0 L Lymphocytes # 2.1 Lymphocytes % 14.0 L Mean Corpuscular Hemoglobin 31.0 Mean Corpuscular Hemoglobin Concent 34.1 Mean Corpuscular Volume 90.9 Mean Platelet Volume 6.9 L Monocytes # 1.1 H Monocytes % 7.5 Neutrophils # 11.7 H Neutrophils % 76.9 Nucleated Red Blood Cells # 0.0 Nucleated Red Blood Cells % 0.0 Platelet Count 550 H Potassium Level 4.3 Red Blood Count 3.22 L Red Cell Distribution Width 15.6 H Sodium Level 139 White Blood Count 15.2 H Test 05/29/16 13:15 Bedside Glucose 114 Medications Current Medications Morphine Sulfate (morphine) 2 mg Q4H PRN IV SEVERE PAIN LEVEL 7-10 Last administered on 05/07/16at 18:26; Admin Dose 2 MG; Start 05/04/16 at 07:30 Docusate Sodium (Colace) 100 mg Q12H PRN PO CONSTIPATION; Start 05/04/16 at 07 :30 Lorazepam (Ativan) 0.5 mg Q6H PRN IV ANXIETY Last administered on 05/06/16at 23 :58; Admin Dose 0.5 MG; Start 05/04/16 at 07:30 Hydralazine HCl (Apresoline) 10 mg Q6H PRN IV ELEVATED BLOOD PRESSURE; Start 05/04/16 at 07:30 Nitroglycerin (Nitroglycerin (Sl Tab) 0.4 Mg) 1 tab Q5M PRN SL ANGINA; Start 05/04/16 at 07:30 Acetaminophen (Tylenol Supp) 650 mg Q4 PRN [place] PAIN OR TEMP ABOVE 38C; Start at 07:30 Atorvastatin Calcium (Lipitor) 20 mg QHS GTB Last administered on 05/28/16 20: 02; Admin Dose 20 MG; Start 05/04/16 at 21:00 Bisacodyl (Dulcolax Supp) 10 mg Q24H PRN [place] CONSTIPATION; Start 05/04/16 at 07 :30 Levetiracetam (Keppra Liquid) 1,000 mg Q12 GTB Last administered on 05/29/16 08 :55; Admin Dose 1,000 MG; Start 05/04/16 at 09:00 Multivitamins (Thera-Plus) 5 ml DAILY GTB Last administered on 05/29/16 08:56; Admin Dose 5 ML; Start 05/04/16 at 09:00 Miscellaneous Information 1 ea NOTE XX ; Start 05/04/16 at 09:00 Glucose (Glutose) 15 gm Q15M PRN PO DECREASED GLUCOSE; Start 05/04/16 at 09:00 Glucose (Glutose) 22.5 gm Q15M PRN PO DECREASED GLUCOSE; Start 05/04/16 at 09: 00 Dextrose (D50w Syringe) 25 ml Q15M PRN IV DECREASED GLUCOSE; Start 05/04/16 at 09:00 Dextrose (D50w Syringe) 50 ml Q15M PRN IV DECREASED GLUCOSE; Start 05/04/16 at 09:00 Glucagon (Glucagen) 1 mg Q15M PRN IM DECREASED GLUCOSE; Start 05/04/16 at 09: 00 Glucose (Glutose) 15 gm Q15M PRN BUCCAL DECREASED GLUCOSE; Start 05/04/16 at 09:00 Acetaminophen (Tylenol Liquid) 650 mg Q6H PRN GTB PAIN LEVEL 1-3 OR FEVER Last administered on 05/20/16at 05:00; Admin Dose 650 MG; Start 05/04/16 at 18:30 Metronidazole (Flagyl) 500 mg Q8 GTB Last administered on 05/29/16 13:17; Admin Dose 500 MG; Start 05/05/16 at 14:00 Collagenase (Santyl) APPLY TO NECROTIC TISSUE DAILY TOP Last administered on 08:56; Admin Dose 1 APPLIC; Start 05/06/16 at 16:30 Collagenase (Santyl) APPLY TO NECROTIC AREA PRN PRN TOP SOILING Last administered on 05/21/16at 22:04; Admin Dose 3 APPLIC; Start 05/06/16 at 16:00 Aspirin (Aspirin) 81 mg DAILY GTB Last administered on 05/29/16 08:55; Admin Dose 81 MG; Start 05/10/16 at 09:00 Ascorbic Acid (Vitamin C) 500 mg DAILY GTB Last administered on 05/29/16 08:55 ; Admin Dose 500 MG; Start 05/10/16 at 11:00 Famotidine (Pepcid) 20 mg DAILY GTB Last administered on 05/29/16 08:56; Admin Dose 20 MG; Start 05/10/16 at 11:00 Acetaminophen/ Hydrocodone Bitart ([place] (5/325)) 1 tab Q6H PRN GTB MODERATE PAIN LEVEL 4-6; Start 05/10/16 at 13:30 Metoclopramide HCl (Reglan Liq) 10 mg Q6 GTB Last administered on 05/29/16 11: 32; Admin Dose 10 MG; Start 05/10/16 at 18:00 Hydralazine HCl (Apresoline) 25 mg Q8H GTB Last administered on 05/29/16 11:35 ; Admin Dose 25 MG; Start 05/14/16 at 20:00 Insulin Glargine (Lantus) 14 unit QPM SC Last administered on 05/28/16 20:05; Admin Dose 14 UNIT; Start 05/14/16 at 21:00 Citric Acid/ Sodium Citrate (Bicitra) 30 ml TID PO Last administered on 13:16; Admin Dose 30 ML; Start 05/15/16 at 21:00 Insulin Aspart NOVOLOG *MODERATE* ALGORITHM Q8 SC ; Start 05/20/16 at 14:00 Daptomycin 540 mg/ Sodium Chloride 100 ml @ 200 mls/hr Q24H IVPB Last administered on 05/29/16 13:18; Admin Dose 200 MLS/HR; Start 05/21/16 at 14:30 Dextrose/Sodium Chloride (D5-1/2ns) 1,000 ml @ 50 mls/hr Q20H IV Last administered on 05/29/16 11:32; Admin Dose 50 MLS/HR; Start 05/29/16 at 11:30; Stop 05/31/16 at 11:29 Voriconazole (Vfend) 200 mg BID PO ; Start 05/29/16 at 21:00 Assessment/Plan Additional Assessment/Plan IMPRESSION: 1. Chronic vent dependent respiratory failure. 2. Chronic encephalopathy. 3. Anemia of chronic disease. 4. Resolving sepsis. 5. Dysphagia with G-tube. RECS: 1. Continued antibiotics per ID. 2. Vent support. 3. Wound care. 4. DVT and GI prophylaxis. 5. Monitor Hb. MICHELLE NIEVES MD May 29, 2016 15:57
[2016-05-29] MEDS: VORICONAZOLE 200 MG TAB PO SCH (22:48)
[2016-05-29] MEDS: ATORVASTATIN 20 MG TAB GTB SCH (22:48)
[2016-05-29] MEDS: INSULIN GLARGINE [LANtus] 3 ML PEN SC SCH (22:50)
[2016-05-30] VITALS (27 sets, daily range): BP systolic 104–128; BP diastolic 56–78; PULSE 91–114; RESP 14–21
[2016-05-30] MEDS: METOCLOPRAMIDE (1 MG/ML) 10 ML CUP GTB SCH ×3 (05:55→17:04)
[2016-05-30] MEDS: INSULIN ASPART [NOVOLOG] 3 ML PEN SC SCH ×3 (05:55→22:00)
[2016-05-30] MEDS: metroNIDAZOLE 500 MG TAB GTB SCH ×3 (05:55→22:06)
[2016-05-30 06:28] LABS: CREATININE 1.94 mg/dl (0.44-1.00)
[2016-05-30] MEDS: ASPIRIN 81 MG TAB GTB SCH (08:25)
[2016-05-30] MEDS: FAMOTIDINE 20 MG TAB GTB SCH (08:25)
[2016-05-30] MEDS: LEVETIRACETAM (100 MG/ML) 5ML CUP GTB SCH ×2 (08:25→21:59)
[2016-05-30] MEDS: VORICONAZOLE 200 MG TAB PO SCH ×2 (08:25→22:05)
[2016-05-30] MEDS: MULTIVITAMINS 5 ML CUP GTB SCH (08:25)
[2016-05-30] MEDS: CITRIC ACID/NA CITRATE 30 ML CUP PO SCH ×3 (08:25→21:59)
[2016-05-30] MEDS: ASCORBIC ACID 500 MG TAB GTB SCH (08:25)
[2016-05-30] MEDS: DEXTROSE 5%-0.45% NACL 1,000 ML IV SCH (08:26)
[2016-05-30] MEDS: COLLAGENASE 30 GM TUBE TOP SCH (08:26)
--- NOTE | 2016-05-30 11:45 | CONS ---
Date/Time of Note Date/Time of Note DATE: 05/30/16 TIME: 11:43 Assessment/Plan Assessment/Plan Additional Assessment/Plan 1. Sepsis, likely secondary to urinary tract infection versus sacral decubitus. 2. Ventilator-dependent respiratory failure, status post trach. 3. ALEJANDRO due to severe prerenal azotemia 4. Diabetes mellitus. 5. History of cerebrovascular accident. 6. 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 7. Seizure disorder. 8. Chronic encephalopathy. Secondary to history of CVA 9. Hypernatremia 10. Hypokalemia Plan: electrolytes stable today on IVF D51/2NS will follow up Consultation Date/Type/Reason Admit Date/Time May 04, 2016 at 05:51 Type of Consultation: pulm Referring Provider: AMY HANKINS MD Exam/Review of Systems Vital Signs Vitals Vital Signs Date Time Temp Pulse Resp B/P Pulse Ox O2 Delivery O2 Flow Rate FiO2 05/30/16 11:09 102 20 100 30 05/30/16 04:00 98.5 128/68 Mechanical Ventilator Intake and Output 05/29/16 05/29/16 05/30/16 15:00 23:00 07:00 Intake Total 200 ml 920 ml 670 ml Output Total 25 ml 650 ml 1900 ml Balance 175 ml 270 ml -1230 ml Exam General: The patient is a phasic, on vent via trach, does not respond to any pain or verbal stimuli Lungs: Decreased breath sounds bilateral lower lung field, positive crackles Heart: Normal S1-S2, Regular rhythm and rate. Abdomen: Soft , nontender, nondistended , bowel sounds are present. PEG tube in place Extremities: Flaccid, + 2 edema no cyanosis Neurologic: No meaningful neurologic examination findings Skin: Stage IV sacral decubitus Results Result Diagram: 05/29/16 0538 05/30/16 0529 Results 24 hrs Laboratory Tests Test 05/29/16 13:15 05/29/16 21:38 05/30/16 05:29 05/30/16 05:52 Bedside Glucose 114 114 115 Blood Urea Nitrogen 45 H Creatinine 1.94 H Medications Medications Current Medications Morphine Sulfate (morphine) 2 mg Q4H PRN IV SEVERE PAIN LEVEL 7-10 Last administered on 05/07/16at 18:26; Admin Dose 2 MG; Start 05/04/16 at 07:30 Docusate Sodium (Colace) 100 mg Q12H PRN PO CONSTIPATION; Start 05/04/16 at 07 :30 Lorazepam (Ativan) 0.5 mg Q6H PRN IV ANXIETY Last administered on 05/06/16at 23 :58; Admin Dose 0.5 MG; Start 05/04/16 at 07:30 Hydralazine HCl (Apresoline) 10 mg Q6H PRN IV ELEVATED BLOOD PRESSURE; Start 05/04/16 at 07:30 Nitroglycerin (Nitroglycerin (Sl Tab) 0.4 Mg) 1 tab Q5M PRN SL ANGINA; Start 05/04/16 at 07:30 Acetaminophen (Tylenol Supp) 650 mg Q4 PRN [place] PAIN OR TEMP ABOVE 38C; Start at 07:30 Atorvastatin Calcium (Lipitor) 20 mg QHS GTB Last administered on 05/29/16 22: 48; Admin Dose 20 MG; Start 05/04/16 at 21:00 Bisacodyl (Dulcolax Supp) 10 mg Q24H PRN [place] CONSTIPATION; Start 05/04/16 at 07 :30 Levetiracetam (Keppra Liquid) 1,000 mg Q12 GTB Last administered on 05/30/16 08 :25; Admin Dose 1,000 MG; Start 05/04/16 at 09:00 Multivitamins (Thera-Plus) 5 ml DAILY GTB Last administered on 05/30/16 08:25; Admin Dose 5 ML; Start 05/04/16 at 09:00 Miscellaneous Information 1 ea NOTE XX ; Start 05/04/16 at 09:00 Glucose (Glutose) 15 gm Q15M PRN PO DECREASED GLUCOSE; Start 05/04/16 at 09:00 Glucose (Glutose) 22.5 gm Q15M PRN PO DECREASED GLUCOSE; Start 05/04/16 at 09: 00 Dextrose (D50w Syringe) 25 ml Q15M PRN IV DECREASED GLUCOSE; Start 05/04/16 at 09:00 Dextrose (D50w Syringe) 50 ml Q15M PRN IV DECREASED GLUCOSE; Start 05/04/16 at 09:00 Glucagon (Glucagen) 1 mg Q15M PRN IM DECREASED GLUCOSE; Start 05/04/16 at 09: 00 Glucose (Glutose) 15 gm Q15M PRN BUCCAL DECREASED GLUCOSE; Start 05/04/16 at 09:00 Acetaminophen (Tylenol Liquid) 650 mg Q6H PRN GTB PAIN LEVEL 1-3 OR FEVER Last administered on 05/20/16at 05:00; Admin Dose 650 MG; Start 05/04/16 at 18:30 Metronidazole (Flagyl) 500 mg Q8 GTB Last administered on 05/30/16 05:55; Admin Dose 500 MG; Start 05/05/16 at 14:00 Collagenase (Santyl) APPLY TO NECROTIC TISSUE DAILY TOP Last administered on 08:26; Admin Dose 1 APPLIC; Start 05/06/16 at 16:30 Collagenase (Santyl) APPLY TO NECROTIC AREA PRN PRN TOP SOILING Last administered on 05/21/16at 22:04; Admin Dose 3 APPLIC; Start 05/06/16 at 16:00 Aspirin (Aspirin) 81 mg DAILY GTB Last administered on 05/30/16 08:25; Admin Dose 81 MG; Start 05/10/16 at 09:00 Ascorbic Acid (Vitamin C) 500 mg DAILY GTB Last administered on 05/30/16 08:25 ; Admin Dose 500 MG; Start 05/10/16 at 11:00 Famotidine (Pepcid) 20 mg DAILY GTB Last administered on 05/30/16 08:25; Admin Dose 20 MG; Start 05/10/16 at 11:00 Acetaminophen/ Hydrocodone Bitart ([place] (5/325)) 1 tab Q6H PRN GTB MODERATE PAIN LEVEL 4-6; Start 05/10/16 at 13:30 Metoclopramide HCl (Reglan Liq) 10 mg Q6 GTB Last administered on 05/30/16 05: 55; Admin Dose 10 MG; Start 05/10/16 at 18:00 Hydralazine HCl (Apresoline) 25 mg Q8H GTB Last administered on 05/30/16 05:56 ; Admin Dose 25 MG; Start 05/14/16 at 20:00 Insulin Glargine (Lantus) 14 unit QPM SC Last administered on 05/29/16 22:50; Admin Dose 14 UNIT; Start 05/14/16 at 21:00 Citric Acid/ Sodium Citrate (Bicitra) 30 ml TID PO Last administered on 08:25; Admin Dose 30 ML; Start 05/15/16 at 21:00 Insulin Aspart NOVOLOG *MODERATE* ALGORITHM Q8 SC ; Start 05/20/16 at 14:00 Daptomycin 540 mg/ Sodium Chloride 100 ml @ 200 mls/hr Q24H IVPB Last administered on 05/29/16 13:18; Admin Dose 200 MLS/HR; Start 05/21/16 at 14:30 Dextrose/Sodium Chloride (D5-1/2ns) 1,000 ml @ 50 mls/hr Q20H IV Last administered on 05/30/16 08:26; Admin Dose 50 MLS/HR; Start 05/29/16 at 11:30; Stop 05/31/16 at 11:29 Voriconazole (Vfend) 200 mg BID PO Last administered on 05/30/16 08:25; Admin Dose 200 MG; Start 05/29/16 at 21:00 TAMMY NUÑEZ MD May 30, 2016 11:45
--- NOTE | 2016-05-30 12:13 | PN ---
Date/Time of Note Date/Time of Note DATE: 05/30/16 TIME: 12:08 Assessment/Plan VTE Prophylaxis VTE Prophylaxis Intervention: SCD's Lines/Catheters IV Catheter Type (from Nrs): Peripheral IV Urinary Cath still in place: Yes Reason Cath still needed: other (indicate) Assessment/Plan Chief Complaint/Hosp Course ASSESSMENT AND PLAN: 1. Sepsis, likely secondary to urinary tract infection versus sacral decubitus. The patient has been started on daptomycin and Colistimethate as per ID recommendations . Follow up infectious disease recommendations. 2. Ventilator-dependent respiratory failure, status post trach. Pulmonology has been consulted. 3. Acute renal insufficiency, restart IVF, likely secondary to sepsis versus dehydration. nephrology consulted. 4. Diabetes mellitus. Continue sliding scale and Lantus. 5. History of cerebrovascular accident. No acute issues at this time. Patient is bed bound and a phasic 6. 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 7. Seizure disorder. Continue Keppra 8. Chronic encephalopathy. Secondary to history of CVA 9. Urinary tract infection===> MDRO, urine culture KLEB PNEUMONIAE CARBAPENEMASE, follow up in infectious disease recommendations 10. Essential Hypertension, continue to monitor restart blood pressure medications cautiously 11. C. difficile toxin, repeat stool negative for C. difficile , follow-up ID recommendations to discontinue Flagyl 12. Hypokalemia, repleted 13. Hypernatremia, resolving 14. Unstageable sacral decubitus, possible osteomyelitis with a history of multiple debridements. Wound care consulted We will continue monitor patient closely for recommendation management treatment as per clinical course Condition guarded Continue to monitor in telemetry floor Plan to discharge to group home facility when bed is available Plan to transfer to [facility] when accepted Problems: Subjective 24 Hr Interval Summary Free Text/Dictation No acute changes Tolerating PEG tube feeding Patient is awake although No meaningful neurologic examination findings Exam/Review of Systems Vital Signs Vitals Vital Signs Date Time Temp Pulse Resp B/P Pulse Ox O2 Delivery O2 Flow Rate FiO2 05/30/16 11:09 102 20 100 30 05/30/16 04:00 98.5 128/68 Mechanical Ventilator Intake and Output 05/29/16 05/29/16 05/30/16 15:00 23:00 07:00 Intake Total 200 ml 920 ml 670 ml Output Total 25 ml 650 ml 1900 ml Balance 175 ml 270 ml -1230 ml Exam General: The patient is a phasic, on vent via trach, does not respond to any pain or verbal stimuli HEENT: Atraumatic, normocephalic. The pupils are equal Neck: Supple , trach in place Chest: Normal Lungs: Decreased breath sounds bilateral lower lung field, positive crackles Heart: Normal S1-S2, Regular rhythm and rate. Abdomen: Soft , nontender, nondistended , bowel sounds are present. PEG tube in place Extremities: Flaccid, + 2 edema no cyanosis Neurologic: No meaningful neurologic examination findings Skin: Stage IV sacral decubitus Results Result Diagram: 05/29/16 0538 05/30/16 05 Results 24 hrs Laboratory Tests Test 05/29/16 13:15 05/29/16 21:38 05/30/16 05:29 05/30/16 05:52 Bedside Glucose 114 114 115 Blood Urea Nitrogen 45 H Creatinine 1.94 H Medications Medications Current Medications Morphine Sulfate (morphine) 2 mg Q4H PRN IV SEVERE PAIN LEVEL 7-10 Last administered on 05/07/16at 18:26; Admin Dose 2 MG; Start 05/04/16 at 07:30 Docusate Sodium (Colace) 100 mg Q12H PRN PO CONSTIPATION; Start 05/04/16 at 07 :30 Lorazepam (Ativan) 0.5 mg Q6H PRN IV ANXIETY Last administered on 05/06/16at 23 :58; Admin Dose 0.5 MG; Start 05/04/16 at 07:30 Hydralazine HCl (Apresoline) 10 mg Q6H PRN IV ELEVATED BLOOD PRESSURE; Start 05/04/16 at 07:30 Nitroglycerin (Nitroglycerin (Sl Tab) 0.4 Mg) 1 tab Q5M PRN SL ANGINA; Start 05/04/16 at 07:30 Acetaminophen (Tylenol Supp) 650 mg Q4 PRN IN PAIN OR TEMP ABOVE 38C; Start at 07:30 Atorvastatin Calcium (Lipitor) 20 mg QHS GTB Last administered on 05/29/16t 22: 48; Admin Dose 20 MG; Start 05/04/16 at 21:00 Bisacodyl (Dulcolax Supp) 10 mg Q24H PRN IN CONSTIPATION; Start 05/04/16 at 07 :30 Levetiracetam (Keppra Liquid) 1,000 mg Q12 GTB Last administered on 05/30/16 08 :25; Admin Dose 1,000 MG; Start 05/04/16 at 09:00 Multivitamins (Thera-Plus) 5 ml DAILY GTB Last administered on 05/30/16 08:25; Admin Dose 5 ML; Start 05/04/16 at 09:00 Miscellaneous Information 1 ea NOTE XX ; Start 05/04/16 at 09:00 Glucose (Glutose) 15 gm Q15M PRN PO DECREASED GLUCOSE; Start 05/04/16 at 09:00 Glucose (Glutose) 22.5 gm Q15M PRN PO DECREASED GLUCOSE; Start 05/04/16 at 09: 00 Dextrose (D50w Syringe) 25 ml Q15M PRN IV DECREASED GLUCOSE; Start 05/04/16 at 09:00 Dextrose (D50w Syringe) 50 ml Q15M PRN IV DECREASED GLUCOSE; Start 05/04/16 at 09:00 Glucagon (Glucagen) 1 mg Q15M PRN IM DECREASED GLUCOSE; Start 05/04/16 at 09: 00 Glucose (Glutose) 15 gm Q15M PRN BUCCAL DECREASED GLUCOSE; Start 05/04/16 at 09:00 Acetaminophen (Tylenol Liquid) 650 mg Q6H PRN GTB PAIN LEVEL 1-3 OR FEVER Last administered on 05/20/16at 05:00; Admin Dose 650 MG; Start 05/04/16 at 18:30 Metronidazole (Flagyl) 500 mg Q8 GTB Last administered on 05/30/16 05:55; Admin Dose 500 MG; Start 05/05/16 at 14:00 Collagenase (Santyl) APPLY TO NECROTIC TISSUE DAILY TOP Last administered on 08:26; Admin Dose 1 APPLIC; Start 05/06/16 at 16:30 Collagenase (Santyl) APPLY TO NECROTIC AREA PRN PRN TOP SOILING Last administered on 05/21/16at 22:04; Admin Dose 3 APPLIC; Start 05/06/16 at 16:00 Aspirin (Aspirin) 81 mg DAILY GTB Last administered on 05/30/16 08:25; Admin Dose 81 MG; Start 05/10/16 at 09:00 Ascorbic Acid (Vitamin C) 500 mg DAILY GTB Last administered on 05/30/16 08:25 ; Admin Dose 500 MG; Start 05/10/16 at 11:00 Famotidine (Pepcid) 20 mg DAILY GTB Last administered on 05/30/16 08:25; Admin Dose 20 MG; Start 05/10/16 at 11:00 Acetaminophen/ Hydrocodone Bitart ([place] (5/325)) 1 tab Q6H PRN GTB MODERATE PAIN LEVEL 4-6; Start 05/10/16 at 13:30 Metoclopramide HCl (Reglan Liq) 10 mg Q6 GTB Last administered on 05/30/16 05: 55; Admin Dose 10 MG; Start 05/10/16 at 18:00 Hydralazine HCl (Apresoline) 25 mg Q8H GTB Last administered on 05/30/16 05:56 ; Admin Dose 25 MG; Start 05/14/16 at 20:00 Insulin Glargine (Lantus) 14 unit QPM SC Last administered on 05/29/16 22:50; Admin Dose 14 UNIT; Start 05/14/16 at 21:00 Citric Acid/ Sodium Citrate (Bicitra) 30 ml TID PO Last administered on 08:25; Admin Dose 30 ML; Start 05/15/16 at 21:00 Insulin Aspart NOVOLOG *MODERATE* ALGORITHM Q8 SC ; Start 05/20/16 at 14:00 Daptomycin 540 mg/ Sodium Chloride 100 ml @ 200 mls/hr Q24H IVPB Last administered on 05/29/16 13:18; Admin Dose 200 MLS/HR; Start 05/21/16 at 14:30 Dextrose/Sodium Chloride (D5-1/2ns) 1,000 ml @ 50 mls/hr Q20H IV Last administered on 05/30/16 08:26; Admin Dose 50 MLS/HR; Start 05/29/16 at 11:30; Stop 05/31/16 at 11:29 Voriconazole (Vfend) 200 mg BID PO Last administered on 05/30/16 08:25; Admin Dose 200 MG; Start 05/29/16 at 21:00 AMY HANKINS MD May 30, 2016 12:13
[2016-05-30] MEDS ORDERED: MEROPENEM 500 MG in SOD CHLORIDE 0.9% 100 ML IVPB SCH (13:00)
[2016-05-30] MEDS: ZYVOX 600 MG TAB PO SCH ×2 (14:34→21:59)
[2016-05-30] MEDS: MEROPENEM 1 GM in SOD CHLORIDE 0.9% 100 ML IVPB SCH ×2 (14:35→23:56)
--- NOTE | 2016-05-30 17:30 | CONS ---
Date/Time of Note Date/Time of Note DATE: 05/30/16 TIME: 17:29 Consult Date/Type/Reason Admit Date/Time May 04, 2016 at 05:51 Type of Consultation: pulm Ordering Provider: AMY HANKINS MD Subjective No events. Objective Vital Signs Date Time Temp Pulse Resp B/P Pulse Ox O2 Delivery O2 Flow Rate FiO2 05/30/16 16:11 108 05/30/16 15:53 98.8 18 115/73 98 05/30/16 15:32 30 05/30/16 04:00 Mechanical Ventilator Intake and Output 05/29/16 05/29/16 05/30/16 15:00 23:00 07:00 Intake Total 200 ml 920 ml 670 ml Output Total 25 ml 650 ml 1900 ml Balance 175 ml 270 ml -1230 ml NECK: Trach site clean and intact. CARDIAC: S1, S2, no added sounds or murmurs. CHEST: Diminished air entry bilaterally. No rales or wheezes. ABDOMEN: Soft, nontender. No guarding or rebound. EXTREMITIES: No cyanosis, clubbing, edema. Results/Medications Result Diagram: 05/29/16 0538 05/30/16 0529 Results 24 hrs Laboratory Tests Test 05/29/16 21:38 05/30/16 05:29 05/30/16 05:52 05/30/16 15:20 Bedside Glucose 114 115 125 Blood Urea Nitrogen 45 H Creatinine 1.94 H Medications Current Medications Morphine Sulfate (morphine) 2 mg Q4H PRN IV SEVERE PAIN LEVEL 7-10 Last administered on 05/07/16at 18:26; Admin Dose 2 MG; Start 05/04/16 at 07:30 Docusate Sodium (Colace) 100 mg Q12H PRN PO CONSTIPATION; Start 05/04/16 at 07 :30 Lorazepam (Ativan) 0.5 mg Q6H PRN IV ANXIETY Last administered on 05/06/16at 23 :58; Admin Dose 0.5 MG; Start 05/04/16 at 07:30 Hydralazine HCl (Apresoline) 10 mg Q6H PRN IV ELEVATED BLOOD PRESSURE; Start 05/04/16 at 07:30 Nitroglycerin (Nitroglycerin (Sl Tab) 0.4 Mg) 1 tab Q5M PRN SL ANGINA; Start 05/04/16 at 07:30 Acetaminophen (Tylenol Supp) 650 mg Q4 PRN [place] PAIN OR TEMP ABOVE 38C; Start at 07:30 Atorvastatin Calcium (Lipitor) 20 mg QHS GTB Last administered on 05/29/16 22: 48; Admin Dose 20 MG; Start 05/04/16 at 21:00 Bisacodyl (Dulcolax Supp) 10 mg Q24H PRN [place] CONSTIPATION; Start 05/04/16 at 07 :30 Levetiracetam (Keppra Liquid) 1,000 mg Q12 GTB Last administered on 05/30/16 08 :25; Admin Dose 1,000 MG; Start 05/04/16 at 09:00 Multivitamins (Thera-Plus) 5 ml DAILY GTB Last administered on 05/30/16 08:25; Admin Dose 5 ML; Start 05/04/16 at 09:00 Miscellaneous Information 1 ea NOTE XX ; Start 05/04/16 at 09:00 Glucose (Glutose) 15 gm Q15M PRN PO DECREASED GLUCOSE; Start 05/04/16 at 09:00 Glucose (Glutose) 22.5 gm Q15M PRN PO DECREASED GLUCOSE; Start 05/04/16 at 09: 00 Dextrose (D50w Syringe) 25 ml Q15M PRN IV DECREASED GLUCOSE; Start 05/04/16 at 09:00 Dextrose (D50w Syringe) 50 ml Q15M PRN IV DECREASED GLUCOSE; Start 05/04/16 at 09:00 Glucagon (Glucagen) 1 mg Q15M PRN IM DECREASED GLUCOSE; Start 05/04/16 at 09: 00 Glucose (Glutose) 15 gm Q15M PRN BUCCAL DECREASED GLUCOSE; Start 05/04/16 at 09:00 Acetaminophen (Tylenol Liquid) 650 mg Q6H PRN GTB PAIN LEVEL 1-3 OR FEVER Last administered on 05/20/16at 05:00; Admin Dose 650 MG; Start 05/04/16 at 18:30 Metronidazole (Flagyl) 500 mg Q8 GTB Last administered on 05/30/16 14:34; Admin Dose 500 MG; Start 05/05/16 at 14:00 Collagenase (Santyl) APPLY TO NECROTIC TISSUE DAILY TOP Last administered on 08:26; Admin Dose 1 APPLIC; Start 05/06/16 at 16:30 Collagenase (Santyl) APPLY TO NECROTIC AREA PRN PRN TOP SOILING Last administered on 05/21/16at 22:04; Admin Dose 3 APPLIC; Start 05/06/16 at 16:00 Aspirin (Aspirin) 81 mg DAILY GTB Last administered on 05/30/16 08:25; Admin Dose 81 MG; Start 05/10/16 at 09:00 Ascorbic Acid (Vitamin C) 500 mg DAILY GTB Last administered on 05/30/16 08:25 ; Admin Dose 500 MG; Start 05/10/16 at 11:00 Famotidine (Pepcid) 20 mg DAILY GTB Last administered on 05/30/16 08:25; Admin Dose 20 MG; Start 05/10/16 at 11:00 Acetaminophen/ Hydrocodone Bitart ([place] (5/325)) 1 tab Q6H PRN GTB MODERATE PAIN LEVEL 4-6; Start 05/10/16 at 13:30 Metoclopramide HCl (Reglan Liq) 10 mg Q6 GTB Last administered on 05/30/16 17: 04; Admin Dose 10 MG; Start 05/10/16 at 18:00 Hydralazine HCl (Apresoline) 25 mg Q8H GTB Last administered on 05/30/16 12:37 ; Admin Dose 25 MG; Start 05/14/16 at 20:00 Insulin Glargine (Lantus) 14 unit QPM SC Last administered on 05/29/16 22:50; Admin Dose 14 UNIT; Start 05/14/16 at 21:00 Citric Acid/ Sodium Citrate (Bicitra) 30 ml TID PO Last administered on 12:37; Admin Dose 30 ML; Start 05/15/16 at 21:00 Insulin Aspart NOVOLOG *MODERATE* ALGORITHM Q8 SC ; Start 05/20/16 at 14:00 Dextrose/Sodium Chloride (D5-1/2ns) 1,000 ml @ 50 mls/hr Q20H IV Last administered on 05/30/16 08:26; Admin Dose 50 MLS/HR; Start 05/29/16 at 11:30; Stop 05/31/16 at 11:29 Voriconazole 200 mg 200 mg BID PO Last administered on 05/30/16 08:25; Admin Dose 200 MG; Start 05/29/16 at 21:00 Meropenem/Sodium Chloride (Merrem/NS) 100 ml @ 200 mls/hr Q12 IVPB Last administered on 05/30/16 14:35; Admin Dose 200 MLS/HR; Start 05/30/16 at 14:30 Linezolid (Zyvox) 600 mg BID PO Last administered on 05/30/16 14:34; Admin Dose 600 MG; Start 05/30/16 at 13:00 Assessment/Plan Additional Assessment/Plan IMPRESSION: 1. Chronic vent dependent respiratory failure. 2. Chronic encephalopathy. 3. Anemia of chronic disease. 4. Resolving sepsis. 5. Dysphagia with G-tube. RECS: 1. Continued antibiotics per ID. 2. Vent support. 3. Wound care. 4. DVT and GI prophylaxis. 5. Monitor Hb. MICHELLE NIEVES MD May 30, 2016 17:30
--- NOTE | 2016-05-30 17:35 | PN ---
DATE: SUBJECTIVE: No acute changes. The patient is lying comfortably in bed. No fevers. 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 INDWELLINGS: Trach, PEG, Reynolds, rectal tube. PHYSICAL EXAMINATION: GENERAL: Chronically ill-appearing, middle-aged woman who is lying comfortably in bed. Th e patient is noncommunicative. She withdraws to pain. She is in no distress. HEENT: Head atraumatic, normocephalic. Sclerae anicteric. Buccal mucosa dry. NECK: Supple. Tracheostomy present. CHEST: Rise symmetrical. Breath sounds diminished to bases. HEART: S1, S2. ABDOMEN: Soft, bowel tones present. EXTREMITIES: Without cyanosis. ASSESSMENT: 1. Systemic inflammatory response syndrome with persistent leukocytosis secondary to healthcare-ass ociated pneumonia. 2. Healthcare-associated pneumonia. 3. Status post severe sepsis with shock. 4. Status post urinary tract infection. 5. Unstageable sacral decubitus. 6. Chronic encephalopathy. 7. 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 8. Seizure disorder. 9. Acute on chronic kidney disease. PLAN: The patient remains clinically unchanged. We will start her on Merrem, Zyvox. She is also o n voriconazole for persistent fungemia. We will follow on her cultures, labs, and repeat chest x-ra y in a.m. Monitor for seizures. Continue anti-seizure medications and follow recommendations of sp ecialists. Dictated By: DUTCH STEELE FINANCIAL AIDS OFFICER for PAT [facility]MONTE/RAMIRO Conf#: [id number] DID#: [id number]
[2016-05-30] MEDS: ATORVASTATIN 20 MG TAB GTB SCH (21:59)
[2016-05-30] MEDS: INSULIN GLARGINE [LANtus] 3 ML PEN SC SCH (22:09)
[2016-05-31] VITALS (24 sets, daily range): BP systolic 100–129; BP diastolic 60–78; PULSE 91–107; RESP 14–20
[2016-05-31] MEDS: METOCLOPRAMIDE (1 MG/ML) 10 ML CUP GTB SCH ×5 (00:12→23:52)
[2016-05-31] MEDS: DEXTROSE 5%-0.45% NACL 1,000 ML IV SCH ×2 (03:30→09:17)
[2016-05-31] MEDS: metroNIDAZOLE 500 MG TAB GTB SCH ×3 (05:58→21:50)
[2016-05-31] MEDS: INSULIN ASPART [NOVOLOG] 3 ML PEN SC SCH ×3 (06:00→21:05)
[2016-05-31] MEDS: VORICONAZOLE 200 MG TAB PO SCH ×2 (09:24→21:03)
[2016-05-31] MEDS: LEVETIRACETAM (100 MG/ML) 5ML CUP GTB SCH ×2 (09:24→21:04)
[2016-05-31] MEDS: ASCORBIC ACID 500 MG TAB GTB SCH (09:24)
[2016-05-31] MEDS: ZYVOX 600 MG TAB PO SCH ×2 (09:24→21:03)
[2016-05-31] MEDS: FAMOTIDINE 20 MG TAB GTB SCH (09:24)
[2016-05-31] MEDS: CITRIC ACID/NA CITRATE 30 ML CUP PO SCH ×3 (09:24→21:04)
[2016-05-31] MEDS: MULTIVITAMINS 5 ML CUP GTB SCH (09:24)
[2016-05-31] MEDS: ASPIRIN 81 MG TAB GTB SCH (09:24)
[2016-05-31] MEDS: COLLAGENASE 30 GM TUBE TOP SCH (09:26)
[2016-05-31] MEDS: MEROPENEM 1 GM in SOD CHLORIDE 0.9% 100 ML IVPB SCH ×2 (09:29→21:04)
--- NOTE | 2016-05-31 12:23 | CONS ---
Date/Time of Note Date/Time of Note DATE: 05/31/16 TIME: 12:21 Consult Date/Type/Reason Admit Date/Time May 04, 2016 at 05:51 Type of Consultation: ID Ordering Provider: AMY HANKINS MD Subjective no events, no fevers, noncommunicative, nad Objective Vital Signs Date Time Temp Pulse Resp B/P Pulse Ox O2 Delivery O2 Flow Rate FiO2 05/31/16 11:39 98.6 105 18 120/78 100 05/31/16 09:15 30 05/30/16 20:00 Mechanical Ventilator Intake and Output 05/30/16 05/30/16 05/31/16 15:00 23:00 07:00 Intake Total 920 ml 300 ml Output Total 850 ml 700 ml Balance 70 ml -400 ml Results/Medications Result Diagram: 05/29/16 0538 05/30/16 0529 Results 24 hrs Laboratory Tests Test 05/30/16 15:20 05/30/16 22:02 05/31/16 06:36 Bedside Glucose 125 125 106 Medications Current Medications Morphine Sulfate (morphine) 2 mg Q4H PRN IV SEVERE PAIN LEVEL 7-10 Last administered on 05/07/16at 18:26; Admin Dose 2 MG; Start 05/04/16 at 07:30 Docusate Sodium (Colace) 100 mg Q12H PRN PO CONSTIPATION; Start 05/04/16 at 07 :30 Lorazepam (Ativan) 0.5 mg Q6H PRN IV ANXIETY Last administered on 05/06/16at 23 :58; Admin Dose 0.5 MG; Start 05/04/16 at 07:30 Hydralazine HCl (Apresoline) 10 mg Q6H PRN IV ELEVATED BLOOD PRESSURE; Start 05/04/16 at 07:30 Nitroglycerin (Nitroglycerin (Sl Tab) 0.4 Mg) 1 tab Q5M PRN SL ANGINA; Start 05/04/16 at 07:30 Acetaminophen (Tylenol Supp) 650 mg Q4 PRN [place] PAIN OR TEMP ABOVE 38C; Start at 07:30 Atorvastatin Calcium (Lipitor) 20 mg QHS GTB Last administered on 05/30/16t 21: 59; Admin Dose 20 MG; Start 05/04/16 at 21:00 Bisacodyl (Dulcolax Supp) 10 mg Q24H PRN [place] CONSTIPATION; Start 05/04/16 at 07 :30 Levetiracetam (Keppra Liquid) 1,000 mg Q12 GTB Last administered on 05/31/16 09 :24; Admin Dose 1,000 MG; Start 05/04/16 at 09:00 Multivitamins (Thera-Plus) 5 ml DAILY GTB Last administered on 05/31/16 09:24; Admin Dose 5 ML; Start 05/04/16 at 09:00 Miscellaneous Information 1 ea NOTE XX ; Start 05/04/16 at 09:00 Glucose (Glutose) 15 gm Q15M PRN PO DECREASED GLUCOSE; Start 05/04/16 at 09:00 Glucose (Glutose) 22.5 gm Q15M PRN PO DECREASED GLUCOSE; Start 05/04/16 at 09: 00 Dextrose (D50w Syringe) 25 ml Q15M PRN IV DECREASED GLUCOSE; Start 05/04/16 at 09:00 Dextrose (D50w Syringe) 50 ml Q15M PRN IV DECREASED GLUCOSE; Start 05/04/16 at 09:00 Glucagon (Glucagen) 1 mg Q15M PRN IM DECREASED GLUCOSE; Start 05/04/16 at 09: 00 Glucose (Glutose) 15 gm Q15M PRN BUCCAL DECREASED GLUCOSE; Start 05/04/16 at 09:00 Acetaminophen (Tylenol Liquid) 650 mg Q6H PRN GTB PAIN LEVEL 1-3 OR FEVER Last administered on 05/20/16at 05:00; Admin Dose 650 MG; Start 05/04/16 at 18:30 Metronidazole (Flagyl) 500 mg Q8 GTB Last administered on 05/31/16 05:58; Admin Dose 500 MG; Start 05/05/16 at 14:00 Collagenase (Santyl) APPLY TO NECROTIC TISSUE DAILY TOP Last administered on 09:26; Admin Dose 1 APPLIC; Start 05/06/16 at 16:30 Collagenase (Santyl) APPLY TO NECROTIC AREA PRN PRN TOP SOILING Last administered on 05/21/16at 22:04; Admin Dose 3 APPLIC; Start 05/06/16 at 16:00 Aspirin (Aspirin) 81 mg DAILY GTB Last administered on 05/31/16 09:24; Admin Dose 81 MG; Start 12/19/16 at 09:00 Ascorbic Acid (Vitamin C) 500 mg DAILY GTB Last administered on 05/31/16 09:24 ; Admin Dose 500 MG; Start 05/10/16 at 11:00 Famotidine (Pepcid) 20 mg DAILY GTB Last administered on 05/31/16 09:24; Admin Dose 20 MG; Start 05/10/16 at 11:00 Acetaminophen/ Hydrocodone Bitart ([place] (5/325)) 1 tab Q6H PRN GTB MODERATE PAIN LEVEL 4-6; Start 05/10/16 at 13:30 Metoclopramide HCl (Reglan Liq) 10 mg Q6 GTB Last administered on 05/31/16 05: 58; Admin Dose 10 MG; Start 05/10/16 at 18:00 Hydralazine HCl (Apresoline) 25 mg Q8H GTB Last administered on 05/31/16 05:59 ; Admin Dose 25 MG; Start 05/14/16 at 20:00 Insulin Glargine (Lantus) 14 unit QPM SC Last administered on 05/30/16 22:09; Admin Dose 14 UNIT; Start 05/14/16 at 21:00 Citric Acid/ Sodium Citrate (Bicitra) 30 ml TID PO Last administered on 09:24; Admin Dose 30 ML; Start 05/15/16 at 21:00 Insulin Aspart (Novolog Insulin Pen) NOVOLOG *MODERATE* ALGORITHM Q8 SC ; Start 05/20/16 at 14:00 Voriconazole 200 mg 200 mg BID PO Last administered on 05/31/16 09:24; Admin Dose 200 MG; Start 05/29/16 at 21:00 Meropenem/Sodium Chloride (Merrem/NS) 100 ml @ 200 mls/hr Q12 IVPB Last administered on 05/31/16 09:29; Admin Dose 200 MLS/HR; Start 05/30/16 at 14:30 Linezolid (Zyvox) 600 mg BID PO Last administered on 05/31/16 09:24; Admin Dose 600 MG; Start 05/30/16 at 13:00 Assessment/Plan Chief Complaint/Hosp Course DIAGNOSTICS: Chest x-ray 05/29 revealed patchy, hazy airspace opacity in the left lower lobe, 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 INDWELLINGS: Trach, PEG, Reynolds, rectal tube. Abx: Merrem, Zyvox, Vfend, Flagyl PHYSICAL EXAMINATION: GENERAL: Chronically ill-appearing, middle-aged woman who is lying comfortably in bed. The patient is noncommunicative. She withdraws to pain. She is in no distress. HEENT: Head atraumatic, normocephalic. Sclerae anicteric. Buccal mucosa dry. NECK: Supple. Tracheostomy present. CHEST: Rise symmetrical. Breath sounds diminished to bases. HEART: S1, S2. ABDOMEN: Soft, bowel tones present. EXTREMITIES: Without cyanosis. ASSESSMENT: 1. Systemic inflammatory response syndrome with persistent leukocytosis. 2. Healthcare-associated pneumonia. 3. Status post severe sepsis with shock. 4. Status post urinary tract infection. 5. Unstageable sacral decubitus. 6. Chronic encephalopathy. 7. 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 8. Seizure disorder. 9. Acute on chronic kidney disease. PLAN: The patient remains clinically unchanged. Continue present care, abx, vent per pulmonary DW staff Problems: DUTCH STEELE NP May 31, 2016 12:23
--- NOTE | 2016-05-31 16:04 | CONS ---
Date/Time of Note Date/Time of Note DATE: 05/31/16 TIME: 16:03 Assessment/Plan Assessment/Plan Chief Complaint/Hosp Course IMPRESSION: 1. Patient has fhdgs-db-pejwyet kidney disease. 2. Acute renal failure drug induced atn 3. Underlying acute tubular necrosis due to sepsis/meds. 4. Severe sepsis.c diff 5. hypernatremia.better 6. Free water deficit.BETTER 7. RES FAILURE 8. Lactic acidosis.BETTER 9. vdrf. 10. Anemia. 11. History of tracheostomy. 12 METABOLIC ACIDOSIS better PLAN [facility] avoid nephrotoxic drugs per id Problems: Consultation Date/Type/Reason Admit Date/Time May 04, 2016 at 05:51 Type of Consultation: renal Referring Provider: AMY HANKINS MD 24 HR Interval Summary Subjective hx not possible: pt non-verbal Exam/Review of Systems Vital Signs Vitals Vital Signs Date Time Temp Pulse Resp B/P Pulse Ox O2 Delivery O2 Flow Rate FiO2 05/31/16 15:49 105 14 100 30 05/31/16 11:39 98.6 120/78 05/30/16 20:00 Mechanical Ventilator Intake and Output 05/30/16 05/30/16 05/31/16 15:00 23:00 07:00 Intake Total 920 ml 300 ml Output Total 850 ml 700 ml Balance 70 ml -400 ml Exam Respiratory: clear to auscultation Cardiovascular: regular rate and rhythm Gastrointestinal: soft Extremities: No edema Results Result Diagram: 05/29/16 0538 05/30/16 0529 Results 24 hrs Laboratory Tests Test 05/30/16 22:02 05/31/16 06:36 05/31/16 14:47 Bedside Glucose 125 106 112 Medications Medications Current Medications Morphine Sulfate (morphine) 2 mg Q4H PRN IV SEVERE PAIN LEVEL 7-10 Last administered on 05/07/16at 18:26; Admin Dose 2 MG; Start 05/04/16 at 07:30 Docusate Sodium (Colace) 100 mg Q12H PRN PO CONSTIPATION; Start 05/04/16 at 07 :30 Lorazepam (Ativan) 0.5 mg Q6H PRN IV ANXIETY Last administered on 05/06/16at 23 :58; Admin Dose 0.5 MG; Start 05/04/16 at 07:30 Hydralazine HCl (Apresoline) 10 mg Q6H PRN IV ELEVATED BLOOD PRESSURE; Start 05/04/16 at 07:30 Nitroglycerin (Nitroglycerin (Sl Tab) 0.4 Mg) 1 tab Q5M PRN SL ANGINA; Start 05/04/16 at 07:30 Acetaminophen (Tylenol Supp) 650 mg Q4 PRN [place] PAIN OR TEMP ABOVE 38C; Start at 07:30 Atorvastatin Calcium (Lipitor) 20 mg QHS GTB Last administered on 05/30/16 21: 59; Admin Dose 20 MG; Start 05/04/16 at 21:00 Bisacodyl (Dulcolax Supp) 10 mg Q24H PRN [place] CONSTIPATION; Start 05/04/16 at 07 :30 Levetiracetam (Keppra Liquid) 1,000 mg Q12 GTB Last administered on 05/31/16 09 :24; Admin Dose 1,000 MG; Start 05/04/16 at 09:00 Multivitamins (Thera-Plus) 5 ml DAILY GTB Last administered on 05/31/16 09:24; Admin Dose 5 ML; Start 05/04/16 at 09:00 Miscellaneous Information 1 ea NOTE XX ; Start 05/04/16 at 09:00 Glucose (Glutose) 15 gm Q15M PRN PO DECREASED GLUCOSE; Start 05/04/16 at 09:00 Glucose (Glutose) 22.5 gm Q15M PRN PO DECREASED GLUCOSE; Start 05/04/16 at 09: 00 Dextrose (D50w Syringe) 25 ml Q15M PRN IV DECREASED GLUCOSE; Start 05/04/16 at 09:00 Dextrose (D50w Syringe) 50 ml Q15M PRN IV DECREASED GLUCOSE; Start 05/04/16 at 09:00 Glucagon (Glucagen) 1 mg Q15M PRN IM DECREASED GLUCOSE; Start 05/04/16 at 09: 00 Glucose (Glutose) 15 gm Q15M PRN BUCCAL DECREASED GLUCOSE; Start 05/04/16 at 09:00 Acetaminophen (Tylenol Liquid) 650 mg Q6H PRN GTB PAIN LEVEL 1-3 OR FEVER Last administered on 05/20/16at 05:00; Admin Dose 650 MG; Start 05/04/16 at 18:30 Metronidazole (Flagyl) 500 mg Q8 GTB Last administered on 05/31/16 14:48; Admin Dose 500 MG; Start 05/05/16 at 14:00 Collagenase (Santyl) APPLY TO NECROTIC TISSUE DAILY TOP Last administered on 09:26; Admin Dose 1 APPLIC; Start 05/06/16 at 16:30 Collagenase (Santyl) APPLY TO NECROTIC AREA PRN PRN TOP SOILING Last administered on 05/21/16at 22:04; Admin Dose 3 APPLIC; Start 05/06/16 at 16:00 Aspirin (Aspirin) 81 mg DAILY GTB Last administered on 05/31/16 09:24; Admin Dose 81 MG; Start 05/10/16 at 09:00 Ascorbic Acid (Vitamin C) 500 mg DAILY GTB Last administered on 05/31/16 09:24 ; Admin Dose 500 MG; Start 05/10/16 at 11:00 Famotidine (Pepcid) 20 mg DAILY GTB Last administered on 05/31/16 09:24; Admin Dose 20 MG; Start 05/10/16 at 11:00 Acetaminophen/ Hydrocodone Bitart ([place] (5/325)) 1 tab Q6H PRN GTB MODERATE PAIN LEVEL 4-6; Start 05/10/16 at 13:30 Metoclopramide HCl (Reglan Liq) 10 mg Q6 GTB Last administered on 05/31/16 12: 59; Admin Dose 10 MG; Start 05/10/16 at 18:00 Hydralazine HCl (Apresoline) 25 mg Q8H GTB Last administered on 05/31/16 12:59 ; Admin Dose 25 MG; Start 05/14/16 at 20:00 Insulin Glargine (Lantus) 14 unit QPM SC Last administered on 05/30/16 22:09; Admin Dose 14 UNIT; Start 05/14/16 at 21:00 Citric Acid/ Sodium Citrate (Bicitra) 30 ml TID PO Last administered on 12:59; Admin Dose 30 ML; Start 05/15/16 at 21:00 Insulin Aspart (Novolog Insulin Pen) NOVOLOG *MODERATE* ALGORITHM Q8 SC ; Start 05/20/16 at 14:00 Voriconazole 200 mg 200 mg BID PO Last administered on 05/31/16 09:24; Admin Dose 200 MG; Start 1/7/17 at 21:00 Meropenem/Sodium Chloride (Merrem/NS) 100 ml @ 200 mls/hr Q12 IVPB Last administered on 05/31/16 09:29; Admin Dose 200 MLS/HR; Start 05/30/16 at 14:30 Linezolid (Zyvox) 600 mg BID PO Last administered on 05/31/16 09:24; Admin Dose 600 MG; Start 05/30/16 at 13:00 AMBER LIEBERMAN MD May 31, 2016 16:04
[2016-05-31] MEDS: ATORVASTATIN 20 MG TAB GTB SCH (21:03)
[2016-05-31] MEDS: INSULIN GLARGINE [LANtus] 3 ML PEN SC SCH (21:56)
[2016-06-01] VITALS (24 sets, daily range): BP systolic 121–132; BP diastolic 60–72; PULSE 89–104; RESP 14–23
--- NOTE | 2016-06-01 03:31 | DS ---
DATE OF ADMISSION: 05/04/2016 DATE OF DISCHARGE: 05/31/2016 ADDENDUM CONSULTANTS: 1. Dr. El Victoria 2. Dr. Ranjeet Omalley 3. Dr. Pederson. DIAGNOSES: 1. Sepsis. 2. Acute on chronic renal insufficiency. 3. Acute on chronic respiratory failure. 4. Ventilator dependent respiratory failure. 5. Diabetes mellitus. 6. History of cerebrovascular accident. 7. Dyslipidemia. 8. Essential hypertension. 9. Clostridium difficile toxin. 10. Hyperkalemia 11. Dysphagia. 12. Status post urinary tract infection. 13. Healthcare-associated pneumonia. 14. Chronic encephalopathy. 15. Unstageable sacral decubitus. 16. 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 17. Seizure disorder. MEDICATIONS: 1. Tylenol. 2. DuoNeb. 3. Artificial tear. 4. Vitamin C 500 mg. 5. Aspirin 81 mg. 6. Lipitor 20 mg. 7. Dulcolax suppository 10 mg. 8. Bicitra 30 mL. 9. Santyl. 10. Colace. 11. Pepcid. 12 Hydralazine 25 mg. 13 [place] 5/325. 14. Keppra 1000 mg 15. Zyvox 600 mg b.i.d. x4 weeks. 16. Lorazepam. 17. Meropenem q. 12 x4 weeks. 18. Reglan. 19. Flagyl 500 mg. 20. Morphine. 21. Multivitamin. 22. Nitroglycerin. 23. Vfend 200 mg b.i.d. 24. Clonidine p.r.n. 25. Cranberry liquid. 26. Ferrous sulfate 330 mg. 27. Zofran 28. Metoprolol 12.5 mg q. 12 hours. DIET: PEG tube feeding, DIABETISOURCE. INSTRUCTION: Wound care. ALLERGIES: NO KNOWN DRUG ALLERGIES. HOSPITAL COURSE: Please see my discharge summary which was done on 05/11/2016. This is an unfortun ate 46-year-old female with past medical history of previous hemorrhage with CVA, neurological compr omise, encephalopathy, chronic respiratory failure, vent dependent, status post tracheostomy, previo us hydrocephalus, status post RIPENING ROOM OPERATOR shunt placement secondary to bacteremia, status post PEG tube place ment, diabetes mellitus type 2, hypertension, seizure disorder, CHF, diastolic dysfunction, history of left-sided abdominal wall abscess, status post insertion of peritoneal portion of tunneled RIPENING ROOM OPERATOR kasia nt, previous hospitalization secondary to sepsis, sacral decubitus which is unstageable who resides at custodial facility, although the patient was noted having worsening of her respiratory dist ress. As per her 's request, the patient was transferred to [facility] where WBC was 14.5, hemoglobin 9.4. Urinalysis was positive for urinary tract infection. The pa tient's urine culture showed Deyanira glabrata. Stool was positive for C. diff. Wound culture posit leti for Klebsiella pneumoniae, multidrug resistant organism, Proteus mirabilis. Infectious disease doctor, pulmonology, and palliative care physician was consulted. The patient was placed on vancomy rosy and Zosyn and was transitioned to vancomycin, , meropenem, Flagyl, and Vfend. She was cont inued on aggressive medical management, was initially admitted to ICU secondary to sepsis and the celina malagon's need for pressors. The pressors were essentially weaned off, and the patient was transferre d to telemetry floor where she was continued on aggressive medical management. There were several m eetings with the patient's regarding the code status. The patient's decided to freeman ge the code status to DNR. The patient was found to have urine culture positive for Klebsiella pneu moniae, Carbapenemase, a multidrug resistant organism resistant to all, although the patient has bee n placed on Zyvox and meropenem as per infectious disease doctor. These findings have been discusse d with the patient's . Also the patient's wound showed Klebsiella pneumoniae Carbapenemase, multidrug resistant organism, Proteus mirabilis, vancomycin-resistant Enterococcus, isolated from bl ood only. As stated above, infectious disease doctor was consulted. The patient's repeat C. diff w as found to be negative on 05/14/2016. Unfortunately, due to insurance purposes and the patient hav ing multidrug resistant urine culture and gram culture, the patient was not able to be placed in any custodial facility. Fortunately, the patient has been reviewed by [facility], and at this time, the patient has been accepted to that facility for continuation of IV antibiotics and br eathing treatment and trach care. There have been several meetings with the patient's and trever prescott regarding the patient's care and prognosis which is poor secondary to the patient's state an d conditions such as having multi resistant bacteria and the patient being in and out of the hospita l secondary to sepsis and the patient having unstageable decubitus ulcer. At this time, the patient is in fair condition to be transferred to [facility] which the same care will be initiat ed. Her vitals are as follow: Temperature 98.6, pulse 103, respirations 18, blood pressure 120/70, oxygen saturation 100% on FIO2 of 30%. LABORATORY DATA: WBC is 15.3, hemoglobin 10, hematocrit 29.2, platelets 550. Sodium 139, potassium 4.3, chloride 105, bicarbonate 21, BUN 45, creatinine 2.09, glucose 77, calcium 7.9. Total amount of time spent for evaluation of patient and discharge workup was 1 hour. Dictated By: AMY HANKINS MD PN/NTS Conf#: [id number] DID#: [id number]
[2016-06-01] MEDS: METOCLOPRAMIDE (1 MG/ML) 10 ML CUP GTB SCH ×3 (05:42→18:48)
[2016-06-01] MEDS: metroNIDAZOLE 500 MG TAB GTB SCH ×3 (05:42→21:32)
[2016-06-01] MEDS: INSULIN ASPART [NOVOLOG] 3 ML PEN SC SCH ×3 (05:44→22:00)
[2016-06-01 07:19] LABS: BASOPHILS % 0.1 % (0.0-2.0); EOSINOPHILS # 0.1 10^3/ul (0.0-0.5); HEMATOCRIT 27.2 % (37.0-47.0); HEMOGLOBIN 9.3 g/dl (12.0-16.0); LYMPHOCYTES # 1.6 10^3/ul (0.8-2.9); LYMPHOCYTES % 11.2 % (15.0-51.0); MEAN CORPUSCULAR HEMOGLOBIN 31.1 pg (29.0-33.0); MEAN CORPUSCULAR HGB CONC 34.1 g/dl (32.0-37.0); MEAN CORPUSCULAR VOLUME 91.3 fl (82.0-101.0); MEAN PLATELET VOLUME 7.3 fl (7.4-10.4); MONOCYTE # 0.9 10^3/ul (0.3-0.9); MONOCYTES % 6.6 % (0.0-11.0); NEUTROPHIL # 11.2 10^3/ul (1.6-7.5); NEUTROPHILS % 81.1 % (39.0-77.0); PLATELET COUNT 505 10^3/UL (140-440); RED BLOOD COUNT 2.98 10^6/ul (4.20-5.40); RED CELL DISTRIBUTION WIDTH 15.6 % (11.5-14.5); UNCORRECTED WBC 13.9 10^3/ul (4.8-10.8); WHITE BLOOD COUNT 13.9 10^3/ul (4.8-10.8)
[2016-06-01 07:20] LABS: CONDITION 1; LH ANALYZER COMMENTS 1
[2016-06-01 08:00] LABS: POTASSIUM 3.6 mmol/L (3.5-5.1)
[2016-06-01 08:02] LABS: CREATININE 1.85 mg/dl (0.44-1.00)
[2016-06-01 08:03] LABS: CALCIUM 7.7 mg/dl (8.4-10.2)
[2016-06-01] MEDS: MEROPENEM 1 GM in SOD CHLORIDE 0.9% 100 ML IVPB SCH ×2 (09:52→21:32)
[2016-06-01] MEDS: ASCORBIC ACID 500 MG TAB GTB SCH (09:58)
[2016-06-01] MEDS: ASPIRIN 81 MG TAB GTB SCH (09:59)
[2016-06-01] MEDS: MULTIVITAMINS 5 ML CUP GTB SCH (09:59)
[2016-06-01] MEDS: FAMOTIDINE 20 MG TAB GTB SCH (09:59)
[2016-06-01] MEDS: VORICONAZOLE 200 MG TAB PO SCH ×2 (09:59→21:32)
[2016-06-01] MEDS: LEVETIRACETAM (100 MG/ML) 5ML CUP GTB SCH ×2 (09:59→21:30)
[2016-06-01] MEDS: ZYVOX 600 MG TAB PO SCH ×2 (09:59→21:32)
[2016-06-01] MEDS: CITRIC ACID/NA CITRATE 30 ML CUP PO SCH ×3 (09:59→21:32)
[2016-06-01] MEDS: COLLAGENASE 30 GM TUBE TOP SCH (10:00)
--- NOTE | 2016-06-01 12:28 | PN ---
Date/Time of Note Date/Time of Note DATE: 06/01/16 TIME: 12:27 Assessment/Plan VTE Prophylaxis VTE Prophylaxis Intervention: SCD's Lines/Catheters IV Catheter Type (from Nrs): Peripheral IV Urinary Cath still in place: Yes Reason Cath still needed: other (indicate) Assessment/Plan Chief Complaint/Hosp Course ASSESSMENT AND PLAN: 1. Sepsis, likely secondary to urinary tract infection versus sacral decubitus. The patient has been started on daptomycin and Colistimethate as per ID recommendations . Follow up infectious disease recommendations. 2. Ventilator-dependent respiratory failure, status post trach. Pulmonology has been consulted. 3. Acute renal insufficiency, restart IVF, likely secondary to sepsis versus dehydration. nephrology consulted. 4. Diabetes mellitus. Continue sliding scale and Lantus. 5. History of cerebrovascular accident. No acute issues at this time. Patient is bed bound and a phasic 6. 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 7. Seizure disorder. Continue Keppra 8. Chronic encephalopathy. Secondary to history of CVA 9. Urinary tract infection===> MDRO, urine culture KLEB PNEUMONIAE CARBAPENEMASE, follow up in infectious disease recommendations 10. Essential Hypertension, continue to monitor restart blood pressure medications cautiously 11. C. difficile toxin, repeat stool negative for C. difficile , follow-up ID recommendations to discontinue Flagyl 12. Hypokalemia, repleted 13. Hypernatremia, resolving 14. Unstageable sacral decubitus, possible osteomyelitis with a history of multiple debridements. Wound care consulted We will continue monitor patient closely for recommendation management treatment as per clinical course Condition guarded Continue to monitor in telemetry floor Plan to transfer to [facility] when accepted Problems: Subjective 24 Hr Interval Summary Free Text/Dictation No acute changes Tolerating PEG tube feeding She is awake and alert Exam/Review of Systems Vital Signs Vitals Vital Signs Date Time Temp Pulse Resp B/P Pulse Ox O2 Delivery O2 Flow Rate FiO2 06/01/16 12:10 98.7 93 18 125/66 100 06/01/16 11:15 30 05/31/16 20:00 Mechanical Ventilator Intake and Output 05/31/16 05/31/16 06/01/16 15:00 23:00 07:00 Intake Total 1020 ml 670 ml Output Total 1700 ml 1000 ml Balance -680 ml -330 ml Exam General: The patient is a phasic, on vent via trach, does not respond to any pain or verbal stimuli HEENT: Atraumatic, normocephalic. The pupils are equal Neck: Supple , trach in place Chest: Normal Lungs: Decreased breath sounds bilateral lower lung field, positive crackles Heart: Normal S1-S2, Regular rhythm and rate. Abdomen: Soft , nontender, nondistended , bowel sounds are present. PEG tube in place Extremities: Flaccid, + 2 edema no cyanosis Neurologic: No meaningful neurologic examination findings Skin: Stage IV sacral decubitus Results Result Diagram: 06/01/1640 06/01/1640 Results 24 hrs Laboratory Tests Test 05/31/16 14:47 05/31/16 20:57 06/01/16 05:40 06/01/16 05:43 Bedside Glucose 112 100 115 Anion Gap 18 H Basophils # 0.0 Basophils % 0.1 Blood Morphology Comment Blood Urea Nitrogen 40 H Calcium Level 7.7 L Carbon Dioxide Level 22 Chloride Level 107 Creatinine 1.85 H Eosinophils # 0.1 Eosinophils % 1.0 Glucose Level 95 Hematocrit 27.2 L Hemoglobin 9.3 L Lymphocytes # 1.6 Lymphocytes % 11.2 L Mean Corpuscular Hemoglobin 31.1 Mean Corpuscular Hemoglobin Concent 34.1 Mean Corpuscular Volume 91.3 Mean Platelet Volume 7.3 L Monocytes # 0.9 Monocytes % 6.6 Neutrophils # 11.2 H Neutrophils % 81.1 H Nucleated Red Blood Cells # 0.0 Nucleated Red Blood Cells % 0.0 Platelet Count 505 H Potassium Level 3.6 Red Blood Count 2.98 L Red Cell Distribution Width 15.6 H Sodium Level 143 White Blood Count 13.9 H Medications Medications Current Medications Morphine Sulfate (morphine) 2 mg Q4H PRN IV SEVERE PAIN LEVEL 7-10 Last administered on 05/07/16at 18:26; Admin Dose 2 MG; Start 05/04/16 at 07:30 Docusate Sodium (Colace) 100 mg Q12H PRN PO CONSTIPATION; Start 05/04/16 at 07 :30 Lorazepam (Ativan) 0.5 mg Q6H PRN IV ANXIETY Last administered on 05/06/16at 23 :58; Admin Dose 0.5 MG; Start 05/04/16 at 07:30 Hydralazine HCl (Apresoline) 10 mg Q6H PRN IV ELEVATED BLOOD PRESSURE; Start 05/04/16 at 07:30 Nitroglycerin (Nitroglycerin (Sl Tab) 0.4 Mg) 1 tab Q5M PRN SL ANGINA; Start 05/04/16 at 07:30 Acetaminophen (Tylenol Supp) 650 mg Q4 PRN [place] PAIN OR TEMP ABOVE 38C; Start at 07:30 Atorvastatin Calcium (Lipitor) 20 mg QHS GTB Last administered on 05/31/16 21: 03; Admin Dose 20 MG; Start 05/04/16 at 21:00 Bisacodyl (Dulcolax Supp) 10 mg Q24H PRN [place] CONSTIPATION; Start 05/04/16 at 07 :30 Levetiracetam (Keppra Liquid) 1,000 mg Q12 GTB Last administered on 06/01/16 09:59; Admin Dose 1,000 MG; Start 05/04/16 at 09:00 Multivitamins (Thera-Plus) 5 ml DAILY GTB Last administered on 06/01/16 09:59 ; Admin Dose 5 ML; Start 05/04/16 at 09:00 Miscellaneous Information 1 ea NOTE XX ; Start 05/04/16 at 09:00 Glucose (Glutose) 15 gm Q15M PRN PO DECREASED GLUCOSE; Start 05/04/16 at 09:00 Glucose (Glutose) 22.5 gm Q15M PRN PO DECREASED GLUCOSE; Start 05/04/16 at 09: 00 Dextrose (D50w Syringe) 25 ml Q15M PRN IV DECREASED GLUCOSE; Start 05/04/16 at 09:00 Dextrose (D50w Syringe) 50 ml Q15M PRN IV DECREASED GLUCOSE; Start 05/04/16 at 09:00 Glucagon (Glucagen) 1 mg Q15M PRN IM DECREASED GLUCOSE; Start 05/04/16 at 09: 00 Glucose (Glutose) 15 gm Q15M PRN BUCCAL DECREASED GLUCOSE; Start 05/04/16 at 09:00 Acetaminophen (Tylenol Liquid) 650 mg Q6H PRN GTB PAIN LEVEL 1-3 OR FEVER Last administered on 05/20/16at 05:00; Admin Dose 650 MG; Start 05/04/16 at 18:30 Metronidazole (Flagyl) 500 mg Q8 GTB Last administered on 06/01/16 05:42; Admin Dose 500 MG; Start 05/05/16 at 14:00 Collagenase (Santyl) APPLY TO NECROTIC TISSUE DAILY TOP Last administered on 10:00; Admin Dose 1 APPLIC; Start 05/06/16 at 16:30 Collagenase (Santyl) APPLY TO NECROTIC AREA PRN PRN TOP SOILING Last administered on 05/21/16at 22:04; Admin Dose 3 APPLIC; Start 05/06/16 at 16:00 Aspirin (Aspirin) 81 mg DAILY GTB Last administered on 06/01/16 09:59; Admin Dose 81 MG; Start 05/10/16 at 09:00 Ascorbic Acid (Vitamin C) 500 mg DAILY GTB Last administered on 06/01/16 09:58 ; Admin Dose 500 MG; Start 05/10/16 at 11:00 Famotidine (Pepcid) 20 mg DAILY GTB Last administered on 06/01/16 09:59; Admin Dose 20 MG; Start 05/10/16 at 11:00 Acetaminophen/ Hydrocodone Bitart ([place] (5/325)) 1 tab Q6H PRN GTB MODERATE PAIN LEVEL 4-6; Start 05/10/16 at 13:30 Metoclopramide HCl (Reglan Liq) 10 mg Q6 GTB Last administered on 06/01/16 05: 42; Admin Dose 10 MG; Start 05/10/16 at 18:00 Hydralazine HCl (Apresoline) 25 mg Q8H GTB Last administered on 06/01/16 04:48 ; Admin Dose 25 MG; Start 05/14/16 at 20:00 Insulin Glargine (Lantus) 14 unit QPM SC Last administered on 05/31/16 21:56; Admin Dose 14 UNIT; Start 05/14/16 at 21:00 Citric Acid/ Sodium Citrate (Bicitra) 30 ml TID PO Last administered on 09:59; Admin Dose 30 ML; Start 05/15/16 at 21:00 Insulin Aspart (Novolog Insulin Pen) NOVOLOG *MODERATE* ALGORITHM Q8 SC ; Start 05/20/16 at 14:00 Voriconazole 200 mg 200 mg BID PO Last administered on 06/01/16 09:59; Admin Dose 200 MG; Start 05/29/16 at 21:00 Meropenem/Sodium Chloride (Merrem/NS) 100 ml @ 200 mls/hr Q12 IVPB Last administered on 06/01/16 09:52; Admin Dose 200 MLS/HR; Start 05/30/16 at 14:30 Linezolid (Zyvox) 600 mg BID PO Last administered on 06/01/16 09:59; Admin Dose 600 MG; Start 05/30/16 at 13:00 AMY HANKINS MD Jun 01, 2016 12:28
--- NOTE | 2016-06-01 14:18 | PN ---
DATE: 06/01/2016 SUBJECTIVE: Chart reviewed. No significant events noted. The patient is currently on 30% FIO2, on ventilator, saturating 100% and does not appear in acute distress. PHYSICAL EXAMINATION: VITAL SIGNS: Blood pressure 125/66, pulse 93, respiration 18, temperature 98.7. HEENT: Pupils are equal and reactive to light. NECK: Supple, no JVD noted, no cervical adenopathy noted, no carotid bruits heard. LUNGS: Fair breath sounds bilaterally. CARDIOVASCULAR: S1, S2 normal. ABDOMEN: Soft, nontender. Positive bowel sounds. EXTREMITIES: No clubbing, cyanosis, or edema noted. NEUROLOGIC: Encephalopathic. LABORATORY DATA: WBC 13.9, hemoglobin 9.3, hematocrit 27.2, platelets 505. Sodium 143, potassium 3 .6, chloride 107, CO2 22, BUN 40, creatinine 1.85, glucose 95. IMPRESSION: 1. Ventilator-dependent respiratory failure, hypoxemic. 2. Status post septic shock. 3. History of cerebrovascular accident. 4. Anemia. 5. Encephalopathy. RECOMMENDATIONS: 1. The patient will be transferred to [facility] when accepted. 2. Continue vent support. 3. Antibiotics per Infectious Disease. 4. Discharge planning in process. Dictated By: MELLISA CARMEN MD, MA/RAMIRO Conf#: [id number] DID#: [id number]
--- NOTE | 2016-06-01 14:25 | CONS ---
Date/Time of Note Date/Time of Note DATE: 06/01/16 TIME: 14:23 Consult Date/Type/Reason Admit Date/Time May 04, 2016 at 05:51 Type of Consultation: ID Ordering Provider: AMY HANKINS MD Subjective all noted, no acute events, no fevers, nad Objective Vital Signs Date Time Temp Pulse Resp B/P Pulse Ox O2 Delivery O2 Flow Rate FiO2 06/01/16 13:00 96 14 100 30 06/01/16 12:10 98.7 125/66 05/31/16 20:00 Mechanical Ventilator Intake and Output 05/31/16 05/31/16 06/01/16 15:00 23:00 07:00 Intake Total 1020 ml 670 ml Output Total 1700 ml 1000 ml Balance -680 ml -330 ml Results/Medications Result Diagram: 06/01/16 0540 06/01/16 0540 Results 24 hrs Laboratory Tests Test 05/31/16 14:47 05/31/16 20:57 06/01/16 05:40 06/01/16 05:43 Bedside Glucose 112 100 115 Anion Gap 18 H Basophils # 0.0 Basophils % 0.1 Blood Morphology Comment Blood Urea Nitrogen 40 H Calcium Level 7.7 L Carbon Dioxide Level 22 Chloride Level 107 Creatinine 1.85 H Eosinophils # 0.1 Eosinophils % 1.0 Glucose Level 95 Hematocrit 27.2 L Hemoglobin 9.3 L Lymphocytes # 1.6 Lymphocytes % 11.2 L Mean Corpuscular Hemoglobin 31.1 Mean Corpuscular Hemoglobin Concent 34.1 Mean Corpuscular Volume 91.3 Mean Platelet Volume 7.3 L Monocytes # 0.9 Monocytes % 6.6 Neutrophils # 11.2 H Neutrophils % 81.1 H Nucleated Red Blood Cells # 0.0 Nucleated Red Blood Cells % 0.0 Platelet Count 505 H Potassium Level 3.6 Red Blood Count 2.98 L Red Cell Distribution Width 15.6 H Sodium Level 143 White Blood Count 13.9 H Medications Current Medications Morphine Sulfate (morphine) 2 mg Q4H PRN IV SEVERE PAIN LEVEL 7-10 Last administered on 05/07/16at 18:26; Admin Dose 2 MG; Start 05/04/16 at 07:30 Docusate Sodium (Colace) 100 mg Q12H PRN PO CONSTIPATION; Start 05/04/16 at 07 :30 Lorazepam (Ativan) 0.5 mg Q6H PRN IV ANXIETY Last administered on 05/06/16at 23 :58; Admin Dose 0.5 MG; Start 05/04/16 at 07:30 Hydralazine HCl (Apresoline) 10 mg Q6H PRN IV ELEVATED BLOOD PRESSURE; Start 05/04/16 at 07:30 Nitroglycerin (Nitroglycerin (Sl Tab) 0.4 Mg) 1 tab Q5M PRN SL ANGINA; Start 05/04/16 at 07:30 Acetaminophen (Tylenol Supp) 650 mg Q4 PRN [place] PAIN OR TEMP ABOVE 38C; Start at 07:30 Atorvastatin Calcium (Lipitor) 20 mg QHS GTB Last administered on 05/31/16 21: 03; Admin Dose 20 MG; Start 05/04/16 at 21:00 Bisacodyl (Dulcolax Supp) 10 mg Q24H PRN [place] CONSTIPATION; Start 05/04/16 at 07 :30 Levetiracetam (Keppra Liquid) 1,000 mg Q12 GTB Last administered on 06/01/16 09:59; Admin Dose 1,000 MG; Start 05/04/16 at 09:00 Multivitamins (Thera-Plus) 5 ml DAILY GTB Last administered on 06/01/16 09:59 ; Admin Dose 5 ML; Start 05/04/16 at 09:00 Miscellaneous Information 1 ea NOTE XX ; Start 05/04/16 at 09:00 Glucose (Glutose) 15 gm Q15M PRN PO DECREASED GLUCOSE; Start 05/04/16 at 09:00 Glucose (Glutose) 22.5 gm Q15M PRN PO DECREASED GLUCOSE; Start 05/04/16 at 09: 00 Dextrose (D50w Syringe) 25 ml Q15M PRN IV DECREASED GLUCOSE; Start 05/04/16 at 09:00 Dextrose (D50w Syringe) 50 ml Q15M PRN IV DECREASED GLUCOSE; Start 05/04/16 at 09:00 Glucagon (Glucagen) 1 mg Q15M PRN IM DECREASED GLUCOSE; Start 05/04/16 at 09: 00 Glucose (Glutose) 15 gm Q15M PRN BUCCAL DECREASED GLUCOSE; Start 05/04/16 at 09:00 Acetaminophen (Tylenol Liquid) 650 mg Q6H PRN GTB PAIN LEVEL 1-3 OR FEVER Last administered on 05/20/16at 05:00; Admin Dose 650 MG; Start 05/04/16 at 18:30 Metronidazole (Flagyl) 500 mg Q8 GTB Last administered on 06/01/16 13:06; Admin Dose 500 MG; Start 05/05/16 at 14:00 Collagenase (Santyl) APPLY TO NECROTIC TISSUE DAILY TOP Last administered on 10:00; Admin Dose 1 APPLIC; Start 05/06/16 at 16:30 Collagenase (Santyl) APPLY TO NECROTIC AREA PRN PRN TOP SOILING Last administered on 05/21/16at 22:04; Admin Dose 3 APPLIC; Start 05/06/16 at 16:00 Aspirin (Aspirin) 81 mg DAILY GTB Last administered on 06/01/16 09:59; Admin Dose 81 MG; Start 05/10/16 at 09:00 Ascorbic Acid (Vitamin C) 500 mg DAILY GTB Last administered on 06/01/16 09:58 ; Admin Dose 500 MG; Start 05/10/16 at 11:00 Famotidine (Pepcid) 20 mg DAILY GTB Last administered on 06/01/16 09:59; Admin Dose 20 MG; Start 05/10/16 at 11:00 Acetaminophen/ Hydrocodone Bitart ([place] (5/325)) 1 tab Q6H PRN GTB MODERATE PAIN LEVEL 4-6; Start 05/10/16 at 13:30 Metoclopramide HCl (Reglan Liq) 10 mg Q6 GTB Last administered on 06/01/16 13: 06; Admin Dose 10 MG; Start 05/10/16 at 18:00 Hydralazine HCl (Apresoline) 25 mg Q8H GTB Last administered on 06/01/16 13:06 ; Admin Dose 25 MG; Start 05/14/16 at 20:00 Insulin Glargine (Lantus) 14 unit QPM SC Last administered on 05/31/16 21:56; Admin Dose 14 UNIT; Start 05/14/16 at 21:00 Citric Acid/ Sodium Citrate (Bicitra) 30 ml TID PO Last administered on 13:12; Admin Dose 30 ML; Start 05/15/16 at 21:00 Insulin Aspart (Novolog Insulin Pen) NOVOLOG *MODERATE* ALGORITHM Q8 SC ; Start 05/20/16 at 14:00 Voriconazole 200 mg 200 mg BID PO Last administered on 06/01/16 09:59; Admin Dose 200 MG; Start 05/29/16 at 21:00 Meropenem/Sodium Chloride (Merrem/NS) 100 ml @ 200 mls/hr Q12 IVPB Last administered on 06/01/16 09:52; Admin Dose 200 MLS/HR; Start 05/30/16 at 14:30 Linezolid (Zyvox) 600 mg BID PO Last administered on 06/01/16 09:59; Admin Dose 600 MG; Start 05/30/16 at 13:00 Assessment/Plan Chief Complaint/Hosp Course DIAGNOSTICS: Chest x-ray 05/29 revealed patchy, hazy airspace opacity in the left lower lobe, likely international account representative of 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 INDWELLINGS: Trach, PEG, Reynolds, rectal tube. Abx: Merrem, Zyvox, Vfend, Flagyl PHYSICAL EXAMINATION: GENERAL: Chronically ill-appearing, middle-aged woman who is lying comfortably in bed. The patient is noncommunicative. She withdraws to pain. She is in no distress. HEENT: Head atraumatic, normocephalic. Sclerae anicteric. Buccal mucosa dry. NECK: Supple. Tracheostomy present. CHEST: Rise symmetrical. Breath sounds diminished to bases. HEART: S1, S2. ABDOMEN: Soft, bowel tones present. EXTREMITIES: Without cyanosis. ASSESSMENT: 1. Systemic inflammatory response syndrome with persistent leukocytosis. 2. Healthcare-associated pneumonia. 3. Status post severe sepsis with shock. 4. Status post urinary tract infection. 5. Unstageable sacral decubitus. 6. Chronic encephalopathy. 7. 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 8. Seizure disorder. 9. Acute on chronic kidney disease. PLAN: The patient remains unchanged. Continue local care, abx, vent per pulmonary DW staff Problems: DUTCH STEELE NP Jun 01, 2016 14:24
--- NOTE | 2016-06-01 17:26 | CONS ---
Date/Time of Note Date/Time of Note DATE: 06/01/16 TIME: 17:25 Assessment/Plan Assessment/Plan Chief Complaint/Hosp Course IMPRESSION: 1. Patient has [id number] kidney disease. 2. Acute renal failure drug induced atn 3. Underlying acute tubular necrosis due to sepsis/meds. 4. Severe sepsis.c diff 5. hypernatremia.better 6. Free water deficit.BETTER 7. RES FAILURE 8. Lactic acidosis.BETTER 9. vdrf. 10. Anemia. 11. History of tracheostomy. 12 METABOLIC ACIDOSIS better PLAN labs seen avoid nephrotoxic drugs per id Problems: Consultation Date/Type/Reason Admit Date/Time May 04, 2016 at 05:51 Type of Consultation: renal Referring Provider: AMY HANKINS MD 24 HR Interval Summary Subjective hx not possible: pt non-verbal Exam/Review of Systems Vital Signs Vitals Vital Signs Date Time Temp Pulse Resp B/P Pulse Ox O2 Delivery O2 Flow Rate FiO2 06/01/16 16:21 98.7 101 18 121/64 100 06/01/16 15:20 30 05/31/16 20:00 Mechanical Ventilator Intake and Output 05/31/16 05/31/16 06/01/16 15:00 23:00 07:00 Intake Total 1020 ml 670 ml Output Total 1700 ml 1000 ml Balance -680 ml -330 ml Exam Neck: supple Respiratory: clear to auscultation Cardiovascular: regular rate and rhythm Gastrointestinal: soft Extremities: No edema Results Result Diagram: 06/01/16 0540 06/01/16 0540 Results 24 hrs Laboratory Tests Test 05/31/16 20:57 06/01/16 05:40 06/01/16 05:43 06/01/16 14:45 Bedside Glucose 100 115 107 Anion Gap 18 H Basophils # 0.0 Basophils % 0.1 Blood Morphology Comment Blood Urea Nitrogen 40 H Calcium Level 7.7 L Carbon Dioxide Level 22 Chloride Level 107 Creatinine 1.85 H Eosinophils # 0.1 Eosinophils % 1.0 Glucose Level 95 Hematocrit 27.2 L Hemoglobin 9.3 L Lymphocytes # 1.6 Lymphocytes % 11.2 L Mean Corpuscular Hemoglobin 31.1 Mean Corpuscular Hemoglobin Concent 34.1 Mean Corpuscular Volume 91.3 Mean Platelet Volume 7.3 L Monocytes # 0.9 Monocytes % 6.6 Neutrophils # 11.2 H Neutrophils % 81.1 H Nucleated Red Blood Cells # 0.0 Nucleated Red Blood Cells % 0.0 Platelet Count 505 H Potassium Level 3.6 Red Blood Count 2.98 L Red Cell Distribution Width 15.6 H Sodium Level 143 White Blood Count 13.9 H Medications Medications Current Medications Morphine Sulfate (morphine) 2 mg Q4H PRN IV SEVERE PAIN LEVEL 7-10 Last administered on 05/07/16at 18:26; Admin Dose 2 MG; Start 05/04/16 at 07:30 Docusate Sodium (Colace) 100 mg Q12H PRN PO CONSTIPATION; Start 05/04/16 at 07 :30 Lorazepam (Ativan) 0.5 mg Q6H PRN IV ANXIETY Last administered on 05/06/16at 23 :58; Admin Dose 0.5 MG; Start 05/04/16 at 07:30 Hydralazine HCl (Apresoline) 10 mg Q6H PRN IV ELEVATED BLOOD PRESSURE; Start 05/04/16 at 07:30 Nitroglycerin (Nitroglycerin (Sl Tab) 0.4 Mg) 1 tab Q5M PRN SL ANGINA; Start 05/04/16 at 07:30 Acetaminophen (Tylenol Supp) 650 mg Q4 PRN [place] PAIN OR TEMP ABOVE 38C; Start at 07:30 Atorvastatin Calcium (Lipitor) 20 mg QHS GTB Last administered on 05/31/16 21: 03; Admin Dose 20 MG; Start 05/04/16 at 21:00 Bisacodyl (Dulcolax Supp) 10 mg Q24H PRN [place] CONSTIPATION; Start 05/04/16 at 07 :30 Levetiracetam (Keppra Liquid) 1,000 mg Q12 GTB Last administered on 06/01/16 09:59; Admin Dose 1,000 MG; Start 05/04/16 at 09:00 Multivitamins (Thera-Plus) 5 ml DAILY GTB Last administered on 06/01/16 09:59 ; Admin Dose 5 ML; Start 05/04/16 at 09:00 Miscellaneous Information 1 ea NOTE XX ; Start 05/04/16 at 09:00 Glucose (Glutose) 15 gm Q15M PRN PO DECREASED GLUCOSE; Start 05/04/16 at 09:00 Glucose (Glutose) 22.5 gm Q15M PRN PO DECREASED GLUCOSE; Start 05/04/16 at 09: 00 Dextrose (D50w Syringe) 25 ml Q15M PRN IV DECREASED GLUCOSE; Start 05/04/16 at 09:00 Dextrose (D50w Syringe) 50 ml Q15M PRN IV DECREASED GLUCOSE; Start 05/04/16 at 09:00 Glucagon (Glucagen) 1 mg Q15M PRN IM DECREASED GLUCOSE; Start 05/04/16 at 09: 00 Glucose (Glutose) 15 gm Q15M PRN BUCCAL DECREASED GLUCOSE; Start 05/04/16 at 09:00 Acetaminophen (Tylenol Liquid) 650 mg Q6H PRN GTB PAIN LEVEL 1-3 OR FEVER Last administered on 05/20/16at 05:00; Admin Dose 650 MG; Start 05/04/16 at 18:30 Metronidazole (Flagyl) 500 mg Q8 GTB Last administered on 06/01/16 13:06; Admin Dose 500 MG; Start 05/05/16 at 14:00 Collagenase (Santyl) APPLY TO NECROTIC TISSUE DAILY TOP Last administered on 10:00; Admin Dose 1 APPLIC; Start 05/06/16 at 16:30 Collagenase (Santyl) APPLY TO NECROTIC AREA PRN PRN TOP SOILING Last administered on 05/21/16at 22:04; Admin Dose 3 APPLIC; Start 05/06/16 at 16:00 Aspirin (Aspirin) 81 mg DAILY GTB Last administered on 06/01/16 09:59; Admin Dose 81 MG; Start 05/10/16 at 09:00 Ascorbic Acid (Vitamin C) 500 mg DAILY GTB Last administered on 06/01/16 09:58 ; Admin Dose 500 MG; Start 05/10/16 at 11:00 Famotidine (Pepcid) 20 mg DAILY GTB Last administered on 06/01/16 09:59; Admin Dose 20 MG; Start 05/10/16 at 11:00 Acetaminophen/ Hydrocodone Bitart ([place] (5/325)) 1 tab Q6H PRN GTB MODERATE PAIN LEVEL 4-6; Start 05/10/16 at 13:30 Metoclopramide HCl (Reglan Liq) 10 mg Q6 GTB Last administered on 06/01/16 13: 06; Admin Dose 10 MG; Start 05/10/16 at 18:00 Hydralazine HCl (Apresoline) 25 mg Q8H GTB Last administered on 06/01/16 13:06 ; Admin Dose 25 MG; Start 05/14/16 at 20:00 Insulin Glargine (Lantus) 14 unit QPM SC Last administered on 05/31/16 21:56; Admin Dose 14 UNIT; Start 05/14/16 at 21:00 Citric Acid/ Sodium Citrate (Bicitra) 30 ml TID PO Last administered on 13:12; Admin Dose 30 ML; Start 05/15/16 at 21:00 Insulin Aspart (Novolog Insulin Pen) NOVOLOG *MODERATE* ALGORITHM Q8 SC ; Start 05/20/16 at 14:00 Voriconazole 200 mg 200 mg BID PO Last administered on 06/01/16 09:59; Admin Dose 200 MG; Start 05/29/16 at 21:00 Meropenem/Sodium Chloride (Merrem/NS) 100 ml @ 200 mls/hr Q12 IVPB Last administered on 06/01/16 09:52; Admin Dose 200 MLS/HR; Start 05/30/16 at 14:30 Linezolid (Zyvox) 600 mg BID PO Last administered on 06/01/16 09:59; Admin Dose 600 MG; Start 05/30/16 at 13:00 AMBER LIEBERMAN MD Jun 01, 2016 17:26
[2016-06-01] MEDS: ATORVASTATIN 20 MG TAB GTB SCH (21:32)
[2016-06-01] MEDS: INSULIN GLARGINE [LANtus] 3 ML PEN SC SCH (22:22)
[2016-06-02] VITALS (26 sets, daily range): BP systolic 104–138; BP diastolic 52–73; PULSE 94–110; RESP 14–20
[2016-06-02] MEDS: METOCLOPRAMIDE (1 MG/ML) 10 ML CUP GTB SCH ×4 (00:40→17:53)
[2016-06-02] MEDS: metroNIDAZOLE 500 MG TAB GTB SCH ×3 (05:23→21:14)
[2016-06-02] MEDS: INSULIN ASPART [NOVOLOG] 3 ML PEN SC SCH ×3 (06:05→21:14)
[2016-06-02] MEDS: ASPIRIN 81 MG TAB GTB SCH (08:53)
[2016-06-02] MEDS: LEVETIRACETAM (100 MG/ML) 5ML CUP GTB SCH ×2 (08:53→21:13)
[2016-06-02] MEDS: CITRIC ACID/NA CITRATE 30 ML CUP PO SCH ×3 (08:54→21:13)
[2016-06-02] MEDS: ZYVOX 600 MG TAB PO SCH ×2 (08:54→21:13)
[2016-06-02] MEDS: VORICONAZOLE 200 MG TAB PO SCH ×2 (08:54→21:13)
[2016-06-02] MEDS: FAMOTIDINE 20 MG TAB GTB SCH (08:54)
[2016-06-02] MEDS: ASCORBIC ACID 500 MG TAB GTB SCH (08:54)
[2016-06-02] MEDS: MULTIVITAMINS 5 ML CUP GTB SCH (08:54)
[2016-06-02] MEDS: COLLAGENASE 30 GM TUBE TOP SCH (08:55)
[2016-06-02] MEDS: MEROPENEM 1 GM in SOD CHLORIDE 0.9% 100 ML IVPB SCH ×2 (09:07→21:13)
--- NOTE | 2016-06-02 11:45 | PN ---
Date/Time of Note Date/Time of Note DATE: 06/02/16 TIME: 11:43 Assessment/Plan VTE Prophylaxis VTE Prophylaxis Intervention: SCD's Lines/Catheters IV Catheter Type (from Nrs): Saline Lock Urinary Cath still in place: Yes Reason Cath still needed: pres ulcer contaminated by urine, skin wounds contaminated by urine, other (indicate) Assessment/Plan Chief Complaint/Hosp Course ASSESSMENT AND PLAN: 1. Sepsis, likely secondary to urinary tract infection versus sacral decubitus. The patient has been started on daptomycin and Colistimethate as per ID recommendations . Follow up infectious disease recommendations. 2. Ventilator-dependent respiratory failure, status post trach. Pulmonology has been consulted. 3. Acute renal insufficiency, restart IVF, likely secondary to sepsis versus dehydration. nephrology consulted. 4. Diabetes mellitus. Continue sliding scale and Lantus. 5. History of cerebrovascular accident. No acute issues at this time. Patient is bed bound and a phasic 6. 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 7. Seizure disorder. Continue Keppra 8. Chronic encephalopathy. Secondary to history of CVA 9. Urinary tract infection===> MDRO, urine culture KLEB PNEUMONIAE CARBAPENEMASE, follow up in infectious disease recommendations 10. Essential Hypertension, continue to monitor restart blood pressure medications cautiously 11. C. difficile toxin, repeat stool negative for C. difficile , follow-up ID recommendations to discontinue Flagyl 12. Hypokalemia, repleted 13. Hypernatremia, resolving 14. Unstageable sacral decubitus, possible osteomyelitis with a history of multiple debridements. Wound care consulted We will continue monitor patient closely for recommendation management treatment as per clinical course Condition guarded Continue to monitor in telemetry floor Plan to transfer to [facility] when accepted Problems: Subjective 24 Hr Interval Summary Free Text/Dictation No acute changes Tolerating PEG tube feeding Minimal response to pain or verbal stimuli Exam/Review of Systems Vital Signs Vitals Vital Signs Date Time Temp Pulse Resp B/P Pulse Ox O2 Delivery O2 Flow Rate FiO2 06/02/16 11:23 104/52 100 Mechanical Ventilator 06/02/16 08:48 107 14 30 06/02/16 08:09 99.6 Intake and Output 06/01/16 06/01/16 06/02/16 15:00 23:00 07:00 Intake Total 770 ml 670 ml Output Total 1650 ml 850 ml Balance -880 ml -180 ml Results Result Diagram: 06/01/16 0540 06/01/16 0540 Results 24 hrs Laboratory Tests Test 06/01/16 14:45 06/01/16 22:20 06/02/16 05:33 06/02/16 07:53 Bedside Glucose 107 125 154 147 Medications Medications Current Medications Morphine Sulfate (morphine) 2 mg Q4H PRN IV SEVERE PAIN LEVEL 7-10 Last administered on 05/07/16at 18:26; Admin Dose 2 MG; Start 05/04/16 at 07:30 Docusate Sodium (Colace) 100 mg Q12H PRN PO CONSTIPATION; Start 05/04/16 at 07 :30 Lorazepam (Ativan) 0.5 mg Q6H PRN IV ANXIETY Last administered on 05/06/16at 23 :58; Admin Dose 0.5 MG; Start 05/04/16 at 07:30 Hydralazine HCl (Apresoline) 10 mg Q6H PRN IV ELEVATED BLOOD PRESSURE; Start 05/04/16 at 07:30 Nitroglycerin (Nitroglycerin (Sl Tab) 0.4 Mg) 1 tab Q5M PRN SL ANGINA; Start 05/04/16 at 07:30 Acetaminophen (Tylenol Supp) 650 mg Q4 PRN [place] PAIN OR TEMP ABOVE 38C; Start at 07:30 Atorvastatin Calcium (Lipitor) 20 mg QHS GTB Last administered on 06/01/16 21: 32; Admin Dose 20 MG; Start 05/04/16 at 21:00 Bisacodyl (Dulcolax Supp) 10 mg Q24H PRN [place] CONSTIPATION; Start 05/04/16 at 07 :30 Levetiracetam (Keppra Liquid) 1,000 mg Q12 GTB Last administered on 06/02/16 08:53; Admin Dose 1,000 MG; Start 05/04/16 at 09:00 Multivitamins (Thera-Plus) 5 ml DAILY GTB Last administered on 06/02/16 08:54 ; Admin Dose 5 ML; Start 05/04/16 at 09:00 Miscellaneous Information 1 ea NOTE XX ; Start 05/04/16 at 09:00 Glucose (Glutose) 15 gm Q15M PRN PO DECREASED GLUCOSE; Start 05/04/16 at 09:00 Glucose (Glutose) 22.5 gm Q15M PRN PO DECREASED GLUCOSE; Start 05/04/16 at 09: 00 Dextrose (D50w Syringe) 25 ml Q15M PRN IV DECREASED GLUCOSE; Start 05/04/16 at 09:00 Dextrose (D50w Syringe) 50 ml Q15M PRN IV DECREASED GLUCOSE; Start 05/04/16 at 09:00 Glucagon (Glucagen) 1 mg Q15M PRN IM DECREASED GLUCOSE; Start 05/04/16 at 09: 00 Glucose (Glutose) 15 gm Q15M PRN BUCCAL DECREASED GLUCOSE; Start 05/04/16 at 09:00 Acetaminophen (Tylenol Liquid) 650 mg Q6H PRN GTB PAIN LEVEL 1-3 OR FEVER Last administered on 05/20/16at 05:00; Admin Dose 650 MG; Start 05/04/16 at 18:30 Metronidazole (Flagyl) 500 mg Q8 GTB Last administered on 06/02/16 05:23; Admin Dose 500 MG; Start 05/05/16 at 14:00 Collagenase (Santyl) APPLY TO NECROTIC TISSUE DAILY TOP Last administered on 08:55; Admin Dose 1 APPLIC; Start 05/06/16 at 16:30 Collagenase (Santyl) APPLY TO NECROTIC AREA PRN PRN TOP SOILING Last administered on 05/21/16at 22:04; Admin Dose 3 APPLIC; Start 05/06/16 at 16:00 Aspirin (Aspirin) 81 mg DAILY GTB Last administered on 06/02/16 08:53; Admin Dose 81 MG; Start 05/10/16 at 09:00 Ascorbic Acid (Vitamin C) 500 mg DAILY GTB Last administered on 06/02/16 08:54 ; Admin Dose 500 MG; Start 05/10/16 at 11:00 Famotidine (Pepcid) 20 mg DAILY GTB Last administered on 06/02/16 08:54; Admin Dose 20 MG; Start 05/10/16 at 11:00 Acetaminophen/ Hydrocodone Bitart ([place] (5/325)) 1 tab Q6H PRN GTB MODERATE PAIN LEVEL 4-6; Start 05/10/16 at 13:30 Metoclopramide HCl (Reglan Liq) 10 mg Q6 GTB Last administered on 06/02/16 11: 21; Admin Dose 10 MG; Start 05/10/16 at 18:00 Hydralazine HCl (Apresoline) 25 mg Q8H GTB Last administered on 06/02/16 04:57 ; Admin Dose 25 MG; Start 05/14/16 at 20:00 Insulin Glargine (Lantus) 14 unit QPM SC Last administered on 06/01/16 22:22; Admin Dose 14 UNIT; Start 05/14/16 at 21:00 Citric Acid/ Sodium Citrate (Bicitra) 30 ml TID PO Last administered on 08:54; Admin Dose 30 ML; Start 05/15/16 at 21:00 Insulin Aspart (Novolog Insulin Pen) NOVOLOG *MODERATE* ALGORITHM Q8 SC Last administered on 06/02/16 06:05; Admin Dose 2 UNIT; Start 05/20/16 at 14:00 Voriconazole 200 mg 200 mg BID PO Last administered on 06/02/16 08:54; Admin Dose 200 MG; Start 05/29/16 at 21:00 Meropenem/Sodium Chloride (Merrem/NS) 100 ml @ 200 mls/hr Q12 IVPB Last administered on 06/02/16 09:07; Admin Dose 200 MLS/HR; Start 05/30/16 at 14:30 Linezolid (Zyvox) 600 mg BID PO Last administered on 06/02/16 08:54; Admin Dose 600 MG; Start 05/30/16 at 13:00 AMY HANKINS MD Jun 02, 2016 11:44
--- NOTE | 2016-06-02 15:10 | CONS ---
Date/Time of Note Date/Time of Note DATE: 06/02/16 TIME: 15:09 Consult Date/Type/Reason Admit Date/Time May 04, 2016 at 05:51 Type of Consultation: ID Ordering Provider: AMY HANKINS MD Subjective noncommunicative, comfortable on vent, afebrile Objective Vital Signs Date Time Temp Pulse Resp B/P Pulse Ox O2 Delivery O2 Flow Rate FiO2 06/02/16 12:29 103 06/02/16 11:45 98.9 15 104/52 100 06/02/16 11:23 Mechanical Ventilator 06/02/16 08:48 30 Intake and Output 06/01/16 06/01/16 06/02/16 15:00 23:00 07:00 Intake Total 770 ml 670 ml Output Total 1650 ml 850 ml Balance -880 ml -180 ml Results/Medications Result Diagram: 06/01/16 0540 06/01/16 0540 Results 24 hrs Laboratory Tests Test 06/01/16 22:20 06/02/16 05:33 06/02/16 07:53 06/02/16 13:32 Bedside Glucose 125 154 147 115 Medications Current Medications Morphine Sulfate (morphine) 2 mg Q4H PRN IV SEVERE PAIN LEVEL 7-10 Last administered on 05/07/16at 18:26; Admin Dose 2 MG; Start 05/04/16 at 07:30 Docusate Sodium (Colace) 100 mg Q12H PRN PO CONSTIPATION; Start 05/04/16 at 07 :30 Lorazepam (Ativan) 0.5 mg Q6H PRN IV ANXIETY Last administered on 05/06/16at 23 :58; Admin Dose 0.5 MG; Start 05/04/16 at 07:30 Hydralazine HCl (Apresoline) 10 mg Q6H PRN IV ELEVATED BLOOD PRESSURE; Start 05/04/16 at 07:30 Nitroglycerin (Nitroglycerin (Sl Tab) 0.4 Mg) 1 tab Q5M PRN SL ANGINA; Start 05/04/16 at 07:30 Acetaminophen (Tylenol Supp) 650 mg Q4 PRN [place] PAIN OR TEMP ABOVE 38C; Start at 07:30 Atorvastatin Calcium (Lipitor) 20 mg QHS GTB Last administered on 06/01/16t 21: 32; Admin Dose 20 MG; Start 05/04/16 at 21:00 Bisacodyl (Dulcolax Supp) 10 mg Q24H PRN [place] CONSTIPATION; Start 05/04/16 at 07 :30 Levetiracetam (Keppra Liquid) 1,000 mg Q12 GTB Last administered on 06/02/16 08:53; Admin Dose 1,000 MG; Start 05/04/16 at 09:00 Multivitamins (Thera-Plus) 5 ml DAILY GTB Last administered on 06/02/16 08:54 ; Admin Dose 5 ML; Start 05/04/16 at 09:00 Miscellaneous Information 1 ea NOTE XX ; Start 05/04/16 at 09:00 Glucose (Glutose) 15 gm Q15M PRN PO DECREASED GLUCOSE; Start 05/04/16 at 09:00 Glucose (Glutose) 22.5 gm Q15M PRN PO DECREASED GLUCOSE; Start 05/04/16 at 09: 00 Dextrose (D50w Syringe) 25 ml Q15M PRN IV DECREASED GLUCOSE; Start 05/04/16 at 09:00 Dextrose (D50w Syringe) 50 ml Q15M PRN IV DECREASED GLUCOSE; Start 05/04/16 at 09:00 Glucagon (Glucagen) 1 mg Q15M PRN IM DECREASED GLUCOSE; Start 05/04/16 at 09: 00 Glucose (Glutose) 15 gm Q15M PRN BUCCAL DECREASED GLUCOSE; Start 05/04/16 at 09:00 Acetaminophen (Tylenol Liquid) 650 mg Q6H PRN GTB PAIN LEVEL 1-3 OR FEVER Last administered on 05/20/16at 05:00; Admin Dose 650 MG; Start 05/04/16 at 18:30 Metronidazole (Flagyl) 500 mg Q8 GTB Last administered on 06/02/16 13:25; Admin Dose 500 MG; Start 05/05/16 at 14:00 Collagenase (Santyl) APPLY TO NECROTIC TISSUE DAILY TOP Last administered on 08:55; Admin Dose 1 APPLIC; Start 05/06/16 at 16:30 Collagenase (Santyl) APPLY TO NECROTIC AREA PRN PRN TOP SOILING Last administered on 05/21/16at 22:04; Admin Dose 3 APPLIC; Start 05/06/16 at 16:00 Aspirin (Aspirin) 81 mg DAILY GTB Last administered on 06/02/16 08:53; Admin Dose 81 MG; Start 05/10/16 at 09:00 Ascorbic Acid (Vitamin C) 500 mg DAILY GTB Last administered on 06/02/16 08:54 ; Admin Dose 500 MG; Start 05/10/16 at 11:00 Famotidine (Pepcid) 20 mg DAILY GTB Last administered on 06/02/16 08:54; Admin Dose 20 MG; Start 05/10/16 at 11:00 Acetaminophen/ Hydrocodone Bitart ([place] (5/325)) 1 tab Q6H PRN GTB MODERATE PAIN LEVEL 4-6; Start 05/10/16 at 13:30 Metoclopramide HCl (Reglan Liq) 10 mg Q6 GTB Last administered on 06/02/16 11: 21; Admin Dose 10 MG; Start 05/10/16 at 18:00 Hydralazine HCl (Apresoline) 25 mg Q8H GTB Last administered on 06/02/16 04:57 ; Admin Dose 25 MG; Start 05/14/16 at 20:00 Insulin Glargine (Lantus) 14 unit QPM SC Last administered on 06/01/16 22:22; Admin Dose 14 UNIT; Start 05/14/16 at 21:00 Citric Acid/ Sodium Citrate (Bicitra) 30 ml TID PO Last administered on 13:25; Admin Dose 30 ML; Start 05/15/16 at 21:00 Insulin Aspart (Novolog Insulin Pen) NOVOLOG *MODERATE* ALGORITHM Q8 SC Last administered on 06/02/16 06:05; Admin Dose 2 UNIT; Start 05/20/16 at 14:00 Voriconazole 200 mg 200 mg BID PO Last administered on 06/02/16 08:54; Admin Dose 200 MG; Start 05/29/16 at 21:00 Meropenem/Sodium Chloride (Merrem/NS) 100 ml @ 200 mls/hr Q12 IVPB Last administered on 06/02/16 09:07; Admin Dose 200 MLS/HR; Start 05/30/16 at 14:30 Linezolid (Zyvox) 600 mg BID PO Last administered on 06/02/16 08:54; Admin Dose 600 MG; Start 05/30/16 at 13:00 Assessment/Plan Chief Complaint/Hosp Course DIAGNOSTICS: Chest x-ray 05/29 revealed patchy, hazy airspace opacity in the left lower lobe, likely airport representative of 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 INDWELLINGS: Trach, PEG, Reynolds, rectal tube. Abx: Merrem, Zyvox, Vfend, Flagyl PHYSICAL EXAMINATION: GENERAL: Chronically ill-appearing, middle-aged woman who is lying comfortably in bed. The patient is noncommunicative. She withdraws to pain. She is in no distress. HEENT: Head atraumatic, normocephalic. Sclerae anicteric. Buccal mucosa dry. NECK: Supple. Tracheostomy present. CHEST: Rise symmetrical. Breath sounds diminished to bases. HEART: S1, S2. ABDOMEN: Soft, bowel tones present. EXTREMITIES: Without cyanosis. ASSESSMENT: 1. Systemic inflammatory response syndrome with persistent leukocytosis. 2. Healthcare-associated pneumonia. 3. Status post severe sepsis with shock. 4. Status post urinary tract infection. 5. Unstageable sacral decubitus. 6. Chronic encephalopathy. 7. 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 8. Seizure disorder. 9. Acute on chronic kidney disease. PLAN: The patient remains unchanged. Continue local care, abx, vent per pulmonary DW staff Problems: DUTCH STEELE NP Jun 02, 2016 15:10
--- NOTE | 2016-06-02 15:26 | CONS ---
Date/Time of Note Date/Time of Note DATE: 06/02/16 TIME: 15:25 Consult Date/Type/Reason Admit Date/Time May 04, 2016 at 05:51 Type of Consultation: pulmonary Ordering Provider: AMY HANKINS MD Subjective Patient remained stable no new events Objective Vital Signs Date Time Temp Pulse Resp B/P Pulse Ox O2 Delivery O2 Flow Rate FiO2 06/02/16 12:29 103 06/02/16 11:45 98.9 15 104/52 100 06/02/16 11:23 Mechanical Ventilator 06/02/16 08:48 30 Intake and Output 06/01/16 06/01/16 06/02/16 15:00 23:00 07:00 Intake Total 770 ml 670 ml Output Total 1650 ml 850 ml Balance -880 ml -180 ml PHYSICAL EXAMINATION: VITAL SIGNS: As above HEENT: Pupils are equal and reactive to light. NECK: Supple, no JVD noted, no cervical adenopathy noted, no carotid bruits heard. LUNGS: Fair breath sounds bilaterally. CARDIOVASCULAR: S1, S2 normal. ABDOMEN: Soft, nontender. Positive bowel sounds. EXTREMITIES: No clubbing, cyanosis, or edema noted. NEUROLOGIC: Encephalopathic. Results/Medications Result Diagram: 06/01/16 0540 06/01/16 0540 Results 24 hrs Laboratory Tests Test 06/01/16 22:20 06/02/16 05:33 06/02/16 07:53 06/02/16 13:32 Bedside Glucose 125 154 147 115 Medications Current Medications Morphine Sulfate (morphine) 2 mg Q4H PRN IV SEVERE PAIN LEVEL 7-10 Last administered on 05/07/16at 18:26; Admin Dose 2 MG; Start 05/04/16 at 07:30 Docusate Sodium (Colace) 100 mg Q12H PRN PO CONSTIPATION; Start 05/04/16 at 07 :30 Lorazepam (Ativan) 0.5 mg Q6H PRN IV ANXIETY Last administered on 05/06/16at 23 :58; Admin Dose 0.5 MG; Start 05/04/16 at 07:30 Hydralazine HCl (Apresoline) 10 mg Q6H PRN IV ELEVATED BLOOD PRESSURE; Start 05/04/16 at 07:30 Nitroglycerin (Nitroglycerin (Sl Tab) 0.4 Mg) 1 tab Q5M PRN SL ANGINA; Start 05/04/16 at 07:30 Acetaminophen (Tylenol Supp) 650 mg Q4 PRN [place] PAIN OR TEMP ABOVE 38C; Start at 07:30 Atorvastatin Calcium (Lipitor) 20 mg QHS GTB Last administered on 06/01/16 21: 32; Admin Dose 20 MG; Start 05/04/16 at 21:00 Bisacodyl (Dulcolax Supp) 10 mg Q24H PRN [place] CONSTIPATION; Start 05/04/16 at 07 :30 Levetiracetam (Keppra Liquid) 1,000 mg Q12 GTB Last administered on 06/02/16 08:53; Admin Dose 1,000 MG; Start 05/04/16 at 09:00 Multivitamins (Thera-Plus) 5 ml DAILY GTB Last administered on 06/02/16 08:54 ; Admin Dose 5 ML; Start 05/04/16 at 09:00 Miscellaneous Information 1 ea NOTE XX ; Start 05/04/16 at 09:00 Glucose (Glutose) 15 gm Q15M PRN PO DECREASED GLUCOSE; Start 05/04/16 at 09:00 Glucose (Glutose) 22.5 gm Q15M PRN PO DECREASED GLUCOSE; Start 05/04/16 at 09: 00 Dextrose (D50w Syringe) 25 ml Q15M PRN IV DECREASED GLUCOSE; Start 05/04/16 at 09:00 Dextrose (D50w Syringe) 50 ml Q15M PRN IV DECREASED GLUCOSE; Start 05/04/16 at 09:00 Glucagon (Glucagen) 1 mg Q15M PRN IM DECREASED GLUCOSE; Start 05/04/16 at 09: 00 Glucose (Glutose) 15 gm Q15M PRN BUCCAL DECREASED GLUCOSE; Start 05/04/16 at 09:00 Acetaminophen (Tylenol Liquid) 650 mg Q6H PRN GTB PAIN LEVEL 1-3 OR FEVER Last administered on 05/20/16at 05:00; Admin Dose 650 MG; Start 05/04/16 at 18:30 Metronidazole (Flagyl) 500 mg Q8 GTB Last administered on 06/02/16 13:25; Admin Dose 500 MG; Start 05/05/16 at 14:00 Collagenase (Santyl) APPLY TO NECROTIC TISSUE DAILY TOP Last administered on 08:55; Admin Dose 1 APPLIC; Start 05/06/16 at 16:30 Collagenase (Santyl) APPLY TO NECROTIC AREA PRN PRN TOP SOILING Last administered on 05/21/16at 22:04; Admin Dose 3 APPLIC; Start 05/06/16 at 16:00 Aspirin (Aspirin) 81 mg DAILY GTB Last administered on 06/02/16 08:53; Admin Dose 81 MG; Start 05/10/16 at 09:00 Ascorbic Acid (Vitamin C) 500 mg DAILY GTB Last administered on 06/02/16 08:54 ; Admin Dose 500 MG; Start 05/10/16 at 11:00 Famotidine (Pepcid) 20 mg DAILY GTB Last administered on 06/02/16 08:54; Admin Dose 20 MG; Start 05/10/16 at 11:00 Acetaminophen/ Hydrocodone Bitart ([place] (5/325)) 1 tab Q6H PRN GTB MODERATE PAIN LEVEL 4-6; Start 05/10/16 at 13:30 Metoclopramide HCl (Reglan Liq) 10 mg Q6 GTB Last administered on 06/02/16 11: 21; Admin Dose 10 MG; Start 05/10/16 at 18:00 Hydralazine HCl (Apresoline) 25 mg Q8H GTB Last administered on 06/02/16 04:57 ; Admin Dose 25 MG; Start 05/14/16 at 20:00 Insulin Glargine (Lantus) 14 unit QPM SC Last administered on 06/01/16 22:22; Admin Dose 14 UNIT; Start 05/14/16 at 21:00 Citric Acid/ Sodium Citrate (Bicitra) 30 ml TID PO Last administered on 13:25; Admin Dose 30 ML; Start 05/15/16 at 21:00 Insulin Aspart (Novolog Insulin Pen) NOVOLOG *MODERATE* ALGORITHM Q8 SC Last administered on 06/02/16 06:05; Admin Dose 2 UNIT; Start 05/20/16 at 14:00 Voriconazole 200 mg 200 mg BID PO Last administered on 06/02/16 08:54; Admin Dose 200 MG; Start 05/29/16 at 21:00 Meropenem/Sodium Chloride (Merrem/NS) 100 ml @ 200 mls/hr Q12 IVPB Last administered on 06/02/16 09:07; Admin Dose 200 MLS/HR; Start 05/30/16 at 14:30 Linezolid (Zyvox) 600 mg BID PO Last administered on 06/02/16 08:54; Admin Dose 600 MG; Start 05/30/16 at 13:00 Assessment/Plan Chief Complaint/Hosp Course IMPRESSION: 1. Ventilator-dependent respiratory failure, hypoxemic. 2. Status post septic shock. 3. History of cerebrovascular accident. 4. Anemia. 5. Encephalopathy. RECOMMENDATIONS: 1. The patient will be transferred to [facility] when accepted. 2. Continue vent support. 3. Antibiotics per Infectious Disease. 4. Discharge planning in process. Problems: JIMMY GONSALEZ MD, [facility] Jun 02, 2016 15:26
[2016-06-02] MEDS: ATORVASTATIN 20 MG TAB GTB SCH (21:13)
[2016-06-02] MEDS: INSULIN GLARGINE [LANtus] 3 ML PEN SC SCH (21:25)
--- NOTE | 2016-06-02 21:32 | CONS ---
Date/Time of Note Date/Time of Note DATE: 06/02/16 TIME: 21:31 Assessment/Plan Assessment/Plan Chief Complaint/Hosp Course IMPRESSION: 1. Patient has [id number]-[id number] kidney disease. 2. Acute renal failure drug induced atn 3. Underlying acute tubular necrosis due to sepsis/meds. 4. Severe sepsis.c diff 5. hypernatremia.better 6. Free water deficit.BETTER 7. RES FAILURE 8. Lactic acidosis.BETTER 9. vdrf. 10. Anemia. 11. History of tracheostomy. 12 METABOLIC ACIDOSIS better PLAN labs seen avoid nephrotoxic drugs per id ck bmp Problems: Consultation Date/Type/Reason Admit Date/Time May 04, 2016 at 05:51 Type of Consultation: renal Referring Provider: AMY HANKINS MD 24 HR Interval Summary Subjective hx not possible: pt non-verbal Exam/Review of Systems Vital Signs Vitals Vital Signs Date Time Temp Pulse Resp B/P Pulse Ox O2 Delivery O2 Flow Rate FiO2 06/02/16 20:37 98.4 110 17 128/73 100 06/02/16 19:48 30 06/02/16 11:23 Mechanical Ventilator Intake and Output 06/01/16 06/01/16 06/02/16 15:00 23:00 07:00 Intake Total 770 ml 670 ml Output Total 1650 ml 850 ml Balance -880 ml -180 ml Exam Neck: supple Respiratory: clear to auscultation Cardiovascular: regular rate and rhythm Gastrointestinal: soft Results Result Diagram: 06/01/16 0540 06/01/16 0540 Results 24 hrs Laboratory Tests Test 06/01/16 22:20 06/02/16 05:33 06/02/16 07:53 06/02/16 13:32 Bedside Glucose 125 154 147 115 Test 06/02/16 21:12 Bedside Glucose 111 Medications Medications Current Medications Morphine Sulfate (morphine) 2 mg Q4H PRN IV SEVERE PAIN LEVEL 7-10 Last administered on 05/07/16at 18:26; Admin Dose 2 MG; Start 05/04/16 at 07:30 Docusate Sodium (Colace) 100 mg Q12H PRN PO CONSTIPATION; Start 05/04/16 at 07 :30 Lorazepam (Ativan) 0.5 mg Q6H PRN IV ANXIETY Last administered on 05/06/16at 23 :58; Admin Dose 0.5 MG; Start 05/04/16 at 07:30 Hydralazine HCl (Apresoline) 10 mg Q6H PRN IV ELEVATED BLOOD PRESSURE; Start 05/04/16 at 07:30 Nitroglycerin (Nitroglycerin (Sl Tab) 0.4 Mg) 1 tab Q5M PRN SL ANGINA; Start 05/04/16 at 07:30 Acetaminophen (Tylenol Supp) 650 mg Q4 PRN [place] PAIN OR TEMP ABOVE 38C; Start at 07:30 Atorvastatin Calcium (Lipitor) 20 mg QHS GTB Last administered on 06/02/16 21: 13; Admin Dose 20 MG; Start 05/04/16 at 21:00 Bisacodyl (Dulcolax Supp) 10 mg Q24H PRN [place] CONSTIPATION; Start 05/04/16 at 07 :30 Levetiracetam (Keppra Liquid) 1,000 mg Q12 GTB Last administered on 06/02/16 21:13; Admin Dose 1,000 MG; Start 05/04/16 at 09:00 Multivitamins (Thera-Plus) 5 ml DAILY GTB Last administered on 06/02/16 08:54 ; Admin Dose 5 ML; Start 05/04/16 at 09:00 Miscellaneous Information 1 ea NOTE XX ; Start 05/04/16 at 09:00 Glucose (Glutose) 15 gm Q15M PRN PO DECREASED GLUCOSE; Start 05/04/16 at 09:00 Glucose (Glutose) 22.5 gm Q15M PRN PO DECREASED GLUCOSE; Start 05/04/16 at 09: 00 Dextrose (D50w Syringe) 25 ml Q15M PRN IV DECREASED GLUCOSE; Start 05/04/16 at 09:00 Dextrose (D50w Syringe) 50 ml Q15M PRN IV DECREASED GLUCOSE; Start 05/04/16 at 09:00 Glucagon (Glucagen) 1 mg Q15M PRN IM DECREASED GLUCOSE; Start 05/04/16 at 09: 00 Glucose (Glutose) 15 gm Q15M PRN BUCCAL DECREASED GLUCOSE; Start 05/04/16 at 09:00 Acetaminophen (Tylenol Liquid) 650 mg Q6H PRN GTB PAIN LEVEL 1-3 OR FEVER Last administered on 05/20/16at 05:00; Admin Dose 650 MG; Start 05/04/16 at 18:30 Metronidazole (Flagyl) 500 mg Q8 GTB Last administered on 06/02/16 21:14; Admin Dose 500 MG; Start 05/05/16 at 14:00 Collagenase (Santyl) APPLY TO NECROTIC TISSUE DAILY TOP Last administered on 08:55; Admin Dose 1 APPLIC; Start 05/06/16 at 16:30 Collagenase (Santyl) APPLY TO NECROTIC AREA PRN PRN TOP SOILING Last administered on 05/21/16at 22:04; Admin Dose 3 APPLIC; Start 05/06/16 at 16:00 Aspirin (Aspirin) 81 mg DAILY GTB Last administered on 06/02/16 08:53; Admin Dose 81 MG; Start 05/10/16 at 09:00 Ascorbic Acid (Vitamin C) 500 mg DAILY GTB Last administered on 06/02/16 08:54 ; Admin Dose 500 MG; Start 05/10/16 at 11:00 Famotidine (Pepcid) 20 mg DAILY GTB Last administered on 06/02/16 08:54; Admin Dose 20 MG; Start 05/10/16 at 11:00 Acetaminophen/ Hydrocodone Bitart ([place] (5/325)) 1 tab Q6H PRN GTB MODERATE PAIN LEVEL 4-6; Start 05/10/16 at 13:30 Metoclopramide HCl (Reglan Liq) 10 mg Q6 GTB Last administered on 06/02/16 17: 53; Admin Dose 10 MG; Start 05/10/16 at 18:00 Hydralazine HCl (Apresoline) 25 mg Q8H GTB Last administered on 06/02/16 21:00 ; Admin Dose 25 MG; Start 05/14/16 at 20:00 Insulin Glargine (Lantus) 14 unit QPM SC Last administered on 06/02/16 21:25; Admin Dose 14 UNIT; Start 05/14/16 at 21:00 Citric Acid/ Sodium Citrate (Bicitra) 30 ml TID PO Last administered on 21:13; Admin Dose 30 ML; Start 05/15/16 at 21:00 Insulin Aspart (Novolog Insulin Pen) NOVOLOG *MODERATE* ALGORITHM Q8 SC Last administered on 06/02/16 06:05; Admin Dose 2 UNIT; Start 05/20/16 at 14:00 Voriconazole 200 mg 200 mg BID PO Last administered on 06/02/16 21:13; Admin Dose 200 MG; Start 05/29/16 at 21:00 Meropenem/Sodium Chloride (Merrem/NS) 100 ml @ 200 mls/hr Q12 IVPB Last administered on 06/02/16 21:13; Admin Dose 200 MLS/HR; Start 05/30/16 at 14:30 Linezolid (Zyvox) 600 mg BID PO Last administered on 06/02/16 21:13; Admin Dose 600 MG; Start 05/30/16 at 13:00 AMBER LIEBERMAN MD Jun 02, 2016 21:32
[2016-06-03] VITALS (19 sets, daily range): BP systolic 103–128; BP diastolic 67–77; PULSE 93–112; RESP 14–20
[2016-06-03] MEDS: METOCLOPRAMIDE (1 MG/ML) 10 ML CUP GTB SCH ×4 (01:00→17:45)
[2016-06-03] MEDS: metroNIDAZOLE 500 MG TAB GTB SCH ×2 (05:02→13:42)
[2016-06-03] MEDS: INSULIN ASPART [NOVOLOG] 3 ML PEN SC SCH ×2 (05:03→13:42)
[2016-06-03 07:05] LABS: POTASSIUM 3.7 mmol/L (3.5-5.1)
[2016-06-03 07:07] LABS: CREATININE 1.61 mg/dl (0.44-1.00)
[2016-06-03 07:08] LABS: CALCIUM 7.4 mg/dl (8.4-10.2)
[2016-06-03] MEDS: MEROPENEM 1 GM in SOD CHLORIDE 0.9% 100 ML IVPB SCH (08:45)
[2016-06-03] MEDS: LEVETIRACETAM (100 MG/ML) 5ML CUP GTB SCH (08:46)
[2016-06-03] MEDS: CITRIC ACID/NA CITRATE 30 ML CUP PO SCH ×2 (08:46→12:19)
[2016-06-03] MEDS: ZYVOX 600 MG TAB PO SCH (08:47)
[2016-06-03] MEDS: FAMOTIDINE 20 MG TAB GTB SCH (08:47)
[2016-06-03] MEDS: ASCORBIC ACID 500 MG TAB GTB SCH (08:47)
[2016-06-03] MEDS: ASPIRIN 81 MG TAB GTB SCH (08:47)
[2016-06-03] MEDS: VORICONAZOLE 200 MG TAB PO SCH (08:48)
[2016-06-03] MEDS: COLLAGENASE 30 GM TUBE TOP SCH (08:49)
[2016-06-03] MEDS: MULTIVITAMINS 5 ML CUP GTB SCH (08:52)
--- NOTE | 2016-06-03 11:43 | CONS ---
Date/Time of Note Date/Time of Note DATE: 06/03/16 TIME: 11:42 Consult Date/Type/Reason Admit Date/Time May 04, 2016 at 05:51 Type of Consultation: pulmonary Ordering Provider: AMY HANKINS MD Subjective No significant changes Objective Vital Signs Date Time Temp Pulse Resp B/P Pulse Ox O2 Delivery O2 Flow Rate FiO2 06/03/16 11:07 108 14 100 30 06/03/16 08:26 98.6 128/67 06/02/16 11:23 Mechanical Ventilator Intake and Output 06/02/16 06/02/16 06/03/16 15:00 23:00 07:00 Intake Total 200 ml 570 ml Output Total 1350 ml Balance 200 ml -780 ml PHYSICAL EXAMINATION: VITAL SIGNS: As above HEENT: Pupils are equal and reactive to light. Anicteric sclerae. NECK: Supple, no JVD noted. No cervical adenopathy noted. No carotid bruits heard. LUNGS: Decreased breath sounds at the right base. CARDIOVASCULAR: S1, S2 normal. ABDOMEN: Soft, nontender. No organomegaly or masses noted. EXTREMITIES: No clubbing, cyanosis, or edema noted. NEUROLOGIC: Awake and alert. Results/Medications Result Diagram: 06/01/16 0540 06/03/16 0610 Results 24 hrs Laboratory Tests Test 06/02/16 13:32 06/02/16 21:12 06/03/16 05:00 06/03/16 06:10 Bedside Glucose 115 111 109 Anion Gap 19 H Blood Urea Nitrogen 43 H Calcium Level 7.4 L Carbon Dioxide Level 22 Chloride Level 107 Creatinine 1.61 H Glucose Level 95 Potassium Level 3.7 Sodium Level 144 Medications Current Medications Morphine Sulfate (morphine) 2 mg Q4H PRN IV SEVERE PAIN LEVEL 7-10 Last administered on 05/07/16at 18:26; Admin Dose 2 MG; Start 05/04/16 at 07:30 Docusate Sodium (Colace) 100 mg Q12H PRN PO CONSTIPATION; Start 05/04/16 at 07 :30 Lorazepam (Ativan) 0.5 mg Q6H PRN IV ANXIETY Last administered on 05/06/16at 23 :58; Admin Dose 0.5 MG; Start 05/04/16 at 07:30 Hydralazine HCl (Apresoline) 10 mg Q6H PRN IV ELEVATED BLOOD PRESSURE; Start 05/04/16 at 07:30 Nitroglycerin (Nitroglycerin (Sl Tab) 0.4 Mg) 1 tab Q5M PRN SL ANGINA; Start 05/04/16 at 07:30 Acetaminophen (Tylenol Supp) 650 mg Q4 PRN [place] PAIN OR TEMP ABOVE 38C; Start at 07:30 Atorvastatin Calcium (Lipitor) 20 mg QHS GTB Last administered on 06/02/16 21: 13; Admin Dose 20 MG; Start 05/04/16 at 21:00 Bisacodyl (Dulcolax Supp) 10 mg Q24H PRN [place] CONSTIPATION; Start 05/04/16 at 07 :30 Levetiracetam (Keppra Liquid) 1,000 mg Q12 GTB Last administered on 06/03/16 08:46; Admin Dose 1,000 MG; Start 05/04/16 at 09:00 Multivitamins (Thera-Plus) 5 ml DAILY GTB Last administered on 06/03/16 08:52 ; Admin Dose 5 ML; Start 05/04/16 at 09:00 Miscellaneous Information 1 ea NOTE XX ; Start 05/04/16 at 09:00 Glucose (Glutose) 15 gm Q15M PRN PO DECREASED GLUCOSE; Start 05/04/16 at 09:00 Glucose (Glutose) 22.5 gm Q15M PRN PO DECREASED GLUCOSE; Start 05/04/16 at 09: 00 Dextrose (D50w Syringe) 25 ml Q15M PRN IV DECREASED GLUCOSE; Start 05/04/16 at 09:00 Dextrose (D50w Syringe) 50 ml Q15M PRN IV DECREASED GLUCOSE; Start 05/04/16 at 09:00 Glucagon (Glucagen) 1 mg Q15M PRN IM DECREASED GLUCOSE; Start 05/04/16 at 09: 00 Glucose (Glutose) 15 gm Q15M PRN BUCCAL DECREASED GLUCOSE; Start 05/04/16 at 09:00 Acetaminophen (Tylenol Liquid) 650 mg Q6H PRN GTB PAIN LEVEL 1-3 OR FEVER Last administered on 05/20/16at 05:00; Admin Dose 650 MG; Start 05/04/16 at 18:30 Metronidazole (Flagyl) 500 mg Q8 GTB Last administered on 06/03/16 05:02; Admin Dose 500 MG; Start 05/05/16 at 14:00 Collagenase (Santyl) APPLY TO NECROTIC TISSUE DAILY TOP Last administered on 08:49; Admin Dose 1 APPLIC; Start 05/06/16 at 16:30 Collagenase (Santyl) APPLY TO NECROTIC AREA PRN PRN TOP SOILING Last administered on 05/21/16at 22:04; Admin Dose 3 APPLIC; Start 05/06/16 at 16:00 Aspirin (Aspirin) 81 mg DAILY GTB Last administered on 06/03/16 08:47; Admin Dose 81 MG; Start 05/10/16 at 09:00 Ascorbic Acid (Vitamin C) 500 mg DAILY GTB Last administered on 06/03/16 08:47 ; Admin Dose 500 MG; Start 05/10/16 at 11:00 Famotidine (Pepcid) 20 mg DAILY GTB Last administered on 06/03/16 08:47; Admin Dose 20 MG; Start 05/10/16 at 11:00 Acetaminophen/ Hydrocodone Bitart ([place] (5/325)) 1 tab Q6H PRN GTB MODERATE PAIN LEVEL 4-6; Start 05/10/16 at 13:30 Metoclopramide HCl (Reglan Liq) 10 mg Q6 GTB Last administered on 06/03/16 05: 02; Admin Dose 10 MG; Start 05/10/16 at 18:00 Hydralazine HCl (Apresoline) 25 mg Q8H GTB Last administered on 06/03/16 05:03 ; Admin Dose 25 MG; Start 05/14/16 at 20:00 Insulin Glargine (Lantus) 14 unit QPM SC Last administered on 06/02/16 21:25; Admin Dose 14 UNIT; Start 05/14/16 at 21:00 Citric Acid/ Sodium Citrate (Bicitra) 30 ml TID PO Last administered on 08:46; Admin Dose 30 ML; Start 05/15/16 at 21:00 Insulin Aspart (Novolog Insulin Pen) NOVOLOG *MODERATE* ALGORITHM Q8 SC Last administered on 06/02/16 06:05; Admin Dose 2 UNIT; Start 05/20/16 at 14:00 Voriconazole 200 mg 200 mg BID PO Last administered on 06/03/16 08:48; Admin Dose 200 MG; Start 05/29/16 at 21:00 Meropenem/Sodium Chloride (Merrem/NS) 100 ml @ 200 mls/hr Q12 IVPB Last administered on 06/03/16 08:45; Admin Dose 200 MLS/HR; Start 05/30/16 at 14:30 Linezolid (Zyvox) 600 mg BID PO Last administered on 06/03/16 08:47; Admin Dose 600 MG; Start 05/30/16 at 13:00 Assessment/Plan Chief Complaint/Hosp Course IMPRESSION: 1. Ventilator-dependent respiratory failure, hypoxemic. 2. Status post septic shock. 3. History of cerebrovascular accident. 4. Anemia. 5. Encephalopathy. RECOMMENDATIONS: 1. The patient will be transferred to [facility] when accepted. 2. Continue vent support. 3. Antibiotics per Infectious Disease. 4. Discharge planning in process. Problems: JIMMY GONSALEZ MD, [facility] Jun 03, 2016 11:43
--- NOTE | 2016-06-03 13:50 | DS ---
Date/Time of Note Date/Time of Note DATE: 06/03/16 TIME: 13:43 Discharge Summary Admission/Discharge Info Admit Date/Time May 04, 2016 at 05:51 Discharge Date/Time 06/03/16 Final Diagnosis DIAGNOSES: 1. Sepsis. 2. Acute on chronic renal insufficiency. 3. Acute on chronic respiratory failure. 4. Ventilator dependent respiratory failure. 5. Diabetes mellitus. 6. History of cerebrovascular accident. 7. Dyslipidemia. 8. Essential hypertension. 9. Clostridium difficile toxin. 10. Hyperkalemia 11. Dysphagia. 12. Status post urinary tract infection. 13. Healthcare-associated pneumonia. 14. Chronic encephalopathy. 15. Unstageable sacral decubitus. 16. 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 17. Seizure disorder. Patient Condition: Fair Hospital Course Addendum for discharge summary which was done by me on 06/01/2016 HOSPITAL COURSE: Please also see my discharge summary which was done on 2015. This is an unfortunate 46-year-old female with past medical history of previous hemorrhage with CVA, neurological compromise, encephalopathy, chronic respiratory failure, vent dependent, status post tracheostomy, previous hydrocephalus, status post [employer]NAL [employer] shunt placement secondary to bacteremia, status post PEG tube placement, diabetes mellitus type 2, hypertension, seizure disorder, CHF, diastolic dysfunction, history of left-sided abdominal wall abscess, status post insertion of peritoneal portion of tunneled [employer] shunt, previous hospitalization secondary to sepsis, sacral decubitus which is unstageable who [facility], although the patient was noted having worsening of her respiratory distress. As per her 's request, the patient was transferred to [facility] Emergency Room where WBC was 14.5, hemoglobin 9.4. Urinalysis was positive for urinary tract infection. The patient's urine culture showed Deyanira glabrata. Stool was positive for C. diff. Wound culture positive for Klebsiella pneumoniae, multidrug resistant organism, Proteus mirabilis. Infectious disease doctor, pulmonology, and palliative care physician was consulted. The patient was placed on vancomycin and Zosyn and was transitioned to vancomycin, meropenem, Flagyl, and Vfend. She was continued on aggressive medical management, was initially admitted to ICU secondary to sepsis and the patient's need for pressors. The pressors were essentially weaned off, and the patient was transferred to telemetry floor where she was continued on aggressive medical management. There were several meetings with the patient's regarding the code status. The patient's decided to change the code status to DNR. The patient was found to have urine culture positive for Klebsiella pneumoniae, Carbapenemase, a multidrug resistant organism resistant to all, although the patient has been placed on Zyvox and meropenem as per infectious disease doctor. These findings have been discussed with the patient's . Also the patient's wound showed Klebsiella pneumoniae Carbapenemase, multidrug resistant organism, Proteus mirabilis, vancomycin-resistant Enterococcus, isolated from blood only. As stated above, infectious disease doctor was consulted. The patient's repeat C. diff was found to be negative on 05/14/2016. Unfortunately, due to insurance purposes and the patient having multidrug resistant urine culture and gram culture, the patient was not able to be placed in any penitentiary facility. Fortunately, the patient has been reviewed by [facility], and at this time, the patient has been accepted to that facility for continuation of IV antibiotics and breathing treatment and trach care. There have been several meetings with the patient's and daughter regarding the patient's care and prognosis which is poor secondary to the patient's state and conditions such as having multi resistant bacteria and the patient being in and out of the hospital secondary to sepsis and the patient having unstageable decubitus ulcer. At this time, the patient is in fair condition to be transferred to [facility] at which the same care will be initiated. Patient will need to continue her IV antibiotics as per infectious disease, and wound care Patient vitals are stable at the time of discharge Home Meds Reported Medications Metoclopramide* (Reglan*) 10 Mg/10 Ml Soln, 10 ML GTB, ML 10/23/15 Famotidine* (Famotidine*) 20 Mg Tablet, 20 MG PO DAILY, #30 TAB 10/23/15 Multivit &Minerals/Ferrous Fum (MULTIVITAMIN LIQUID) 9 Mg/15 Ml Liquid, 5 CU GTB DAILY 10/23/15 Levetiracetam* (Keppra*) 500 Mg/5 Ml Solution, 10 ML PO Q12 for 30 Days, BOTTLE 10/23/15 Ferrous Sulfate* (Ferrous Sulfate*) 325 Mg Tabec, 330 MG GTB TID, TAB 10/23/15 Hydralazine Hcl* (Hydralazine Hcl*) 25 Mg Tab, 25 MG PO Q6, #90 TAB 10/23/15 Clonidine Hcl* (Clonidine Hcl*) 0.1 Mg Tab, 0.1 MG PO Q6, TAB 10/23/15 Ascorbic Acid* (Vitamin C* Liq) 500 Mg/5 Ml Syrup, 500 MG GTB DAILY, ML 10/23/15 Cran/Vitc/Mannose/Inulin/Brom (Uti-Stat Liquid) 3,875 Mg/30 Ml Liquid, 3875 MG GTB DAILY 10/23/15 Atorvastatin Calcium* (Atorvastatin Calcium*) 20 Mg Tablet, 20 MG GTB QHS, #30 TAB 10/23/15 Ipratropium [place]* (Atrovent HFA*) 12.9 Gm Aer.w.adap, 2 PUFF INHALATION Q4 for SHORTNESS OF BREATH, #1 INHALER 08/29/15 Hydrocodone Bit-Acetaminophen* (Joaquin*) 5-325 Mg Tab, 1 TAB PO Q6 Y for PAIN, TAB 08/29/15 Ondansetron HCl/Pf (Ondansetron HCl 4 mg/2 ml Syr) 4 Mg/2 Ml Syringe, 4 MG IV Q6 Y for NAUSEA AND/OR VOMITING 08/29/15 Sennosides* (Senna Lax*) 8.6 Mg Tablet, 2 TAB PO DAILY, TAB 08/29/15 Acetaminophen* (Acetaminophen* Supp) 650 Mg/Supp.rect Supp.rect, 650 MG [place] Q4 Y for PAIN OR TEMP ABOVE 38C, SUPP.RECT 08/29/15 Insulin Lispro (Humalog) 100 U/Ml Cartridge, 0 SC SLIDING SCALE AC, EA 08/29/15 Artificial Tears* (Artificial Tears* Ophth) 15 ml Opht, 1 DROP BOTH EYES Q4H WHILE AWAKE Y for DRY EYES, EA 08/29/15 Pending Labs Laboratory Tests Test 06/02/16 21:12 06/03/16 05:00 06/03/16 06:10 Bedside Glucose 111mg/dL (70-220) 109mg/dL (70-220) Anion Gap 19 (8-16) Blood Urea Nitrogen 43mg/dl (7-20) Calcium Level 7.4mg/dl (8.4-10.2) Carbon Dioxide Level 22mmol/L (21-31) Chloride Level 107mmol/L (97-110) Creatinine 1.61mg/dl (0.44-1.00) Glucose Level 95mg/dl (70-220) Potassium Level 3.7mmol/L (3.5-5.1) Sodium Level 144mmol/L (135-144) AMY HANKINS MD Jun 03, 2016 13:50
--- NOTE | 2016-06-03 15:30 | CONS ---
Date/Time of Note Date/Time of Note DATE: 06/03/16 TIME: 15:29 Consult Date/Type/Reason Admit Date/Time May 04, 2016 at 05:51 Type of Consultation: id Ordering Provider: AMY HANKINS MD Subjective no acute changes, no fevers, nad Objective Vital Signs Date Time Temp Pulse Resp B/P Pulse Ox O2 Delivery O2 Flow Rate FiO2 06/03/16 13:20 107 14 100 30 06/03/16 12:10 98.5 103/77 06/02/16 11:23 Mechanical Ventilator Intake and Output 06/02/16 06/02/16 06/03/16 15:00 23:00 07:00 Intake Total 200 ml 570 ml Output Total 1350 ml Balance 200 ml -780 ml Results/Medications Result Diagram: 06/01/16 0540 06/03/16 0610 Results 24 hrs Laboratory Tests Test 06/02/16 21:12 06/03/16 05:00 06/03/16 06:10 06/03/16 13:41 Bedside Glucose 111 109 118 Anion Gap 19 H Blood Urea Nitrogen 43 H Calcium Level 7.4 L Carbon Dioxide Level 22 Chloride Level 107 Creatinine 1.61 H Glucose Level 95 Potassium Level 3.7 Sodium Level 144 Medications Current Medications Morphine Sulfate (morphine) 2 mg Q4H PRN IV SEVERE PAIN LEVEL 7-10 Last administered on 05/07/16at 18:26; Admin Dose 2 MG; Start 05/04/16 at 07:30 Docusate Sodium (Colace) 100 mg Q12H PRN PO CONSTIPATION; Start 05/04/16 at 07 :30 Lorazepam (Ativan) 0.5 mg Q6H PRN IV ANXIETY Last administered on 05/06/16at 23 :58; Admin Dose 0.5 MG; Start 05/04/16 at 07:30 Hydralazine HCl (Apresoline) 10 mg Q6H PRN IV ELEVATED BLOOD PRESSURE; Start 05/04/16 at 07:30 Nitroglycerin (Nitroglycerin (Sl Tab) 0.4 Mg) 1 tab Q5M PRN SL ANGINA; Start 05/04/16 at 07:30 Acetaminophen (Tylenol Supp) 650 mg Q4 PRN [place] PAIN OR TEMP ABOVE 38C; Start at 07:30 Atorvastatin Calcium (Lipitor) 20 mg QHS GTB Last administered on 06/02/16 21: 13; Admin Dose 20 MG; Start 05/04/16 at 21:00 Bisacodyl (Dulcolax Supp) 10 mg Q24H PRN [place] CONSTIPATION; Start 05/04/16 at 07 :30 Levetiracetam (Keppra Liquid) 1,000 mg Q12 GTB Last administered on 06/03/16 08:46; Admin Dose 1,000 MG; Start 05/04/16 at 09:00 Multivitamins (Thera-Plus) 5 ml DAILY GTB Last administered on 06/03/16 08:52 ; Admin Dose 5 ML; Start 05/04/16 at 09:00 Miscellaneous Information 1 ea NOTE XX ; Start 05/04/16 at 09:00 Glucose (Glutose) 15 gm Q15M PRN PO DECREASED GLUCOSE; Start 05/04/16 at 09:00 Glucose (Glutose) 22.5 gm Q15M PRN PO DECREASED GLUCOSE; Start 05/04/16 at 09: 00 Dextrose (D50w Syringe) 25 ml Q15M PRN IV DECREASED GLUCOSE; Start 05/04/16 at 09:00 Dextrose (D50w Syringe) 50 ml Q15M PRN IV DECREASED GLUCOSE; Start 05/04/16 at 09:00 Glucagon (Glucagen) 1 mg Q15M PRN IM DECREASED GLUCOSE; Start 05/04/16 at 09: 00 Glucose (Glutose) 15 gm Q15M PRN BUCCAL DECREASED GLUCOSE; Start 05/04/16 at 09:00 Acetaminophen (Tylenol Liquid) 650 mg Q6H PRN GTB PAIN LEVEL 1-3 OR FEVER Last administered on 05/20/16at 05:00; Admin Dose 650 MG; Start 05/04/16 at 18:30 Metronidazole (Flagyl) 500 mg Q8 GTB Last administered on 06/03/16 13:42; Admin Dose 500 MG; Start 05/05/16 at 14:00 Collagenase (Santyl) APPLY TO NECROTIC TISSUE DAILY TOP Last administered on 08:49; Admin Dose 1 APPLIC; Start 05/06/16 at 16:30 Collagenase (Santyl) APPLY TO NECROTIC AREA PRN PRN TOP SOILING Last administered on 05/21/16at 22:04; Admin Dose 3 APPLIC; Start 05/06/16 at 16:00 Aspirin (Aspirin) 81 mg DAILY GTB Last administered on 06/03/16 08:47; Admin Dose 81 MG; Start 05/10/16 at 09:00 Ascorbic Acid (Vitamin C) 500 mg DAILY GTB Last administered on 06/03/16 08:47 ; Admin Dose 500 MG; Start 05/10/16 at 11:00 Famotidine (Pepcid) 20 mg DAILY GTB Last administered on 06/03/16 08:47; Admin Dose 20 MG; Start 05/10/16 at 11:00 Acetaminophen/ Hydrocodone Bitart ([place] (5/325)) 1 tab Q6H PRN GTB MODERATE PAIN LEVEL 4-6; Start 05/10/16 at 13:30 Metoclopramide HCl (Reglan Liq) 10 mg Q6 GTB Last administered on 06/03/16 12: 19; Admin Dose 10 MG; Start 05/10/16 at 18:00 Hydralazine HCl (Apresoline) 25 mg Q8H GTB Last administered on 06/03/16 05:03 ; Admin Dose 25 MG; Start 05/14/16 at 20:00 Insulin Glargine (Lantus) 14 unit QPM SC Last administered on 06/02/16 21:25; Admin Dose 14 UNIT; Start 05/14/16 at 21:00 Citric Acid/ Sodium Citrate (Bicitra) 30 ml TID PO Last administered on 12:19; Admin Dose 30 ML; Start 05/15/16 at 21:00 Insulin Aspart (Novolog Insulin Pen) NOVOLOG *MODERATE* ALGORITHM Q8 SC Last administered on 06/02/16 06:05; Admin Dose 2 UNIT; Start 05/20/16 at 14:00 Voriconazole 200 mg 200 mg BID PO Last administered on 06/03/16 08:48; Admin Dose 200 MG; Start 05/29/16 at 21:00 Meropenem/Sodium Chloride (Merrem/NS) 100 ml @ 200 mls/hr Q12 IVPB Last administered on 06/03/16 08:45; Admin Dose 200 MLS/HR; Start 05/30/16 at 14:30 Linezolid (Zyvox) 600 mg BID PO Last administered on 1/12/17at 08:47; Admin Dose 600 MG; Start 05/30/16 at 13:00 Assessment/Plan Chief Complaint/Hosp Course DIAGNOSTICS: Chest x-ray 05/29 revealed patchy, hazy airspace opacity in the left lower lobe, likely customer response representative of 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 INDWELLINGS: Trach, PEG, Reynolds, rectal tube. Abx: Merrem, Zyvox, Vfend, Flagyl PHYSICAL EXAMINATION: GENERAL: Chronically ill-appearing, middle-aged woman who is lying comfortably in bed. The patient is noncommunicative. She withdraws to pain. She is in no distress. HEENT: Head atraumatic, normocephalic. Sclerae anicteric. Buccal mucosa dry. NECK: Supple. Tracheostomy present. CHEST: Rise symmetrical. Breath sounds diminished to bases. HEART: S1, S2. ABDOMEN: Soft, bowel tones present. EXTREMITIES: Without cyanosis. ASSESSMENT: 1. Systemic inflammatory response syndrome with persistent leukocytosis. 2. Healthcare-associated pneumonia. 3. Status post severe sepsis with shock. 4. Status post urinary tract infection. 5. Unstageable sacral decubitus. 6. Chronic encephalopathy. 7. 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 8. Seizure disorder. 9. Acute on chronic kidney disease. PLAN: The patient remains unchanged. Continue local care, abx, vent per pulmonary DW staff Problems: DUTCH STEELE NP Jun 03, 2016 15:30
--- NOTE | 2016-06-03 15:58 | CONS ---
Date/Time of Note Date/Time of Note DATE: 06/03/16 TIME: 15:57 Assessment/Plan Assessment/Plan Chief Complaint/Hosp Course IMPRESSION: 1. Patient has qohrz-[id number] kidney disease. 2. Acute renal failure drug induced atn 3. Underlying acute tubular necrosis due to sepsis/meds. 4. Severe sepsis.c diff 5. hypernatremia.better 6. Free water deficit.BETTER 7. RES FAILURE 8. Lactic acidosis.BETTER 9. vdrf. 10. Anemia. 11. History of tracheostomy. 12 METABOLIC ACIDOSIS better PLAN labs seen avoid nephrotoxic drugs per id bmp seen Problems: Consultation Date/Type/Reason Admit Date/Time May 04, 2016 at 05:51 Type of Consultation: renal Referring Provider: AMY HANKINS MD 24 HR Interval Summary Subjective hx not possible: pt non-verbal Exam/Review of Systems Vital Signs Vitals Vital Signs Date Time Temp Pulse Resp B/P Pulse Ox O2 Delivery O2 Flow Rate FiO2 06/03/16 15:31 98.0 100 20 106/76 99 06/03/16 15:10 30 06/02/16 11:23 Mechanical Ventilator Intake and Output 06/02/16 06/02/16 06/03/16 15:00 23:00 07:00 Intake Total 200 ml 570 ml Output Total 1350 ml Balance 200 ml -780 ml Exam Neck: supple Cardiovascular: regular rate and rhythm Gastrointestinal: soft Musculoskeletal: nl extremities to inspection Results Result Diagram: 06/01/16 0540 06/03/16 0610 Results 24 hrs Laboratory Tests Test 06/02/16 21:12 06/03/16 05:00 06/03/16 06:10 06/03/16 13:41 Bedside Glucose 111 109 118 Anion Gap 19 H Blood Urea Nitrogen 43 H Calcium Level 7.4 L Carbon Dioxide Level 22 Chloride Level 107 Creatinine 1.61 H Glucose Level 95 Potassium Level 3.7 Sodium Level 144 Medications Medications Current Medications Morphine Sulfate (morphine) 2 mg Q4H PRN IV SEVERE PAIN LEVEL 7-10 Last administered on 05/07/16at 18:26; Admin Dose 2 MG; Start 05/04/16 at 07:30 Docusate Sodium (Colace) 100 mg Q12H PRN PO CONSTIPATION; Start 05/04/16 at 07 :30 Lorazepam (Ativan) 0.5 mg Q6H PRN IV ANXIETY Last administered on 05/06/16at 23 :58; Admin Dose 0.5 MG; Start 05/04/16 at 07:30 Hydralazine HCl (Apresoline) 10 mg Q6H PRN IV ELEVATED BLOOD PRESSURE; Start 05/04/16 at 07:30 Nitroglycerin (Nitroglycerin (Sl Tab) 0.4 Mg) 1 tab Q5M PRN SL ANGINA; Start 05/04/16 at 07:30 Acetaminophen (Tylenol Supp) 650 mg Q4 PRN [place] PAIN OR TEMP ABOVE 38C; Start at 07:30 Atorvastatin Calcium (Lipitor) 20 mg QHS GTB Last administered on 06/02/16 21: 13; Admin Dose 20 MG; Start 05/04/16 at 21:00 Bisacodyl (Dulcolax Supp) 10 mg Q24H PRN [place] CONSTIPATION; Start 05/04/16 at 07 :30 Levetiracetam (Keppra Liquid) 1,000 mg Q12 GTB Last administered on 06/03/16 08:46; Admin Dose 1,000 MG; Start 05/04/16 at 09:00 Multivitamins (Thera-Plus) 5 ml DAILY GTB Last administered on 06/03/16 08:52 ; Admin Dose 5 ML; Start 05/04/16 at 09:00 Miscellaneous Information 1 ea NOTE XX ; Start 05/04/16 at 09:00 Glucose (Glutose) 15 gm Q15M PRN PO DECREASED GLUCOSE; Start 05/04/16 at 09:00 Glucose (Glutose) 22.5 gm Q15M PRN PO DECREASED GLUCOSE; Start 05/04/16 at 09: 00 Dextrose (D50w Syringe) 25 ml Q15M PRN IV DECREASED GLUCOSE; Start 05/04/16 at 09:00 Dextrose (D50w Syringe) 50 ml Q15M PRN IV DECREASED GLUCOSE; Start 05/04/16 at 09:00 Glucagon (Glucagen) 1 mg Q15M PRN IM DECREASED GLUCOSE; Start 05/04/16 at 09: 00 Glucose (Glutose) 15 gm Q15M PRN BUCCAL DECREASED GLUCOSE; Start 05/04/16 at 09:00 Acetaminophen (Tylenol Liquid) 650 mg Q6H PRN GTB PAIN LEVEL 1-3 OR FEVER Last administered on 05/20/16at 05:00; Admin Dose 650 MG; Start 05/04/16 at 18:30 Metronidazole (Flagyl) 500 mg Q8 GTB Last administered on 06/03/16 13:42; Admin Dose 500 MG; Start 05/05/16 at 14:00 Collagenase (Santyl) APPLY TO NECROTIC TISSUE DAILY TOP Last administered on 08:49; Admin Dose 1 APPLIC; Start 05/06/16 at 16:30 Collagenase (Santyl) APPLY TO NECROTIC AREA PRN PRN [place] SOILING Last administered on 05/21/16at 22:04; Admin Dose 3 APPLIC; Start 05/06/16 at 16:00 Aspirin (Aspirin) 81 mg DAILY GTB Last administered on 06/03/16 08:47; Admin Dose 81 MG; Start 05/10/16 at 09:00 Ascorbic Acid (Vitamin C) 500 mg DAILY GTB Last administered on 06/03/16 08:47 ; Admin Dose 500 MG; Start 05/10/16 at 11:00 Famotidine (Pepcid) 20 mg DAILY GTB Last administered on 06/03/16 08:47; Admin Dose 20 MG; Start 05/10/16 at 11:00 Acetaminophen/ Hydrocodone Bitart ([place] (5/325)) 1 tab Q6H PRN GTB MODERATE PAIN LEVEL 4-6; Start 05/10/16 at 13:30 Metoclopramide HCl (Reglan Liq) 10 mg Q6 GTB Last administered on 06/03/16 12: 19; Admin Dose 10 MG; Start 05/10/16 at 18:00 Hydralazine HCl (Apresoline) 25 mg Q8H GTB Last administered on 06/03/16 05:03 ; Admin Dose 25 MG; Start 05/14/16 at 20:00 Insulin Glargine (Lantus) 14 unit QPM SC Last administered on 06/02/16 21:25; Admin Dose 14 UNIT; Start 05/14/16 at 21:00 Citric Acid/ Sodium Citrate (Bicitra) 30 ml TID PO Last administered on 12:19; Admin Dose 30 ML; Start 05/15/16 at 21:00 Insulin Aspart (Novolog Insulin Pen) NOVOLOG *MODERATE* ALGORITHM Q8 SC Last administered on 06/02/16 06:05; Admin Dose 2 UNIT; Start 05/20/16 at 14:00 Voriconazole 200 mg 200 mg BID PO Last administered on 06/03/16 08:48; Admin Dose 200 MG; Start 05/29/16 at 21:00 Meropenem/Sodium Chloride (Merrem/NS) 100 ml @ 200 mls/hr Q12 IVPB Last administered on 06/03/16 08:45; Admin Dose 200 MLS/HR; Start 05/30/16 at 14:30 Linezolid (Zyvox) 600 mg BID PO Last administered on 06/03/16 08:47; Admin Dose 600 MG; Start 05/30/16 at 13:00 AMBER LIEBERMAN MD Jun 03, 2016 15:58
== END 2016-06-03 18:30 | DRG 870 ==
LOC: E/R 02:36 → TEL 05:51 → ICU 05-05 13:50 → TEL 05-08 23:28
PROVIDERS: ADMIT Hospitalist; ATTEND Hospitalist
PROC: 5A1955Z Respiratory Ventilation, Greater than 96 Consecutive Hours (ICD-10-PCS; principal; 2016-05-04)
PROC: 30233N1 Transfusion of Nonautologous Red Blood Cells into Peripheral Vein, Percutaneous Approach (ICD-10-PCS; 2016-05-09)
DX: A41.9 Sepsis, unspecified organism (principal); J96.20 Acute and chronic respiratory failure, unspecified whether with hypoxia or hypercapnia; N17.0 Acute kidney failure with tubular necrosis; R65.21 Severe sepsis with septic shock; J18.9 Pneumonia, unspecified organism; L89.154 Pressure ulcer of sacral region, stage 4; E87.0 Hyperosmolality and hypernatremia; G91.9 Hydrocephalus, unspecified; I50.30 Unspecified diastolic (congestive) heart failure; M86.9 Osteomyelitis, unspecified; E87.2 Acidosis; N39.0 Urinary tract infection, site not specified; I25.10 Atherosclerotic heart disease of native coronary artery without angina pectoris; I13.10 Hypertensive heart and chronic kidney disease without heart failure, with stage 1 through stage 4 chronic kidney disease, or unspecified chronic kidney disease; I95.9 Hypotension, unspecified; R13.10 Dysphagia, unspecified; B96.1 Klebsiella pneumoniae [K. pneumoniae] as the cause of diseases classified elsewhere; B95.61 Methicillin susceptible Staphylococcus aureus infection as the cause of diseases classified elsewhere; B96.7 Clostridium perfringens [C. perfringens] as the cause of diseases classified elsewhere; B37.9 Candidiasis, unspecified; E78.5 Hyperlipidemia, unspecified; E11.59 Type 2 diabetes mellitus with other circulatory complications; E11.22 Type 2 diabetes mellitus with diabetic chronic kidney disease; E86.0 Dehydration; E87.6 Hypokalemia; E11.69 Type 2 diabetes mellitus with other specified complication; Z66 Do not resuscitate; N18.9 Chronic kidney disease, unspecified; D63.8 Anemia in other chronic diseases classified elsewhere; G40.909 Epilepsy, unspecified, not intractable, without status epilepticus; Y95 Nosocomial condition; Z86.73 Personal history of transient ischemic attack (TIA), and cerebral infarction without residual deficits; Z87.891 Personal history of nicotine dependence; Z79.4 Long term (current) use of insulin; Z74.01 Bed confinement status; Z16.21 Resistance to vancomycin; Z93.1 Gastrostomy status
CPT/HCPCS: 36430; 36600; 71010; 80048; 80053; 80061; 81001; 81003; 82550; 82553; 82565; 82803; 82962; 83036; 83605; 83735; 83930; 83935; 84100; 84132; 84134; 84300; 84439; 84443; 84484; 84520; 85014; 85018; 85025; 85610; 85730; 86850; 86900; 86901; 86920; 87040; 87045; 87070; 87075; 87081; 87086; 89190; 90686; 93005; 94002; 94003; 94640; 94664; 96372; 96374; 96375; J0360; J1650; J1815; J2060; J2185; J2270; J2370; J2405; J2543; J3243; J3370; J3480; J7030; J7042; J7070; P9016